=== PATIENT | female | born 1960 | race Caucasian/White ===

== ENCOUNTER 2021-10-26 16:06 | Outpatient (CLI) | payer OTHER, SELFPAY ==
--- OUTSIDE RECORDS SUMMARY | 2021-10-26 16:11 | XMS_ITS | Encounter Summary ---
:1960 Author Organization [facility] Address [address] [place] [address] Care Team Providers Name Role Phone Reagan Campos, Eva Primary Care Provider [phone] Encounter Details Date Type Department Care Team Description 03/03/2021 Orders Only [facility] Reagan Campos Screen ing Mammogram Breast Cancer; MNVirgilio [place], Screening Exam ination Diabetes Mellitus; M.D. Hypothyroidism [address] [place] [address] Social History Tobacco Use Types Packs/Day Years Used Date Smoking Tobacco: Former Cigarettes 0.8 38 1973 - 2011 Smokeless Tobacco: Never Alcohol Use Standard Drinks/Week Comments No 0 (1 standard drink = 0.6 oz pure alcoho l) Alcohol Habits Answer Date Recorded How often do you have a drink containing alcohol? Never 12/11/2018 How many drinks containing alcohol do you have on a typical Not asked day when you are drinking? How often do you have six or more drinks on one occasion? No t asked Comment: Not asked Social Isolation Answer Date Recorded In a typical week, how many times do you talk on the Patient refused 12/11/2018 phone with family, friends, or neighbors? How often do you get together with friends or Once a week 12/11/2018 relatives? How often do you attend taoism or roman catholic services? Patien t refused 12/11/2018 Do you belong to any clubs or organizations such as Patient refused 12/11/2018 taoism groups, unions, fraternal or athletic groups, or school groups? How often do you attend meetings of the clubs or Patient ref used 12/11/2018 organizations you belong to? Are you now , , , , 12/11/2018 never or living with a partner? Physical Activity Answer Date Recorded On average, how many days per week do you engage in moderate to 5 days 12/11/2018 strenuous exercise (like walking fast, running, jogging, dancing, swimming, biking, or other activities that cause a light or heavy sweat)? On average, how many minutes do you engage in exercise at th is 20 min 12/11/2018 level? Stress Answer Date Recorded Do you feel stress - tense, restless, nervous, or Only a lit tle 12/11/2018 anxious, or unable to sleep at night because your mind is troubled all the time - these days? Intimate Partner Violence Answer Date Recorded Within the last year, have you been afraid of your partner o r No 12/11/2018 ex-partner? Within the last year, have you been humiliated or emotionall y No 12/11/2018 abused in other ways by your partner or ex-partner? Within the last year, have you been kicked, hit, slapped, or No 12/11/2018 otherwise physically hurt by your partner or ex-partner? Within the last year, have you been raped or forced to have any No 12/11/2018 kind of sexual activity by your partner or ex-partner? Transportation Needs Answer Date Recorded In the past 12 months, has lack of transportation kept you f rom No 12/11/2018 medical appointments or from getting medications? In the past 12 months, has lack of transportation kept you f rom No 12/11/2018 meetings, work, or getting things needed for daily living? Education Answer Date Recorded What is the highest level of school you have completed or 12 th grade 12/11/2018 the highest degree you have received? Sex Assigned at Date Recorded Not on file documented as of this encounter Plan of Treatment Not on filedocumented as of this encounter Visit Diagnoses Diagnosis Screening Mammogram Breast Cancer Screening Examination Diabetes Mellitus Hypothyroidism documented in this encounter Additional Health Concerns Assessment Noted Time PHQ-9 Depression Total Score: 1 03/04/2020 1:48 PM DELICATESSEN DEPARTMENT MANAGER documented as of this encounter Care Teams Outside Machinist Helper Relationship Specialty Start Date End Date Reagan Campos M.B.BBrigitteSBrigitte, MEdward. PCP - General 01/27/[address] [place] [address] Jennifer Juarez, [place] [address] documented as of this encounter
--- OUTSIDE RECORDS SUMMARY | 2021-10-26 16:11 | XMS_ITS | Encounter Summary ---
:1960 Author Organization [facility] Address [address] [place] [address] Care Team Providers Name Role Phone Reagan Campos M.D. Primary Care Provider [phone] Reason for Visit Reason Comments Med Refill Encounter Details Date Type Department Care Team Description 07/20/2020 Refill Department of Family Medicine, Katina Regalado APRN, Med Refill [facility], in [place], [place] 300 [facility] 300 [place] [address] [place] [address] [phone] Social History Tobacco Use Types Packs/Day Years [...] 12/11/2018 relatives? How often do you attend denominational or spiritism services? Patien t refused 12/11/2018 Do you belong to any clubs or organizations such as Patient refused 12/11/2018 denominational groups, unions, fraternal or athletic groups, or [...] filedocumented as of this encounter Visit Diagnoses Not on filedocumented in this encounter Additional Health Concerns Assessment Noted Time PHQ-9 Depression Total Score: 1 03/04/2020 1:48 PM CS T documented as of this encounter Care Teams Car Pusher Relationship Specialty Start Date End Date Reagan Campos M.B.B.S., M.D. PCP - General 01/27/[address] [place] [address] [place] [phone] documented as of this encounter
--- OUTSIDE RECORDS SUMMARY | 2021-10-26 16:11 | XMS_ITS | Encounter Summary ---
:1960 Author Organization [facility] Address [address] [place] [address] Care Team Providers Name Role Phone Reagan Campos M.D. Primary Care Provider [phone] Reason for Visit Reason Comments Med Refill Encounter Details Date Type Department Care Team Description 04/07/2021 Refill Department of Family Medicine, Katina Regalado APRN, Med Refill [facility], in [place], [place] 300 [facility] 300 [place] [address] [place] [address] [phone] Social History Tobacco Use Types Packs/Day Years [...] 12/11/2018 relatives? How often do you attend islam or temple services? Patien t refused 12/11/2018 Do you belong to any clubs or organizations such as Patient refused 12/11/2018 islam groups, unions, fraternal or athletic groups, or [...] documented as of this encounter Care Teams Station Air Traffic Control Specialist Relationship Specialty Start Date End Date Reagan Campos M.B.B.S., M.D. PCP - General 01/27/[address] [place] [address] Glenn [place] [phone] documented as of this encounter
--- OUTSIDE RECORDS SUMMARY | 2021-10-26 16:11 | XMS_ITS | Encounter Summary ---
:1960 Author Organization [facility] Address [address] [place] [address] Care Team Providers Name Role Phone Reagan Campos M.D. Primary Care Provider [phone] Reason for Visit Reason Comments Med Refill Encounter Details Date Type Department Care Team Description 07/04/2021 Refill Department of Family Medicine, Reagan Campos I., Med Refill [facility], in [place], [place] 300 [facility] 300 [place] [address] [place] [address] [phone] Social History Tobacco Use Types Packs/Day Years [...] 12/11/2018 relatives? How often do you attend roman catholic or spiritism services? Patien t refused 12/11/2018 Do you belong to any clubs or organizations such as Patient refused 12/11/2018 roman catholic groups, unions, fraternal or athletic groups, or [...] Depression Total Score: 1 03/04/2020 1:48 PM SCREEN DOOR MAKER documented as of this encounter Care Teams Middle School Professional Relationship Specialty Start Date End Date Reagan Campos M.B.B.S., M.D. PCP - General 01/27/[address] [place] [address] [place] [address] documented as of this encounter
--- OUTSIDE RECORDS SUMMARY | 2021-10-26 16:11 | XMS_ITS | Encounter Summary ---
:1960 Author Organization [facility] Address [address] [place] [address] Care Team Providers Name Role Phone Reagan Campos M.D. Primary Care Provider [phone] Reason for Referral Specialty Diagnoses / Procedures Referred By Contact Refer red To Contact Reagan Campos M.B.B.S., [facility] Eva [address] [place] [address] Referral ID Status Reason Start Date Expiration Date Visits Requ ested Visits Authorized DING KENNEL OR CATTERY OPERATOR Encounter Details Date Type Department Care Team Description 02/18/2021 Orders Only [facility] Reagan Campos M.B.B.S., M.D. [address] [place], [place] [phone] (Wo rk) Social History Tobacco Use Types Packs/Day Years [...] 12/11/2018 relatives? How often do you attend moravian or shinto services? Patien t refused 12/11/2018 Do you belong to any clubs or organizations such as Patient refused 12/11/2018 moravian groups, unions, fraternal or athletic groups, or [...] as of this encounter Plan of Treatment Scheduled Referrals Name Type Priority Associated Order Schedule Diagnoses Covid immunization Outpatient Referral Routine Ex pected: office visit Booster 021 (Approximate), Expires: 02/18/2022 documented as of this encounter Visit Diagnoses Not on filedocumented in this encounter Additional Health Concerns Assessment Noted Time PHQ-9 Depression Total Score: 1 03/04/2020 1:48 PM BOARDING KENNEL OR CATTERY OPERATOR documented as of this encounter Care Teams Classer Relationship Specialty Start Date End Date Reagan Campos M.B.B.S., Ayla. PCP - General 01/27/[address] [place] [id number] documented as of this encounter
--- OUTSIDE RECORDS SUMMARY | 2021-10-26 16:11 | XMS_ITS | Encounter Summary ---
:1960 Author Organization [facility] Address [address] [place] [address] Care Team Providers Name Role Phone Reagan Campos M.D. Primary Care Provider [phone] Reason for Referral Specialty Diagnoses / Procedures Referred By Contact Refer red To Contact [address] [address] Referral ID Status Reason Start Date Expiration Date Visits Requ ested Visits Authorized Encounter Details Date Type Department Care Team Description 2020 Immunization Department of Daniela Ceballos Enco unter [facility], in [place] [address] [address] [facility] (Primary Dx) [address] [address] [place], [place] [phone] (Work) [phone] Social History Tobacco Use Types Packs/Day Years [...] 12/11/2018 relatives? How often do you attend yazidi or muslim services? Giulia t refused 12/11/2018 Do you belong to any clubs or organizations such as Patient refused 12/11/2018 yazidi groups, unions, fraternal or athletic groups, or [...] Treatment Scheduled Referrals Name Type Priority Associated Diagnoses Order S chedule Covid immunization Outpatient Referral Routine Encounter For E xpected: office visit COVID-19 Vaccine 08/11/2020, Subsequent; 21 days Immunization Expires: 07/22/2023 documented as of this encounter Visit Diagnoses Diagnosis Encounter For COVID-19 Vaccine Immunizat ion - Primary documented in this encounter Additional Health Concerns Assessment Noted Time PHQ-9 Depression Total Score: 1 03/04/2020 1:48 PM AIR QUALITY ENGINEER documented as of this encounter Care Teams Sweatband Perforator Relationship Specialty Start Date End Date Reagan Campos M.B.BJp, Ayla. PCP - General 01/27/[address] [place] [address] [place] [address] documented as of this encounter
--- OUTSIDE RECORDS SUMMARY | 2021-10-26 16:11 | XMS_ITS | Encounter Summary ---
:1960 Author Organization [facility] Address [address] [place] [address] Care Team Providers Name Role Phone Reagan Campos M.D. Primary Care Provider [phone] Reason for Visit Reason Comments Med Refill Encounter Details Date Type Department Care Team Description 08/30/2020 Refill Department of Family Medicine, Katina Regalado APRN, Med Refill [facility], in [place], [place] 300 [facility] 300 [place] [address] [place] [address] [phone] Social History Tobacco Use Types Packs/Day Years [...] 12/11/2018 relatives? How often do you attend scientologist or catholic services? Patien t refused 12/11/2018 Do you belong to any clubs or organizations such as Patient refused 12/11/2018 scientologist groups, unions, fraternal or athletic groups, or [...] documented as of this encounter Care Teams Bag Filler Relationship Specialty Start Date End Date Reagan Campos M.B.B.S., M.D. PCP - General 01/27/[address] [place] [address] [place] [phone] documented as of this encounter
--- OUTSIDE RECORDS SUMMARY | 2021-10-26 16:11 | XMS_ITS | Encounter Summary ---
:1960 Author Organization [facility] Address [address] [place] [address] Care Team Providers Name Role Phone Reagan Campos M.D. Primary Care Provider [phone] Encounter Details Date Type Department Care Team Description 08/16/2020 Immunization Department of [facility] For COVID-19 Medicine, [facility], in [place], [place] [address] [place] [address] [facility] [phone] Social History Tobacco Use Types Packs/Day Years [...] 12/11/2018 relatives? How often do you attend confucianism or quaker services? Patien t refused 12/11/2018 Do you belong to any clubs or organizations such as Patient refused 12/11/2018 confucianism groups, unions, fraternal or athletic groups, or [...] Diagnosis Encounter For COVID-19 Vaccine Immunizat ion documented in this encounter Additional Health Concerns Assessment Noted Time PHQ-9 Depression Total Score: 1 03/04/2020 1:48 PM ASSISTANT DISTRIBUTION MANAGER documented as of this encounter Care Teams Womens Health Nurse Practitioner Relationship Specialty Start Date End Date Reagan Campos M.B.BAyla Trammell. PCP - General 01/27/[address] [place] [address] [place], [place] [phone] documented as of this encounter
--- OUTSIDE RECORDS SUMMARY | 2021-10-26 16:11 | XMS_ITS | Clinical Summary ---
:1960 Author Organization [facility] Address [address] [place] [address] Care Team Providers Name Role Phone Reagan Campos M.D. Primary Care Provider [phone] Source Comments Patient records contain information from all sites at [facility]. For routine questions regarding patient records, call [phone] during business hours, M-F 8:00 AM - 5:00 PM Central Time. Record requests for emergency care only can be directed to [phone] at any time.[facility] Allergies Active Allergy Reactions Severity Noted Date Comments Codeine Other (see comments) 01/06/2014 Mood ch anges and several other symptoms. Medications Medication Sig Dispensed Refills Start Date End Date Status melatonin 5 mg tablet Take by mouth. 0 Active B complex-vitamins Take 1 tablet by 0 Active (BALANCE B-50) tablet mouth daily. buPROPion (WELLBUTRIN TAKE 1 180 tablet 3 11/22/2020 Active SR) 200 mg 12 hr TABLET(200 MG) tablet BY MOUTH TWICE DAILY levothyroxine TAKE 1 TABLET(75 90 tablet 3 01/25/2021 Active (SYNTHROID, MCG) BY MOUTH LEVOTHROID) 75 mcg DAILY tablet sertraline (ZOLOFT) TAKE 2 180 tablet 3 04/08/2021 Active 100 mg tablet TABLETS(200 MG) BY MOUTH DAILY gabapentin (NEURONTIN) TAKE 3 270 capsule 3 07/05/2021 Active 100 mg capsule CAPSULES(300 MG) BY MOUTH AT BEDTIME rosuvastatin (CRESTOR) TAKE 1 TABLET(20 90 tablet 3 08/17/2021 Active 20 mg tablet MG) BY MOUTH DAILY Active Problems Problem Noted Date Depression Major Recurrent 09/24/2017 Hypothyroidism 09/24/2017 Personal History Of Nicotine Dependence 09/24/2017 Overweight Body Mass Index 25-29.9 Adult 09/24/2017 Hyperlipidemia Mixed 09/24/2017 Impaired Fasting Glucose 07/13/2016 Overview: glucose 103 Osteoarthritis 12/15/2014 Restless Leg Syndrome 07/10/2013 Resolved Problems Problem Noted Date Resolved Date Incontinence Urinary Stress Female 11/02/201704/09 Depression Anxiety 03/24/2015 09/24/2017 Overview: Depression Anxiety Bone Disorder 02/23/2010 12/11/2018 Overview: DEXA 02/23/2010 low normal DEXA 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/11/2018 Dysthymia 09/01/2009 09/24/2017 Overview: Dysthymic Disorder Encounters Date Type Specialty Care Team Description 08/16/2021 Refill Family Medicine Reagan Campos M.B.B BrigitteSBrigitte, M.Nereyda Med Refill from Last 3 Months Immunizations Name Administration Dates Next Due SARS-COV-2 (COVID-19) - PFIZER (12 years or older) 1, 2020 Td (Adult), adsorbed 07/29/1996 influenza vaccine quad (FLUZONE/FLUARIX) (6 months 1 and older)(PF) Family History Medical History Relation Name Comments Bipolar Aunt Maternal Breast cancer Daughter 1 Depression Daughter 1 No Known Problems Daughter 2 Depression Daughter 3 Depression Daughter 4 Lung cancer Maternal Grandfather Smoker Hypothyroidism Maternal Grandmother Menieres disease Maternal Grandmother Diabetes mellitus - adult onset Mother Schizophrenia Mother Cancer Paternal Grandfather No Known Problems Paternal Grandmother Hypothyroidism Sister 1 Relation Name Status Comments Aunt Maternal Alive Brother Alive Daughter 1 Daughter 2 Daughter 3 Daughter 4 Father Alive Maternal Grandfather (Age 80) Maternal Grandmother Mother Alive Paternal Grandfather Paternal Grandmother (Age 88) Sister 1 Alive Sister 2 Alive Social History Tobacco Use Types Packs/Day Years [...] 12/11/2018 relatives? How often do you attend alevism or yarsanism services? Patien t refused 12/11/2018 Do you belong to any clubs or organizations such as Patient refused 12/11/2018 alevism groups, unions, fraternal or athletic groups, or [...] Assigned at Date Recorded Not on file Last Filed Vital Signs Vital Sign Reading Time Taken Comments Blood Pressure 124/74 03/04/2020 1:49 PM DIRECTOR OF RESEARCH Pulse 65 03/04/2020 1:49 PM DIRECTOR OF RESEARCH Temperature 36.4 ??C (97.5 ??F) 03/04/2020 1:49 PM DIRECTOR OF RESEARCH Respiratory Rate 16 03/04/2020 1:49 PM DIRECTOR OF RESEARCH Oxygen Saturation - - Inhaled Oxygen Concentration - - Weight 72.3 kg (159 lb 6.3 oz) 03/08/2020 9:05 AM DIRECTOR OF RESEARCH Height 168.2 cm (5' 6.22) 03/08/2020 9:05 AM DIRECTOR OF RESEARCH Body Mass Index 25.56 03/08/2020 9:05 AM DIRECTOR OF RESEARCH Plan of Treatment Health Maintenance Due Date Last Done Comments CT Colonography 1960 Cologuard 1960 FIT 1960 HIV Screening 1960 Hepatitis C Screening 1960 Lung Cancer Screening 1960 DTaP,Tdap,and Td Vaccines 07/30/1996 07/29/1996 (1 - Tdap) Zoster Vaccines (1 of 2) 2010 Depression Monitoring 07/02/2020 03/04/2020 (PHQ-9) COVID-19 Vaccine (3 - 01/16/2021 08/16/2020, 2020 Booster for Pfizer series) Fasting Glucose for 03/09/2021 03/09/2020, 12/12/2018, Diabetes Screening 11/01/2017, Additional history exists Thyroid Stimulating Hormone 03/09/2021 03/09/2020, 12/13/19 19, (TSH) test for thyroid 09/20/2017, Additional function history exists Mammogram 03/16/2021 03/16/2020, 03/04/2020, 12/12/2018, Additional history exists Influenza Vaccine (#1) 2021 03/04/2020 Cervical Cancer Screening 11/01/2022 11/01/2017, 11/01/2017 , 07/27/2014, Additional history exists Colonoscopy 01/14/2023 01/14/2013 Colorectal Cancer Screening 01/14/2023 Lipid (Cholesterol) 03/09/2025 03/09/2020, 12/12/2018, Screening 11/01/2017, Additional history exists Pneumococcal vaccine (0-64 Aged Out No lo nger eligible years) based on patient 's age to complete this topic Insurance Payer Benefit Plan / Subscriber ID Effective Phone Address T ype Group Dates [facility] [id number] 2018-Pres [phone] [address] [employer] [phone] [place] [address] Care Teams Bottle Label Inspector Relationship Specialty Start Date End Date Reagan Campos M.B.BBrigitteSBrigitte, MEdward. PCP - General 01/27/[address] [place] [address] [place] [phone]
--- OUTSIDE RECORDS SUMMARY | 2021-10-26 16:11 | XMS_ITS | Encounter Summary ---
:1960 Author Organization [facility] Address [address] [place] [address] Care Team Providers Name Role Phone Reagan Campos M.D. Primary Care Provider [phone] Reason for Visit Reason Comments Med Refill Encounter Details Date Type Department Care Team Description 01/23/2021 Refill Department of Family Medicine, Reagan Campos I., Med Refill [facility], in [place], [place] 300 [facility] 300 [place] [address] [place] [address] [phone] Social History Tobacco Use Types Packs/Day Years [...] 12/11/2018 relatives? How often do you attend mormon or sikh services? Patien t refused 12/11/2018 Do you belong to any clubs or organizations such as Patient refused 12/11/2018 mormon groups, unions, fraternal or athletic groups, or [...] on file documented as of this encounter Miscellaneous Notes Telephone Encounter - Roselia Corcoran - 01/25/2021 1:09 PM CST Lab Results Component Value Date TSH 1.3 03/09/2020 FITTER AMMONIA documented in this encounter Plan of Treatment Not on filedocumented as of this encounter Visit Diagnoses Not on filedocumented in this encounter Additional Health Concerns Assessment Noted Time PHQ-9 Depression Total Score: 1 03/04/2020 1:48 PM PIPE FITTER AMMONIA documented as of this encounter Care Teams System Sales Consultant Relationship Specialty Start Date End Date Reagan Campos M.B.B.S., M.D. PCP - General 01/27/[address] [place] [address] [place] [address] documented as of this encounter
--- OUTSIDE RECORDS SUMMARY | 2021-10-26 16:11 | XMS_ITS | Encounter Summary ---
:1960 Author Organization [facility] Address [address] [place] [address] Care Team Providers Name Role Phone Reagan Campos M.D. Primary Care Provider [phone] Reason for Visit Reason Comments Med Refill Encounter Details Date Type Department Care Team Description 11/19/2020 Refill Department of Family Medicine, Katina Regalado APRN, Med Refill [facility], in [place], [place] 300 [facility] 300 [place] [address] [place] [address] [phone] Social History Tobacco Use Types Packs/Day Years [...] 12/11/2018 relatives? How often do you attend druze or amish services? Patien t refused 12/11/2018 Do you belong to any clubs or organizations such as Patient refused 12/11/2018 druze groups, unions, fraternal or athletic groups, or [...] documented as of this encounter Care Teams Senior Operator Relationship Specialty Start Date End Date Reagan Campos M.B.B.S., M.D. PCP - General 01/27/[address] [place] [address] [place] [phone] documented as of this encounter
--- OUTSIDE RECORDS SUMMARY | 2021-10-26 16:11 | XMS_ITS | Encounter Summary ---
:1960 Author Organization [facility] Address [address] [place] [address] Care Team Providers Name Role Phone Reagan Campos M.D. Primary Care Provider [phone] Reason for Visit Reason Comments Med Refill Encounter Details Date Type Department Care Team Description 01/11/2021 Refill Department of Family Medicine, Reagan Campos I., Med [facility]ill [facility], in [place], [place] 300 [facility] 300 [place] [address] [place] [address] [phone] Social History Tobacco Use Types Packs/Day Years [...] 12/11/2018 relatives? How often do you attend hoahaoism or advent services? Patien t refused 12/11/2018 Do you belong to any clubs or organizations such as Patient refused 12/11/2018 hoahaoism groups, unions, fraternal or athletic groups, or [...] Depression Total Score: 1 03/04/2020 1:48 PM POULTICE MACHINE OPERATOR documented as of this encounter Care Teams Barrel Tester Relationship Specialty Start Date End Date Reagan Campos M.B.B.S., M.D. PCP - General 01/27/[address] [place] [address] [place] [address] documented as of this encounter
--- OUTSIDE RECORDS SUMMARY | 2021-10-26 16:12 | XMS_ITS | Encounter Summary ---
:1960 Author Organization [facility] Address [address] [place] [address] Care Team Providers Name Role Phone Reagan Campos M.D. Primary Care Provider [phone] Reason for Visit Reason Comments Med Refill Encounter Details Date Type Department Care Team Description 01/13/2020 Refill Department of Family Medicine, Carrie Hirsch APRN, Med Refill [facility], in [place], [place] [address] [address] [place] [address] [phone] Social History Tobacco Use Types Packs/Day Years Used Date Smoking Tobacco: Former Smokeless Tobacco: Never Alcohol Use Standard Drinks/Week [...] 12/11/2018 relatives? How often do you attend bahai or christianity services? Patien t refused 12/11/2018 Do you belong to any clubs or organizations such as Patient refused 12/11/2018 bahai groups, unions, fraternal or athletic groups, or [...] Assessment Noted Time PHQ-9 Depression Total Score: 5 12/12/2018 7:47 AM CDT documented as of this encounter Care Teams Supervisor Carbon Electrodes Relationship Specialty Start Date End Date Reagan Campos M.B.B.S., M.D. PCP - General 01/27/[address] [place], [place] [address]miranda [place], [place] [address] documented as of this encounter
--- OUTSIDE RECORDS SUMMARY | 2021-10-26 16:12 | XMS_ITS | Encounter Summary ---
:1960 Author Organization [facility] Address [address] [place] [address] Care Team Providers Name Role Phone Reagan Campos M.D. Primary Care Provider [phone] Encounter Details Date Type Department Care Team Description 02/18/2020 Clinical Communication Department of [place], Obstetrics and Sheri BLACK, Gynecology in [facility] [address] [place] [address] [facility] [phone] Social History Tobacco Use Types Packs/Day Years [...] 12/11/2018 relatives? How often do you attend jew or worship services? Patien t refused 12/11/2018 Do you belong to any clubs or organizations such as Patient refused 12/11/2018 jew groups, unions, fraternal or athletic groups, or [...] this encounter Miscellaneous Notes Telephone Encounter - Claudia Joe Millicent - 02/18/2020 10:21 AM CST Reason for Communication: Patient is requesting to see Dr. Torres for an annual well woman exam Current Can Nursing/Provider leave a detailed message?: yes Did the patient refuse triage through Nurse line? (for symptom based concerns): na Action Needed: please advise Name of Medication (if relevant): CREAM FREEZER documented in this encounter Plan of Treatment Not on filedocumented as of this encounter Visit Diagnoses Not on filedocumented in this encounter Additional Health Concerns Assessment Noted Time PHQ-9 Depression Total Score: 5 12/12/2018 7:47 AM CDT documented as of this encounter Care Teams House Carpenter Helper Relationship Specialty Start Date End Date Reagan Campos M.B.B.S., MEdward. PCP - General 01/27/[address] [place] [address] [place] [phone] documented as of this encounter
--- OUTSIDE RECORDS SUMMARY | 2021-10-26 16:12 | XMS_ITS | Encounter Summary ---
:1960 Author Organization [facility] Address [address] [place] [address] Care Team Providers Name Role Phone Reagan Campos M.D. Primary Care Provider [phone] Reason for Referral Outpatient (Routine) - Closed Specialty Diagnoses / Procedures Referred By Contact Refer red To Contact Diagnoses Abnormal Mammogram Reagan Campos [facility] [place] [facility] Procedures BI Breast Diagnostic Left with Tomosynthesis Eva Poole [address] [place] [address] Referral ID Status Reason Start Date Expiration Date Visits Requ ested Visits Authorized [id number] Closed 03/04/2020 03/04/2021 1 1 D HANGER Reason for Visit Outpatient (Routine) - Closed Specialty Diagnoses / Procedures Referred By Contact Refer red To Contact Diagnoses Abnormal Mammogram Reagan Campos [facility] [place] [facility] Procedures BI Breast Diagnostic Left with Tomosynthesis CristobalBBrigitteSEva Briggs [address] [place] [address] Referral ID Status Reason Start Date Expiration Date Visits Requ ested Visits Authorized [id number] Closed 03/04/2020 03/04/2021 1 1 Encounter Details Date Type Department Care Team Description 03/16/2020 Hospital Encounter Department of Reagan Campos Mammogram Radiology in Virgilio Rubin [place], [place] M.D. [address] [place] [phone] Social History Tobacco Use Types Packs/Day Years [...] 12/11/2018 relatives? How often do you attend gnosticist or sabianism services? Patien t refused 12/11/2018 Do you belong to any clubs or organizations such as Patient refused 12/11/2018 gnosticist groups, unions, fraternal or athletic groups, or [...] on file documented as of this encounter Medications at Time of Discharge Medication Sig Dispensed Refills Start Date End Date B complex-vitamins Take 1 tablet by 0 (BALANCE B-50) tablet mouth daily. melatonin 5 mg tablet Take by mouth. 0 buPROPion (WELLBUTRIN Take 1 tablet (200 180 tablet 1 202011/19/2020 SR) 200 mg 12 hr tablet mg total) by mouth 2 (two) times a day. gabapentin (NEURONTIN) Take 3 capsules 270 capsule 0 021 2020 100 mg capsule (300 mg total) by mouth at bedtime. levothyroxine Take 1 tablet (75 90 tablet 3 12/22/201912/29 (SYNTHROID, LEVOTHROID) mcg total) by mouth 75 mcg tablet daily. rosuvastatin (CRESTOR) Take 2 tablets (20 90 tablet 3 03/1008/31/2020 10 mg tablet mg total) by mouth daily. Start with one tab for 2 weeks, then increase to 2 tabs daily for a total of 20 mg daily. sertraline (ZOLOFT) 100 Take 2 tablets (200 180 tablet 3 08/202001/13/2021 mg tablet mg total) by mouth daily. documented as of this encounter Plan of Treatment Not on filedocumented as of this encounter Procedures Procedure Name Priority Date/Time Associated Comments Diagnosis BI BREAST DIAGNOSTIC RAD - Routine 03/16/2020 1:46 Abnormal Res ults for LEFT WITH (most inpatients PM BLIND HANGER Mammogram this proced ure TOMOSYNTHESIS and all are in the outpatients) results section. documented in this encounter Results BI Breast Diagnostic Left with Tomosynthesis (03/16/2020 1:46 PM BLIND HANGER) Anatomical Region Laterality Modality Breast, Breast Imaging RST LOS, Breast Imaging ARZ LOS, Shi st Left Mammography Imaging FLA LOS Specimen (Source) Anatomical Collection Method Collection Time Re ceived Time Location / / Volume Laterality 03/16/2020 3:55 PM BLIND HANGER Impressions 03/16/2020 4:00 PM BLIND HANGER No mammographic findings of malignancy. RECOMMENDATION: ??Annual Screening Mammo gram I discussed my findings and impression w ith the patient. Specifically, I discussed the concordance of the mammogr aphic finding with the ultrasound finding of a cystic structure typical of clustered microcysts without suspicious features such as mass or Doppler flow. W e briefly discussed the scientific underpinnings for clustered microcysts a s a benign finding. We discussed overall stability of the left breast. I recommen d patient return for annual screening mammography. I told the patient to repor t any new or changing symptoms in either breast to her primary care provider. All questions answered. ASSESSMENT: ??BI-RADS: 2: Benign. Narrative 03/16/2020 4:00 PM BLIND HANGER EXAM: ??BI BREAST DIAGNOSTIC LEFT WITH TOMOSYNTHESIS, BI ULTRASOUND BREAST FOCUSED LEFT INDICATION: ??Possible area of focal asy mmetry in the upper-outer depth left breast. COMPARISON: ??Prior studies dating back to 2009. DENSITY: ??c. The breast(s) are heteroge neously dense, which may obscure small masses. FINDINGS: ?? MAMMOGRAPHY: Possible focal asymmetry pe rsists as a lobulated isodense mass in the left slightly outer slightly lower b reast 1 cm from the nipple. ULTRASOUND: Targeted ultrasound of the l eft breast shows at the 4:00 position 1 cm from the nipple a circumscribed anech oic mass measuring 0.7 x 0.4 x 0.8 cm with small internal cysts/septations wit h features typical of clustered microcyst. This corresponds in size and location and morphology with the mammographic finding. I confirmed these findings myself with live ultrasound. Procedure Note Elton Calderon M.D. - 03/16/2020Formatt ing of this note might be different from the original. EXAM: BI BREAST DIAGNOSTIC LEFT WITH PETE OSYNTHESIS, BI ULTRASOUND BREAST FOCUSED LEFT INDICATION: Possible area of focal asymm etry in the upper-outer depth left breast. COMPARISON: Prior studies dating back to 2009. DENSITY: c. The breast(s) are heterogene ously dense, which may obscure small masses. FINDINGS: MAMMOGRAPHY: Possible focal asymmetry pe rsists as a lobulated isodense mass in the left slightly outer slightly lower b reast 1 cm from the nipple. ULTRASOUND: Targeted ultrasound of the l eft breast shows at the 4:00 position 1 cm from the nipple a circumscribed anech oic mass measuring 0.7 x 0.4 x 0.8 cm with small internal cysts/septations wit h features typical of clustered microcyst. This corresponds in size and location and morphology with the mammographic finding. I confirmed these findings myself with live ultrasound. IMPRESSION: No mammographic findings of malignancy. RECOMMENDATION: Annual Screening Mammogr am I discussed my findings and impression w ith the patient. Specifically, I discussed the concordance of the mammogr aphic finding with the ultrasound finding of a cystic structure typical of clustered microcysts without suspicious features such as mass or Doppler flow. W e briefly discussed the scientific underpinnings for clustered microcysts a s a benign finding. We discussed overall stability of the left breast. I recommen d patient return for annual screening mammography. I told the patient to repor t any new or changing symptoms in either breast to her primary care provider. All questions answered. ASSESSMENT: BI-RADS: 2: Benign. Reagan Poole M.D. IMG BI PROCEDURES documented in this encounter Visit Diagnoses Diagnosis Abnormal Mammogram documented in this encounter Additional Health Concerns Assessment Noted Time PHQ-9 Depression Total Score: 1 03/04/2020 1:48 PM BLIND HANGER documented as of this encounter Care Teams Commercial Loan Manager Relationship Specialty Start Date End Date Reagan Campos M.B.B.S., M.D. PCP - General 01/27/[address] [place] [phone] documented as of this encounter
--- OUTSIDE RECORDS SUMMARY | 2021-10-26 16:12 | XMS_ITS | Encounter Summary ---
:1960 Author Organization [facility] Address [address] [place] [address] Care Team Providers Name Role Phone Reagan Campos M.D. Primary Care Provider [phone] Reason for Visit Reason Comments Med Refill Encounter Details Date Type Department Care Team Description 12/22/2019 Refill Department of Family Medicine, Reagan Campos I., Med Refill [facility], in Stephen Poole [place], [place] 300 [facility] [address] [place] [address] [place] [address] [phone] Social History Tobacco Use Types Packs/Day Years [...] How often do you attend druze or samaritan services? Patien t refused 12/11/2018 Do you [...] documented as of this encounter Care Teams Design Studio Consultant Relationship Specialty Start Date End Date Reagan Campos M.B.B.S., M.D. PCP - General 01/27/[address] [place] [address] Jennifer [place] [phone] documented as of this encounter
--- OUTSIDE RECORDS SUMMARY | 2021-10-26 16:12 | XMS_ITS | Encounter Summary ---
:1960 Author Organization [facility] Address [address] [place] [address] Care Team Providers Name Role Phone Reagan Campos M.D. Primary Care Provider [phone] Reason for Referral Outpatient (Routine) - Closed Specialty Diagnoses / Procedures Referred By Contact Refer red To Contact Diagnoses Screening Mammogram Breast Cancer Reagan Campos [facility] [place] [facility] Procedures BI Breast Screening Bilateral Stephen.BBrigitteBEva Trammell [address] [place] [address] Referral ID Status Reason Start Date Expiration Date Visits Requ ested Visits Authorized [id number] Closed 12/01/2019 11/30/2020 1 1 H CLEANER Reason for Visit Outpatient (Routine) - Closed Specialty Diagnoses / Procedures Referred By Contact Refer red To Contact Diagnoses Screening Mammogram Breast Cancer Reagan Campos [facility] [place] [facility] Procedures BI Breast Screening Bilateral Stephen.BBrigitteBEva Trammell [address] [place] [address] Referral ID Status Reason Start Date Expiration Date Visits Requ ested Visits Authorized [id number] Closed 12/01/2019 11/30/2020 1 1 Encounter Details Date Type Department Care Team Description 03/04/2020 Hospital Encounter Department of Reagan Campos Mammogram Radiology in I., M.B.B.S., Breast Cancer [place], [place] Eva [address] [facility] 300 [facility] [place] [phone] Social History Tobacco Use Types Packs/Day Years Used Date Smoking Tobacco: Former Cigarettes 0.5 Quit : 2011 Smokeless Tobacco: Never Comments: Estimates 40 years of smoking history where she smoked .5-1 pack per day Alcohol Use Standard Drinks/Week Comments No 0 [...] 12/11/2018 relatives? How often do you attend zoroastrian or oriental orthodox services? Patien t refused 12/11/2018 Do you belong to any clubs or organizations such as Patient refused 12/11/2018 zoroastrian groups, unions, fraternal or athletic groups, or [...] a day. gabapentin (NEURONTIN) Take 3 capsules (300 270 capsule 0 2020 100 mg capsule mg total) by mouth at bedtime. levothyroxine Take 1 tablet (75 90 tablet 3 12/22/201912/29 (SYNTHROID, LEVOTHROID) mcg total) by mouth 75 mcg tablet daily. pravastatin (PRAVACHOL) Take 1 tablet (20 mg 90 tablet 3 03/10/2020 20 mg tablet total) by mouth at bedtime. A higher dose of medication would be advised sertraline (ZOLOFT) 100 Take 2 tablets (200 180 tablet 3 08/202001/13/2021 mg tablet mg total) by mouth daily. documented as of this encounter Plan of Treatment Not on filedocumented as of this encounter Procedures Procedure Name Priority Date/Time Associated Comments Diagnosis BI BREAST RAD - Routine 03/04/2020 1:20 Screening Results for this SCREENING (most inpatients PM BOOTH CLEANER Mammogram Breast procedu re are in BILATERAL and all Cancer the results outpatients) section. documented in this encounter Results (ABNORMAL) BI Breast Screening Bilateral (03/04/2020 1:20 PM BOOTH CLEANER) Anatomical Region Laterality Modality Breast, Breast Imaging RST LOS, Breast Imaging ARZ LOS, Shi st Bilateral Mammography Imaging FLA LOS Specimen (Source) Anatomical Collection Method Collection Time Re ceived Time Location / / Volume Laterality 03/04/2020 1:25 PM BOOTH CLEANER Impressions 03/04/2020 1:26 PM BOOTH CLEANER Incomplete. ??Need additional imaging evaluation. RECOMMENDATION: ??Additional Imaging Diagnostic imaging and breast ultrasound evaluation. ASSESSMENT: ??BI-RADS: 0 - Incomplete: N eeds Additional Imaging Evaluation. Narrative 03/04/2020 1:26 PM BOOTH CLEANER EXAM: ??BI BREAST SCREENING BILATERAL Current study was evaluated with a [employer] Aided Detection (CAD) system. INDICATION: ??Screening mammogram. COMPARISON: ??Prior exam(s) were availab le and reviewed for comparison. DENSITY: ??c. The breast(s) are heteroge neously dense, which may obscure small masses. FINDINGS: ??Possible area of focal asymm etry within the upper, outer anterior/middle depth of the left breast . Patient will recalled by the radiology d epartment for additional diagnostic evaluation of the left breast. Nothing for malignancy within the right breast. Procedure Note Tani Oseguera M.D. - 03/04/2020Forma tting of this note might be different from the original. EXAM: BI BREAST SCREENING BILATERAL Current study was evaluated with a [employer] Aided Detection (CAD) system. INDICATION: Screening mammogram. COMPARISON: Prior exam(s) were available and reviewed for comparison. DENSITY: c. The breast(s) are heterogene ously dense, which may obscure small masses. FINDINGS: Possible area of focal asymmet ry within the upper, outer anterior/middle depth of the left breast . Patient will recalled by the radiology d epartment for additional diagnostic evaluation of the left breast. Nothing for malignancy within the right breast. IMPRESSION: Incomplete. Need additional imaging eval uation. RECOMMENDATION: Additional Imaging Diagnostic imaging and breast ultrasound evaluation. ASSESSMENT: BI-RADS: 0 - Incomplete: Nee ds Additional Imaging Evaluation. Reagan Poole M.D. IMG BI PROCEDURES documented in this encounter Visit Diagnoses Diagnosis Screening Mammogram Breast Cancer documented in this encounter Additional Health Concerns Assessment Noted Time PHQ-9 Depression Total Score: 1 03/04/2020 1:48 PM BOOTH CLEANER documented as of this encounter Care Teams Inside Finisher Relationship Specialty Start Date End Date Reagan Campos M.B.B.S., M.D. PCP - General 01/27/[address] [place] [phone] documented as of this encounter
--- OUTSIDE RECORDS SUMMARY | 2021-10-26 16:12 | XMS_ITS | Encounter Summary ---
:1960 Author Organization [facility] Address [address] [place] [address] Care Team Providers Name Role Phone Danica England M.D. Primary Care Provider Encounter Details Date Type Department Care Team Description 12/12/2018 Hospital Encounter Department of Danica England Routine Screening Radiology in Eva Faria Breast Exam [address] [place] [phone] Social History Tobacco Use Types Packs/Day [...] 12/11/2018 relatives? How often do you attend jewish or latter day services? Patien t refused 12/11/2018 Do you belong to any clubs or organizations such as Patient refused 12/11/2018 jewish groups, unions, fraternal or athletic groups, or [...] (WELLBUTRIN Take 1 tablet (200 180 tablet 3 201801/17/2019 SR) 200 mg 12 hr tablet mg total) by mouth 2 (two) times a day. gabapentin (NEURONTIN) Take 3 capsules (300 270 capsule 3 02/03/2020 100 mg capsule mg total) by mouth at bedtime. levothyroxine Take 1 tablet (75 90 tablet 3 12/12/201811/27 (SYNTHROID, LEVOTHROID) mcg total) by mouth 75 mcg tablet daily. pravastatin (PRAVACHOL) Take 1 tablet (20 mg 90 tablet 0 03/12/2019 20 mg tablet total) by mouth at bedtime. A higher dose of medication would be advised sertraline (ZOLOFT) 100 Take 2 tablets (200 180 tablet 3 12/16/2019 mg tablet mg total) by mouth daily. documented as of this encounter Plan of Treatment Not on filedocumented as of this encounter Procedures Procedure Name Priority Date/Time Associated Comments Diagnosis BI BREAST RAD - Routine 12/12/2018 9:04 Routine Screening Result s for this SCREENING (most inpatients AM CDT Breast Exam procedure a re in BILATERAL and all the results outpatients) section. documented in this encounter Results BI Breast Screening Bilateral (12/12/2018 9:04 AM CDT) Anatomical Region Laterality Modality Breast, Breast Imaging RST LOS, Breast Imaging ARZ LOS, [place] st Bilateral Mammography Imaging FLA LOS Specimen (Source) Anatomical Collection Method Collection Time Re ceived Time Location / / Volume Laterality 12/12/2018 9:05 AM CDT Impressions 12/12/2018 9:06 AM CDT Negative. RECOMMENDATION: ??Annual Screening Mammo gram ASSESSMENT: ??BI-RADS: 1: Negative. Narrative 12/12/2018 9:06 AM CDT EXAM: ??BI BREAST SCREENING BILATERAL Current study was evaluated with a [employer] Aided Detection (CAD) system. INDICATION: ??Screening mammogram. COMPARISON: ??Prior exam(s) were availab le and reviewed for comparison. DENSITY: ??b. There are scattered areas of fibroglandular density. FINDINGS: ??No mammographic findings of malignancy. Procedure Note Tani Oseguera M.D. - 12/12/2018Forma tting of this note might be different from the original. EXAM: BI BREAST SCREENING BILATERAL Current study was evaluated with a [employer]u ter Aided Detection (CAD) system. INDICATION: Screening mammogram. COMPARISON: Prior exam(s) were available and reviewed for comparison. DENSITY: b. There are scattered areas of fibroglandular density. FINDINGS: No mammographic findings of ma lignancy. IMPRESSION: Negative. RECOMMENDATION: Annual Screening Mammogr am ASSESSMENT: BI-RADS: 1: Negative. Danica England M.D. IMG BI PROCEDURES documented in this encounter Visit Diagnoses Diagnosis Routine Screening Breast Exam documented in this encounter Additional Health Concerns Assessment Noted Time PHQ-9 Depression Total Score: 5 12/12/2018 7:47 AM CDT documented as of this encounter Care Teams Loan Workout Officer Relationship Specialty Start Date End Date Danica England M.D. PCP - General 08/10/16 01/26/19 documented as of this encounter
--- OUTSIDE RECORDS SUMMARY | 2021-10-26 16:12 | XMS_ITS | Encounter Summary ---
:[address] [facility] Address [address] [place] [address] Care Team Providers Name Role Phone Danica England M.D. Primary Care Provider Encounter Details Date Type Department Care Team Description 12/12/2018 Hospital Encounter Department of Danica England Defi ciency Vitamin Laboratory Medicine M.DBrigitte in [address] [phone] (Work) [phone] Social History Tobacco Use Types Packs/Day Years [...] 12/11/2018 relatives? How often do you attend congregational or denominational services? Patien t refused 12/11/2018 Do you belong to any clubs or organizations such as Patient refused 12/11/2018 congregational groups, unions, fraternal or athletic groups, or [...] 5 mg tablet Take by mouth. 0 documented as of this encounter Plan of Treatment Not on filedocumented as of this encounter Procedures Procedure Name Priority Date/Time Associated Diagnosis Comme nts VITAMIN B12 ASSAY, Routine 12/12/2018 8:27 AM Deficiency Vitam in Results for this S CDT procedure are i n the results section. documented in this encounter Results Vitamin B12 Assay (12/12/2018 8:27 AM CDT) P athologist Signature Vitamin B12 [phone] 12/12/2018 AUST Assay, S ng/L 4:39 PM CDT Comment: Biotin has been identified by the iraj felix as a potential interfering substance. ??Higher concentr ations of biotin may be found in multivitamins, hair/nail supple ments, and workout supplements. ??If the result does not ma [facility] clinical observations, repeat testing after patient refrains fr om the use of supplements for at least 12 hours. Specimen Anatomical Collection Method Collection Time Receive d Time (Source) Location / / Volume Laterality Blood (Blood, 12/12/2018 8:27 AM 12/13/19 19 4:00 Venous) CDT PM CDT Danica England M.D. LAB BLOOD ADD-ON Performing Organization Address City/State/ZIP Code Phon e Number [facility] [address] LAB AUST [facility] - [address] documented in this encounter Visit Diagnoses Diagnosis Deficiency Vitamin documented in this encounter Additional Health Concerns Assessment Noted Time PHQ-9 Depression Total Score: 5 12/12/2018 7:47 AM CDT documented as of this encounter Care Teams Yacht Master Relationship Specialty Start Date End Date Danica England M.D. PCP - General 08/10/16 01/26/19 documented as of this encounter
--- OUTSIDE RECORDS SUMMARY | 2021-10-26 16:12 | XMS_ITS | Encounter Summary ---
:1960 Author Organization [facility] Address [address] [place] [address] Care Team Providers Name Role Phone Danica England M.D. Primary Care Provider Reason for Visit Reason Comments Med Refill Encounter Details Date Type Department Care Team Description 12/06/2018 Refill Department of Family Medicine, Danica ndiaye M.D. Med Refill [facility], in [facility] [place] [address] [place] [address] [place] [address] [phone] Social History Tobacco Use Types Packs/Day Years [...] 12/11/2018 relatives? How often do you attend yarsani or jew services? Patien t refused 12/11/2018 Do you belong to any clubs or organizations such as Patient refused 12/11/2018 yarsani groups, unions, fraternal or athletic groups, or [...] or getting things needed for daily living? Sex Assigned at Date Recorded Not on file documented as of this encounter Miscellaneous Notes Telephone Encounter - Bernadette Vivas - 12/06/2018 12:58 PM CDT At last refill it was noted that the patient needed an appointment and this has yet to happen so please refill/refuse as you feel appropriate. Please let your schedulers know if an appointment is needed. documented in this encounter Plan of Treatment Not on filedocumented as of this encounter Visit Diagnoses Not on filedocumented in this encounter Additional Health Concerns Assessment Noted Time PHQ-9 Depression Total Score: 1 09/25/2017 9:39 AM CDT documented as of this encounter Care Teams Minute Clerk For Basic Traffic Relationship Specialty Start Date End Date Danica England M.D. PCP - General 08/10/16 01/26/19 documented as of this encounter
--- OUTSIDE RECORDS SUMMARY | 2021-10-26 16:12 | XMS_ITS | Encounter Summary ---
:1960 Author Organization [facility] Address [address] [place] [address] Care Team Providers Name Role Phone Reagan Campos M.D. Primary Care Provider [phone] Reason for Referral Outpatient (Routine) - Closed Specialty Diagnoses / Procedures Referred By Contact Refer red To Contact Pulmonary Medicine Diagnoses Smoking Tobacco Use Personal History David Milian M.D. [facility] [address] [place] [address] Referral ID Status Reason Start Date Expiration Date Visits Requ ested Visits Authorized [id number] Closed 03/08/2020 03/08/2021 1 1 Scheduling Instructions To be scheduled prior to CT scan URSEMENT CLERK MRI/CAT/PET Scan (Routine) - Closed Specialty Diagnoses / Procedures Referred By Contact Refer red To Contact Radiology Diagnoses Smoking Tobacco Use Personal History David Milian M.D. [facility] Procedures CT Chest Lung Cancer Screen Low Dose without IV Contrast [address] [place] [address] Referral ID Status Reason Start Date Expiration Date Visits Requ ested Visits Authorized [id number] Closed 03/08/2020 03/08/2021 1 1 URSEMENT CLERK Reason for Visit Reason Comments Lung Screening Initial Outpatient (Routine) - Closed Specialty Diagnoses / Procedures Referred By Contact Refer red To Contact Pulmonary Medicine Katina Regalado APRN, [place] C.N.P. [address] [place] [address] Referral ID Status Reason Start Date Expiration Date Visits Requ ested Visits Authorized [id number] Closed 03/04/2020 03/04/2021 1 1 Encounter Details Date Type Department Care Team Description 03/08/2020 Virtual Visit Division of Pulmonary Katina Regalado APRN, C.N.P. [address] [place] [address] Smoking Tobacco Use Medicine in [place], Dina Sadler, R.N. Personal History [place] (Primary Dx) [address] [place] [address] Social History Tobacco Use Types Packs/Day Years [...] 12/11/2018 relatives? How often do you attend hinduism or samaritan services? Patien t refused 12/11/2018 Do you belong to any clubs or organizations such as Patient refused 12/11/2018 hinduism groups, unions, fraternal or athletic groups, or [...] on file documented as of this encounter Last Filed Vital Signs Vital Sign Reading Time Taken Comments Blood Pressure - - Pulse - - Temperature - - Respiratory Rate - - Oxygen Saturation - - Inhaled Oxygen Concentration - - Weight 72.3 kg (159 lb 6.3 oz) 03/08/2020 9:05 AM DISBURSEMENT CLERK Height 168.2 cm (5' 6.22) 03/08/2020 9:05 AM DISBURSEMENT CLERK Body Mass Index 25.56 03/08/2020 9:05 AM DISBURSEMENT CLERK documented in this encounter Progress Notes Dina Sadler R.N. - 03/08/2020 9:00 AM CST [facility] Lung Screening Program Initial Eligibility Evaluation Antonina Harman is a 59 y.o. female referred to the [facility] lung screening program for assessment todetermine eligibility for enrollment. She was contacted today by phone and enrollment and exclusion criteria were reviewed. Patient reports that she quit smoking about 9 years ago. She has a 30.40 pack- year smoking history. Social History Tobacco Use Smoking status: Former Smoker Packs/day: 0.80 Years: 38.00 Pack years: 30.4 Types: Cigarettes Start date: 1973 Quit date: 2011 Years since quittin.0 Exclusion criteria History of lung cancer within the past 5-years (still in active surveillance; consider screening after 5 years). No Poor lung function or other serious conditions that would not allow you to be a candidate for surgery if needed. No Need for continuous oxygen supplementation. No An unexplained weight loss of more than 15 lbs. in the prior 12 months/year. No Recent hemoptysis (coughing up blood). No A chest CT examination in the prior 12 months. No Current symptoms of an acute or resolving respiratory tract infection (best to reschedule at least 1month after symptom resolution). No [facility] 2011 ([id number]) Lung Cancer Risk Prediction Model Percent probability of lung cancer in 6 years calculated from today's answers = 1.035% Personal history of any cancer: no Final Eligibility Determination Patient meets inclusion criteria based on USPSTF guidelines. Exclusion criteria do not apply. Patient is planning to contact their insurance company prior to the scan. She will then schedule theappointments pending insurance coverage. URSEMENT CLERK documented in this encounter Plan of Treatment Scheduled Orders Name Type Priority Associated Diagnoses Order S chedule CT Chest Lung Imaging RAD - Routine (most Smoking Tobacco Use Expected: Cancer Screen Low inpatients and all Personal History 03/08/2020 Dose without IV outpatients) (Approximate ), Contrast Expires: 03/08/2023 Scheduled Referrals Name Type Priority Associated Diagnoses Order S chedule PUL Lung screening Outpatient Referral Routine Smoking Tobacco Use Expected: program only Personal History 03/08/2020 (Approximate), Expires: 03/08/2023 documented as of this encounter Visit Diagnoses Diagnosis Smoking Tobacco Use Personal History - P rimary documented in this encounter Additional Health Concerns Assessment Noted Time PHQ-9 Depression Total Score: 1 03/04/2020 1:48 PM DISBURSEMENT CLERK documented as of this encounter Care Teams Marine Equipment Sales Engineer Relationship Specialty Start Date End Date Reagan Campos M.B.B.S., Ayla. PCP - General 01/27/[address] [place], [place] [address] [address] documented as of this encounter
--- OUTSIDE RECORDS SUMMARY | 2021-10-26 16:12 | XMS_ITS | Encounter Summary ---
:1960 Author Organization [facility] Address [address] [place] [address] Care Team Providers Name Role Phone Reagan Campos M.D. Primary Care Provider [phone] Encounter Details Date Type Department Care Team Description 03/17/2020 Clinical Communication Department of [facility] Katina Regalado, [facility], [place] WAYNE [facility], [address] [address] [place], [place] [phone] [address] (Work) [phone] Social History Tobacco Use Types Packs/Day Years [...] How often do you attend zoroastrian or episcopalian services? Patien t refused 12/11/2018 Do you [...] this encounter Miscellaneous Notes Telephone Encounter - Juan Mcmullen V. C.M.ABrigitte - 03/19/2020 8:33 AM AUGER OPERATOR SUBJECTIVE CHIEF COMPLAINT / REASON FOR CALL No chief complaint on file. Information Discussed Attempted to contact patient and left a voicemail with call back number. This is the third attempt to contact this patient. Will wait for a return call. PLAN Disposition/Recommendation: N/A Information/Education: not applicable Caller agreeable to plan of care: no N/A The following references were used: none R OPERATOR Telephone Encounter - EdgarTata calderon - 03/18/2020 9:17 AM CST Images from the original note were not included. Left message for patient to return our call. Does the patient need to speak to nursing? Yes Action needed: Katina Regalado APRN, C.N.P. P [facility] Nurse ? Please notify the patient that her bone mineral density scan shows osteopenia or low bone density. ??As we discussed she should obtain 1200 mg of calcium daily between her diet and a supplement. ??Supplementing with calcium 600 mg plus 400 IU of vitamin-D daily is recommended if she does not consume alot of calcium- rich foods. ??Continue daily weight-bearing activities. ??Thank you R OPERATOR Telephone Encounter - Juan Mcmullen C.MTherese - 03/17/2020 9:09 AM AUGER OPERATOR Images from the original note were not included. Left message for patient to return call to clinic. Does the patient need to speak to nursing? yes Action needed: Inform patient of the following Katina Regalado APRN, C.N.P. P [facility] Nurse ?? Please notify the patient that her bone mineral density scan shows osteopenia or low bone density. ??As we discussed she should obtain 1200 mg of calcium daily between her diet and a supplement. ??Supplementing with calcium 600 mg plus 400 IU of vitamin-D daily is recommended if she does not consume alot of calcium- rich foods. ??Continue daily weight-bearing activities. ??Thank you R OPERATOR documented in this encounter Plan of Treatment Not on filedocumented as of this encounter Visit Diagnoses Not on filedocumented in this encounter Additional Health Concerns Assessment Noted Time PHQ-9 Depression Total Score: 1 03/04/2020 1:48 PM AUGER OPERATOR documented as of this encounter Care Teams Plumber'S Assistant Relationship Specialty Start Date End Date Reagan Campos M.B.B.S., M.D. PCP - General 01/27/[address] [place] [address] [place] [address] documented as of this encounter
--- OUTSIDE RECORDS SUMMARY | 2021-10-26 16:12 | XMS_ITS | Encounter Summary ---
:1960 Author Organization [facility] Address [address] [place] [address] Care Team Providers Name Role Phone Reagan Campos M.D. Primary Care Provider [phone] Reason for Visit Reason Onset Date Comments Med Refill 03/12/2019 Encounter Details Date Type Department Care Team Description 03/12/2019 Refill Department of Family Medicine, Reagan Campos I., Med Refill [facility], in [place], [place] 300 [facility] [address] [place] [address] [place] [address] [phone] Social History Tobacco Use Types Packs/Day Years [...] How often do you attend jew or faith services? Patien t refused 12/11/2018 Do you [...] documented as of this encounter Care Teams Credit Assistant Relationship Specialty Start Date End Date Reagan Campos M.B.B.S., M.D. PCP - General 01/27/[address] [place] [address] [place] [address] documented as of this encounter
--- OUTSIDE RECORDS SUMMARY | 2021-10-26 16:12 | XMS_ITS | Encounter Summary ---
:1960 Author Organization [facility] Address [address] [place] [address] Care Team Providers Name Role Phone Danica England M.D. Primary Care Provider Encounter Details Date Type Department Care Team Description 12/12/2018 Orders Only Department of Family Shelley England M.D. Medicine, [facility], [facility] [place] [address] [place] [address] [place] [address] [phone] Social History Tobacco Use Types Packs/Day Years [...] 12/11/2018 relatives? How often do you attend oriental orthodox or samaritan services? Patien t refused 12/11/2018 Do you belong to any clubs or organizations such as Patient refused 12/11/2018 oriental orthodox groups, unions, fraternal or athletic groups, or [...] documented as of this encounter Care Teams Edger Tailer Relationship Specialty Start Date End Date Danica England M.D. PCP - General 08/10/16 01/26/19 documented as of this encounter
--- OUTSIDE RECORDS SUMMARY | 2021-10-26 16:12 | XMS_ITS | Encounter Summary ---
:1960 Author Organization [facility] Address [address] [place] [address] Care Team Providers Name Role Phone Reagan Campos M.D. Primary Care Provider [phone] Encounter Details Date Type Department Care Team Description 09/16/2019 Orders Only RST PCP [facility] MNT Reagan Campos Screenin g Examination Diabetes Mellitus; Virgilio Rubin M. D. [address] [address] Social History Tobacco Use Types Packs/Day [...] 12/11/2018 relatives? How often do you attend sabianism or muslim services? Patien t refused 12/11/2018 Do you belong to any clubs or organizations such as Patient refused 12/11/2018 sabianism groups, unions, fraternal or athletic groups, or [...] of this encounter Visit Diagnoses Diagnosis Screening Examination Diabetes Mellitus Hypothyroidism documented in this encounter Additional Health Concerns Assessment Noted Time PHQ-9 Depression Total Score: 5 12/12/2018 7:47 AM CDT documented as of this encounter Care Teams Soft Crab Shedder Relationship Specialty Start Date End Date Reagan Campos M.B.B.S., M.D. PCP - General 01/27/19 [facility] [place], [place] [address] documented as of this encounter
--- OUTSIDE RECORDS SUMMARY | 2021-10-26 16:12 | XMS_ITS | Encounter Summary ---
:1960 Author Organization [facility] Address [address] [place] [address] Care Team Providers Name Role Phone Reagan Campos M.D. Primary Care Provider [phone] Reason for Visit Reason Comments Med Refill Encounter Details Date Type Department Care Team Description 12/16/2019 Refill Department of Family Medicine, Reagan Campos I., Med Refill [facility], in [place], [place] 300 [facility] [address] [place] [address] [place] [address] [phone] Social History Tobacco Use Types Packs/Day Years [...] 12/11/2018 relatives? How often do you attend yarsanism or bahai services? Patien t refused 12/11/2018 Do you belong to any clubs or organizations such as Patient refused 12/11/2018 yarsanism groups, unions, fraternal or athletic groups, or [...] documented as of this encounter Care Teams Lead Software Qa Engineer Relationship Specialty Start Date End Date Reagan Campos M.B.B.S., M.D. PCP - General 01/27/[address] [place] [address] [place] [address] documented as of this encounter
--- OUTSIDE RECORDS SUMMARY | 2021-10-26 16:12 | XMS_ITS | Encounter Summary ---
:1960 Author Organization [facility] Address [address] [place] [id number] Care Team Providers Name Role Phone Reagan Campos M.D. Primary Care Provider [phone] Reason for Referral Outpatient (Routine) - Closed Specialty Diagnoses / Procedures Referred By Contact Refer red To Contact Pulmonary Medicine Katina [facility]ado APR[facility]rnot [facility] C.N.P. [address] [place] [address] Referral ID Status Reason Start Date Expiration Date Visits Requ ested Visits Authorized [id number] Closed 03/04/2020 03/04/2021 1 1 EXAMINATION CLERK Outpatient (Routine) - Closed Specialty Diagnoses / Procedures Referred By Contact Refer red To Contact Diagnoses Osteopenia Katina Regalado APRN, C.N.P. [facility] Procedures BMD Bone Density Spine Hips [address] [place] [address] Referral ID Status Reason Start Date Expiration Date Visits Requ ested Visits Authorized [id number] Closed 03/04/2020 03/04/2021 1 1 EXAMINATION CLERK Outpatient (Routine) - Closed Specialty Diagnoses / Procedures Referred By Contact Refer red To Contact Family Medicine Katina Regalado APRN, C.N.P. [facility] [address] [phone] Referral ID Status Reason Start Date Expiration Date Visits Requ ested Visits Authorized [id number] Closed 03/04/2020 03/04/2021 1 1 EXAMINATION CLERK Outpatient (Routine) - Closed Specialty Diagnoses / Procedures Referred By Contact Refer red To Contact Family Medicine Katina Regalado APRN, C.N.P. [address] [address] Referral ID Status Reason Start Date Expiration Date Visits Requ ested Visits Authorized [id number] Closed 03/04/2020 03/04/2021 1 1 EXAMINATION CLERK Reason for Visit Reason Comments Med Management Encounter Details Date Type Department Care Team Description 03/04/2020 Comprehensive Visit Department of Katina Regalado, Osteoa rthritis (Primary Dx); Family Medicine, WAYNE, C.N.P. General Medical Examination Adult; [facility], [facility] Restless Leg Syndrome; in [place], [place] Hypothyroidis m; [place] [address] Hyperlipidemia Mixed; [address] [place] [address] Impaired Fasting Glucose; [place], [place] (Work) Depression Major Recurrent (HCC); [id number] Osteopenia; Overweight Body Mass Index 25-29.9 Adult; Need Vaccine Im munization Influenza; Lump In The Lef t Breast Lower Inner Quadrant Social History Tobacco Use Types Packs/Day Years [...] often do you attend oriental orthodox or shinto services? Patien t refused 12/11/2018 Do you belong to any clubs or organizations such as Patient refused 12/11/2018 oriental orthodox groups, [employer], fraternal or athletic groups, or school groups? [...] Comments Blood Pressure 124/74 03/04/2020 1:49 PM DATA EXAMINATION CLERK Pulse 65 03/04/2020 1:49 PM DATA EXAMINATION CLERK Temperature 36.4 ??C (97.5 ??F) 03/04/2020 1:49 PM DATA EXAMINATION CLERK Respiratory Rate 16 03/04/2020 1:49 PM DATA EXAMINATION CLERK Oxygen Saturation - - Inhaled Oxygen Concentration - - Weight 72.3 kg (159 lb 8 oz) 03/04/2020 1:49 PM DATA EXAMINATION CLERK Height 168.2 cm (5' 6.22) 03/04/2020 1:49 PM DATA EXAMINATION CLERK Body Mass Index 25.57 03/04/2020 1:49 PM DATA EXAMINATION CLERK documented in this encounter Patient Instructions Patient InstructionsKatina Regalado, WAYNE, C.N.P. - 03/04/2020 2:00 PM DATA EXAMINATION CLERK Follow up on breast imaging. Return for lab work. Schedule bone mineral density. 1200 mg calcium per day. Coping Strategies for Depression and Anxiety ??? Take a time-out. Practice yoga, listen to music, meditate, get a massage, or learn relaxation techniques. Stepping back from the problem helps clear your head. ??? Eat well-balanced meals. Do not skip any meals. Do keep healthful, energy- boosting snacks on hand. ??? Limit alcohol and caffeine, which can aggravate anxiety and trigger panic attacks. ??? Get enough sleep. ??? Exercise daily to help you feel good and maintain your health. ??? Take deep breaths. Inhale and exhale slowly. ??? Meditate. Mindfulness, yoga, relaxation. ??? Try an enjoyable activity. Watch a movie, read a book, go for a walk, play a game, take a bath, call a friend/family member to reconnect, play with an animal. ??? Count to 10 slowly. Repeat, and count to 20 if necessary. ??? Do your best. Instead of aiming for perfection, which isn't possible, be proud of however close you get. ??? Accept that you cannot control everything. Put your stress in perspective: Is it really as bad as you think? Welcome humor. A good laugh goes a long way. ??? Maintain a positive attitude. Make an effort to replace negative thoughts with positive ones. ??? Get involved. Volunteer or find another way to be active in your community, which creates a support network and gives you a break from everyday stress. ??? Learn what triggers your anxiety. Is it work, family, school, or something else you can identify? Write in a journal when you???re feeling stressed or anxious, and look for a pattern. ??? Focus on what is going right. ??? Talk to someone. Tell friends and family you???re feeling overwhelmed, and let them know how they can help you. Talk to a physician or therapist for professional help. Fitness Tips: Stay Healthy, Manage Stress ??? 5 X 30: Jog, walk, bike, or dance three to five times a week for 30 minutes. ??? Set small daily goals and aim for daily consistency rather than perfect workouts. It's better towalk every day for 15-20 minutes than to wait until the weekend for a three-hour fitness marathon. Lots of scientific data suggests that frequency is most important. ??? Find forms of exercise that are fun or enjoyable. Extroverted people often like classes and group activities. People who are more introverted often prefer solo pursuits. ??? Distract yourself with an iPod or other portable media player to download audiobooks, podcasts, or music. Many people find it???s more fun to exercise while listening to something they enjoy. ??? Recruit an ???exercise patricia.?? It's often easier to stick to your exercise routine when you have to stay committed to a friend, partner, or colleague. ??? Be patient when you start a new exercise program. Most sedentary people require about four to eight weeks to feel coordinated and sufficiently in shape so that exercise feels easier. (Source www.[employer].com- Anxiety and Depression Association of [place]) Suicide Hotlines ??? National Suicide Prevention Lifeline o 791-401-OTOD (0367) ??? Crisis Text Line o Text BALDEV to 697-338 ??? [place] Domestic Violence Hotline o 958-945-DNUQ (5751) ??? Mental Health Crisis Program- [facility] o 427-691-3551 ??? 911 EXAMINATION CLERK documented in this encounter H&P Notes Katina Regalado APRN, C.N.P. - 03/04/2020 2:00 PM CST SUBJECTIVE CHIEF COMPLAINT/REASON FOR VISIT Chief Complaint Patient presents with ??? Med Management HISTORY OF PRESENT ILLNESS Antonina Harman is a 59 y.o. female who presents to the clinic today an annual wellness exam and medication renewal. She has no concerns today. She states that she lives with her in [place]. Sheis retired and enjoys spending time with her children and grandchildren. She was previously a patient of Dr. England. She was last seen in the clinic in November 2018. Pap Smear: 2018, results normal Mammogram: Mammogram completed today. Abnormal results. See assessment/plan Lipid panel: Last lipid panel November 2018. Diabetic screening: November 2018 Colon screening: Colonoscopy at age 50. DEXA Scan: History of osteopenia. Date of last BMD unknown. Influenza Vaccine: Has declined influenza vaccine in the past. Shingles Vaccine: Needs PHQ9 Score 09/25/2017 12/12/2018 03/04/2020 PHQ-9 Total Score (max 27) 1 5 1 CURRENT MEDICATIONS Current Outpatient Medications Medication Sig Dispense Refill ??? B complex-vitamins (BALANCE B-50) tablet Take 1 tablet by mouth daily. ??? buPROPion (WELLBUTRIN SR) 200 mg 12 hr tablet Take 1 tablet (200 mg total) by mouth 2 (two) times a day. 180 tablet 0 ??? gabapentin (NEURONTIN) 100 mg capsule Take 3 capsules (300 mg total) by mouth at bedtime. 270 capsule 0 ??? levothyroxine (SYNTHROID, LEVOTHROID) 75 mcg tablet Take 1 tablet (75 mcg total) by mouth daily.90 tablet 3 ??? melatonin 5 mg tablet Take by mouth. ??? pravastatin (PRAVACHOL) 20 mg tablet Take 1 tablet (20 mg total) by mouth at bedtime. A higher dose of medication would be advised 90 tablet 3 ??? sertraline (ZOLOFT) 100 mg tablet TAKE 2 TABLETS(200 MG) BY MOUTH DAILY 180 tablet 3 No current facility-administered medications for this visit. ALLERGIES/CONTRAINDICATIONS Allergies Allergen Reactions ??? Codeine Other (see comments) Mood changes and several other symptoms. REVIEW OF SYSTEMS Eyes: Negative for double vision and sudden loss of vision. Positive for slow decline in vision. No recent eye exam. Musculoskeletal: Positive for arthralgias and pain or stiffness in the joints. Negative for back pain, joint swelling and muscle pain/stiffness. Psychiatric/Behavioral: Positive for feeling nervous, anxious, or on edge in past two weeks. Negative for sleep disturbance, little interest or pleasure in doing things over past two weeks, feeling down, depressed, or hopeless over past two weeks and not being able to stop or control worrying over past two weeks. The following systems were negative: Constitutional, CV, Respiratory, GI, Neuro MEDICAL HISTORY Past Medical History: Diagnosis Date ??? Depression Major Recurrent (HCC) ??? Hyperlipidemia Mixed ??? Nicotine Dependence Cigarettes In Remission Quit cigarettes 2013 quit E cigarettes 2014 ??? Osteopenia ??? Overweight Body Mass Index 25-29.9 Adult ??? Periodontal Disease Resolved with dentures SURGICAL HISTORY Past Surgical History: Procedure Laterality Date ??? BREAST BIOPSY Left 2009ish ??? KNEE ARTHROSCOPY Left 1976 Residual pain SOCIAL HISTORY Social History Socioeconomic History ??? Marital status: Spouse name: None ??? Number of children: None ??? Years of education: None ??? Highest education level: 12th grade Occupational History ??? None Social Needs ??? Financial resource strain: None ??? Food insecurity Worry: None Inability: None ??? Transportation needs Medical: No Non-medical: No Tobacco Use ??? Smoking status: Former Smoker Packs/day: 0.50 Types: Cigarettes Quit date: 2011 Years since quittin.0 ??? Smokeless tobacco: Never Used ??? Tobacco comment: Estimates 40 years of smoking history Substance and Sexual Activity ??? Alcohol use: No Frequency: Never ??? Drug use: No ??? Sexual activity: Yes Partners: Male Comment: No history of STDs or abnormal pap smears. Lifestyle ??? Physical activity Days per week: 5 days Minutes per session: 20 min ??? Stress: Only a little Relationships ??? Social connections Talks on phone: Patient refused Gets together: Once a week Attends shinto service: Patient refused Active member of club or organization: Patient refused Attends meetings of clubs or organizations: Patient refused Relationship status: ??? Intimate partner violence Fear of current or ex partner: No Emotionally abused: No Physically abused: No Forced sexual activity: No Other Topics Concern ??? None Social History Narrative ??? None FAMILY HISTORY Family History Problem Relation Age of Onset ??? Schizophrenia Mother ??? Diabetes mellitus - adult onset Mother ??? Hypothyroidism Sister ??? Hypothyroidism Maternal Grandmother ??? Menieres disease Maternal Grandmother ??? Lung cancer Maternal Grandfather Smoker ??? No Known Problems Paternal Grandmother ??? Cancer Paternal Grandfather ??? Bipolar Aunt ??? Depression Daughter ??? Breast cancer Daughter ??? No Known Problems Daughter ??? Depression Daughter ??? Depression Daughter OBJECTIVE VITAL SIGNS BP 124/74 Pulse 65 Temp 36.4 ??C (Temporal) Resp 16 Ht 168.2 cm Wt 72.3 kg BMI 25.57 kg/m?? PHYSICAL EXAMINATION General: Patient is a pleasant, cooperative 59 y.o. female. She is alert, oriented x3, well-groomed,and reliable historian. She is in no acute distress. Skin: Color pink, warm, dry, and intact. No rashes or lesions noted. HEENT: Head: atraumatic, normocephalic, midline, and without tremor. Eyes: Sclerae are white, conjunctivae clear, pupils are equal round and reactive to light. Extraocular movements are intact. Red reflex intact bilateral. Ears: External auditory canals are clear, tympanic membranes intact and pearly frias with landmarks visible, hearing grossly intact. Mouth: oral mucosa and gums pink and moist without lesions present, posterior pharynx is pink without exudate or swelling, teeth are in good repair. Neck: Trachea is midline, no lymphadenopathy, thyroid smooth and non-tender, no thyromegaly. No carotid bruit. Cardiovascular: Heart rate and rhythm regular. S1, S2 heard with no abnormal heart sounds. No edema.Radial and pedal pulses 2+. Capillary refill brisk. Respiratory: Respirations regular and unlabored. Lungs are clear to auscultation bilaterally. Abdomen: Abdomen is soft, symmetric. Bowel sounds are active in all 4 quadrants. No tenderness, masses, or organomegaly noted on palpation. Breast: Breasts appear symmetric. No retractions or skin dimpling. Palpable mass on the left breast.Mass is the width of a finger tip and located below the areola on left breast, 7-8 o'clock position.No nipple discharge. No axillary lymphadenopathy. Extremities: Kennedy and warm. No edema. Neuro: Cranial nerves II through XII are grossly intact. Gait is smooth and coordinated. Strength and sensation are grossly normal in all 4 extremities. Patellar reflex 2+ bilateral. Psychosocial: Speech clear and fluid. Thought content logical and intact. DIAGNOSTICS: Lipid panel BMP CBC Thyroid cascade BMD Mammogram: Result Date: 03/04/2020 Impression: Incomplete. Need additional imaging evaluation. RECOMMENDATION: Additional Imaging Diagnostic imaging and breast ultrasound evaluation. ASSESSMENT: BI-RADS: 0 - Incomplete: Needs AdditionalImaging Evaluation. ASSESSMENT / PLAN #1 General Medical Examination Adult Pap Smear: due 2022 Mammogram: Mammogram completed today. Abnormal results. See below Lipid panel: Pending Diabetic screening: Pending Colon screening: Colonoscopy due at age 60 DEXA Scan: BMD ordered today Influenza Vaccine: Will receive today Shingles Vaccine: Will check with her insurance regarding coverage. Daily healthy habits were encouraged including: A diet rich with fruits and vegetables, 150 minutes a week of moderate aerobic intensity activity, avoiding tobacco, limited alcohol intake, and stress management. #3 Lump in Left Breast Lower Inner Quadrant Patient has a history of dense breasts. She reports she had an abnormal mammogram many years ago andhad a follow up ultrasound at an outside facility. She has since had normal mammograms. She performsself breast exams. She has been monitoring a lump on the left breast below the areola that she has had for quite some time. Her screening mammogram was abnormal today. She will follow up with the radiologists recommendations. Her daughter had breast cancer last year. #2 Osteoarthritis Continue to use Tylenol for pain. Continue to stay active with daily physical activity. #3 Restless Leg Syndrome Symptoms are well controlled with gabapentin. Continue current dose. #4 Hypothyroidism She has not had any labs since 2019. She is currently on 75 mcg of levothyroxine. She will return for annual labs that include a thyroid cascade. #5 Hyperlipidemia Mixed Current taking pravastatin 20 mg. She will return for fasting labs with a lipid panel. Encouraged a low cholesterol/low fat diet. #6 Impaired Fasting Glucose She has had an elevated fasting glucose in the past. A BMP will be drawn. She is following a healthydiet, rich in fruits, vegetables, and whole grains. Encouraged daily physical activity. #7 Depression Major Recurrent (HCC) Her symptoms are well controlled on Wellbutrin SR 200 mg twice daily and sertraline 200 mg daily. She has adequate social support. Discussed the importance of healthy diet and exercise for overall well-being. She was provided with a hand out on nonpharmacological strategies for depression. #8 Osteopenia Patient is due for a bone mineral density scan. She is currently not taking any medication for osteopenia. Recommended 1200 mg of calcium daily. She consumes very little for dairy products. We discussed alternative options for calcium intake. She will start an OTC calcium supplement. She performs 30 minutes of weight bearing activity most days. #9 Overweight Body Mass Index 25-29.9 Adult Recommend at least 30 minutes of aerobic exercise most days of the week. She was commended on her healthy diet and daily physical activity. #10 Need Vaccine Immunization Influenza She is requesting an influenza vaccine today. She was educated and the benefits and risks of this immunization. She will return to the clinic in one year for an annual physical or sooner as needed. - Family Medicine office visit (clinic); Future; Expected date: 07/02/2020 All questions were answered. Patient verbalizing understanding and is in agreement with the above outlined plan. EXAMINATION CLERK documented in this encounter Plan of Treatment Scheduled Referrals Name Type Priority Associated Diagnoses Order S omar Family Medicine Outpatient Referral Routine Expec hannah: office visit 07/02/2020 (clinic) (Approximate), Expires: 03/04/2023 Family Medicine Outpatient Referral Routine Expec hannah: office visit 03/04/2021 (clinic) (Approximate), Expires: 03/04/2023 PUL Lung Cancer Outpatient Referral Routine Expec hannah: screening program 03/04/2020 referral - initial (Approxim ate), and annual Expires: 03/04/2023 documented as of this encounter Results BMD Bone Density Spine Hips (03/16/2020 1:09 PM DATA EXAMINATION CLERK) Anatomical Region Laterality Modality Hip, Lumbar Spine, Nuclear Medicine RST LOS, N/A Radiographic Imaging Musculoskeletal ARZ LOS, Muskuloskeletal FLA LOS Specimen (Source) Anatomical Collection Method Collection Time Re ceived Time Location / / Volume Laterality 03/16/2020 2:33 PM DATA EXAMINATION CLERK Impressions 03/16/2020 2:35 PM DATA EXAMINATION CLERK Low bone density (osteopenia). Lumbar spine Narrative 03/16/2020 2:35 PM DATA EXAMINATION CLERK EXAM: BMD BONE DENSITY SPINE HIPS COMPARISON: None Director On Air/Model: [employer] FINDINGS: ?? LUMBAR SPINE Level: L1-L4 included unless otherwise i ndicated. Lumbar BMD: 0.950 gm/cm2 T-score: -2.0 BMD % change: N/A% Significance: N/A. LUMBAR TBS (equivalent levels): TBS: 1.256 gm/cm2 TBS T-score: -2.3 HIP(S) Lowest femoral BMD: 0.760 gm/cm 2 Lowest T-score: -2.0 Location, lowest T-score: Right femoral neck BMD % change: N/A% Significance: N/A. TBS adjusted FRAX 10 year probability of major osteoporoti c fracture 17.0 % 10 year probability of hip fracture ??2. 3 % FRAX scores: Not clinically validated fo r patients with history of therapy with bisphosphonates in the past two years, c alcitonin in the last year, PTH in the last year, Denosumab in the last year. ? ?Calcium and vitamin D do NOT constitute treatment' in this context. ??All treat ment decisions require clinical judgement and consideration of individual patient factors which may not be captured in the FRAX model and the risk of fracture may be over- or under-estimated by FRAX. Treatment recommended for: Patients with hip or vertebral fracture (clinical or morphometric). Patients with osteoporosis at the spine and/or hip as defined by T-score <= -2.5. Postmenopausal women or men age 50 and o lder with low bone mass (T-score -1 to -2.5, osteopenia) at the femoral neck, t otal hip, or spine and 10 year hip fracture probability >3% or a 10 year al l major osteoporosis related fracture probability of >20% based on the [place] apted WHO absolute risk model. Exclude secondary causes of low bone den sity in the appropriate clinical setting. Follow-up exams should be performed at n o sooner than two-year intervals. Direct comparison can only be performed on exams performed at the same facility. Normal TBS > 1.310, associated with a lo w risk for fracture Partially degraded TBS 1.310 - 1.230, as sociated with a medium risk for fracture Degraded < 1.230, associated with a high risk for fracture World Health Organization T-score criter ia: 0 to -1.0 ?? Normal range < -1.0 to > -2.5 ?? Low bone density (os teopenia) -2.5 or less ?? Osteoporosis Procedure Note Deo Streeter M.D. - 03/16/2020For matting of this note might be different from the original. EXAM: BMD BONE DENSITY SPINE HIPS COMPARISON: None Director On Air/Model: [employer] FINDINGS: LUMBAR SPINE Level: L1-L4 included unless otherwise i ndicated. Lumbar BMD: 0.950 gm/cm2 T-score: -2.0 BMD % change: N/A% Significance: N/A. LUMBAR TBS (equivalent levels): TBS: 1.256 gm/cm2 TBS T-score: -2.3 HIP(S) Lowest femoral BMD: 0.760 gm/cm 2 Lowest T-score: -2.0 Location, lowest T-score: Right femoral neck BMD % change: N/A% Significance: N/A. TBS adjusted FRAX 10 year probability of major osteoporoti c fracture 17.0 % 10 year probability of hip fracture 2.3 % FRAX scores: Not clinically validated fo r patients with history of therapy with bisphosphonates in the past two years, c alcitonin in the last year, PTH in the last year, Denosumab in the last year. C alcium and vitamin D do NOT constitute treatment' in this context. All treatme nt decisions require clinical judgement and consideration of individual patient factors which may not be captured in the FRAX model and the risk of fracture may be over- or under-estimated by FRAX. Treatment recommended for: Patients with hip or vertebral fracture (clinical or morphometric). Patients with osteoporosis at the spine and/or hip as defined by T-score <= -2.5. Postmenopausal women or men age 50 and o lder with low bone mass (T-score -1 to -2.5, osteopenia) at the femoral neck, t otal hip, or spine and 10 year hip fracture probability >3% or a 10 year al l major osteoporosis related fracture probability of >20% based on the [place] ad apted WHO absolute risk model. Exclude secondary causes of low bone den sity in the appropriate clinical setting. Follow-up exams should be performed at n o sooner than two-year intervals. Direct comparison can only be performed on exams performed at the same facility. Normal TBS > 1.310, associated with a lo w risk for fracture Partially degraded TBS 1.310 - 1.230, as sociated with a medium risk for fracture Degraded < 1.230, associated with a high risk for fracture World Health Organization T-score criter ia: 0 to -1.0 Normal range < -1.0 to > -2.5 Low bone density (osteo penia) -2.5 or less Osteoporosis IMPRESSION: Low bone density (osteopenia). Lumbar sp ine Katina Regalado APRN, C.N.P. IMG DXA PROCEDURES Thyroid Function [place] (03/09/2020 9:46 AM DATA EXAMINATION CLERK) athologist Signature TSH, Sensitive 1.3 0.3 - 4.2 03/09/2020 [place] mIU/L 2:26 PM DATA EXAMINATION CLERK Specimen Anatomical Collection Method Collection Time Receive d Time (Source) Location / / Volume Laterality Blood (Blood, 03/09/2020 9:46 AM 03/09/19 21 1:25 Venous) DATA EXAMINATION CLERK PM DATA EXAMINATION CLERK Katina Regalado APRN, C.N.P. LAB BLOOD ADD-ON Performing Organization Address City/State/ZIP Code Phon e Number [facility]- [address] [place] [address] [place] [address] System in [place] [address] CBC with Differential, Blood (03/09/2020 9:46 AM DATA EXAMINATION CLERK) athologist Signature Hemoglobin 13.0 11.6 - 03/09/2020 FB60 15.0 g/dL 10:07 AM DATA EXAMINATION CLERK Hematocrit 39.8 35.5 - 03/09/2020 FB60 44.9 % 10:07 AM DATA EXAMINATION CLERK Erythrocytes 4.34 3.92 - 03/09/2020 FB60 5.13 10:07 AM DATA EXAMINATION CLERK x10(12)/L MCV 91.7 78.2 - 03/09/2020 FB60 97.9 fL 10:07 AM DATA EXAMINATION CLERK RBC Distrib Width 13.6 12.2 - 03/09/2020 FB60 16.1 % 10:07 AM DATA EXAMINATION CLERK Platelet Count 217 157 - 371 03/09/2020 FB60 x10(9)/L 10:07 AM DATA EXAMINATION CLERK Leukocytes 4.0 3.4 - 9.6 03/09/2020 FB60 x10(9)/L 10:07 AM DATA EXAMINATION CLERK Neutrophils 2.08 1.56 - 03/09/2020 FB60 6.45 10:07 AM DATA EXAMINATION CLERK x10(9)/L Lymphocytes 1.55 0.95 - 03/09/2020 FB60 3.07 10:07 AM DATA EXAMINATION CLERK x10(9)/L Monocytes 0.33 0.26 - 03/09/2020 FB60 0.81 10:07 AM DATA EXAMINATION CLERK x10(9)/L Eosinophils 0.04 0.03 - 03/09/2020 FB60 0.48 10:07 AM DATA EXAMINATION CLERK x10(9)/L Basophils 0.03 0.01 - 03/09/2020 FB60 0.08 10:07 AM DATA EXAMINATION CLERK x10(9)/L Specimen Anatomical Collection Method Collection Time Receive d Time (Source) Location / / Volume Laterality Blood (Blood, 03/09/2020 9:46 AM 03/09/19 9:46 Venous) DATA EXAMINATION CLERK AM DATA EXAMINATION CLERK Katina Regalado APRN, C.N.P. LAB BLOOD ADD-ON Performing Organization Address City/State/ZIP Code Phon e Number [facility]- [address] [place] [address] [facility] [address] [place] [address] System in [place] [address] (ABNORMAL) Basic Metabolic Panel (03/09/2020 9:46 AM DATA EXAMINATION CLERK) P athologist Signature Potassium, P 4.2 3.6 - 5.2 03/09/2020 [place] mmol/L 2:18 PM DATA EXAMINATION CLERK Sodium, P 142 135 - 145 03/09/2020 [place] mmol/L 2:18 PM DATA EXAMINATION CLERK Chloride, P 104 98 - 107 03/09/2020 [place] mmol/L 2:18 PM DATA EXAMINATION CLERK Bicarbonate, P 32 (H) 22 - 29 03/09/2020 [place] mmol/L 2:18 PM DATA EXAMINATION CLERK Anion Gap, P 6 (L) 7 - 15 03/09/2020 [place] 2:18 PM DATA EXAMINATION CLERK BUN (Blood Urea 11 6 - 21 03/09/2020 OW[place] Nitrogen), P mg/dL 2:18 PM DATA EXAMINATION CLERK Creatinine 0.93 0.59 - 03/09/2020 [place] 1.04 mg/dL 2:18 PM DATA EXAMINATION CLERK eGFR-Black/Afri 78 >=60 03/09/2020 OW[facility] can Faroese mL/min/BSA 2:18 PM DATA EXAMINATION CLERK Comment: ----ADDITIONAL INFORMATION---- Estimated GFR calculated using the 2009 CKD_EPI creatinine equation. eGFR Non-Black/ 67 >=60 mL/min/BSA 2:18 PM DATA EXAMINATION CLERK [place] Comment: ----ADDITIONAL INFORMATION---- Estimated GFR calculated using the 2009 CKD_EPI creatinine equation. Calcium, Total, P 9.5 8.6 - 10.0 mg/dL 03/09/2020 2:18 PM DATA EXAMINATION CLERK [place] Glucose, P 111 70 - 140 mg/dL 03/09/2020 2:18 PM DATA EXAMINATION CLERK O EULALIA Specimen Anatomical Collection Method Collection Time Receive d Time (Source) Location / / Volume Laterality Blood (Blood, 03/09/2020 9:46 AM 03/09/19 1:25 Venous) DATA EXAMINATION CLERK PM DATA EXAMINATION CLERK Javier Estrada APRNNBrigittePBrigitte LAB BLOOD ADD-ON Performing Organization Address City/State/ZIP Code Phon e Number [facility]- [address] [place] [address] [place] [address] System in [place] [address] (ABNORMAL) Lipid Panel (03/09/2020 9:46 AM DATA EXAMINATION CLERK) P athologist Signature Cholesterol, 291 (H) mg/dL 03/09/2020 OW[facility] Total 2:18 PM DATA EXAMINATION CLERK Comment: ----REFERENCE VALUE---- Desirable: < 200 Borderline high: 200 - 239 High: > or = 240 Triglycerides 183 (H) mg/dL 03/09/2020 2:18 PM DATA EXAMINATION CLERK OWA T Comment: ----REFERENCE VALUE---- Normal: <150 Borderline high: 150-199 High: 200-499 Very high: > or =500 Cholesterol, HDL 50 >=50 mg/dL 03/09/2020 2:18 PM DATA EXAMINATION CLERK OW[place] Calculated LDL 204 (H) mg/dL 03/09/2020 2:18 PM DATA EXAMINATION CLERK OW AT Comment: The markedly elevated LDL level is sugge stive of a genetic condition such as familial hypercholesterolemia (FH) or familial defective apolipoprotei n B-100 (FDB). Molecular genetic testing for FH and FDB is available through [facility]: Hyperc holesterolemia Gene Panel (test FHRGP). Acquired (non-geneti c) causes of markedly increased LDL cholesterol include choles tatic liver disease due to the presence of LpX. If a genetic form of hypercholesterolemia is suspected, famil y studies including biochemical testing for lipids (total cholesterol, triglycerides, LDL cholesterol and HDL c holesterol) are recommended. ??Please contact the veronica oconnor at or the on-line test claire ramos at [employer] for informati on about how to order these tests or to speak with a [facility] counselor. Further interpretation would require cli nical information. ----REFERENCE VALUE---- Desirable: <100 Above Desirable: 100-129 Borderline high: 130-159 High: 160-189 Very high: > or =190 Cholesterol, Non-HDL, Calculated 241 (H) mg/dL 021 2:18 PM DATA EXAMINATION CLERK [place] Comment: ----REFERENCE VALUE---- Desirable: <130 Above Desirable: 130-159 Borderline high: 160-189 High: 190-219 Very high: > or =220 Specimen Anatomical Collection Method Collection Time Receive d Time (Source) Location / / Volume Laterality Blood (Blood, 03/09/2020 9:46 AM 03/09/19 21 1:25 Venous) DATA EXAMINATION CLERK PM DATA EXAMINATION CLERK Katina Regalado APRN, C.N.P. LAB BLOOD ADD-ON Performing Organization Address City/State/ZIP Code Phon e Number [facility]- [address] [place] [address] [place] [address] System in [place] [address] documented in this encounter Visit Diagnoses Diagnosis Osteoarthritis - Primary General Medical Examination Adult Restless Leg Syndrome Hypothyroidism Hyperlipidemia Mixed Impaired Fasting Glucose Depression Major Recurrent (HCC) Osteopenia Overweight Body Mass Index 25-29.9 Adult Need Vaccine Immunization Influenza Lump In The Left Breast Lower Inner Quad rant Osteopenia documented in this encounter Additional Health Concerns Assessment Noted Time PHQ-9 Depression Total Score: 1 03/04/2020 1:48 PM DATA EXAMINATION CLERK documented as of this encounter Care Teams Manager Home Improvement Relationship Specialty Start Date End Date Reagan Campos M.B.B.S., M.D. PCP - General 01/27/[address] [place] [address] [place] [address] documented as of this encounter
--- OUTSIDE RECORDS SUMMARY | 2021-10-26 16:12 | XMS_ITS | Encounter Summary ---
:1960 Author Organization [facility] Address [address] [place] [address] Care Team Providers Name Role Phone Reagan Campos M.D. Primary Care Provider [phone] Reason for Visit Reason Comments Med Refill Encounter Details Date Type Department Care Team Description 05/15/2020 Refill Department of Family Medicine, Homar Hurt M.D. Med Refill [facility], in [address] [address] Social History Tobacco Use Types Packs/Day Years [...] often do you attend roman catholic or taoism services? Patien t refused 12/11/2018 Do you [...] this encounter Miscellaneous Notes Telephone Encounter - Oksana Moran - 05/17/2020 1:28 PM CDT Rx was sent 03/04/2020, # 180 with refill documented in this encounter Plan of Treatment Not on filedocumented as of this encounter Visit Diagnoses Not on filedocumented in this encounter Additional Health Concerns Assessment Noted Time PHQ-9 Depression Total Score: 1 03/04/2020 1:48 PM OFFICE SUPPORT ASSOCIATE documented as of this encounter Care Teams Volleyball Referee Relationship Specialty Start Date End Date Reagan Campos M.B.B.S., M.D. PCP - General 01/27/[address] [place] [phone] documented as of this encounter
--- OUTSIDE RECORDS SUMMARY | 2021-10-26 16:12 | XMS_ITS | Encounter Summary ---
:1960 Author Organization [facility] Address [address] [place] [address] Care Team Providers Name Role Phone Danica England M.D. Primary Care Provider Reason for Visit Reason Comments Med Refill Encounter Details Date Type Department Care Team Description 12/08/2018 Refill Department of Family Medicine, Danica ndiaye M.D. Med Refill [facility], in [facility] [place] [address] [place] [address] [place] [address] [phone] Social History Tobacco Use Types Packs/Day Years [...] 12/11/2018 relatives? How often do you attend orthodoxy or uatsdin services? Patien t refused 12/11/2018 Do you belong to any clubs or organizations such as Patient refused 12/11/2018 orthodoxy groups, unions, fraternal or athletic groups, or [...] documented as of this encounter Care Teams Admin Asst Relationship Specialty Start Date End Date Danica England M.D. PCP - General 08/10/16 01/26/19 documented as of this encounter
--- OUTSIDE RECORDS SUMMARY | 2021-10-26 16:12 | XMS_ITS | Encounter Summary ---
:1960 Author Organization [facility] Address [address] [place] [address] Care Team Providers Name Role Phone Reagan Campos M.D. Primary Care Provider [phone] Encounter Details Date Type Department Care Team Description 03/10/2020 Orders Only Department of Family Katina Regalado, Mariial ipidemia (Primary Medicine, [place] COMMUNITY SERVICE DIRECTOR, C.N.P. Dx) Clinic, in [address] [address] [place], [place] [phone] [address] (Work) [phone] Social History Tobacco Use Types Packs/Day Years [...] 12/11/2018 relatives? How often do you attend holiness or muslim services? Patien t refused 12/11/2018 Do you belong to any clubs or organizations such as Patient refused 12/11/2018 holiness groups, unions, fraternal or athletic groups, or [...] of this encounter Plan of Treatment Scheduled Orders Name Type Priority Associated Diagnoses Order S chedule Lipid Panel Lab Routine Hyperlipidemia Expected: 02/2020 (Approximate), Expires: 2023 documented as of this encounter Visit Diagnoses Diagnosis Hyperlipidemia - Primary documented in this encounter Additional Health Concerns Assessment Noted Time PHQ-9 Depression Total Score: 1 03/04/2020 1:48 PM ELEMENT WINDING MACHINE TENDER documented as of this encounter Care Teams Forensic Examiner Relationship Specialty Start Date End Date Reagan Campos M.B.B.S., M.D. PCP - General 01/27/[address] [place] [address] [place] [address] documented as of this encounter
--- OUTSIDE RECORDS SUMMARY | 2021-10-26 16:12 | XMS_ITS | Encounter Summary ---
:1960 Author Organization [facility] Address [address] [place] [address] Care Team Providers Name Role Phone Danica England M.D. Primary Care Provider Encounter Details Date Type Department Care Team Description 12/12/2018 Hospital Encounter Department of Danica England Major Recurrent (HCC); Laboratory Medicine Eva Faria Impaired Fasting Glucose; [place] [address] Osteoarthritis; [place], [place] Restless Leg Syndrome; [address] [address] Hyperlipidemia Mixed; [place], [place] [phone] Overweight Bod y Mass Index 25-29.9 Adult; [address] (Work) Hypothyroidism [phone] Social History Tobacco Use Types Packs/Day Years [...] often do you attend roman catholic or sabianist services? Patien t refused 12/11/2018 Do you [...] Name Priority Date/Time Associated Diagnosis Comme nts LIPID PANEL, S Routine 12/12/2018 8:27 Depression Major Result s for this AM CDT Recurrent (HCC) procedure are in Hyperlipidemia Mixed the res ults section. CBC WITH DIFFERENTIAL, Routine 12/12/2018 8:27 Depression Avril r Results for this B AM CDT Recurrent (HCC) procedure are in Overweight Body Mass the res ults Index 25-29.9 Ad ult section. Osteoarthritis Restless Leg Syndrome ASPARTATE Routine 12/12/2018 8:27 Depression Major Results for this AMINOTRANSFERASE (AST), AM CDT Recurren t (HCC) procedure are in S/P Hyperlipidemia M ixed the results Osteoarthritis section. Restless Leg Syndrome THYROID-STIMULATING Routine 12/12/2018 8:27 Hypothyroidism Res ults for this HORMONE-SENSITIVE AM CDT procedure are in (S-TSH) the results section. BASIC METABOLIC PANEL, Routine 12/12/2018 8:27 Depression Avril r Results for this S/P AM CDT Recurrent (HCC) procedure are in Impaired Fasting the results Glucose section. Osteoarthritis Restless Leg Syndrome documented in this encounter Results S-TSH (Thyroid-Stimulating Hormone - Sensitive) (12/12/2018 8:27 AM CDT) P athologist Signature TSH, Sensitive 1.5 0.3 - 4.2 12/12/2018 OW[place] mIU/L 11:11 AM CDT Comment: Biotin has been identified by the iraj felix as a potential interfering substance. ??Higher concentr ations of biotin may be found in multivitamins, hair/nail supple ments, and workout supplements. ??If the result does not [facility] clinical observations, repeat testing after patient refrains fr om the use of supplements for at least 12 hours. Specimen Anatomical Collection Method Collection Time Receive d Time (Source) Location / / Volume Laterality Blood (Blood, 12/12/2018 8:27 AM 12/13/19 19 Venous) CDT 10:41 AM CDT Danica England M.D. LAB BLOOD ADD-ON Performing Organization Address City/State/ZIP Code Phon e Number [facility]- [address] [place] [address] [place] [address] System in [place] [address] CBC with Differential, Blood (12/12/2018 8:27 AM CDT) P athologist Signature Hemoglobin 13.2 11.6 - 12/12/2018 FB60 15.0 g/dL 9:07 AM CDT Hematocrit 40.7 35.5 - 12/12/2018 FB60 44.9 % 9:07 AM CDT Erythrocytes 4.44 3.92 - 12/12/2018 FB60 5.13 9:07 AM CDT x10(12)/L MCV 91.7 78.2 - 12/12/2018 FB60 97.9 fL 9:07 AM CDT RBC Distrib Width 13.4 12.2 - 12/12/2018 FB60 16.1 % 9:07 AM CDT Platelet Count 211 157 - 371 12/12/2018 FB60 x10(9)/L 9:07 AM CDT Leukocytes 5.4 3.4 - 9.6 12/12/2018 FB60 x10(9)/L 9:07 AM CDT Neutrophils 2.55 1.56 - 12/12/2018 FB60 6.45 9:07 AM CDT x10(9)/L Lymphocytes 2.39 0.95 - 12/12/2018 FB60 3.07 9:07 AM CDT x10(9)/L Monocytes 0.41 0.26 - 12/12/2018 FB60 0.81 9:07 AM CDT x10(9)/L Eosinophils 0.05 0.03 - 12/12/2018 FB60 0.48 9:07 AM CDT x10(9)/L Basophils 0.01 0.01 - 12/12/2018 FB60 0.08 9:07 AM CDT x10(9)/L Specimen Anatomical Collection Method Collection Time Receive d Time (Source) Location / / Volume Laterality Blood (Blood, 12/12/2018 8:27 AM 12/13/19 19 8:28 Venous) CDT AM CDT Danica England M.D. LAB BLOOD ADD-ON Performing Organization Address City/State/ZIP Code Phon e Number [facility]- [address] [place] [address] [facility] [address] [place] [address] System in [place] [address] (ABNORMAL) Lipid Panel (12/12/2018 8:27 AM CDT) P athologist Signature Cholesterol, 289 (H) mg/dL 12/12/2018 OWAT Total 11:38 AM CDT Comment: ----REFERENCE VALUE---- Desirable: < 200 Borderline high: 200 - 239 High: > or = 240 Triglycerides 224 (H) mg/dL 12/12/2018 11:38 AM CDT OW AT Comment: ----REFERENCE VALUE---- Normal: <150 Borderline high: 150-199 High: 200-499 Very high: > or =500 Cholesterol, HDL, S 55 >=50 mg/dL 12/12/2018 11:38 AM CDT OWAT Calculated LDL 189 (H) mg/dL 12/12/2018 11:38 AM CDT O EULALIA Comment: The markedly elevated LDL level is sugge stive of a genetic condition such as familial hypercholesterolemia (FH) or familial defective apolipoprotei n B-100 (FDB). Molecular genetic testing for FH and FDB is available through [facility]: FH/ADH Genetic Reflex Panel (test ADHP). Acquired (non-genetic ) causes of markedly increased LDL cholesterol include choles tatic liver disease due to the presence of LpX. If a genetic form of hypercholesterolemia is suspected, famil y studies including biochemical testing for lipids (total cholesterol, triglycerides, LDL cholesterol and HDL c holesterol) are recommended. ??Please contact the veronica oconnor at or the on-line test claire ramos at [employer] for informati on about how to order these tests or to speak with a [facility] counselor. Further interpretation would require i nical information. ----REFERENCE VALUE---- Desirable: <100 Above Desirable: 100-129 Borderline high: 130-159 High: 160-189 Very high: > or =190 Cholesterol, Non-HDL, Calculated 234 (H) mg/dL 019 11:38 AM CDT OWAT Comment: ----REFERENCE VALUE---- Desirable: <130 Above Desirable: 130-159 Borderline high: 160-189 High: 190-219 Very high: > or =220 Specimen Anatomical Collection Method Collection Time Receive d Time (Source) Location / / Volume Laterality Blood (Blood, 12/12/2018 8:27 AM 12/13/19 Venous) CDT 10:41 AM CDT Danica England M.D. LAB BLOOD ADD-ON Performing Organization Address City/State/ZIP Code Phon e Number [facility]- [address] [place] [address] [place] [address] System in [place] [address] AST (Aspartate Aminotransferase) (12/12/2018 8:27 AM CDT) Patholo gist Method Time Signature Aspartate 37 8 - 43 12/12/2018 [place] Aminotransferase U/L 11:38 AM CDT (AST), S Specimen Anatomical Collection Method Collection Time Receive d Time (Source) Location / / Volume Laterality Blood (Blood, 12/12/2018 8:27 AM 12/13/19 Venous) CDT 10:41 AM CDT Danica England M.D. LAB BLOOD ADD-ON Performing Organization Address City/[facility]/ZIP Code Phon e Number [facility]- [address] [place] [facility] [place] [address] [place] [address] System in [place] [address] (ABNORMAL) BMP (Basic Metabolic Panel) (12/12/2018 8:27 AM CDT) P athologist Signature Potassium, S 4.4 3.6 - 5.2 12/12/2018 OW[place] mmol/L 11:38 AM CDT Sodium, S 145 135 - 145 12/12/2018 [place] mmol/L 11:38 AM CDT Chloride, S 104 98 - 107 12/12/2018 [place] mmol/L 11:38 AM CDT Bicarbonate, S 31 (H) 22 - 29 12/12/2018 [place] mmol/L 11:38 AM CDT Anion Gap 10 7 - 15 12/12/2018 [place] 11:38 AM CDT BUN (Blood Urea 14 6 - 21 12/12/2018 [place] Nitrogen), S mg/dL 11:38 AM CDT Creatinine 0.83 0.59 - 12/12/2018 [place] 1.04 mg/dL 11:38 AM CDT eGFR-Non 78 >=60 12/12/2018 OW[place] Black/ mL/min/BSA 11:38 AM CDT [place] Comment: ----ADDITIONAL INFORMATION---- Estimated GFR calculated using the 2009 CKD_EPI creatinine equation. eGFR-Black/ 90 >=60 mL/min/BSA 2018 11:38 AM CDT OWAT Comment: ----ADDITIONAL INFORMATION---- Estimated GFR calculated using the 2009 CKD_EPI creatinine equation. Calcium, Total, S 9.7 8.6 - 10.0 mg/dL 12/12/2018 11:3 8 AM CDT OW[place] Glucose, S 113 70 - 140 mg/dL 12/12/2018 11:38 AM CDT OW[place] Specimen Anatomical Collection Method Collection Time Receive d Time (Source) Location / / Volume Laterality Blood (Blood, 12/12/2018 8:27 AM 12/13/19 19 Venous) CDT 10:41 AM CDT Danica England M.D. LAB BLOOD ADD-ON Performing Organization Address City/State/ZIP Code Phon e Number [facility]- [address] [place] [address] [place] [address] System in [place] [address] [facility] documented in this encounter Visit Diagnoses Diagnosis Depression Major Recurrent (HCC) Impaired Fasting Glucose Osteoarthritis Restless Leg Syndrome Hyperlipidemia Mixed Overweight Body Mass Index 25-29.9 Adult Hypothyroidism documented in this encounter Additional Health Concerns Assessment Noted Time PHQ-9 Depression Total Score: 5 12/12/2018 7:47 AM CDT documented as of this encounter Care Teams Professional Architect Relationship Specialty Start Date End Date Danica England M.D. PCP - General 08/10/16 01/26/19 documented as of this encounter
--- OUTSIDE RECORDS SUMMARY | 2021-10-26 16:12 | XMS_ITS | Encounter Summary ---
:1960 Author Organization [facility] Address [address] [place] [address] Care Team Providers Name Role Phone Reagan Campos M.D. Primary Care Provider [phone] Reason for Referral Specialty Diagnoses / Procedures Referred By Contact Refer red To Contact Daniela Flores M.D. [facility] [address] [place] [address] Referral ID Status Reason Start Date Expiration Date Visits Requ ested Visits Authorized Encounter Details Date Type Department Care Team Description 06/15/2020 Orders Only [facility] PCP [facility] MNT Sa carmella Flores M.D. [address] [place], [place] [phone] (Wo rk) Social History Tobacco Use Types [...] How often do you attend alevism or sikhism services? Patien t refused 12/11/2018 Do you [...] Outpatient Referral Routine Ex pected: office visit Initial 021 (Approximate), Expires: 06/15/2021 documented as of this encounter Visit Diagnoses Not on filedocumented in this encounter Additional Health Concerns Assessment Noted Time PHQ-9 Depression Total Score: 1 03/04/2020 1:48 PM [facility] [employer] documented as of this encounter Care Teams Painter Helper Spray Relationship Specialty Start Date End Date Reagan Campos M.B.B.S., Ayla. PCP - General 01/27/[address] [place] [address] [place] [address] documented as of this encounter
--- OUTSIDE RECORDS SUMMARY | 2021-10-26 16:12 | XMS_ITS | Encounter Summary ---
:1960 Author Organization [facility] Address [address] [place] [address] Care Team Providers Name Role Phone Reagan Campos M.D. Primary Care Provider [phone] Reason for Visit Reason Comments Med Refill Encounter Details Date Type Department Care Team Description 02/16/2020 Refill Department of Family Medicine, Reagan Campos I., Med Refill [facility], in [place], [place] 300 [facility] [address] [place] [address] [place] [address] [phone] Social History Tobacco Use Types Packs/Day Years [...] How often do you attend jew or tenriism services? Patien t refused 12/11/2018 Do you [...] this encounter Miscellaneous Notes Telephone Encounter - Dorothy Bledsoe - 02/17/2020 11:42 AM VICE PRESIDENT INTEGRATED Called and left a message for the patient to call back to schedule an appointment. PRESIDENT INTEGRATED Telephone Encounter - Sybil Leroy L.P.N. - 02/17/2020 11:25 AM VICE PRESIDENT INTEGRATED Please call and assist patient in making an appointment. PRESIDENT INTEGRATED Telephone Encounter - Louie Hurt M.D. - 02/17/2020 9:06 AM CST Patient requesting refill of bupropion. Last seen by Dr. England about 15 months ago. No visits with anyone since then. We will give 1 refill and advise of need for an appointment PRESIDENT INTEGRATED documented in this encounter Plan of Treatment Not on filedocumented as of this encounter Visit Diagnoses Not on filedocumented in this encounter Additional Health Concerns Assessment Noted Time PHQ-9 Depression Total Score: 5 12/12/2018 7:47 AM CDT documented as of this encounter Care Teams Wind Tunnel Mechanic Relationship Specialty Start Date End Date Reagan Campos M.B.B.S., M.D. PCP - General 01/27/[address] [place] [address] [place] [address] documented as of this encounter
--- OUTSIDE RECORDS SUMMARY | 2021-10-26 16:12 | XMS_ITS | Encounter Summary ---
:1960 Author Organization [facility] Address [address] [place] [address] Care Team Providers Name Role Phone Reagan Campos M.D. Primary Care Provider [phone] Reason for Visit Reason Comments Med Refill Encounter Details Date Type Department Care Team Description 01/17/2019 Refill Department of Family Medicine, Danica ndiaye M.D. Med Refill [facility], in [address] [place] [address] [address] [place] [address] [place] [address] [phone] Social History Tobacco Use Types Packs/Day Years [...] How often do you attend jew or sabianist services? Patien t refused 12/11/2018 [...] documented as of this encounter Care Teams Operator Technician Relationship Specialty Start Date End Date Reagan Campos M.B.B.S., M.D. PCP - General 01/27/[address] [place] [address] Jennifer Juarez, [place] [address] documented as of this encounter
--- OUTSIDE RECORDS SUMMARY | 2021-10-26 16:12 | XMS_ITS | Encounter Summary ---
:1960 Author Organization [facility] Address [address] [place] [address] Care Team Providers Name Role Phone Reagan Campos M.D. Primary Care Provider [phone] Reason for Referral Outpatient (Routine) - Closed Specialty Diagnoses / Procedures Referred By Contact Refer red To Contact Diagnoses Abnormal Mammogram Reagan Campos [facility] [place] [facility] Procedures BI Ultrasound Breast Focused Tricia Poole M.D. [address] [place] [address] Referral ID Status Reason Start Date Expiration Date Visits Requ ested Visits Authorized [id number] Closed 03/04/2020 03/04/2021 1 1 LE TACK PULLER HAND Reason for Visit Outpatient (Routine) - Closed Specialty Diagnoses / Procedures Referred By Contact Refer red To Contact Diagnoses Abnormal Mammogram Reagan Campos [facility] [place] [facility] Procedures BI Ultrasound Breast Focused Tricia Poole M.D. [address] [place] [address] Referral ID Status Reason Start Date Expiration Date Visits Requ ested Visits Authorized [id number] Closed 03/04/2020 03/04/2021 1 1 Encounter Details Date Type Department Care Team Description 03/16/2020 Hospital Encounter Department of Reagan Campos Mammogram Radiology in [place]., M.B.B.Gianna [place] M.D. [address] [place] [phone] Social History Tobacco Use Types Packs/Day Years [...] How often do you attend mormon or confucianist services? Patien t refused 12/11/2018 Do you [...] Name Priority Date/Time Associated Comments Diagnosis BI ULTRASOUND RAD - Routine 03/16/2020 3:13 Abnormal Results fo r this BREAST FOCUSED (most inpatients PM INSOLE TACK PULLER HAND Mammogram procedure are in LEFT and all the results outpatients) section. documented in this encounter Results BI Ultrasound Breast Focused Left (03/16/2020 3:13 PM INSOLE TACK PULLER HAND) Anatomical Region Laterality Modality Breast, Breast Imaging RST LOS, Breast Imaging ARZ LOS, Shi st Left Ultrasound Imaging FLA LOS Specimen (Source) Anatomical Collection Method Collection Time Re ceived Time Location / / Volume Laterality 03/16/2020 3:55 PM INSOLE TACK PULLER HAND Impressions 03/16/2020 4:00 PM INSOLE TACK PULLER HAND No mammographic findings of malignancy. RECOMMENDATION: ??Annual [...] ??BI-RADS: 2: Benign. Narrative 03/16/2020 4:00 PM INSOLE TACK PULLER HAND EXAM: ??BI BREAST DIAGNOSTIC LEFT WITH TOMOSYNTHESIS, [...] Depression Total Score: 1 03/04/2020 1:48 PM INSOLE TACK PULLER HAND documented as of this encounter Care Teams Solid Plasterer Relationship Specialty Start Date End Date Reagan Campos M.B.B.S., M.D. PCP - General 01/27/[address] [place] [address] [place] [phone] documented as of this encounter
--- OUTSIDE RECORDS SUMMARY | 2021-10-26 16:12 | XMS_ITS | Encounter Summary ---
:1960 Author Organization [facility] Address [address] [place] [address] Care Team Providers Name Role Phone Reagan Campos M.D. Primary Care Provider [phone] Encounter Details Date Type Department Care Team Description 03/09/2020 Hospital Encounter Department of aKtina Regalado, Hyperli pidemia Mixed; Laboratory Medicine TERMINAL OPERATIONS SUPERVISOR, C.N.P. Impaired Fasting Glucose; in [place] [address] [place], [place] 300 [facility] [address] [place], [place] [phone] [address] (Work) [phone] Social History Tobacco Use Types Packs/Day Years [...] 12/11/2018 relatives? How often do you attend christianity or rastafari services? Patien t refused 12/11/2018 Do you belong to any clubs or organizations such as Patient refused 12/11/2018 christianity groups, unions, fraternal or athletic groups, or [...] Diagnosis Comme nts LIPID PANEL, S Routine 03/09/2020 9:46 AM Hyperlipidemia Mixed Results for this SUPERVISOR PATCHING procedure are i n the results section. THYROID FUNCTION Routine 03/09/2020 9:46 AM Hypothyroidism Res ults for this CASCADE, S SUPERVISOR PATCHING procedure are i n the results section. CBC WITH Routine 03/09/2020 9:46 AM Hypothyroidism Results for this DIFFERENTIAL, B SUPERVISOR PATCHING procedure ar e in the results section. BASIC METABOLIC Routine 03/09/2020 9:46 AM Impaired Fasting Re sults for this PANEL, S/P SUPERVISOR PATCHING Glucose procedure are i n the results section. documented in this encounter Results Thyroid Function [facility] (03/09/2020 9:46 AM SUPERVISOR PATCHING) P athologist Signature TSH, Sensitive 1.3 0.3 - 4.2 03/09/2020 [facility] mIU/L 2:26 PM SUPERVISOR PATCHING Specimen Anatomical Collection Method Collection Time Receive d Time (Source) Location / / Volume Laterality Blood (Blood, 03/09/2020 9:46 AM 03/09/19 21 1:25 Venous) SUPERVISOR PATCHING PM SUPERVISOR PATCHING Katina Regalado APRN, C.N.P. LAB BLOOD ADD-ON Performing Organization Address City/State/ZIP Code Phon e Number [facility]- [address] [place] [address] [facility] [place] [address] System in [place] [address]199 CBC with Differential, Blood (03/09/2020 9:46 AM SUPERVISOR PATCHING) P athologist Signature Hemoglobin 13.0 11.6 - 03/09/2020 FB60 15.0 g/dL 10:07 AM SUPERVISOR PATCHING Hematocrit 39.8 35.5 - 03/09/2020 FB60 44.9 % 10:07 AM SUPERVISOR PATCHING Erythrocytes 4.34 3.92 - 03/09/2020 FB60 5.13 10:07 AM SUPERVISOR PATCHING x10(12)/L MCV 91.7 78.2 - 03/09/2020 FB60 97.9 fL 10:07 AM SUPERVISOR PATCHING RBC Distrib Width 13.6 12.2 - 03/09/2020 FB60 16.1 % 10:07 AM SUPERVISOR PATCHING Platelet Count 217 157 - 371 03/09/2020 FB60 x10(9)/L 10:07 AM SUPERVISOR PATCHING Leukocytes 4.0 3.4 - 9.6 03/09/2020 FB60 x10(9)/L 10:07 AM SUPERVISOR PATCHING Neutrophils 2.08 1.56 - 03/09/2020 FB60 6.45 10:07 AM SUPERVISOR PATCHING x10(9)/L Lymphocytes 1.55 0.95 - 03/09/2020 FB60 3.07 10:07 AM SUPERVISOR PATCHING x10(9)/L Monocytes 0.33 0.26 - 03/09/2020 FB60 0.81 10:07 AM SUPERVISOR PATCHING x10(9)/L Eosinophils 0.04 0.03 - 03/09/2020 FB60 0.48 10:07 AM SUPERVISOR PATCHING x10(9)/L Basophils 0.03 0.01 - 03/09/2020 FB60 0.08 10:07 AM SUPERVISOR PATCHING x10(9)/L Specimen Anatomical Collection Method Collection Time Receive d Time (Source) Location / / Volume Laterality Blood (Blood, 03/09/2020 9:46 AM 03/09/19 9:46 Venous) SUPERVISOR PATCHING AM SUPERVISOR PATCHING Katina Regalado APRN, C.N.P. LAB BLOOD ADD-ON Performing Organization Address City/State/ZIP Code Phon e Number [facility]- [address] [place] [address] [facility] [place] [address] System in [place] [address] (ABNORMAL) Basic Metabolic Panel (03/09/2020 9:46 AM SUPERVISOR PATCHING) P athologist Signature Potassium, P 4.2 3.6 - 5.2 03/09/2020 [place] mmol/L 2:18 PM SUPERVISOR PATCHING Sodium, P 142 135 - 145 03/09/2020 [facility] mmol/L 2:18 PM SUPERVISOR PATCHING Chloride, P 104 98 - 107 03/09/2020 [place] mmol/L 2:18 PM SUPERVISOR PATCHING Bicarbonate, P 32 (H) 22 - 29 03/09/2020 [facility] mmol/L 2:18 PM SUPERVISOR PATCHING Anion Gap, P 6 (L) 7 - 15 03/09/2020 [place] 2:18 PM SUPERVISOR PATCHING BUN (Blood Urea 11 6 - 21 03/09/2020 [facility] Nitrogen), P mg/dL 2:18 PM SUPERVISOR PATCHING Creatinine 0.93 0.59 - 03/09/2020 [place] 1.04 mg/dL 2:18 PM SUPERVISOR PATCHING eGFR-Black/Afri 78 >=60 03/09/2020 [facility] can Libyan mL/min/BSA 2:18 PM SUPERVISOR PATCHING Comment: ----ADDITIONAL INFORMATION---- Estimated GFR calculated using the 2009 CKD_EPI creatinine equation. eGFR Non-Black/ 67 >=60 mL/min/BSA 2:18 PM SUPERVISOR PATCHING [facility] Comment: ----ADDITIONAL INFORMATION---- Estimated GFR calculated using the 2009 CKD_EPI creatinine equation. Calcium, Total, P 9.5 8.6 - 10.0 mg/dL 03/09/2020 2:18 PM SUPERVISOR PATCHING [place] Glucose, P 111 70 - 140 mg/dL 03/09/2020 2:18 PM SUPERVISOR PATCHING O EULALIA Specimen Anatomical Collection Method Collection Time Receive d Time (Source) Location / / Volume Laterality Blood (Blood, 03/09/2020 9:46 AM 03/09/19 1:25 Venous) SUPERVISOR PATCHING PM SUPERVISOR PATCHING Katina Regalado APRN, C.N.P. LAB BLOOD ADD-ON Performing Organization Address City/State/ZIP Code Phon e Number [facility]- [address] [place] [address] [place] [address] System in [place] [address] (ABNORMAL) Lipid Panel (03/09/2020 9:46 AM SUPERVISOR PATCHING) P athologist Signature Cholesterol, 291 (H) mg/dL 03/09/2020 [facility] Total 2:18 PM SUPERVISOR PATCHING Comment: ----REFERENCE VALUE---- Desirable: < 200 Borderline high: 200 - 239 High: > or = 240 Triglycerides 183 (H) mg/dL 03/09/2020 2:18 PM SUPERVISOR PATCHING OWA T Comment: ----REFERENCE VALUE---- Normal: <150 Borderline high: 150-199 High: 200-499 Very high: > or =500 Cholesterol, HDL 50 >=50 mg/dL 03/09/2020 2:18 PM SUPERVISOR PATCHING [facility] Calculated LDL 204 (H) mg/dL 03/09/2020 2:18 PM SUPERVISOR PATCHING [facility] Comment: The markedly elevated LDL level is sugge stive of a genetic condition such as familial hypercholesterolemia (FH) or familial defective apolipoprotei n B-100 (FDB). Molecular genetic testing for FH and FDB is available through [facility]: Hyperc holesterolemia Gene Panel (test FHRGP). [...] veronica oconnor at or the on-line test catal rachel at [employer] for informati on about how to order these tests or to speak with a [facility] counselor. Further interpretation would require cli nical information. ----REFERENCE VALUE---- Desirable: <100 Above Desirable: 100-129 Borderline high: 130-159 High: 160-189 Very high: > or =190 Cholesterol, Non-HDL, Calculated 241 (H) mg/dL 021 2:18 PM SUPERVISOR PATCHING [facility] Comment: ----REFERENCE VALUE---- Desirable: <130 Above Desirable: 130-159 Borderline high: 160-189 High: 190-219 Very high: > or =220 Specimen Anatomical Collection Method Collection Time Receive d Time (Source) Location / / Volume Laterality Blood (Blood, 03/09/2020 9:46 AM 03/09/19 21 1:25 Venous) SUPERVISOR PATCHING PM SUPERVISOR PATCHING Katina Regalado APRN C.N.PBrigitte LAB BLOOD ADD-ON Performing Organization Address City/State/ZIP Code Phon e Number [facility]- [address] [place] [address] [place] [address] System in [place] [address] documented in this encounter Visit Diagnoses Diagnosis Hyperlipidemia Mixed Impaired Fasting Glucose Hypothyroidism documented in this encounter Additional Health Concerns Assessment Noted Time PHQ-9 Depression Total Score: 1 03/04/2020 1:48 PM SUPERVISOR PATCHING documented as of this encounter Care Teams Float Builder Relationship Specialty Start Date End Date Reagan Campos M.B.BBrigitteSBrigitte, MEdward. PCP - General 01/27/[address] [place] [address] [place] [phone] documented as of this encounter
--- OUTSIDE RECORDS SUMMARY | 2021-10-26 16:12 | XMS_ITS | Encounter Summary ---
:1960 Author Organization [facility] Address [address] [place] [address] Care Team Providers Name Role Phone Reagan Campos M.D. Primary Care Provider [phone] Reason for Visit Reason Comments Med Refill Encounter Details Date Type Department Care Team Description 02/03/2020 Refill Department of Family Medicine, Reagan Campos I., Med Refill [facility], in [place] Po[place], [place] 300 [facility] [address] [place] [address] [place] [address] [phone] Social History Tobacco Use Types Packs/Day Years [...] 12/11/2018 relatives? How often do you attend yazidism or advent services? Patien t refused 12/11/2018 Do you belong to any clubs or organizations such as Patient refused 12/11/2018 yazidism groups, unions, fraternal or athletic groups, or [...] documented as of this encounter Care Teams Rn Intern Relationship Specialty Start Date End Date Reagan Campos M.B.B.S., M.D. PCP - General 01/27/[address] [place] [address] [place] [phone] documented as of this encounter
--- OUTSIDE RECORDS SUMMARY | 2021-10-26 16:12 | XMS_ITS | Encounter Summary ---
:1960 Author Organization [facility] Address [address] [place] [address] Care Team Providers Name Role Phone Reagan Campos M.D. Primary Care Provider [phone] Reason for Referral Outpatient (Routine) - Closed Specialty Diagnoses / Procedures Referred By Contact Refer red To Contact Diagnoses Osteopenia Katina Regalado APRN, C.N.P. [facility] [place] [facility] Procedures BMD Bone Density Spine Hips [address] [place] [address] Referral ID Status Reason Start Date Expiration Date Visits Requ ested Visits Authorized [id number] Closed 03/04/2020 03/04/2021 1 1 NICAL SALES SUPPORT SPECIALIST Reason for Visit Outpatient (Routine) - Closed Specialty Diagnoses / Procedures Referred By Contact Refer red To Contact Diagnoses Osteopenia Katina Regalado APRN, C.N.P. [facility] [place] [facility] Procedures BMD Bone Density Spine Hips [address] [place] [address] Referral ID Status Reason Start Date Expiration Date Visits Requ ested Visits Authorized [id number] Closed 03/04/2020 03/04/2021 1 1 Encounter Details Date Type Department Care Team Description 03/16/2020 Hospital Encounter Department of Radiology Katina Regalado APRN, Osteopenia in [facility] C.N.P. [address] [place] [address] [place] [phone] (Wo rk) Social History Tobacco Use Types [...] 12/11/2018 relatives? How often do you attend latter-day or latter day services? Patien t refused 12/11/2018 Do you belong to any clubs or organizations such as Patient refused 12/11/2018 latter-day groups, unions, fraternal or athletic groups, or [...] Procedure Name Priority Date/Time Associated Comments Diagnosis BMD BONE DENSITY RAD - Routine 03/16/2020 1:09 Osteopenia Results for this SPINE HIPS (most inpatients PM TECHNICAL SALES SUPPORT SPECIALIST procedure a re in and all the results outpatients) section. documented in this encounter Results BMD Bone Density Spine Hips (03/16/2020 1:09 PM TECHNICAL SALES SUPPORT SPECIALIST) Anatomical Region Laterality Modality Hip, Lumbar Spine, Nuclear Medicine RST LOS, N/A Radiographic Imaging Musculoskeletal ARZ LOS, Muskuloskeletal FLA LOS Specimen (Source) Anatomical Collection Method Collection Time Re ceived Time Location / / Volume Laterality 03/16/2020 2:33 PM TECHNICAL SALES SUPPORT SPECIALIST Impressions 03/16/2020 2:35 PM TECHNICAL SALES SUPPORT SPECIALIST Low bone density (osteopenia). Lumbar spine Narrative 03/16/2020 2:35 PM TECHNICAL SALES SUPPORT SPECIALIST EXAM: BMD BONE DENSITY SPINE HIPS COMPARISON: None Simplex Operator/Model: Curvo FINDINGS: ?? LUMBAR SPINE Level: L1-L4 included [...] BMD BONE DENSITY SPINE HIPS COMPARISON: None Simplex Operator/Model: Curvo FINDINGS: LUMBAR SPINE Level: L1-L4 included unless [...] density (osteopenia). Lumbar sp ine Katina Regalado APRN C.N.PBrigitte IMG DXA PROCEDURES documented in this encounter Visit Diagnoses Diagnosis Osteopenia documented in this encounter Additional Health Concerns Assessment Noted Time PHQ-9 Depression Total Score: 1 03/04/2020 1:48 PM TECHNICAL SALES SUPPORT SPECIALIST documented as of this encounter Care Teams Director Of Speech Pathology Relationship Specialty Start Date End Date Reagan Campos M.B.BBrigitteSBrigitte, MEdward. PCP - General 01/27/[address] [place] [address] [place] [phone] documented as of this encounter
--- OUTSIDE RECORDS SUMMARY | 2021-10-26 16:12 | XMS_ITS | Encounter Summary ---
:1960 Author Organization [facility] Address [address] [place] [address] Care Team Providers Name Role Phone Reagan Campos M.D. Primary Care Provider [phone] Encounter Details Date Type Department Care Team Description 02/18/2020 Clinical Communication Department of [facility] Katina Regalado, Medicine, [place] C.NBrigittePBrigitte [facility], [address] [address] [place], [place] [phone] [address] (Work) [phone] Social History Tobacco Use Types Packs/Day Years [...] 12/11/2018 relatives? How often do you attend latter day or confucianism services? Patien t refused 12/11/2018 Do you belong to any clubs or organizations such as Patient refused 12/11/2018 latter day groups, unions, fraternal or athletic groups, or [...] this encounter Miscellaneous Notes Telephone Encounter - Warren Dennise Mitchell - 02/18/2020 10:28 AM CST What is the purpose of the call?: Standard Appointment Process Standard Appointment Process Have you tested positive for COVID-19 in the last 20 days OR do you have a pending COVID-19 test because you had symptoms?: No, neither apply What region is the appointment being requested?: Less than 20 days RST, SWWI or SEMN In the past 14 days are any of the following symptoms new to you and not related to an existing health condition?: No symptoms noted In the past 14 days have you had close contact* with a person who has a LABORATORY CONFIRMED case ofCOVID-19?: No exposure noted, follow appt process (End Screening) Testing Recommendation Endpoint Is testing recommended? : Not recommended to test Plan: Endpoint recommendation: Followed regional OTG *Reminder if sending patient for testing in RST or [facility], route encounter to the correct testing pool. ENTRY TEACHER documented in this encounter Plan of Treatment Not on filedocumented as of this encounter Visit Diagnoses Not on filedocumented in this encounter Additional Health Concerns Assessment Noted Time PHQ-9 Depression Total Score: 5 12/12/2018 7:47 AM CDT documented as of this encounter Care Teams Emergency Medical Technician/Driver Relationship Specialty Start Date End Date Reagan Campos M.B.B.S., M.D. PCP - General 01/27/[address] [place] [address] [place] [address] documented as of this encounter
--- OUTSIDE RECORDS SUMMARY | 2021-10-26 16:12 | XMS_ITS | Encounter Summary ---
:1960 Author Organization [facility] Address [address] [place] [address] Care Team Providers Name Role Phone Danica England M.D. Primary Care Provider Reason for Visit Reason Comments Medication Visit Appointment Request (Routine) - Closed Specialty Diagnoses / Procedures Referred By Contact Refer red To Contact Family Medicine Referral ID Status Reason Start Date Expiration Date Visits Requ ested Visits Authorized [id number] Closed 12/06/2018 12/06/2019 1 1 Encounter Details Date Type Department Care Team Description 12/11/2018 Office Visit Department of Family Danica England, Krista ression Major Recurrent (HCC) (Primary Dx); Medicine, Larry Velasquez Hypothyroidism; Clinic, in [address] Personal History Of Nicotine Dependence; [place], [place] Overweight Body Mass Index 2 5-29.9 Adult; [address] [address] Impaired Fasting Glucose; [place], [place] [phone] Hyperlipidemia Mixed; [id number] (Work) Osteoarthritis; [phone] Restless Leg Sy ndrome; (Fax) Routine Screeni ng Breast Exam; Deficiency Ariana min Social History Tobacco Use Types Packs/Day Years [...] How often do you attend yazidi or buddhism services? Patien t refused 12/11/2018 Do you [...] Sign Reading Time Taken Comments Blood Pressure 110/80 12/11/2018 1:31 PM CDT Pulse 76 12/11/2018 1:31 PM CDT Temperature 36.2 ??C (97.2 ??F) 12/11/2018 1:31 PM CDT Respiratory Rate 12 12/11/2018 1:31 PM CDT Oxygen Saturation - - Inhaled Oxygen Concentration - - Weight 75.3 kg (165 lb 14.3 oz) 12/11/2018 1:31 PM CDT Height 165.5 cm (5' 5.16) 12/11/2018 1:31 PM CDT Body Mass Index 27.47 12/11/2018 1:31 PM CDT documented in this encounter Progress Notes aDnica England M.D. - 12/11/2018 1:30 PM CDT CHIEF COMPLAINT/REASON FOR VISIT Medication review HISTORY OF PRESENT ILLNESS This 58-year old female presents to clinic secondary to medication review. She is generally speakingdoing quite well. She is somewhat frustrated with her weight gain over the last several years. She is not following a diet or exercising as much as she would like. She is planning on joining a gym to swim on a regular basis. She overall feels her mood is stable but she does have good and bad days. Sheis not interested in any medication adjustments at this time. She has added some vitamin-B complex to her medication regimen and feels much better. She is not interested in immunization updates with influenza at this time. She has new dentures and last had on reviewed October 2018. Her last ophthalmic exam was 2016. She continues to have some bladder leakage but is finding physical therapy somewhathelpful. She is taking her prescription medications as prescribed and would like refills. EMR reviewed. CURRENT MEDICATIONS Current Outpatient Medications: ??? B complex-vitamins (BALANCE B-50) tablet, Take 1 tablet by mouth daily., Disp: , Rfl: ??? buPROPion (WELLBUTRIN SR) 200 mg 12 hr tablet, Take 1 tablet (200 mg total) by mouth 2 (two) times a day., Disp: 180 tablet, Rfl: 3 ??? gabapentin (NEURONTIN) 100 mg capsule, TAKE 3 CAPSULES(300 MG) BY MOUTH DAILY. FOLLOW-UP, Disp: 90 capsule, Rfl: 0 ??? levothyroxine (SYNTHROID, LEVOTHROID) 75 mcg tablet, TAKE 1 TABLET(75 MCG) BY MOUTH DAILY, Disp:15 tablet, Rfl: 0 ??? melatonin 5 mg tablet, Take by mouth., Disp: , Rfl: ??? pravastatin (PRAVACHOL) 20 mg tablet, Take 1 tablet (20 mg total) by mouth at bedtime. A higher dose of medication would be advised, Disp: 90 tablet, Rfl: 1 ??? sertraline (ZOLOFT) 100 mg tablet, TAKE 2 TABLETS(200 MG) BY MOUTH DAILY. FOLLOW-UP, Disp: 15 tablet, Rfl: 0 Allergies Allergen Reactions ??? Codeine Other (see comments) Mood changes and several other symptoms. REVIEW OF SYSTEMS Negative review of major organ systems apart from that noted in the HPI and past medical surgical history. Past Medical History: Diagnosis Date ??? Depression Major Recurrent (HCC) ??? Gastroesophageal Reflux Disease ??? Hyperlipidemia Mixed ??? Nicotine Dependence Cigarettes In Remission Quit cigarettes 2013 quit E cigarettes 2014 ??? Osteopenia ??? Overweight Body Mass Index 25-29.9 Adult ??? Periodontal Disease Resolved with dentures Past Surgical History: Procedure Laterality Date ??? BREAST BIOPSY ??? KNEE ARTHROSCOPY Left 1977 Residual pain PREVENTIVE SERVICES Tobacco: ??Quit smoking cigarettes in 2013. ??Quit using e-cigarette since 07/27/2014. Mammogram: ??11/01/2017, advised. Pap smear: 11/08/2017. Colon screen: 01/14/[address] Marquis. Recheck plan for 10 years. Depression: Yes. PHQ-9 score 5. ? Asthma: No. Lipids: 11/01/2017, elevated-advised Tetanus: 2006. Pneumovax non applicable due to age. Influenza: Declined for season. DEXA scan: 02/23/2010. SOCIAL HISTORY No alcohol Caffeine; 1 cup of coffee each day with 2 cups of tea per week Family History Problem Relation Age of Onset ??? Schizophrenia Mother ??? Diabetes mellitus - adult onset Mother ??? Hypothyroidism Sister ??? Hypothyroidism Maternal Grandmother ??? Menieres disease Maternal Grandmother ??? Lung cancer Maternal Grandfather Smoker ??? No Known Problems Paternal Grandmother ??? Cancer Paternal Grandfather ??? Bipolar Aunt ??? Depression Daughter ??? Depression Daughter ??? Depression Daughter Vitals: 12/11/18 1331 BP: 110/80 BP Location: Left arm Patient Position: Sitting Cuff Size: Regular Pulse: 76 Resp: 12 Temp: 36.2 ??C TempSrc: Temporal Weight: 75.3 kg Height: 165.5 cm PHYSICAL EXAM General: Neatly dressed well groomed. HEENT: PERRL. EOMs are full. Ears: TMs are frias, good visualization of landmarks. Nose: Mucosal membranes pink and moist. Oral: No exudates. Teeth in good condition. No pharyngeal erythema. Neck: Rangeof motion consistent with patient's stated age body habitus. Trachea midline. Lymph nodes: No cervical adenopathy. Thyroid: No thyroid masses, tenderness or enlargement. Heart: Regular rate and rhythm. No clicks, rubs or murmurs. Lungs: Clear to auscultation. No palpable chest wall masses. Abdomen: Soft, nontender, bowel sounds present, no organomegaly. MENTAL:?? Speech is of normal rate and volume, articulate, coherent, spontaneous with no notation ofabnormalities.?? Thought processes reveal primarily concrete thing.?? No loose tangential circumstantial thoughts.?? No hallucinations.?? No delusions.?? No preoccupation with violence.?? No homicidal or suicidal ideations.?? Some psychosocial some ruminations.?? Gaining insight into situation and illness process.?? Oriented to person, place and time.?? Recent and remote memory are intact.?? Attention span and concentration are near baseline.?? Language and fund of knowledge suggest average intellect.?? Mood and affect reflect some evidence of depression, some anxiety, no agitation, no hypomania with some emotional lability.?? ASSESSMENT/PLAN 1. Hypothyroidism with evaluation in process 2. Overweight-slowly progressive with evaluation and treatment in process 3. Impaired fasting glucose with evaluation in process 4. Mixed hyperlipidemia with evaluation in process 5. Osteoarthritis-progressive 6. Restless legs syndrome currently stabilized with treatment 7. Personal history of nicotine dependence currently in remission 8. Major recurrent depression with patient's desire to maintain current dose of medication Supportive measures discussed in detail. Would be happy to update immunizations should patient changed her mind. Will check labs in the near future with a CBC, vitamin B12 assay, AST, lipid profile, basic metabolic profile, and TSH following up accordingly. Will give refills as appropriate. Will arrange for mammogram in the near future. Continue close follow-up with her OBGYN. Patient would likely benefit from a higher dose of her sertraline but she is not interested in this option at this time. Risks and benefits of medications discussed. All questions answered. Signs and symptoms to lead to emergent evaluation are reviewed. See the medication reconciliation and preventive services. She will consider her options. Spent 15 of the 25 minute visit in discussion. documented in this encounter Plan of Treatment Not on filedocumented as of this encounter Results BI Breast Screening Bilateral [...] BILATERAL Current study was evaluated with a Arteriocyte Medical Systemsu ter Aided Detection (CAD) system. INDICATION: ??Screening mammogram. COMPARISON: ??Prior exam(s) were availab le and reviewed for comparison. DENSITY: ??b. There are scattered areas of fibroglandular density. FINDINGS: ??No mammographic findings of malignancy. Procedure Note Tani Oseguera M.D. - 12/12/2018Forma tting of this note might be different from the original. EXAM: BI BREAST SCREENING BILATERAL Current study was evaluated with a Arteriocyte Medical Systemsu ter Aided Detection (CAD) system. INDICATION: Screening mammogram. COMPARISON: Prior exam(s) were available and reviewed for comparison. DENSITY: b. There are scattered areas of fibroglandular density. FINDINGS: No mammographic findings of ma lignancy. IMPRESSION: Negative. RECOMMENDATION: Annual Screening Mammogr am ASSESSMENT: BI-RADS: 1: Negative. Danica England M.D. IMG BI PROCEDURES Vitamin B12 Assay (12/12/2018 8:27 AM CDT) athologist Signature Vitamin B12 [phone] 9208 12/12/2018 AUST Assay, S ng/L 4:39 PM CDT Comment: Biotin has been identified by the iraj felix as a potential interfering substance. ??Higher concentr ations of biotin may be found in multivitamins, hair/nail supple ments, and workout supplements. ??If the result does not ma tc clinical observations, repeat testing after patient refrains fr om the use of supplements for at least 12 hours. Specimen Anatomical Collection Method Collection Time Receive d Time (Source) Location / / Volume Laterality Blood (Blood, 12/12/2018 8:27 AM 12/13/19 19 4:00 Venous) CDT PM CDT Danica England M.D. LAB BLOOD ADD-ON Performing Organization Address City/State/[facility] Code Phon e Number [facility]- [address] [place] [address] [place] - [address] S-TSH (Thyroid-Stimulating Hormone - Sensitive) (12/12/2018 8:27 AM CDT) athologist Signature TSH, Sensitive 1.5 0.3 - 4.2 12/12/2018 [place] mIU/L 11:11 AM CDT Comment: Biotin has been identified by the iraj felix as a potential interfering substance. ??Higher concentr ations of biotin may be found in multivitamins, hair/nail supple ments, and workout supplements. ??If the result does not ma tc clinical observations, repeat testing after patient refrains fr om the use of supplements for at least 12 hours. Specimen Anatomical Collection Method Collection Time Receive d Time (Source) Location / / Volume Laterality Blood (Blood, 12/12/2018 8:27 AM 12/13/19 19 Venous) CDT 10:41 AM CDT Danica England M.D. LAB BLOOD ADD-ON Performing Organization Address City/State/ZIP Code Phon e Number [facility]- [address] [place] [address] [place] [address] System in [place] [address] [facility] CBC with Differential, Blood (12/12/2018 8:27 AM [...] 19 8:28 Venous) CDT AM CDT Danica J Hurtt M.D. LAB BLOOD ADD-ON Performing Organization Address City/State/ZIP Code Phon e Number [facility]- [address] [place] [address] [facility] [address] [place] [address] System in [place] [address] (ABNORMAL) Lipid Panel (12/12/2018 8:27 AM CDT) [...] for FH and FDB is available through [facility]: FH/ADH Genetic Reflex Panel (test [...] or the on-line test claire ramos at [employer] for informati on about how to order these tests or to speak with a [facility] counselor. Further interpretation would require cli nical [...] M.D. LAB BLOOD ADD-ON Performing Organization Address City/[facility]/ZIP Code Phon e Number [facility]- [address] [place] [address] [place] [address] System in [place] [address] AST (Aspartate Aminotransferase) (12/12/2018 8:27 AM CDT) Patholo gist Method Time Signature Aspartate 37 8 - 43 12/12/2018 [place] Aminotransferase U/L 11:38 AM CDT (AST), S Specimen Anatomical Collection Method Collection Time Receive d Time (Source) Location / / Volume Laterality Blood (Blood, 12/12/2018 8:27 AM 12/13/19 Venous) CDT 10:41 AM CDT Danica England M.D. LAB BLOOD ADD-ON Performing Organization Address City/[facility]/ZIP Code Phon e Number [facility]- [address] [place] [address] [place] [address] System in [place] [address] (ABNORMAL) BMP (Basic Metabolic Panel) (12/12/2018 [...] 12/12/2018 [place] Black/ mL/min/BSA 11:38 AM CDT [place] Comment: ----ADDITIONAL INFORMATION---- Estimated GFR calculated using [...] Organization Address City/State/ZIP Code Phon e Number [facility]- [address] [place] [address] [place] [address] System in [place] [address] documented in this encounter Visit Diagnoses Diagnosis Depression Major Recurrent (HCC) - Prima ry Hypothyroidism Personal History Of Nicotine Dependence Overweight Body Mass Index 25-29.9 Adult Impaired Fasting Glucose Hyperlipidemia Mixed Osteoarthritis Restless Leg Syndrome Routine Screening Breast Exam Deficiency Vitamin Routine Screening Breast Exam documented in this encounter Additional Health Concerns Assessment Noted Time PHQ-9 Depression Total Score: 5 12/12/2018 7:47 AM CDT documented as of this encounter Care Teams Saturation Equipment Operator Relationship Specialty Start Date End Date Danica England M.D. PCP - General 08/10/16 01/26/19 documented as of this encounter
--- OUTSIDE RECORDS SUMMARY | 2021-10-26 16:13 | XMS_ITS | Encounter Summary ---
:1960 Author Organization [facility] Address [address] [place] [address] Care Team Providers Name Role Phone Danica England M.D. Primary Care Provider Encounter Details Date Type Department Care Team Description 11/05/2018 Orders Only Department of Family Shelley England M.D. Medicine, [facility], [address] [place] [address] [place] [address] [place] [address] [place] [address] [phone] Social History Tobacco Use Types Packs/Day Years [...] 12/11/2018 relatives? How often do you attend zoroastrianism or worship services? Patien t refused 12/11/2018 Do you belong to any clubs or organizations such as Patient refused 12/11/2018 zoroastrianism groups, unions, fraternal or athletic groups, or [...] documented as of this encounter Care Teams Coke Handling Supervisor Relationship Specialty Start Date End Date Danica England M.D. PCP - General 08/10/16 01/26/19 documented as of this encounter
--- OUTSIDE RECORDS SUMMARY | 2021-10-26 16:13 | XMS_ITS | Encounter Summary ---
:1960 Author Organization [facility] Address [address] [place] [address] Care Team Providers Name Role Phone Danica England M.D. Primary Care Provider Encounter Details Date Type Department Care Team Description 01/30/2018 Orders Only Department of Family Danica England Hyp erlipidemia [facility] MedicineLarry M.D. (Primary Dx) Clinic, in [address] [phone] (Work) [phone] Social History Tobacco Use Types Packs/Day Years [...] How often do you attend jewish or adventist services? Patien t refused 12/11/2018 Do you [...] of this encounter Visit Diagnoses Diagnosis Hyperlipidemia Mixed - Primary documented in this encounter Additional Health Concerns Assessment Noted Time PHQ-9 Depression Total Score: 1 09/25/2017 9:39 AM CDT documented as of this encounter Care Teams Parts Interpreter Relationship Specialty Start Date End Date Danica England M.D. PCP - General 08/10/16 01/26/19 documented as of this encounter
--- OUTSIDE RECORDS SUMMARY | 2021-10-26 16:13 | XMS_ITS | Encounter Summary ---
:1960 Author Organization [facility] Address [address] [place] [address] Care Team Providers Name Role Phone Danica England M.D. Primary Care Provider Reason for Referral Physical Therapy (Routine) - Closed Specialty Diagnoses / Procedures Referred By Contact Refer red To Contact Diagnoses Fracture Rib Single Closed Initial Right Danica England M.D. [facility] [address] [place] [address] [place] [address] Phone: [phone] Referral ID Status Reason Start Date Expiration Date Visits V isits Requested Authorized [id number] Closed Service not 04/09/2018 04/09/2019 1 1 available in [facility] ENT COUNSELOR Reason for Visit Reason Comments Pain In Limb rib pain right side, fell on ice Mar 16 Appointment Request (Routine) - Closed Specialty Diagnoses / Procedures Referred By Contact Refer red To Contact Family Medicine Referral ID Status Reason Start Date Expiration Date Visits Requ ested Visits Authorized [id number] Closed 04/09/2018 04/09/2019 1 Encounter Details Date Type Department Care Team Description 04/09/2018 Office Visit Department of Family Danica England Per sonal History Of Nicotine Dependence (Primary Dx); Medicine, Larry Velasquez Depression Major Recurrent (HCC); Clinic, in [place], [address] Overweight Body Mass Index 25-29.9 Adult ; [place], [place] Pain Chest Wall; [address] [address] Fracture Rib Single Closed Initial Right [place], [place] [phone] [address] (Work) [phone] Social History Tobacco Use Types Packs/Day Years [...] Sign Reading Time Taken Comments Blood Pressure 102/67 04/09/2018 10:38 AM STUDENT COUNSELOR Pulse 72 04/09/2018 10:38 AM STUDENT COUNSELOR Temperature 36.4 ??C (97.5 ??F) 04/09/2018 10:38 AM STUDENT COUNSELOR Respiratory Rate 16 04/09/2018 10:38 AM STUDENT COUNSELOR Oxygen Saturation - - Inhaled Oxygen Concentration - - Weight 77.9 kg (171 lb 11.8 oz) 04/09/2018 10:38 AM STUDENT COUNSELOR Height - - Body Mass Index 28.61 11/01/2017 9:34 AM CDT documented in this encounter Progress Notes Danica England M.D. - 04/09/2018 10:30 AM CST CHIEF COMPLAINT/REASON FOR VISIT Chest wall pain HISTORY OF PRESENT ILLNESS This 57-year old female presents to clinic secondary to right chest wall pain. She was cleaning off her car 03/16/2018 when she slipped landing on her right side. She has had increased pain since that time. She did not develop a bruise. She is frustrated with the duration of her symptoms. She is right-hand dominant. She has been taking 600 mg of ibuprofen 3 times per day with some relief of her symptoms. She has on occasion fall asleep with her heating pad which is somewhat helpful. She has not had a cold. She is having no other symptomatology. She is taking her other medications as prescribed. EMRreviewed. CURRENT MEDICATIONS Current Outpatient Prescriptions: ??? buPROPion (WELLBUTRIN SR) 200 mg 12 hr tablet, Take 1 tablet (200 mg total) by mouth 2 (two) times a day., Disp: 180 tablet, Rfl: 3 ??? gabapentin (NEURONTIN) 100 mg capsule, Take 3 capsules (300 mg total) by mouth daily., Disp: 270capsule, Rfl: 2 ??? levothyroxine (SYNTHROID, LEVOTHROID) 75 mcg tablet, Take 1 tablet (75 mcg total) by mouth daily., Disp: 90 tablet, Rfl: 3 ??? melatonin 5 mg tablet, Take by mouth., Disp: , Rfl: ??? pravastatin (PRAVACHOL) 20 mg tablet, Take 1 tablet (20 mg total) by mouth at bedtime. A higher dose of medication would be advised, Disp: 90 tablet, Rfl: 0 ??? sertraline (ZOLOFT) 100 mg tablet, Take 2 tablets (200 mg total) by mouth daily., Disp: 180 tablet, Rfl: 3 Allergies Allergen Reactions ??? Codeine Other (see [...] 2013. ??Quit using e-cigarette since 07/27/2014. Mammogram: ??06/06/2016. Advised. Pap smear: 07/27/2014. Planned with OBGYN in the near future. Colon screen: 01/14/[address] Marquis. Recheck plan for 10 years. Depression: Yes. PHQ-9 score 1. ? Asthma: No. Lipids: 06/07/2016. Planned for the near future. Tetanus: 2006. Pneumovax non applicable due to age. Influenza: Declined for season. DEXA scan: 02/23/2010. SOCIAL HISTORY No alcohol Seatbelt is utilized Family History Problem Relation Age of Onset ??? Schizophrenia Mother ??? Diabetes mellitus - adult onset Mother ??? Hypothyroidism Sister ??? Hypothyroidism Maternal Grandmother ??? Menieres disease Maternal Grandmother ??? Lung cancer Maternal Grandfather Smoker ??? No Known Problems Paternal Grandmother ??? Cancer Paternal Grandfather ??? Bipolar Aunt ??? Depression Daughter ??? Depression Daughter ??? Depression Daughter . Vitals: 04/09/18 1038 BP: 102/67 Patient Position: Sitting Pulse: 72 Temp: 36.4 ??C Resp: 16 Weight: 77.9 kg TempSrc: Temporal PHYSICAL EXAM General: Neatly dressed well groomed. [...] Clear to auscultation. No palpable chest wall masses but marked tenderness in the right anterior chest wall more prominently at about T 4 through 6 just barely anteriorly. No erythema or swelling is noted at the site of discomfort. LABS AND PROCEDURES EXAM: DX RIBS RIGHT 2 VIEWS WITH CHEST POSTEROANTERIOR 1 VIEW ? IMPRESSION: Acute nondisplaced fracture of the right fifth rib laterally. The lungs are clear. No pneumothorax ASSESSMENT/PLAN 1. Right 5th rib fracture with treatment in process 2. Personal history of nicotine dependence currently in remission 3. Major recurrent depression currently stable 4. Overweight-progressive 5. History of premature menopause Supportive measures discussed in detail. Patient is alerted as to the x-ray findings via letter and a phone call. She will begin physical therapy at the [facility] Physical therapy Department. EMR documentation is completed. She will continue her ibuprofen as well as her other medications. Risks and benefits of medications discussed. All questions answered. Signs and symptoms to lead to emergent evaluation are reviewed. See the medication reconciliation and preventive services. She is comfortable with the plan. ENT COUNSELOR documented in this encounter Plan of Treatment Not on filedocumented as of this encounter Results DX Ribs Right 2 Views with Chest Posteroanterior 1 View (04/09/2018 11:29 AM STUDENT COUNSELOR) Anatomical Region Laterality Modality Ribs, Chest, Musculoskeletal RST LOS, Musculoskeletal Right Digital Radiography ARZ LOS, Muskuloskeletal FLA LOS Specimen (Source) Anatomical Collection Method Collection Time Re ceived Time Location / / Volume Laterality 04/09/2018 12:38 PM STUDENT COUNSELOR Impressions 04/09/2018 12:41 PM STUDENT COUNSELOR IMPRESSION: Acute nondisplaced fracture of the right fifth rib laterally. The lungs are clear. No pneumothorax. Narrative 04/09/2018 12:41 PM STUDENT COUNSELOR EXAM: DX RIBS RIGHT 2 VIEWS WITH CHEST POSTEROANTERIOR 1 VIEW Procedure Note Deo Streeter M.D. - 04/09/2018For matting of this note might be different from the original. EXAM: DX RIBS RIGHT 2 VIEWS WITH CHEST P OSTEROANTERIOR 1 VIEW IMPRESSION: Acute nondisplaced fracture of the right fifth rib laterally. The lungs are clear. No pneumothorax. Danica England M.D. IMG DIAGNOSTIC IMAGING PROCE BOOKER documented in this encounter Visit Diagnoses Diagnosis Personal History Of Nicotine Dependence - Primary Depression Major Recurrent (HCC) Overweight Body Mass Index 25-29.9 Adult Pain Chest Wall Fracture Rib Single Closed Initial Right Pain Chest Wall documented in this encounter Additional Health Concerns Assessment Noted Time PHQ-9 Depression Total Score: 1 09/25/2017 9:39 AM CDT documented as of this encounter Care Teams Burglar Alarm Mechanic Relationship Specialty Start Date End Date Danica England M.D. PCP - General 08/10/16 01/26/19 documented as of this encounter
--- OUTSIDE RECORDS SUMMARY | 2021-10-26 16:13 | XMS_ITS | Encounter Summary ---
:1960 Author Organization [facility] Address [address] [place] [id number] Care Team Providers Name Role Phone Danica England M.D. Primary Care Provider Encounter Details Date Type Department Care Team Description 09/20/2017 Hospital Encounter Department of Danica England Hypo thyroidism Laboratory Medicine in [place] [address] [place] [id number] Social History Tobacco Use Types Packs/Day Years Used Date Smoking Tobacco: Former Alcohol Habits Answer Date Recorded How often [...] How often do you attend congregational or evangelical services? Patien t refused 12/11/2018 Do you [...] Sig Dispensed Refills Start Date End Date buPROPion (WELLBUTRIN SR) Take 1 tablet (200 180 tablet 3 11/05/2017 200 mg 12 hr tablet mg total) by mouth 2 (two) times a day. gabapentin (NEURONTIN) Take 3 capsules 90 capsule 0 09/04/19 18 10/08/2017 100 mg capsule (300 mg total) by mouth daily. Needs follow-up levothyroxine (SYNTHROID, Take 1 tablet (75 90 tablet 0 08/201710/08/2017 LEVOTHROID) 75 mcg tablet mcg total) by mouth daily. Due for labs pravastatin Take 1 tablet (20 90 tablet 2 01/11/20172017 (for_PRAVACHOL) 20 mg mg total) by mouth tablet at bedtime. sertraline (ZOLOFT) 100 Take 2 tablets (200 60 tablet 0 10/201710/08/2017 mg tablet mg total) by mouth daily. Needs follow-up documented as of this encounter Plan of Treatment Not on filedocumented as of this encounter Procedures Procedure Name Priority Date/Time Associated Diagnosis Comme nts THYROID-STIMULATING Routine 09/20/2017 10:14 Hypothyroidism Re sults for this HORMONE-SENSITIVE AM CDT procedure are in (S-TSH) the results section. documented in this encounter Results S-TSH (Thyroid-Stimulating Hormone - Sensitive) (09/20/2017 10:14 AM CDT) P athologist Signature TSH, Sensitive 0.8 0.3 - 4.2 09/20/2017 [facility] mIU/L 1:38 PM CDT [facility] Comment: Biotin has been identified by the iraj felix as a potential interfering substance. ??Higher concentr ations of biotin may be found in multivitamins, hair/nail supple ments, and workout supplements. ??If the result does not ma [facility] clinical observations, repeat testing after patient refrains fr om the use of supplements for at least 12 hours. Specimen Anatomical Collection Method Collection Time Receive d Time (Source) Location / / Volume Laterality Blood 09/20/2017 10:14 09/20/2017 AM CDT 12:55 PM CDT Danica England M.D. LAB BLOOD ADD-ON Performing Organization Address City/State/ZIP Code Phon e Number [facility] [address] [place] [id number] LAB documented in this encounter Visit Diagnoses Diagnosis Hypothyroidism documented in this encounter Additional Health Concerns Assessment Noted Time PHQ-9 Depression Total Score: 3 07/13/2016 12:46 PM CD T documented as of this encounter Care Teams Traffic Coordinator Relationship Specialty Start Date End Date Danica England M.D. PCP - General 08/10/16 01/26/19 documented as of this encounter
--- OUTSIDE RECORDS SUMMARY | 2021-10-26 16:13 | XMS_ITS | Encounter Summary ---
:1960 Author Organization [facility] Address [address] [place] [address] Care Team Providers Name Role Phone Danica England M.D. Primary Care Provider Encounter Details Date Type Department Care Team Description 10/08/2017 Orders Only Department of Family Shelley England M.D. Medicine, [facility], [facility] [place] [address] [place] [address] [place] [address] [phone] Social History Tobacco Use Types Packs/Day Years Used Date Smoking Tobacco: Former Smokeless Tobacco: Never Alcohol Habits Answer Date Recorded How often [...] 12/11/2018 relatives? How often do you attend caodaism or cheondoism services? Patien t refused 12/11/2018 Do you belong to any clubs or organizations such as Patient refused 12/11/2018 caodaism groups, unions, fraternal or athletic groups, or [...] documented as of this encounter Care Teams Faculty Head Relationship Specialty Start Date End Date Danica England M.D. PCP - General 08/10/16 01/26/19 documented as of this encounter
--- OUTSIDE RECORDS SUMMARY | 2021-10-26 16:13 | XMS_ITS | Encounter Summary ---
:1960 Author Organization [facility] Address [address] [place] [address] Care Team Providers Name Role Phone Danica England M.D. Primary Care Provider Encounter Details Date Type Department Care Team Description 11/05/2017 Orders Only Department of Family Shelley England M.D. Medicine, [facility], [facility] [place] [address] [place] [address] [place] [address] [phone] Social History Tobacco Use Types Packs/Day Years [...] How often do you attend zoroastrianism or caodaism services? Patien t refused 12/11/2018 Do you [...] documented as of this encounter Care Teams Splunk Consultant Relationship Specialty Start Date End Date Danica England M.D. PCP - General 08/10/16 01/26/19 documented as of this encounter
--- OUTSIDE RECORDS SUMMARY | 2021-10-26 16:13 | XMS_ITS | Encounter Summary ---
:1960 Author Organization [facility] Address [address] [place] [address] Care Team Providers Name Role Phone Danica England M.D. Primary Care Provider Reason for Visit Reason Comments Med Refill Encounter Details Date Type Department Care Team Description 06/04/2018 Refill Department of Family Medicine, Danica ndiaye M.D. Med Refill [facility], in [facility] [place] [address] [place] [address] [place] [address] [phone] Social History Tobacco Use Types Packs/Day Years [...] How often do you attend zoroastrianism or congregational services? Patien t refused 12/11/2018 Do you [...] documented as of this encounter Care Teams Brake [employer] Relationship Specialty Start Date End Date Danica England M.D. PCP - General 08/10/16 01/26/19 documented as of this encounter
--- OUTSIDE RECORDS SUMMARY | 2021-10-26 16:13 | XMS_ITS | Encounter Summary ---
:1960 Author Organization [facility] Address [address] [place] [address] Care Team Providers Name Role Phone Danica England M.D. Primary Care Provider Encounter Details Date Type Department Care Team Description 07/09/2018 Orders Only [facility] PCP [facility] MNT Danica England M onitoring For [facility] [address] [place] [address] Social History Tobacco Use Types Packs/Day Years [...] 12/11/2018 relatives? How often do you attend buddhist or episcopal services? Patien t refused 12/11/2018 Do you belong to any clubs or organizations such as Patient refused 12/11/2018 buddhist groups, unions, fraternal or athletic groups, or [...] as of this encounter Visit Diagnoses Diagnosis Monitoring For Therapeutic Drug Therapy documented in this encounter Additional Health Concerns Assessment Noted Time PHQ-9 Depression Total Score: 1 09/25/2017 9:39 AM CDT documented as of this encounter Care Teams Licensed Clinician Relationship Specialty Start Date End Date Danica England M.D. PCP - General 08/10/16 01/26/19 documented as of this encounter
--- OUTSIDE RECORDS SUMMARY | 2021-10-26 16:13 | XMS_ITS | Encounter Summary ---
:1960 Author Organization [facility] Address [address] [place] [address] Care Team Providers Name Role Phone Danica England M.D. Primary Care Provider Reason for Visit Reason Comments Medication Visit Encounter Details Date Type Department Care Team Description 09/24/2017 Office Visit Department of Family Danica England, Hyp othyroidism (Primary Dx); Medicine, Larry Velasquez Depression Major Recurrent (HCC); Clinic, in [place] [address] Hyperlipidemia Mixed; [place], [place] Overweight Body Mass Index 2 5-29.9 Adult; [address] [address] Personal History Of Nicotine Dependence; [place], [place] [phone] Restless Leg S yndrome; [phone] (Work) Routine Screening Breast Exam; [phone] Incontinence Ur inary Stress And Urge (Fax) Social History Tobacco Use Types Packs/Day Years [...] How often do you attend buddhist or judaism services? Patien t refused 12/11/2018 Do you [...] Sign Reading Time Taken Comments Blood Pressure 118/72 09/24/2017 8:57 AM CDT Pulse 64 09/24/2017 8:57 AM CDT Temperature 36.4 ??C (97.5 ??F) 09/24/2017 8:57 AM CDT Respiratory Rate 12 09/24/2017 8:57 AM CDT Oxygen Saturation - - Inhaled Oxygen Concentration - - Weight 72.5 kg (159 lb 13.3 oz) 09/24/2017 8:57 AM CDT Height 165.5 cm (5' 5.16) 09/24/2017 8:57 AM CDT Body Mass Index 26.47 09/24/2017 8:57 AM CDT documented in this encounter Progress Notes Danica England M.D. - 09/24/2017 9:00 AM CDT CHIEF COMPLAINT/REASON FOR VISIT Annual medication review and other issues HISTORY OF PRESENT ILLNESS This 57-year-old female presents to the clinic secondary to annual medication review and other issues. Her mood has stabilized. She may consider weaning off some of her medications in the future but atthe present time she would like to continue on her current dosages. She has been having more bladderleakage with position changes and heavy lifting. She has reviewed a bladder sling with an OBGYN in the past and wonders if she might be able to reconsider this option. Lavalette is comfortable. She wonders if any other treatment options might be possible be side surgery. She is not fasting today butwould be happy to come in sometime in the near future. She is due for a mammogram. Given the above issues she has deferred obtaining a Pap smear until that appointment.?? EMR reviewed. MEDICATIONS RECONCILIATION? Current Outpatient Prescriptions: ??? buPROPion (WELLBUTRIN SR) 200 mg 12 hr tablet, Take 1 tablet (200 mg total) by mouth 2 (two) times a day., Disp: 180 tablet, Rfl: 3 ??? gabapentin (NEURONTIN) 100 mg capsule, Take 3 capsules (300 mg total) by mouth daily. Needs follow-up, Disp: 90 capsule, Rfl: 0 ??? levothyroxine (SYNTHROID, LEVOTHROID) 75 mcg tablet, Take 1 tablet (75 mcg total) by mouth daily. Due for labs, Disp: 90 tablet, Rfl: 0 ??? melatonin 5 mg tablet, Take by mouth., Disp: , Rfl: ??? pravastatin (PRAVACHOL) 20 mg tablet, Take 1 tablet (20 mg total) by mouth at bedtime. Due for follow-up, Disp: 30 tablet, Rfl: 0 ??? sertraline (ZOLOFT) 100 mg tablet, Take 2 tablets (200 mg total) by mouth daily. Needs follow-up, Disp: 60 tablet, Rfl: 0 Allergies Allergen Reactions ??? Codeine Other (see comments) Mood changes and several other symptoms. REVIEW OF SYSTEMS CONSTITUTIONAL: No fevers, chills, night sweats, with slow weight gain over the years.?? EYES: No difficulties with blurred vision.?? Last ophthalmic exam November 2015. ENT: No hearing loss or oral problems.??Is happy with her dentures and had them recheck June of 2017. CARDIOVASCULAR: No chest pain, palpitations, edema or true claudication. See the HPI and past medical surgical history.?? RESPIRATORY: No cough, wheeze, hemoptysis or shortness of breath.?? GASTROINTESTINAL: No abdominal pain, hematemesis, melena, dysphagia or change in daily bowel habits.?? GENITOURINARY: No nocturia, hematuria, incontinence or dysuria.?? See the HPI and past medical surgical history. MUSCULOSKELETAL: No joint pain, swelling, stiffness or obvious deformities.?? INTEGUMENTARY: No rashes or pruritus.?? NEURO: No seizures or syncopal events.? PSYCHIATRIC: No history of anxiety or depression apart from that noted in the HPI and past medical surgical history.?? No problems with sleep except as noted in the past medical surgical history.?? ENDOCRINE: No history of diabetes or thyroid problems. See the HPI and pastmedical surgical history.?? HEMATOLOGIC/LYMPHATIC: No history of anemia or bleeding.?? ALLERGIC/IMMUNOLOGIC: Please see above Past Medical History: Diagnosis Date ??? Depression Major Recurrent (HCC) ??? Gastroesophageal Reflux Disease ??? Hyperlipidemia Mixed ??? Nicotine Dependence Cigarettes In Remission Quit cigarettes 2013 quit E cigarettes 2014 ??? Osteopenia ??? Overweight Body Mass Index 25-29.9 Adult ??? Periodontal Disease Resolved with dentures Past Surgical History: Procedure Laterality Date ??? ECHOCARDIOGRAM 07/07/2010 Secondary to atypical chest pain with ejection fraction of 65% ??? KNEE ARTHROSCOPY Left 1977 Residual pain ??? VAGINAL DELIVERY X4 PREVENTIVE SERVICES: Tobacco: Quit smoking cigarettes in 2013. Quit using e-cigarette since 07/27/2014. Mammogram: 06/06/2016. Advised. Pap smear: 07/27/2014. Planned with OBGYN in the near future. Colon screen: 01/14/[address] Marquis. Recheck plan for 10 years. Depression: Yes. PHQ-9 score 1. Asthma: No. Lipids: 06/07/2016. Planned for the near future. Tetanus: 2006. Pneumovax non applicable due to age. Influenza: Declined. DEXA scan: 02/23/2010. SOCIAL HISTORY No alcohol Seatbelt is utilized Calcium intake adequate No formal exercise program but is active Family History Problem Relation Age of Onset ??? Schizophrenia Mother ??? Diabetes mellitus - adult onset Mother ??? Hypothyroidism Sister ??? Hypothyroidism Maternal Grandmother ??? Menieres disease Maternal Grandmother ??? Lung cancer Maternal Grandfather Smoker ??? No Known Problems Paternal Grandmother ??? Cancer Paternal Grandfather ??? Bipolar Aunt ??? Depression Daughter ??? Depression Daughter ??? Depression Daughter Vitals: 09/24/17 0857 BP: 118/72 Patient Position: Sitting Pulse: 64 Temp: 36.4 ??C Resp: 12 Height: 165.5 cm Weight: 72.5 kg TempSrc: Temporal PHYSICAL EXAMINATION GENERAL:?? Neatly dressed.?? Well groomed. HEAD:?? No evidence of trauma, tenderness or masses.?? EYES: ??PERRL.?? Full EOM.?? Funduscopic examgrossly normal.??ENT:?? Ears: Tympanic membranes are frias.?? Subjectively intact hearing.?? Nose: Mucosal membranes pink and moist.?? Septum is midline.?? Oral: No exudates.?? Teeth in good condition.?? No pharyngeal erythema.?? Neck: Range of motion consistent with patient's stated age body habitus. Trachea midline.?? LYMPH NODES:?? No cervical or femoral adenopathy.?? THYROID:?? No thyroid masses, tenderness or enlargement. HEART:?? Regular rate and rhythm.? No clicks, rubs or murmurs.?? LUNGS:?? Clear to auscultation.?? No palpable chest wall masses.?? ABDOMEN:?? Soft, nontender, bowel sounds present, no organomegaly.?? EXTREMITIES:?? No ankle edema. NEURO:?? Reflexes 2+ triceps, biceps, knees and ankles. MENTAL:?? Speech is of normal rate and volume, articulate, coherent, spontaneous with no notation ofabnormalities.?? Thought processes reveal intact abstract reasoning and computation.?? No loose tangential circumstantial thoughts.?? No hallucinations.?? No delusions.?? No preoccupation with violence.?? No homicidal or suicidal ideations.?? No ruminations.?? Excellent insight into situation and illness process.?? Oriented to person, place and time.?? Recent and remote memory are intact.?? Attentionspan and concentration are at baseline.?? Language and fund of knowledge suggest average intellect.?? Mood and affect reflect no evidence of depression, anxiety, agitation, hypomania or emotional lability.?? ASSESSMENT/PLAN 1. Major recurrent depression currently stable with evaluation planned for the near future 2. Hypothyroidism with recent stable evaluation 3. Mixed hyperlipidemia with evaluation plan for the near future 4. Overweight-slowly progressive 5. Personal history of nicotine dependence in remission 6. Restless leg syndrome currently stable 7. Stress/urge incontinence with evaluation in process Supportive measures discussed in detail. Recommend checking labs at her upcoming OBGYN appointment for which order is placed. Labs to be reviewed include CBC, basic metabolic profile, AST and lipid profile. Arrange for mammogram in the near future. Would be happy to give refills of labs are stable. Did discuss weaning but at this time patient will hold off and may reconsider next spring. Risks and benefits of medications discussed. All questions answered. Signs and symptoms to lead to emergent evaluation are reviewed. See the medication reconciliation and preventive services. She will consider her options. Spent 20 of the 35 minute visit in discussion. documented in this encounter Plan of Treatment Not on filedocumented as of this encounter Results BI Breast Screening Bilateral (11/01/2017 11:43 AM CDT) Anatomical Region Laterality Modality Breast, Breast Imaging RST LOS Bilateral Mammograp hy Specimen (Source) Anatomical Collection Method Collection Time Re ceived Time Location / / Volume Laterality 11/01/2017 1:31 PM CDT Impressions 11/01/2017 1:35 PM CDT IMPRESSION: ??Negative RECOMMENDATION: ??Annual Screening Mammo gram ASSESSMENT: ??BI-RADS: 1: Negative. Narrative 11/01/2017 1:35 PM CDT EXAM: ??BI BREAST SCREENING BILATERAL Current study was evaluated with a Compu ter Aided Detection (CAD) system. INDICATION: ??Screening mammogram. COMPARISON: ??Prior exams were available for comparison. DENSITY: ??c. The breast(s) are heteroge neously dense, which may obscure small masses. FINDINGS: ??No mammographic findings of malignancy. Procedure Note Tani Oseguera M.D. - 11/01/2017Forma tting of this note might be different from the original. EXAM: BI BREAST SCREENING BILATERAL Current study was evaluated with a Compu ter Aided Detection (CAD) system. INDICATION: Screening mammogram. COMPARISON: Prior exams were available f or comparison. DENSITY: c. The breast(s) are heterogene ously dense, which may obscure small masses. FINDINGS: No mammographic findings of ma lignancy. IMPRESSION: Negative RECOMMENDATION: Annual Screening Mammogr am ASSESSMENT: BI-RADS: 1: Negative. Danica England M.D. IM BI PROCEDURES (ABNORMAL) Lipid Panel (11/01/2017 9:10 AM CDT) P athologist Signature Cholesterol, 282 (H) mg/dL 11/01/2017 [facility] Total 11:32 AM [facility] [place] [employer] [employer] LAB Comment: ----REFERENCE VALUE---- Desirable: < 200 Borderline high: 200 - 239 High: > or = 240 Triglycerides 174 (H) mg/dL 11/01/2017 11:32 AM CDT [facility] [place] (by [email or web address] LAB Comment: ----REFERENCE VALUE---- Normal: <150 Borderline high: 150-199 High: 200-499 Very high: > or =500 Cholesterol, HDL, S 61 >=50 mg/dL 11/01/2017 11:32 AM [facility]- [place] (by [email or web address] LAB Calculated LDL 186 (H) mg/dL 11/01/2017 11:32 AM [facility] [employer] SYSTEM- [place] (by is[facility]ankur)[place] LAB Comment: ----REFERENCE VALUE---- Desirable: <100 Above Desirable: 100-129 Borderline high: 130-159 High: 160-189 Very high: > or =190 Cholesterol, Non-HDL, 221 (H) mg/dL 11/01/2017 11:32 A M [facility] Calculated T SYSTEM- [employer] SKYLAR Campbell Comment: ----REFERENCE VALUE---- Desirable: <130 Above Desirable: 130-159 Borderline high: 160-189 High: 190-219 Very high: > or =220 Specimen Anatomical Collection Method Collection Time Receive d Time (Source) Location / / Volume Laterality Blood (Blood, 11/01/2017 9:10 AM 11/02/19 18 Venous) CDT 10:57 AM CDT Danica England M.D. LAB BLOOD ADD-ON Performing Organization Address City/[facility]/ZIP [facility] Phon e Number [facility] [place] (by [employer])[facility] [address] [place] [id number] LAB AST (Aspartate Aminotransferase) (11/01/2017 9:10 AM CDT) Patholo gist Method Time Signature Aspartate 31 8 - 43 11/01/2017 [facility] Aminotransferase U/L 11:32 AM CDT [email or web address] (AST), S SYSTEM- [employer] LAB Specimen Anatomical Collection Method Collection Time Receive d Time (Source) Location / / Volume Laterality Blood (Blood, 11/01/2017 9:10 AM 11/02/19 18 Venous) CDT 10:57 AM CDT Danica England M.D. LAB BLOOD ADD-ON Performing Organization Address City/[facility]/ZIP [facility] Phon e Number [facility] [address] [place] [address] LAB CBC with Differential, Blood (11/01/2017 9:10 AM CDT) P athologist Signature Hemoglobin 13.6 11.6 - 11/01/2017 [facility] 15.0 g/dL 9:17 AM CDT [facility] LAB Hematocrit 41.5 35.5 - 11/01/2017 [facility] 44.9 % 9:17 AM CDT [email or web address] [facility] LAB Erythrocytes 4.49 3.92 - 11/01/2017 [facility] 5.13 9:17 AM CDT HEALTH x10(12)/L [facility] LAB MCV 92.4 78.2 - 11/01/2017 [facility] 97.9 fL 9:17 AM CDT [facility] RBC Distrib Width 13.9 12.2 - 11/01/2017 [facility] 16.1 % 9:17 AM CDT [facility] [place] [facility] Platelet Count 208 157 - 371 11/01/2017 [facility] x10(9)/L 9:17 AM CDT [facility] LAB Leukocytes 6.2 3.4 - 9.6 11/01/2017 [facility] x10(9)/L 9:17 AM CDT [facility] LAB Neutrophils 3.25 1.56 - 11/01/2017 [facility] 6.45 9:17 AM CDT HEALTH x10(9)/L SYSTEM- [facility]ITALPagaTodo MobileM[facility]CAL[facility] LAB Lymphocytes 2.30 0.95 - 11/01/2017 [facility] 3.07 9:17 AM CDT HEALTH x10(9)/L SYSTEM- [employer] LAB Monocytes 0.55 0.26 - 11/01/2017 [facility] 0.81 9:17 AM CDT HEALTH x10(9)/L SYSTEM- Serious [facility] Eosinophils 0.06 0.03 - 11/01/2017 [facility] 0.48 9:17 AM CDT HEALTH x10(9)/L SYSTEM- [place] [facility] Basophils 0.02 0.01 - 11/01/2017 [facility] 0.08 9:17 AM CDT [facility] x10(9)/L SYSTEMRUSSELLV[facility]OSPITALTran[facility] LAB Specimen Anatomical Collection Method Collection Time Receive d Time (Source) Location / / Volume Laterality Blood (Blood, 11/01/2017 9:10 AM 11/02/19 18 9:11 Venous) CDT AM CDT Danica England M.D. LAB BLOOD ADD-ON Performing Organization Address City/State/ZIP Code Phon e Number [facility] [address] [place] [address] [facility]- [address] [place] [address] [place] [address] [place], [place] [address] LAB BMP (Basic Metabolic Panel) (11/01/2017 9:10 AM CDT) P athologist Signature Potassium, S 4.6 3.6 - 5.2 11/01/2017 [facility] mmol/L 11:32 AM [facility] [place] [facility] Sodium, S 143 135 - 145 11/01/2017 [facility] mmol/L 11:32 AM [facility] [place] [facility] Chloride, S 104 98 - 107 11/01/2017 [facility] mmol/L 11:32 AM [facility] [place] [facility] Bicarbonate, S 27 22 - 29 11/01/2017 [facility] mmol/L 11:32 AM [facility] [place] (by [employer] LAB Anion Gap 12 7 - 15 11/01/2017 [facility] 11:32 AM [facility] [place] (by [facility] BUN (Blood Urea 19 6 - 21 11/01/2017 [facility] Nitrogen), S mg/dL 11:32 AM [facility] [place] (by [facility] LAB Creatinine 0.99 0.59 - 11/01/2017 [facility] 1.04 mg/dL 11:32 AM [facility] [place] (by [facility] LAB eGFR-Non 63 >=60 11/01/2017 [facility] Black/ mL/min/BSA 11:32 AM [facility] [place] [facility] [place] (by [facility] LAB Comment: ----ADDITIONAL INFORMATION---- Estimated GFR calculated using the 2009 CKD_EPI creatinine equation. eGFR-Black/ 73 >=60 mL/min/BSA 2017 11:32 AM [facility] [place] (by [employer] LAB Comment: ----ADDITIONAL INFORMATION---- Estimated GFR calculated using the 2009 CKD_EPI creatinine equation. Calcium, Total, S 9.4 8.6 - 10.0 mg/dL 11/01/2017 11:3 2 AM [facility] [place] (by [employer] Glucose, S 105 70 - 140 mg/dL 11/01/2017 11:32 AM [facility]- [place] (by [employer] LAB Specimen Anatomical Collection Method Collection Time Receive d Time (Source) Location / / Volume Laterality Blood (Blood, 11/01/2017 9:10 AM 11/02/19 18 Venous) CDT 10:57 AM CDT Danica England M.D. LAB BLOOD ADD-ON Performing Organization Address City/State/ZIP Code Phon e Number [facility]ENTERCephasonicsN[facility] [address] [place] [address] LAB documented in this encounter Visit Diagnoses Diagnosis Hypothyroidism - Primary Depression Major Recurrent (HCC) Hyperlipidemia Mixed Overweight Body Mass Index 25-29.9 Adult Personal History Of Nicotine Dependence Restless Leg Syndrome Routine Screening Breast Exam Incontinence Urinary Stress And Urge Routine Screening Breast Exam documented in this encounter Additional Health Concerns Assessment Noted Time PHQ-9 Depression Total Score: 1 09/25/2017 9:39 AM CDT documented as of this encounter Care Teams Product Sales Engineer Relationship Specialty Start Date End Date Danica England M.D. PCP - General 08/10/16 01/26/19 documented as of this encounter
--- OUTSIDE RECORDS SUMMARY | 2021-10-26 16:13 | XMS_ITS | Encounter Summary ---
:1960 Author Organization [facility] Address [address] [place] [address] Care Team Providers Name Role Phone Danica England M.D. Primary Care Provider Reason for Visit Reason Comments Med Refill Encounter Details Date Type Department Care Team Description 09/24/2017 Refill Department of Family Medicine, Danica ndiaye M.D. Med Refill [facility], in [address] [place] [address] [place] [address] [place] [address] [place] [address] [phone] Social History Tobacco Use Types Packs/Day Years [...] 12/11/2018 relatives? How often do you attend voodoo or hindu services? Patien t refused 12/11/2018 Do you belong to any clubs or organizations such as Patient refused 12/11/2018 voodoo groups, unions, fraternal or athletic groups, or [...] documented as of this encounter Care Teams Yarn Inspector Relationship Specialty Start Date End Date Danica England M.D. PCP - General 08/10/16 01/26/19 documented as of this encounter
--- OUTSIDE RECORDS SUMMARY | 2021-10-26 16:13 | XMS_ITS | Encounter Summary ---
:1960 Author Organization [facility] Address [address] [place] [address] Care Team Providers Name Role Phone Danica England M.D. Primary Care Provider Reason for Visit Reason Comments Med Refill Encounter Details Date Type Department Care Team Description 02/28/2018 Refill Department of Family Medicine, Danica ndiaye M.D. Med Refill [facility], in [facility] [place] [address] [place] [address] [place] [address] [phone] Social History Tobacco Use Types Packs/Day Years [...] 12/11/2018 relatives? How often do you attend orthodox or scientology services? Patien t refused 12/11/2018 Do you belong to any clubs or organizations such as Patient refused 12/11/2018 orthodox groups, unions, fraternal or athletic groups, [...] documented as of this encounter Care Teams Electrical Design Technician Relationship Specialty Start Date End Date Danica England M.D. PCP - General 08/10/16 01/26/19 documented as of this encounter
--- OUTSIDE RECORDS SUMMARY | 2021-10-26 16:13 | XMS_ITS | Encounter Summary ---
:1960 Author Organization [facility] Address [address] [place] [address] Care Team Providers Name Role Phone Danica England M.D. Primary Care Provider Reason for Visit Reason Comments Med Refill Encounter Details Date Type Department Care Team Description 01/30/2018 Refill Department of Family Medicine, Danica ndiaye M.D. Med Refill [facility], in [facility] [place] [address] [place] [address] [place] [address] [phone] Social History Tobacco Use Types Packs/Day Years [...] 12/11/2018 relatives? How often do you attend amish or gnosticism services? Patien t refused 12/11/2018 Do you belong to any clubs or organizations such as Patient refused 12/11/2018 amish groups, unions, fraternal or athletic groups, or [...] documented as of this encounter Care Teams Pets Salesperson Relationship Specialty Start Date End Date Danica England M.D. PCP - General 08/10/16 01/26/19 documented as of this encounter
--- OUTSIDE RECORDS SUMMARY | 2021-10-26 16:13 | XMS_ITS | Encounter Summary ---
:1960 Author Organization [facility] Address [address] [place] [address] Care Team Providers Name Role Phone Danica England M.D. Primary Care Provider Encounter Details Date Type Department Care Team Description 11/01/2017 Hospital Encounter Department of Danica England Major Recurrent (HCC); Laboratory Medicine Eva Faria Overweight Body Mass Index 25-29.9 Adult ; in [address] Restless Leg Syndrome; [place], [place] Personal History Of Nicotine Dependence; [address] [address] Hyperlipidemia Mixed [place], [place] [phone] [address] (Work) [phone] Social History Tobacco Use Types Packs/Day Years [...] 12/11/2018 relatives? How often do you attend scientology or zoroastrianism services? Patien t refused 12/11/2018 Do you belong to any clubs or organizations such as Patient refused 12/11/2018 scientology groups, unions, fraternal or athletic groups, or [...] Sig Dispensed Refills Start Date End Date melatonin 5 mg tablet Take by mouth. 0 sulfamethoxazole-trimetho Take 1 tablet by 10 tablet 0 09/201711/08/2017 prim (BACTRIM DS) 800-160 mouth every 12 mg per tablet (twelve) hours for 5 days. buPROPion (WELLBUTRIN SR) Take 1 tablet (200 180 tablet 3 11/05/2017 200 mg 12 hr tablet mg total) by mouth 2 (two) times a day. gabapentin (NEURONTIN) Take 3 capsules 90 capsule 0 10/09/19 18 11/05/2017 100 mg capsule (300 mg total) by mouth daily. Due for labs levothyroxine (SYNTHROID, Take 1 tablet (75 30 tablet 0 11/05/2017 LEVOTHROID) 75 mcg tablet mcg total) by mouth daily. Due for labs pravastatin (PRAVACHOL) Take 1 tablet (20 30 tablet 0 09/2411/05/2017 20 mg tablet mg total) by mouth at bedtime. Due for follow-up sertraline (ZOLOFT) 100 Take 2 tablets (200 60 tablet 0 11/05/2017 mg tablet mg total) by mouth daily. Due for labs documented as of this encounter Plan of Treatment Not on filedocumented as of this encounter Procedures Procedure Name Priority Date/Time Associated Diagnosis Comme nts LIPID PANEL, S Routine 11/01/2017 9:10 Hyperlipidemia Mixed Re sults for this AM CDT procedure are i n the results section. CBC WITH DIFFERENTIAL, Routine 11/01/2017 9:10 Depression Avril r Results for this B AM CDT Recurrent (HCC) procedure are in Personal History Of the resu lts Nicotine Dependence section. ASPARTATE Routine 11/01/2017 9:10 Depression Major Results for this AMINOTRANSFERASE (AST), AM CDT Recurren t (HCC) procedure are in S/P Hyperlipidemia Mixed the res ults section. BASIC METABOLIC PANEL, Routine 11/01/2017 9:10 Depression Avril r Results for this S/P AM CDT Recurrent (HCC) procedure are in Overweight Body Mass the res ults Index 25-29.9 Ad ult section. Restless Leg Syndrome documented in this encounter Results (ABNORMAL) Lipid Panel (11/01/2017 9:10 AM CDT) P athologist Signature Cholesterol, 282 (H) mg/dL 11/01/2017 [facility] Total 11:32 AM CDT [facility] Comment: ----REFERENCE VALUE---- Desirable: < 200 Borderline high: 200 - 239 High: > or = 240 Triglycerides 174 (H) mg/dL 11/01/2017 11:32 AM CDT [facility] Comment: ----REFERENCE VALUE---- Normal: <150 Borderline high: 150-199 High: 200-499 Very high: > or =500 Cholesterol, HDL, S 61 >=50 mg/dL 11/01/2017 11:32 AM [facility] Calculated LDL 186 (H) mg/dL 11/01/2017 11:32 AM [facility] Comment: ----REFERENCE VALUE---- Desirable: <100 Above Desirable: 100-129 Borderline high: 130-159 High: 160-189 Very high: > or =190 Cholesterol, Non-HDL, 221 (H) mg/dL 11/01/2017 11:32 A [facility] [place] [facility] Comment: ----REFERENCE VALUE---- Desirable: <130 Above Desirable: 130-159 Borderline high: 160-189 High: 190-219 Very high: > or =220 Specimen Anatomical Collection Method Collection Time Receive d Time (Source) Location / / Volume Laterality Blood (Blood, 11/01/2017 9:10 AM 11/02/19 18 Venous) CDT 10:57 AM CDT Danica England M.D. LAB BLOOD ADD-ON Performing Organization Address City/State/ZIP Code Phon e Number [facility] [address] [place] [address] LAB AST (Aspartate Aminotransferase) (11/01/2017 9:10 AM CDT) [facility] gist Method Time Signature Aspartate 31 8 - 43 11/01/2017 [facility] Aminotransferase U/L 11:32 AM CDT [facility] S [facility] Specimen Anatomical Collection Method Collection Time Receive d Time (Source) Location / / Volume Laterality Blood (Blood, 11/01/2017 9:10 AM 11/02/19 18 Venous) CDT 10:57 AM CDT Danica England M.D. LAB BLOOD ADD-ON Performing Organization Address City/[facility] Code Phon e Number [facility] [address] [place] [address] LAB CBC with Differential, Blood (11/01/2017 9:10 AM CDT) P athologist Signature Hemoglobin 13.6 11.6 - 11/01/2017 [facility] 15.0 g/dL 9:17 AM CDT [employer] [facility] Hematocrit 41.5 35.5 - 11/01/2017 [facility] 44.9 % 9:17 AM CDT [employer] [facility] Erythrocytes 4.49 3.92 - 11/01/2017 [facility] 5.13 9:17 AM CDT HEALTH x10(12)/L SYSTEM- [facility] LAB MCV 92.4 78.2 - 11/01/2017 [facility] 97.9 fL 9:17 AM CDT [employer] [facility] LAB RBC Distrib Width 13.9 12.2 - 11/01/2017 [facility] 16.1 % 9:17 AM CDT [facility]- [facility] LAB Platelet Count 208 157 - 371 11/01/2017 [facility] x10(9)/L 9:17 AM CDT [employer] [facility] LAB Leukocytes 6.2 3.4 - 9.6 11/01/2017 [facility] x10(9)/L 9:17 AM CDT [employer] LAB Neutrophils 3.25 1.56 - 11/01/2017 [facility] 6.45 9:17 AM CDT HEALTH x10(9)/L [facility]- [facility] Lymphocytes 2.30 0.95 - 11/01/2017 [facility] 3.07 9:17 AM CDT [facility]ALTH x10(9)/L [facility]- [facility] Monocytes 0.55 0.26 - 11/01/2017 [facility] 0.81 9:17 AM CDT HEALTH x10(9)/L [facility]- [facility] Eosinophils 0.06 0.03 - 11/01/2017 [facility] 0.48 9:17 AM CDT [facility]ALTH x10(9)/L [facility]- [facility] Basophils 0.02 0.01 - 11/01/2017 [facility] 0.08 9:17 AM CDT HEALTH x10(9)/L SYSTEM- [facility] LAB Specimen Anatomical Collection Method Collection Time Receive d Time (Source) Location / / Volume Laterality Blood (Blood, 11/01/2017 9:10 AM 11/02/19 18 9:11 Venous) CDT AM CDT Danica England M.D. LAB BLOOD ADD-ON Performing Organization Address City/State/ZIP Code Phon e Number [facility]- [address] [place] [address] [facility]- [address] [place], [place] [address] [place] [address] [place] [facility] BMP (Basic Metabolic Panel) (11/01/2017 9:10 AM CDT) athologist Signature Potassium, S 4.6 3.6 - 5.2 11/01/2017 [facility] mmol/L 11:32 AM [facility] [place] [facility] Sodium, S 143 135 - 145 11/01/2017 [facility] mmol/L 11:32 AM [facility] Chloride, S 104 98 - 107 11/01/2017 [facility] mmol/L 11:32 AM [facility] Bicarbonate, S 27 22 - 29 11/01/2017 [facility] mmol/L 11:32 AM [facility] Anion Gap 12 7 - 15 11/01/2017 [facility] 11:32 AM [facility] BUN (Blood Urea 19 6 - 21 11/01/2017 [facility] Nitrogen), S mg/dL 11:32 AM [facility] Creatinine 0.99 0.59 - 11/01/2017 [facility] 1.04 mg/dL 11:32 AM [facility] [place] [facility] eGFR-Non 63 >=60 11/01/2017 [facility] Black/ mL/min/BSA 11:[address] [facility] [employer] [facility] [place] [facility] Comment: ----ADDITIONAL INFORMATION---- Estimated GFR calculated using the 2009 CKD_EPI creatinine equation. eGFR-Black/ 73 >=60 mL/min/BSA 2017 11:32 AM [facility] [place] [facility] Comment: ----ADDITIONAL INFORMATION---- Estimated GFR calculated using the 2009 CKD_EPI creatinine equation. Calcium, Total, S 9.4 8.6 - 10.0 mg/dL 11/01/2017 11:3 2 AM [facility] [place] [facility] Glucose, S 105 70 - 140 mg/dL 11/01/2017 11:[address] [facility] CDT SYSTEM- [facility] Specimen Anatomical Collection Method Collection Time Receive d Time (Source) Location / / Volume Laterality Blood (Blood, 11/01/2017 9:10 AM 11/02/19 18 Venous) CDT 10:57 AM CDT Danica England M.D. LAB BLOOD ADD-ON Performing Organization Address City/State/ZIP Code Phon e Number [facility] [address] [place] [address] LAB documented in this encounter Visit Diagnoses Diagnosis Depression Major Recurrent (HCC) Overweight Body Mass Index 25-29.9 Adult Restless Leg Syndrome Personal History Of Nicotine Dependence Hyperlipidemia Mixed documented in this encounter Additional Health Concerns Assessment Noted Time PHQ-9 Depression Total Score: 1 09/25/2017 9:39 AM CDT documented as of this encounter Care Teams Head Of Cytogenetics Relationship Specialty Start Date End Date Danica England M.D. PCP - General 08/10/16 01/26/19 documented as of this encounter
--- OUTSIDE RECORDS SUMMARY | 2021-10-26 16:13 | XMS_ITS | Encounter Summary ---
:1960 Author Organization [facility] Address [address] [place] [address] Care Team Providers Name Role Phone Danica England M.D. Primary Care Provider Encounter Details Date Type Department Care Team Description 07/02/2017 Orders Only Department of Family Shelley England M.D. Medicine, [facility], [address] [place] [address] [place] [address] [place] [address] [place] [address] [phone] Social History Tobacco Use Types Packs/Day Years [...] How often do you attend hoahaoism or shinto services? Patien t refused 12/11/2018 [...] documented as of this encounter Care Teams Ceramic Painter Relationship Specialty Start Date End Date Danica England M.D. PCP - General 08/10/16 01/26/19 documented as of this encounter
--- OUTSIDE RECORDS SUMMARY | 2021-10-26 16:13 | XMS_ITS | Encounter Summary ---
:1960 Author Organization [facility] Address [address] [place] [address] Care Team Providers Name Role Phone Danica England M.D. Primary Care Provider Reason for Visit Reason Comments Med Refill Encounter Details Date Type Department Care Team Description 10/08/2017 Refill Department of Family Medicine, Danica ndiaye M.D. Med Refill [facility], in [facility] [place] [address] [place] [address] [place] [address] [phone] Social History Tobacco Use Types Packs/Day Years [...] How often do you attend hoahaoism or latter-day services? Patien t refused 12/11/2018 Do you [...] documented as of this encounter Care Teams Information Coder Relationship Specialty Start Date End Date Danica England M.D. PCP - General 08/10/16 01/26/19 documented as of this encounter
--- OUTSIDE RECORDS SUMMARY | 2021-10-26 16:13 | XMS_ITS | Encounter Summary ---
:1960 Author Organization [facility] Address [address] [place] [address] Care Team Providers Name Role Phone Danica England M.D. Primary Care Provider Reason for Visit Reason Comments Med Refill Encounter Details Date Type Department Care Team Description 07/02/2017 Refill Department of Family Medicine, Danica ndiaye M.D. Med Refill [facility], in [facility] [place] [address] [place] [address] [place] [address] [phone] Social History Tobacco Use Types Packs/Day Years [...] 12/11/2018 relatives? How often do you attend baptism or congregational services? Patien t refused 12/11/2018 Do you belong to any clubs or organizations such as Patient refused 12/11/2018 baptism groups, unions, fraternal or athletic groups, or [...] documented as of this encounter Care Teams Sales Outfitter Relationship Specialty Start Date End Date Danica England M.D. PCP - General 08/10/16 01/26/19 documented as of this encounter
--- OUTSIDE RECORDS SUMMARY | 2021-10-26 16:13 | XMS_ITS | Encounter Summary ---
:1960 Author Organization [facility] Address [address] [place] [address] Care Team Providers Name Role Phone Danica England M.D. Primary Care Provider Encounter Details Date Type Department Care Team Description 04/09/2018 Hospital Encounter Department of Dancia England, Pain Chest Wall Radiology in .[place], [place] 200 [facility] [address] [place] [id number] Social History Tobacco Use Types Packs/Day [...] 12/11/2018 relatives? How often do you attend baptist or spiritism services? Patien t refused 12/11/2018 Do you belong to any clubs or organizations such as Patient refused 12/11/2018 baptist groups, unions, fraternal or athletic groups, or [...] Take 1 tablet (200 180 tablet 3 201712/12/2018 SR) 200 mg 12 hr tablet mg total) by mouth 2 (two) times a day. gabapentin (NEURONTIN) Take 3 capsules (300 270 capsule 2 11/04/2018 100 mg capsule mg total) by mouth daily. levothyroxine Take 1 tablet (75 90 tablet 3 11/05/201710/27 (SYNTHROID, LEVOTHROID) mcg total) by mouth 75 mcg tablet daily. pravastatin (PRAVACHOL) Take 1 tablet (20 mg 90 tablet 0 06/04/2018 20 mg tablet total) by mouth at bedtime. A higher dose of medication would be advised sertraline (ZOLOFT) 100 Take 2 tablets (200 180 tablet 3 11/201710/11/2018 mg tablet mg total) by mouth daily. documented as of this encounter Plan of Treatment Not on filedocumented as of this encounter Procedures Procedure Name Priority Date/Time Associated Comments Diagnosis DX RIBS RIGHT 2 VIEWS RAD - Routine 04/09/2018 Pain Chest Wall Re sults for WITH CHEST (most inpatients 11:29 AM PHYSICAL THERAPY SUPERVISOR this proced ure POSTEROANTERIOR 1 VIEW and all are i n the outpatients) results section. documented in this encounter Results DX Ribs Right 2 Views with Chest Posteroanterior 1 View (04/09/2018 11:29 AM PHYSICAL THERAPY SUPERVISOR) Anatomical Region Laterality Modality Ribs, Chest, Musculoskeletal RST LOS, Musculoskeletal Right Digital Radiography ARZ LOS, Muskuloskeletal FLA LOS Specimen (Source) Anatomical Collection Method Collection Time Re ceived Time Location / / Volume Laterality 04/09/2018 12:38 PM PHYSICAL THERAPY SUPERVISOR Impressions 04/09/2018 12:41 PM PHYSICAL THERAPY SUPERVISOR IMPRESSION: Acute nondisplaced fracture of the right fifth rib laterally. The lungs are clear. No pneumothorax. Narrative 04/09/2018 12:41 PM PHYSICAL THERAPY SUPERVISOR EXAM: DX RIBS RIGHT 2 VIEWS WITH [...] documented in this encounter Visit Diagnoses Diagnosis Pain Chest Wall documented in this encounter Additional Health Concerns Assessment Noted Time PHQ-9 Depression Total Score: 1 09/25/2017 9:39 AM CDT documented as of this encounter Care Teams Home Health Aide Relationship Specialty Start Date End Date Danica England M.D. PCP - General 08/10/16 01/26/19 documented as of this encounter
--- OUTSIDE RECORDS SUMMARY | 2021-10-26 16:13 | XMS_ITS | Encounter Summary ---
:1960 Author Organization [facility] Address [address] [place] [address] Care Team Providers Name Role Phone Danica England M.D. Primary Care Provider Reason for Visit Reason Comments Gynecologic Exam Pelvic exam and pap smear Urinary Incontinence Stress Appointment Request (Routine) - Closed Specialty Diagnoses / Procedures Referred By Contact Refer red To Contact Obstetrics and Gynecology Referral ID Status Reason Start Date Expiration Date Visits Requ ested Visits Authorized [id number] Closed 09/24/2017 09/24/2018 1 1 Encounter Details Date Type Department Care Team Description 11/01/2017 Comprehensive Visit Department of Elder Lemus Urinary Stress Female (Primary Dx); Obstetrics and Jarod, Pap Smear Exa mination Gynecology in [place], [place] [address] [place] [id number] Social History Tobacco Use Types Packs/Day Years [...] How often do you attend caodaism or latter day services? Patien t refused [...] Sign Reading Time Taken Comments Blood Pressure 82/60 11/01/2017 9:34 AM CDT Pulse 56 11/01/2017 9:34 AM CDT Temperature - - Respiratory Rate 14 11/01/2017 9:34 AM CDT Oxygen Saturation - - Inhaled Oxygen Concentration - - Weight 72.7 kg (160 lb 6.2 oz) 11/01/2017 9:34 AM CDT Height 165 cm (5' 4.96) 11/01/2017 9:34 AM CDT Body Mass Index 26.72 11/01/2017 9:34 AM CDT documented in this encounter Consult Notes Jarod Lemus M.D. - 11/01/2017 9:45 AM CDT ELECTRIC MOTOR MECHANIC CONSULT NOTE REASON FOR VISIT Patient was seen in consultation at the request of her primary provider, Danica England MD, for urinary incontinence. HISTORY OF PRESENT ILLNESS 57 y.o. female who presents in consultation for leakage of urine. This has been going on forquite some time. She has had worsening leakage of urine. She can wear a pad, and that takes care of it. Initially, it only occurred during intercourse. Now she has it if she yells really loud or strains to pick something up. She does not have urgency symptoms. When she sits down to void, it takes a while for her stream to start. Her urine stream is not slow, but it does stop sometimes and starts again. This is new in the last 6 months, and it requires her to sit for longer than usual. She feels likeshe empties completely, but she often has to go again shortly after she just went. She voids normal a mone, and she drinks a lot of water. Current Outpatient Prescriptions on File Prior to Visit Medication Sig Dispense Refill ??? buPROPion (WELLBUTRIN SR) 200 mg 12 hr tablet Take 1 tablet (200 mg total) by mouth 2 (two) times a day. 180 tablet 3 ??? gabapentin (NEURONTIN) 100 mg capsule Take 3 capsules (300 mg total) by mouth daily. Due for labs 90 capsule 0 ??? levothyroxine (SYNTHROID, LEVOTHROID) 75 mcg tablet Take 1 tablet (75 mcg total) by mouth daily.Due for labs 30 tablet 0 ??? melatonin 5 mg tablet Take by mouth. ??? pravastatin (PRAVACHOL) 20 mg tablet Take 1 tablet (20 mg total) by mouth at bedtime. Due for follow-up 30 tablet 0 ??? sertraline (ZOLOFT) 100 mg tablet Take 2 tablets (200 mg total) by mouth daily. Due for labs 60 tablet 0 No current facility-administered medications on file prior to visit. Allergies Allergen Reactions ??? Codeine Other (see comments) Mood changes and several other symptoms. REVIEW OF SYSTEMS: General: No fever, chills, fatigue, unintentional weight loss, or weight gain HEENT: No sore throat, nasal congestion, changes in vision or changes in hearing Cardiovascular: No chest pain, irregular heartbeat or racing heart Respiratory: No shortness of breath, cough, or wheezing Gastrointestinal: No nausea, vomiting, diarrhea, constipation or abdominal pain Genitourinary: + leaking urine and gas, No pain with urination, burning with urination, irregular vaginal bleeding, heavy periods, painful periods, abnormal vaginal discharge or leaking stool Skin: No rashes or skin lesions Breasts: No masses or lumps, or discharge from the nipples Neuro: No difficulty with memory, numbness, tingling, or falls Psych: No anxiety, + depression, No difficulty sleeping Endocrine: No excessive thirst, hair loss, intolerance of heat or cold Past Medical History: Diagnosis Date ??? Depression Major Recurrent (HCC) ??? Gastroesophageal Reflux Disease ??? Hyperlipidemia Mixed ??? Nicotine Dependence Cigarettes In Remission Quit cigarettes 2013 quit E cigarettes 2014 ??? Osteopenia ??? Overweight Body Mass Index 25-29.9 Adult ??? Periodontal Disease Resolved with dentures Past Surgical History: Procedure Laterality Date ??? KNEE ARTHROSCOPY Left 1976 Residual pain BUTTON SEWER HAND HISTORY OB History Para Term AB Living 5 5 4 1 5 SAB TAB Ectopic Molar Multiple Live Births 5 # Outcome Date GA Lbr Marin/2nd Weight Sex Delivery Anes PTL Lv 5 1980 35w0d F Vag-Spont JAZMYNE 4 Term Vag-Spont JAZMYNE 3 Term Vag-Spont JAZMYNE 2 Term Vag-Spont JAZMYNE 1 Term Vag-Spont JAZMYNE Menarche was at age 15. Menopause was at age 33. Menses were regular. She has not has bleeding sincemenopause. She is sexually active and has no issues with intercourse. Social History Social History ??? Marital status: Spouse name: N/A ??? Number of children: N/A ??? Years of education: N/A Occupational History ??? Not on file. Social History Main Topics ??? Smoking status: Former Smoker ??? Smokeless tobacco: Never Used ??? Alcohol use No ??? Drug use: No ??? Sexual activity: Yes Partners: Male Comment: No history of STDs or abnormal pap smears. Other Topics Concern ??? Not on file Social History Narrative ??? No narrative on file Family History Problem Relation Age of Onset ??? Schizophrenia Mother ??? Diabetes mellitus - adult onset Mother ??? Hypothyroidism Sister ??? Hypothyroidism Maternal Grandmother ??? Menieres disease Maternal Grandmother ??? Lung cancer Maternal Grandfather Smoker ??? No Known Problems Paternal Grandmother ??? Cancer Paternal Grandfather ??? Bipolar Aunt ??? Depression Daughter ??? Depression Daughter ??? Depression Daughter PHYSICAL EXAM Vitals: 11/01/17 0934 BP: (!) 82/60 Pulse: (!) 56 Resp: 14 Height: 165 cm Weight: 72.7 kg General: Well-nourished female in no acute distress Head: Normocephalic, atraumatic ENT: Vision and hearing grossly intact Heart: Regular rate and rhythm, no murmurs, rubs or gallops Chest: Clear to auscultation bilaterally, no wheezes or rales, breathing nonlabored Abdomen: Soft, nondistended, nontender, normoactive bowel sounds, no masses palpable, no rebound or guarding Pelvic exam: External genitalia without lesions or abnormalities, bulbocavernosus and anal wink reflexes absent bilaterally, sensation is not intact to differentiate light touch from pinprick on the perineum, normal pubic hair distribution, urethral meatus normal in appearance and without masses, there is no urethral hypermobility noted in the dorsal supine position and no leakage of urine noted in that position, there is mild urethral hypermobility noted with the patient erect and a small amount ofleakage of urine noted in this position, vaginal mucosa is pink and moist with a small amount of thin, clear discharge present in the posterior vaginal fornix, cervix appears parous and is without gross lesions or abnormalities, POP-Q: Aa -1, Ba -1, C -4, tvl 7, Ap -2, Bp -2, on bimanual examination, the bladder and urethra are nontender, there is no cervical motion or uterine tenderness to palpation, the uterus is normal in size and nontender, no adnexal masses or tenderness are noted Lower extremities: Nontender, no edema Skin: No rashes or lesions Neuro: Alert and oriented x3 IMPRESSION/PLAN: 57 y.o. female who presents in consultation for likely stress urinary incontinence. 1. Urinary incontinence: This is likely stress urinary incontinence. The patient has symptoms consistent with this. When she is erect, she has leakage of urine and urethral hypermobility noted. We discussed options for management of the symptoms including pelvic floor physical therapy, use of Poise Impressa inserts, or surgical management with a mid urethral sling. We discussed the risks and benefitsof each. At this point, the patient would like to proceed with physical therapy and use of the PoiseImpressa inserts. We discussed that if she sees results but her symptoms are not as adequately managed she would like, we could consider use of vaginal estrogen in addition to these things. Urine culture will also be obtained today to exclude infectious etiologies for her symptoms. Postvoid residual was obtained and was 0. We discussed that if her symptoms are not well managed with these options, we can always proceed with surgical management with placement of a mid urethral sling. However, I would plan simple cystometry in the office prior to proceeding with that, considering absence of the bulbocavernosus and anal wink reflexes and abnormal sensation throughout the perineum, to exclude other etiologies of her symptoms prior to placement of a sling. 2. Preventative services: Patient is due for a Pap smear at this time. A sample for cytology and HPVcode testing was collected today. 3. Follow up: The patient will be in touch with us in several months to let us know how she is doingwith this. documented in this encounter Miscellaneous Notes Addendum Note - Jarod Lemus M.D. - 11/01/2017 9:45 AM CDT Addended by: JAROD LEMUS on: 11/03/2017 03:41 PM Modules accepted: Orders Addendum Note - Jarod Lemus M.D. - 11/01/2017 9:45 AM CDT Addended by: JAROD LEMUS on: 11/08/2017 12:56 PM Modules accepted: Orders documented in this encounter Plan of Treatment Not on filedocumented as of this encounter Procedures Procedure Name Priority Date/Time Associated Diagnosis Comme nts BACTERIAL CULTURE, Routine 11/01/2017 12:23 Incontinence Urina ry Results for this AEROBIC + SUSC, PM CDT Stress Female procedure a re in URINE the results section. THINPREP W/HPV Routine 11/01/2017 12:20 Pap Smear Examination Results for this CO-TEST SCREEN PM CDT procedure are in the results section. HPV WITH Routine 11/01/2017 12:20 Results for this GENOTYPING, PCR, PM CDT procedure a re in THINPREP the results section. documented in this encounter Results (ABNORMAL) Bacterial Culture, Aerobic + Susc, Urine (11/01/2017 12:23 PM CDT) [facility] gist Method Time Signature Bacterial ESCHERICHIA COLI 11/03/2017 [facility] Culture, 10,000-100,000 cfu/mL 8:18 AM CDT HEALTH Aerobic, (A) SYSTEM- Urine [facility] Specimen Anatomical Collection Method Collection Time Receive d Time (Source) Location / / Volume Laterality Urine (Urine, 11/01/2017 12:23 11/01/2017 Midstream) PM CDT 11:28 PM CDT Comment: Specimen Source Site: Urine Organism Antibiotic Method Susceptibility Escherichia coli Ampicillin SUSCEPTIBILITY, 4 mcg/mL: Susce ptible FANG (MCG/ML) Escherichia coli Ampicillin + Sulbactam SUSCEPTIBILITY, <=2 mcg/ mL: Susceptible FANG (MCG/ML) Escherichia coli Piperacillin + Tazobactam SUSCEPTIBILITY, <=4 m cg/mL: Susceptible FANG (MCG/ML) Escherichia coli Cefazolin SUSCEPTIBILITY, <=4 mcg/mL: Laine ceptible FANG (MCG/ML) Escherichia coli Ceftazidime SUSCEPTIBILITY, <=1 mcg/mL: Laine ceptible FANG (MCG/ML) Escherichia coli Ceftriaxone SUSCEPTIBILITY, <=1 mcg/mL: Laine ceptible FANG (MCG/ML) Escherichia coli Cefepime SUSCEPTIBILITY, <=1 mcg/mL: Laine ceptible FANG (MCG/ML) Escherichia coli Aztreonam SUSCEPTIBILITY, <=1 mcg/mL: Laine ceptible FANG (MCG/ML) Escherichia coli Ertapenem SUSCEPTIBILITY, <=0.5 mcg/mL: FANG (MCG/ML) Susceptible Escherichia coli Meropenem SUSCEPTIBILITY, <=0.25 mcg/mL: FANG (MCG/ML) Susceptible Escherichia coli Gentamicin SUSCEPTIBILITY, <=1 mcg/mL: Laine ceptible FANG (MCG/ML) Escherichia coli Tobramycin SUSCEPTIBILITY, <=1 mcg/mL: Laine ceptible FANG (MCG/ML) Escherichia coli Levofloxacin SUSCEPTIBILITY, <=0.12 mcg/mL: FANG (MCG/ML) Susceptible Escherichia coli Nitrofurantoin SUSCEPTIBILITY, <=16 mcg/mL: Echavarria sceptible FANG (MCG/ML) Escherichia coli Trimethoprim + SUSCEPTIBILITY, <=20 mcg/mL: Echavarria sceptible Sulfamethoxazole FANG (MCG/ML) Jarod Lemus M.D. LAB MICROBIOLOGY - GENERAL O RDERABLES Performing Organization Address City/State/ZIP Code Phon e Number [address] [address] LAB (ABNORMAL) HPV with Genotyping, PCR, ThinPrep (11/01/2017 12:20 PM CDT) [facility] Method Time Signature HPV with Positive (A) Negative 11/06/2017 [facility] Genotyping, 9:50 PM CDT HEALTH ThinPrep, [facility] Comment: Positive for high risk HPV by nucleic ac id amplification. Positive for one or more of the following high risk types: 16, 18, 31, 33, 35, 39, 45, 51, 52, 56, 58, 59, 66, and 68. See genotyping result. HPV High Risk type Negative Negative 11/06/2017 9:50 PM CD T [facility] 16, PCR SYSTEM- [facility] HPV High Risk type Negative Negative 11/06/2017 9:50 PM CD T [facility] 18/45, [facility] Specimen Anatomical Collection Method Collection Time Receive d Time (Source) Location / / Volume Laterality Varies 11/01/2017 12:20 11/02/2017 8:16 PM CDT AM CDT Jarod Lemus M.D. LAB MICROBIOLOGY - GENERAL O RDERABLES Performing Organization Address City/State/[place] [address] LAB ThinPrep w/HPV Co-Test Screen (11/01/2017 12:20 PM CDT) Component Value Ref Test Analysis Performed Pathologis t Range Method Time At Signature 11/07/2017 [facility] 7:23 AM [facility] CDT [facility] Report JARED Tariq(ASCP) 11/07/2017 [facility] electronically I verify that I have examined all relevant slides/ma terials 7:23 AM HEALTH signed by for the specimen(s) and rendered or confirmed the diagnosi s. CDT [facility] Gross Description Received specimen 11/07/2017 [facility] in a ThinPrep 7:23 AM HEALTH vial. CDT [facility] [place] [facility] Pap Test Source Cervical/Endocervi 11/07/2017 [facility] mahesh 7:23 AM HEALTH CDT [facility] [facility] Clinical History Screening 11/07/2017 [facility] 7:23 AM HEALTH CDT [facility] [facility] Menstrual PM 11/07/2017 [facility] Status(LMP, PM, 7:23 AM HEALTH ) CDT [facility] [place] [facility] Hormone None/Not known 11/07/2017 [facility] Therapy/Contracep 7:23 AM HEALTH tives CDT [facility] [facility] Interpretation Cervical/Endocervical ??(ThinPrep): 11/07/2017 [facility] Satisfactory for Evaluation 7:23 AM HE ALTH Negative for Intraepithelial Lesion or Malignancy CDT SYSTEM- High Risk HPV Testing results are POSITIVE. [place] HPV with Genotyping, PCR ThinPrep: CYTOLOGY HPV High Risk Type 16, PCR: NEGATIVE HPV High Risk Type 18/45, PCR: NEGATIVE Other High Risk HPV types include: 31, 33, 35, 39, 51, 52, 56, 58, 59, 66, 68 Additional testing performed at [facility], [address] [place] [address]. Specimen Anatomical Collection Method Collection Time Receive d Time (Source) Location / / Volume Laterality Varies 11/01/2017 12:20 11/02/2017 8:16 (Cervix/Endocerv PM CDT AM CDT ix) Narrative This result has an attachment that is no t available. Jarod Lemus M.D. LAB PAP PATHDX ORDERABLES Performing Organization Address City/State/ZIP Code Phon e Number [place] [id number] [place] [address] CYTOLOGY documented in this encounter Visit Diagnoses Diagnosis Incontinence Urinary Stress Female - [facility] micki Pap Smear Examination documented in this encounter Additional Health Concerns Assessment Noted Time PHQ-9 Depression Total Score: 1 09/25/2017 9:39 AM CDT documented as of this encounter Care Teams Dairy Farm Worker Relationship Specialty Start Date End Date Danica England M.D. PCP - General 08/10/16 01/26/19 documented as of this encounter
--- OUTSIDE RECORDS SUMMARY | 2021-10-26 16:13 | XMS_ITS | Encounter Summary ---
:[address] [facility] Address [address] [place] [address] Care Team Providers Name Role Phone Danica England M.D. Primary Care Provider Encounter Details Date Type Department Care Team Description 11/01/2017 Orders Only Department of Family Shelley England M.D. Medicine, [facility], [address] [place] [address] [place] [address] [place] [address] [place] [address] [phone] Social History Tobacco Use Types Packs/Day Years [...] 12/11/2018 relatives? How often do you attend confucianist or congregation services? Patien t refused 12/11/2018 Do you belong to any clubs or organizations such as Patient refused 12/11/2018 confucianist groups, unions, fraternal or athletic groups, or [...] documented as of this encounter Care Teams Residential Solar Sales Consultant Relationship Specialty Start Date End Date Danica England M.D. PCP - General 08/10/16 01/26/19 documented as of this encounter
--- OUTSIDE RECORDS SUMMARY | 2021-10-26 16:13 | XMS_ITS | Encounter Summary ---
:1960 Author Organization [facility] Address [address] [place] [address] Care Team Providers Name Role Phone Danica England M.D. Primary Care Provider Reason for Visit Reason Comments Med Refill Encounter Details Date Type Department Care Team Description 10/11/2018 Refill Department of Family Medicine, Danica ndiaye M.D. Med Refill [facility], in [facility] [place] [address] [place] [address] [place] [address] [phone] Social History Tobacco Use Types Packs/Day Years [...] 12/11/2018 relatives? How often do you attend pentecostalism or jain services? Patien t refused 12/11/2018 Do you belong to any clubs or organizations such as Patient refused 12/11/2018 pentecostalism groups, unions, fraternal or athletic groups, or [...] documented as of this encounter Care Teams Pharmaceutical Scientist Relationship Specialty Start Date End Date Danica England M.D. PCP - General 08/10/16 01/26/19 documented as of this encounter
--- OUTSIDE RECORDS SUMMARY | 2021-10-26 16:13 | XMS_ITS | Encounter Summary ---
:1960 Author Organization [facility] Address [address] [place] [address] Care Team Providers Name Role Phone Danica England M.D. Primary Care Provider Reason for Visit Reason Comments Med Refill Encounter Details Date Type Department Care Team Description 11/08/2018 Refill Department of Family Medicine, Danica ndiaye M.D. Med Refill [facility], in [facility] [place] [address] [place] [address] [place] [address] [phone] Social History Tobacco Use Types Packs/Day Years [...] 12/11/2018 relatives? How often do you attend restorationist or mandaen services? Patien t refused 12/11/2018 Do you belong to any clubs or organizations such as Patient refused 12/11/2018 restorationist groups, unions, fraternal or athletic groups, or [...] documented as of this encounter Care Teams Telecommunications Network Engineer Relationship Specialty Start Date End Date Danica England M.D. PCP - General 08/10/16 01/26/19 documented as of this encounter
--- OUTSIDE RECORDS SUMMARY | 2021-10-26 16:13 | XMS_ITS | Encounter Summary ---
:1960 Author Organization [facility] Address [address] [place] [address] Care Team Providers Name Role Phone Danica England M.D. Primary Care Provider Reason for Visit Reason Comments Med Refill Encounter Details Date Type Department Care Team Description 10/08/2017 Refill Department of Family Medicine, Danica ndiaye M.D. Med Refill [facility], in [facility] [place] [address] [place] [address] [place] [address] [phone] Social History Tobacco Use Types Packs/Day Years [...] How often do you attend voodoo or episcopal services? Patien t refused 12/11/2018 [...] documented as of this encounter Care Teams Saddle Stitching Machine Operator Relationship Specialty Start Date End Date Danica England M.D. PCP - General 08/10/16 01/26/19 documented as of this encounter
--- OUTSIDE RECORDS SUMMARY | 2021-10-26 16:13 | XMS_ITS | Encounter Summary ---
:1960 Author Organization [facility] Address [address] [place] [address] Care Team Providers Name Role Phone Danica England M.D. Primary Care Provider Encounter Details Date Type Department Care Team Description 01/25/2017 Orders Only Department of Family Danica England, Beto osure Surveillance Medicine, Larry Velasquez Exam (Primary Dx) Clinic, in [address] [phone] [address] (Work) [phone] Social History Tobacco Use Types Packs/Day Years [...] 12/11/2018 relatives? How often do you attend jain or methodist services? Patien t refused 12/11/2018 Do you belong to any clubs or organizations such as Patient refused 12/11/2018 jain groups, unions, fraternal or athletic groups, or [...] as of this encounter Visit Diagnoses Diagnosis Exposure Surveillance Exam - Primary documented in this encounter Additional Health Concerns Assessment Noted Time PHQ-9 Depression Total Score: 3 07/13/2016 12:46 PM CD T documented as of this encounter Care Teams Voltage Regulator Assembler Relationship Specialty Start Date End Date Danica England M.D. PCP - General 08/10/16 01/26/19 documented as of this encounter
--- OUTSIDE RECORDS SUMMARY | 2021-10-26 16:13 | XMS_ITS | Encounter Summary ---
:1960 Author Organization [facility] Address [address] [place] [address] Care Team Providers Name Role Phone Danica England M.D. Primary Care Provider Reason for Visit Reason Comments Med Refill Encounter Details Date Type Department Care Team Description 11/10/2018 Refill Department of Family Medicine, Danica ndiaye M.D. Med Refill [facility], in [facility] [place] [address] [place] [address] [place] [address] [phone] Social History Tobacco Use Types Packs/Day Years [...] How often do you attend hoahaoism or adventist services? Patien t refused 12/11/2018 [...] this encounter Miscellaneous Notes Telephone Encounter - Libby Damon - 11/11/2018 12:42 PM CDT Patient was requested to follow up. documented in this encounter Plan of Treatment Not on filedocumented as of this encounter Visit Diagnoses Not on filedocumented in this encounter Additional Health Concerns Assessment Noted Time PHQ-9 Depression Total Score: 1 09/25/2017 9:39 AM CDT documented as of this encounter Care Teams Banking Representative Relationship Specialty Start Date End Date Danica England M.D. PCP - General 08/10/16 01/26/19 documented as of this encounter
--- OUTSIDE RECORDS SUMMARY | 2021-10-26 16:13 | XMS_ITS | Encounter Summary ---
:1960 Author Organization [facility] Address [address] [place] [address] Care Team Providers Name Role Phone Danica England M.D. Primary Care Provider Reason for Visit Reason Comments Med Refill Encounter Details Date Type Department Care Team Description 11/04/2018 Refill Department of Family Medicine, Danica ndiaye M.D. Med Refill [facility], in [facility] [place] [address] [place] [address] [place] [address] [phone] Social History Tobacco Use Types Packs/Day Years [...] How often do you attend baptism or anabaptist services? Patien t refused 12/11/2018 Do you [...] documented as of this encounter Care Teams Professor Of Spanish Relationship Specialty Start Date End Date Danica England M.D. PCP - General 08/10/16 01/26/19 documented as of this encounter
--- OUTSIDE RECORDS SUMMARY | 2021-10-26 16:13 | XMS_ITS | Encounter Summary ---
:1960 Author Organization [facility] Address [address] [place] [address] Care Team Providers Name Role Phone Danica England M.D. Primary Care Provider Reason for Visit Reason Comments Med Refill Encounter Details Date Type Department Care Team Description 09/10/2017 Refill Department of Family Medicine, Danica ndiaye M.D. Med Refill [facility], in [facility] [place] [address] [place] [address] [place] [address] [phone] Social History Tobacco Use Types Packs/Day Years [...] How often do you attend jew or adventist services? Patien t refused 12/11/2018 [...] documented as of this encounter Care Teams Pull Socket Assembler Relationship Specialty Start Date End Date Danica England M.D. PCP - General 08/10/16 01/26/19 documented as of this encounter
--- OUTSIDE RECORDS SUMMARY | 2021-10-26 16:13 | XMS_ITS | Encounter Summary ---
:1960 Author Organization [facility] Address [address] [place] [address] Care Team Providers Name Role Phone Danica England M.D. Primary Care Provider Reason for Visit Reason Comments Med Refill Encounter Details Date Type Department Care Team Description 09/03/2017 Refill Department of Family Medicine, Danica ndiaye M.D. Med Refill [facility], in [facility] [place] [place] [address] [place] [address] [place] [address] [phone] Social History Tobacco Use Types Packs/Day Years [...] often do you attend latter day or anglican services? Patien t refused 12/11/2018 Do you [...] documented as of this encounter Care Teams Executive Marketing Assistant Relationship Specialty Start Date End Date Danica England M.D. PCP - General 08/10/16 01/26/19 documented as of this encounter
--- OUTSIDE RECORDS SUMMARY | 2021-10-26 16:13 | XMS_ITS | Encounter Summary ---
:1960 Author Organization [facility] Address [address] [place] [address] Care Team Providers Name Role Phone Danica England M.D. Primary Care Provider Reason for Visit Reason Comments Med Refill Encounter Details Date Type Department Care Team Description 11/05/2017 Refill Department of Family Medicine, Danica ndiaye M.D. Med Refill [facility], in [facility] [place] [address] [place] [address] [place] [address] [phone] Social History Tobacco Use Types Packs/Day Years [...] How often do you attend baptist or orthodox services? Patien t refused 12/11/2018 Do [...] as of this encounter Care Teams Senior Premium Auditor Relationship Specialty Start Date End Date Danica England M.D. PCP - General 08/10/16 01/26/19 documented as of this encounter
--- OUTSIDE RECORDS SUMMARY | 2021-10-26 16:13 | XMS_ITS | Encounter Summary ---
:1960 Author Organization [facility] Address [address] [place] [address] Care Team Providers Name Role Phone Danica England M.D. Primary Care Provider Reason for Visit Reason Onset Date Comments return call 04/09/2018 Encounter Details Date Type Department Care Team Description 04/09/2018 Clinical Communication Department of [facility] [place], return call [facility], [facility], [address] [place] [address] [place], [place] [phone] [address] (Work) [phone] Social History Tobacco Use Types Packs/Day Years [...] How often do you attend jew or mosque services? Patien t refused 12/11/2018 Do you [...] this encounter Miscellaneous Notes Telephone Encounter - Chago Tompkins - 04/09/2018 1:12 PM CST PT returning call. Informed patient that the referral was sent to [facility]. Anything else needed to relay- please call [phone]. OLOGY ASSISTANT Telephone Encounter - Eileen Galeano L.P.N. - 04/09/2018 1:03 PM CST SUBJECTIVE CHIEF COMPLAINT / REASON FOR CALL No chief complaint on file. Patient is requesting the following information: Attempted to reach patient to notify her that a referral has been faxed to [facility] . Left a message to return call. PLAN The following information was provided : Noted above Information: not applicable The following references were used: provider Dr. Pretty OLOGY ASSISTANT documented in this encounter Plan of Treatment Not on filedocumented as of this encounter Visit Diagnoses Not on filedocumented in this encounter Additional Health Concerns Assessment Noted Time PHQ-9 Depression Total Score: 1 09/25/2017 9:39 AM CDT documented as of this encounter Care Teams Silver Buffer Relationship Specialty Start Date End Date Danica England M.D. PCP - General 08/10/16 01/26/19 documented as of this encounter
--- OUTSIDE RECORDS SUMMARY | 2021-10-26 16:13 | XMS_ITS | Encounter Summary ---
:1960 Author Organization [facility] Address [address] [place] [address] Care Team Providers Name Role Phone Danica England M.D. Primary Care Provider Encounter Details Date Type Department Care Team Description 09/24/2017 Orders Only Department of Family Shelley England M.D. Medicine, [facility], [facility] State [facility] [place] [address] [place] [address] [place] [address] [phone] Social History Tobacco Use Types Packs/Day Years [...] 12/11/2018 relatives? How often do you attend quaker or shinto services? Patien t refused 12/11/2018 Do you belong to any clubs or organizations such as Patient refused 12/11/2018 quaker groups, unions, fraternal or athletic groups, or [...] documented as of this encounter Care Teams Briefcase Sewer Relationship Specialty Start Date End Date Danica England M.D. PCP - General 08/10/16 01/26/19 documented as of this encounter
--- OUTSIDE RECORDS SUMMARY | 2021-10-26 16:13 | XMS_ITS | Encounter Summary ---
:1960 Author Organization [facility] Address [address] [place] [address] Care Team Providers Name Role Phone Danica England M.D. Primary Care Provider Encounter Details Date Type Department Care Team Description 09/03/2017 Orders Only Department of Family Shelley England M.D. Medicine, [facility], [address] [place] [address] [place] [address] [place] [address] [place] [address] [phone] Social History Tobacco Use Types Packs/Day Years [...] How often do you attend jain or alevism services? Patien t refused 12/11/2018 Do you [...] documented as of this encounter Care Teams Chief Of Staff Doctor Relationship Specialty Start Date End Date Danica England M.D. PCP - General 08/10/16 01/26/19 documented as of this encounter
--- OUTSIDE RECORDS SUMMARY | 2021-10-26 16:13 | XMS_ITS | Encounter Summary ---
:1960 Author Organization [facility] Address [address] [place] [address] Care Team Providers Name Role Phone Danica England M.D. Primary Care Provider Reason for Visit Reason Comments Med Refill Encounter Details Date Type Department Care Team Description 01/07/2018 Refill Department of Family Medicine, Danica ndiaye M.D. Med Refill [facility], in [facility] [place] [address] [place] [address] [place] [address] [phone] Social History Tobacco Use Types Packs/Day Years [...] 12/11/2018 relatives? How often do you attend congregation or baptist services? Patien t refused 12/11/2018 Do you belong to any clubs or organizations such as Patient refused 12/11/2018 congregation groups, unions, fraternal or athletic groups, or [...] documented as of this encounter Care Teams Template Cutter Relationship Specialty Start Date End Date Danica England M.D. PCP - General 08/10/16 01/26/19 documented as of this encounter
--- OUTSIDE RECORDS SUMMARY | 2021-10-26 16:13 | XMS_ITS | Encounter Summary ---
:1960 Author Organization [facility] Address [address] [place] [address] Care Team Providers Name Role Phone Danica England M.D. Primary Care Provider Encounter Details Date Type Department Care Team Description 06/04/2017 Orders Only Department of Family Danica England Scr eening Mammogram Medicine, [facility], in [address] (Primary Dx) [place], [place] [address] [address] [place], [place] [phone] [address] (Work) [phone] Social History Tobacco Use Types Packs/Day Years [...] How often do you attend buddhist or confucianist services? Patien t refused 12/11/2018 [...] this encounter Visit Diagnoses Diagnosis Screening Mammogram Average Risk Patient - Primary documented in this encounter Additional Health Concerns Assessment Noted Time PHQ-9 Depression Total Score: 3 07/13/2016 12:46 PM CD T documented as of this encounter Care Teams Policy Officer Relationship Specialty Start Date End Date Danica England M.D. PCP - General 08/10/16 01/26/19 documented as of this encounter
--- OUTSIDE RECORDS SUMMARY | 2021-10-26 16:13 | XMS_ITS | Encounter Summary ---
:1960 Author Organization [facility] Address [address] [place] [address] Care Team Providers Name Role Phone Danica England M.D. Primary Care Provider Encounter Details Date Type Department Care Team Description 11/01/2017 Hospital Encounter Department of Danica England Routine Screening Radiology in [place] [facility] Breast Exam [address] [place] [address] Social History Tobacco Use Types Packs/Day [...] How often do you attend pentecostalism or taoist services? Patien t refused 12/11/2018 Do you [...] Comments Diagnosis BI BREAST RAD - Routine 11/01/2017 11:43 Routine Screening Resul ts for this SCREENING (most inpatients AM CDT [...] BILATERAL Current study was evaluated with a Mingyian Aided Detection (CAD) system. INDICATION: ??Screening mammogram. COMPARISON: ??Prior exams were available for comparison. DENSITY: ??c. The breast(s) are heteroge neously dense, which may obscure small masses. FINDINGS: ??No mammographic findings of malignancy. Procedure Note Tani Oseguera M.D. - 11/01/2017Forma tting of this note might be different from the original. EXAM: BI BREAST SCREENING BILATERAL Current study was evaluated with a Mingyian Aided Detection (CAD) system. INDICATION: Screening mammogram. [...] as of this encounter Care Teams Emergency Room Registered Nurse Relationship Specialty Start Date End Date Danica England M.D. PCP - General 08/10/16 01/26/19 documented as of this encounter
--- OUTSIDE RECORDS SUMMARY | 2021-10-26 16:14 | XMS_ITS | Encounter Summary ---
:[address] [facility] Address [address] [place] [address] Care Team Providers Name Role Phone Unavailable Primary Care Provider Unavailable Encounter Details Date Type Department Care Team Description 12/15/2014 Hospital Encounter HX [facility] Ayden England M.D. [address] [place] [address] (Wo rk) Social History Tobacco Use Types Packs/Day Years Used Date Smoking Tobacco: Never Assessed Alcohol Habits Answer Date Recorded How often [...] How often do you attend voodoo or restorationist services? Patien t refused 12/11/2018 Do you [...] Sign Reading Time Taken Comments Blood Pressure 110/70 12/15/2014 10:46 AM CDT Pulse 76 12/15/2014 10:46 AM CDT Temperature - - Respiratory Rate 12 12/15/2014 10:46 AM CDT Oxygen Saturation - - Inhaled Oxygen Concentration - - Weight 74.5 kg (164 lb 3.9 oz) 12/15/2014 10:46 AM CDT Height 166 cm (5' 5.35) 12/15/2014 10:34 AM CDT Body Mass Index 27.04 12/15/2014 10:34 AM CDT documented in this encounter Progress Notes Danica England M.D. - 12/15/2014 10:31 AM CDT [id number] CHIEF COMPLAINT/REASON FOR VISIT Several issues. HISTORY OF PRESENT ILLNESS A 54-year-old female presents to clinic to discuss her cholesterol medication. She did not actually take the pravastatin due to some family issues but now she would be willing to try the product. She has not been sleeping as well and she is waking up more fatigued. Is having increasing migraines and symptoms of her legs moving at night. [place] her mood was doing very well during the summer and it is only over the last few weeks that these symptoms have reoccurred. She is having more pain in her fingers. Does have osteoarthritis. Did have premature menopause and wonders if there are any treatments andwhat type of exercise would be the best. EMR reviewed. MEDICATIONS 1. Sertraline 200 mg daily increased 06/05/2013. 2. Bupropion 200 mg orally twice per day. 3. Pravastatin 20 mg daily. Prescription given 12/15/2014. 4. Ibuprofen 200 mg 3 tablets at bedtime. Not at this time. 5. Gabapentin 100 mg titrating up to a 300 mg at bedtime. Prescription given 12/15/2014. PREVENTATIVE SERVICES Tobacco: Quit smoking cigarettes in 2013. Quit using e-cigarette since 07/27/2014. Mammogram: 02/23/2010, advised. Pap smear: 07/27/2014. Colon screen: 01/14/[address] Marquis. Recheck plan for 10 years. Depression: Yes. PHQ-9 score 4. Asthma: No. Lipids: 09/02/2014. Tetanus: 2006. Pneumovax non applicable due to age. Influenza: Declined. DEXA scan: 02/23/2010. VITAL SIGNS Weight 74.5 kg. Temperature 36.4, respiratory 12, pulse 76, systolic 110, diastolic 70. PHYSICAL EXAMINATION GENERAL: Neatly dressed, well groomed. HEENT: Head: No evidence of trauma, tenderness, masses. Ears: TMs are frias. Good visualization of landmarks. Nose: Mucosal membranes are pink and moist. Oral: No exudates. NECK: Range of motion consistent with patient's stated age, body habitus. Trachea midline. LYMPH NODES: No cervical adenopathy. THYROID: No masses, tenderness, or enlargement. LUNGS: Clear to auscultation. CARDIOVASCULAR: Regular rate and rhythm. EXTREMITIES: Hands: Some degenerative changes are noted but range of motion is full. MENTAL: Oriented x3 and at patient's baseline. IMPRESSION/REPORT/PLAN 1. Dysthymia, currently stable. 2. Hyperlipidemia. 3. Degenerative joint disease. PLAN: Risks and benefits of medications discussed. All questions answered. Signs and symptoms to lead to urgent evaluation are reviewed. Please see the medication reconciliation and the preventive services. She is comfortable with this plan and will follow up if any change occurs or as noted. Danica England M.D./melodie Electronically Signed By: DANICA ENGLAND MD On: 12/18/2014 04:09 PM Modified by and Electronically Signed by: DANICA ENGLAND MD On: 12/18/2014 04:09 PM Source: [facility] [id number] Document Id: [id number] documented in this encounter Miscellaneous Notes Miscellaneous - Danica England M.D. - 12/15/2014 1:09 PM CDT Ambulatory Patient Summary [address] [id number] Visit Information Name: GEMA JAUREGUI [facility] Number: [id number] Current Date: 12/15/2014 13:09:17 Physicians Attending Provider: DANICA ENGLAND MD Primary Care Provider: DANICA ENGLAND MD GEMA JAUREGUI has been given the following list of follow-up instructions, medication list, and patient education materials: Follow-up Instructions Your Medications Here is a list of your medications. It is important to take your medications as directed. Use a pillbox or chart to help remind you to take your medications. Please let your doctor or nurse know if you have problems taking your medications. Medication/Strength How to Take Indications/Special Instructions/Comments/Notes for Patient Medication Changes/Routing buPROPion (buPROPion SR 200 mg/12 hour oral sustained release tablet) 1 Tablet(s), Oral, two times aday correct amount gabapentin (gabapentin 100 mg oral capsule) See Instructions 1 cap(s) PO at bedtime for 7 days, increase to 2 caps at bedtime for 7 days then 3 caps at bedtime New Routed to [facility] [place], [place] [id number] melatonin (Melatonin 5 mg oral tablet) See Instructions 2 tab(s) PO Bedtime pravastatin (pravastatin 20 mg oral tablet) 1 Tablet(s), Oral, once a day (at bedtime) recheck labs in 10 days, if stable continue medication and recheck labs fasting in 2 months Routed to [facility] [place] [address] sertraline (sertraline 100 mg oral tablet) 2 Tablet(s), Oral, once a day Stop Taking the Following Medications: Medication list as of 12-15-14 13:09 Attention: If you have any medications at home that are not on this list, DO NOT take them until youcontact your provider for clarification. Give a copy of your medication list to your primary care provider. Update your medication list any time medications or doses are changed and carry your medication list at all times in case of emergency. Electronically Signed By: ADNICA ENGLAND MD Signed On:15-DEC-2014 13:09:07 Your Allergies & Intolerances Substance Reaction Symptoms Category Comments codeine Drug Your Problem List Problem Status Onset Comments Dysthymic Disorder Active Premature menopause Active 03/12/1994 Osteopenia Active 07/11/2003 02/21/10 DEXA; 02/23/10 02/23/2010 low normal DEXA Hyperlipidemia Active Restless legs Active Overweight Active DJD (OA) NOS Active Your Upcoming Appointments Date Time Location Provider No Appointments found Attention: Contact your local Clinic if further appointment detail needed. Consider Using Patient Online Services Patient Online Services is a secure online and Mobile application that lets you: ?? View lab and test results ?? View portions of your medical record including clinical notes, immunizations and discharge summaries ?? Request an appointment or medication refill ?? Review your appointment schedule ?? Send secure messages to your care team Its easy to create an account if you dont have one. Go to [email or web address] and click on Create Your Account. Then, follow the directions to complete the online form. Youll be asked for your [facility] number which you can find at the top of this document. Your Goals/Additional instructions: Source: [facility] POWERCHART Document Id: [id number] Miscellaneous - Danica England M.D. - 12/15/2014 1:09 PM CDT Ambulatory Discharge Medication List [address] [place] [id number] Visit Information Name: GEMA JAUREGUI [facility] Number: [id number] Visit Date: 12/15/2014 13:09:15 Attending Provider: DANICA ENGLAND MD Primary Care Provider: DANICA ENGLAND MD GEMA JAUREGUI has been given the following list of medications: Your Medications It is important to take your medications as directed. Use a pill box or chart to help remind you to take your medications. Please let your doctor or nurse know if you have problems taking your medications. Medication/Strength How to Take Indications/Special Instructions/Comments/Notes for Patient Medication Changes/Routing buPROPion (buPROPion SR 200 mg/12 hour oral sustained release tablet) 1 Tablet(s), Oral, two times aday correct amount gabapentin (gabapentin 100 mg oral capsule) See Instructions 1 cap(s) PO at bedtime for 7 days, increase to 2 caps at bedtime for 7 days then 3 caps at bedtime New Routed to [facility] [place] [address] melatonin (Melatonin 5 mg oral tablet) See Instructions 2 tab(s) PO Bedtime pravastatin (pravastatin 20 mg oral tablet) 1 Tablet(s), Oral, once a day (at bedtime) recheck labs in 10 days, if stable continue medication and recheck labs fasting in 2 months Routed to [facility] [place] [address] sertraline (sertraline 100 mg oral tablet) 2 Tablet(s), Oral, once a day Stop Taking the Following Medications: Medication list as of 12-15-14 13:09 Attention: If you have any medications at home that are not on this list, DO NOT take them until youcontact your provider for clarification. Give a copy of your medication list to your primary care provider. Update your medication list any time medications or doses are changed and carry your medication list at all times in case of emergency. Electronically Signed By: DANICA ENGLAND MD Signed On:15-DEC-2014 13:09:07 Additional Information: Source: [facility] 5 O'Clock RecordsCHART Document Id: [id number] Miscellaneous - Dominick Bradley LBrigitteP.N. - 12/15/2014 10:46 AM CDT Adult Warble Saw Operator Intake/History Adult Warble Saw Operator Intake/History Entered On: 12/15/2014 10:47 CDT Performed On: 12/15/2014 10:46 CDT by DOMINICK BRADLEY LPN Intake Chief Complaint : follow up Temperature Core : 36.4 DegC(Converted to: 97.5 DegF) (LOW) Peripheral Pulse Rate : 76 /min Respiratory Rate : 12 /min (LOW) Systolic Blood Pressure : 110 mmHg Diastolic Blood Pressure : 70 mmHg NIBP Mean : 83 mmHg BP Location : Left upper extremity Blood Pressure Cuff Size : Regular Actual Weight : 74.5 kg(Converted to: 164 lb 4 oz) Dosing Weight Clinic : 74.5 kg DOMINICK BRADLEY LPN - 12/15/2014 10:46 CDT General Info Languages : Maltese Is Patient Female and 13-50 no hysterectomy : No DOMINICK BRADLEY LPN - 12/15/2014 10:46 CDT Subjective Pain Symptoms : No DOMINICK BRADLEY LPN - 12/15/2014 10:46 CDT Dependent Habits Tobacco Use/Currently Using : No Tobacco Use/Last 12 months : No Exposure to Tobacco Smoke : Other: former Smoking Status : Former smoker DOMINICK BRADLEY LPN - 12/15/2014 10:46 CDT Source: [facility] 5 O'Clock RecordsCHART Document Id: [id number] CDT!23 documented in this encounter Plan of Treatment Not on filedocumented as of this encounter Visit Diagnoses Not on filedocumented in this encounter Additional Health Concerns Assessment Noted Time PHQ-9 Depression Total Score: 4 07/27/2014 12:26 PM CD T documented as of this encounter
--- OUTSIDE RECORDS SUMMARY | 2021-10-26 16:14 | XMS_ITS | Encounter Summary ---
:1960 Author Organization [facility] Address [address] [place] [address] Care Team Providers Name Role Phone Unavailable Primary Care Provider Unavailable Encounter Details Date Type Department Care Team Description 06/06/2016 Hospital Encounter HX [facility] FAMILYPRA Leila Hirsch, DISTRICT GAUGER, C.N.P. [address] [place], [place] [phone] (Wo rk) Social History Tobacco Use Types [...] How often do you attend jew or advent services? Patien t refused 12/11/2018 [...] Sign Reading Time Taken Comments Blood Pressure 108/72 06/06/2016 1:04 PM CDT Pulse 64 06/06/2016 1:04 PM CDT Temperature - - Respiratory Rate 16 06/06/2016 1:04 PM CDT Oxygen Saturation - - Inhaled Oxygen Concentration - - Weight 77.2 kg (170 lb 3.1 oz) 06/06/2016 1:04 PM CDT Height 165 cm (5' 4.96) 06/06/2016 1:04 PM CDT Body Mass Index 28.36 06/06/2016 1:04 PM CDT documented in this encounter H&P Notes Leila Hirsch, WAYNE, C.N.P. - 06/06/2016 1:53 PM CDT Clinic Full Note CHIEF COMPLAINT/REASON FOR VISIT Physical- Wants to review medication. Feels like she something in her throat for about 3 weeks. Bothers more at night when laying down. Having more hot flashes and more intense. HISTORY OF PRESENT ILLNESS Antonina is here for healthcare maintenance exam. She has depression and anxiety, currently stable on bupropion and sertraline. She refills. PHQ-9 score today 4. She has hyperlipidemia, several years agoissue was on pravastatin. Pravastatin was discontinued when she was having problems with depression and there were multiple medication changes. She is not fasting today for lab, will have her return for fasting lipids. She is postmenopausal. She has been having some hot flashes. She was on hormone replacement therapy for many years. Will check TSH today. MEDICATIONS buPROPion SR 200 mg/12 hour oral sustained release tablet, 200 mg, 1 tab(s), needs follow up, PO, 2xDay, 0 refills gabapentin 100 mg oral capsule, 300 mg, 3 cap(s), needs follow up, PO, Daily, 0 refills Melatonin 5 mg oral tablet, See Instructions, 2 tab(s) PO Bedtime sertraline 100 mg oral tablet, 200 mg, 2 tab(s), needs follow up, PO, Daily, 0 refills ALLERGIES codeine PAST MEDICAL HISTORY Chronic Depression Anxiety DJD (OA) NOS Hyperlipidemia Osteopenia Overweight Pain in knee Personal History of Tobacco Use Premature menopause < age 40 Restless legs Tobacco dependence Historical Aggressive Periodontitis, Generalized Chest pain, unspecified. PROCEDURES/SURGICAL HISTORY Colonoscopy, flexible, proximal to splenic flexure; diagnostic, with or without collection of specimen(s) by brushing or washing, with or without colon decompression (separate procedure).. (01/14/2013), Echocardiogram (07/07/2010), Arthroscopy of knee (03/12/1976), Vaginal delivery following previous section. SOCIAL HISTORY Date Time: 06/06/2016 13:04 Tobacco: Smoking Status: Former smoker Exposure: Other: former Alcohol: Use: No Recreational Drugs: Use: No Results Found Type: No Results Found FAMILY HISTORY Mother:Positive: Schizophrenia HEALTH MAINTENANCE Up to date. SYSTEMS REVIEW GENERAL: No weight gain, no weight loss, no fever in past month, no chills, sweats, no fatigue EENT: No blurred vision, no double vision, no eye pain, no sinus problems, no hoarseness, no difficulty swallowing, no mouth sores, no diminished hearing, no ringing in ears, no enlarged glands PULMONARY: No shortness of breath, no cough, no wheezing, no sputum, no hemoptysis CARDIAC: No valve problems, no Chest pain, no Chest pressure, no rapid beating, no irregular beating, no dependent edema, pain in calves or with walking, no difficulty moving arms and legs GI: No heartburn, no nausea, no vomiting, no stomach trouble, no constipation, no diarrhea, no blood in BM, no change in BM BREAST: No lumps of breast, no nipple discharge, no pain in breast : No vaginal discharge, no burning/pain with urination, no difficulty starting stream, no difficulty emptying bladder, no excessive urination MUSCULOSKELETAL: No joint pain, no joint swelling, no joint stiffness, no muscle pain, no muscle stiffness, no back pain, no back stiffness SKIN: No skin rashes, no skin sores, no change in moles NEURO: No significant headaches, no slurred speech, no seizures, no dizziness, no loss of consciousness, no memory loss ENDOCRINE: No excessive thirst, no excessive bruising VITAL SIGNS T: 36.2 ??C (Core) HR: 64 RR: 16 BP: 108 / 72 HT: 165 cm WT: 77.20 kg BMI: 28.36 PHYSICAL EXAMINATION GENERAL: In general, the patient is a pleasant female who appears her stated age. SKIN: Without lesion. EYES: PERRLA. EOMI intact. Fundi sharp discs. Conjunctiva and lids normal. ENT: Tympanic membranes clear bilaterally. Nasal mucosa without erythema or congestion. Mouth without erythema or exudate. LYMPH NODES: Neck: Supple without adenopathy, no thyromegaly. Carotid pulses are equal bilaterally. BREASTS: No skin or nipple retraction. No palpable mass. No axillary adenopathy. No nipple discharge. PERIPHERAL VESSELS: Femoral, dorsal, pedal and posterior tibial pulses are equal. HEART: Regular rate and rhythm without murmur. LUNGS: Clear to auscultation, good inspiratory effort. ABDOMEN: Soft, nontender, no palpable mass, no hepatosplenomegaly. GENITALIA: Bartholin, urethra, vagina without lesion. Bimanual examination reveals no masses or tenderness in the uterine or adnexal areas. SPINE: Normal range of motion. No CVA tenderness. JOINTS: Normal range of motion. EXTREMITIES: Warm, dry, no cyanosis or peripheral edema. MENTAL: Alert and oriented times three. NEUROLOGIC: Deep tendon reflexes are +2 and symmetrical. LAB RESULTS CBC, BMP, TSH, Lipids and AST are pending. DIAGNOSTIC RESULTS Mammogram is pending. IMPRESSION/REPORT/PLAN Anxiety Generalized Disorder Stable on sertraline 200 milligrams daily. Refill provided. Ordered: OV Est Pt Level 3 - 81129 - 15 min Depression Major Recurrent Moderate Stable on bupropion SR 200 milligrams, 1 twice daily. PHQ-9 score today 4. Ordered: OV Est Pt Level 3 - 04494 - 15 min Encounter for screening mammogram for malignant neoplasm of breast Ordered: MA Mammo Screening w/ CADD OV Est Pt Prev 40-64 - 24158 General Medical Exam Adult (GME) Continue to work on healthy diet and regular exercise program. I will mail laboratory results. Return for complete physical exam and mammogram in one year. Ordered: OV Est Pt Prev 40-64 - 40854 Hyperlipidemia Mixed She will return for fasting lipids. Will discuss return to statin therapy if indicated. Ordered: OV Est Pt Level 3 - 04505 - 15 min Iron Deficiency Anemia Screening Exam Ordered: OV Est Pt Prev 40-64 - 72451 Screening Exam Diabetes Mellitus Ordered: OV Est Pt Prev 40-64 - 10020 Screening Exam For Thyroid Disorder Ordered: OV Est Pt Prev 40-64 - 76219 Orders: buPROPion, 200 mg = 1 tab(s), PO, 2xDay, do not chew or break tablets, # 60 each, 5 Refill(s), Pharmacy: [facility] [id number] gabapentin, 300 mg = 3 cap(s), PO, Daily, # 90 each, 5 Refill(s), Maintenance, Pharmacy: [facility] [address] sertraline, 200 mg = 2 tab(s), PO, Daily, # 60 each, 5 Refill(s), Maintenance, Pharmacy: [facility] [address] AST Basic Metabolic Panel, Fasting* CBC (includes Auto Differential) Lipid Panel* Return Visit Fam Med Extended Thyroid Stimulating Hormone Electronically Signed By: LEILA HIRSCH APRN, CNP On: 06/06/2016 02:00 PM Source: [facility] POWERCHART Document Id: [id number] documented in this encounter Nursing Notes Leila Hirsch APRN, C.N.P. - 06/06/2016 1:29 PM CDT Ambulatory Patient Education The following Patient Education Materials have been given to the patient: Patient Education Materials: Health Promotion Prevention Guidelines, Women Ages 50 to 64 Health Promotion Prevention Guidelines, Women Ages 50 to 64 Screening tests and vaccines are an important part of managing your health. Health counseling is essential, too. Below are guidelines for these, for women ages 50 to 64. Talk with your health care provider to make sure youre up to date on what you need. Screening Who needs it How often Alcohol misuse All women in this age group At routine exams Blood pressure All women in this age group Every 2 years if your blood pressure is less than 120/80 mm Hg; yearly if your systolic blood pressure is 120 to 139 mm Hg, or your diastolic blood pressure reading is 80 to 89 mm Hg Breast cancer All women in this age group Yearly mammogram and clinical breast exam Cervical cancer All women in this age group, except women who have had a complete hysterectomy A Paptest plus an HPV test every 5 years Chlamydia Women at increased risk for infection At routine exams Colorectal cancer All women in this age group Flexible sigmoidoscopy every 5 years, or colonoscopy every 10 years, or double-contrast barium enema every 5 years; yearly fecal occult blood test or fecalimmunochemical test; or a stool DNA test as often as your health care provider advises; talk with your health care provider about which tests are best for you Depression All women in this age group At routine exams Diabetes mellitus, type 2 Women who have blood pressure higher than 135/80 mm Hg At least every 3 years Gonorrhea Sexually active women at increased risk for infection At routine exams High cholesterol or triglycerides All women in this age group who are at risk for coronary artery disease At least every 5 years HIV Women at increased risk for infection - talk with your health care provider At routine exams Obesity All women in this age group At routine exams Osteoporosis Women who are postmenopausal Ask your health care provider Syphilis Women at increased risk for infection - talk with your health care provider At routine exams Tuberculosis Women at increased risk for infection - talk with your health care provider Ask your health care provider Vision All women in this age group Ask your health care provider Vaccine Who needs it How often Chickenpox (varicella) All women in this age group who have no record of this infection or vaccine 2doses; the second dose should be given at least 4 weeks after the first dose Hepatitis A Women at increased risk for infection - talk with your health care provider 2 doses given at least 6 months apart Hepatitis B Women at increased risk for infection - talk with your health care provider 3 doses over6 months; second dose should be given 1 month after the first dose; the third dose should be given at least 2 months after the second dose and at least 4 months after the first dose Influenza (flu) All women in this age group Once a year Measles, mumps, rubella (MMR) All women in this age group who have no record of these infections or vaccines 1 dose Meningococcal Women at increased risk for infection - talk with your health care provider 1 or more doses Pneumococcal (polysaccharide) Women at increased risk for infection - talk with your health care provider 1 or more doses Tetanus/diphtheria/pertussis (Td/Tdap) booster All women in this age group Td every 10 years, or a one-time dose of Tdap instead of a Td booster after age 18, then Td every 10 years Zoster All women ages 60 and older 1 dose Counseling Who needs it How often BRCA gene mutation testing for breast and ovarian cancer susceptibility Women with increased risk for having gene mutation When your risk is known Breast cancer and chemoprevention Women at high risk for breast cancer When your risk is known Diet and exercise Women with high cholesterol or triglycerides, or other risk factors for cardiovascular or chronic disease affected by diet or exercise When diagnosed, and then at routine exams Use of daily aspirin Women ages 55 and up in this age group who are at risk for cardiovascular health problems such as stroke When your risk is known Use of tobacco and the health affects it can cause All women in this age group Every visit ?? 7535-3358 [facility], [address] [place] [address], [place] [address]. All rights reserved. This information is not intended as a substitute for professional medical care. Always follow your healthcare professional's instructions. Source: [facility] POWERCHART Document Id: [id number] documented in this encounter Miscellaneous Notes Miscellaneous - Beucler, Meri M, L.P.N. - 06/06/2016 1:31 PM CDT PHQ-9 PHQ-9 Entered On: 06/06/2016 13:31 CDT Performed On: 06/06/2016 13:31 CDT by MERI MORATAYA LPN PHQ-9 Little interest or pleasure in doing things : Several days Feeling down, depressed, or hopeless : Not at all Trouble falling or staying asleep, or sleeping too much : Several days Feeling tired or having little energy : Several days Poor appetite or overeating : Several days Feeling bad about yourself or that you are a failure : Not at all Trouble concentrating on things : Not at all Moving or speaking slowly; restless or fidgety : Not at all Thoughts that you would be better off /hurting self : Not at all PHQ-9 Calculated Score : 4 Problems make work, home, or dealing with others : Somewhat difficult MERI MORATAYA LPN - 06/06/2016 13:31 CDT Source: [employer] Document Id: [id number] CDT!13 Miscellaneous - Leila Hirsch APRN, JavierNBrigitteP. - 06/06/2016 1:29 PM CDT Ambulatory Patient Summary [facility] [address] [place] [id number] Visit Information Name: ANTONINA JAUREGUI [facility] Number: [id number] Current Date: 06/06/2016 13:29:34 Physicians Attending Provider: LEILA HIRSCH APRN [facility] Primary Care Provider: MELINDA REYES MD ANTONINA JAUREGUI has been given the following list [...] tablet) 1 Tablet(s), Oral, two times aday do not chew or break tablets This is a CHANGE Routed to [facility] [address] [place], [place] [phone] gabapentin (gabapentin 100 mg oral capsule) 3 cap, Oral, once a day Routed to [facility] [address] [place], [place] [phone] melatonin (Melatonin 5 mg oral tablet) See Instructions 2 tab(s) PO Bedtime sertraline (sertraline 100 mg oral tablet) 2 Tablet(s), Oral, once a day Routed to [facility] [address] [place], [place] [phone] Stop Taking the Following Medications: Medication list as of 06-06-16 13:29 Attention: If you have any medications at home that are not on this list, DO NOT take them until youcontact your provider for clarification. Give a copy of your medication list to your primary care provider. Update your medication list any time medications or doses are changed and carry your medication list at all times in case of emergency. Electronically Signed By: LEILA HIRSCH APRN, CNP Signed On:06-JUN-2016 13:29:12 Your Allergies & Intolerances Substance Reaction Symptoms Category Comments codeine Drug Your Problem List Problem Status Onset Comments Dysthymic Disorder Active Premature menopause Active 03/12/1994 Osteopenia Active 07/11/2003 02/21/10 DEXA; 02/23/10 02/23/2010 low normal DEXA Hyperlipidemia Active Restless legs Active Overweight Active DJD (OA) NOS Active Depression Anxiety Active Your Upcoming Appointments Date Time Location Provider No Appointments found Attention: Contact your local Clinic if further appointment detail needed. Prevention Guidelines, Women Ages 50 to 64 Screening tests and vaccines are an important part of managing your health. Health counseling is essential, too. Below are guidelines for these, for women ages 50 to 64. Talk with your health care provider to make sure youre up to date on what you need. Screening Who needs it How often Alcohol misuse All women in this age group At routine exams Blood pressure All women in this age group Every 2 years if your blood pressure is less than 120/80 mm Hg; yearly if your systolic blood pressure is 120 to 139 mm Hg, or your diastolic blood pressure reading is 80 to 89 mm Hg Breast cancer All women in this age group Yearly mammogram and clinical breast exam Cervical cancer All women in this age group, except women who have had a complete hysterectomy A Paptest plus an HPV test every 5 years Chlamydia Women at increased risk for infection At routine exams Colorectal cancer All women in this age group Flexible sigmoidoscopy every 5 years, or colonoscopy every 10 years, or double-contrast barium enema every 5 years; yearly fecal occult blood test or fecalimmunochemical test; or a stool DNA test as often as your health care provider advises; talk with your health care provider about which tests are best for you Depression All women in this age group At routine exams Diabetes mellitus, type 2 Women who have blood pressure higher than 135/80 mm Hg At least every 3 years Gonorrhea Sexually active women at increased risk for infection At routine exams High cholesterol or triglycerides All women in this age group who are at risk for coronary artery disease At least every 5 years HIV Women at increased risk for infection -- talk with your health care provider At routine exams Obesity All women in this age group At routine exams Osteoporosis Women who are postmenopausal Ask your health care provider Syphilis Women at increased risk for infection -- talk with your health care provider At routine exams Tuberculosis Women at increased risk for infection -- talk with your health care provider Ask your health care provider Vision All women in this age group Ask your health care provider Vaccine Who needs it How often Chickenpox (varicella) All women in this age group who have no record of this infection or vaccine 2doses; the second dose should be given at least 4 weeks after the first dose Hepatitis A Women at increased risk for infection -- talk with your health care provider 2 doses given at least 6 months apart Hepatitis B Women at increased risk for infection -- talk with your health care provider 3 doses over 6 months; second dose should be given 1 month after the first dose; the third dose should be given at least 2 months after the second dose and at least 4 months after the first dose Influenza (flu) All women in this age group Once a year Measles, mumps, rubella (MMR) All women in this age group who have no record of these infections or vaccines 1 dose Meningococcal Women at increased risk for infection -- talk with your health care provider 1 or moredoses Pneumococcal (polysaccharide) Women at increased risk for infection -- talk with your health care provider 1 or more doses Tetanus/diphtheria/pertussis (Td/Tdap) booster All women in this age group Td every 10 years, or a one-time dose of Tdap instead of a Td booster after age 18, then Td every 10 years Zoster All women ages 60 and older 1 dose Counseling Who needs it How often BRCA gene mutation testing for breast and ovarian cancer susceptibility Women with increased risk for having gene mutation When your risk is known Breast cancer and chemoprevention Women at high risk for breast cancer When your risk is known Diet and exercise Women with high cholesterol or triglycerides, or other risk factors for cardiovascular or chronic disease affected by diet or exercise When diagnosed, and then at routine exams Use of daily aspirin Women ages 55 and up in this age group who are at risk for cardiovascular health problems such as stroke When your risk is known Use of tobacco and the health affects it can cause All women in this age group Every visit ?? 4723-4921 [place] [address]. All rights reserved. This information is not intended as a substitute for professional medical care. Always follow your healthcare professional's instructions. Consider Using Patient Online Services Patient Online [...] if you dont have one. Go to [email or web address] and click on Create Your Account. Then, follow the directions to complete the online form. Youll be asked for your [facility] number which you can find at the top of this document. Your Goals/Additional instructions: Source: [facility] POWERCHART Document Id: [id number] Miscellaneous - Leila Hirsch APRN, C.N.P. - 06/06/2016 1:29 PM CDT Ambulatory Discharge Medication List [address] [id number] Visit Information Name: ANTONINA JAUREGUI [facility] Number: [id number] Current Date: 06/06/2016 13:29:34 Attending Provider: LEILA HIRSCH APRN, CNP Primary Care Provider: MELINDA REYES MD ANTONINA JAUREGUI has been given the following list [...] tablet) 1 Tablet(s), Oral, two times aday do not chew or break tablets This is a CHANGE Routed to [facility] [address] [place], [place] [phone] gabapentin (gabapentin 100 mg oral capsule) 3 cap, Oral, once a day Routed to [facility] [address], [place] [phone] melatonin (Melatonin 5 mg oral tablet) See Instructions 2 tab(s) PO Bedtime sertraline (sertraline 100 mg oral tablet) 2 Tablet(s), Oral, once a day Routed to [facility] [address] [place], [place] [phone] Stop Taking the Following Medications: Medication list as of 06-06-16 13:29 Attention: If you have any medications at home that are not on this list, DO NOT take them until youcontact your provider for clarification. Give a copy of your medication list to your primary care provider. Update your medication list any time medications or doses are changed and carry your medication list at all times in case of emergency. Electronically Signed By: LEILA HIRSCH APRN, CNP Signed On:06-JUN-2016 13:29:12 Additional Information: Source: [facility] POWERCHART Document Id: [id number] Miscellaneous - Meri Morataya L.P.N. - 06/06/2016 1:04 PM CDT Adult Photoengraving Retoucher Intake/History Document Has Been Updated Adult Photoengraving Retoucher Intake/History Entered On: 06/06/2016 13:07 CDT Performed On: 06/06/2016 13:04 CDT by MERI MORATAYA LPN Intake LMP Date : Postmenopausal Chief Complaint : Physical- Wants to review medication. Feels like she something in her throat for about 3 weeks. Bothers more at night when laying down. Having more hot flashes and more intense. MERI MORATAYA LPN - 06/06/2016 13:10 CDT Temperature Core : 36.2 DegC(Converted to: 97.2 DegF) (LOW) Peripheral Pulse Rate : 64 /min Respiratory Rate : 16 /min Heart Rhythm : Regular Systolic Blood Pressure : 108 mmHg Diastolic Blood Pressure : 72 mmHg NIBP Mean : 84 mmHg BP Location : Left upper extremity Blood Pressure Cuff Size : Regular Height : 165 cm(Converted to: 5 ft 5 inch(es), 65 inch(es)) Actual Weight : 77.20 kg(Converted to: 170 lb 3 oz) Weight Source : Standing scale Dosing Weight Clinic : 77.2 kg Clinic BSA : 1.88 Body Mass Index : 28.36 kg/m2 MERI MORATAYA LPN - 06/06/2016 13:04 CDT General Info Information Given By : Patient Preferred Communication Mode : Verbal Languages : Liberian Is Patient Female and 13-50 no hysterectomy : No MERI MORATAYA LPN - 06/06/2016 13:04 CDT Subjective Pain Symptoms : No MERI MORATAYA LPN - 06/06/2016 13:04 CDT Dependent Habits Exposure to Tobacco Smoke : Other: former Smoking Status : Former smoker Tobacco 2A : Yes Tobacco Use/Currently Using : No Tobacco Use/Last 30 Days : No Tobacco Use/Last 12 months : No Tobacco Last Use/Month : April Tobacco Last Use/Year : 2012 Alcohol Use : No MERI MORATAYA LUTE PACKER OR APPLIER - 06/06/2016 13:04 CDT Source: [employer] Document Id: [id number]!4 Miscellaneous - Meri Morataya L.PBrigitteNBrigitte - 06/06/2016 1:01 PM CDT Health Assessment Health Assessment Entered On: 06/06/2016 13:02 CDT Performed On: 06/06/2016 13:01 CDT by MERI MORATAYA LPN Health Assessment Complete Health Assessment Complete or Modified : Annual Health Assessment Annual Health Assessment Completed : Yes HOOD MERIRICK STALLINGS LPN - 06/06/2016 13:01 CDT Nutrition Nutrition Risk Factors by History Adult : None HOODMARVINMERIRICK STALLINGS LPN - 06/06/2016 13:01 CDT Functional Current Daily Living Assistance : None HOOD MERIRICK STALLINGS LPN - 06/06/2016 13:01 CDT Dependent Habits Exposure to Tobacco Smoke : Other: former Smoking Status : Former smoker Tobacco 2A : Yes Tobacco Use/Currently Using : No Tobacco Use/Last 30 Days : No Tobacco Use/Last 12 months : No Tobacco Last Use/Month : April Tobacco Last Use/Year : 2012 Alcohol Use : No RONISHOBHAMEIR Hunter CHANDRAKANT AYERS - 06/06/2016 13:01 CDT Psychosocial Domestic Abuse Concerns : None Behavioral Health Screen/Safety Assmt : No Yarsanism Preference : Unknown RONISHOBHAElsa MERIRICK STALLINGS LPN - 06/06/2016 13:01 CDT Advance Directive Advanced Directives : No Advance Directive Additional Information : No ADMERI Hunter CHANDRAKANT AYERS - 06/06/2016 13:01 CDT Educ Needs Learning Style Preference Adult Grid Patient : Printed materials, Verbal explanation Family : Verbal explanation, Printed materials RONISHOBHAMEIR HunterRadames AYERS - 06/06/2016 13:01 CDT Source: [employer] Document Id: [id number] CDT!29 documented in this encounter Plan of Treatment Not on filedocumented as of this encounter Procedures Procedure Name Priority Date/Time Associated Diagnosis Comme nts BI BREAST SCREENING Routine 06/06/2016 1:42 PM Re sults for this BILATERAL CDT procedure are i n the results section. documented in this encounter Results BI Breast Screening Bilateral (06/06/2016 1:42 PM CDT) Anatomical Region Laterality Modality Breast Bilateral Mammography Specimen (Source) Anatomical Collection Method Collection Time Re ceived Time Location / / Volume Laterality 06/06/2016 1:42 PM CDT Addenda Addendum by Provider, Eva Mcneill 06/06/2016 1:42 PM CDT RAD^^^OW [place] Mammo Screening w ??CADD 06/06/2016 13:42:10 Impressions 06/07/2016 9:16 AM CDT No mammographic findings for malignancy in either breast. Recommendations: ??I recommend a follow- up mammogram in 1 year, self breast exams at least once per month and clinical breast exam at least once per year. ??Of note, benign finding s should not deter biopsy in the setting of a palpable abnormality. ? ?The false negative rate of mammography is approximately 10%. CODE: 1-NEGATIVE Appropriate letter sent. Full field digital mammography is used a nd Computer Aided Detection is performed on the digital mammogram image s. Narrative 06/07/2016 9:16 AM CDT EXAM: [place] Mammo Screening w/ CADD INDICATION: screen COMPARISON: 02/23/2010, 11/24/2008, 008 FINDINGS: Heterogeneously dense breast p arenchyma bilaterally. ??Breast density diminishes mammographic sensitiv ity for detection of malignancy. ?? Procedure Note Tani Oseguera M.D. / Provider, Edith hu M.D. - 08/14/2016 EXAM: [place] Mammo Screening w/ CADD INDICATION: screen COMPARISON: 02/23/2010, 11/24/2008, 008 FINDINGS: Heterogeneously dense breast p arenchyma bilaterally. Breast density diminishes mammographic sensitiv ity for detection of malignancy. IMPRESSION: No mammographic findings for malignancy in either breast. Recommendations: I recommend a follow-up mammogram in 1 year, self breast exams at least once per month and clinical breast exam at least once per year. Of note, benign findings should not deter biopsy in the setting of a palpable abnormality. T cher false negative rate of mammography is approximately 10%. CODE: 1-NEGATIVE Appropriate letter sent. Full field digital mammography is used a nd Computer Aided Detection is performed on the digital mammogram image s. Mariella Cochran(R), RCristal(R)(M) IMG BI PROCEDU RES documented in this encounter Visit Diagnoses Not on filedocumented in this encounter Additional Health Concerns Assessment Noted Time PHQ-9 Depression Total Score: 4 06/06/2016 1:31 PM CDT documented as of this encounter
--- OUTSIDE RECORDS SUMMARY | 2021-10-26 16:14 | XMS_ITS | Encounter Summary ---
:1960 Author Organization [facility] Address [address] [place] [id number] Care Team Providers Name Role Phone Unavailable Primary Care Provider Unavailable Encounter Details Date Type Department Care Team Description 09/16/2013 Hospital Encounter HX [facility] Ayden England M.D. [address] [place] [address] [phone] (Wo rk) Social History Tobacco Use [...] 12/11/2018 relatives? How often do you attend lutheran or mu-ism services? Patien t refused 12/11/2018 Do you belong to any clubs or organizations such as Patient refused 12/11/2018 lutheran groups, unions, fraternal or athletic groups, or [...] Sign Reading Time Taken Comments Blood Pressure 98/60 09/16/2013 9:45 AM CDT Pulse 68 09/16/2013 9:45 AM CDT Temperature - - Respiratory Rate 12 09/16/2013 9:45 AM CDT Oxygen Saturation - - Inhaled Oxygen Concentration - - Weight 71.8 kg (158 lb 4.6 oz) 09/16/2013 9:45 AM CDT Height 169 cm (5' 6.54) 09/16/2013 9:30 AM CDT Body Mass Index 25.14 09/16/2013 9:30 AM CDT documented in this encounter Progress Notes Danica England M.D. - 11/06/2013 12:00 AM CDT [id number] Patient's lipid profile continues to be abnormal. Would recommend increasing her pravastatin to 40 mg each day. Card is sent to patient in regards to this issue. Danica England M.D./melodie Electronically Signed By: DANICA ENGLAND MD On: 11/07/2013 08:23 AM Modified by and Electronically Signed by: DANICA ENGLAND MD On: 11/07/2013 08:23 AM Source: [facility] Document Id: [id number] Danica England M.D. - 09/16/2013 9:29 AM CDT [id number] CHIEF COMPLAINT/REASON FOR VISIT Followup. HISTORY OF PRESENT ILLNESS A 53-year-old female presents to clinic secondary to continued knee pain. Initially she felt her a neoprene splint was helpful, but now she feels like it is definitely not helping as much as it had in the past. She did have surgery when she was a teenager. Does have a pin in and she was not even awareshe had a pin. Now she finds she cannot fully extend her leg without having a sensation that it locks, and this is worse if she stands by the sink to do dishes. If she sits for long periods of time or tries to get down to garden, she is very stiff in trying to get up and has to occasionally manually stretch out her leg. Has had no further injury since her last visit in July. EMR reviewed. MEDICATIONS 1. Sertraline 200 mg daily increased 06/05/2013. 2. Bupropion 200 mg orally twice per day. PREVENTIVE SERVICES Tobacco a couple of cigarettes per day. Has used electronic cigarettes, is in process of cessation. Mammogram: 02/23/2010, advised. Pap smear: 03/09/2011. Chlamydia not applicable due to stated age. Colon screen: 01/14/[address] Marquis. Recheck plan for 10 years. Depression: Yes. PHQ-9 score 4. Asthma: No. Lipids: 07/31/2013. Tetanus: 2006. Pneumovax non applicable due to age. Influenza Non applicable secondary to time of year. DEXA scan: 02/23/2010. VITAL SIGNS Weight 71.8 kg, temperature 36.4, respiratory rate 12, pulse 68, systolic 98, diastolic 60. PHYSICAL EXAMINATION Neatly dressed, well groomed. Well-healed incision on the left knee. Is able to extend to about 95%,and when she attempts to stretch out, she guards significantly and this is not a possible stance with her knee slightly bent and off kilter. She sits comfortably. No true joint space tenderness. No significant swelling. Range of motion of the ankle and the hip are full. Reflexes 2+ knees and ankles. DIAGNOSTICS X-ray not repeated. Please see note of 08/01/2003. IMPRESSION/REPORT/PLAN 1.Knee pain. History of surgery. PLAN: Would recommend following up with an orthopedist. Being as she does have hardware in her knee the study to be obtained would be difficult to determine, therefore we will defer this to the orthopedist. An appointment is arranged with Dr. Mullen for 09/23 at 8:50 a.m. In the interim she will continue with her neoprene splint. She will likely need some physical therapy, if not outright arthroscopic or open surgery given her above health history. Signs and symptoms leading to urgent evaluation are reviewed. She is comfortable with this plan and will follow up as noted. Danica England M.D./melodie Electronically Signed By: DANICA ENGLAND MD On: 09/17/2013 06:27 PM Modified by and Electronically Signed by: DANICA ENGLAND MD On: 09/17/2013 06:27 PM Source: [facility] Document Id: [id number] documented in this encounter Nursing Notes Dominick Bradley L.P.N. - 09/22/2013 2:31 PM CDT Physician Letter 7-23-14 Letter faxed. Electronically Signed By: DOMINICK BRADLEY LPN On: 09/22/2013 02:32 PM Source: [facility] Document Id: [id number] documented in this encounter Miscellaneous Notes Miscellaneous - Danica England M.D. - 09/17/2013 12:00 AM CDT [id number] [facility] [place] ANNI MULLEN MD [address] [place] [address] September 17, 2013 RE: Gema Jauregui : [address] Mullen: This letter is in regards to Gema Jauregui, a 53-year-old female who will be seeing you September 23, 2013 at 8:50 a.m. secondary to left knee pain with locking. She has a history of ORIF of this knee with a pin remaining in approximately 1976 secondary to a high school injury. Her current medication includes sertraline 200 mg orally each day along with bupropion 200 mg twice per day. She has sensitivities to codeine. She continues to smoke a couple of cigarettes per day and is trying to quit. She does not use alcohol. She drinks a couple of cups of coffee per day and a cup of tea each day. She is status post 3 vaginal deliveries, premature menopause at age 33, episodic GERD, osteopenia confirmed on a DEXA Scan on 2003, anxiety with depressive features currently stable, hyperlipidemia, overweight, episodic restless leg syndrome, periodontal disease which resolved with dentures and a history of atypical chest pain with a stable echocardiogram in 2010. Her family history is pertinent for a mother who is in the memory care unit. She also has diabetes, schizophrenia. Her father is in good health. Her maternal grandmother had hypothyroidism, Menieres, degenerative joint disease. Her maternal grandfather of lung cancer at age 80 and had been a smoker. Paternal grandmother at age 88 secondary to old age. Paternal grandfather is and hehad some type of poorly-defined cancer in his younger years. She has a brother in good health, a sister with hypothyroidism and 3 daughters with depression. Thank you for your care in regards to this delightful woman. If you have any questions, please contact our office. Sincerely, Danica England M.D. Department of Family Medicine ap Electronically Signed By: DANICA ENGLAND MD On: 09/18/2013 12:19 PM Modified by and Electronically Signed by: DANICA ENGLAND MD On: 09/18/2013 12:19 PM Source: [facility] Document Id: [id number] Miscellaneous - Danica England M.D. - 09/16/2013 12:59 PM CDT Ambulatory Patient Summary [address] [id number] Visit Information Name: GEMA JAUREGUI [facility] Number: [id number] Current Date: 09/16/2013 12:59:30 Physicians Attending Provider: DANICA ENGLAND MD Primary [...] tablet) 1 Tablet(s), Oral, two times aday pravastatin (pravastatin 20 mg oral tablet) 1 Tablet(s), Oral, once a day (at bedtime) check labs in10 days if stable continue medication recheck fasting labs in 2 months sertraline (sertraline 100 mg oral tablet) 2 Tablet(s), Oral, once a day Stop Taking the Following Medications: Medication list as of 09-16-13 12:59 Attention: If you have any medications at [...] Electronically Signed By: DANICA ENGLAND MD Signed On:16-SEP-2013 12:59:19 Your Allergies & Intolerances Substance Reaction Symptoms Category Comments codeine Drug Your Problem List Problem Status Onset Comments Dysthymic Disorder Active Premature menopause Active 03/12/1994 Osteopenia Active 07/11/2003 02/21/10 DEXA; 02/23/10 02/23/2010 low normal DEXA Hyperlipidemia Active Tobacco dependence Active Restless legs Active Overweight Active Your Upcoming Appointments Date Time Location Reason Provider No Appointments found Attention: Contact your local Clinic if further appointment detail needed. Your Goals/Additional instructions: Source: [facility] POWERCHART Document Id: [id number] Miscellaneous - Danica England M.D. - 09/16/2013 12:59 PM CDT Ambulatory Discharge Medication List [address] [id number] Visit Information Name: GEMA JAUREGUI [facility] Number: [id number] Visit Date: 09/16/2013 12:59:28 Attending Provider: DANICA ENGLAND MD Primary Care [...] tablet) 1 Tablet(s), Oral, two times aday pravastatin (pravastatin 20 mg oral tablet) 1 Tablet(s), Oral, once a day (at bedtime) check labs in10 days if stable continue medication recheck fasting labs in 2 months sertraline (sertraline 100 mg oral tablet) 2 Tablet(s), Oral, once a day Stop Taking the Following Medications: Medication list as of 09-16-13 12:59 Attention: If you have any medications at [...] Electronically Signed By: DANICA ENGLAND MD Signed On:16-SEP-2013 12:59:19 Additional Information: Source: [facility] POWERCHART Document Id: [id number] Miscellaneous - Dominick Bradley L.P.N. - 09/16/2013 9:45 AM CDT Adult Analytics Developer Intake/History Adult Analytics Developer Intake/History Entered On: 09/16/2013 9:47 CDT Performed On: 09/16/2013 9:45 CDT by DOMINICK BRADLEY LPN Intake Chief Complaint : recheck knee Temperature Core : 36.4 DegC(Converted to: 97.5 DegF) (LOW) Peripheral Pulse Rate : 68 /min Respiratory Rate : 12 /min (LOW) Systolic Blood Pressure : 98 mmHg Diastolic Blood Pressure : 60 mmHg NIBP Mean : 73 mmHg BP Location : Left upper extremity Blood Pressure Cuff Size : Regular Actual Weight : 71.8 kg(Converted to: 158 lb 5 oz) Dosing Weight Clinic : 71.8 kg DOMINICK BRADLEY LPN - 09/16/2013 9:45 CDT General Info Languages : Arabic DOMINICK BRADLEY LPN - 09/16/2013 9:45 CDT Subjective Pain Symptoms : Yes DOMINICK BRADLEY LPN - 09/16/2013 9:45 CDT Pain Pain Assessment Grid Pain 1 Location : Knee Laterality : Left DOMINICK BRADLEY LPN - 09/16/2013 9:45 CDT Dependent Habits Tobacco Use/Currently Using : Yes Exposure to Tobacco Smoke : Patient smokes Smoking Status : Current every day smoker DOMINICK BRADLEY LPN - 09/16/2013 9:45 CDT Source: [facility] [employer] Document Id: [id number] CDT!26 documented in this encounter Plan of Treatment Not on filedocumented as of this encounter Visit Diagnoses Not on filedocumented in this encounter Additional Health Concerns Assessment Noted Time PHQ-9 Depression Total Score: 4 06/04/2013 12:09 PM CD T documented as of this encounter
--- OUTSIDE RECORDS SUMMARY | 2021-10-26 16:14 | XMS_ITS | Encounter Summary ---
:1960 Author Organization [facility] Address [address] [place] [address] Care Team Providers Name Role Phone Unavailable Primary Care Provider Unavailable Encounter Details Date Type Department Care Team Description 07/27/2014 Hospital Encounter HX [facility] FAMILY[facility] Ayden England M.D. [address] [place] [phone] (Wo rk) Social History Tobacco [...] How often do you attend gnosticist or judaism services? Patien t refused 12/11/2018 [...] Sign Reading Time Taken Comments Blood Pressure 92/60 07/27/2014 8:41 AM CDT Pulse 80 07/27/2014 8:41 AM CDT Temperature - - Respiratory Rate 16 07/27/2014 8:41 AM CDT Oxygen Saturation - - Inhaled Oxygen Concentration - - Weight 73.5 kg (162 lb 0.6 oz) 07/27/2014 8:41 AM CDT Height 165.5 cm (5' 5.16) 07/27/2014 8:41 AM CDT Body Mass Index 26.83 07/27/2014 8:41 AM CDT documented in this encounter Progress Notes Danica England M.D. - 08/04/2014 12:00 AM CDT [id number] Total cholesterol 395, triglycerides 196, LDL 301. Would recommend following up in the clinic fasting to discuss her various evaluation and treatment options. Other labs are stable. Card is sent to patient in regard to this issue. Danica England M.D./melodie Electronically Signed By: DANICA ENGLAND MD On: 08/05/2014 06:09 PM Modified by and Electronically Signed by: DANICA ENGLAND MD On: 08/05/2014 06:09 PM Source: [facility] MHSDOLBEYNONRADSYS Document Id: [id number] documented in this encounter H&P Notes Danica England M.D. - 07/27/2014 8:28 AM CDT [id number] CHIEF COMPLAINT/REASON FOR VISIT Annual exam. HISTORY OF PRESENT ILLNESS A 54-year-old female presents to clinic for annual evaluation. Is fasting. Continues to have some problems with her restless legs. Takes 3 Motrin at bedtime and it is helpful, although she has a bit ofGI distress as she takes it on an empty stomach. Has not alternated it with any acetaminophen. She is in need of refills of her other medicines. Would be happy to have a mammogram if this would be possible, but is not scheduled for today. EMR reviewed. MEDICATIONS 1. Sertraline 200 mg daily increased 06/05/2013. 2. Bupropion 200 mg orally twice per day. 3. Pravastatin 20 mg daily, but not since her last prescription. 4. Ibuprofen 200 mg 3 tablets at bedtime. ALLERGIES Codeine, details not clear. SYSTEMS REVIEW CONSTITUTIONAL: Slow weight gain over the years, but fairly stable over the last year. No fevers, chills or night sweats. No change in her energy. EYES: No blurred or double vision and no eye pain. Last ophthalmic exam 2013. ENT: No hearing loss, no tinnitus, no ear pain, no dizziness, no nasal congestion, no sore throat and no hoarseness. Has dentures. Last evaluation July of 2013, goes every year. CARDIOVASCULAR: No palpitations, no ankle edema, no true claudication and no chest pain. See the HPI and past medical/surgical history. Stopped taking her cholesterol medication as she spent 9 months caring for her mother and her [id number] in [place] and did not get refills while she was gone, butis fasting, and does believe she will need to restart the product. RESPIRATORY: No cough, no wheezing, no hemoptysis and no shortness of breath. GASTROINTESTINAL: No abdominal pain and no heartburn. Noproblems with dysphagia, hematemesis. Daily bowel regimen. No hematochezia and no problems with hemor rhoids. See the past medical/surgical history. GENITOURINARY: No pain with urination. No urinary frequency. No vaginal bleeding or spotting. No vaginal discharge. No history of abnormal Pap smears. No concerns regarding sexually transmitted diseases. See the past medical/surgical history. MUSCULOSKELETAL: No back, neck or joint pain. No swelling or stiffness. No myalgias or weakness. INTEGUMENTARY: No changes in skin lesions, hair or nails. Does self-breast exams, wears sunscreen. NEUROLOGIC: No history of syncopal events or seizures. PSYCHIATRIC: See the past medical/surgical history and HPI. ENDOCRINE: No history of diabetes or thyroid problems. HEMATOLOGIC/LYMPHATIC: No history of anemia or bleeding. ALLERGIC/IMMUNOLOGIC: Please see above. PAST MEDICAL/SURGICAL HISTORY Surgeries: 1. Left knee surgery with residual episodic pain 1976. Other hospitalizations: vaginal delivery. Other injuries: See above. Other major illnesses: 1. Premature menopause at age 33. 2. Episodic GERD currently stable. 3. Osteopenia confirmed on DEXA scan . 4. Anxiety with depressive features. 5. Hyperlipidemia. 6. Overweight. 7. Restless legs, currently stable. 8. Periodontitis, resolved with placement of dentures. 9. Nicotine dependence. 10. Stable echocardiogram 07/07/2010 obtained secondary to atypical chest pain with ejection fractionof 65% PREVENTIVE SERVICES: Tobacco: Quit smoking cigarettes in 2013 and has an e-cigarette 2 times per week. Mammogram: 02/23/2010, advised. Pap smear: 07/27/2014. Colon screen: 01/14/[address] Marquis. Recheck plan for 10 years. Depression: Yes. PHQ-9 score 4. Asthma: No. Lipids: 01/08/2013. Tetanus: 2006. Pneumovax non applicable due to age. Influenza Non applicable secondary to time of year. DEXA scan: 02/23/2010. SOCIAL HISTORY ALCOHOL: None. OTHER SOCIAL DRUGS: No other social drugs. CAFFEINE USE: A cup coffee each day. Tea in the winter. SEATBELT USE: Wears a seatbelt. DIET: Tries to follow a healthy diet. LAST BREAST EXAM: 2013. CALCIUM INTAKE: Adequate. EXERCISES: With hula hooping in yoga. FAMILY HISTORY Mother in the memory care unit in [place] since 2013. Mother has diabetes mellitus and schizophrenia. Has been on Thorazine for many years. Father in good health. Parents are . Maternal grandmother hypothyroidism and Meniere's disease, degenerative joint disease. Maternal grandfather lung cancer dying at age 80 had been a smoker. Paternal grandmother at age 88 secondary to old age. Paternal grandfather secondary to ADA had some type of poorly defined cancer in his youngeryears. Brother in good health. Two sisters: One with hypothyroidism. Maternal aunt with bipolar disease. Three daughters with depression. VITAL SIGNS Height 165.5 cm, weight 73.5 kg. Temperature 36.3, respiratory rate 16, pulse 80, systolic 92, diastolic 60. PHYSICAL EXAMINATION GENERAL: Neatly dressed and well groomed and in no apparent distress. SKIN: Solar skin changes in a sun wear distribution. No palpable masses. HEAD: No trauma, tenderness or masses. EYES: Conjunctiva clear. PERRL. Full EOM. Funduscopic exam grossly normal. ENT: External ears and nose without gross abnormalities. Tympanic membranes are frias. Subjectively intact hearing. Nasal mucosa membranes pink and moist. Septum is midline. Oral: No exudates. Good-fitting dentures. No evidence of periodontal disease. No pharyngeal erythema or exudates. Neck supple. Trachea midline. LYMPH NODES: Negative evaluation of neck, axilla and groin. THYROID: No thyroid masses, tenderness or enlargement. BREASTS: Fibrocystic changes, but nontender. No galactorrhea. Negative evaluation of the axilla. PERIPHERAL VESSELS: Positive radial, ulnar, femoral, posterior tibial and dorsalis pedis pulses. HEART: Regular rate and rhythm. No clicks, rubs or murmurs. Carotid arteries reveal no bruits. Abdominal aorta is not prominent. No ankle edema. Some lower extremity varicosities, not worrisome. LUNGS: Clear to auscultation. No palpable chest wall masses. ABDOMEN: Soft and nontender. Bowel sounds present. No organomegaly. PELVIS: No bony abnormalities. RECTUM: Patent anus. Good sphincter tone. No hemorrhoids. Hemoccult negative stool in the vault. GENITALIA: External genitalia appropriate for stated age. Urethral meatus free from lesions. Supple vaginal vault. Multiparous, atrophic cervix. Pap smear with spatula and cytobrush obtained with no friability. Uterus freely mobile, no nodularity. No tenderness with either speculum or bimanual exam. SPINE: Range of motion consistent with stated age. No bony abnormalities. JOINTS: Range of motion consistent with stated age. No bony abnormalities. EXTREMITIES: Nails and digits in good condition. Range of motion of head, neck, ribs, right and leftupper extremity, right and left lower extremity consistent with the patients stated age. GAIT: Smooth easy. MENTAL: Oriented x3. NEUROLOGICAL: Reflexes 2+ in triceps, biceps, knees and ankles. IMPRESSION/REPORT/PLAN 1. Annual exam. 2. Restless legs. 3. Overweight. 4. Osteopenia. 5. Hyperlipidemia. 6. Dysthymia. 7. History of tobacco use. PLAN: Will recommend continue on her current medication regimen. Will recommend checking labs with aCBC, basic metabolic profile, urinalysis, AST, lipid profile, following up accordingly. Follow up the ThinPrep and the mammogram as well. Signs and symptoms leading to urgent evaluation are reviewed. She will consider all of her options. If labs are stable, would be happy to give refills. Reviewed exercise, cholesterol, diet/weight loss, calcium intake, alcohol use, immunizations, tobacco use, caffeine use, self-breast exams, mammography, colonic studies including colonoscopy or FIT testing, hormone replacement therapy as appropriate, seatbelt use, back care, depression, eye exams and other issues. Follow up if any change occurs or as noted. Danica England M.D./melodie Electronically Signed By: DANICA ENGLAND MD On: 07/29/2014 01:35 PM Modified by and Electronically Signed by: DANICA ENGLAND MD On: 07/29/2014 01:35 PM Source: [facility] MHSDOLBEYNONRADSYS Document Id: [id number] documented in this encounter Nursing Notes Dominick Bradley L.P.N. - 08/04/2014 10:57 AM CDT Labs 07-27-14 Result card sent. Electronically Signed By: DOMINICK BRADLEY LPN On: 08/04/2014 10:57 AM [facility] Document Id: [id number] documented in this encounter Miscellaneous Notes Miscellaneous - Danica England M.D. - 07/27/2014 12:26 PM CDT PHQ-9 PHQ-9 Entered On: 07/27/2014 12:26 CDT Performed On: 07/27/2014 12:26 CDT by DANICA ENGLAND MD PHQ-9 Little interest or pleasure in doing things : Not at all Feeling down, depressed, or hopeless : Not at all Trouble falling or staying asleep, or sleeping too much : Several days Feeling tired or having little energy : Several days Poor appetite or overeating : More than half the days Feeling bad about yourself or that you are a failure : Not at all Trouble concentrating on things : Not at all Moving or speaking slowly; restless or fidgety : Not at all Thoughts that you would be better off /hurting self : Not at all PHQ-9 Calculated Score : 4 Problems make work, home, or dealing with others : Not difficult at all DANICA ENGLAND MD - 07/27/2014 12:26 CDT Source: [facility] [employer] Document Id: [id number] CDT!13 Miscellaneous - Danica England M.D. - 07/27/2014 12:25 PM CDT Ambulatory Patient Summary [address] [id number] Visit Information Name: GEMA JAUREGUI [facility] Number: [id number] Current Date: 07/27/2014 12:25:25 Physicians Attending Provider: DANICA ENGLAND MD Primary [...] tablet) 1 Tablet(s), Oral, two times aday needs follow up *pravastatin (pravastatin 20 mg oral tablet) 1 Tablet(s), Oral, once a day (at bedtime) sertraline (sertraline 100 mg oral tablet) 2 Tablet(s), Oral, once a day needs follow up * You have let us know that you are not taking this medication as listed. Please talk with your primary care provider or the health care provider who prescribed the medication as soon as possible. Stop Taking the Following Medications: Medication list as of 07-27-14 12:25 Attention: If you have any medications at [...] Electronically Signed By: DANICA ENGLAND MD Signed On:27-JUL-2014 12:25:13 Your Allergies & Intolerances Substance Reaction Symptoms Category Comments codeine Drug Your Problem List Problem Status Onset Comments Dysthymic Disorder Active Premature menopause Active 03/12/1994 Osteopenia Active 07/11/2003 02/21/10 DEXA; 02/23/10 02/23/2010 low normal DEXA Hyperlipidemia Active Restless legs Active Overweight Active Your Upcoming Appointments Date Time Location Provider No Appointments found Attention: Contact your local Clinic if further appointment detail needed. Your Goals/Additional instructions: Source: [facility] POWERCHART Document Id: [id number] Miscellaneous - Danica England M.D. - 07/27/2014 12:25 PM CDT Ambulatory Discharge Medication List [address] [id number] Visit Information Name: GEMA JAUREGUI [facility] Number: [id number] Visit Date: 07/27/2014 12:25:24 Attending Provider: DANICA ENGLAND MD Primary Care [...] tablet) 1 Tablet(s), Oral, two times aday needs follow up *pravastatin (pravastatin 20 mg oral tablet) 1 Tablet(s), Oral, once a day (at bedtime) sertraline (sertraline 100 mg oral tablet) 2 Tablet(s), Oral, once a day needs follow up * You have let us know that you are not taking this medication as listed. Please talk with your primary care provider or the health care provider who prescribed the medication as soon as possible. Stop Taking the Following Medications: Medication list as of 07-27-14 12:25 Attention: If you have any medications at [...] Electronically Signed By: DANICA ENGLAND MD Signed On:27-JUL-2014 12:25:13 Additional Information: [facility] Document Id: [id number] Miscellaneous - Dominick Bradley L.P.N. - 07/27/2014 8:41 AM CDT Adult Plaster Pattern Caster Intake/History Adult Plaster Pattern Caster Intake/History Entered On: 07/27/2014 8:43 CDT Performed On: 07/27/2014 8:41 CDT by DOMINICK BRADLEY LPN Intake Chief Complaint : physical Temperature Core : 36.3 DegC(Converted to: 97.3 DegF) (LOW) Peripheral Pulse Rate : 80 /min Respiratory Rate : 16 /min Systolic Blood Pressure : 92 mmHg Diastolic Blood Pressure : 60 mmHg NIBP Mean : 71 mmHg BP Location : Left upper extremity Blood Pressure Cuff Size : Regular Height : 165.5 cm(Converted to: 5 ft 5 inch(es), 65 inch(es)) Actual Weight : 73.5 kg(Converted to: 162 lb 1 oz) Dosing Weight Clinic : 73.5 kg Clinic BSA : 1.84 Body Mass Index : 26.83 kg/m2 DOMINICK BRADLEY LPN - 07/27/2014 8:41 CDT General Info Languages : Ukrainian Is Patient Female and 13-50 no hysterectomy : No DOMINICK BRADLEY LPN - 07/27/2014 8:41 CDT Subjective Pain Symptoms : No DOMINICK BRADLEY LPN - 07/27/2014 8:41 CDT Dependent Habits Tobacco Use/Currently Using : No Tobacco Use/Last 12 months : No Exposure to Tobacco Smoke : Patient smokes Smoking Status : Former smoker DOMINICK BRADLEY LPN - 07/27/2014 8:41 CDT ID Screen Travel Within Last 21 Days : No Contact with someone with Ebola : DOMINICK Sanchez LPN - 07/27/2014 8:41 CDT [facility] Document Id: [id number] CDT!29 Miscellaneous - Dominick Bradley L.PBrigitteNBrigitte - 07/27/2014 8:41 AM CDT Health Assessment Health Assessment Entered On: 07/27/2014 8:44 CDT Performed On: 07/27/2014 8:41 CDT by DOMINICK BRADLEY LPN Health Assessment Complete Health Assessment Complete or Modified : Annual Health Assessment Annual Health Assessment Completed : Yes DOMINICK BRADLEY LPN - 07/27/2014 8:41 CDT Nutrition Nutrition Risk Factors by History Adult : None DOMINICK BRADLEY LPN - 07/27/2014 8:41 CDT Functional Current Daily Living Assistance : None DOMINICK BRADLEY LPN - 07/27/2014 8:41 CDT Dependent Habits Tobacco Use/Currently Using : No Tobacco Use/Last 12 months : No Exposure to Tobacco Smoke : Patient smokes Smoking Status : Former smoker DOMINICK BRADLEY LPN - 07/27/2014 8:41 CDT Psychosocial Domestic Abuse Concerns : None Behavioral Health Screen/Safety Assmt : No Sikhism Preference : Unknown DOMINICK BRADLEY LPN - 07/27/2014 8:41 CDT Advance Directive Advanced Directives : No Advance Directive Additional Information : No DOMINICK BRADLEY LPN - 07/27/2014 8:41 CDT Educ Needs Learning Style Preference Adult Grid Patient : Demonstration, Printed materials, Verbal explanation, Video/Educational TV Family : Demonstration, Printed materials, Verbal explanation, Video/Educational TV DOMINICK BRADLEY LPN - 07/27/2014 8:41 CDT Source: [facility] [employer]CHART Document Id: [id number] CDT!24 documented in this encounter Plan of Treatment Not on filedocumented as of this encounter Procedures Procedure Name Priority Date/Time Associated Comments Diagnosis LIPID PANEL, S Routine 07/27/2014 9:24 Results fo r this AM CDT procedure are i n the results section. AUTOMATED DIFFERENTIAL, Routine 07/27/2014 9:24 R esults for this B AM CDT procedure are i n the results section. DIPSTICK, U Routine 07/27/2014 9:24 Results for this AM CDT procedure are i n the results section. CBC WITH DIFFERENTIAL, B Routine 07/27/2014 9:24 Results for this AM CDT procedure are i n the results section. ASPARTATE Routine 07/27/2014 9:24 Results for this AMINOTRANSFERASE (AST), AM CDT proc edure are in S/P the results section. BASIC METABOLIC PANEL, Routine 07/27/2014 9:24 Re sults for this S/P AM CDT procedure are i n the results section. PATHOLOGY INSPECTOR BALL POINTS CYTOLOGY Routine 07/27/2014 12:00 R esults for this AM CDT procedure are i n the results section. documented in this encounter Results Automated Differential (07/27/2014 9:24 AM CDT) P athologist Signature Absolute 3.67 1.70 - POWERCHART Neutrophils 7.00 109L Lymphocytes 2.73 0.90 - POWERCHART 2.90 X109L Monocytes 0.73 0.30 - POWERCHART 0.90 X109L Eosinophils 0.13 0.05 - POWERCHART 0.50 X109L Absolute 0.04 0.00 - POWERCHART Basophil 0.30 X109L Specimen Anatomical Collection Method Collection Time Receive d Time (Source) Location / / Volume Laterality Blood 07/27/2014 9:24 AM 5 9:24 CDT AM CDT Danica England M.D. LAB BLOOD ADD-ON Performing Organization Address City/State/ZIP Code Phon e Number POWERCHART CBC with Differential (07/27/2014 9:24 AM CDT) P athologist Signature Leukocytes 7.3 3.4 - 10.5 POWERCHART X109L Erythrocytes 4.43 3.90 - 5.03 POWERCHART [id number] Hemoglobin 13.1 12.0 - 15.5 POWERCHART GDL Hematocrit 40.6 34.9 - 44.5 POWERCHART MCV 91.6 82.0 - 98.0 POWERCHART FL HX RDW 14.1 11.9 - 15.5 POWERCHART Platelet Count 240 150 - 450 POWERCHART X109L Specimen (Source) Anatomical Collection Method Collection Time Re ceived Time Location / / Volume Laterality Blood 07/27/2014 9:24 AM CDT Danica England M.D. LAB BLOOD ADD-ON Performing Organization Address City/State/ZIP Code Phon e Number POWERCHART BMP (Basic Metabolic Panel) (07/27/2014 9:24 AM CDT) P athologist Signature BUN (Blood Urea 19 6 - 21 POWERCHART Nitrogen), S MGDL Chloride, S 103 98 - 107 POWERCHART MMOLL CO2 Total 29 22 - 29 POWERCHART MMOLL Creatinine 0.9 0.6 - 1.1 POWERCHART MGDL Glucose 88 70 - 139 POWERCHART MGDL Calcium, Total, 9.8 8.0 - 10.3 POWERCHART S MGDL Sodium, S 145 135 - 145 POWERCHART MMOLL Potassium, S 4.1 3.6 - 5.2 POWERCHART MMOLL HXeGFR (MDRD) >60 >=60 POWERCHART [id number] eGFR >60 >=60 POWERCHART Black/ [id number] Brazilian Specimen (Source) Anatomical Collection Method Collection Time Re ceived Time Location / / Volume Laterality Blood 07/27/2014 9:24 AM CDT Danica England M.D. LAB BLOOD ADD-ON Performing Organization Address City/State/ZIP Code Phon e Number POWERCHART (ABNORMAL) Dipstick, Urine (07/27/2014 9:24 AM CDT) Patholo gist Method Time Signature HXUr Color Yellow Colorless POWERCHART Clarity Clear Clear POWERCHART Glucose Negative Negative POWERCHART MGDL HXBILIRUBIN Negative Negative POWERCHART Ketones, QL(U) Negative Negative POWERCHART MGDL Specific 1.025 POWERCHART Joaquin, POCT, U HXBLOOD Trace (A) Negative POWERCHART pH, POCT, Urine 5.5 <5.0 POWERCHART Protein, Ur, Dip Negative Negative POWERCHART MGDL Urobilinogen 0.2 0.2 MGDL POWERCHART HXNITRITE Negative Negative POWERCHART Leukocyte Trace (A) Negative POWERCHART Esterase Specimen (Source) Anatomical Collection Method Collection Time Re ceived Time Location / / Volume Laterality Urine, First 07/27/2014 9:24 AM Voided CDT Danica England M.D. LAB URINE ORDERABLES Performing Organization Address City/State/ZIP Code Phon e Number POWERCHART (ABNORMAL) Lipid Panel (07/27/2014 9:24 AM CDT) P athologist Signature Calculated LDL 301 (H) <=129 MGDL POWERCHART Comment: 2013 National Lipid Association recommen dations for LDL-C in adults ages 18 and up: Desirable <100 mg/dL Above desirable 100-129 mg/dL Borderline high 130-159 mg/dL High 160-189 mg/dL Very High 190 mg/dL 2014 National Lipid Association recommen dations for LDL-C in children ages 2 to 17. Acceptable <110 mg/dL Borderline High 110-129mg/dL High 130 mg/dL LDL-C >190mg/dL: The markedly elevated LDL level is suggestive of a genetic condition such as familial hypercholesterolemia(FH) or familial defective apolipoprotein B-100 (FDB). Molecular genetic t esting for FH and FDB is available mariana [facility]: FH/ADH Genetic Reflex [place] el (test ADHP). Acquired (non-genetic) causes of markedly increased LDL cholesterol include cholestatic liver disease due to the presence of LpX. If a genetic form of hypercholesterolemia is suspected, family studies including biochemical testing fo r lipids (total cholesterol,triglycerides, LDL cholesterol and HDL cholesterol) are recommended. ??Please contact the laboratory at or the on-line test catalog at [employer] for information about how to order these luna ts or to speak with a genetic counselor. Further interpretation would require clinical information. Total Cholesterol/HDL Ratio 7.18 PO WERCHART Cholesterol, Total 395 (H) <=199 MGDL POWERCHART Comment: 2013 National Lipid Association recommen dations for Total Cholesterol in adults ages 18 and up: Desirable <200 mg/dL Borderline high 200-239 mg/dL High 240 mg/dL 2014 National Lipid Association recommen dations for Total Cholesterol in children ages 2 to 17. Acceptable <170 mg/dL Borderline High 170-199 mg/dL High 200 mg/dL HX HDL 55 >=50 MGDL POWERCHART Comment: 2014 National Lipid Association recommen dations for HDL-C in adults ages 18 and up: Low <40 mg/dL (Men) Low <50 mg/dL (Women) 2013 National Lipid Association recommen dations for HDL-C in children ages 2 to 17. Low <40 mg/dL Borderline Low 40-45 mg/dL Acceptable >45 mg/dL Triglycerides 196 (H) <=149 MGDL POWERCHART Comment: 2013 National Lipid Association recommen dations for Triglycerides in adults ages 18 and up: Normal <150 mg/dL Borderline High 150-199 mg/dL High 200-499 mg/dL Very High 500 mg/dL 2014 National Lipid Association recommen dations for Triglycerides in children ages 2 to 9. Acceptable <75 mg/dL Borderline High 75-99 mg/dL High 100 mg/dL 2014 National Lipid Association recommen dations for Triglycerides in children ages 10 to 17. Acceptable <90 mg/dL Borderline High 90-129 mg/dL High 130 mg/dL Trigs >400mg/dL: Triglycerides >400 mg/ dL. Calculated LDL cholesterol is not valid. Non-HDL cholesterol may be used for risk assessment when triglycerides are >400mg/dL. HXLDL/HDL 5 POWERCHART Specimen (Source) Anatomical Collection Method Collection Time Re ceived Time Location / / Volume Laterality Blood 07/27/2014 9:24 AM CDT Danica England M.D. LAB BLOOD ADD-ON Performing Organization Address City/State/ZIP Code Phon e Number POWERCHART AST (Aspartate Aminotransferase) (07/27/2014 9:24 AM CDT) [facility] gist Method Time Signature Aspartate 28 8 - 43 POWERCHART Aminotransferase UNITL (AST), S Specimen (Source) Anatomical Collection Method Collection Time Re ceived Time Location / / Volume Laterality Blood 07/27/2014 9:24 AM CDT Danica England M.D. LAB BLOOD ADD-ON Performing Organization Address City/State/ZIP Code Phon e Number POWERCHART Pathology INSPECTOR BALL POINTS Cytology (07/27/2014 12:00 AM CDT) Specimen (Source) Anatomical Location Collection Method / Collectio n Time Received Time / Laterality Volume 07/27/2014 Narrative [facility] - 08/04/2014 6:04 AM CDT [facility] [address] [facility] [address] [place], [place] ??[id number] Patient Name: GEMA JAUREGUI Patient ID #: [id number] Collected: 07/27/2014 Address: [facility]/Zip: [address] [place] [address] ??[id number] Received: Reported: 07/28/2014 08/04/2014 Soc. Sec. #: ?/Age/Sex (Age: 54) ??F Physician(s): RODRI ENGLAND MD Copy To: ? [facility] ??[id number] [address] [facility], ??[place] ??[address] CYTOPATHOLOGY INSPECTOR BALL POINTS REPORT FINAL CYTOLOGIC DIAGNOSIS Pap Smear - ThinPrep: NEGATIVE FOR INTRAEPITHELIAL LESION OR MALIGNANCY ENDOCERVICAL CELLS/COMPONENT PRESENT. SATISFACTORY SPECIMEN FOR EVALUATION. Electronically Signed Out By amb/08/04/[address](ASCP) The Pap test is a screening procedure an d, as such, is subject to both false positive and false negative results as evidenced by published data. ??It is not a diagnostic test and results should be inter preted in the context of the patient's h istory and other clinical findings. ??Obtaining per iodic Pap tests may help to minimize the consequences of any false negatives that may occur. SPECIMEN(S) RECEIVED: Pap Smear - ThinPrep CLINICAL HISTORY: Date of Last Menstrual Period: MENOPAUSE Menstrual History: Postmenopausal Hormonal History: No hormonal therapy Other Clinical Conditions: HPV TYPING REQUESTED: IF ASCUS Danica England M.D. LAB PAP COPATH ORDERABLES Performing Organization Address City/[facility]/ZIP Code Phon e Number LCM LAB documented in this encounter Visit Diagnoses Not on filedocumented in this encounter Additional Health Concerns Assessment Noted Time PHQ-9 Depression Total Score: 4 07/27/2014 12:26 PM CD T documented as of this encounter
--- OUTSIDE RECORDS SUMMARY | 2021-10-26 16:14 | XMS_ITS | Encounter Summary ---
:1960 Author Organization [facility] Address [address] [place] [address] Care Team Providers Name Role Phone Danica England M.D. Primary Care Provider Encounter Details Date Type Department Care Team Description 09/11/2016 Hospital Encounter [facility]X [facility] Ayden England M.D. [address] [place], [place] [address] (Wo rk) Social History Tobacco [...] How often do you attend orthodoxy or sikhism services? Patien t refused 12/11/2018 [...] minutes do you engage in exercise at is 20 min 12/11/2018 level? Stress Answer [...] - Inhaled Oxygen Concentration - - Weight - - Height 165 cm (5' 4.96) 09/11/2016 9:15 AM CDT Body Mass Index - - documented in this encounter Medications at Time of Discharge Medication Sig Dispensed Refills Start Date End Date levothyroxine Take 1 tablet by 0 09/11/201601/11 (for_SYNTHROID, mouth daily. LEVOTHROID) 75 mcg tablet pravastatin Take 1 tablet by 0 09/11/2016 017 (for_PRAVACHOL) 20 mg mouth at bedtime. tablet documented as of this encounter Plan of Treatment Not on filedocumented as of this encounter Procedures Procedure Name Priority Date/Time Associated Diagnosis Comme nts THYROID-STIMULATING Routine 09/11/2016 9:28 AM Re sults for this HORMONE-SENSITIVE CDT procedure are in (S-TSH) the results section. documented in this encounter Results (ABNORMAL) S-TSH (Thyroid-Stimulating Hormone - Sensitive) (09/11/2016 9:28 AM CDT) P athologist Signature TSH 0.23 (L) 0.27 - POWERCHART (Thyrotropin) 4.20 MIUL Comment: Biotin has been identified by the iraj felix as a potential interfering substance. Higher concentrations of biotin may be found in multivitamins, hair/nail supplements, and workout supplements. If the result does not match clinical observat ions, repeat testing after patient refrains from the use of supplements for at least 12 hours. Specimen (Source) Anatomical Collection Method Collection Time Re ceived Time Location / / Volume Laterality Blood 09/11/2016 9:28 AM CDT Danica England M.D. LAB BLOOD ADD-ON Performing Organization Address City/State/ZIP Code Phon e Number POWERCHART POWERCHART NA documented in this encounter Visit Diagnoses Not on filedocumented in this encounter Additional Health Concerns Assessment Noted Time PHQ-9 Depression Total Score: 3 07/13/2016 12:46 PM CD T documented as of this encounter Care Teams Telecommunications Support Relationship Specialty Start Date End Date Danica England M.D. PCP - General 08/10/16 01/26/19 documented as of this encounter
--- OUTSIDE RECORDS SUMMARY | 2021-10-26 16:14 | XMS_ITS | Encounter Summary ---
:1960 Author Organization [facility] Address [address] [place] [address] Care Team Providers Name Role Phone Unavailable Primary Care Provider Unavailable Encounter Details Date Type Department Care Team Description 07/25/2016 Hospital Encounter HX [facility] Ayden England M.D. [address] [place] [address] (Wo rk) Social History Tobacco Use [...] 12/11/2018 relatives? How often do you attend worship or rastafarian services? Patien t refused 12/11/2018 Do you belong to any clubs or organizations such as Patient refused 12/11/2018 worship groups, unions, fraternal or athletic groups, or [...] on file documented as of this encounter Nursing Notes Dominick Bradley L.P.NBrigitte - 07/27/2016 7:47 AM CDT Lab 07-25-16 Result card sent per Dr. England. Electronically Signed By: DOMINICK BRADLEY LPN On: 07/27/2016 07:48 AM Source: [employer] Document Id: [id number] Elieen Becker L.PBrigitteNBrigitte - 07/26/2016 9:10 AM CDT lab results 07/25/16 Results card sent, Per Dr. England. Electronically Signed By: EILEEN BECKER LPN On: 07/26/2016 09:11 AM Source: [facility] Document Id: [id number] documented in this encounter Plan of Treatment Not on filedocumented as of this encounter Procedures Procedure Name Priority Date/Time Associated Comments Diagnosis ASPARTATE Routine 07/25/2016 11:04 Results for this AMINOTRANSFERASE (AST), AM CDT proc edure are in S/P the results section. documented in this encounter Results AST (Aspartate Aminotransferase) (07/25/2016 11:04 AM CDT) [facility] gist Method Time Signature Aspartate 39 8 - 43 POWERCHART Aminotransferase UNITL (AST), S Specimen (Source) Anatomical Collection Method Collection Time Re ceived Time Location / / Volume Laterality Blood 07/25/2016 11:04 AM CDT Danica England M.D. LAB BLOOD ADD-ON Performing Organization Address City/State/ZIP Code Phon e Number POWERCHART documented in this encounter Visit Diagnoses Not on filedocumented in this encounter Additional Health Concerns Assessment Noted Time PHQ-9 Depression Total Score: 3 07/13/2016 12:46 PM CD T documented as of this encounter
--- OUTSIDE RECORDS SUMMARY | 2021-10-26 16:14 | XMS_ITS | Encounter Summary ---
:1960 Author Organization [facility] Address [address] [place] [address] Care Team Providers Name Role Phone Unavailable Primary Care Provider Unavailable Encounter Details Date Type Department Care Team Description 06/07/2016 Hospital Encounter HX [facility] Ayden England M.D. [address] [place] [address] (Wo rk) Social History Tobacco Use [...] How often do you attend scientologist or jain services? Patien t refused 12/11/2018 [...] - - Height 165 cm (5' 4.96) 06/07/2016 10:03 AM CDT Body Mass Index - - documented in this encounter Plan of Treatment Not on filedocumented as of this encounter Procedures Procedure Name Priority Date/Time Associated Diagnosis Comme nts AUTOMATED Routine 06/07/2016 10:20 AM Results for this DIFFERENTIAL, B CDT procedure ar e in the results section. CBC WITH Routine 06/07/2016 10:20 AM Results for this DIFFERENTIAL, B CDT procedure ar e in the results section. THYROID-STIMULATING Routine 06/07/2016 10:20 AM R esults for this HORMONE-SENSITIVE CDT procedure are in (S-TSH) the results section. BASIC METABOLIC Routine 06/07/2016 10:20 AM Resul ts for this PANEL, S/P CDT procedure are i n the results section. documented in this encounter Results Automated Differential (06/07/2016 10:20 AM CDT) P athologist Signature Absolute 2.71 1.70 - POWERCHART Neutrophils 7.00 109L Lymphocytes 2.25 0.90 - POWERCHART 2.90 X109L Monocytes 0.41 0.30 - POWERCHART 0.90 X109L Eosinophils 0.06 0.05 - POWERCHART 0.50 X109L Absolute 0.03 0.00 - POWERCHART Basophil 0.30 X109L Specimen Anatomical Collection Method Collection Time Receive d Time (Source) Location / / Volume Laterality Blood 06/07/2016 10:20 06/07/2016 AM CDT 10:20 AM CDT Fadumo Hirsch APRN, C.N.P. LAB BLOOD ADD-ON Performing Organization Address City/State/ZIP Code Phon e Number POWERCHART CBC with Differential (06/07/2016 10:20 AM CDT) athologist Signature Leukocytes 5.5 3.4 - 10.5 POWERCHART X109L Erythrocytes 4.41 3.90 - 5.03 POWERCHART [id number] Hemoglobin 13.3 12.0 - 15.5 POWERCHART GDL Hematocrit 40.1 34.9 - 44.5 POWERCHART MCV 90.9 82.0 - 98.0 POWERCHART FL HX RDW 14.8 11.9 - 15.5 POWERCHART Platelet Count 219 150 - 450 POWERCHART X109L Specimen (Source) Anatomical Collection Method Collection Time Re ceived Time Location / / Volume Laterality Blood 06/07/2016 10:20 AM CDT Fadumo Hirsch APRN, C.N.P. LAB BLOOD ADD-ON Performing Organization Address City/State/ZIP Code Phon e Number POWERCHART (ABNORMAL) Thyroid-Stimulating Hormone-Sensitive (s-TSH) (06/07/2016 10:20 AM CDT) P athologist Signature TSH 6.49 (H) 0.27 - POWERCHART (Thyrotropin) 4.20 MIUL Comment: Biotin has been identified by the iraj cturer as a potential interfering substance. Higher concentrations of biotin may be found in multivitamins, hair/nail supplements, and workout supplements. If the result does not match clinical observat ions, repeat testing after patient refrains from the use of supplements for at least 12 hours. Specimen (Source) Anatomical Collection Method Collection Time Re ceived Time Location / / Volume Laterality Blood 06/07/2016 10:20 AM CDT Javier Vidal APRNN.P. LAB BLOOD ADD-ON Performing Organization Address City/State/ZIP Code Phon e Number POWERCHART (ABNORMAL) BMP (Basic Metabolic Panel) (06/07/2016 10:20 AM CDT) P athologist Signature Sodium, S 143 135 - 145 POWERCHART MMOLL Potassium, S 4.5 3.6 - 5.2 POWERCHART MMOLL Chloride, S 106 98 - 107 POWERCHART MMOLL CO2 Total 31 (H) 22 - 29 POWERCHART MMOLL Comment: Reference ranges have not been established for patients that are <12 months of age. Glucose, Fasting, S 103 (H) 70 - 99 MGDL POWERCH ART BUN (Blood Urea Nitrogen), S 12 6 - 21 MGDL POWERCHART Creatinine 0.97 0.60 - 1.10 MGDL POWERCHART Calcium, Total, S 9.5 8.0 - 10.3 MGDL POWERC HECK Anion Gap 6 (L) 7 - 15 MMOLL POWERCHART HXeGFR (MDRD) 60 >=60 [id number] POWERCHART eGFR Black/ >60 >=60 [id number] POWERCHART Specimen (Source) Anatomical Collection Method Collection Time Re ceived Time Location / / Volume Laterality Blood 06/07/2016 10:20 AM CDT Fadumo Hirsch APRN, C.N.P. LAB BLOOD ADD-ON Performing Organization Address City/State/ZIP Code Phon e Number POWERCHART documented in this encounter Visit Diagnoses Not on filedocumented in this encounter Additional Health Concerns Assessment Noted Time PHQ-9 Depression Total Score: 4 06/06/2016 1:31 PM CDT documented as of this encounter
--- OUTSIDE RECORDS SUMMARY | 2021-10-26 16:14 | XMS_ITS | Encounter Summary ---
:1960 Author Organization [facility] Address [address] [place] [address] Care Team Providers Name Role Phone Unavailable Primary Care Provider Unavailable Encounter Details Date Type Department Care Team Description 03/10/2015 Hospital Encounter HX [facility] FAMILY[facility]A Ayden England M.D. [address] [place] [address] 021 (Wo rk) Social History Tobacco Use [...] 12/11/2018 relatives? How often do you attend religious or episcopal services? Patien t refused 12/11/2018 Do you belong to any clubs or organizations such as Patient refused 12/11/2018 religious groups, unions, fraternal or athletic groups, or [...] Sign Reading Time Taken Comments Blood Pressure 102/60 03/10/2015 10:25 AM SEATING UPHOLSTERER Pulse 72 03/10/2015 10:25 AM SEATING UPHOLSTERER Temperature - - Respiratory Rate 16 03/10/2015 10:25 AM SEATING UPHOLSTERER Oxygen Saturation - - Inhaled Oxygen Concentration - - Weight 74 kg (163 lb 2.3 oz) 03/10/2015 10:25 AM SEATING UPHOLSTERER Height 166 cm (5' 5.35) 03/10/2015 10:17 AM SEATING UPHOLSTERER Body Mass Index 26.85 03/10/2015 10:17 AM SEATING UPHOLSTERER documented in this encounter Progress Notes Danica England M.D. - 03/10/2015 10:16 AM CST [id number] CHIEF COMPLAINT/REASON FOR VISIT Fatigue. HISTORY OF PRESENT ILLNESS A 54-year-old female presents to clinic secondary to increasing fatigue beginning around Christmastime. She is accompanied by her daughter. Her daughter does feel it might have been beginning a bit before that. She was to have been taking her statin, but further discussion reveals she was not taking any of her medication for her cholesterol at that time and plans to start it sometime in the future. When she did utilize the product, she did not note any fatigue. She does have some increased stress with holidays. This has been a longstanding difficulty. She does take her gabapentin for her leg movement and the side effect of sleep had been helpful, but she is not having this side effect of sleep on a regular basis. Had been taking melatonin. This was somewhat helpful but she discontinued this product. Her daughter does note her mood is not quite as it should be. She feels overall that it is significantly improved since the bupropion had been added. Has episodic abdominal pain and nausea not really related to anything, although she states she does avoid spicy foods. Her bowel regimen is every other day and firmer than it had been. She has been taking a Rolaids once per day, and she attributes the need for this due to she had been taking a bit more Motrin but she discontinued this product. She feels like her hair is falling out and her skin is more dry than it usually is. Did have a bit of a cold, but her symptoms do not feel like a cold at the present time. Had some achiness in her joints in the fall and did undergo some rheumatologic laboratory evaluations which were all stable, and she does have known osteoarthritis. Did have premature menopause. EMR reviewed. MEDICATIONS 1. Sertraline 200 mg daily increased 06/05/2013. 2. Bupropion 200 mg orally twice per day. 3. Pravastatin 20 mg daily. Prescription given 12/15/2014. 4. Ibuprofen 200 mg 3 tablets at bedtime. Not at this time. 5. Gabapentin 300 mg at bedtime. ALLERGIES Codeine, but the details are not clear. SYSTEMS REVIEW A bit of weight gain over the years but otherwise as noted in the HPI and the Past Medical/Surgical History. PAST MEDICAL/SURGICAL HISTORY SURGERIES: 1. Left knee surgery with residual episodic pain 1976. Other hospitalizations: vaginal delivery. OTHER MAJOR ILLNESSES: 1. Premature menopause at age 33. 2. Episodic GERD currently stable. 3. Osteopenia confirmed on DEXA scan . 4. Anxiety with depressive features. 5. Hyperlipidemia. 6. Overweight. 7. Restless legs, currently stable. 8. Periodontitis, resolved with placement of dentures. 9. Nicotine dependence. 10. Stable echocardiogram 07/07/2010 obtained secondary to atypical chest pain with ejection fractionof 65% PREVENTIVE SERVICES Tobacco: Quit smoking cigarettes in 2013. Quit using e-cigarette since 07/27/2014. Mammogram: 02/23/2010, advised. Pap smear: 07/27/2014. Colon screen: 01/14/[address] Marquis. Recheck plan for 10 years. Depression: Yes. PHQ-9 score 4. Asthma: No. Lipids: 09/02/2014. Tetanus: 2006. Pneumovax non applicable due to age. Influenza: Declined. DEXA scan: 02/23/2010. SOCIAL HISTORY No alcohol. Is not exercising at the present time. FAMILY HISTORY Mother in the memory care unit in the long-term since 2013. Mother has diabetes mellitus and [...] disease. Three daughters with depression. VITAL SIGNS Weight 74 kg. Temperature 36.4, respiratory rate 16, pulse 72, systolic 102, diastolic 60. PHYSICAL EXAMINATION GENERAL: Tired-appearing female. HEENT: Head: No evidence trauma, tenderness, masses. Ears: TMs are frias. Good visualization of landmarks. Nose: Mucosal membranes pink and moist. Oral: No exudates. NECK: Range of motion consistent with patient's stated age, body habitus. Trachea midline. Lymph nodes: No cervical adenopathy. Thyroid: No masses, tenderness, or enlargement. LUNGS: Clear to auscultation. CARDIOVASCULAR: Regular rate and rhythm. ABDOMEN: Bowel sounds present. Soft. The tenderness is primarily in her left lower quadrant and occasionally in her right upper quadrant, but today her exam is stable. No true guarding or rebound. Positive femoral pulses. IMPRESSION/REPORT/PLAN 1. Abdominal pain. 2. Nausea. 3. Hyperlipidemia. 4. Fatigue. 5. Depressive disorder. 6. Overweight. PLAN: While patient's symptoms could indeed be a flare of her anxiety and depression, she is really not interested in changing any of her medication. She will check in to whether or not Abilify might be covered, as if this is not helpful would likely need to change to a different SSRI which might exacerbate her symptomology, especially during the wintertime which is always difficult for her. Will rule out other health issues with an abdominal ultrasound. Will check her CBC, basic metabolic profile, hepatic function studies, amylase, lipase and TSH, following up accordingly. I do not suspect the statin is playing a role as she really has not been taking this product. She does have marked dyslipidemia, and treatment of this issue would be advised but will stabilize the above. Signs and symptoms leading to emergent evaluation are reviewed. Followup is planned after the above has been obtained and assessed or appropriate followup with specialty care providers has been arranged. See the medication reconciliation and preventive services.She and her daughter are comfortable with the above. Spent 20 of the 30-minute visit in discussion. Danica England M.D./melodie Electronically Signed By: DANICA ENGLAND MD On: 03/12/2015 07:33 PM Modified by and Electronically Signed by: DANICA ENGLAND MD On: 03/12/2015 07:33 PM Source: [facility] MHSDOLBEYNONRADSYS Document Id: [id number] ING UPHOLSTERER documented in this encounter Miscellaneous Notes Miscellaneous - Danica England M.D. - 03/10/2015 7:35 PM CST Ambulatory Patient Summary [address] [id number] Visit Information Name: GEMA JAUREGUI [facility] Number: [id number] Current Date: 03/10/2015 19:35:09 Physicians Attending Provider: DANICA ENGLAND MD Primary [...] Tablet(s), Oral, two times aday correct amount *gabapentin (gabapentin 100 mg oral capsule) 3 cap, Oral, once a day *melatonin (Melatonin 5 mg oral tablet) See Instructions 2 tab(s) PO Bedtime *pravastatin (pravastatin 20 mg oral tablet) 1 Tablet(s), Oral, once a day (at bedtime) recheck fasting labs in 6 weeks sertraline (sertraline 100 mg oral tablet) 2 Tablet(s), Oral, once a day * You have let us know that you are not taking this medication as listed. Please talk with your primary care provider or the health care provider who prescribed the medication as soon as possible. Stop Taking the Following Medications: Medication list as of 03-10-15 19:35 Attention: If you have any medications at [...] Electronically Signed By: DANICA ENGLAND MD Signed On:10-MAR-2015 19:34:58 Your Allergies & Intolerances Substance Reaction Symptoms Category Comments codeine Drug Your Problem List Problem Status Onset Comments Dysthymic Disorder Active Premature menopause Active 03/12/1994 Osteopenia Active 07/11/2003 02/21/10 DEXA; 02/23/10 02/23/2010 low normal DEXA Hyperlipidemia Active Restless legs Active Overweight Active DJD (OA) NOS Active Your Upcoming Appointments Date Time Location Provider 03/11/2015 15:30 [facility] Ultrasound [facility] US Room 1 Attention: Contact your local Clinic if further [...] if you dont have one. Go to [email or web address] and click on Create Your Account. Then, follow the directions to complete the online form. Youll be asked for your [facility] number which you can find at the top of this document. Your Goals/Additional instructions: Source: [facility] POWERCHART Document Id: [id number] ING UPHOLSTERER Miscellaneous - Danica England M.D. - 03/10/2015 7:35 PM CST Ambulatory Discharge Medication List [address] [id number] Visit Information Name: GEMA JAUREGUI [facility] Number: [id number] Visit Date: 03/10/2015 19:35:08 Attending Provider: DANICA ENGLAND MD Primary Care [...] Tablet(s), Oral, two times aday correct amount *gabapentin (gabapentin 100 mg oral capsule) 3 cap, Oral, once a day *melatonin (Melatonin 5 mg oral tablet) See Instructions 2 tab(s) PO Bedtime *pravastatin (pravastatin 20 mg oral tablet) 1 Tablet(s), Oral, once a day (at bedtime) recheck fasting labs in 6 weeks sertraline (sertraline 100 mg oral tablet) 2 Tablet(s), Oral, once a day * You have let us know that you are not taking this medication as listed. Please talk with your primary care provider or the health care provider who prescribed the medication as soon as possible. Stop Taking the Following Medications: Medication list as of 03-10-15 19:35 Attention: If you have any medications at [...] Electronically Signed By: DANICA ENGLAND MD Signed On:10-MAR-2015 19:34:58 Additional Information: Source: [facility] POWERCHART Document Id: [id number] ING UPHOLSTERER Miscellaneous - Dominick Bradley L.P.N. - 03/10/2015 10:25 AM CST Adult Professor Of Practice Intake/History Adult Professor Of Practice Intake/History Entered On: 03/10/2015 10:28 SEATING UPHOLSTERER Performed On: 03/10/2015 10:25 SEATING UPHOLSTERER by DOMINICK BRADLEY LPN Intake Chief Complaint : fatigue Temperature Core : 36.4 DegC(Converted to: 97.5 DegF) (LOW) Peripheral Pulse Rate : 72 /min Respiratory Rate : 16 /min Systolic Blood Pressure : 102 mmHg Diastolic Blood Pressure : 60 mmHg NIBP Mean : 74 mmHg BP Location : Left upper extremity Blood Pressure Cuff Size : Regular Actual Weight : 74 kg(Converted to: 163 lb 2 oz) Dosing Weight Clinic : 74 kg DOMINICK BRADLEY LPN - 03/10/2015 10:25 SEATING UPHOLSTERER General Info Languages : Welsh Is Patient Female and 13-50 no hysterectomy : No DOMINICK BRALDEY LPN - 03/10/2015 10:25 SEATING UPHOLSTERER Subjective Pain Symptoms : No DOMINICK BRADLEY LPN - 03/10/2015 10:25 SEATING UPHOLSTERER Dependent Habits Exposure to Tobacco Smoke : Other: former Smoking Status : Former smoker Tobacco 2A : Yes Tobacco Use/Currently Using : No Tobacco Use/Last 30 Days : No Tobacco Use/Last 12 months : No DOMINICK BRADLEY LPN - 03/10/2015 10:25 SEATING UPHOLSTERER Source: [facility] POWERCHART Document Id: [id number] SEATING UPHOLSTERER!25 ING UPHOLSTERER documented in this encounter Plan of Treatment Not on filedocumented as of this encounter Procedures Procedure Name Priority Date/Time Associated Diagnosis Comme nts HEPATIC FUNCTION Routine 03/10/2015 10:50 AM Resu lts for this PANEL, S SEATING UPHOLSTERER procedure are i n the results section. AUTOMATED Routine 03/10/2015 10:50 AM Results for this DIFFERENTIAL, B SEATING UPHOLSTERER procedure ar e in the results section. CBC WITH Routine 03/10/2015 10:50 AM Results for this DIFFERENTIAL, B SEATING UPHOLSTERER procedure ar e in the results section. THYROID-STIMULATING Routine 03/10/2015 10:50 AM R esults for this HORMONE-SENSITIVE SEATING UPHOLSTERER procedure are in (S-TSH) the results section. LIPASE, S/P Routine 03/10/2015 10:50 AM Results for this SEATING UPHOLSTERER procedure are i n the results section. AMYLASE, TOT, S Routine 03/10/2015 10:50 AM Resul ts for this SEATING UPHOLSTERER procedure are i n the results section. BASIC METABOLIC Routine 03/10/2015 10:50 AM Resul ts for this PANEL, S/P SEATING UPHOLSTERER procedure are i n the results section. documented in this encounter Results Automated Differential (03/10/2015 10:50 AM SEATING UPHOLSTERER) P athologist Signature Absolute 3.38 1.70 - POWERCHART Neutrophils 7.00 109L Lymphocytes 2.09 0.90 - POWERCHART 2.90 X109L Monocytes 0.59 0.30 - POWERCHART 0.90 X109L Eosinophils 0.08 0.05 - POWERCHART 0.50 X109L Absolute 0.03 0.00 - POWERCHART Basophil 0.30 X109L Specimen Anatomical Collection Method Collection Time Receive d Time (Source) Location / / Volume Laterality Blood 03/10/2015 10:50 03/10/2015 AM SEATING UPHOLSTERER 10:50 AM SEATING UPHOLSTERER Danica England M.D. LAB BLOOD ADD-ON Performing Organization Address City/State/ZIP Code Phon e Number POWERCHART CBC with Differential (03/10/2015 10:50 AM SEATING UPHOLSTERER) P athologist Signature Leukocytes 6.2 3.4 - 10.5 POWERCHART X109L Erythrocytes 4.41 3.90 - 5.03 POWERCHART P3385L Hemoglobin 12.8 12.0 - 15.5 POWERCHART GDL Hematocrit 39.9 34.9 - 44.5 POWERCHART MCV 90.5 82.0 - 98.0 POWERCHART FL HX RDW 13.8 11.9 - 15.5 POWERCHART Platelet Count 239 150 - 450 POWERCHART X109L Specimen (Source) Anatomical Collection Method Collection Time Re ceived Time Location / / Volume Laterality Blood 03/10/2015 10:50 AM SEATING UPHOLSTERER Danica England M.D. LAB BLOOD ADD-ON Performing Organization Address City/State/ZIP Code Phon e Number POWERCHART Lipase (03/10/2015 10:50 AM SEATING UPHOLSTERER) athologist Signature Lipase, S 34 10 - 73 UL POWERCHART Specimen (Source) Anatomical Collection Method Collection Time Re ceived Time Location / / Volume Laterality Blood 03/10/2015 10:50 AM SEATING UPHOLSTERER Danica England M.D. LAB BLOOD ADD-ON Performing Organization Address City/State/ZIP Code Phon e Number POWERCHART Amylase, Total (03/10/2015 10:50 AM SEATING UPHOLSTERER) P athologist Signature Amylase, Total, 79 26 - 128 POWERCHART S UNITL Specimen (Source) Anatomical Collection Method Collection Time Re ceived Time Location / / Volume Laterality Blood 03/10/2015 10:50 AM SEATING UPHOLSTERER Danica England M.D. LAB BLOOD ADD-ON Performing Organization Address City/State/ZIP Code Phon e Number POWERCHART Hepatic Function Panel (03/10/2015 10:50 AM SEATING UPHOLSTERER) Patholo gist Method Time Signature Alkaline 82 41 - 108 POWERCHART Phosphatase, S UNITL Alanine 34 7 - 45 POWERCHART Amniotransferase, LD UNITL Aspartate 27 8 - 43 POWERCHART Aminotransferase UNITL (AST), S Bilirubin, Direct, S <0.20 <=0.30 POWERCHAR T MGDL Bilirubin, Total, S 0.2 0.1 - 1.0 POWERCHART MGDL Total Protein, S 6.9 6.3 - 7.9 POWERCHART GDL Albumin, S 4.7 3.2 - 5.2 POWERCHART GDL HXGlobulin 2 POWERCHART Specimen (Source) Anatomical Collection Method Collection Time Re ceived Time Location / / Volume Laterality Blood 03/10/2015 10:50 AM SEATING UPHOLSTERER Danica England M.D. LAB BLOOD ADD-ON Performing Organization Address City/State/ZIP Code Phon e Number POWERCHART BMP (Basic Metabolic Panel) (03/10/2015 10:50 AM SEATING UPHOLSTERER) P athologist Signature Anion Gap 12 7 - 15 POWERCHART MMOLL BUN (Blood Urea 19 6 - 21 POWERCHART Nitrogen), S MGDL Chloride, S 102 98 - 107 POWERCHART MMOLL CO2 Total 29 22 - 29 POWERCHART MMOLL Creatinine 0.8 0.6 - 1.1 POWERCHART MGDL Glucose 100 70 - 139 POWERCHART MGDL Calcium, Total, 9.5 8.0 - 10.3 POWERCHART S MGDL Sodium, S 143 135 - 145 POWERCHART MMOLL Potassium, S 4.0 3.6 - 5.2 POWERCHART MMOLL HXeGFR (MDRD) >60 >=60 POWERCHART [id number] eGFR >60 >=60 POWERCHART Black/ [id number] Afghan Specimen (Source) Anatomical Collection Method Collection Time Re ceived Time Location / / Volume Laterality Blood 03/10/2015 10:50 AM SEATING UPHOLSTERER Danica England M.D. LAB BLOOD ADD-ON Performing Organization Address City/State/ZIP Code Phon e Number POWERCHART (ABNORMAL) Thyroid-Stimulating Hormone-Sensitive (s-TSH) (03/10/2015 10:50 AM SEATING UPHOLSTERER) P athologist Signature TSH 4.28 (H) 0.27 - POWERCHART (Thyrotropin) 4.20 MIUL Specimen (Source) Anatomical Collection Method Collection Time Re ceived Time Location / / Volume Laterality Blood 03/10/2015 10:50 AM SEATING UPHOLSTERER Danica England M.D. LAB BLOOD ADD-ON Performing Organization Address City/State/ZIP Code Phon e Number POWERCHART documented in this encounter Visit Diagnoses Not on filedocumented in this encounter Additional Health Concerns Assessment Noted Time PHQ-9 Depression Total Score: 4 07/27/2014 12:26 PM CD T documented as of this encounter
--- OUTSIDE RECORDS SUMMARY | 2021-10-26 16:14 | XMS_ITS | Encounter Summary ---
:1960 Author Organization [facility] Address [address] [place] [address] Care Team Providers Name Role Phone Unavailable Primary Care Provider Unavailable Encounter Details Date Type Department Care Team Description 12/24/2014 Hospital Encounter HX [facility] LAB Ayden England M.D. [address] [place] [address] 021 (Wo rk) Social History Tobacco Use [...] 12/11/2018 relatives? How often do you attend advent or methodist services? Patien t refused 12/11/2018 Do you belong to any clubs or organizations such as Patient refused 12/11/2018 advent groups, unions, fraternal or athletic groups, or [...] Concentration - - Weight - - Height 166 cm (5' 5.35) 12/24/2014 10:42 AM CDT Body Mass Index - - documented in this encounter Nursing Notes Dominick Bradley, L.P.N. - 12/25/2014 3:01 PM CDT Labs 12-24-14 Result card sent. Electronically Signed By: DOMINICK BRADLEY LPN On: 12/25/2014 03:01 PM Source: [facility] POWERCHART Document Id: [id number] documented in this encounter Plan of Treatment Not on filedocumented as of this encounter Procedures Procedure Name Priority Date/Time Associated Comments Diagnosis ASPARTATE Routine 12/24/2014 10:44 Results for this AMINOTRANSFERASE (AST), AM CDT proc edure are in S/P the results section. documented in this encounter Results AST (Aspartate Aminotransferase) (12/24/2014 10:44 AM CDT) [facility] gist Method Time Signature Aspartate 37 8 - 43 POWERCHART Aminotransferase UNITL (AST), S Specimen (Source) Anatomical Collection Method Collection Time Re ceived Time Location / / Volume Laterality Blood 12/24/2014 10:44 AM CDT Danica England M.D. LAB BLOOD ADD-ON Performing Organization Address City/State/ZIP Code Phon e Number POWERCHART documented in this encounter Visit Diagnoses Not on filedocumented in this encounter Additional Health Concerns Assessment Noted Time PHQ-9 Depression Total Score: 4 07/27/2014 12:26 PM CD T documented as of this encounter
--- OUTSIDE RECORDS SUMMARY | 2021-10-26 16:14 | XMS_ITS | Encounter Summary ---
:1960 Author Organization [facility] Address [address] [place] [address] Care Team Providers Name Role Phone Danica England M.D. Primary Care Provider Reason for Visit Reason Comments Med Refill Encounter Details Date Type Department Care Team Description 01/11/2017 Refill Department of Family Medicine, Danica ndiaye M.D. Med Refill [facility], in [facility] [place] [address] [place] [address] [place] [address] [phone] Social History Tobacco Use Types Packs/Day Years [...] How often do you attend jewish or pentecostalism services? Patien t refused 12/11/2018 Do you [...] documented as of this encounter Care Teams Hobbies [employer] Craft[employer] Sales Representative Relationship Specialty Start Date End Date Danica England M.D. PCP - General 08/10/16 01/26/19 documented as of this encounter
--- OUTSIDE RECORDS SUMMARY | 2021-10-26 16:14 | XMS_ITS | Encounter Summary ---
:1960 Author Organization [facility] Address [address] [place] [address] Care Team Providers Name Role Phone Unavailable Primary Care Provider Unavailable Encounter Details Date Type Department Care Team Description 07/27/2014 Hospital Encounter HX NO MAPPING Danica England M.D. [address] [place] [address] 021 (Wo rk) Social History Tobacco Use [...] How often do you attend islam or baptist services? Patien t refused 12/11/2018 [...] documented as of this encounter Miscellaneous Notes Miscellaneous - Conversion, Historical Provider Ser - 07/27/2014 11:59 PM CDT Coding Summary-Paper Based CODING DATE: 08/08/2014 FINAL [facility] STATUS: * Discharged to Home or Self Care PAYOR: [employer] ADMIT DX: REASON FOR VISIT DX: FINAL DX: PRINCIPAL: V76.2 Screening for Malignant Neoplasms of the Cervix SECONDARY: PROCEDURES DOCTOR NAME DATE NOTE: The code number assigned matches the documented diagnosis and / or procedure in the patient's chart. However, the narrative phrase printed from the coding software may appear abbreviated, or result in slightly different terminology. Coded By: MAHENDRA BAZZI Date Saved: 08/08/2014 00:38 am [facility] Document Id: [id number] documented in this encounter Plan of Treatment Not on filedocumented as of this encounter Visit Diagnoses Not on filedocumented in this encounter Additional Health Concerns Assessment Noted Time PHQ-9 Depression Total Score: 4 07/27/2014 12:26 PM CD T documented as of this encounter
--- OUTSIDE RECORDS SUMMARY | 2021-10-26 16:14 | XMS_ITS | Encounter Summary ---
:1960 Author Organization [facility] Address [address] [place] [address] Care Team Providers Name Role Phone Danica England M.D. Primary Care Provider Encounter Details Date Type Department Care Team Description 01/11/2017 Orders Only Department of Family Danica England Hyp othyroidism Primary Medicine, [facility] (Primary Dx) Clinic, in [address] [phone] (Work) [phone] Social History Tobacco Use Types Packs/Day Years [...] 12/11/2018 relatives? How often do you attend methodist or yazidi services? Patien t refused 12/11/2018 Do you belong to any clubs or organizations such as Patient refused 12/11/2018 methodist groups, unions, fraternal or athletic groups, or [...] as of this encounter Visit Diagnoses Diagnosis Hypothyroidism Primary - Primary documented in this encounter Additional Health Concerns Assessment Noted Time PHQ-9 Depression Total Score: 3 07/13/2016 12:46 PM CD T documented as of this encounter Care Teams Fruit Washer Relationship Specialty Start Date End Date Danica England M.D. PCP - General 08/10/16 01/26/19 documented as of this encounter
--- OUTSIDE RECORDS SUMMARY | 2021-10-26 16:14 | XMS_ITS | Encounter Summary ---
:1960 Author Organization [facility] Address [address] [place] [address] Care Team Providers Name Role Phone Unavailable Primary Care Provider Unavailable Encounter Details Date Type Department Care Team Description 04/21/2015 Hospital Encounter HX [facility] FAMILY[facility]A Ayden England M.D. [address] [place] [address] [phone] (Wo rk) Social History Tobacco [...] How often do you attend mormon or scientology services? Patien t refused 12/11/2018 [...] Sign Reading Time Taken Comments Blood Pressure 120/70 04/21/2015 8:55 AM BUTTON INSPECTOR Pulse 80 04/21/2015 8:55 AM BUTTON INSPECTOR Temperature - - Respiratory Rate 16 04/21/2015 8:55 AM BUTTON INSPECTOR Oxygen Saturation - - Inhaled Oxygen Concentration - - Weight 74 kg (163 lb 2.3 oz) 04/21/2015 8:55 AM BUTTON INSPECTOR Height 166 cm (5' 5.35) 04/21/2015 8:49 AM BUTTON INSPECTOR Body Mass Index 26.85 04/21/2015 8:49 AM BUTTON INSPECTOR documented in this encounter Progress Notes Danica England M.D. - 04/21/2015 8:49 AM CST [id number] CHIEF COMPLAINT/REASON FOR VISIT Followup. HISTORY OF PRESENT ILLNESS A 54-year-old female, presents to clinic for a followup since she began the Abilify she is feeling significantly better. Is making plans. Has not totally started her exercise program but it is in process. She had a cold and this did lead to some decreased energy level but she felt was related to a cold and not her mood. Is not accompanied by her daughter today as she was able to drive herself to the clinic. Is making plans for the upcoming the and has episodically had a bit of drainage from her eyes. It is not a pink-eye type quality but she wonders if there is anything that might bedone. Is sleeping better taking her medicines at night. All in all is feeling near her baseline. EMRreviewed. MEDICATIONS 1. Sertraline 200 mg daily increased 06/05/2013. 2. Bupropion 200 mg orally twice per day. 3. Pravastatin 20 mg daily. Prescription given 12/15/2014. 4. Ibuprofen 200 mg 3 tablets at bedtime. Not at this time. 5. Gabapentin 300 mg at bedtime. Prescription given 04/21/2015. 6. Abilify 2 mg daily, Prescription given 04/21/2015. 7. Flonase 2 squirts each nostril daily, prescription given 04/21/2015. ALLERGIES Codeine but the details are not clear. SYSTEMS REVIEW Negative review of major organ systems apart from that noted in the HPI and Past Medical/Surgical History. PAST MEDICAL/SURGICAL HISTORY SURGERIES: [...] for 10 years. Depression: Yes. PHQ-9 score 8. Asthma: No. Lipids: 09/02/2014. Tetanus: 2006. Pneumovax non applicable due to age. Influenza: Declined. DEXA scan: 02/23/2010. FAMILY HISTORY Mother in the memory care unit in the long term since 2013. Mother has diabetes mellitus and [...] with bipolar disease. Three daughters with depression. SOCIAL HISTORY No alcohol. VITAL SIGNS Weight 74 kg. Temperature 36.5, respiratory rate 16, pulse 80, systolic 120, diastolic 70. PHYSICAL EXAMINATION GENERAL: Neatly dressed, well groomed. HEENT: Head: No evidence of trauma, tenderness, masses. Ears: TMs are frias. Good visualization of landmarks. Eyes: PERRL. Funduscopic exam grossly stable. Nose: Mucosal membranes slightly boggy. Oral: No exudates. Good fitting dentures. NECK: Range of motion consistent with patient's stated age, body habitus. No JVD. No thyroid masses.No adenopathy. LUNGS: Clear to auscultation. CARDIOVASCULAR: Regular rate and rhythm. MENTAL: Speech is of normal rate and volume, articulate, coherent, spontaneous with no notation of abnormalities. Thought processes reveal intact abstract reasoning and computation. No loose tangentialcircumstantial thoughts. No hallucinations. No delusions. No preoccupation with violence. No homicidal or suicidal ideations. No ruminations. Excellent insight into situation and illness process. Oriented to person, place and time. Recent and remote memory are intact. Attention span and concentration are at baseline. Language and fund of knowledge suggest average intellect. Mood and affect reflect noevidence of depression, anxiety, agitation, hypomania or emotional lability. IMPRESSION/REPORT/PLAN 1. Anxiety with depression, stabilizing. 2. Memory complaints, resolved. 3. Lacrimal duct episodic issues, suspect related to allergic rhinitis. PLAN: Supportive measures discussed in detail. See the medication reconciliation and preventive services. Patient is near her baseline. Therefore, will give prescription of all of her above medicines and recommend following up in a couple of months for a recheck. Encouraged her lifestyle changes. Signs and symptoms to lead to urgent evaluation are reviewed. She is comfortable with this plan and will follow up accordingly. Danica England M.D./melodie Electronically Signed By: DANICA ENGLAND MD On: 04/28/2015 01:49 PM Modified by and Electronically Signed by: DANICA ENGLAND MD On: 04/28/2015 01:49 PM Source: [facility] MHSDOLBEYNONRADSYS Document Id: [id number] ON INSPECTOR documented in this encounter Miscellaneous Notes Nazcellaneous - Lindsey Tian - 03/20/2016 11:10 AM CST *General Message From: LINDSEY TIAN IMPROVEMENT NURSE To: EGMA JAUREGUI Sent: 03/20/2016 11:10:16 BUTTON INSPECTOR Subject: *General Message Gema, According to our records you are coming due for an office visit with review of medical conditions as well as medication refills with Dr. England. Please contact the clinic to schedule an office visit at [phone]. Thank you. Source: [facility] POWERCHART Document Id: [id number] Miscellaneous - Danica England M.D. - 04/21/2015 12:09 PM CST Ambulatory Patient Summary [address] [id number] Visit Information Name: SERENE JAUREGUIA [facility] Number: [id number] Current Date: 04/21/2015 12:09:47 Physicians Attending Provider: DANICA ENGLAND MD Primary [...] Take Indications/Special Instructions/Comments/Notes for Patient Medication Changes/Routing ARIPiprazole (Abilify 2 mg oral tablet) 1 Tablet(s), Oral, once a day Routed to [facility] [place] [address] buPROPion (buPROPion SR 200 mg/12 hour oral sustained release tablet) 1 Tablet(s), Oral, two times aday correct amount fluticasone nasal (Flonase 50 mcg/inh nasal spray) 2 Brave(s), Nostrils(Both), once a day New Routedto [facility] [place] [address] gabapentin (gabapentin 100 mg oral capsule) 3 cap, Oral, once a day Routed to [facility] [address] [place] [address] melatonin (Melatonin 5 mg oral tablet) See Instructions 2 tab(s) PO Bedtime pravastatin (pravastatin 20 mg oral tablet) 1 Tablet(s), Oral, once a day (at bedtime) recheck fasting labs in 6 weeks sertraline (sertraline 100 mg oral tablet) 2 Tablet(s), Oral, once a day Stop Taking the Following Medications: Medication list as of 04-21-15 12:09 Attention: If you have any medications at [...] Electronically Signed By: DANICA ENGLAND MD Signed On:21-APR-2015 12:09:36 Your Allergies & Intolerances Substance Reaction Symptoms [...] if you dont have one. Go to [email or web address] and click on Create Your Account. Then, follow the directions to complete the online form. Youll be asked for your [facility] number which you can find at the top of this document. Your Goals/Additional instructions: Source: [facility] POWERCHART Document Id: [id number] ON INSPECTOR Miscellaneous - Danica England M.D. - 04/21/2015 12:09 PM CST Ambulatory Discharge Medication List [address] [id number] Visit Information Name: GEMA JAUREGUI [facility] Number: [id number] Visit Date: 04/21/2015 12:09:45 Attending Provider: DANICA ENGLAND MD Primary Care [...] Take Indications/Special Instructions/Comments/Notes for Patient Medication Changes/Routing ARIPiprazole (Abilify 2 mg oral tablet) 1 Tablet(s), Oral, once a day Routed to [facility] [place] [address] buPROPion (buPROPion SR 200 mg/12 hour oral sustained release tablet) 1 Tablet(s), Oral, two times aday correct amount fluticasone nasal (Flonase 50 mcg/inh nasal spray) 2 Brave(s), Nostrils(Both), once a day New Routedto [facility] [place] [address] gabapentin (gabapentin 100 mg oral capsule) 3 cap, Oral, once a day Routed to [facility] [address] melatonin (Melatonin 5 mg oral tablet) See Instructions 2 tab(s) PO Bedtime pravastatin (pravastatin 20 mg oral tablet) 1 Tablet(s), Oral, once a day (at bedtime) recheck fasting labs in 6 weeks sertraline (sertraline 100 mg oral tablet) 2 Tablet(s), Oral, once a day Stop Taking the Following Medications: Medication list as of 04-21-15 12:09 Attention: If you have any medications at [...] Electronically Signed By: DANICA ENGLAND MD Signed On:21-APR-2015 12:09:36 Additional Information: Source: [facility] POWERCHART Document Id: [id number] ON INSPECTOR Miscellaneous - Danica England M.D. - 04/21/2015 12:04 PM CST PHQ-9 PHQ-9 Entered On: 04/21/2015 12:04 BUTTON INSPECTOR Performed On: 04/21/2015 12:04 BUTTON INSPECTOR by DANICA ENGLAND MD PHQ-9 Little interest or pleasure in doing things : Several days Feeling down, depressed, or hopeless : Not at all Trouble falling or staying asleep, or sleeping too much : Not at all Feeling tired or having little energy : Several days Poor appetite or overeating : Several days Feeling bad about yourself or that you are a failure : Not at all Trouble concentrating on things : Several days Moving or speaking slowly; restless or fidgety : Not at all Thoughts that you would be better off /hurting self : Not at all PHQ-9 Calculated Score : 4 Problems make work, home, or dealing with others : Somewhat difficult DANICA ENGLAND MD - 04/21/2015 12:04 BUTTON INSPECTOR Source: [employer] Document Id: [id number] BUTTON INSPECTOR!13 ON INSPECTOR Miscellaneous - Dominick Bradley L.P.N. - 04/21/2015 8:55 AM CST Adult Call Or Contact Centre Coach Intake/History Adult Call Or Contact Centre Coach Intake/History Entered On: 04/21/2015 8:55 BUTTON INSPECTOR Performed On: 04/21/2015 8:55 BUTTON INSPECTOR by DOMINICK BRALDEY LPN Intake Chief Complaint : med check Temperature Core : 36.5 DegC(Converted to: 97.7 DegF) Peripheral Pulse Rate : 80 /min Respiratory Rate : 16 /min Systolic Blood Pressure : 120 mmHg Diastolic Blood Pressure : 70 mmHg NIBP Mean : 87 mmHg BP Location : Left upper extremity Blood Pressure Cuff Size : Regular Actual Weight : 74 kg(Converted to: 163 lb 2 oz) Dosing Weight Clinic : 74 kg DOMINICK BRADLEY LPN - 04/21/2015 8:55 BUTTON INSPECTOR General Info Languages : Greek Is Patient Female and 13-50 no hysterectomy : No DOMINICK BRADLEY LPN - 04/21/2015 8:55 BUTTON INSPECTOR Subjective Pain Symptoms : No DOMINICK BRADLEY LPN - 04/21/2015 8:55 BUTTON INSPECTOR Dependent Habits Exposure to Tobacco Smoke : Other: former Smoking Status : Former smoker Tobacco 2A : Yes Tobacco Use/Currently Using : No Tobacco Use/Last 30 Days : No Tobacco Use/Last 12 months : No DOMINICK BRADLEY LPN - 04/21/2015 8:55 BUTTON INSPECTOR Source: [employer] Document Id: [id number] BUTTON INSPECTOR!25 ON INSPECTOR documented in this encounter Plan of Treatment Not on filedocumented as of this encounter Visit Diagnoses Not on filedocumented in this encounter Additional Health Concerns Assessment Noted Time PHQ-9 Depression Total Score: 4 04/21/2015 12:04 PM CS T documented as of this encounter
--- OUTSIDE RECORDS SUMMARY | 2021-10-26 16:14 | XMS_ITS | Encounter Summary ---
:1960 Author Organization [facility] Address [address] [place] [address] Care Team Providers Name Role Phone Unavailable Primary Care Provider Unavailable Encounter Details Date Type Department Care Team Description 11/06/2013 Hospital Encounter HX [facility] LAB Ayden England M.D. [address] [place] [address] 021 (Wo rk) Social History Tobacco Use [...] 12/11/2018 relatives? How often do you attend samaritan or jainism services? Patien t refused 12/11/2018 Do you belong to any clubs or organizations such as Patient refused 12/11/2018 samaritan groups, unions, fraternal or athletic groups, or [...] Concentration - - Weight - - Height 169 cm (5' 6.54) 11/06/2013 10:09 AM CDT Body Mass Index - - documented in this encounter Nursing Notes Dominick Bradley, L.P.N. - 11/07/2013 11:28 AM CDT Labs 11-06-13 Result card sent. Electronically Signed By: DOMINICK BRADLEY LPN On: 11/07/2013 11:28 AM Source: [facility] POWERCHART Document Id: [id number] documented in this encounter Miscellaneous Notes Telephone Encounter - Conversion, Historical Provider Ser - 12/25/2013 4:38 PM CDT *Phone Message Document Contains Addenda Addendum by DOMINICK BRADLEY LPN on 25 December 2013 17:34:27 CDT Attempted to call, left message to call back. From: MARLEN OGDEN (GRADY England Nurse) To: GRADY England Nurse; Sent: 12/25/2013 16:38:11 CDT Subject: *Phone Message Caller is: (x ) Patient ( ) Mother ( ) Father ( ) Spouse ( ) Daughter ( ) Son ( ) Pharmacy ( ) Other: Physician: Patient MRN #: Reason for Call: Message: william aragoning to speak to nurse b patient checking on a medication refill a r call her back at [phone] Advice/Action: Source used: ( ) Verbalizes understanding of instructions ( ) Instructed to call back if symptoms worsen or do not resolve ( ) Refused to see provider ( ) Appointment Scheduled ( ) OK to leave message on voice mail ( ) Patient told to expect return call: ( ) today ( ) tomorrow ( ) next work day ( ) Patient's email ( ) Patient told physician out of office, will call upon return call on ( ) ( ) Patient told physician out of office, routed to other physician ( ) Other ( ) Call back telephone number ( ) Call back cell phone number ( ) Source: [facility] Acid LabsCHART Document Id: [id number] documented in this encounter Plan of Treatment Not on filedocumented as of this encounter Procedures Procedure Name Priority Date/Time Associated Comments Diagnosis LIPID PANEL, S Routine 11/06/2013 10:28 Results f or this AM CDT procedure are i n the results section. ASPARTATE Routine 11/06/2013 10:28 Results for this AMINOTRANSFERASE (AST), AM CDT proc edure are in S/P the results section. documented in this encounter Results (ABNORMAL) Lipid Panel (11/06/2013 10:28 AM CDT) [facility] Method Time Signature Cholesterol, Total 289 (H) 0 - 200 POWERCHART MGDL HX HDL 48.0 40.0 - POWERCHART 60.0 MGDL Triglycerides 274 (H) 0 - 150 POWERCHART MGDL Calculated LDL 186 (H) 0 - 100 POWERCHART MGDL Specimen (Source) Anatomical Collection Method Collection Time Re ceived Time Location / / Volume Laterality Blood 11/06/2013 10:28 AM CDT Danica England M.D. LAB BLOOD ADD-ON Performing Organization Address City/State/ZIP Code Phon e Number POWERCHART AST (Aspartate Aminotransferase) (11/06/2013 10:28 AM CDT) [facility] gist Method Time Signature Aspartate 31 8 - 43 POWERCHART Aminotransferase UNITL (AST), S Specimen (Source) Anatomical Collection Method Collection Time Re ceived Time Location / / Volume Laterality Blood 11/06/2013 10:28 AM CDT Danica England M.D. LAB BLOOD ADD-ON Performing Organization Address City/State/ZIP Code Phon e Number POWERCHART documented in this encounter Visit Diagnoses Not on filedocumented in this encounter Additional Health Concerns Assessment Noted Time PHQ-9 Depression Total Score: 4 06/04/2013 12:09 PM CD T documented as of this encounter
--- OUTSIDE RECORDS SUMMARY | 2021-10-26 16:14 | XMS_ITS | Encounter Summary ---
:1960 Author Organization [facility] Address [address] [place] [address] Care Team Providers Name Role Phone Danica England M.D. Primary Care Provider Encounter Details Date Type Department Care Team Description 12/26/2016 Orders Only Department of Family Shelley England M.D. [address], [address] [place] [address] [place] [address] Social History Tobacco Use Types Packs/Day [...] How often do you attend jewish or mormon services? Patien t refused 12/11/2018 Do you [...] on filedocumented as of this encounter Results S-TSH (Thyroid-Stimulating Hormone - Sensitive) (09/20/2017 10:14 AM CDT) P athologist Signature TSH, Sensitive 0.8 0.3 - 4.2 09/20/2017 [facility] mIU/L 1:38 PM CDT [facility] Comment: Biotin has been identified by the iraj felix as a potential interfering substance. ??Higher concentr ations of biotin may be found in multivitamins, hair/nail supple ments, and workout supplements. ??If the result does not [facility] clinical observations, repeat testing after patient refrains fr om the use of supplements for at least 12 hours. Specimen Anatomical Collection Method Collection Time Receive d Time (Source) Location / / Volume Laterality Blood 09/20/2017 10:14 09/20/2017 AM CDT 12:55 PM CDT Danica England M.D. LAB BLOOD ADD-ON Performing Organization Address City/State/ZIP Code Phon e Number [facility] [address] [place] [address] LAB documented in this encounter Visit Diagnoses Diagnosis Hypothyroidism documented in this encounter Additional Health Concerns Assessment Noted Time PHQ-9 Depression Total Score: 3 07/13/2016 12:46 PM CD T documented as of this encounter Care Teams Hand Therapist Relationship Specialty Start Date End Date Danica England M.D. PCP - General 08/10/16 01/26/19 documented as of this encounter
--- OUTSIDE RECORDS SUMMARY | 2021-10-26 16:14 | XMS_ITS | Encounter Summary ---
:1960 Author Organization [facility] Address [address] [place] [id number] Care Team Providers Name Role Phone Unavailable Primary Care Provider Unavailable Encounter Details Date Type Department Care Team Description 03/24/2015 Hospital Encounter HX [facility] Ayden England M.D. [address] [place] [id number] (Wo rk) Social History Tobacco Use [...] How often do you attend congregational or yazidi services? Patien t refused 12/11/2018 [...] Reading Time Taken Comments Blood Pressure 98/60 03/24/2015 8:59 AM [facility] Pulse 76 03/24/2015 8:59 AM [facility] Temperature - - Respiratory Rate 16 03/24/2015 8:59 AM [facility] Oxygen Saturation - - Inhaled Oxygen Concentration - - Weight 72 kg (158 lb 11.7 oz) 03/24/2015 8:59 AM [facility] Height 166 cm (5' 5.35) 03/24/2015 8:56 AM [facility] Body Mass Index 26.13 03/24/2015 8:56 AM [facility] documented in this encounter Progress Notes Danica England M.D. - 03/24/2015 8:55 AM CST [id number] CHIEF COMPLAINT/REASON FOR VISIT Followup. HISTORY OF PRESENT ILLNESS A 54-year-old female, presents to the clinic to follow up her recent clinic appointment, laboratory evaluation and ultrasound. Continues to feel quite fatigued. Is accompanied by her daughter. Continues to have anxiety. Has problems focusing and is worried that she might have memory difficulties. Is ta roopa her medicines as before. She finds when she thinks about things she becomes anxious. Has a stomachache. Is not eating quite as healthfully as she had in the past. Is not doing any exercise, although she does have a daughter who is encouraging her to become a bit more active. States when she feelsbetter she is planning to join a gym. EMR reviewed. MEDICATIONS 1. Sertraline 200 mg daily increased 06/05/2013. 2. Bupropion 200 mg orally twice per day. 3. Pravastatin 20 mg daily. Prescription given 12/15/2014. 4. Ibuprofen 200 mg 3 tablets at bedtime. Not at this time. 5. Gabapentin 300 mg at bedtime. 6. Abilify 2 mg daily, Rx given 03/24/2015. ALLERGIES Codeine, but the details are not clear. SYSTEMS REVIEW See the HPI and the past medical/surgical history. Otherwise negative review of major organ systems. PAST MEDICAL/SURGICAL HISTORY SURGERIES: 1. Left knee [...] in the memory care unit in the group home since 2013. Mother has diabetes mellitus and [...] SOCIAL HISTORY No alcohol. VITAL SIGNS Weight 72 kg. Temperature 36.5, respiratory rate 16, pulse 76, systolic 98, diastolic 60. PHYSICAL EXAMINATION GENERAL: Neatly dressed, well-groomed but somewhat tired in appearance. MENTAL: Speech is of normal rate and volume, articulate but not as forthcoming as on her typical conversations. Coherent, spontaneous with no notation of abnormalities. Thought processes reveal primarily concrete thinking at this time. No loose tangential circumstantial thoughts. No hallucinations. No delusions. No preoccupation with violence. No homicidal or suicidal ideations. Marked psychosocial somatic ruminations. Gaining insight into situation and illness process. Oriented to person, place andtime. Recent and remote memory are intact. Attention span and concentration are decreased. Language and fund of knowledge suggest average intellect. Mood and affect reflect evidence of depression, anxiety. No agitation, no hypomania, and some emotional lability. IMPRESSION/REPORT/PLAN 1. Anxiety with depression. 2. Fatigue. 3. Memory complaints. 4. Borderline TSH. PLAN: Supportive measures discussed in detail. Will recommend checking TPO antibodies, following up accordingly. Will add Abilify. Risks and benefits of medications discussed. All questions answered. Of note, her mother, who had other psychiatric issues, was on this medicine and did have increase in her glucose, albeit she was at a higher dosage than the patient herself is planning to utilize. Will therefore recheck her laboratory evaluation at her upcoming appointment in 1 month. Signs and symptomsleading to urgent evaluation are reviewed. She will begin an exercise program with walking with her daughter 15 minutes each day. She will make attempts to improve her diet which her daughter does believe she would be able to assist. Please see the medication reconciliation and preventive services. She and her daughter are comfortable with this plan. Spent the 25-minute visit in discussion. Danica England M.D./melodie Electronically Signed By: DANICA ENGLAND MD On: 04/09/2015 07:54 AM Modified by and Electronically Signed by: DANICA ENGLAND MD On: 04/09/2015 07:54 AM Source: [facility] [email or web address] Document Id: [id number] [facility] documented in this encounter Nursing Notes Dominick Bradley L.P.N. - 03/25/2015 12:55 PM CST Labs 03-24-15 Result card sent. Electronically Signed By: DOMINICK BRADLEY LPN On: 03/25/2015 12:55 PM Source: [facility] POWERCHART Document Id: [id number] [facility] documented in this encounter Miscellaneous Notes Miscellaneous - Danica England M.D. - 03/24/2015 2:14 PM CST Ambulatory Patient Summary [address] [id number] Visit Information Name: GEMA JAUREGUI [facility] Number: [id number] Current Date: 03/24/2015 14:13:59 Physicians Attending Provider: DANICA ENGLAND MD Primary [...] tablet) 1 Tablet(s), Oral, once a day New Routed to [facility] [address] [place] [address] buPROPion (buPROPion SR 200 mg/12 hour oral sustained release tablet) 1 Tablet(s), Oral, two times aday correct amount gabapentin (gabapentin 100 mg oral capsule) 3 cap, Oral, once a day melatonin (Melatonin 5 mg oral tablet) See Instructions 2 tab(s) PO Bedtime pravastatin (pravastatin 20 mg oral tablet) 1 Tablet(s), Oral, once a day (at bedtime) recheck fasting labs in 6 weeks sertraline (sertraline 100 mg oral tablet) 2 Tablet(s), Oral, once a day Stop Taking the Following Medications: Medication list as of 03-24-15 14:14 Attention: If you have any medications at [...] Electronically Signed By: DANICA ENGLAND MD Signed On:24-MAR-2015 14:13:48 Your Allergies & Intolerances Substance Reaction Symptoms Category Comments codeine Drug Your Problem List Problem Status Onset Comments Dysthymic Disorder Active Premature menopause Active 03/12/1994 Osteopenia Active 07/11/2003 02/21/10 DEXA; 02/23/10 02/23/2010 low normal DEXA Hyperlipidemia Active Restless legs Active Overweight Active DJD (OA) NOS Active Depression Anxiety Active Your Upcoming Appointments Date Time Location Provider 04/21/2015 08:45 [facility] [address] [facility] MD Attention: Contact your local Clinic if further [...] if you dont have one. Go to [email or web address] and click on Create Your Account. Then, follow the directions to complete the online form. Dania be asked for your [facility] number which you can find at the top of this document. Your Goals/Additional instructions: Source: [facility] POWERCHART Document Id: [id number] [facility] Miscellaneous - Danica England M.D. - 03/24/2015 2:13 PM CST Ambulatory Discharge Medication List [address] [id number] Visit Information Name: GEMA JAUREGUI [facility] Number: [id number] Visit Date: 03/24/2015 14:13:58 Attending Provider: DANICA ENGLAND MD Primary Care [...] tablet) 1 Tablet(s), Oral, once a day New Routed to [facility] [place] [address] [place] [address] buPROPion (buPROPion SR 200 mg/12 hour oral sustained release tablet) 1 Tablet(s), Oral, two times aday correct amount gabapentin (gabapentin 100 mg oral capsule) 3 cap, Oral, once a day melatonin (Melatonin 5 mg oral tablet) See Instructions 2 tab(s) PO Bedtime pravastatin (pravastatin 20 mg oral tablet) 1 Tablet(s), Oral, once a day (at bedtime) recheck fasting labs in 6 weeks sertraline (sertraline 100 mg oral tablet) 2 Tablet(s), Oral, once a day Stop Taking the Following Medications: Medication list as of 03-24-15 14:13 Attention: If you have any medications at [...] Electronically Signed By: DANICA ENGLAND MD Signed On:24-MAR-2015 14:13:48 Additional Information: Source: [facility] [place] Document Id: [id number] [facility] Miscellaneous - Danica England M.D. - 03/24/2015 2:08 PM CST PHQ-9 PHQ-9 Entered On: 03/24/2015 14:08 [facility] Performed On: 03/24/2015 14:08 [facility] by DANICA ENGLAND MD PHQ-9 Little interest or pleasure in doing things : Several days Feeling down, depressed, or hopeless : Several days Trouble falling or staying asleep, or sleeping too much : Several days Feeling tired or having little energy : Several days Poor appetite or overeating : Several days Feeling bad about yourself or that you are a failure : Several days Trouble concentrating on things : Several days Moving or speaking slowly; restless or fidgety : Several days Thoughts that you would be better off /hurting self : Not at all PHQ-9 Calculated Score : 8 Problems make work, home, or dealing with others : Somewhat difficult DANICA ENGLAND MD - 03/24/2015 14:08 [facility] Source: [facility] [place] Document Id: [id number] [facility]!13 [facility] Miscellaneous - Dominick Bradley L.PBrigitteNBrigitte - 03/24/2015 8:59 AM CST Adult Program Management Intern Intake/History Adult Program Management Intern Intake/History Entered On: 03/24/2015 9:01 [facility] Performed On: 03/24/2015 8:59 [facility] by DOMINICK BRADLEY LPN Intake Chief Complaint : follow up Temperature Core : 36.5 DegC(Converted to: 97.7 DegF) Peripheral Pulse Rate : 76 /min Respiratory Rate : 16 /min Systolic Blood Pressure : 98 mmHg Diastolic Blood Pressure : 60 mmHg NIBP Mean : 73 mmHg BP Location : Left upper extremity Blood Pressure Cuff Size : Regular Actual Weight : 72 kg(Converted to: 158 lb 12 oz) Dosing Weight Clinic : 72 kg MADHAV DOMINICK FRANKLIN LPN - 03/24/2015 8:59 [facility] General Info Languages : Nigerien Is Patient Female and 13-50 no hysterectomy : No MADHAVDOMINICK RIGOBERTO AYERS - 03/24/2015 8:59 [facility] Subjective Pain Symptoms : No MADHAVDOMINICK RIGOBERTO AYERS - 03/24/2015 8:59 [facility] Dependent Habits Exposure to Tobacco Smoke : Other: former Smoking Status : Former smoker Tobacco 2A : Yes Tobacco Use/Currently Using : No Tobacco Use/Last 30 Days : No Tobacco Use/Last 12 months : No DOMINICK BRADLEY LPN - 03/24/2015 8:59 [facility] Source: [facility] POWERCHART Document Id: [id number] [facility]!25 [facility] documented in this encounter Plan of Treatment Not on filedocumented as of this encounter Procedures Procedure Name Priority Date/Time Associated Comments Diagnosis THYROPEROXIDASE (TPO) Routine 03/24/2015 9:25 Res ults for this ABS, S AM [facility] procedure are i n the results section. documented in this encounter Results Thyroperoxidase (TPO) Antibodies (03/24/2015 9:25 AM [facility]) [facility] gist Method Time Signature Thyroperoxidase Ab, 2.5 <9.0 POWERCHART S INTUML Comment: Test Performed by: [place] [address] Duct Layer Supervisor: Enzo Ricci II, M.D., Ph.D. Specimen (Source) Anatomical Collection Method Collection Time Re ceived Time Location / / Volume Laterality Blood 03/24/2015 9:25 AM [facility] Danica England M.D. LAB BLOOD ADD-ON Performing Organization Address City/State/ZIP Code Phon e Number POWERCHART documented in this encounter Visit Diagnoses Not on filedocumented in this encounter Additional Health Concerns Assessment Noted Time PHQ-9 Depression Total Score: 8 03/24/2015 2:08 PM [facility] documented as of this encounter
--- OUTSIDE RECORDS SUMMARY | 2021-10-26 16:14 | XMS_ITS | Encounter Summary ---
:1960 Author Organization [facility] Address [address] [place] [id number] Care Team Providers Name Role Phone Unavailable Primary Care Provider Unavailable Encounter Details Date Type Department Care Team Description 09/02/2014 Hospital Encounter HX [facility] Ayden England M.D. [address] [place] [address] [phone] (Wo rk) Social History Tobacco [...] How often do you attend orthodox or druze services? Patien t refused 12/11/2018 Do you [...] Sign Reading Time Taken Comments Blood Pressure 106/62 09/02/2014 10:18 AM CDT Pulse 72 09/02/2014 10:18 AM CDT Temperature - - Respiratory Rate 12 09/02/2014 10:18 AM CDT Oxygen Saturation - - Inhaled Oxygen Concentration - - Weight 74.5 kg (164 lb 3.9 oz) 09/02/2014 10:18 AM CDT Height 166 cm (5' 5.35) 09/02/2014 10:00 AM CDT Body Mass Index 27.04 09/02/2014 10:00 AM CDT documented in this encounter Progress Notes Danica England M.D. - 09/03/2014 12:00 AM CDT [id number] Patient's total cholesterol is 362, triglycerides 181, LDL 274. Would recommend following up in the clinic to discuss changing her medications. Her rheumatologic evaluation was negative. Card is sent to patient in regard to this issue. Danica England M.D./melodie Electronically Signed By: DANICA ENGLAND MD On: 09/06/2014 12:02 PM Modified by and Electronically Signed by: DANICA ENGLAND MD On: 09/06/2014 12:02 PM Source: [facility] MHSDOLBEYNONRADSYS Document Id: [id number] Danica England M.D. - 09/02/2014 9:58 AM CDT [id number] CHIEF COMPLAINT/REASON FOR VISIT Several issues. HISTORY OF PRESENT ILLNESS A 54-year-old female presents to clinic to recheck her fasting cholesterol. She felt she was fastingat the time of her appointment 07/27/2014 but when she got out to her car she realized she had eatena fair amount just prior to her laboratory evaluation and while she believes her cholesterol may indeed be elevated, she suspects it is not quite as impressively high as it was at her last evaluation and would really like to recheck this with a true fasting evaluation. She has been having more pains in her fingers, feels like they are stiff and they are a bit swollen primarily at the tips with any type of activity. This has been getting worse over the last few years. Her toes feel fine. She does have restless legs, has tried several eizr-spn-scdslum remedies with no significant relief of her symptoms. She is really not interested in taking any medication unless absolutely essential. She has taken some ibuprofen at bedtime in the past and this had been helpful but is not as helpful as it once was.She did have early premature menopause. She had smoked, quitting in 2013 and is at this time no longer using any E cigarettes. EMR reviewed. MEDICATIONS 1. Sertraline 200 mg daily increased 06/05/2013. 2. Bupropion 200 mg orally twice per day. 3. Pravastatin 20 mg daily. 4. Ibuprofen 200 mg 3 tablets at bedtime. Not at this time. PREVENTIVE SERVICES Tobacco: Quit smoking cigarettes in 2013. Quit using e-cigarette since 07/27/2014. Mammogram: 02/23/2010, advised. Pap smear: 07/27/2014. Colon screen: 01/14/[address] Marquis. Recheck plan for 10 years. Depression: Yes. PHQ-9 score 4. Asthma: No. Lipids: 09/02/2014. Tetanus: 2006. Pneumovax non applicable due to age. Influenza Non applicable secondary to time of year. DEXA scan: 02/23/2010. VITAL SIGNS Weight 74.5 kg. Temperature 36.4, respiratory rate 12, pulse 72, systolic 106, diastolic 62. PHYSICAL EXAMINATION GENERAL: Neatly dressed, well groomed. MUSCULOSKELETAL: Positive radial ulnar pulses. Joiner is intact. Degenerative changes more marked on the PIP and DIP joint spaces. A bit more inflammation is noted surrounding the DIP joint space of the right index finger but no gross infection. Toes with some mild degenerative changes consistent with patient's stated age, body habitus. Positive dorsal, pedal, posterior tib pulses. Gait smooth, easy. IMPRESSION/REPORT/PLAN 1. Hyperlipidemia unstable. 2. Restless legs syndrome unstable. 3. Arthralgias unstable. 4. Overweight unstable. 5. History of tobacco use. PLAN: Given the arthralgias with her history of premature menopause, cannot rule out the possibilityshe could indeed have an autoimmune disorder. Therefore, will recommend checking a sedimentation rate, CRP, rheumatoid factor and PEDRO, following up accordingly. Will also recheck her lipid profile as she is truly fasting today and adjust her medications accordingly. Supportive measures were discussed in detail as all of the above could indeed be related to a degenerative arthritis related to the factshe has had premature menopause. She verbalizes understanding and will follow up if any change occurs. Spent 20 of the 25 minute visit in discussion. Danica England M.D./melodie Electronically Signed By: DANICA ENGLAND MD On: 09/06/2014 12:12 PM Modified by and Electronically Signed by: DANICA ENGLAND MD On: 09/06/2014 12:12 PM Source: [facility] MHSDOLBEYNONRADSYS Document Id: [id number] documented in this encounter Nursing Notes Dominick Bradley L.P.N. - 09/07/2014 9:10 AM CDT Labs 09-02-14 Result card sent. Electronically Signed By: DOMINICK BRADLEY LPN On: 09/07/2014 09:11 AM Source: [facility] POWERCHART Document Id: [id number] documented in this encounter Miscellaneous Notes Miscellaneous - Danica England M.D. - 09/02/2014 12:44 PM CDT Ambulatory Patient Summary [address] [id number] Visit Information Name: GEMA JAUREGUI [facility] Number: [id number] Current Date: 09/02/2014 12:44:25 Physicians Attending Provider: DANICA ENGLAND MD Primary [...] Tablet(s), Oral, two times aday correct amount melatonin (Melatonin 5 mg oral tablet) See [...] the Following Medications: Medication list as of 09-02-14 12:44 Attention: If you have any medications at [...] Electronically Signed By: DANICA ENGLAND MD Signed On:02-SEP-2014 12:44:10 Your Allergies & Intolerances Substance Reaction Symptoms [...] if you dont have one. Go to [email or web address] and click on Create Your Account. Then, follow the directions to complete the online form. Youll be asked for your [facility] number which you can find at the top of this document. Your Goals/Additional instructions: Source: [facility] POWERCHART Document Id: [id number] Miscellaneous - Danica England M.D. - 09/02/2014 12:44 PM CDT Ambulatory Discharge Medication List [address] [id number] Visit Information Name: GEMA JAUREGUI [facility] Number: [id number] Visit Date: 09/02/2014 12:44:23 Attending Provider: DANICA ENGLAND MD Primary Care [...] Tablet(s), Oral, two times aday correct amount melatonin (Melatonin 5 mg oral tablet) See [...] the Following Medications: Medication list as of 09-02-14 12:44 Attention: If you have any medications at [...] Electronically Signed By: DANICA ENGLAND MD Signed On:02-SEP-2014 12:44:10 Additional Information: Source: [facility] POWERCHART Document Id: [id number] Miscellaneous - Dominick Bradley L.PBrigitteNBrigitte - 09/02/2014 10:18 AM CDT Adult Food Safety Field Specialist Intake/History Adult Food Safety Field Specialist Intake/History Entered On: 09/02/2014 10:20 CDT Performed On: 09/02/2014 10:18 CDT by DOMINICK BRADLEY LPN Intake Chief Complaint : finger pain/swelling recheck lipids Temperature Core : 36.4 DegC(Converted to: 97.5 DegF) (LOW) Peripheral Pulse Rate : 72 /min Respiratory Rate : 12 /min (LOW) Systolic Blood Pressure : 106 mmHg Diastolic Blood Pressure : 62 mmHg NIBP Mean : 77 mmHg BP Location : Left upper extremity Blood Pressure Cuff Size : Regular Actual Weight : 74.5 kg(Converted to: 164 lb 4 oz) Dosing Weight Clinic : 74.5 kg DOMINICK BRADLEY LPN - 09/02/2014 10:18 CDT General Info Languages : Polish Is Patient Female and 13-50 no hysterectomy : No DOMINICK BRADLEY LPN - 09/02/2014 10:18 CDT Subjective Pain Symptoms : No DOMINICK BRADLEY LPN - 09/02/2014 10:18 CDT Dependent Habits Tobacco Use/Currently Using : No Tobacco Use/Last 12 months : Yes Exposure to Tobacco Smoke : Other: former Smoking Status : Former smoker DOMINICK BRADLEY LPN - 09/02/2014 10:18 CDT Source: [place] Document Id: [id number] CDT!23 documented in this encounter Plan of Treatment Not on filedocumented as of this encounter Procedures Procedure Name Priority Date/Time Associated Comments Diagnosis LIPID PANEL, S Routine 09/02/2014 10:54 Results f or this AM CDT procedure are i n the results section. SEDIMENTATION RATE, B Routine 09/02/2014 10:54 Re sults for this AM CDT procedure are i n the results section. RHEUMATOID FACTOR, S/P Routine 09/02/2014 10:54 R esults for this AM CDT procedure are i n the results section. C-REACTIVE PROTEIN Routine 09/02/2014 10:54 Resul ts for this (CRP), S/P AM CDT procedure are i n the results section. ANTINUCLEAR ABS (PEDRO), Routine 09/02/2014 10:54 R esults for this S AM CDT procedure are i n the results section. documented in this encounter Results Sedimentation Rate (09/02/2014 10:54 AM CDT) Analysis Performed At Patho logist Time Signature Sedimentation 16 0 - 29 POWERCHART Rate, B MMHR Specimen (Source) Anatomical Collection Method Collection Time Re ceived Time Location / / Volume Laterality Blood 09/02/2014 10:54 AM CDT Danica England M.D. LAB BLOOD ADD-ON Performing Organization Address City/[facility]/ZIP Code Phon e Number POWERCHART PEDRO (Antinuclear Antibodies) (09/02/2014 10:54 AM CDT) athologist Signature Antinuclear Ab 0.2 <=1.0 POWERCHART Screen by IFA, S (Negative) UNITS Comment: Test Performed by: [address] [address] Camp Nurse: Enzo Ricci II, M.D., Ph.D. Specimen (Source) Anatomical Collection Method Collection Time Re ceived Time Location / / Volume Laterality Blood 09/02/2014 10:54 AM CDT Danica England M.D. LAB BLOOD ADD-ON Performing Organization Address City/[facility]/ZIP Code Phon e Number POWERCHART Rheumatoid Factor (09/02/2014 10:54 AM CDT) athologist Signature Rheumatoid 11 <=15 IUL POWERCHART Factor, S Specimen (Source) Anatomical Collection Method Collection Time Re ceived Time Location / / Volume Laterality Blood 09/02/2014 10:54 AM CDT Danica England M.D. LAB BLOOD ADD-ON Performing Organization Address City/[facility]/ZIP Code Phon e Number POWERCHART (ABNORMAL) Lipid Panel (09/02/2014 10:54 AM CDT) athologist Signature Calculated LDL 274 (H) <=129 MGDL POWERCHART Comment: 2014 National Lipid Association [...] for FH and FDB is available mariana arguello [facility]: FH/ADH Genetic Reflex [place] el (test ADHP). Acquired (non-genetic) causes of markedly increased LDL cholesterol include cholestatic liver disease due to the presence of LpX. If a genetic form of hypercholesterolemia is suspected, family studies including biochemical testing fo r lipids (total cholesterol,triglycerides, LDL cholesterol and HDL cholesterol) are recommended. ??Please contact the laboratory at or the on-line test catalog at [facility] for information about how to order these luna ts or to speak with a genetic counselor. Further interpretation would require clinical information. Total Cholesterol/HDL Ratio 6.96 PO WERCHART Cholesterol, Total 362 (H) <=199 MGDL POWERCHART Comment: 2014 National Lipid Association recommen dations for Total Cholesterol in adults ages 18 and up: Desirable <200 mg/dL Borderline high 200-239 mg/dL High 240 mg/dL 2014 National Lipid Association recommen dations for Total Cholesterol in children ages 2 to 17. Acceptable <170 mg/dL Borderline High 170-199 mg/dL High 200 mg/dL HX HDL 52 >=50 MGDL POWERCHART Comment: 2014 National Lipid Association recommen dations for HDL-C in adults ages 18 and up: Low <40 mg/dL (Men) Low <50 mg/dL (Women) 2014 National Lipid Association recommen dations for HDL-C in children ages 2 to 17. Low <40 mg/dL Borderline Low 40-45 mg/dL Acceptable >45 mg/dL Triglycerides 181 (H) <=149 MGDL POWERCHART Comment: 2014 National Lipid Association [...] Time Location / / Volume Laterality Blood 09/02/2014 10:54 AM CDT Danica England M.D. LAB BLOOD ADD-ON Performing Organization Address City/State/ZIP Code Phon e Number POWERCHART CRP (C-Reactive Protein) (09/02/2014 10:54 AM CDT) P athologist Signature C-Reactive <3.0 <=5.0 MGL POWERCHART Protein (CRP), S Specimen (Source) Anatomical Collection Method Collection Time Re ceived Time Location / / Volume Laterality Blood 09/02/2014 10:54 AM CDT Danica England M.D. LAB BLOOD ADD-ON Performing Organization Address City/State/ZIP Code Phon e Number POWERCHART documented in this encounter Visit Diagnoses Not on filedocumented in this encounter Additional Health Concerns Assessment Noted Time PHQ-9 Depression Total Score: 4 07/27/2014 12:26 PM CD T documented as of this encounter
--- OUTSIDE RECORDS SUMMARY | 2021-10-26 16:14 | XMS_ITS | Encounter Summary ---
:1960 Author Organization [facility] Address [address] [place] [address] Care Team Providers Name Role Phone Unavailable Primary Care Provider Unavailable Encounter Details Date Type Department Care Team Description 07/31/2013 Hospital Encounter HX [facility] FAMILYPRA Ayden England M.D. [address] [place] [address] [phone] (Wo rk) Social History Tobacco [...] How often do you attend religious or baptism services? Patien t refused 12/11/2018 Do you [...] Sign Reading Time Taken Comments Blood Pressure 112/74 07/31/2013 10:40 AM CDT Pulse 76 07/31/2013 10:40 AM CDT Temperature - - Respiratory Rate 16 07/31/2013 10:40 AM CDT Oxygen Saturation - - Inhaled Oxygen Concentration - - Weight 73 kg (160 lb 15 oz) 07/31/2013 10:40 AM CDT Height - - Body Mass Index 25.56 03/09/2011 8:52 AM EXPORT CLERK documented in this encounter Progress Notes Danica England M.D. - 07/31/2013 10:33 AM CDT [id number] CHIEF COMPLAINT/REASON FOR VISIT Knee pain. HISTORY OF PRESENT ILLNESS A 53-year-old female presents to clinic secondary to knee pain on the left. Feels like her kneecap is catching. Did have surgery in 1976, open type procedure. Had no particular trauma, but was helping her ewcctt-gw-mqp move and did a lot of twisting and she woke up on the after doing more twisting the night before with a limp and some increased pain. Has wrapped it with an Romel wrap. Has not taken any medication but would like to have it go away. Also would be able to do her lipid profile today as she is fasting. EMR reviewed. MEDICATIONS 1. Sertraline 200 mg [...] year. DEXA scan: 02/23/2010. VITAL SIGNS Weight 73 kg, temperature 36.6, respiratory rate 16, pulse 76, systolic 112, diastolic 74. PHYSICAL EXAMINATION GENERAL: Neatly dressed, well groomed. EXTREMITIES: Positive femoral pulses. No true joint space tenderness. Obvious degenerative changes noted of the knee. Range of motion of the ankle, knee and hip are full. Reflexes 2+ knees and ankles. Able to stand on toes and heels, squat. Slow steady gait. DIAGNOSTICS X-ray no acute bony abnormalities. A pin is noted in the proximal tibia consistent with above history. IMPRESSION/REPORT/PLAN 1. Knee pain. 2. Hyperlipidemia. PLAN: A neoprene splint is given which almost resolves all of her symptomology. She will continue supportive measures. Follow up if any change occurs. May need to consider trial of physical therapy. Update her cholesterol assessment as noted. Follow up if any change occurs. She is comfortable with this plan and will follow up as noted. Spent 15 of the 25 minute visit in discusssion. Danica England M.D./melodie Electronically Signed By: DANICA ENGLAND MD On: 08/06/2013 01:36 PM Modified by and Electronically Signed by: DANICA ENGLAND MD On: 08/06/2013 01:36 PM Source: [facility] MHSDOLBEYNONRADSYS Document Id: [id number] documented in this encounter Nursing Notes Dominick Bradley L.PBrigitteNBrigitte - 08/01/2013 10:37 AM CDT Labs 614 Result card sent. Electronically Signed By: DOMINICK BRADLEY LPN On: 08/01/2013 10:37 AM Source: [facility] POWERCHART Document Id: [id number] documented in this encounter Miscellaneous Notes Miscellaneous - Danica England M.D. - 07/31/2013 3:10 PM CDT Ambulatory Patient Summary [address] [id number] Visit Information Name: GEMA JAUREGUI [facility] Number: [id number] Current Date: 07/31/2013 15:10:54 Physicians Attending Provider: DANICA ENGLAND MD Primary [...] tablet) 1 Tablet(s), Oral, two times aday sertraline (sertraline 100 mg oral tablet) 2 Tablet(s), Oral, once a day Stop Taking the Following Medications: Medication list as of 07-31-13 15:10 Attention: If you have any medications at [...] Electronically Signed By: DANICA ENGLAND MD Signed On:31-JUL-2013 15:10:44 Your Allergies & Intolerances Substance Reaction Symptoms [...] appointment detail needed. Your Goals/Additional instructions: Source: [facility] POWERCHART Document Id: [id number] Miscellaneous - Danica England M.D. - 07/31/2013 3:10 PM CDT Ambulatory Discharge Medication List [address] [id number] Visit Information Name: GEMA JAUREGUI [facility] Number: [id number] Visit Date: 07/31/2013 15:10:52 Attending Provider: DANICA ENGLAND MD Primary Care [...] tablet) 1 Tablet(s), Oral, two times aday sertraline (sertraline 100 mg oral tablet) 2 Tablet(s), Oral, once a day Stop Taking the Following Medications: Medication list as of 07-31-13 15:10 Attention: If you have any medications at [...] Electronically Signed By: DANICA ENGLAND MD Signed On:31-JUL-2013 15:10:44 Additional Information: Source: [facility] POWERCHART Document Id: [id number] Miscellaneous - Dominick Bradley L.P.N. - 07/31/2013 10:40 AM CDT Adult Paper Sealer Intake/History Adult Paper Sealer Intake/History Entered On: 07/31/2013 10:42 CDT Performed On: 07/31/2013 10:40 CDT by DOMINICK BRADLEY LPN Intake Chief Complaint : knee pain Temperature Core : 36.6 DegC(Converted to: 97.9 DegF) Peripheral Pulse Rate : 76 /min Respiratory Rate : 16 /min Systolic Blood Pressure : 112 mmHg Diastolic Blood Pressure : 74 mmHg NIBP Mean : 87 mmHg BP Location : Left upper extremity Blood Pressure Cuff Size : Regular Actual Weight : 73 kg(Converted to: 160 lb 15 oz) Dosing Weight Clinic : 73 kg DOMINICK BRADLEY LPN - 07/31/2013 10:40 CDT General Info Languages : Maltese DOMINICK BRADLEY LPN - 07/31/2013 10:40 CDT Subjective Pain Symptoms : Yes DOMINICK BRADLEY LPN - 07/31/2013 10:40 CDT Pain Pain Assessment Grid Pain 1 Location : Knee Laterality : Left DOMINICK BRADLEY LPN - 07/31/2013 10:40 CDT Dependent Habits Tobacco Use/Currently Using : Yes Exposure to Tobacco Smoke : Patient smokes Smoking Status : Current every day smoker DOMINICK BRADLEY LPN - 07/31/2013 10:40 CDT Source: [facility] [employer] Document Id: [id number] CDT!26 Telephone Encounter - Danica England M.D. - 07/31/2013 12:00 AM CDT [id number] Patient's lipid profile was markedly abnormally. A low cholesterol diet has been advised. A cholesterol-lowering medication would be advised. She is advised to follow up in the clinic to discuss all ofthe above. Card is sent to patient in regards to this issue. Danica England M.D./melodie Electronically Signed By: DANICA ENGLAND MD On: 08/01/2013 05:28 PM Modified by and Electronically Signed by: DANICA ENGLAND MD On: 08/01/2013 05:28 PM Source: [facility] MHSDOLBEYNONRADSYS Document Id: [id number] documented in this encounter Plan of Treatment Not on filedocumented as of this encounter Procedures Procedure Name Priority Date/Time Associated Diagnosis Comme nts LIPID PANEL, S Routine 07/31/2013 11:59 AM Result s for this CDT procedure are i n the results section. DX KNEE LEFT 3 Routine 07/31/2013 11:00 AM Result s for this VIEWS CDT procedure are i n the results section. documented in this encounter Results (ABNORMAL) Lipid Panel (07/31/2013 11:59 AM CDT) [facility] gist Method Time Signature Cholesterol, Total 340 (H) 0 - 200 POWERCHART MGDL HX HDL 49.0 40.0 - POWERCHART 60.0 MGDL Triglycerides 218 (H) 0 - 150 POWERCHART MGDL Calculated LDL 247 (H) 0 - 100 POWERCHART MGDL Specimen (Source) Anatomical Collection Method Collection Time Re ceived Time Location / / Volume Laterality Blood 07/31/2013 11:59 AM CDT Danica England M.D. LAB BLOOD ADD-ON Performing Organization Address City/State/ZIP Code Phon e Number POWERCHART DX Knee Left 3 Views (07/31/2013 11:00 AM CDT) Anatomical Region Laterality Modality Lower Extremity, Knee Left Radiographic Imagi ng Specimen (Source) Anatomical Collection Method Collection Time Re ceived Time Location / / Volume Laterality 07/31/2013 11:00 AM CDT Addenda Addendum by Provider, Eva Mcneill n 07/31/2013 11:00 AM CDT RAD^^^OW XR Knee Left 3 views 07/31/2013 11:00:13 Addendum by Provider, Eva Mcneill n 07/31/2013 11:00 AM CDT RAD^^^MA XR KNEE LEFT 3 VIEWS 07/31/2013 11:00:13 Narrative 07/31/2013 11:40 AM CDT COMPARISON: None. HISTORY: 53 year old female with left kn ee pain with patellar history of open arthroplasty in 1976. Twisting i njury in June of this year, waking up with pain the day after. Findings: There is no acute left knee os seous abnormality. Bone mineralization is within normal limits. The visualized joint spaces are preserved. There is a fixation screw in the anterior tibial tuberosity region, the hardware appears intact. Impression: No acute left knee osseous a bnormality. Procedure Note Timothy Stinson M.D. / Provider, Sneha sweeney M.D. - 07/07/2016 COMPARISON: None. HISTORY: 53 year old female with left kn ee pain with patellar history of open arthroplasty in 1976. Twisting i njury in June of this year, waking up with pain the day after. Findings: There is no acute left knee os seous abnormality. Bone mineralization is within normal limits. The visualized joint spaces are preserved. There is a fixation screw in the anterior tibial tuberosity region, the hardware appears intact. Impression: No acute left knee osseous a bnormality. Claribel Kwon R.T.(R), R.T.(R)(M) IMG DIAGNOSTIC IM AGING PROCEDURES documented in this encounter Visit Diagnoses Not on filedocumented in this encounter Additional Health Concerns Assessment Noted Time PHQ-9 Depression Total Score: 4 06/04/2013 12:09 PM CD T documented as of this encounter
--- OUTSIDE RECORDS SUMMARY | 2021-10-26 16:14 | XMS_ITS | Encounter Summary ---
:1960 Author Organization [facility] Address [address] [place] [id number] Care Team Providers Name Role Phone Unavailable Primary Care Provider Unavailable Encounter Details Date Type Department Care Team Description 07/13/2016 Hospital Encounter HX [facility] FAMILYPRA Shelley England M.D. [address] [place], [place] [address] (Wo rk) Social History [...] How often do you attend buddhist or yazidi services? Patien t refused 12/11/2018 [...] Sign Reading Time Taken Comments Blood Pressure 114/64 07/13/2016 10:56 AM CDT Pulse 72 07/13/2016 10:52 AM CDT Temperature - - Respiratory Rate 16 07/13/2016 10:52 AM CDT Oxygen Saturation - - Inhaled Oxygen Concentration - - Weight 75.4 kg (166 lb 3.6 oz) 07/13/2016 10:52 AM CDT Height 165 cm (5' 4.96) 07/13/2016 10:40 AM CDT Body Mass Index 27.69 07/13/2016 10:52 AM CDT documented in this encounter Progress Notes Danica England M.D. - 07/13/2016 10:38 AM CDT [id number] CHIEF COMPLAINT/REASON FOR VISIT Abnormal labs. HISTORY OF PRESENT ILLNESS A 55-year-old female presents to clinic to follow up her abnormal labs. TSH was increasing in 2016. Her TPO antibodies were negative. 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 Her TSH is increasing. She has had known dyslipidemia for many years. Trialed simvastatin, had side effects, and then was to trial pravastatin but family issues occurred and this did not happen. She is trying to be active, walking a dog, although she does admit she is getting a bit older and can only go about 20 minutes. She did get an elliptical but with the last evaluation she was fearful about exercising as her lipids were in the 300+ range. She is having no true shortness of breath. No palpitations. Her mood is fairly stable although she does note she feels like she is more fatigued than she should be. She has been under some increased psychosocial stress but this is stabilizing. No change in herbowel or bladder regimen. Negative review of other major organ systems. EMR reviewed. MEDICATIONS 1. Sertraline 100 mg 2 tablets daily. 2. Gabapentin 100 mg 3 tablets daily. 3. Bupropion sustained release 200 mg 2 times per day. 4. Levothyroxine 75 mcg daily. Prescription given 07/13/2016. 5. Pravastatin 20 mg daily. Prescription given 07/13/2016. 6. Melatonin over the counter at bedtime. ALLERGIES Codeine but the details are not clear. SYSTEMS REVIEW Negative review of major organ systems apart from that noted in the HPI and the Past Medical Surgical History. PAST MEDICAL/SURGICAL HISTORY SURGERIES: Left knee surgery with residual episodic pain 1976. OTHER HOSPITALIZATION: vaginal delivery. OTHER MAJOR ILLNESSES: 1. Premature menopause at age 33. 2. Episodic GERD currently stable. 3. Osteopenia confirmed on DEXA scan . 4. Anxiety with depressive features. 5. Hyperlipidemia. 6. Overweight. 7. Restless legs, currently stable. 8. Periodontitis, resolved with placement of dentures. 9. Nicotine dependence. 10. Stable echocardiogram 07/07/2010 obtained secondary to atypical chest pain with ejection fractionof 65%. PREVENTIVE SERVICES Tobacco: Quit smoking cigarettes in 2013. Quit using e-cigarette since 07/27/2014. Mammogram: 06/06/2016. Pap smear: 07/27/2014. Colon screen: 01/14/[address] Marquis. Recheck plan for 10 years. Depression: Yes. PHQ-9 score 3. Asthma: No. Lipids: 06/07/2016. Tetanus: 2006. Pneumovax non applicable due to age. Influenza: Declined. DEXA scan: 02/23/2010. FAMILY HISTORY Mother in the memory care unit in the shelter since 2013. Mother has diabetes mellitus and [...] SOCIAL HISTORY No alcohol. VITAL SIGNS Weight 75.4 kg. Temperature 36.4, respiratory rate 16, pulse 72, systolic 114, diastolic 64. PHYSICAL EXAMINATION GENERAL: Neatly dressed, well groomed. HEENT: Head: No evidence of trauma, tenderness, masses. Ears: TMs are frias. Good visualization of landmarks. Nose: Mucosal membranes pink and moist. Oral: Good fitting dentures. NECK: Range of motion consistent with patient's stated age, body habitus. Trachea midline. LYMPH NODES: No cervical adenopathy. THYROID: No masses, tenderness, or enlargement. LUNGS: Clear to auscultation. CARDIOVASCULAR: Regular rate and rhythm. IMPRESSION/REPORT/PLAN 1. Hyperlipidemia. 2. Impaired fasting glucose. 3. Hypothyroidism. 4. Depression with anxiety. PLAN: Will recommend beginning medications for the above issues. Risks and benefits discussed. All questions answered. Handout is given in regard to low- cholesterol healthy diet. Will recommend checking her AST and TPO antibodies in about 10 days. If stable, continue on her lipid lowering agent and recheck a fasting AST, lipid profile in 2 months. Recommend checking a TSH in 10 weeks. If the TPO antibodies are stable this could indeed reflect changes due to the inflammation related to the markedly elevated lipid and her history of premature ovarian failure. However the if the TPO antibodies are elevating this could indeed reflect Del thyroiditis, which is found in multiple of her family members. Signs and symptoms to lead to emergent evaluation are reviewed. Please see the medication reconciliation and preventive services. She will consider her options. Spent 15 of the 25-minute visit in discussion. Danica England M.D./melodie Electronically Signed By: DANICA ENGLAND MD On: 07/19/2016 08:25 AM Modified by and Electronically Signed by: DANICA ENGLAND MD On: 07/19/2016 08:25 AM Source: [facility] MHSDOLBEYNONRADSYS Document Id: [id number] documented in this encounter Miscellaneous Notes Miscellaneous - Desiree Nelson - 12/07/2016 8:40 AM CDT Med Management From: DESIREE NELSON ( [employer] Business Intelligence Analyst) To: DANICA ENGLAND MD; Sent: 12/07/2016 08:40:54 CDT Subject: Med Management On hold pending signature Order:sertraline (sertraline 100 mg oral tablet) 2 tab(s) PO Daily Qty: 60 each Refills: 5 Substitutions Allowed Route To Fiiiling [id number] [facility] Document Id: [id number] Miscellaneous - Desiree Nelson - 12/07/2016 8:39 AM CDT Med Management From: DESIREE NELSON ( [employer] Business Intelligence Analyst) To: DANICA ENGLAND MD; Sent: 12/07/2016 08:39:08 CDT Subject: Med Management On hold pending signature Order:gabapentin (gabapentin 100 mg oral capsule) 3 cap(s) PO Daily Qty: 90 each Refills: 5 Substitutions Allowed Route To [facility] [id number] Source: [facility] Document Id: [id number] Miscellaneous - Desiree Nelson - 12/07/2016 8:38 AM CDT Med Management From: DESIREE NELSON ([facility] Business Intelligence Analyst) To: DANICA ENGLAND MD; Sent: 12/07/2016 08:38:21 CDT Subject: Med Management On hold pending signature Order:buPROPion (buPROPion SR 200 mg/12 hour oral sustained release tablet) 1 tab(s) PO 2xDay do notchew or break tablets Qty: 60 each Refills: 5 Route To Pharmacy - [facility] [address] Source: [facility] [employer]Living Document Id: [id number] Telephone Encounter - Danica England M.D. - 09/11/2016 12:00 AM CDT [id number] Lipid profile reveals total cholesterol 229, LDL 146, significantly improved. Could consider a higher dose of the statin. TSH is slightly suppressed at 0.23. Given the above history will recommend continuing the current dose and recheck her thyroid studies in about 10 weeks. Card is sent to patient [facility] to this issue. Danica England M.D./melodie Electronically Signed By: DANICA ENGLAND MD On: 09/12/2016 08:18 AM Modified by and Electronically Signed by: DANICA ENGLAND MD On: 09/12/2016 08:18 AM Source: [facility] MHSDOLBEYNONRADSYS Document Id: [id number] Telephone Encounter - Danica England M.D. - 07/26/2016 12:00 AM CDT [id number] TPO antibodies are stable. TSH is modestly elevated. Would recommend following up in clinic to recheck her other health issues and consider other additional thyroid labs. Card is sent to patient in regard to this issue. Danica England M.D./melodie Electronically Signed By: DANICA ENGLAND MD On: 07/27/2016 07:51 AM Source: [facility] MHSDOLBEYNONRADSYS Document Id: [id number] Miscellaneous - Danica England M.D. - 07/13/2016 12:52 PM CDT Ambulatory Patient Summary [address] [id number] Visit Information Name: GEMA JAUREGUI [facility] Number: [id number] Current Date: 07/13/2016 12:52:36 Physicians Attending Provider: DANICA ENGLAND MD Primary [...] aday do not chew or break tablets gabapentin (gabapentin 100 mg oral capsule) 3 cap, Oral, once a day levothyroxine (levothyroxine 75 mcg (0.075 mg) oral tablet) 1 Tablet(s), Oral, once a day recheck labs in 10 weeks New Routed to [address] [id number] melatonin (Melatonin 5 mg oral tablet) See Instructions 2 tab(s) PO Bedtime pravastatin (pravastatin 20 mg oral tablet) 1 Tablet(s), Oral, once a day (at bedtime) check labs in10 days, if stable continue medication and recheck labs in 2months New Routed to [facility] [address] [place], [place] [id number] sertraline (sertraline 100 mg oral tablet) 2 Tablet(s), Oral, once a day Stop Taking the Following Medications: Medication list as of 07-13-16 12:52 Attention: If you have any medications at [...] Electronically Signed By: DANICA ENGLAND MD Signed On:13-JUL-2016 12:52:28 Your Allergies & Intolerances Substance Reaction Symptoms Category Comments codeine Drug Your Problem List Problem Status Onset Comments Dysthymic Disorder Active Premature menopause Active 03/12/1994 Osteopenia Active 07/11/2003 02/21/10 DEXA; 02/23/10 02/23/2010 low normal DEXA Hyperlipidemia Active Restless legs Active Overweight Active DJD (OA) NOS Active Depression Anxiety Active Impaired (IFG) Fasting Glucose Active 06/07/2016 07/13/16 glucose 103 Your Upcoming Appointments Date Time Location Provider [...] if you dont have one. Go to [email or web address] and click on Create Your Account. Then, follow the directions to complete the online form. Youll be asked for your [facility] number which you can find at the top of this document. Your Goals/Additional instructions: Source: [facility] POWERCHART Document Id: [id number] Miscellaneous - Danica England M.D. - 07/13/2016 12:52 PM CDT Ambulatory Discharge Medication List [address] [id number] Visit Information Name: GEMA JAUREGUI [facility] Number: [id number] Current Date: 07/13/2016 12:52:35 Attending Provider: DANICA ENGLAND MD Primary Care [...] aday do not chew or break tablets gabapentin (gabapentin 100 mg oral capsule) 3 cap, Oral, once a day levothyroxine (levothyroxine 75 mcg (0.075 mg) oral tablet) 1 Tablet(s), Oral, once a day recheck labs in 10 weeks New Routed to [facility] [address] [place], [place] [phone] melatonin (Melatonin 5 mg oral tablet) See Instructions 2 tab(s) PO Bedtime pravastatin (pravastatin 20 mg oral tablet) 1 Tablet(s), Oral, once a day (at bedtime) check labs in10 days, if stable continue medication and recheck labs in 2months New Routed to [facility] [address] [place], [place] [phone] sertraline (sertraline 100 mg oral tablet) 2 Tablet(s), Oral, once a day Stop Taking the Following Medications: Medication list as of 07-13-16 12:52 Attention: If you have any medications at [...] Electronically Signed By: DANICA ENGLAND MD Signed On:13-JUL-2016 12:52:28 Additional Information: Source: [facility] [employer]plified Document Id: [id number] Zach - Danica England M.D. - 07/13/2016 12:46 PM CDT PHQ-9 PHQ-9 Entered On: 07/13/2016 12:46 CDT Performed On: 07/13/2016 12:46 CDT by DANICA ENGLAND MD PHQ-9 Little [...] Not at all PHQ-9 Calculated Score : 3 Problems make work, home, or dealing with others : Not difficult at all DANICA ENGLAND MD - 07/13/2016 12:46 CDT Source: [facility] [employer] Document Id: [id number] CDT!13 Zach - Dominick Bradley L.PCarlos - 07/13/2016 10:56 AM CDT Ambulatory Vitals Height Weight Ambulatory Vitals Height Weight Entered On: 07/13/2016 10:56 CDT Performed On: 07/13/2016 10:56 CDT by DOMINICK BRADLEY LPN Vitals/Ht/Wt Systolic Blood Pressure : 114 mmHg Diastolic Blood Pressure : 64 mmHg NIBP Mean : 81 mmHg BP Location : Left upper extremity Blood Pressure Cuff Size : Regular DOMINICK BRADLEY LPN - 07/13/2016 10:56 CDT [facility] Document Id: [id number] CDT!7 Miscellaneous - Dominick Bradley LBrigitteP.NBrigitte - 07/13/2016 10:52 AM CDT Adult Research Program Manager Intake/History Adult Research Program Manager Intake/History Entered On: 07/13/2016 10:56 CDT Performed On: 07/13/2016 10:52 CDT by DOMINICK BRADLEY LPN Intake Chief Complaint : follow up Temperature Core : 36.4 DegC(Converted to: 97.5 DegF) (LOW) Peripheral Pulse Rate : 72 /min Respiratory Rate : 16 /min Systolic Blood Pressure : 130 mmHg Diastolic Blood Pressure : 70 mmHg NIBP Mean : 90 mmHg BP Location : Left upper extremity Blood Pressure Cuff Size : Regular Actual Weight : 75.4 kg(Converted to: 166 lb 4 oz) Dosing Weight Clinic : 75.4 kg DOMINICK BRADLEY LPN - 07/13/2016 10:52 CDT General Info Languages : Guinean Is Patient Female and 13-50 no hysterectomy : No DOMINICK BRADLEY LPN - 07/13/2016 10:52 CDT Subjective Pain Symptoms : No DOMINICK BRADLEY LPN - 07/13/2016 10:52 CDT Dependent Habits Exposure to Tobacco Smoke : Other: former Smoking Status : Former smoker Tobacco 2A : Yes Tobacco Use/Currently Using : No Tobacco Use/Last 30 Days : No Tobacco Use/Last 12 months : No Tobacco Last Use/Month : April Tobacco Last Use/Year : 2012 DOMINICK BRADLEY LPN - 07/13/2016 10:52 CDT Source: [facility] [employer] Document Id: [id number] CDT!27 documented in this encounter Plan of Treatment Not on filedocumented as of this encounter Visit Diagnoses Not on filedocumented in this encounter Additional Health Concerns Assessment Noted Time PHQ-9 Depression Total Score: 3 07/13/2016 12:46 PM CD T documented as of this encounter
--- OUTSIDE RECORDS SUMMARY | 2021-10-26 16:14 | XMS_ITS | Encounter Summary ---
:1960 Author Organization [facility] Address [address] [place] [id number] Care Team Providers Name Role Phone Danica England M.D. Primary Care Provider Encounter Details Date Type Department Care Team Description 09/11/2016 Hospital Encounter HX [facility] LAB Ayden England M.D. [address] [place], [place] [address] (Wo rk) Social History [...] How often do you attend taoism or tenriism services? Patien t refused 12/11/2018 [...] - Height 165 cm (5' 4.96) 09/11/2016 9:16 AM CDT Body Mass Index - - documented in this encounter Medications at Time of Discharge Medication Sig Dispensed Refills Start Date End Date levothyroxine Take 1 tablet by 0 09/11/201601/11 (for_SYNTHROID, mouth daily. LEVOTHROID) 75 mcg tablet pravastatin Take 1 tablet by 0 09/11/2016 017 (for_PRAVACHOL) 20 mg mouth at bedtime. tablet documented as of this encounter Nursing Notes Eileen Becker L.P.N. - 09/11/2016 2:03 PM CDT lab results 09/11/16 Results card sent, per Dr. England. Electronically Signed By: EILEEN BECKER LPN On: 09/11/2016 02:03 PM Source: [facility] POWERCHART Document Id: [id number] documented in this encounter Plan of Treatment Not on filedocumented as of this encounter Procedures Procedure Name Priority Date/Time Associated Comments Diagnosis LIPID PANEL, S Routine 09/11/2016 9:28 Results fo r this AM CDT procedure are i n the results section. ASPARTATE Routine 09/11/2016 9:28 Results for this AMINOTRANSFERASE (AST), AM CDT proc edure are in S/P the results section. documented in this encounter Results (ABNORMAL) Lipid Panel (09/11/2016 9:28 AM CDT) P athologist Signature Cholesterol, 229 (H) <=199 MGDL POWERCHART Total Comment: 2014 National Lipid Association recommen dations for Total Cholesterol in adults ages 18 and up: Desirable <200 mg/dL Borderline high 200-239 mg/dL High 240 mg/dL 2014 National Lipid Association recommen dations for Total Cholesterol in children ages 2 to 17. Acceptable <170 mg/dL Borderline High 170-199 mg/dL High 200 mg/dL HX HDL 57 >=50 MGDL POWERCHART Comment: 2014 National Lipid Association recommen dations for HDL-C in adults ages 18 and up: Low <40 mg/dL (Men) Low <50 mg/dL (Women) 2014 National Lipid Association recommen dations for HDL-C in children ages 2 to 17. Low <40 mg/dL Borderline Low 40-45 mg/dL Acceptable >45 mg/dL Triglycerides 129 <=149 MGDL POWERCHART Comment: 2014 National Lipid [...] for risk assessment when triglycerides are >400mg/dL. Calculated LDL 146 (H) <=129 MGDL POWERCHART Comment: 2013 National Lipid Association recommen dations for LDL-C in adults ages 18 and up: Desirable <100 mg/dL Above desirable 100-129 mg/dL Borderline high 130-159 mg/dL High 160-189 mg/dL Very High 190 mg/dL 2013 National Lipid Association recommen dations for LDL-C in children ages 2 to 17. Acceptable <110 mg/dL Borderline High 110-129mg/dL High 130 mg/dL LDL-C >190mg/dL: The markedly elevated LDL level is suggestive of a genetic condition such as familial hypercholesterolemia(FH) or familial defective apolipoprotein B-100 (FDB). Molecular genetic t est[facility] FH and FDB [facility] FH/ADH Genetic Reflex [place] el (test ADHP). Acquired (non-genetic) causes of markedly increased LDL cholesterol include cholestatic liver disease due to the presence of LpX. If a genetic form of hypercholesterolemia is suspected, family studies including biochemical testing fo r lipids (total cholesterol,triglycerides, LDL cholesterol and HDL cholesterol) are recommended. ??Please contact the laboratory at or the on-line test catalog at [employer] for information about how to order these luna ts or to speak with a genetic counselor. Further interpretation would require clinical information. Total Cholesterol/HDL Ratio 4.00 PO WERCHART HXLDL/HDL 3 POWERCHART Specimen (Source) Anatomical Collection Method Collection Time Re ceived Time Location / / Volume Laterality Blood 09/11/2016 9:28 AM CDT Danica England M.D. LAB BLOOD ADD-ON Performing Organization Address City/State/ZIP Code Phon e Number POWERCHART POWERCHART NA AST (Aspartate Aminotransferase) (09/11/2016 9:28 AM CDT) Patholo gist Method Time Signature [...] as of this encounter Care Teams Manager Technical Training Relationship Specialty Start Date End Date Danica England M.D. PCP - General 08/10/16 01/26/19 documented as of this encounter
--- OUTSIDE RECORDS SUMMARY | 2021-10-26 16:14 | XMS_ITS | Encounter Summary ---
:1960 Author Organization [facility] Address [address] [place] [address] Care Team Providers Name Role Phone Unavailable Primary Care Provider Unavailable Encounter Details Date Type Department Care Team Description 06/07/2016 Hospital Encounter HX [facility] Ayden England M.D. [address] [place] [address] 021 (Wo rk) Social History Tobacco Use [...] 12/11/2018 relatives? How often do you attend muslim or faith services? Patien t refused 12/11/2018 Do you belong to any clubs or organizations such as Patient refused 12/11/2018 muslim groups, unions, fraternal or athletic groups, or [...] - Height 165 cm (5' 4.96) 06/07/2016 10:02 AM CDT Body Mass Index - - documented in this encounter Miscellaneous Notes Miscellaneous - Leila Lee APRN, C.N.P. - 06/07/2016 5:09 PM CDT From: LEILA LEE APRN WOOD HEEL CEMENTER To: GEMA HARMAN Sent: 06/07/2016 17:09:52 CDT Gema, Your cholesterol is very high, please schedule an appointment to discuss medication to treat. Your TSH (thyroid) test is also elevated indicating hypothyroidism. We will discuss at your appointment. Leila Results: Date Result Name Ind Value Ref Range 06/07/2016 10:20 AST 31 unit/L (8 - 43) 06/07/2016 10:20 Cholesterol (H) 388 mg/dL ( - <=199) 06/07/2016 10:20 Trig (H) 240 mg/dL ( - <=149) 06/07/2016 10:20 HDL 54 mg/dL (>=50 - ) 06/07/2016 10:20 LDL Calculated (H) 286 mg/dL ( - <=129) 06/07/2016 10:20 Chol/HDL Ratio 7.00 06/07/2016 10:20 LDL/HDL 5 06/07/2016 10:20 Sodium Lvl 143 mmol/L (135 - 145) 06/07/2016 10:20 Potassium Lvl 4.5 mmol/L (3.6 - 5.2) 06/07/2016 10:20 Chloride 106 mmol/L (98 - 107) 06/07/2016 10:20 CO2 (H) 31 mmol/L (22 - 29) 06/07/2016 10:20 AGAP (L) 6 mmol/L (7 - 15) 06/07/2016 10:20 Glucose Fasting (H) 103 mg/dL (70 - 99) 06/07/2016 10:20 Creatinine 0.97 mg/dL (0.60 - 1.10) 06/07/2016 10:20 EGFR (MDRD) 60 mL/min/1.73m2 (>=60 - ) 06/07/2016 10:20 EGFR (MDRD) >60 mL/min/1.73m2 (>=60 - ) 06/07/2016 10:20 BUN 12 mg/dL (6 - 21) 06/07/2016 10:20 Calcium Lvl 9.5 mg/dL (8.0 - 10.3) 06/07/2016 10:20 TSH (H) 6.49 mIU/L (0.27 - 4.20) 06/07/2016 10:20 Hgb 13.3 g/dL (12.0 - 15.5) 06/07/2016 10:20 Hct 40.1 % (34.9 - 44.5) 06/07/2016 10:20 WBC 5.5 x10(9)/L (3.4 - 10.5) 06/07/2016 10:20 RBC 4.41 x10(12)/L (3.90 - 5.03) 06/07/2016 10:20 MCV 90.9 fL (82.0 - 98.0) 06/07/2016 10:20 RDW 14.8 % (11.9 - 15.5) 06/07/2016 10:20 Platelet 219 x10(9)/L (150 - 450) 06/07/2016 10:20 Neutro Absolute 2.71 10(9)/L (1.70 - 7.00) 06/07/2016 10:20 Lymph Absolute 2.25 x10(9)/L (0.90 - 2.90) 06/07/2016 10:20 Whiteside Absolute 0.41 x10(9)/L (0.30 - 0.90) 06/07/2016 10:20 Eos Absolute 0.06 x10(9)/L (0.05 - 0.50) 06/07/2016 10:20 Baso Absolute 0.03 x10(9)/L (0.00 - 0.30) Source: [facility] POWERCHART Document Id: [id number] Electronically signed by Conversion, [facility] Home Appraiser [id number] at 08/08/2016 5:53 AM CDT documented in this encounter Plan of Treatment Not on filedocumented as of this encounter Procedures Procedure Name Priority Date/Time Associated Comments Diagnosis LIPID PANEL, S Routine 06/07/2016 10:20 Results f or this AM CDT procedure are i n the results section. ASPARTATE Routine 06/07/2016 10:20 Results for this AMINOTRANSFERASE (AST), AM CDT proc edure are in S/P the results section. documented in this encounter Results AST (Aspartate Aminotransferase) (06/07/2016 10:20 AM CDT) Patholo gist Method Time Signature Aspartate 31 8 - 43 POWERCHART Aminotransferase UNITL (AST), S Specimen (Source) Anatomical Collection Method Collection Time Re ceived Time Location / / Volume Laterality Blood 06/07/2016 10:20 AM CDT Leila Lee APRN, C.N.P. LAB BLOOD ADD-ON Performing Organization Address City/State/ZIP Code Phon e Number POWERCHART (ABNORMAL) Lipid Panel (06/07/2016 10:20 AM CDT) P athologist Signature Cholesterol, 388 (H) <=199 MGDL POWERCHART Total Comment: 2013 National Lipid Association recommen dations for Total Cholesterol in adults ages 18 and up: Desirable <200 mg/dL Borderline high 200-239 mg/dL High 240 mg/dL 2014 National Lipid Association recommen dations for Total Cholesterol in children ages 2 to 17. Acceptable <170 mg/dL Borderline High 170-199 mg/dL High 200 mg/dL HX HDL 54 >=50 MGDL POWERCHART Comment: 2014 National Lipid Association recommen dations for HDL-C in adults ages 18 and up: Low <40 mg/dL (Men) Low <50 mg/dL (Women) 2014 National Lipid Association recommen dations for HDL-C in children ages 2 to 17. Low <40 mg/dL Borderline Low 40-45 mg/dL Acceptable >45 mg/dL Triglycerides 240 (H) <=149 MGDL POWERCHART Comment: 2014 National [...] assessment when triglycerides are >400mg/dL. Calculated LDL 286 (H) <=129 MGDL POWERCHART Comment: 2013 National [...] FH and FDB is available mariana arguello [facility]: FH/ADH Genetic Reflex [place] el (test ADHP). Acquired (non-genetic) causes of markedly increased LDL cholesterol include cholestatic liver disease due to the presence of LpX. If a genetic form of hypercholesterolemia is suspected, family studies including biochemical testing fo r lipids (total cholesterol,triglycerides, LDL cholesterol and HDL cholesterol) are recommended. ??Please contact the laboratory at or the on-line test catalog at [facility] for information about how to order these luna ts or to speak with a genetic counselor. Further interpretation would require clinical information. Total Cholesterol/HDL Ratio 7.00 PO WERCHART HXLDL/HDL 5 POWERCHART Specimen (Source) Anatomical Collection Method Collection Time Re ceived Time Location / / Volume Laterality Blood 06/07/2016 10:20 AM CDT Leila Lee APRN, C.N.P. LAB BLOOD ADD-ON Performing Organization Address City/State/ZIP Code Phon e Number POWERCHART documented in this encounter Visit Diagnoses Not on filedocumented in this encounter Additional Health Concerns Assessment Noted Time PHQ-9 Depression Total Score: 4 06/06/2016 1:31 PM CDT documented as of this encounter
--- OUTSIDE RECORDS SUMMARY | 2021-10-26 16:14 | XMS_ITS | Encounter Summary ---
:1960 Author Organization [facility] Address [address] [place] [address] Care Team Providers Name Role Phone Unavailable Primary Care Provider Unavailable Encounter Details Date Type Department Care Team Description 07/25/2016 Hospital Encounter HX [facility] Ayden England M.D. [address] [place] [address] 021 (Wo rk) Social History Tobacco Use [...] How often do you attend quaker or roman catholic services? Patien t refused [...] Date/Time Associated Comments Diagnosis THYROPEROXIDASE (TPO) Routine 07/25/2016 11:04 Re sults for this ABS, S AM CDT procedure are i n the results section. documented in this encounter Results Thyroperoxidase (TPO) Antibodies (07/25/2016 11:04 AM CDT) [facility] gist Method Time Signature Thyroperoxidase Ab, 4.9 <9.0 POWERCHART S INTUML Comment: Test Performed by: [address] [address] Specimen (Source) Anatomical Collection Method Collection Time [...]
--- OUTSIDE RECORDS SUMMARY | 2021-10-26 16:14 | XMS_ITS | Encounter Summary ---
:1960 Author Organization [facility] Address [address] [place] [address] Care Team Providers Name Role Phone Unavailable Primary Care Provider Unavailable Encounter Details Date Type Department Care Team Description 03/11/2015 Hospital Encounter HX [facility] Ayden Luna M.D. [address] [place] [address] 021 (Wo rk) Social History Tobacco Use [...] 12/11/2018 relatives? How often do you attend faith or worship services? Patien t refused 12/11/2018 Do you belong to any clubs or organizations such as Patient refused 12/11/2018 faith groups, unions, fraternal or athletic groups, or [...] - - Height 166 cm (5' 5.35) 03/11/2015 3:27 PM WELDER AND FITTER Body Mass Index - - documented in this encounter Nursing Notes Dominick Bradley, L.P.N. - 03/12/2015 4:42 PM CST US Abd 03-11-15 Result card sent. Electronically Signed By: DOMINICK BRADLEY LPN On: 03/12/2015 04:42 PM Source: [facility] POWERCHART Document Id: [id number] ER AND FITTER documented in this encounter Plan of Treatment Not on filedocumented as of this encounter Procedures Procedure Name Priority Date/Time Associated Diagnosis Comme nts US ABDOMEN COMPLETE Routine 03/11/2015 3:30 PM Re sults for this WELDER AND FITTER procedure are i n the results section. documented in this encounter Results US Abdomen Complete (03/11/2015 3:30 PM WELDER AND FITTER) Anatomical Region Laterality Modality Abdomen N/A Ultrasound Specimen (Source) Anatomical Collection Method Collection Time Re ceived Time Location / / Volume Laterality 03/11/2015 3:30 PM WELDER AND FITTER Addenda Addendum by Provider, Eva Mcneill 03/11/2015 3:30 PM WELDER AND FITTER RAD^^^OW US Abdomen Complete 03/11/2015 15:30:00 Impressions 03/11/2015 4:13 PM WELDER AND FITTER No findings to explain abdominal pain and nausea. FINDINGS: Liver: ??Normal. Spleen: ??Normal. Gallbladder: ??Normal. Intrahepatic ducts: ??Not dilated. Common duct: ??Not dilated. Pancreas: ??Normal where seen. Right kidney: Survey views negative for solid mass and hydronephrosis. Kidney measures 11.3 cm. Left kidney: Survey views negative for s olid mass and hydronephrosis. Kidney measures 11.7 cm. Aorta: ??Normal caliber. IVC: ??Normal where seen. Narrative 03/11/2015 4:13 PM WELDER AND FITTER EXAM: ??US Abdomen Complete INDICATION: abdominal pain,nausea COMPARISON: ??None. Procedure Note Reagan Means M.D. / Provider, Rainer evans M.D. - 06/30/2016 EXAM: US Abdomen Complete INDICATION: abdominal pain,nausea COMPARISON: None. IMPRESSION: No findings to explain abdom inal pain and nausea. FINDINGS: Liver: Normal. Spleen: Normal. Gallbladder: Normal. Intrahepatic ducts: Not dilated. Common duct: Not dilated. Pancreas: Normal where seen. Right kidney: Survey views negative for solid mass and hydronephrosis. Kidney measures 11.3 cm. Left kidney: Survey views negative for s olid mass and hydronephrosis. Kidney measures 11.7 cm. Aorta: Normal caliber. IVC: Normal where seen. Gela Fine R.V.T., DelmerSBrigitte IMKofi US PROCEDURES documented in this encounter Visit Diagnoses Not on filedocumented in this encounter Additional Health Concerns Assessment Noted Time PHQ-9 Depression Total Score: 4 07/27/2014 12:26 PM CD T documented as of this encounter
--- OUTSIDE RECORDS SUMMARY | 2021-10-26 16:14 | XMS_ITS | Encounter Summary ---
:1960 Author Organization [facility] Address [address] [place] [address] Care Team Providers Name Role Phone Unavailable Primary Care Provider Unavailable Encounter Details Date Type Department Care Team Description 01/17/2013 Hospital Encounter HX [facility] SURGEON Gorge Mattson M.D. Social History Tobacco Use Types Packs/Day Years [...] How often do you attend latter-day or islam services? Patien t refused 12/11/2018 Do you [...] Sign Reading Time Taken Comments Blood Pressure 108/64 01/17/2013 10:11 AM GRADER PATROL Pulse - - Temperature - - Respiratory Rate - - Oxygen Saturation - - Inhaled Oxygen Concentration - - Weight - - Height - - Body Mass Index - - documented in this encounter Progress Notes Abe Mattson M.D. - 01/17/2013 10:06 AM CST [id number] She is here for postop colonoscopy. She had a normal colon. Biopsies we took in the terminal ileum and colon were negative. She has had some diarrhea with change in her bowel movements the last severalmonths. She wondered what that might be due to. I told she might try going off milk products, see ifthat improved, because she could be getting gas and irregular bowel from milk products, depending onwhat she takes in that particular day. We also talked a little bit about sprue, which is a possibility but I think less likely in her case. She has not lost any weight. It is kind of an infrequent problem that she gets. When it occurs, she does have some crampy pain, gas and diarrhea. I think, as far as re-scoping her, would be in 10 years because she has no family history. Abe Mattson M.D./mark Electronically Signed By: ABE MATTSON MD On: 01/30/2013 10:35 AM Source: [facility] MHSDOLBEYNONRADSYS Document Id: [id number] ER PATROL documented in this encounter Miscellaneous Notes Miscellaneous - Geneva Lazcano - 01/17/2013 11:06 AM CST Reminder Msg-Schedule Colonoscopy From: GENEVA LAZCANO ( Surgery Nurse) To: Surgery Nurse; Sent: 01/17/2013 11:06:15 GRADER PATROL Show up: 12/14/2022 11:06:00 CDT Subject: Reminder Msg-Schedule Colonoscopy Due Date/Time: 01/14/2023 11:06:00 GRADER PATROL Please Remember to: Schedule colonoscopy; rescope in [address] Mattson, last one 01-14-2013 PATIENT: ( ) Call Patient ( ) Ask Patient to ( ) ( ) Call Relative ( ) Schedule Patient ( ) ( ) Call for Soft Boarder ( ) Follow up on Results ( ) Other: PROVIDER: ( ) Call Physician ( ) Call Pharmacist ( ) Call Lab ( ) Other: Special Instructions: Comments: Source: [facility] POWERCHART Document Id: [id number] Miscellaneous - Abe Mattson M.D. - 01/17/2013 10:59 AM CST [place] [address] Visit Information Name: ANTONINA JAUREGUI [facility] Number: [id number] Current Date: 01/17/2013 10:59:42 Physicians Attending Provider: ABE MATTSON MD Primary Care Provider: MELINDA REYES MD ANTONINA [...] you have problems taking your medications. Medication/Strength Dose Route Frequency Indications/Special Instructions/Comments/Notes *polyethylene glycol 3350 with electrolytes (polyethylene glycol 3350 with electrolytes oral powder for reconstitution) See Instructions Mix 1 bottle (238 grams) with 64 oz of Gatorade in a pitcher. Drink an 8 oz glass of solution every 15 min until gone. *bisacodyl (bisacodyl 5 mg oral delayed release tablet) 10 mg Oral once Take between 12 noon and 4 pm with an 8 ounce glass of water. Take before you start the Miralax and Gatorade mixture. *magnesium citrate (magnesium citrate 1.745 g/30 mL oral liquid) 17.45 gm Oral once 4 hours before your procedure, drink the contents of this bottle with 10 ounces of water. nicotine (nicotine 21 mg/24 hr transdermal film, ER) 1 patch(es) Topical once a day *simvastatin (simvastatin 20 mg oral tablet) 20 mg Oral once a day (at bedtime) needs fasting labs sertraline (sertraline 100 mg oral tablet) 150 mg Oral once a day needs follow up buPROPion (buPROPion SR 200 mg/12 hour oral sustained release tablet) 200 mg Oral two times a day * You have let us know that you are not taking this medication as listed. Please talk with your primary care provider or the health care provider who prescribed the medication as soon as possible. Attention: If you have any medications at home that are not on this list, DO NOT take them until youcontact your provider for clarification. Your Allergies & Intolerances Substance Reaction Symptoms [...] appointment detail needed. Your Goals/Additional instructions: Source: [facility] POWERCHART Document Id: [id number] ER PATROL Miscellaneous - Abe Mattson M.D. - 01/17/2013 10:59 AM CST Ambulatory Depart Summary [address] [address] Visit Information Name: ANTONINA JAUREGUI [facility] Number: [id number] Visit Date: 01/17/2013 10:59:41 Attending Provider: ABE MATTSON MD Primary Care Provider: MELINDA REYES MD ANTONINA JAUREGUI has been given the following list of medications: Your Medications It is important to take your medications as directed. Use a pill box or chart to help remind you to take your medications. Please let your doctor or nurse know if you have problems taking your medications. Medication/Strength Dose Route Frequency Indications/Special Instructions/Comments/Notes *polyethylene glycol 3350 with electrolytes (polyethylene glycol 3350 with electrolytes oral powder for reconstitution) See Instructions Mix 1 bottle (238 grams) with 64 oz of Gatorade in a pitcher. Drink an 8 oz glass of solution every 15 min until gone. *bisacodyl (bisacodyl 5 mg oral delayed release tablet) 10 mg Oral once Take between 12 noon and 4 pm with an 8 ounce glass of water. Take before you start the Miralax and Gatorade mixture. *magnesium citrate (magnesium citrate 1.745 g/30 mL oral liquid) 17.45 gm Oral once 4 hours before your procedure, drink the contents of this bottle with 10 ounces of water. nicotine (nicotine 21 mg/24 hr transdermal film, ER) 1 patch(es) Topical once a day *simvastatin (simvastatin 20 mg oral tablet) 20 mg Oral once a day (at bedtime) needs fasting labs sertraline (sertraline 100 mg oral tablet) 150 mg Oral once a day needs follow up buPROPion (buPROPion SR 200 mg/12 hour oral sustained release tablet) 200 mg Oral two times a day * You have let us know that you are not taking this medication as listed. Please talk with your primary care provider or the health care provider who prescribed the medication as soon as possible. Attention: If you have any medications at home that are not on this list, DO NOT take them until youcontact your provider for clarification. Additional Information: [facility] Document Id: [id number] ER PATROL Miscellaneous - Geneva Lazcano - 01/17/2013 10:11 AM CST Adult Labor Union Business Representative Intake/History Adult Labor Union Business Representative Intake/History Entered On: 01/17/2013 10:13 GRADER PATROL Performed On: 01/17/2013 10:11 GRADER PATROL by GENEVA LAZCANO Intake Chief Complaint : colonoscopy results Temperature Core : 36.6 DegC(Converted to: 97.9 DegF) Systolic Blood Pressure : 108 mmHg Diastolic Blood Pressure : 64 mmHg NIBP Mean : 79 mmHg BP Location : Right upper extremity Blood Pressure Cuff Size : Regular GENEVA LAZCANO - 01/17/2013 10:11 GRADER PATROL General Info Languages : Chadian GENEVA LAZCANO - 01/17/2013 10:11 GRADER PATROL Subjective Pain Symptoms : No GENEVA LAZCANO - 01/17/2013 10:11 GRADER PATROL Dependent Habits Tobacco Use/Currently Using : No Exposure to Tobacco Smoke : Patient smokes Smoking Status : Former smoker GENEVA LAZCANO - 01/17/2013 10:11 GRADER PATROL Source[facility] Document Id: [id number] GRADER PATROL!17 ER PATROL documented in this encounter Plan of Treatment Not on filedocumented as of this encounter Visit Diagnoses Not on filedocumented in this encounter Additional Health Concerns Assessment Noted Time PHQ-9 Depression Total Score: 6 01/08/2013 9:31 AM GRADER PATROL documented as of this encounter
--- OUTSIDE RECORDS SUMMARY | 2021-10-26 16:14 | XMS_ITS | Encounter Summary ---
:1960 Author Organization [facility] Address [address] [place] [id number] Care Team Providers Name Role Phone Unavailable Primary Care Provider Unavailable Encounter Details Date Type Department Care Team Description 06/04/2013 Hospital Encounter HX [facility] FAMILY[facility] Ayden England M.D. [address] [place] [address] [phone] (Wo rk) Social History Tobacco [...] How often do you attend jain or pentecostalism services? 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 - 06/04/2013 11:03 AM CDT [id number] CHIEF COMPLAINT/REASON FOR VISIT Med check. HISTORY PRESENT ILLNESS This 52-year-old female, presents clinic for a med check. Has have been under a bit more stress due to her mother's recent placement in the memory care unit, as well as her [id number] moving into her home. She has actually started smoking a couple times per day but has plans to quit once again, in the near future. Is not fasting but will plan this in the near future as well. Has not scheduled her physical exam secondary to insurance difficulties. These appear to be coming to a head. She did discontinue the simvastatin secondary to increased liver function studies. Has not presented for repeat lipid profile. Although she is planning to sometime in the near future. EMR reviewed. MEDICATION reconciliation, 1. Sertraline 200 mg daily increased 06/05/2013. 2. Bupropion 200 mg orally twice per day. ALLERGIES CODEINE. Do not know specific symptomology. SYSTEMS REVIEW CONSTITUTIONAL: No fevers, chills, night sweats. Some unplanned weight loss. EYES: No difficulties with blurred vision. Last ophthalmic examination 2011. Has glasses. ENT: No hearing loss or oral problems. Last dental exam 2010 when she had her dentures and is planning to have a cleaning in the next couple of weeks. See the chart. CARDIOVASCULAR: No chest pain, palpitations, edema or true claudication. RESPIRATORY: No cough, wheeze, hemoptysis or shortness of breath. GASTROINTESTINAL: No abdominal pain, hematemesis, melena, dysphagia. Changing daily bowel regimen. See the chart. GENITOURINARY: See the chart. MUSCULOSKELETAL: No joint pain, swelling, stiffness or obvious deformities. INTEGUMENTARY:See the chart. NEURO: No seizures or syncopal events. PSYCHIATRIC: See the chart. ENDOCRINE: No history of diabetes or thyroid problems. HEMATOLOGIC/LYMPHATIC: No history of anemia or bleeding. ALLERGIC/IMMUNOLOGIC: Please see the chart. PAST MEDICAL HISTORY/SURGICAL HISTORY Surgeries 1.left knee surgery with residual episodic pain 1976. Other hospitalizations vaginal delivery. Other injuries: See above. Other major illnesses 1. Premature menopause at age 33. 2. Episodic GERD currently stable. 3. Osteopenia confirmed on DEXA scan . 4. Anxiety with depressive features. 5. Hyperlipidemia. 6. Overweight. 7. Restless legs, currently stable. 8. Periodontitis, resolved with placement of dentures. 9. Nicotine dependence. 10. Stable echocardiogram 07/07/2010 obtained secondary to atypical chest pain with ejection fractionof 65% PREVENTIVE SERVICES: Tobacco a couple of cigarettes per day. [...] of year. DEXA scan: 02/23/2010. SOCIAL HISTORY Alcohol: None. Couple of cups of coffee per day. A cup of tea each day. FAMILY HISTORY Mother in the memory care unit in the detention since 2013. Mother has diabetes mellitus and [...] daughters with depression. VITAL SIGNS Weight 74 kilos, temperature 36.2, respiratory rate 16, pulse 72, systolic 108, diastolic 66. PHYSICAL EXAMINATION Eyes: PERRL. ENT: Ears: Tympanic membranes are frias. Subjectively intact hearing. Nose: Mucosal membranes pink and moist. Septum is midline. Oral: No exudates. Good fitting dentures. No pharyngeal erythema. Neck: Supple. Trachea midline. THYROID: No thyroid masses, tenderness or enlargement. HEART: Regular rate and rhythm. No clicks, rubs or murmurs. LUNGS: Clear to auscultation. No palpable chest wall masses. ABDOMEN: Soft, nontender, bowel sounds present, no organomegaly. PERIPHERAL VESSELS: Positive radial, ulnar, femoral, posterior tib, dorsalis pulses. GAIT: Smooth, easy. MENTAL: Oriented times three. Speech is of normal rate and volume, articulate, coherent, spontaneouswith no notation of abnormalities. Thought processes reveal intact abstract reasoning and computation. No loose tangential circumstantial thoughts. No hallucinations. No delusions. No preoccupation with violence. No homicidal or suicidal ideations. Some increased psychosocial stress with some rumination. Excellent insight into situation and illness process. Oriented to person, place and time. Recent and remote memory are intact. Attention span and concentration are at baseline. Language and fund of knowledge suggest average intellect. Mood and affect reflect no evidence of depression, anxiety, agita tion, hypomania or emotional lability. IMPRESSION/REPORT/PLAN 1. Depression with anxiety. 2. Nicotine dependence. 3. Dyslipidemia. 4. Over weight. 5. Osteopenia. PLAN: Will recommend checking laboratory evaluation with a CBC, basic metabolic profile (BMP), AST, follow-up accordingly. Would recommend increasing the sertraline as needed. May need to consider addition of another medication if she does not stabilize. Encouraged her to continue her supportive measures and her excellent lifestyle changes including her plans to stop smoking. She will follow-up sometime in the future for a repeat lipid profile. Then will consider using another product as the simvastatin lead to liver function elevations. Signs and symptoms leading to urgent evaluation are reviewed.She is planning to have her well woman examination sometime in the future as well. Danica England M.D./pos Electronically Signed By: DANICA ENGLAND MD On: 06/09/2013 08:21 AM Modified by and Electronically Signed by: DANICA ENGLAND MD On: 06/09/2013 08:21 AM Source: [facility] MHSDOLBEYNONRADSYS Document Id: [id number] documented in this encounter Nursing Notes Dominick Bradley L.P.N. - 06/11/2013 11:42 AM CDT labs 06-04-13 Result card sent. Electronically Signed By: DOMINICK BRADLEY LPN On: 06/11/2013 11:43 AM Source: [facility] POWERCHART Document Id: [id number] documented in this encounter Miscellaneous Notes Miscellaneous - Danica England M.D. - 06/04/2013 12:12 PM CDT Ambulatory Patient Summary [place] [id number] [facility] POLLY Juarez [id number] Visit Information Name: GEMA JAUREGUI [facility] Number: [id number] Current Date: 06/04/2013 12:12:50 Physicians Attending Provider: DANICA ENGLAND MD Primary [...] tablet) 1 Tablet(s), Oral, two times aday Routed to [facility] [place] [address] [place] [address] sertraline (sertraline 100 mg oral tablet) 2 Tablet(s), Oral, once a day New Routed to [facility] [place] [address] Stop Taking the Following Medications: Medication list as of 06-04-13 12:12 Attention: If you have any medications at [...] Electronically Signed By: DANICA ENGLAND MD Signed On:04-JUN-2013 12:12:40 Your Allergies & Intolerances Substance Reaction Symptoms [...] appointment detail needed. Your Goals/Additional instructions: Source: [facility] POWERCHART Document Id: [id number] Miscellaneous - Danica England M.D. - 06/04/2013 12:12 PM CDT Ambulatory Discharge Medication List [place] [id number] [place], [place] [phone] Visit Information Name: GEMA JAUREGUI [facility] Number: [id number] Visit Date: 06/04/2013 12:12:49 Attending Provider: DANICA ENGLAND MD Primary Care [...] tablet) 1 Tablet(s), Oral, two times aday Routed to [facility] [place] [address] [place] [address] sertraline (sertraline 100 mg oral tablet) 2 Tablet(s), Oral, once a day New Routed to [facility] [place] [address] [place] [address] Stop Taking the Following Medications: Medication list as of 06-04-13 12:12 Attention: If you have any medications at [...] Electronically Signed By: DANICA ENGLAND MD Signed On:04-JUN-2013 12:12:40 Additional Information: Source: [facility] Patient Conversation Media Document Id: [id number] Nazcellariana - Danica England M.D. 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 Entered On: 06/04/2013 11:16 CDT Performed On: 06/04/2013 11:13 CDT by DOMINICK BRADLEY LPN Intake Chief Complaint : med check Temperature Core : 36.2 DegC(Converted to: 97.2 DegF) (LOW) Peripheral Pulse Rate : 76 /min Respiratory Rate : 16 /min Systolic Blood Pressure : 108 mmHg Diastolic Blood Pressure : 66 mmHg NIBP Mean : 80 mmHg BP Location : Left upper extremity Blood Pressure Cuff Size : Regular Actual Weight : 74 kg(Converted to: 163 lb 2 oz) Dosing Weight Clinic : 74 kg DOMINICK BRADLEY ANDRIA - 06/04/2013 11:13 CDT General Info Languages : Greenlandic DOMINICK BRADLEY [place]RI[place] - 06/04/2013 11:13 CDT Subjective Pain Symptoms : Yes DOMINICK BRADLEY [place] - 06/04/2013 11:13 CDT Pain Pain Assessment Grid Pain 1 Location : Hand (Comment: thumb [DOMINICK BRADLEYFranny AYERS - 06/04/2013 11:13 CDT] ) Laterality : Left DOMINICK BRADLEY [place] - 06/04/2013 11:13 CDT Dependent Habits Tobacco Use/Currently Using : Yes Exposure to Tobacco Smoke : Patient smokes Smoking Status : Current every day smoker DOMINICK BRADLEY RIGOBERTO AYERS - 06/04/2013 11:13 CDT Source: [employer] Document Id: [id number] CDT!26 documented in this encounter Plan of Treatment Not on filedocumented as of this encounter Procedures Procedure Name Priority Date/Time Associated Comments Diagnosis AUTOMATED DIFFERENTIAL, Routine 06/04/2013 11:50 Results for this B AM CDT procedure are i n the results section. CBC WITH DIFFERENTIAL, B Routine 06/04/2013 11:50 Results for this AM CDT procedure are i n the results section. ASPARTATE Routine 06/04/2013 11:50 Results for this AMINOTRANSFERASE (AST), AM CDT proc edure are in S/P the results section. BASIC METABOLIC PANEL, Routine 06/04/2013 11:50 R esults for this S/P AM CDT procedure are i n the results section. documented in this encounter Results Automated Differential (06/04/2013 11:50 AM CDT) P athologist Signature Neutro % 51.5 34.0 - POWERCHART 71.1 Lymphocytes % 38.6 19.3 - POWERCHART 51.7 HX [place] % 7.6 4.7 - 12.5 POWERCHART HX Eos % 2.0 0.7 - 5.8 POWERCHART HX Baso % 0.3 0.1 - 1.2 POWERCHART Absolute 3.52 1.70 - POWERCHART Neutrophils 7.00 109L Lymphocytes 2.64 0.90 - POWERCHART 2.90 X109L Monocytes 0.52 0.30 - POWERCHART 0.90 X109L Eosinophils 0.14 0.05 - POWERCHART 0.50 X109L Absolute 0.02 0.00 - POWERCHART Basophil 0.30 X109L Specimen Anatomical Collection Method Collection Time Receive d Time (Source) Location / / Volume Laterality Blood 06/04/2013 11:50 06/04/2013 AM CDT 11:50 AM CDT Danica England M.D. LAB BLOOD ADD-ON Performing Organization Address City/State/ZIP Code Phon e Number POWERCHART CBC with Differential (06/04/2013 11:50 AM CDT) P athologist Signature Leukocytes 6.8 3.4 - 10.5 POWERCHART X109L Erythrocytes 4.17 3.90 - POWERCHART 5.03 [id number] Hemoglobin 12.4 12.0 - POWERCHART 15.5 GDL Hematocrit 38.3 34.9 - POWERCHART 44.5 MCV 91.8 82.0 - POWERCHART 98.0 FL Platelet Count 222 150 - 450 POWERCHART X109L HX RDW 14.4 11.9 - POWERCHART 15.5 HXDifferential? Auto POWERCHART Specimen (Source) Anatomical Collection Method Collection Time Re ceived Time Location / / Volume Laterality Blood 06/04/2013 11:50 AM CDT Danica England M.D. LAB BLOOD ADD-ON Performing Organization Address City/State/ZIP Code Phon e Number POWERCHART AST (Aspartate Aminotransferase) (06/04/2013 11:50 AM CDT) Patholo gist Method Time Signature Aspartate 29 8 - 43 POWERCHART Aminotransferase UNITL (AST), S Specimen (Source) Anatomical Collection Method Collection Time Re ceived Time Location / / Volume Laterality Blood 06/04/2013 11:50 AM CDT Danica England M.D. LAB BLOOD ADD-ON Performing Organization Address City/State/ZIP Code Phon e Number POWERCHART (ABNORMAL) BMP (Basic Metabolic Panel) (06/04/2013 11:50 AM CDT) P athologist Signature BUN (Blood Urea 16 6 - 20 POWERCHART Nitrogen), S MGDL Creatinine 0.9 0.7 - 1.2 POWERCHART MGDL Glucose 87 POWERCHART Potassium, S 4.5 3.5 - 4.8 POWERCHART MMOLL Sodium, S 146 (H) 135 - 145 POWERCHART MMOLL Chloride, S 103 100 - 108 POWERCHART MMOLL CO2 Total 30 22 - 30 POWERCHART MMOLL Calcium, Total, 9.4 8.5 - 10.5 POWERCHART S MGDL HXeGFR (MDRD) >60 MLMIN POWERCHART eGFR >60 MLMIN POWERCHART Black/ Specimen (Source) Anatomical Collection Method Collection Time Re ceived Time Location / / Volume Laterality Blood 06/04/2013 11:50 AM CDT Danica England M.D. LAB BLOOD ADD-ON Performing Organization Address City/State/ZIP Code Phon e Number POWERCHART documented in this encounter Visit Diagnoses Not on filedocumented in this encounter Additional Health Concerns Assessment Noted Time PHQ-9 Depression Total Score: 4 06/04/2013 12:09 PM CD T documented as of this encounter
--- OUTSIDE RECORDS SUMMARY | 2021-10-26 16:15 | XMS_ITS | Encounter Summary ---
:1960 [facility] Address [address] [place] [id number] Care Team Providers Name Role Phone Unavailable Primary Care Provider Unavailable Encounter Details Date Type Department Care Team Description 03/09/2011 Hospital Encounter HX [facility] Ayden England M.D. [address] [place] [address] 021 (Wo rk) Social History Tobacco Use [...] How often do you attend lutheran or mormon services? Patien t refused 12/11/2018 [...] Sign Reading Time Taken Comments Blood Pressure 110/72 03/09/2011 8:52 AM PAYROLL AND BENEFITS MANAGER Pulse 68 03/09/2011 8:52 AM PAYROLL AND BENEFITS MANAGER Temperature - - Respiratory Rate 12 03/09/2011 8:52 AM PAYROLL AND BENEFITS MANAGER Oxygen Saturation - - Inhaled Oxygen Concentration - - Weight 76.3 kg (168 lb 3.4 oz) 03/09/2011 8:52 AM PAYROLL AND BENEFITS MANAGER Height 169 cm (5' 6.54) 03/09/2011 8:52 AM PAYROLL AND BENEFITS MANAGER Body Mass Index 26.72 03/09/2011 8:52 AM PAYROLL AND BENEFITS MANAGER documented in this encounter H&P Notes Danica England M.D. - 03/09/2011 12:00 AM CST [id number] CHIEF COMPLAINT/REASON FOR VISIT Annual exam. HISTORY OF PRESENT ILLNESS This 50-year-old female presents to the clinic for annual evaluation. Is feeling tired. Has quit working over the past two years. Has been under some psychosocial stress. All of the above are stabilizing but in this time period she did gain quite a bit of weight. She has just recently restarted exercising. Her daughter is wondering if she is depressed. The patient herself states she has good days and bad days and her only concern is that she is tired and she has difficulties following her diet. She is really not interested in changing her mediation particularly during the winter time when she has more symptomology. EMR is reviewed. Please see the chart. Clinic Face Sheet/Medication Sheet are reviewed. Please see the chart. CURRENT MEDICATIONS Post-visit Medication Reconciliation Wellbutrin sustained release 200 mg orally twice a day. Celexa 40 mg each day Calcium with vitamin D twice a day Multiple vitamin each day Fish oil each day. ALLERGIES Codeine. SYSTEMS REVIEW Constitutional: Slow weight gain over the past few years. No fevers, chills or night sweats. See above. Eyes: No blurred or double vision and no eye pain. Last ophthalmic exam January of 2011, new glasses are on their way. ENT: No hearing loss, no tinnitus, no ear pain, no dizziness, no nasal congestion, no sore throat and no hoarseness. Last dental exam when she received dentures. CV: No palpitations, no ankle edema, no true claudication and no chest pain. Respiratory: No cough, no wheezing, no hemoptysis and no shortness of breath. GI: No abdominal pain and no heartburn. No problems with dysphagia, hematemesis or change in daily bowel regimen. No hematochezia and no problems with hemorrhoids. See the chart. : No pain with urination. No urinary frequency. No vaginal bleeding or spotting. No vaginal discharge. No history of abnormal Pap smears. No concerns regarding sexually transmitted diseases. See the chart. Musculoskeletal: No back, neck or joint pain apart from episodic knee and back pain but currently stable. No swelling or stiffness. No myalgias or weakness. Integumentary: No changes in skin lesions, hair or nails. Wears sunscreen. Does self breast exams. Neuro: No history of syncopal events or seizures. Psychiatric: See the chart. Endocrine: No history of diabetes or thyroid problems. Hematologic/lymphatic: No history of anemia or bleeding. Allergic/immunologic: Please see above. PAST MEDICAL/SURGICAL HISTORY Surgeries: Left knee surgery with residual episodic pain 1976. Other hospitalizations vaginal delivery. Other injuries See above. Other major illnesses Premature menopause at age 33. Episodic GERD currently stable. Osteopenia confirmed on DEXA scan -2003. Anxiety with depressive features. Hyperlipidemia. Overweight. Restless legs, currently stable. Periodontitis, resolved with placement of dentures. Nicotine dependence. PREVENTIVE SERVICES Tobacco use: A couple of cigarettes each day and was well aware of the need to quit but is unable nor is she interested at this time. Mammogram: 02-23-2010 advised, planned for the near future. Pap smear: 03-09-2011. Chlamydia: Non applicable secondary to stated age. Colon screening: Advised. Paper work completed to see Dr. Marquis. Depression: Yes. PHQ-9 score of 9. Asthma: No Lipids: 03-09-2011 Tdap booster: 2006 Pneumovax: Non applicable secondary to stated age. Influenza: Declines. DEXA scan: 02-23-2010 SOCIAL HISTORY Alcohol: None. Other social drugs: None. Caffeine use: A couple of cups of coffee a month. A cup of tea a day. Seatbelt use: Wears. Diet: Tries to follow a healthy diet. See above. Last breast exam: 2009. Calcium intake: Adequate. Exercises one mile twice per day walking the dog. FAMILY HISTORY Mother has diabetes mellitus and schizophrenia. Has [...] type of poorly defined cancer in his younger years. Brother in good health. Two sisters: One with hypothyroidism. Maternal aunt with bipolar disease. Three daughters with depression. VITAL SIGNS DATE/TIME 03-09-2011 HEIGHT 169 cm WEIGHT 76.3 kg TEMPERATURE 36.2 degreesC RESP RATE 12 / min PULSE 68 SYSTOLIC 110 DIASTOLIC 72 PHYSICAL EXAM AREA EXAM TEXT GENERAL Neatly dressed and well groomed and in no apparent distress. SKIN Solar changes in a sun wear distribution. Free from lesions. No palpable masses. HEAD No trauma, tenderness or masses. EYES Conjunctiva clear. PERRL. Full EOM. Funduscopic exam grossly normal. ENT ENT: External ears and nose without gross abnormalities. Tympanic membranes are frias. Subjectively intact hearing. Nasal mucosa membranes pink and moist. Septum is midline. Oral: No exudates. Good fitting dentures are noted. No pharyngeal erythema or exudates. Neck supple. Trachea midline. LYMPH NODES Negative evaluation of neck, axilla and groin. THYROID No thyroid masses, tenderness or enlargement. BREASTS No masses or tenderness. No galactorrhea. Negative evaluation of the axilla. PERIPHERAL Positive radial, ulnar, femoral, posterior tibial and dorsalis VESSELS pedis pulses. HEART Regular rate and rhythm. No clicks, rubs or murmurs. Carotid arteries reveal no bruits. Abdominal aorta is not prominent. No ankle edema. No varicosities. LUNGS Clear to auscultation. No palpable chest wall masses. ABDOMEN Soft and nontender. Bowel sounds present. No organomegaly. PELVIS No bony abnormalities. RECTUM Patent anus. Good sphincter tone. No hemorrhoids. Hemoccult negative stool in the vault. GENITALIA External genitalia appropriate for stated age. Urethral meatus free from lesions. Supple vaginal vault. Multiparous appearing cervix with a grade I uterine distention noted. Pap smear with spatula and cytobrush obtained with no friability. Uterus freely mobile, no nodularity. Adnexal region free from nodules and nontender. No tenderness with either speculum or bimanual exam. SPINE Range of motion consistent with stated age. No bony abnormalities. JOINTS Range of motion consistent with stated age. No bony abnormalities. EXTREMITIES Nails and digits reflect some degenerative changes consistent with patient's stated age and body habitus. Range of motion of head, neck, ribs, right and left upper extremity, right and left lower extremity consistent with the patient's stated age. GAIT Smooth easy. MENTAL Speech is of normal rate and volume, articulate, coherent, spontaneous with no notation of abnormalities. Thought processes reveal intact abstract reasoning and computation. No loose tangential circumstantial thoughts. No hallucinations. No delusions. No preoccupation with violence. No homicidal or suicidal ideations. Increased psychosocial somatic ruminations. Excellent insight into situation and illness process. Oriented to person, place and time. Recent and remote memory are intact. Attention span and concentration are at baseline. Language and fund of knowledge suggest average intellect. Mood and affect reflect some evidence of depression, some anxiety, no agitation, no hypomania and no emotional lability. NEURO Reflexes 2+ in triceps, biceps, knees and ankles. IMPRESSION/REPORT/PLAN 1. Annual exam 2. Dysthymic disorder. 3. Hyperlipidemia. 4. Osteopenia. 5. Overweight. 6. History of premature menopause. 7. Nicotine dependence. PLAN: 1. Reviewed exercise, cholesterol, diet/weight loss, calcium intake, alcohol use, immunizations, tobacco use, caffeine use, self-breast exams, mammography, colonic studies including colonoscopy or hemoccult testing, hormone replacement therapy as appropriate, seatbelt use, back care, depression, eye exams and other issues. Following up if any change occurs or as noted. 2. Encouraged smoking cessation. Follow up ThinPrep accordingly. Will check CBC, basic metabolic profile, AST, lipid profile and follow up. Follow up the ThinPrep and the mammogram. Consider changing to a different antidepressant. The patient would prefer to wait until spring. Signs and symptoms to lead to a more urgent evaluation are reviewed. Otherwise as noted. RODRI/luis antonio Signed Danica England M.D. Family Medicine Electronically Signed By: DANICA ENGLAND MD On: 03/09/2011 03:38 PM Modified by and Electronically Signed by: DANICA ENGLAND MD On: 03/09/2011 03:38 PM Source: [facility] MHSDOLBEYNONRADSYS Document Id: [id number] OLL AND BENEFITS MANAGER documented in this encounter Nursing Notes Conversion, Historical Provider Ser - 03/21/2011 8:48 AM CST Regarding Colonoscopy Letter mailed to patient asking her to call to schedule a colonoscopy that has been requested by Dr. England. Electronically Signed By: MADHU CABA LPN On: 03/21/2011 08:48 AM Source: [facility] POWERCHART Document Id: [id number] Conversion, Historical Provider Ser - 03/15/2011 9:55 AM CST Regarding Colonoscopy Message left for the patient to call to schedule a colonoscopy. Electronically Signed By: MADHU CABA LPN On: 03/15/2011 09:56 AM Source: [employer] Document Id: [id number] Oksana Bradley L.P.N. - 03/14/2011 12:01 PM CST Labs 03-09-11 Result card sent. Electronically Signed By: OKSANA BRADLEY LPN On: 03/14/2011 12:02 PM Source: [employer] Document Id: [id number] OLL AND BENEFITS MANAGER Conversion, Historical Provider Ser - 03/13/2011 9:54 AM CST Regarding Colonoscopy Message left for the patient to call to schedule a colonoscopy. Electronically Signed By: MADHU CABA LPN On: 03/13/2011 09:54 AM Source: [employer] Document Id: [id number] documented in this encounter Miscellaneous Notes Miscellaneous - Bishop Jiménez L.P.N. - 11/30/2011 12:02 PM CDT Phq-9 due From: BISHOP JIMÉNEZ LPN To: OKSANA BRADLEY LPN; Sent: 11/30/2011 12:02:35 CDT Show up: 02/07/2012 12:02:00 PAYROLL AND BENEFITS MANAGER Subject: Phq-9 due Due Date/Time: 03/09/2012 12:02:00 PAYROLL AND BENEFITS MANAGER Please Remember to: Patient is due for 1 year PHQ-9 with in 30 days of 03/09/2012. This can be done over the phone or by a office visit. If done over the phone and patient scores 9 or greater please advise patient to see provider. Please call patient and advise. PATIENT: ( ) Call Patient ( ) Ask Patient to ( ) ( ) Call Relative ( ) Schedule Patient ( ) ( ) Call for Machine Grinder ( ) Follow up on Results ( ) Other: PROVIDER: ( ) Call Physician ( ) Call Pharmacist ( ) Call Lab ( ) Other: Special Instructions: Comments: Source: [employer] Document Id: [id number] Miscellaneous - Meri Morataya L.P.N. - 03/15/2011 3:51 PM CST PHQ-9 From: MERI MORATAYA LPN To: OKSANA BRADLEY LPN; Sent: 03/15/2011 15:51:37 PAYROLL AND BENEFITS MANAGER Show up: 08/09/2011 15:51:00 CDT Subject: PHQ-9 Due Date/Time: 09/07/2011 15:51:00 CDT Please Remember to: Call patient and have them schedule a 6 month follow up of depression. PHQ-9 needs wendy completed within 30 days of 09/07/2011 PATIENT: ( x ) Call Patient ( ) Ask Patient to ( ) ( ) Call Relative ( x ) Schedule Patient ( ) ( ) Call for Machine Grinder ( ) Follow up on Results ( ) Other: PROVIDER: ( ) Call Physician ( ) Call Pharmacist ( ) Call Lab ( ) Other: Special Instructions: Comments: Source: [employer] Document Id: [id number] Zach - Danica England M.D. - 03/09/2011 12:22 PM CST Meaningful Use Influenza Exclusion Meaningful Use Influenza Exclusion Entered On: 03/09/2011 12:22 PAYROLL AND BENEFITS MANAGER Performed On: 03/09/2011 12:22 PAYROLL AND BENEFITS MANAGER by DANICA ENGLAND MD Influenza Vaccine Exclusion Influenza Vaccine Exclusion : Patient declined DANICA ENGLAND MD - 03/09/2011 12:22 PAYROLL AND BENEFITS MANAGER Source: [facility] POWERCHART Document Id: [id number] PAYROLL AND BENEFITS MANAGER!3 OLL AND BENEFITS MANAGER Miscellaneous - Danica England M.D. - 03/09/2011 12:09 PM CST Ambulatory Patient Summary [address] [address] Visit Information Name: ANTONINA JAUREGUI Current Date: 03/09/2011 12:09:50 Primary Care Provider: DANICA ENGLAND MD Your Medications Here is a list of your medications. It is important to take your medications as directed. Use a pillbox or chart to help remind you to take your medications. Please let your doctor or nurse know if you have problems taking your medications. Medication/Strength Dose Route Frequency Indications/Special Instructions/Comments citalopram (citalopram 40 mg oral tablet) 40 mg Oral once a day needs follow up buPROPion (buPROPion SR 200 mg/12 hour oral sustained release tablet) 200 mg Oral two times a day omega-3 polyunsaturated fatty acids (Fish Oil) multivitamin (Multiple Vitamins oral tablet) calcium-vitamin D (Calcium 600+D) Your Allergies & Intolerances Substance Reaction Symptoms Category Comments codeine Drug Your Problem List Problem Status Onset Comments Dysthymic Disorder Active Premature menopause Active 03/12/1994 Osteopenia Active 07/11/2003 DEXA Osteopenia Active 07/11/2003 02/23/2010 low normal DEXA Hyperlipidemia Active Tobacco dependence Active Personal History of Tobacco Use Active Restless legs Active Pain in knee Active Overweight Active Aggressive Periodontitis, Generalized Active Chest pain, unspecified. Active 07/04/2010 Hospitalization NFD Negative R/O normal echocardiogram Your Recommendations We want to make sure you get the tests, immunizations, and guidance you need to stay healthy. Here is a customized list of recommendations, based on information we have in your medical record. Your doctor may have additional recommendations for you, based on your personal medical history and risk factors. You can help us by calling us to make an appointment when you are due for your tests. Additional information regarding recommendations: Test/Treatment Last Done Next Due Additional Information Depression: PHQ-9 every 6 months 03/09/2011 09/08/2011 Health Assessment every 1 year 03/09/2011 03/08/2012 Screening Colonoscopy or Flex Sig or Occult Blood 03/09/2011 Checks for signs of cancer of the colon. Lipid Panel every 5 years Age 20-75 03/09/2011 03/07/2016 Checks blood for good (HDL) and bad (LDL) cholesterol. Know your numbers, they are one indicator of your risk for heart attack and stroke. Vaccine: Flu every 1 year 03/09/2011 Immunization to help prevent you from getting the flu strain expected to be a problem for that year's flu season. Vaccine: Tetanus every 10 years 07/29/1996 07/27/2006 Immunization to help prevent you from getting the serious disease Tetanus (Lockjaw). Your Upcoming Appointments Date Time Location Reason Provider 03/14/2011 09:30 FB Mammo screen Your Goals/Additional instructions: Source: [facility] POWERCHART Document Id: [id number] OLL AND BENEFITS MANAGER Miscellaneous - Danica England M.D. - 03/09/2011 12:09 PM CST Ambulatory Depart Summary [address] [address] Visit Information Name: ANTONINA JAUREGUI Current Date: 03/09/2011 12:09:49 Physicians Attending Physician: DANICA ENGLAND MD Primary Care Provider: DANICA ENGLAND MD ANTONINA JAUREGUI has been given the following list of medications: Your Medications It is important to take your medications as directed. Use a pill box or chart to help remind you to take your medications. Please let your doctor or nurse know if you have problems taking your medications. Medication/Strength Dose Route Frequency Indications/Special Instructions/Comments citalopram (citalopram 40 mg oral tablet) 40 mg Oral once a day needs follow up buPROPion (buPROPion SR 200 mg/12 hour oral sustained release tablet) 200 mg Oral two times a day omega-3 polyunsaturated fatty acids (Fish Oil) multivitamin (Multiple Vitamins oral tablet) calcium-vitamin D (Calcium 600+D) Additional Information: Source: [facility] [employer] Document Id: [id number] OLL AND BENEFITS MANAGER Zach - Danica England M.D. - 03/09/2011 9:12 AM CST PHQ-9 PHQ-9 Entered On: 03/09/2011 9:12 PAYROLL AND BENEFITS MANAGER Performed On: 03/09/2011 9:12 PAYROLL AND BENEFITS MANAGER by DANICA ENGLAND MD PHQ-9 Little interest [...] Not at all PHQ-9 Calculated Score : 9 Problems make work, home, or dealing with others : Somewhat difficult DANICA ENGLAND MD - 03/09/2011 9:12 PAYROLL AND BENEFITS MANAGER Source: [facility] [employer] Document Id: [id number] PAYROLL AND BENEFITS MANAGER!13 OLL AND BENEFITS MANAGER Zach - Oksana Bradley L.P.N. - 03/09/2011 8:52 AM CST Adult Supervisor Hanging And Trimming Intake/History Adult Supervisor Hanging And Trimming Intake/History Entered On: 03/09/2011 8:53 PAYROLL AND BENEFITS MANAGER Performed On: 03/09/2011 8:52 PAYROLL AND BENEFITS MANAGER by OKSANA BRADLEY LPN Intake Chief Complaint : physical Temperature Core : 36.2C(Converted to: 97.2DegF) (LOW) Peripheral Pulse Rate : 68/min Respiratory Rate : 12/min (LOW) Systolic Blood Pressure : 110mmHg Diastolic Blood Pressure : 72mmHg NIBP Mean : 85mmHg BP Location : Left upper extremity Blood Pressure Cuff Size : Regular Height : 169cm(Converted to: 5ft 7inch(es), 66.54inch(es)) Actual Weight : 76.3kg(Converted to: 168lb 3oz) Dosing Weight Clinic : 76.30kg Clinic BSA : 1.89 Body Mass Index : 26.71kg/m2 OKSANA BRADLEY LPN - 03/09/2011 8:52 PAYROLL AND BENEFITS MANAGER Subjective Pain Symptoms : No OKSANA BRADLEY LPN - 03/09/2011 8:52 PAYROLL AND BENEFITS MANAGER Dependent Habits Tobacco Use/Currently Using : Yes Smoking Status : Current some day smoker OKSANA BRADLEY LPN - 03/09/2011 8:52 PAYROLL AND BENEFITS MANAGER Allergy Allergies (Active) codeine Estimated Onset Date: Unspecified ; Created By: DANICA ENGLAND MD; Reaction Status: Active ; Category: Drug ; Substance: codeine ; Type: Allergy ; Updated By: DANICA ENGLAND MD; Reviewed Date: 03/09/2011 8:48 PAYROLL AND BENEFITS MANAGER Source: [facility] POWERCHART Document Id: [id number] PAYROLL AND BENEFITS MANAGER!21 OLL AND BENEFITS MANAGER Miscellaneous - Oksana Bradley LBrigitteP.NBrigitte - 03/09/2011 8:52 AM CST Health Assessment Health Assessment Entered On: 03/09/2011 8:54 PAYROLL AND BENEFITS MANAGER Performed On: 03/09/2011 8:52 PAYROLL AND BENEFITS MANAGER by OKSANA BRADLEY LPN Health Assessment Complete Health Assessment Complete or Modified : Annual Health Assessment Annual Health Assessment Completed : Yes OKSANA BRADLEY LPN - 03/09/2011 8:52 PAYROLL AND BENEFITS MANAGER Nutrition Nutrition Risk Factors by History Adult : None OKSANA BRADLEY LPN - 03/09/2011 8:52 PAYROLL AND BENEFITS MANAGER Functional Current Daily Living Assistance : None OKSANA BRADLEY RIGOBERTO AYERS - 03/09/2011 8:52 PAYROLL AND BENEFITS MANAGER Dependent Habits Tobacco Use/Currently Using : Yes Smoking Status : Current some day smoker OKSANA BRADLEY RIGOBERTO AYERS - 03/09/2011 8:52 PAYROLL AND BENEFITS MANAGER Psychosocial Domestic Abuse Concerns : None OKSANA BRADLEY RIGOBERTO AYERS - 03/09/2011 8:52 PAYROLL AND BENEFITS MANAGER Advance Directive Advanced Directives : No OKSANA BRADLEY RIGOBERTO AYERS - 03/09/2011 8:52 PAYROLL AND BENEFITS MANAGER Educ Needs Learning Style Preference Adult Grid Patient : Printed materials Family : Printed materials OKSANA BRADELY RIGOBERTO AYERS - 03/09/2011 8:52 PAYROLL AND BENEFITS MANAGER Source: [employer] Document Id: [id number] PAYROLL AND BENEFITS MANAGER!19 OLL AND BENEFITS MANAGER documented in this encounter Plan of Treatment Not on filedocumented as of this encounter Procedures Procedure Name Priority Date/Time Associated Comments Diagnosis THINPREP SCREEN HPV Routine 03/09/2011 1:07 Resul ts for this REFLEX PM PAYROLL AND BENEFITS MANAGER procedure are i n the results section. DIPSTICK, U Routine 03/09/2011 9:38 Results for this AM PAYROLL AND BENEFITS MANAGER procedure are i n the results section. LIPID PANEL, S Routine 03/09/2011 9:36 Results fo r this AM PAYROLL AND BENEFITS MANAGER procedure are i n the results section. AUTOMATED DIFFERENTIAL, Routine 03/09/2011 9:36 R esults for this B AM PAYROLL AND BENEFITS MANAGER procedure are i n the results section. CBC WITH DIFFERENTIAL, B Routine 03/09/2011 9:36 Results for this AM PAYROLL AND BENEFITS MANAGER procedure are i n the results section. ASPARTATE Routine 03/09/2011 9:36 Results for this AMINOTRANSFERASE (AST), AM PAYROLL AND BENEFITS MANAGER proc edure are in S/P the results section. THYROID-STIMULATING Routine 03/09/2011 9:36 Resul ts for this HORMONE-SENSITIVE AM PAYROLL AND BENEFITS MANAGER procedure are in (S-TSH) the results section. BASIC METABOLIC PANEL, Routine 03/09/2011 9:36 Re sults for this S/P AM PAYROLL AND BENEFITS MANAGER procedure are i n the results section. documented in this encounter Results Pathology ThinPrep Screen HPV Reflex (03/09/2011 1:07 PM PAYROLL AND BENEFITS MANAGER) [facility] Method Time Signature Interpretation [id number] POWERCHART HXThPrep Scrn See Comment POWERCHART [facility] Comment: A. ??ThinPrep Pap Test Screen (Cervical/ Endocervical HPV Reflex): Satisfactory for evaluation. Negative for intraepithelial lesion or m alignancy. HXThPrep Scrn [facility] See Comment ADRY RCHART Comment: Report electronically signed by JASON Landeros (ASCP) 03/14/2011 08:11 Interpreted by: JASON Landeros (ASCP) [facility] See Comment POWERCHART Comment: A. ??ThinPrep Pap Test Screen (Cervical/ Endocervical HPV Reflex): Received cloudy specimen in ThinPrep via l. Test Performed by: [facility] D[facility] Lab Med and Pathology [address] [place] [address] Interpreter Deaf: Darius weston III, M.D. Specimen (Source) Anatomical Collection Method Collection Time Re ceived Time Location / / Volume Laterality Cervix/Endocervix 03/09/2011 1:07 PM PAYROLL AND BENEFITS MANAGER Danica England M.D. LAB PAP PATHDX ORDERABLES Performing Organization Address City/State/[facility] Code Phon e Number POWERCHART (ABNORMAL) Dipstick, Urine (03/09/2011 9:38 AM PAYROLL AND BENEFITS MANAGER) [facility] Method Time Signature Source Clean Void POWERCHART Urine HXUr Color Yellow POWERCHART Appearance Clear POWERCHART Glucose Negative Negative POWERCHART HXBILIRUBIN Negative Negative POWERCHART Ketones, QL(U) Trace (A) Negative POWERCHART Specific 1.025 (A) 1.020 POWERCHART Seney, POCT, U HXBLOOD Moderate (A) Negative POWERCHART pH, POCT, Urine 5.5 5.0 - 8.0 POWERCHART Protein, Ur, Dip Negative Negative POWERCHART Urobilinogen 0.2 0.2 - 1.0 POWERCHART HXNITRITE Negative Negative POWERCHART Leukocyte Trace (A) Negative POWERCHART Esterase Specimen (Source) Anatomical Collection Method Collection Time Re ceived Time Location / / Volume Laterality Urine 03/09/2011 9:38 AM PAYROLL AND BENEFITS MANAGER Danica England M.D. LAB URINE ORDERABLES Performing Organization Address City/State/ZIP Code Phon e Number POWERCHART Automated Differential (03/09/2011 9:36 AM PAYROLL AND BENEFITS MANAGER) P athologist Signature Neutro % 46.3 34.0 - 71.1 POWERCHART Lymphocytes % 42.7 19.3 - 51.7 POWERCHART HX [place] % 9.2 4.7 - 12.5 POWERCHART HX Eos % 1.5 0.7 - 5.8 POWERCHART HX Baso % 0.3 0.1 - 1.2 POWERCHART Specimen Anatomical Collection Method Collection Time Receive d Time (Source) Location / / Volume Laterality Blood 03/09/2011 9:36 AM 2 9:36 PAYROLL AND BENEFITS MANAGER AM PAYROLL AND BENEFITS MANAGER Danica England M.D. LAB BLOOD ADD-ON Performing Organization Address City/[facility]/ZIP Code Phon e Number POWERCHART CBC with Differential (03/09/2011 9:36 AM PAYROLL AND BENEFITS MANAGER) P athologist Signature Leukocytes 6.0 3.5 - 10.5 POWERCHART UNITL Erythrocytes 4.46 3.90 - POWERCHART 5.03 UNITL Hemoglobin 13.7 12.0 - POWERCHART 15.5 GDL Hematocrit 41.3 34.9 - POWERCHART 44.5 MCV 92.6 81.6 - POWERCHART 98.3 FL Platelet Count 272 150 - 450 POWERCHART UNITL HX RDW 13.2 11.9 - POWERCHART 15.5 HXDifferential? Auto POWERCHART Specimen (Source) Anatomical Collection Method Collection Time Re ceived Time Location / / Volume Laterality Blood 03/09/2011 9:36 AM PAYROLL AND BENEFITS MANAGER Danica England M.D. LAB BLOOD ADD-ON Performing Organization Address City/State/ZIP Code Phon e Number POWERCHART Thyroid-Stimulating Hormone-Sensitive (s-TSH) (03/09/2011 9:36 AM PAYROLL AND BENEFITS MANAGER) P athologist Signature TSH, Sensitive 2.4 0.3 - 5.0 POWERCHART MIUL Comment: Test Performed by: [facility] [address] [place] [id number] Interpreter Deaf: Darius weston III, M.D. Specimen (Source) Anatomical Collection Method Collection Time Re ceived Time Location / / Volume Laterality Blood 03/09/2011 9:36 AM PAYROLL AND BENEFITS MANAGER Danica England M.D. LAB BLOOD ADD-ON Performing Organization Address City/State/ZIP Code Phon e Number POWERCHART (ABNORMAL) BMP (Basic Metabolic Panel) (03/09/2011 9:36 AM PAYROLL AND BENEFITS MANAGER) P athologist Signature BUN (Blood Urea 15 6 - 20 POWERCHART Nitrogen), S MGDL Creatinine 0.8 0.7 - 1.2 POWERCHART MGDL Glucose 109 POWERCHART Potassium, S 4.3 3.5 - 4.8 POWERCHART MMOLL Sodium, S 144 135 - 145 POWERCHART MMOLL Chloride, S 102 100 - 108 POWERCHART MMOLL CO2 Total 32 (H) 22 - 29 POWERCHART MMOLL Calcium, Total, 9.9 8.5 - 10.5 POWERCHART S MGDL HXeGFR (MDRD) >60 MLMIN POWERCHART BUN/Creatinine 18 POWERCHART Ratio eGFR >60 MLMIN POWERCHART Black/ Specimen (Source) Anatomical Collection Method Collection Time Re ceived Time Location / / Volume Laterality Blood 03/09/2011 9:36 AM PAYROLL AND BENEFITS MANAGER Danica England M.D. LAB BLOOD ADD-ON Performing Organization Address City/State/ZIP Code Phon e Number POWERCHART (ABNORMAL) Lipid Panel (03/09/2011 9:36 AM PAYROLL AND BENEFITS MANAGER) [facility] Method Time Signature Cholesterol, Total 326 (H) 0 - 200 POWERCHART MGDL HX HDL 54.0 40.0 - POWERCHART 60.0 MGDL Triglycerides 139 0 - 150 POWERCHART MGDL Calculated LDL 244 (H) 0 - 100 POWERCHART MGDL Specimen (Source) Anatomical Collection Method Collection Time Re ceived Time Location / / Volume Laterality Blood 03/09/2011 9:36 AM PAYROLL AND BENEFITS MANAGER Danica England M.D. LAB BLOOD ADD-ON Performing Organization Address City/State/ZIP Code Phon e Number POWERCHART AST (Aspartate Aminotransferase) (03/09/2011 9:36 AM PAYROLL AND BENEFITS MANAGER) [facility] Method Time Signature Aspartate 35 8 - 43 POWERCHART Aminotransferase UNITL (AST), S Specimen (Source) Anatomical Collection Method Collection Time Re ceived Time Location / / Volume Laterality Blood 03/09/2011 9:36 AM PAYROLL AND BENEFITS MANAGER Danica England M.D. LAB BLOOD ADD-ON Performing Organization Address City/State/ZIP Code Phon e Number POWERCHART documented in this encounter Visit Diagnoses Not on filedocumented in this encounter Additional Health Concerns Assessment Noted Time PHQ-9 Depression Total Score: 9 03/09/2011 9:12 AM PAYROLL AND BENEFITS MANAGER documented as of this encounter
--- OUTSIDE RECORDS SUMMARY | 2021-10-26 16:15 | XMS_ITS | Encounter Summary ---
:1960 Author Organization [facility] Address [address] [place] [address] Care Team Providers Name Role Phone Unavailable Primary Care Provider Unavailable Encounter Details Date Type Department Care Team Description 12/31/2008 Hospital Encounter HX NO MAPPING Danica England M.D. [address] [place] [address] 021 (Wo rk) Social History Tobacco Use [...] How often do you attend zoroastrianism or lutheran services? Patien t refused 12/11/2018 Do you [...] of this encounter Miscellaneous Notes Miscellaneous - Sybil Mireles, MiguelangelPBrigitteN. - 06/23/2008 11:15 AM CDT PHQ-9 PHQ-9 Entered On: 09/01/2009 11:16 CDT Performed On: 06/23/2008 11:15 CDT by SYBIL MIRELES LPN PHQ-9 Little interest or pleasure in doing things: Not at all Feeling down, depressed, or hopeless: Several days Trouble falling or staying asleep, or sleeping too much: Several days Feeling tired or having little energy: Several days Poor appetite or overeating: More than half the days Feeling bad about yourself or that you are a failure: Several days Trouble concentrating on things: Several days Moving or speaking slowly; restless or fidgety: More than half the days Thoughts that you would be better off /hurting self: Not at all PHQ-9 Calculated Score: 9 PHQ-9 Date Completed: 06/23/2008 CDT Problems make work, home, or dealing with others: Somewhat difficult SYBIL MIRELES LPN - 09/01/2009 11:15 CDT Source: [facility] [employer] Document Id: [id number] CDT!14 documented in this encounter Plan of Treatment Not on filedocumented as of this encounter Procedures Procedure Name Priority Date/Time Associated Diagnosis Comme nts DX CHEST AP OR PA Routine 12/31/2008 4:34 PM Resu lts for this AND LATERAL 2 VIEWS [employer]ACLE DATABASE DEVELOPER procedur e are in the results section. documented in this encounter Results DX Chest AP or PA and Lateral 2 Views (12/31/2008 4:34 PM ORACLE DATABASE DEVELOPER) Anatomical Region Laterality Modality Chest N/A Radiographic Imaging Specimen (Source) Anatomical Collection Method Collection Time Re ceived Time Location / / Volume Laterality 12/31/2008 4:34 PM ORACLE DATABASE DEVELOPER Addenda Addendum by ProviderCharito M.D. o n 12/31/2008 4:34 PM ORACLE DATABASE DEVELOPER RAD^^^MA XR CHEST 2 VIEWS 12/31/2008 16:34:00 XR CHEST 2 VIEWS Addendum by ProviderCharito M.D. o n 12/31/2008 4:34 PM ORACLE DATABASE DEVELOPER RAD^^^MA XR CHEST 2 VIEWS 12/31/2008 16:34:00 XR CHEST 2 VIEWS Addendum by ProviderCharito M.D. o n 12/31/2008 4:34 PM ORACLE DATABASE DEVELOPER RAD^^^OW XR Chest 2 Views 12/31/2008 16:34:00 Impressions 12/31/2008 4:47 PM ORACLE DATABASE DEVELOPER Stable examination. No acute disease of the chest. Narrative 12/31/2008 4:47 PM ORACLE DATABASE DEVELOPER PA and lateral views of the chest were o btained. ?? COMPARISON: ??03/13/2005 ?? FINDINGS: ?? The cardiac mediastinal silhouette has a stable normal appearance. There is no pulmonary vascular congestio n. The lungs are clear of focal infiltrate or air space opacity. T here is a stable nodular density in the right lower lobe possibly relating to nipple shadow. No pleural effusion or pneumothorax is seen . The visualized osseous structures are unremarkable. ?? Procedure Note Hard, Ramon Mitchell M.D. / Provider, Edith hu M.D. - 08/01/2016 PA and lateral views of the chest were o btained. COMPARISON: 03/13/2005 FINDINGS: The cardiac mediastinal silhouette has a stable normal appearance. There is no pulmonary vascular congestio n. The lungs are clear of focal infiltrate or air space opacity. T here is a stable nodular density in the right lower lobe possibly relating to nipple shadow. No pleural effusion or pneumothorax is seen . The visualized osseous structures are unremarkable. IMPRESSION: Stable examination. No acute disease of the chest. Tomy Corrales Jr. REdward.M.S. IMG DIAGNOSTIC IMAGI NG PROCEDURES documented in this encounter Visit Diagnoses Not on filedocumented in this encounter Additional Health Concerns Assessment Noted Time PHQ-9 Depression Total Score: 9 06/23/2008 11:15 AM CD T documented as of this encounter
--- OUTSIDE RECORDS SUMMARY | 2021-10-26 16:15 | XMS_ITS | Encounter Summary ---
:1960 Author Organization [facility] Address [address] [place] [address] Care Team Providers Name Role Phone Unavailable Primary Care Provider Unavailable Encounter Details Date Type Department Care Team Description 09/06/2012 Hospital Encounter HX [facility] Ayden England M.D. [address] [place] [address] 021 (Wo rk) Social History Tobacco Use [...] How often do you attend congregation or christianity services? Patien t refused 12/11/2018 [...] as of this encounter Nursing Notes Dominick Bradley, L.P.N. - 09/06/2012 3:22 PM CDT Labs 09-06-12 Result card sent. Electronically Signed By: DOMINICK BRADLEY LPN On: 09/06/2012 03:22 PM Source: [facility] POWERCHART Document Id: [id number] documented in this encounter Plan of Treatment Not on filedocumented as of this encounter Procedures Procedure Name Priority Date/Time Associated Comments Diagnosis ASPARTATE Routine 09/06/2012 12:40 Results for this AMINOTRANSFERASE (AST), PM CDT proc edure are in S/P the results section. documented in this encounter Results AST (Aspartate Aminotransferase) (09/06/2012 12:40 PM CDT) [facility] gist Method Time Signature Aspartate 36 8 - 43 POWERCHART Aminotransferase UNITL (AST), S Specimen (Source) Anatomical Collection Method Collection Time Re ceived Time Location / / Volume Laterality Blood 09/06/2012 12:40 PM CDT Danica England M.D. LAB BLOOD ADD-ON Performing Organization Address City/State/ZIP Code Phon e Number POWERCHART documented in this encounter Visit Diagnoses Not on filedocumented in this encounter Additional Health Concerns Assessment Noted Time PHQ-9 Depression Total Score: 8 08/21/2012 4:36 PM CDT documented as of this encounter
--- OUTSIDE RECORDS SUMMARY | 2021-10-26 16:15 | XMS_ITS | Encounter Summary ---
:1960 Author Organization [facility] Address [address] [place] [address] Care Team Providers Name Role Phone Unavailable Primary Care Provider Unavailable Encounter Details Date Type Department Care Team Description 09/27/2012 Hospital Encounter HX [facility] Ayden England M.D. [address] [place] [phone] (Wo rk) Social History Tobacco [...] 12/11/2018 relatives? How often do you attend mandaeism or taoism services? Patien t refused 12/11/2018 Do you belong to any clubs or organizations such as Patient refused 12/11/2018 mandaeism groups, unions, fraternal or athletic groups, or [...] Reading Time Taken Comments Blood Pressure 110/70 09/27/2012 4:38 PM CDT Pulse 72 09/27/2012 4:38 PM CDT Temperature - - Respiratory Rate 12 09/27/2012 4:38 PM CDT Oxygen Saturation - - Inhaled Oxygen Concentration - - Weight 74.7 kg (164 lb 10.9 oz) 09/27/2012 4:38 PM CDT Height - - Body Mass Index 26.15 03/09/2011 8:52 AM DIRECTOR HYDROGEN STORAGE ENGINEERING documented in this encounter Progress Notes Danica England M.D. - 09/27/2012 4:21 PM CDT [id number] CHIEF COMPLAINT/REASON FOR VISIT Followup. HISTORY OF PRESENT ILLNESS Iooba-ljk-rqfm-old female presents to clinic for follow up. Is feeling a bit better but definitely not to her baseline. Feels like she has a bit more ambition and is trying to begin an exercise programand follow her diet a bit more closely, but continues to have down days. Has not started the nicotine patch. Wants to start it when she is feeling like her mood is back to a stable baseline. EMR reviewed. Please see the chart. CURRENT MEDICATIONS 1. Wellbutrin SR 200 mg orally 2 times a day. 2. Sertraline 100 mg 1.5 tablets orally each day, increased 09/28/2012. 3. Multivitamin 1 time a day. 4. Simvastatin 20 mg 1 time a day. 5. Nicotine patch to be started in the near future. PREVENTIVE SERVICES Tobacco use: Yes up to 1 pack per day, is somewhat interested in smoking cessation, has tried multiple products and is thinking about trying the patch again if she has prescription. Mammogram: 02/23/2010 advised on numerous occasions and is planning to go to [facility] in [place] in the near future. Pap smear: 03/09/2011. Chlamydia: Non applicable secondary to stated age. Colon screening: Has plans to discuss this with her provider in [place] and declines scheduling here in [place], declines FIT card. Depression: Yes. PHQ-9 score of 7. Asthma: No. Lipids: 06/03/2012. Tdap booster: 2005. Pneumovax: Non applicable secondary to stated age. Influenza: Nonapplicable secondary to time of year. DEXA scan: 02/23/2010. VITAL SIGNS WEIGHT: 74.7 kg. TEMPERATURE: 36.6. RESPIRATORY RATE: 12. PULSE: 72. BLOOD PRESSURE: 110/70. PHYSICAL EXAMINATION GENERAL: Neatly dresses, well-groomed. MENTAL: Speech is of normal rate and volume, articulate, coherent, spontaneous with no notation of abnormalities. Thought processes reveal intact abstract reasoning and computation. No loose tangentialcircumstantial thoughts. No hallucinations. No delusions. No preoccupation with violence. No homicidal or suicidal ideations. Continued psychosocial ruminations, but decreased. Gaining insight into situation and illness process. Oriented to person, place and time. Recent and remote memory are intact. Attention span and concentration are nearing baseline. Language and fund of knowledge suggest averageintellect. Mood and affect today reflect no evidence of depression, anxiety, agitation, hypomania oremotional lability. IMPRESSION/REPORT/PLAN 1. Anxiety with depression/dysthymic disorder. 2. Hyperlipidemia. PLAN: Will increase her sertraline. Risks and benefits discussed. All questions answered. She will follow up fasting in about a month and review her lipids as well as her sertraline. She is comfortablewith this plan. Spent the entire 20 minute visit in discussion. Danica England M.D./yayo Electronically Signed By: DANICA ENGLAND MD On: 10/02/2012 10:52 AM Modified by and Electronically Signed by: DANICA ENGLAND MD On: 10/02/2012 10:52 AM Source: [facility] MHSDOLBEYNONRADSYS Document Id: [id number] documented in this encounter Miscellaneous Notes Miscellaneous - Danica England M.D. - 09/27/2012 5:58 PM CDT Ambulatory Patient Summary [address] [address] Visit Information Name: GEMA HARMAN [facility] Number: [id number] Current Date: 09/27/2012 17:58:57 Physicians Attending Provider: DANICA ENGLAND MD Primary Care Provider: DANICA ENGLAND MD Your Medications Here is a list of your medications. It is important to take your medications as directed. Use a pillbox or chart to help remind you to take your medications. Please let your doctor or nurse know if you have problems taking your medications. Medication/Strength Dose Route Frequency Indications/Special Instructions/Comments/Notes sertraline (sertraline 100 mg oral tablet) 150 mg Oral once a day buPROPion (buPROPion SR 200 mg/12 hour oral sustained release tablet) 200 mg Oral two times a day needs follow up simvastatin (simvastatin 20 mg oral tablet) 20 mg Oral once a day (at bedtime) nicotine (nicotine 21 mg/24 hr transdermal film, ER) 1 patch(es) Topical once a day Attention: If you have any medications at [...] Time Location Reason Provider No Appointments found Your Goals/Additional instructions: [facility] Document Id: [id number] Miscellaneous - Danica England M.D. - 09/27/2012 5:58 PM CDT Ambulatory Depart Summary [address] [address] Visit Information Name: GEMA HARMAN [facility] Number: [id number] Visit Date: 09/27/2012 17:58:57 Attending Provider: DANICA ENGLAND MD Primary Care Provider: DANICA ENGLAND MD GEMA HARMAN has been given the following list of medications: Your Medications It is important to take your medications as directed. Use a pill box or chart to help remind you to take your medications. Please let your doctor or nurse know if you have problems taking your medications. Medication/Strength Dose Route Frequency Indications/Special Instructions/Comments/Notes sertraline (sertraline 100 mg oral tablet) 150 mg Oral once a day buPROPion (buPROPion SR 200 mg/12 hour oral sustained release tablet) 200 mg Oral two times a day needs follow up simvastatin (simvastatin 20 mg oral tablet) 20 mg Oral once a day (at bedtime) nicotine (nicotine 21 mg/24 hr transdermal film, ER) 1 patch(es) Topical once a day Attention: If you have any medications at home that are not on this list, DO NOT take them until youcontact your provider for clarification. Additional Information: [facility] Document Id: [id number] Miscellaneous - Danica England M.D. 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 Intake/History Entered On: 09/27/2012 16:40 CDT Performed On: 09/27/2012 16:38 CDT by DOMINICK BRADLEY LPN Intake Chief Complaint : recheck Temperature Core : 36.6 DegC(Converted to: 97.9 DegF) Peripheral Pulse Rate : 72 /min Respiratory Rate : 12 /min (LOW) Systolic Blood Pressure : 110 mmHg Diastolic Blood Pressure : 70 mmHg NIBP Mean : 83 mmHg BP Location : Left upper extremity Blood Pressure Cuff Size : Regular Actual Weight : 74.7 kg(Converted to: 164 lb 11 oz) Dosing Weight Clinic : 74.7 kg DOMINICK BRADLEY LPN - 09/27/2012 16:38 CDT General Info Languages : Qatari DOMINICK BRADLEY LPN - 09/27/2012 16:38 CDT Subjective Pain Symptoms : No SCOTT BRADLEYFER RIGOBERTO AYERS - 09/27/2012 16:38 CDT Dependent Habits Tobacco Use/Currently Using : Yes Exposure to Tobacco Smoke : Patient smokes Smoking Status : Current every day smoker DOMINICK BRADLEY LPN - 09/27/2012 16:38 CDT Source: [facility] Document Id: [id number] CDT!21 documented in this encounter Plan of Treatment Not on filedocumented as of this encounter Visit Diagnoses Not on filedocumented in this encounter Additional Health Concerns Assessment Noted Time PHQ-9 Depression Total Score: 7 09/27/2012 5:23 PM CDT documented as of this encounter
--- OUTSIDE RECORDS SUMMARY | 2021-10-26 16:15 | XMS_ITS | Encounter Summary ---
:1960 Author Organization [facility] Address [address] [place] [address] Care Team Providers Name Role Phone Unavailable Primary Care Provider Unavailable Encounter Details Date Type Department Care Team Description 12/01/2011 Hospital Encounter HX [facility] Ayden England M.D. [address] [place] [address] 021 (Wo rk) Social History Tobacco Use [...] How often do you attend christianity or pentecostalism services? Patien t refused 12/11/2018 [...] Sign Reading Time Taken Comments Blood Pressure 100/68 12/01/2011 9:48 AM CDT Pulse 80 12/01/2011 9:48 AM CDT Temperature - - Respiratory Rate 16 12/01/2011 9:48 AM CDT Oxygen Saturation - - Inhaled Oxygen Concentration - - Weight 75.8 kg (167 lb 1.7 oz) 12/01/2011 9:48 AM CDT Height - - Body Mass Index 26.54 03/09/2011 8:52 AM DIRECTOR PERIOPERATIVE documented in this encounter Progress Notes Danica England M.D. - 12/01/2011 9:41 AM CDT [id number] CHIEF COMPLAINT/REASON FOR VISIT Follow-up ankle HISTORY OF PRESENT ILLNESS 51-year-old female presents to clinic to follow-up her ankle sprain. Is in a type of a Cam walker since she twisted her ankle 10/28/2011. She was seen in the Urgent Care in [place]. had unremarkablex-rays but swelling was noted. Was placed in the walker which she has been wearing on a fairly regular basis. She does find if she takes it off she has significant pain. She does try to walk and is only able to walk on the inside aspect of her foot. Has marked pain with movement of the ankle. Continues to be a bit swollen. Episodically takes a bit of pain medication, [id number] in nature with some but not total relief of her symptoms. Is worried she may have done something more serious to her ankle. EMR reviewed. Please see the chart. CURRENT MEDICATIONS Post-visit Medication Reconciliation Wellbutrin sustained release 200 mg orally twice a day Celexa 40 mg each day Calcium with vitamin D twice a day Multiple vitamin each day Fish oil each day PREVENTIVE SERVICES Tobacco use: A couple of [...] Depression: Yes. PHQ-9 score of 9. Asthma: No. Lipids: 03-09-2011. Tdap booster: 2005. Pneumovax: Non applicable secondary to stated age. Influenza: Declines. DEXA scan: 02-23-2010. VITAL SIGNS WEIGHT: 75.8 kg TEMPERATURE: 36.6 RESP RATE: 60 PULSE: 80 SYSTOLIC: 100 DIASTOLIC: 68 PHYSICAL EXAM EXTREMITIES: Tenderness over the middle and posterior ligaments of the ankle. Positive dorsal, pedal, posterior tib pulses. Able to stand on toes and heels and support total body weight on the injured limb but it is markedly tender. X-RAY: No acute bony abnormalities. IMPRESSION / REPORT / PLAN Protracted ankle sprain PLAN: Would recommend continuing to wear her modified Cam boot. Will arrange for follow up with orthopedist. Appointment is scheduled with Dr. Mullen 12/19/2011 in [place]. Will likely need some physical therapy under the direction of the orthopedist if not other treatment modalities. Signs and symptoms that lead to urgent evaluation are reviewed. She is comfortable with this plan and will followup as noted. Danica England M.D./mary Electronically Signed By: DANICA ENGLAND MD On: 12/05/2011 12:16 PM Modified by and Electronically Signed by: DANICA ENGLAND MD On: 12/05/2011 12:16 PM Source: [facility] MHSDOLBEYNONRADSYS Document Id: [id number] documented in this encounter Miscellaneous Notes Miscellaneous - Danica England M.D. - 12/01/2011 5:51 PM CDT Ambulatory Patient Summary [address] [address] Visit Information Name: GEMA JAUREGUI Current Date: 12/01/2011 17:51:12 Physicians Attending Provider: DANICA ENGLAND MD Primary Care Provider: DANICA ENGLAND MD Your Medications Here is a list of your medications. It is important to take your medications as directed. Use a pillbox or chart to help remind you to take your medications. Please let your doctor or nurse know if you have problems taking your medications. Medication/Strength Dose Route Frequency Indications/Special Instructions/Comments buPROPion (buPROPion SR 200 mg/12 hour oral sustained release tablet) 200 mg Oral two times a day citalopram (citalopram 40 mg oral tablet) 40 mg Oral once a day needs follow up omega-3 polyunsaturated fatty acids (Fish Oil) multivitamin (Multiple Vitamins oral tablet) calcium-vitamin D (Calcium 600+D) Attention: If you have any medications at [...] Generalized Active Chest pain, unspecified. Active 07/04/2010 07/14/10 Hospitalization NFD Negative R/O normal echocardiogram Your Upcoming Appointments Date Time Location Reason Provider No Appointments found Your Goals/Additional instructions: Source: [facility] POWERCHART Document Id: [id number] Zach - Danica England M.D. - 12/01/2011 5:51 PM CDT Ambulatory Depart Summary [address] [address] Visit Information Name: GEMA JAUREGUI Visit Date: 12/01/2011 17:51:12 Attending Provider: DANICA ENGLAND MD Primary Care [...] medications. Medication/Strength Dose Route Frequency Indications/Special Instructions/Comments buPROPion (buPROPion SR 200 mg/12 hour oral sustained release tablet) 200 mg Oral two times a day citalopram (citalopram 40 mg oral tablet) 40 mg Oral once a day needs follow up omega-3 polyunsaturated fatty acids (Fish Oil) multivitamin (Multiple Vitamins oral tablet) calcium-vitamin D (Calcium 600+D) Attention: If you have any medications at home that are not on this list, DO NOT take them until youcontact your provider for clarification. Additional Information: Source: [facility] DAXKOCHART Document Id: [id number] Zach - Danica England M.D. - 12/01/2011 5:47 PM CDT PHQ-9 PHQ-9 Entered On: 12/01/2011 17:47 CDT Performed On: 12/01/2011 17:47 CDT by DANICA ENGLAND MD PHQ-9 Little interest or pleasure in doing things : Not at all Feeling down, depressed, or hopeless : Not at all Trouble falling or staying asleep, or sleeping too much : Not at all Feeling tired or having little energy : Not at all Poor appetite or overeating : Nearly every day Feeling bad about yourself or that you [...] difficult at all DANICA ENGLAND MD - 12/01/2011 17:47 CDT Source: [facility] Document Id: [id number] Miscellaneous - Dominick Bradley L.P.N. - 12/01/2011 9:48 AM CDT Adult Assembler Billiard Table Intake/History Adult Assembler Billiard Table Intake/History Entered On: 12/01/2011 9:49 CDT Performed On: 12/01/2011 9:48 CDT by DOMINICK BRADLEY LPN Intake Chief Complaint : recheck Temperature Core : 36.6C(Converted to: 97.9DegF) Peripheral Pulse Rate : 80/min Respiratory Rate : 16/min Systolic Blood Pressure : 100mmHg Diastolic Blood Pressure : 68mmHg NIBP Mean : 79mmHg BP Location : Left upper extremity Blood Pressure Cuff Size : Regular Actual Weight : 75.8kg(Converted to: 167lb 2oz) Dosing Weight Clinic : 75.80kg DOMINICK BRADLEY LPN - 12/01/2011 9:48 CDT Subjective Pain Symptoms : No DOMINICK BRADLEY LPN - 12/01/2011 9:48 CDT Dependent Habits Tobacco Use/Currently Using : No Smoking Status : Former smoker DOMINICK BRADLEY LPN - 12/01/2011 9:48 CDT Allergy Allergies (Active) codeine Estimated Onset Date: Unspecified ; Created By: DANICA ENGLAND MD; Reaction Status: Active ; Category: Drug ; Substance: codeine ; Type: Allergy ; Updated By: DANICA ENGLAND MD; Reviewed Date: 12/01/2011 9:47 CDT Source: [facility] POWERCHART Document Id: [id number] Miscellaneous - Danica England M.D. - 12/01/2011 12:00 AM CDT [id number] [facility] December 01, 2011 ANNI MULLEN MD [address] [place] [address] RE: Gema Jauregiu : [address] Mullen: This letter is in regards to Gema Jauregui, a 51-year-old female, who will be seeing you on December 18 at 9:50 a.m. secondary to a protracted ankle sprain. She is in a modified CAM walker which was placed by the Urgent Care in [place] on October 28, 2011, when she injured her ankle. She has been wearing it quite faithfully since that time, but her ankle continues to give her greater than one would expect discomfort and pain. She will be hand carrying her x-rays from this appointment and from her most recent evaluation in [place] for your perusal prior to her appointment. Her other health issues include a history of left knee surgery with residual episodic pain in 1976. She has had four vaginal deliveries. She did have premature menopause at age 33 and was episodically on hormones, but not on a regular basis. She has GERD which is currently stable. She has osteopenia co nfirmed on DEXA scan. She has anxiety with depression which has been fairly stable, hyperlipidemia, restless legs, periodontal disease, nicotine dependence and is slightly overweight. She continues to smoke a few cigarettes each day and is well aware of the risks of this issue. She does not use any alcohol. She drinks a couple cups of coffee per month and a cup of tea each day. Family history is pertinent for her mother with diabetes and schizophrenia. Her father is in good health. Maternal grandmother with hypothyroidism, Meniere's and degenerative joint disease. Maternal grandfather had lung cancer which lead to his at age 80 and he had been a smoker. Her paternal grandmother at age 88 secondary to old age. Paternal grandfather secondary to poorly defined cancer in his younger years. She has a brother in good health and two sisters; one with hypothyroidism. Three daughters with depression as well as an aunt who had bipolar disease. Thank you for your care in regards to this delightful lady. If you have any questions, please contact my office. Sincerely, Danica England M.D. Department of Family Medicine sks Electronically Signed By: DANICA ENGLAND MD On: 12/05/2011 09:50 AM Modified by and Electronically Signed by: DANICA ENGLAND MD On: 12/05/2011 09:50 AM Source: [facility] MHSDOLBEYNONRADSYS Document Id: [id number] documented in this encounter Plan of Treatment Not on filedocumented as of this encounter Procedures Procedure Name Priority Date/Time Associated Diagnosis Comme nts DX ANKLE LEFT 3+ Routine 12/01/2011 10:02 AM Resu lts for this VIEWS CDT procedure are i n the results section. documented in this encounter Results DX Ankle Left 3+ Views (12/01/2011 10:02 AM CDT) Anatomical Region Laterality Modality Lower Extremity, Ankle Left Radiographic Imag ing Specimen (Source) Anatomical Collection Method Collection Time Re ceived Time Location / / Volume Laterality 12/01/2011 10:02 AM CDT Addenda Addendum by ProviderCharito M.D. o n 12/01/2011 10:02 AM CDT RAD^^^OW XR Ankle Left 3 or more views 12/01/2011 10:02:00 Addendum by ProviderCharito M.D. o n 12/01/2011 10:02 AM CDT RAD^^^MA XR Ankle Left 3 or more views 12/01/2011 10:02:00 Narrative 12/01/2011 10:35 AM CDT 3 views of the left ankle demonstrate no evidence of an acute fracture or dislocation. The ankle morti se is normally aligned. Minimal plantar and Achilles spurs are i ncidentally noted off the calcaneus. The surrounding soft tissues appear normal. Impression: No acute pathology. Procedure Note Sam Lockett M.D. / Provider, Baldomero urbina M.D. - 07/19/2016 3 views of the left ankle demonstrate no evidence of an acute fracture or dislocation. The ankle morti se is normally aligned. Minimal plantar and Achilles spurs are i ncidentally noted off the calcaneus. The surrounding soft tissues appear normal. Impression: No acute pathology. Aithai See R.T.(R) IMG DIAGNOSTIC IMAGING PROCE BOOKER documented in this encounter Visit Diagnoses Not on filedocumented in this encounter Additional Health Concerns Assessment Noted Time PHQ-9 Depression Total Score: 3 12/01/2011 5:47 PM CDT documented as of this encounter
--- OUTSIDE RECORDS SUMMARY | 2021-10-26 16:15 | XMS_ITS | Encounter Summary ---
:1960 Author Organization [facility] Address [address] [place] [id number] Care Team Providers Name Role Phone Unavailable Primary Care Provider Unavailable Encounter Details Date Type Department Care Team Description 11/24/2008 Hospital Encounter HX NO MAPPING Danica England M.D. [address] [place] [address] 021 (Wo rk) Social History Tobacco Use [...] 12/11/2018 relatives? How often do you attend jehovah's witness or evangelical services? Patien t refused 12/11/2018 Do you belong to any clubs or organizations such as Patient refused 12/11/2018 jehovah's witness groups, unions, fraternal or athletic groups, or [...] Diagnosis Comme nts BI BREAST SCREENING Routine 11/24/2008 8:56 AM Re sults for this BILATERAL CDT procedure are i n the results section. documented in this encounter Results BI Breast Screening Bilateral (11/24/2008 8:56 AM CDT) Anatomical Region Laterality Modality Breast Bilateral Mammography Specimen (Source) Anatomical Collection Method Collection Time Re ceived Time Location / / Volume Laterality 11/24/2008 8:56 AM CDT Addenda Addendum by ProviderCharito M.D. o n 11/24/2008 8:56 AM CDT RAD^^^OW MA Mammo Screening w ??CADD 11/24/2008 08:56:00 Addendum by ProviderCharito M.D. o n 11/24/2008 9:19 AM CDT RAD^^^OW MA Mammo Screening w ??CADD 11/24/2008 09:19:00 Addendum by Provider, Eva Mcneill o n 11/24/2008 8:56 AM CDT RAD^^^MA MA MAMMO SCREENING W/CADD 11/24/2008 08:56:00 Addendum by Provider, Eva Mnceill o n 11/24/2008 9:19 AM CDT RAD^^^MA MA MAMMO SCREENING W/CADD 11/24/2008 09:19:00 Narrative 11/24/2008 10:12 AM CDT HISTORY: Routine screening. ?? COMPARISON: 04/30/2007 and 02/06/2005. ?? FINDINGS: Breasts are of intermediate ra diographic density in a stable pattern. No suspicious dominant mass or clustered microcalcifications suspicious for malignancy identified. Th ere is no suspicious interval change compared with 04/30/2007. ?? CAD was utilized in the interpretation o f this exam. ?? FINDINGS: Stable mammogram, no radiograp hic evidence of malignancy. ?? ACR code: 1, negative mammogram. Procedure Note Graham Kevin Jr., M.D. / Charito Hassan M.D. - 08/01/2016 HISTORY: Routine screening. COMPARISON: 04/30/2007 and 02/06/2005. FINDINGS: Breasts are of intermediate ra diographic density in a stable pattern. No suspicious dominant mass or clustered microcalcifications suspicious for malignancy identified. Th ere is no suspicious interval change compared with 04/30/2007. CAD was utilized in the interpretation o f this exam. FINDINGS: Stable mammogram, no radiograp hic evidence of malignancy. ACR code: 1, negative mammogram. Claribel Kwon R.T.(R), R.T.(R)(M) IMG BI PROCEDURES documented in this encounter Visit Diagnoses Not on filedocumented in this encounter Additional Health Concerns Assessment Noted Time PHQ-9 Depression Total Score: 9 06/23/2008 11:15 AM CD T documented as of this encounter
--- OUTSIDE RECORDS SUMMARY | 2021-10-26 16:15 | XMS_ITS | Encounter Summary ---
:1960 Author Organization [facility] Address [address] [place] [address] Care Team Providers Name Role Phone Unavailable Primary Care Provider Unavailable Encounter Details Date Type Department Care Team Description 08/21/2012 Hospital Encounter HX [facility] Ayden England M.D. [address] [place] [phone] (Wo rk) Social History Tobacco [...] How often do you attend methodist or mandaen services? 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 - 08/21/2012 2:15 PM CDT [id number] CHIEF COMPLAINT/REASON FOR VISIT Multiple issues. HISTORY OF PRESENT ILLNESS 52-year-old female presents to clinic secondary to multiple issues. Interested in beginning a cholesterol lowering medication. Has just increased her sertraline up to 100 mg. Has been on this dose for a week or two. [place] worse after she weaned off the Celexa. Continues to smoke. Is trying to follow her diet but it is difficult. Has plans for well woman examination with her CATERING CONVENTION SERVICES MANAGER in [place]. She has also had a cold for the last few days with headache and congestion. EMR reviewed. Please see the chart. CURRENT MEDICATIONS 1. Wellbutrin SR 200 mg orally 2 times a day. 2. Sertraline 100 mg 1 time a day recently increased. 3. Multivitamin 1 time a day. 4. Simvastatin 20 mg 1 time a day. 5. Nicotine patch to be started tomorrow. PAST MEDICAL/SURGICAL HISTORY PREVENTIVE SERVICES Tobacco use: Yes up to 1 pack per day, is somewhat interested in smoking cessation, has tried multiple products and is thinking about trying the patch again if she has prescription. Mammogram: 02/23/2010 advised on numerous occasions and is planning to go to [facility] in [place] in the near future. Pap smear: 03/09/2011. Chlamydia: Non applicable secondary to stated age. Colon screening: Has plans to discuss this with her provider in [place] and declines scheduling here in [place], declines FIT card. Depression: Yes. PHQ-9 score of 8. Asthma: No. Lipids: 06/03/2012. Tdap booster: 2006. Pneumovax: Non applicable secondary to stated age. Influenza: Nonapplicable secondary to time of year. DEXA scan: 02/23/2010. VITAL SIGNS WEIGHT: 74.7 kg. TEMPERATURE: 36.4. RESPIRATORY RATE: 16. PULSE: 80. BLOOD PRESSURE: 110/68. PHYSICAL EXAMINATION GENERAL: Obvious congestion. HEAD: No evidence of trauma, tenderness or masses. ENT: Ears: Tympanic membranes are frias. Subjectively intact hearing. Nose: Mucosal membranes slightly boggy. Oral: Minimal pharyngeal erythema. Good fitting dentures. Neck: Range of motion consistent with patient's stated age body habitus. Trachea midline. LYMPH NODES: No cervical adenopathy. THYROID: No thyroid masses, tenderness or enlargement. HEART: Regular rate and rhythm. LUNGS: Clear to auscultation. MENTAL: Speech is of normal rate and volume, articulate, coherent, spontaneous with no notation of abnormalities. Thought processes reveal intact abstract reasoning and computation. No loose tangentialcircumstantial thoughts. No hallucinations. No delusions. No preoccupation with violence. No homicidal or suicidal ideations. Continued psychosocial somatic ruminations. Gaining insight into situation and illness process. Oriented to person, place and time. Recent and remote memory are intact. Attention span and concentration are decreased. Language and fund of knowledge suggest average intellect. Mood and affect reflect evidence of depression, some anxiety, no agitation, no hypomania, some emotional lability. IMPRESSION/REPORT/PLAN 1. Upper respiratory infection. 2. Nicotine dependence. 3. Overweight. 4. Hyperlipidemia. 5. Dysthymia. PLAN: Risks and benefits of medications discussed. All questions answered. Signs and symptoms to lead to urgent evaluation are reviewed. Recheck AST in 10 days and recheck AST and lipid profile in 2 months if initial evaluation is stable. Recheck of her dysthymia in 1 month. Continue supportive measures for upper respiratory infection. She is comfortable with this plan and will follow up if any change occurs or as noted. Danica England M.D./alexandria Electronically Signed By: DANICA ENGLAND MD On: 08/23/2012 12:08 PM Modified by and Electronically Signed by: DANICA ENGLAND MD On: 08/23/2012 12:08 PM Source: [facility] MHSDOLBEYNONRADSYS Document Id: [id number] documented in this encounter Miscellaneous Notes Miscellaneous - Danica England M.D. - 08/21/2012 4:42 PM CDT Ambulatory Patient Summary [address] [address] Visit Information Name: GEMA JAUREGUI [facility] Number: [id number] Current Date: 08/21/2012 16:42:29 Physicians Attending Provider: DANICA ENGLAND MD Primary Care Provider: DANICA ENGLAND MD Your Medications Here is a list of your medications. It is important to take your medications as directed. Use a pillbox or chart to help remind you to take your medications. Please let your doctor or nurse know if you have problems taking your medications. Medication/Strength Dose Route Frequency Indications/Special Instructions/Comments/Notes simvastatin (simvastatin 20 mg oral tablet) 20 mg Oral once a day (at bedtime) nicotine (nicotine 21 mg/24 hr transdermal film, ER) 1 patch(es) Topical once a day sertraline (sertraline 100 mg oral tablet) 100 mg Oral once a day buPROPion (buPROPion SR 200 mg/12 hour oral sustained release tablet) 200 mg Oral two times a day needs follow up omega-3 polyunsaturated fatty acids (Fish Oil) multivitamin (Multiple Vitamins oral tablet) Attention: If you have any medications at [...] No Appointments found Your Goals/Additional instructions: Source: [facility] POWERCHART Document Id: [id number] Miscellaneous - Danica England M.D. - 08/21/2012 4:42 PM CDT Ambulatory Depart Summary [address] [address] Visit Information Name: GEMA JAUREGUI [facility] Number: [id number] Visit Date: 08/21/2012 16:42:28 Attending Provider: DANICA ENGLAND MD Primary Care [...] medications. Medication/Strength Dose Route Frequency Indications/Special Instructions/Comments/Notes simvastatin (simvastatin 20 mg oral tablet) 20 mg Oral once a day (at bedtime) nicotine (nicotine 21 mg/24 hr transdermal film, ER) 1 patch(es) Topical once a day sertraline (sertraline 100 mg oral tablet) 100 mg Oral once a day buPROPion (buPROPion SR 200 mg/12 hour oral sustained release tablet) 200 mg Oral two times a day needs follow up omega-3 polyunsaturated fatty acids (Fish Oil) multivitamin (Multiple Vitamins oral tablet) Attention: If you have any medications at home that are not on this list, DO NOT take them until youcontact your provider for clarification. Additional Information: [facility] Document Id: [id number] Zach - Danica England M.D. - 08/21/2012 4:36 PM CDT PHQ-9 PHQ-9 Entered On: 08/21/2012 16:37 CDT Performed On: 08/21/2012 16:36 CDT by DANICA ENGLAND MD PHQ-9 Little [...] : Somewhat difficult DANICA ENGLAND MD - 08/21/2012 16:36 CDT [facility] Document Id: [id number] CDT!13 Miscellaneous - Dominick Bradley L.P.N. - 08/21/2012 2:26 PM CDT Adult Small Business Representative Intake/History Adult Small Business Representative Intake/History Entered On: 08/21/2012 14:29 CDT Performed On: 08/21/2012 14:26 CDT by DOMINICK BRADLEY LPN Intake Chief Complaint : med check Temperature Core : 36.4 DegC(Converted to: 97.5 DegF) (LOW) Peripheral Pulse Rate : 80 /min Respiratory Rate : 16 /min Systolic Blood Pressure : 110 mmHg Diastolic Blood Pressure : 68 mmHg NIBP Mean : 82 mmHg BP Location : Left upper extremity Blood Pressure Cuff Size : Regular Actual Weight : 74.7 kg(Converted to: 164 lb 11 oz) Dosing Weight Clinic : 74.7 kg DOMINICK BRADLEY LPN - 08/21/2012 14:26 CDT General Info Languages : Wolof DOMINICK BRADLEY LPN - 08/21/2012 14:26 CDT Subjective Pain Symptoms : Yes DOMINICK BRADLEY LPN - 08/21/2012 14:26 CDT Pain Pain Assessment Grid Pain 1 Location : Head DOMINICK BRADLEY LPN - 08/21/2012 14:26 CDT Dependent Habits Tobacco Use/Currently Using : Yes Exposure to Tobacco Smoke : Patient smokes Smoking Status : Current every day smoker DOMINICK BRADLEY LPN - 08/21/2012 14:26 CDT Source: [employer] Document Id: [id number] CDT!25 documented in this encounter Plan of Treatment Not on filedocumented as of this encounter Visit Diagnoses Not on filedocumented in this encounter Additional Health Concerns Assessment Noted Time PHQ-9 Depression Total Score: 8 08/21/2012 4:36 PM CDT documented as of this encounter
--- OUTSIDE RECORDS SUMMARY | 2021-10-26 16:15 | XMS_ITS | Encounter Summary ---
:1960 Author Organization [facility] Address [address] [place] [address] Care Team Providers Name Role Phone Unavailable Primary Care Provider Unavailable Encounter Details Date Type Department Care Team Description 01/08/2013 Hospital Encounter HX [facility] FAMILYPRA Ayden England M.D. [address] [place] [address] [phone] (Wo rk) Social History Tobacco [...] 12/11/2018 relatives? How often do you attend gnosticism or mandaeism services? Patien t refused 12/11/2018 Do you belong to any clubs or organizations such as Patient refused 12/11/2018 gnosticism groups, unions, fraternal or athletic groups, or [...] Reading Time Taken Comments Blood Pressure 110/68 01/08/2013 9:15 AM FURNITURE PACKER Pulse 76 01/08/2013 9:15 AM FURNITURE PACKER Temperature - - Respiratory Rate 12 01/08/2013 9:15 AM FURNITURE PACKER Oxygen Saturation - - Inhaled Oxygen Concentration - - Weight 62.9 kg (138 lb 10.7 oz) 01/08/2013 9:15 AM FURNITURE PACKER Height - - Body Mass Index 22.02 03/09/2011 8:52 AM FURNITURE PACKER documented in this encounter Progress Notes Danica England M.D. - 01/08/2013 9:06 AM CST [id number] CHIEF COMPLAINT/REASON FOR VISIT Followup. HISTORY OF PRESENT ILLNESS A 52-year-old female presents to clinic to follow up her dysthymia. Sertraline is up to 150 mg each day. Is feeling more tired, sleeping up to 10 hours per day but continues to feel tired. Initially was feeling quite good on the product, but over the last few weeks, the fatigue is significantly interrupting her activities of daily living. Her daughter is on this product and takes it in the afternoon and does well. She is taking her other medications as before. She had been planning to have her well-woman exam in [place] but has changed her mind and is interested in following through in [place]. Is fasting today. EMR reviewed. Please see the records. MEDICATIONS 1. Wellbutrin SR 200 mg orally 2 times a day. 2. Sertraline 100 mg 1.5 tablets orally each day, planned short trial at night. 3. Multivitamin 1 time a day. 4. Simvastatin 20 mg 1 time a day. 5. Nicotine patch to be started in the near future. PREVENTIVE SERVICES: Tobacco: Yes up to 1 pack per day, is somewhat interested in smoking cessation, has been on multipleproducts including the nicotine patch which she periodically utilizes. Mammogram: 02/23/2010 advised. Pap smear: 03/09/2011. Chlamydia: Non applicable secondary to stated age. Colon screening: Advised. EMR documentation completed. Depression: Yes. PHQ-9 score of 6. Asthma: No. Lipids: 01/08/2013. Tetanus: 2005. Pneumovax: Not applicable secondary to stated age. Influenza: Declined. DEXA scan: 02/23/2010. VITAL SIGNS WEIGHT: 62.9 but may be a typo and is actually 72.9. TEMP: 36.4. RESP RATE: 12. PULSE: 76. BLOOD PRESSURE: 110/68. PHYSICAL EXAMINATION Neatly dressed, well groomed. MENTAL: Speech is of normal rate and [...] are intact. Attention span and concentration are near baseline. Language and fund of knowledge suggest average intellect. Mood and affect reflect some evidence of depression, some anxiety, no agitation, no hypomania and no emotional lability. IMPRESSION/REPORT/PLAN 1. Dysthymia. 2. Hyperlipidemia. PLAN: Will check her lipid profile and AST today. Arrange for a well-woman exam in the near future. She will also schedule her mammogram for that day. She has had recent stable laboratory evaluation. She will trial taking her Zoloft in the evening. If this is successful, she will continue on this product and contact medical doctor for refills. If it is not successful, she will increase up to 200 mg each day. Signs and symptoms leading to urgent evaluation are reviewed. Spent the entire 20-minute visit in discussion of her multiple health issues. Danica England M.D./tonya Electronically Signed By: DANICA ENGLAND MD On: 01/08/2013 04:28 PM Modified by and Electronically Signed by: DANICA ENGLAND MD On: 01/08/2013 04:28 PM Source: [facility] MHSDOLBEYNONRADSYS Document Id: [id number] ITURE PACKER documented in this encounter Nursing Notes Geneva Lazcano - 01/09/2013 10:58 AM CST Colonoscopy Document Contains Addenda Addendum by GENEVA LAZCANO on 13 January 2013 9:19 FURNITURE PACKER [facility] [place] [address] Referral Authorization: Procedure or visit authorized for: Colonoscopy (CPT 09721) Referred by: Dr. England Contact Location: [facility] Contact Referred to: Dr. Mattson Contact Location: [facility] Contact Authorization Needed: yes or _ X _ no If yes, Referral valid: From: To: Number of visits approved for: Authorized by: Claudia Melendez Contact Number: Date Authorized: 01-13-2013 Reference Number: or __ X _ not applicable per Optometrist Assistant. Individual that received the Referral Authorization: LML Modified by and Electronically Signed by: GENEVA LAZCANO On: 01/13/2013 09:19 AM DATE: 01-09-2013 SCHEDULED FOR: Colonoscopy AT [facility] WITH DR. MATTSON DATE of Procedure: 01-14-13 TIME of Procedure: 1030 PER: DR. ENGLAND /DR. VASQUEZ ORDERS. Prep instructions have been sent to the patient. Patient advised to not take aspirin or ibuprofen for 10 days prior to the scheduled procedure. Insurance referral done XYes __No Copies of referring healthcare provider notes sent to [facility]. Electronically Signed By: GENEVA LAZCANO On: 01/09/2013 10:59 AM Source: [employer] Document Id: [id number] ITURE PACKER Oksana Bradley L.PBrigitteN. - 01/08/2013 2:29 PM CST Labs 01-08-13 Result card sent. Electronically Signed By: OKSANA BRADLEY LPN On: 01/08/2013 02:29 PM Source: [employer] Document Id: [id number] ITURE PACKER documented in this encounter Miscellaneous Notes Miscellaneous - Danica England M.D. - 01/08/2013 9:57 AM CST Ambulatory Patient Summary [address] [address] Visit Information Name: ANTONINA JAUREGUI [facility] Number: [id number] Current Date: 01/08/2013 09:57:54 Physicians Attending Provider: DANICA ENGLAND MD Primary [...] medications. Medication/Strength Dose Route Frequency Indications/Special Instructions/Comments/Notes nicotine (nicotine 21 mg/24 hr transdermal film, ER) 1 patch(es) Topical once a day simvastatin (simvastatin 20 mg oral tablet) 20 mg Oral once a day (at bedtime) needs fasting labs sertraline (sertraline 100 mg oral tablet) 150 mg Oral once a day needs follow up buPROPion (buPROPion SR 200 mg/12 hour oral sustained release tablet) 200 mg Oral two times a day Attention: If you have any [...] appointment detail needed. Your Goals/Additional instructions: Source: [facility] POWERCHART Document Id: [id number] ITURE PACKER Miscellaneous - Danica England M.D. - 01/08/2013 9:57 AM CST Ambulatory Depart Summary [address] [address] Visit Information Name: ANTONINA JAUREGUI [facility] Number: [id number] Visit Date: 01/08/2013 09:57:53 Attending Provider: DANICA ENGLAND MD Primary Care [...] medications. Medication/Strength Dose Route Frequency Indications/Special Instructions/Comments/Notes nicotine (nicotine 21 mg/24 hr transdermal film, ER) 1 patch(es) Topical once a day simvastatin (simvastatin 20 mg oral tablet) 20 mg Oral once a day (at bedtime) needs fasting labs sertraline (sertraline 100 mg oral tablet) 150 mg Oral once a day needs follow up buPROPion (buPROPion SR 200 mg/12 hour oral sustained release tablet) 200 mg Oral two times a day Attention: If you have any medications at home that are not on this list, DO NOT take them until youcontact your provider for clarification. Additional Information: Source: [facility] POWERCHART Document Id: [id number] ITURE PACKER Nazcellariana - Danica England M.D. - 01/08/2013 9:44 AM CST General Message Document Contains Addenda Addendum by GENEVA LAZCANO on 09 January 2013 11:00:44 FURNITURE PACKER From: GENEVA LAZCANO To: DANICA ENGLAND MD; Sent: 01/09/2013 11:00:44 FURNITURE PACKER Subject: RE: General Message Scheduled for 01-14-2013 at 1030. From: DANICA ENGLAND MD To: GENEVA LAZCANO; Sent: 01/08/2013 09:44:37 FURNITURE PACKER Subject: General Message Please schedule a screening colonoscopy for Ms. Antonina Jauregui. Thank you. Source: [facility] POWERCHART Document Id: [id number] Nazcellariana - Dancia England M.D. - 01/08/2013 9:31 AM CST PHQ-9 PHQ-9 Entered On: 01/08/2013 9:32 FURNITURE PACKER Performed On: 01/08/2013 9:31 FURNITURE PACKER by DANICA ENGLAND MD PHQ-9 Little interest or pleasure in doing things : Several days Feeling down, depressed, or hopeless : Not at all Trouble falling or staying asleep, or sleeping too much : More than half the days Feeling tired or having little energy : More than half the days Poor appetite or overeating : Several days Feeling bad about yourself or that you are a failure : Not at all Trouble concentrating on things : Not at all Moving or speaking slowly; restless or fidgety : Not at all Thoughts that you would be better off /hurting self : Not at all PHQ-9 Calculated Score : 6 Problems make work, home, or dealing with others : Somewhat difficult DANICA ENGLAND MD - 01/08/2013 9:31 FURNITURE PACKER [facility] Document Id: [id number] FURNITURE PACKER!13 ITURE PACKER Miscellaneous - Oksana Bradley L.P.N. - 01/08/2013 9:15 AM CST Adult Shellfish Shucker Intake/History Adult Shellfish Shucker Intake/History Entered On: 01/08/2013 9:17 FURNITURE PACKER Performed On: 01/08/2013 9:15 FURNITURE PACKER by OKSANA BRADLEY LPN Intake Chief Complaint : med check Temperature Core : 36.4 DegC(Converted to: 97.5 DegF) (LOW) Peripheral Pulse Rate : 76 /min Respiratory Rate : 12 /min (LOW) Systolic Blood Pressure : 110 mmHg Diastolic Blood Pressure : 68 mmHg NIBP Mean : 82 mmHg BP Location : Left upper extremity Blood Pressure Cuff Size : Regular Actual Weight : 62.9 kg(Converted to: 138 lb 11 oz) Dosing Weight Clinic : 62.9 kg OKSANA BRADLEY LPN - 01/08/2013 9:15 FURNITURE PACKER General Info Languages : Italian OKSANA BRADLEY LPN - 01/08/2013 9:15 FURNITURE PACKER Subjective Pain Symptoms : No OKSANA BRADLEY LPN - 01/08/2013 9:15 FURNITURE PACKER Dependent Habits Tobacco Use/Currently Using : Yes Exposure to Tobacco Smoke : Patient smokes Smoking Status : Current every day smoker OKSANA BRADLEY LPN - 01/08/2013 9:15 FURNITURE PACKER Source: [employer] Document Id: [id number] FURNITURE PACKER!21 ITURE PACKER Telephone Encounter - Danica England M.D. - 01/08/2013 12:00 AM CST [id number] Patient's lipid profile is obviously abnormal. Her liver function study is high. Will recommend discontinuing her current medication. She has an appointment coming up in the near future. Will discuss her various treatment options at that time. Will need to recheck her liver function studies prior to making any other intervention. Card is sent to patient in regards to this issue. Danica England M.D./jay Electronically Signed By: DANICA ENGLAND MD On: 01/09/2013 08:07 AM Modified by and Electronically Signed by: DANICA ENGLAND MD On: 01/09/2013 08:07 AM Source: [facility] MHSDOLBEYNONRADSYS Document Id: [id number] ITURE PACKER Miscellaneous - Meri Morataya L.P.N. - 01/07/2013 3:02 PM CST PHQ-9 From: MERI MORATAYA LPN To: OKSANA BRADLEY LPN; Sent: 01/07/2013 15:02:36 FURNITURE PACKER Show up: 05/02/2013 15:02:00 FURNITURE PACKER Subject: PHQ-9 Due Date/Time: 05/31/2013 15:02:00 CDT Please Remember to: PHQ-9 due within 30 days of 05/31/2013. Can be done by phone. If patient scores 9 or greater advise a follow up with provider. Please call and advise. PATIENT: ( x ) Call Patient ( ) Ask Patient to ( ) ( ) Call Relative ( ) Schedule Patient ( ) ( ) Call for Acoustical Logging Engineer ( ) Follow up on Results ( ) Other: PROVIDER: ( ) Call Physician ( ) Call Pharmacist ( ) Call Lab ( ) Other: Special Instructions: Comments: Source: [facility] POWERCHART Document Id: [id number] documented in this encounter Plan of Treatment Not on filedocumented as of this encounter Procedures Procedure Name Priority Date/Time Associated Comments Diagnosis LIPID PANEL, S Routine 01/08/2013 9:53 Results fo r this AM FURNITURE PACKER procedure are i n the results section. ASPARTATE Routine 01/08/2013 9:53 Results for this AMINOTRANSFERASE (AST), AM FURNITURE PACKER proc edure are in S/P the results section. documented in this encounter Results (ABNORMAL) AST (Aspartate Aminotransferase) (01/08/2013 9:53 AM FURNITURE PACKER) [facility] Method Time Signature Aspartate 62 (H) 8 - 43 POWERCHART Aminotransferase UNITL (AST), S Specimen (Source) Anatomical Collection Method Collection Time Re ceived Time Location / / Volume Laterality Blood 01/08/2013 9:53 AM FURNITURE PACKER Danica England M.D. LAB BLOOD ADD-ON Performing Organization Address City/State/ZIP Code Phon e Number POWERCHART (ABNORMAL) Lipid Panel (01/08/2013 9:53 AM FURNITURE PACKER) [facility] Method Time Signature Cholesterol, Total 269 (H) 0 - 200 POWERCHART MGDL HX HDL 52.0 40.0 - POWERCHART 60.0 MGDL Triglycerides 156 (H) 0 - 150 POWERCHART MGDL Calculated LDL 186 (H) 0 - 100 POWERCHART MGDL Specimen (Source) Anatomical Collection Method Collection Time Re ceived Time Location / / Volume Laterality Blood 01/08/2013 9:53 AM FURNITURE PACKER Danica England M.D. LAB BLOOD ADD-ON Performing Organization Address City/State/ZIP Code Phon e Number POWERCHART documented in this encounter Visit Diagnoses Not on filedocumented in this encounter Additional Health Concerns Assessment Noted Time PHQ-9 Depression Total Score: 6 01/08/2013 9:31 AM FURNITURE PACKER documented as of this encounter
--- OUTSIDE RECORDS SUMMARY | 2021-10-26 16:15 | XMS_ITS | Encounter Summary ---
:1960 Author Organization [facility] Address [address] [place] [address] Care Team Providers Name Role Phone Unavailable Primary Care Provider Unavailable Encounter Details Date Type Department Care Team Description 07/07/2010 Hospital Encounter HX [facility] FBHB Shelley Johnson M.D. [address] [phone] (Wo rk) Social History Tobacco Use [...] How often do you attend worship or jehovah's witness services? Patien t refused 12/11/2018 Do you [...] encounter Nursing Notes Dominick Bradley, L.P.N. - 07/13/2010 11:04 AM CDT Echo 07-07-10 Result card sent. Electronically Signed By: DOMINICK BRADLEY LPN On: 07/13/2010 11:04 am Source: [facility] POWERCHART Document Id: [id number] documented in this encounter Plan of Treatment Not on filedocumented as of this encounter Visit Diagnoses Not on filedocumented in this encounter Additional Health Concerns Assessment Noted Time PHQ-9 Depression Total Score: 3 02/23/2010 11:56 AM CS T documented as of this encounter
--- OUTSIDE RECORDS SUMMARY | 2021-10-26 16:15 | XMS_ITS | Encounter Summary ---
:1960 Author Organization [facility] Address [address] [place] [address] Care Team Providers Name Role Phone Unavailable Primary Care Provider Unavailable Encounter Details Date Type Department Care Team Description 02/23/[address] [facility] FBHB BONE DENS Ayden England M.D. [address] [place] [phone] (Wo rk) Social History Tobacco [...] 12/11/2018 relatives? How often do you attend mosque or zoroastrianism services? Patien t refused 12/11/2018 Do you belong to any clubs or organizations such as Patient refused 12/11/2018 mosque groups, unions, fraternal or athletic groups, or [...]
--- OUTSIDE RECORDS SUMMARY | 2021-10-26 16:15 | XMS_ITS | Encounter Summary ---
:1960 Author Organization [facility] Address [address] [place] [address] Care Team Providers Name Role Phone Unavailable Primary Care Provider Unavailable Encounter Details Date Type Department Care Team Description 06/23/2008 Hospital Encounter HX NO MAPPING Danica England M.D. [address] [place] [address] (Wo rk) Social History Tobacco Use [...] 12/11/2018 relatives? How often do you attend catholic or denominational services? Patien t refused 12/11/2018 Do you belong to any clubs or organizations such as Patient refused 12/11/2018 catholic groups, unions, fraternal or athletic groups, [...] Priority Date/Time Associated Diagnosis Comme nts DX FINGERS LEFT 2 Routine 06/23/2008 10:16 AM Res ults for this VIEWS CDT procedure are i n the results section. documented in this encounter Results DX Fingers Left 2 Views (06/23/2008 10:16 AM CDT) Anatomical Region Laterality Modality Upper Extremity, Fingers Left Radiographic Im aging Specimen (Source) Anatomical Collection Method Collection Time Re ceived Time Location / / Volume Laterality 06/23/2008 10:16 AM CDT Impressions 06/23/2008 10:16 AM CDT Normal examination of the left thumb. Narrative 06/23/2008 10:16 AM CDT Originally Signed By UNKNOWN, PERSONNEL Reason for exam: THUMB PAIN COMPARISON: No Prior ?? TECHNIQUE: Frontal, oblique and lateral views of the left from were obtained. ?? FINDINGS: ?? There is no evidence of fracture, disloc ation or acute osseous abnormality. No focal osseous erosion or periosteal reaction is identified. There is normal osseous mine ralization. ??No significant soft tissue swelling is identified. ? Procedure Note Provider, Eva Mcneill - 08/01/2016F ormatting of this note might be different from the original. Originally Signed By UNKNOWN, PERSONNEL Reason for exam: THUMB PAIN COMPARISON: No Prior TECHNIQUE: Frontal, oblique and lateral views of the left from were obtained. FINDINGS: There is no evidence of fracture, disloc ation or acute osseous abnormality. No focal osseous erosion or periosteal reaction is identified. There is normal osseous mine ralization. No significant soft tissue swelling is identified. IMPRESSION: Normal examination of the left thumb. Historical Provider [facility]ON CELESTE documented in this encounter Visit Diagnoses Not on filedocumented in this encounter Additional Health Concerns Assessment Noted Time PHQ-9 Depression Total Score: 9 06/23/2008 11:15 AM CD T documented as of this encounter
--- OUTSIDE RECORDS SUMMARY | 2021-10-26 16:15 | XMS_ITS | Encounter Summary ---
:1960 Author Organization [facility] Address [address] [place] [address] Care Team Providers Name Role Phone Unavailable Primary Care Provider Unavailable Encounter Details Date Type Department Care Team Description 05/31/2012 Hospital Encounter HX [facility] Ayden England M.D. [address] [place] [address] [phone] (Wo rk) Social History Tobacco [...] How often do you attend restorationist or latter day services? 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 - 05/31/2012 4:03 PM CDT [id number] CHIEF COMPLAINT/REASON FOR VISIT Medication check HISTORY OF PRESENT ILLNESS 51-year-old female presents to clinic for medication check. Is finding that her citalopram is not ashelpful as it had been in the past. Continues to be under increased psychosocial stress. Continues to have decreased energy. Has had a change of her bowel regimen. Is planning to see a provider [facility] her daughters [facility] in [place] and is wondering if they will arrange for colonoscopy. She was under the impression that the [facility] [employer] [employer] [facility] would be able to provide this service. She has been taking her Wellbutrin for many years which has been helpful in the past in cutting back on hersmoking habit and she is almost up to 3/4 of a pack per day but is not every day. Has not been exercising this winter. Is expecting a grandchild any day. EMR reviewed. Please see the record. CURRENT MEDICATIONS 1. Wellbutrin sustained release 200 mg orally twice daily 2. Celexa to be weaned over the next week or two 3. Sertraline 50 mg 1/2 tablet times 6 days increasing to 1 tablet daily after her Celexa wean has been completed 4. Multivitamin daily 5. Fish oil daily ALLERGIES Codeine SYSTEMS REVIEW Constitutional: No fevers, chills, night sweats, slow weight gain over the years. Eyes: No difficulties with blurred vision. Has new glasses since 2010. ENT: No hearing loss or oral problems. Last dental examination 05/2010 when she received her denturesupper and lower plates. CV: No chest pain, palpitations, edema or true claudication. Would be happy to come in fasting on the . Respiratory: No cough, wheeze, hemoptysis or shortness of breath. GI: No abdominal pain, hematemesis, melena, dysphagia or change in irregular bowel habits frequentlywill have two times per month when she has very crampy painful stools to the point she is crying sitting on the toilet with loose stools for about half hour. [facility] Please see above. : No nocturia, hematuria, incontinence or dysuria. See above. Musculoskeletal: No acute joint pain, swelling, stiffness or obvious deformities. Did have an ankle injury which responded to physical therapy and is currently doing well. Integumentary: No rashes or pruritus. See above. Neuro: No seizures or syncopal events. Psychiatric: See the chart. Endocrine: No history of diabetes or thyroid problems. Hematologic/lymphatic: No acute history of anemia or bleeding although she did have some with her pregnancies. Allergic/immunologic: Please see the chart. PAST MEDICAL/SURGICAL HISTORY Surgeries Left knee surgery with residual episodic pain 1976. Other hospitalizations vaginal delivery. Other injuries See above. Other major illnesses 1. Premature menopause at age 33. 2. Episodic GERD currently stable. 3. Osteopenia confirmed on DEXA scan . 4. Anxiety with depressive features. 5. Hyperlipidemia. 6. Overweight. 7. Restless legs, currently stable. 8. Periodontitis, resolved with placement of dentures. 9. Nicotine dependence. 10. Stable echocardiogram 07/07/2010 obtained secondary to atypical chest pain with ejection fractionof 65% PREVENTIVE SERVICES Tobacco use: Yes up to 3/4 pack per day with no plans for cessation at the present time. Mammogram: 02/23/2010 advised on numerous occasions and is planning to go to [facility] [place] in the near future. Pap smear: 03/09/2011. Chlamydia: Non applicable secondary to stated age. Colon screening: Advised see above. Depression: Yes. PHQ-9 score of 10. Asthma: No Lipids: 03/09/2011 Advised Tdap booster: 2006 Pneumovax: Non applicable secondary to stated age. Influenza: Nonapplicable secondary to time of year and patient currently declines. DEXA scan: 02/23/2010 SOCIAL HISTORY Alcohol: None. Caffeine: A cup of tea 3 to 4 times per week but occasionally daily, soda couple times per week. FAMILY HISTORY Mother has diabetes mellitus and [...] disease. Three daughters with depression. VITAL SIGNS WEIGHT: 76.5 TEMPERATURE: 36.6 RESPIRATORY RATE: 12 PULSE: 72 BLOOD PRESSURE: 98/62 PHYSICAL EXAM GENERAL: Neatly dressed. Well groomed. SKIN: Warm and dry. HEAD: No evidence of trauma, tenderness or masses. EYES: PERRL. Full EOM. Funduscopic exam grossly normal. ENT: Ears: Tympanic membranes are frias. Subjectively intact hearing. Nose: Mucosal membranes pink and moist. Septum is midline. Oral: No exudates. Good fitting dentures. No pharyngeal erythema. Neck: Supple. Trachea midline. PERIPHERAL VESSELS: Positive radial ulnar femoral posterior tib dorsalis pulses. LYMPH NODES: No cervical or femoral adenopathy. THYROID: No thyroid masses, tenderness or enlargement. HEART: Regular rate and rhythm. No clicks, rubs or murmurs. LUNGS: Clear to auscultation. No palpable chest wall masses. ABDOMEN: Soft, nontender, bowel sounds present, no organomegaly. EXTREMITIES: No ankle edema. GAIT: Smooth easy. MENTAL: Speech is of normal rate and volume, articulate, coherent, spontaneous with no notation of abnormalities. Thought processes reveal intact abstract reasoning and computation. No loose tangentialcircumstantial thoughts. No hallucinations. No delusions. No preoccupation with violence. No homicidal or suicidal ideations. Marked psychosocial somatic ruminations. Gaining insight into situation andillness process. Oriented to person, place and time. Recent and remote memory are intact. Attention span and concentration are decreased. Language and fund of knowledge suggest average intellect. Mood and affect reflect some evidence of depression, some anxiety, no agitation, no hypomania and some emotional lability. NEURO: Reflexes 2+ triceps, biceps, knees. IMPRESSION/REPORT/PLAN 1. Abdominal pain with changed bowel habit 2. Dysthymic disorder 3. Hyperlipidemia 4. Osteopenia 5. Overweight 6. Tobacco dependence PLAN: Will recommend checking CBC, basic metabolic profile, AST, lipid profile, urinalysis, on Sunday the . Follow up with her [facility] as planned. If they are unable to arrange colonoscopy for her [facility] which would be more convenient as that is where she lives, she will contact MD who will arrange evaluation with Dr. Marquis, Surgeon. Signs and symptoms to lead to urgent evaluation are reviewed. Risk and benefits of medications discussed. All questions answered. Follow up is planned for 1 month. She is comfortable with this plan. Danica England M.D./alexandria Electronically Signed By: DANICA ENGLAND MD On: 06/05/2012 03:06 PM Modified by and Electronically Signed by: DANICA ENGLAND MD On: 06/05/2012 03:06 PM Source: [facility] MHSDOLBEYNONRADSYS Document Id: [id number] documented in this encounter Miscellaneous Notes Miscellaneous - Heladio Morataya L.P.N. - 06/13/2012 8:21 AM CDT PHQ-9 From: HELADIO MORATAYA LPN To: DOMINICK BRADLEY LPN; Sent: 06/13/2012 08:21:49 CDT Show up: 11/01/2012 08:21:00 CDT Subject: PHQ-9 Due Date/Time: 11/30/2012 08:21:00 CDT Please Remember to: PHQ-9 due within 30 days of 11/30/2012. Can be done by phone. If patient scores 9or greater advise a follow up with provider. Please call and advise. PATIENT: ( x ) Call Patient ( ) Ask Patient to ( ) ( ) Call Relative ( ) Schedule Patient ( ) ( ) Call for Jira Developer ( ) Follow up on Results ( ) Other: PROVIDER: ( ) Call Physician ( ) Call Pharmacist ( ) Call Lab ( ) Other: Special Instructions: Comments: Source: [facility] POWERCHART Document Id: [id number] Electronically signed by Cayetano [facility] Pediatric Licensed Practical Nurse [id number] at 07/26/2016 6:15 AM CDT Telephone Encounter - Danica England M.D. - 06/03/2012 12:00 AM CDT [id number] Patient's cholesterol is elevated. Would recommend following up in the clinic to discuss a cholesterol lowering medication. Other laboratories are fairly stable apart from urine which appears to be consistent with the above history. Card is sent to patient in regards to this issue. Danica England M.D./clf Electronically Signed By: DANICA ENGLAND MD On: 06/05/2012 01:42 PM Modified by and Electronically Signed by: DANICA ENGLAND MD On: 06/05/2012 01:42 PM Source: [facility] MHSDOLBEYNONRADSYS Document Id: [id number] Miscellaneous - Danica England M.D. - 05/31/2012 4:58 PM CDT Ambulatory Depart Summary [address] [place] [address] Visit Information Name: GEMA JAUREGUI [facility] Number: [id number] Visit Date: 05/31/2012 16:58:58 Attending Provider: DANICA ENGLAND MD Primary Care [...] medications. Medication/Strength Dose Route Frequency Indications/Special Instructions/Comments sertraline (sertraline 50 mg oral tablet) See Instructions 0.5 tab(s) PO Daily for 6 days then 1 PO daily buPROPion (buPROPion SR 200 mg/12 hour oral sustained release tablet) 200 mg Oral two times a day omega-3 polyunsaturated fatty acids (Fish Oil) multivitamin (Multiple Vitamins oral tablet) Attention: If you have any medications at home that are not on this list, DO NOT take them until youcontact your provider for clarification. Additional Information: Source: [facility] POWERCHART Document Id: [id number] Miscellaneous - Danica England M.D. - 05/31/2012 4:58 PM CDT Ambulatory Patient Summary [address] [place] [address] Visit Information Name: GEMA JAUREGUI [facility] Number: [id number] Current Date: 05/31/2012 16:58:59 Physicians Attending Provider: DANICA ENGLAND MD Primary Care Provider: DANICA ENGLAND MD Your Medications Here is a list of your medications. It is important to take your medications as directed. Use a pillbox or chart to help remind you to take your medications. Please let your doctor or nurse know if you have problems taking your medications. Medication/Strength Dose Route Frequency Indications/Special Instructions/Comments sertraline (sertraline 50 mg oral tablet) See Instructions 0.5 tab(s) PO Daily for 6 days then 1 PO daily buPROPion (buPROPion SR 200 mg/12 hour oral [...] Upcoming Appointments Date Time Location Reason Provider 06/03/2012 09:15 [facility] Lab Your Goals/Additional instructions: Source: [facility] POWERCHART Document Id: [id number] Miscellaneous - Danica England M.D. - 05/31/2012 4:49 PM CDT PHQ-9 PHQ-9 Entered On: 05/31/2012 16:49 CDT Performed On: 05/31/2012 16:49 CDT by DANICA ENGLAND MD PHQ-9 Little interest or pleasure in doing things : Several days Feeling down, depressed, or hopeless : Several days Trouble falling or staying asleep, or sleeping too much : Several days Feeling tired or having little energy : Several days Poor appetite or overeating : Nearly every day Feeling bad about yourself or that you are a failure : Several days Trouble concentrating on things : Several days Moving or speaking slowly; restless or fidgety : Several days Thoughts that you would be better off /hurting self : Not at all PHQ-9 Calculated Score : 10 Problems make work, home, or dealing with others : Somewhat difficult DANICA ENGLAND MD - 05/31/2012 16:49 CDT Source: [email or web address] Document Id: [id number] Miscellaneous - Dominick Bradley L.P.N. - 05/31/2012 4:12 PM CDT Adult Director Clinical Data Intake/History Adult Director Clinical Data Intake/History Entered On: 05/31/2012 16:15 CDT Performed On: 05/31/2012 16:12 CDT by DOMINICK BRADLEY LPN Intake Chief Complaint : med check Temperature Core : 36.6DegC(Converted to: 97.9DegF) Peripheral Pulse Rate : 72/min Respiratory Rate : 12/min (LOW) Systolic Blood Pressure : 98mmHg Diastolic Blood Pressure : 62mmHg NIBP Mean : 74mmHg BP Location : Left upper extremity Blood Pressure Cuff Size : Regular Actual Weight : 76.5kg(Converted to: 168lb 10oz) Dosing Weight Clinic : 76.50kg DOMINICK BRADLEY LPN - 05/31/2012 16:12 CDT General Info Languages : Syriac DOMINICK BRADLEY LPN - 05/31/2012 16:12 CDT Subjective Pain Symptoms : No DOMINICK BRADLEY LPN - 05/31/2012 16:12 CDT Dependent Habits Tobacco Use/Currently Using : Yes Exposure to Tobacco Smoke : Patient smokes Smoking Status : Current every day smoker DOMINICK BRADLEY LPN - 05/31/2012 16:12 CDT Allergy Allergies (Active) codeine Estimated Onset Date: Unspecified ; Created By: DANICA ENGLAND MD; Reaction Status: Active ; Category: Drug ; Substance: codeine ; Type: Allergy ; Updated By: DANICA ENGLAND MD; Reviewed Date: 05/31/2012 16:12 CDT Source: [facility] Document Id: [id number] documented in this encounter Plan of Treatment Not on filedocumented as of this encounter Visit Diagnoses Not on filedocumented in this encounter Additional Health Concerns Assessment Noted Time PHQ-9 Depression Total Score: 10 05/31/2012 4:49 PM CD T documented as of this encounter
--- OUTSIDE RECORDS SUMMARY | 2021-10-26 16:15 | XMS_ITS | Encounter Summary ---
:1960 Author Organization [facility] Address [address] [place] [address] Care Team Providers Name Role Phone Unavailable Primary Care Provider Unavailable Encounter Details Date Type Department Care Team Description 06/03/2012 Hospital Encounter HX [facility] Ayden England M.D. [address] [place] [address] 021 (Wo rk) Social History Tobacco Use [...] 12/11/2018 relatives? How often do you attend spiritism or restoration services? Patien t refused 12/11/2018 Do you belong to any clubs or organizations such as Patient refused 12/11/2018 spiritism groups, unions, fraternal or athletic groups, or [...] encounter Nursing Notes Dominick Bradley, L.P.N. - 06/05/2012 3:20 PM CDT Labs 06-03-12 Result card sent. Electronically Signed By: DOMINICK BRADLEY LPN On: 06/05/2012 03:20 PM Source: [facility] POWERCHART Document Id: [id number] documented in this encounter Plan of Treatment Not on filedocumented as of this encounter Procedures Procedure Name Priority Date/Time Associated Comments Diagnosis DIPSTICK, U Routine 06/03/2012 9:40 Results for this AM CDT procedure are i n the results section. LIPID PANEL, S Routine 06/03/2012 9:37 Results fo r this AM CDT procedure are i n the results section. AUTOMATED DIFFERENTIAL, Routine 06/03/2012 9:37 R esults for this B AM CDT procedure are i n the results section. CBC WITH DIFFERENTIAL, B Routine 06/03/2012 9:37 Results for this AM CDT procedure are i n the results section. ASPARTATE Routine 06/03/2012 9:37 Results for this AMINOTRANSFERASE (AST), AM CDT proc edure are in S/P the results section. BASIC METABOLIC PANEL, Routine 06/03/2012 9:37 Re sults for this S/P AM CDT procedure are i n the results section. documented in this encounter Results (ABNORMAL) Dipstick, Urine (06/03/2012 9:40 AM CDT) [facility] Time Signature Source Clean Void POWERCHART Urine HXUr Color Yellow POWERCHART Appearance Slightly POWERCHART Cloudy (A) Glucose Negative Negative POWERCHART HXBILIRUBIN Trace (A) Negative POWERCHART Ketones, QL(U) Trace (A) Negative POWERCHART Specific 1.025 (A) 1.020 POWERCHART [place], POCT, U HXBLOOD Trace Intact Negative POWERCHART (A) pH, POCT, Urine 6.0 5.0 - 8.0 POWERCHART Protein, Ur, Dip Trace (A) Negative POWERCHART Urobilinogen 1.0 0.2 - 1.0 POWERCHART HXNITRITE Negative Negative POWERCHART Leukocyte Trace (A) Negative POWERCHART Esterase Specimen (Source) Anatomical Collection Method Collection Time Re ceived Time Location / / Volume Laterality Urine 06/03/2012 9:40 AM CDT Danica England M.D. LAB URINE ORDERABLES Performing Organization Address City/State/ZIP Code Phon e Number POWERCHART Automated Differential (06/03/2012 9:37 AM CDT) athologist Signature Neutro % 50.2 34.0 - 71.1 POWERCHART Lymphocytes % 39.6 19.3 - 51.7 POWERCHART HX [place] % 8.4 4.7 - 12.5 POWERCHART HX Eos % 1.5 0.7 - 5.8 POWERCHART HX Baso % 0.3 0.1 - 1.2 POWERCHART Specimen Anatomical Collection Method Collection Time Receive d Time (Source) Location / / Volume Laterality Blood 06/03/2012 9:37 AM 3 9:37 CDT AM CDT Danica England M.D. LAB BLOOD ADD-ON Performing Organization Address City/State/ZIP Code Phon e Number POWERCHART CBC with Differential (06/03/2012 9:37 AM CDT) P athologist Signature Leukocytes 7.1 3.4 - 10.5 POWERCHART X109L Erythrocytes 4.31 3.90 - POWERCHART 5.03 [id number] Hemoglobin 13.4 12.0 - POWERCHART 15.5 GDL Hematocrit 39.2 34.9 - POWERCHART 44.5 MCV 91.0 82.0 - POWERCHART 98.0 FL Platelet Count 246 150 - 450 POWERCHART X109L HX RDW 13.6 11.9 - POWERCHART 15.5 HXDifferential? Auto POWERCHART Specimen (Source) Anatomical Collection Method Collection Time Re ceived Time Location / / Volume Laterality Blood 06/03/2012 9:37 AM CDT Danica England M.D. LAB BLOOD ADD-ON Performing Organization Address City/State/ZIP Code Phon e Number POWERCHART (ABNORMAL) Lipid Panel (06/03/2012 9:37 AM CDT) [facility] gist Method Time Signature Cholesterol, Total 300 (H) 0 - 200 POWERCHART MGDL HX HDL 45.0 40.0 - POWERCHART 60.0 MGDL Triglycerides 228 (H) 0 - 150 POWERCHART MGDL Calculated LDL 209 (H) 0 - 100 POWERCHART MGDL Specimen (Source) Anatomical Collection Method Collection Time Re ceived Time Location / / Volume Laterality Blood 06/03/2012 9:37 AM CDT Danica England M.D. LAB BLOOD ADD-ON Performing Organization Address City/State/ZIP Code Phon e Number POWERCHART AST (Aspartate Aminotransferase) (06/03/2012 9:37 AM CDT) [facility] gist Method Time Signature Aspartate 32 8 - 43 POWERCHART Aminotransferase UNITL (AST), S Specimen (Source) Anatomical Collection Method Collection Time Re ceived Time Location / / Volume Laterality Blood 06/03/2012 9:37 AM CDT Danica England M.D. LAB BLOOD ADD-ON Performing Organization Address City/State/ZIP Code Phon e Number POWERCHART (ABNORMAL) BMP (Basic Metabolic Panel) (06/03/2012 9:37 AM CDT) P athologist Signature BUN (Blood Urea 12 6 - 20 POWERCHART Nitrogen), S MGDL Creatinine 0.7 0.7 - 1.2 POWERCHART MGDL Glucose 99 POWERCHART Potassium, S 4.4 3.5 - 4.8 POWERCHART MMOLL Sodium, S 144 135 - 145 POWERCHART MMOLL Chloride, S 105 100 - 108 POWERCHART MMOLL CO2 Total 30 (H) 22 - 29 POWERCHART MMOLL Calcium, Total, 9.4 8.5 - 10.5 POWERCHART S MGDL HXeGFR (MDRD) >60 MLMIN POWERCHART eGFR >60 MLMIN POWERCHART Black/ Specimen (Source) Anatomical Collection Method Collection Time Re ceived Time Location / / Volume Laterality Blood 06/03/2012 9:37 AM CDT Danica England M.D. LAB BLOOD ADD-ON Performing Organization Address City/State/ZIP Code Phon e Number POWERCHART documented in this encounter Visit Diagnoses Not on filedocumented in this encounter Additional Health Concerns Assessment Noted Time PHQ-9 Depression Total Score: 10 05/31/2012 4:49 PM CD T documented as of this encounter
--- OUTSIDE RECORDS SUMMARY | 2021-10-26 16:15 | XMS_ITS | Encounter Summary ---
:1960 Author Organization [facility] Address [address] [place] [address] Care Team Providers Name Role Phone Unavailable Primary Care Provider Unavailable Encounter Details Date Type Department Care Team Description 02/23/2010 Hospital Encounter [facility] Kim Lyons M.D. [address] [place] [address] 021 (Wo rk) Social History Tobacco Use [...] How often do you attend orthodox or gnosticism services? Patien t refused 12/11/2018 [...] Diagnosis Comme nts BI BREAST SCREENING Routine 02/23/2010 10:46 AM R esults for this BILATERAL COMPLAINT INVESTIGATOR procedure are i n the results section. documented in this encounter Results BI Breast Screening Bilateral (02/23/2010 10:46 AM COMPLAINT INVESTIGATOR) Anatomical Region Laterality Modality Breast Bilateral Mammography Specimen (Source) Anatomical Collection Method Collection Time Re ceived Time Location / / Volume Laterality 02/23/2010 10:46 AM COMPLAINT INVESTIGATOR Addenda Addendum by ProviderCharito M.D. o n 02/23/2010 10:46 AM COMPLAINT INVESTIGATOR RAD^^^OW MA Mammo Screening w ??CADD 02/23/2010 10:46:00 Addendum by Charito Campa M.D. o n 02/23/2010 10:32 AM COMPLAINT INVESTIGATOR RAD^^^MA MA MAMMO SCREENING W CADD 02/23/2010 10:32:00 Impressions 02/23/2010 12:58 PM COMPLAINT INVESTIGATOR Negative mammogram. ??Recommend annual screening mammography. ?? BREAST MAMMOGRAPHY - GENERAL OBSERVATION S: ??The false negative rate for mammography is 15-20%. ??It cannot b e used, therefore, to replace the regular physical examination. ??A no rmal or noncontributory mammogram report also should not deter t he aggressive further workup of any suspected palpable masses. ?? ACR Code 1. Narrative 02/23/2010 12:58 PM COMPLAINT INVESTIGATOR COMPARISON: 04/30/2007, 11/24/2008. ?? FINDINGS: Breast tissue demonstrates sca ttered fibroglandular tissue. ?? No suspicious mass, clustered microcalci fication, architectural distortion. ?? Computer aided detection utilized during interpretation of this exam. ?? Procedure Note Deandre Harrell M.D. / Provider, His heaven M.D. - 2016 COMPARISON: 04/30/2007, 11/24/2008. FINDINGS: Breast tissue demonstrates sca ttered fibroglandular tissue. No suspicious mass, clustered microcalci fication, architectural distortion. Computer aided detection utilized during interpretation of this exam. IMPRESSION: Negative mammogram. Recommen d annual screening mammography. BREAST MAMMOGRAPHY - GENERAL OBSERVATION S: The false negative rate for mammography is 15-20%. It cannot be used, therefore, to replace the regular physical examination. A norm al or noncontributory mammogram report also should not deter t he aggressive further workup of any suspected palpable masses. ACR Code 1. Claribel Kwon R.T.(R), R.T.(R)(M) IMG BI PROCEDURES documented in this encounter Visit Diagnoses Not on filedocumented in this encounter Additional Health Concerns Assessment Noted Time PHQ-9 Depression Total Score: 3 02/23/2010 11:56 AM CS T documented as of this encounter
--- OUTSIDE RECORDS SUMMARY | 2021-10-26 16:15 | XMS_ITS | Encounter Summary ---
:1960 Author Organization [facility] Address [address] [place] [address] Care Team Providers Name Role Phone Unavailable Primary Care Provider Unavailable Encounter Details Date Type Department Care Team Description 02/23/2010 Hospital Encounter HX [facility] Ayden England M.D. [address] [place] [address] [phone] (Wo rk) Social History Tobacco [...] How often do you attend yazidi or denominational services? Patien t refused 12/11/2018 [...] on file documented as of this encounter H&P Notes Danica England M.D. - 02/23/2010 12:00 AM CST [id number] IMPRESSION/REPORT/PLAN 1. Annual exam 2. Periodontitis. 3. Dysthymic disorder. 4. Hyperlipidemia. 5. Osteopenia. 6. Overweight. 7. Episodic knee pain. 8. History of nicotine dependence. 9. Restless leg syndrome. 10. History of premature menopause. PLAN 1. Reviewed exercise, cholesterol, diet/weight loss, calcium intake, alcohol use, immunizations, tobacco use, caffeine use, self-breast exams, mammography, colonic studies including colonoscopy or hemoccult testing, hormone replacement therapy as appropriate, seatbelt use, back care, depression, eye exams and other issues. Following up if any change occurs or as noted. 2. Will check laboratory evaluation with CBC, basic metabolic profile, TSH, AST, urinalysis following up accordingly. Follow up ThinPrep accordingly. Will arrange for a mammogram, DEXA scan in the near future. Will arrange for a fasting lipid profile in the near future. Signs and symptoms to lead to a more urgent evaluation are reviewed. Will be happy to give refills of her medication if her laboratory evaluation is stable. Signs and symptoms to lead to a more urgent evaluation are reviewed. Otherwise as noted. CHIEF COMPLAINT/REASON FOR VISIT Annual exam. HISTORY OF PRESENT ILLNESS This 49-year-old female presents to the clinic for annual evaluation. [place] a sensation that her legs move at night. If she takes a couple of Motrin before this occurs or at the time it occurs she is able to get back to sleep. Also notes a bit of stiffness in her hands right greater than left. She attributes this to her arthritis. Has some discomfort in her left leg feeling like her knee is not moving as it should. Did have surgery when she was a teenager and these symptoms began after she had a large amount of dental work preparing for dentures to be placed in the next couple of months. She has had some shortness of breath with exertion after she walks up a couple of flights of stairs but no palpitations. She has occasional hot flashes since discontinuing her hormones. She has gained some weight after she quit smoking. Does not that she eats a fair amount of sweets which was not her former habit in the past. She is under increased psychosocial stress and is going to marriage counseling. Clinic Face Sheet/Medication Sheet are reviewed. Please see the chart. CURRENT MEDICATIONS Post-visit Medication Reconciliation Wellbutrin sustained release 150 mg orally twice a day. Celexa 40 mg orally each day. Calcium with vitamin D twice a day. Multiple vitamin each day Fish oil each day. ALLERGIES Codeine. SYSTEMS REVIEW Constitutional: Weight gain over the last couple of years. No fevers, chills or night sweats. No change in her energy. Eyes: No blurred or double vision and no eye pain. Last ophthalmic exam 2007. Has glasses but she is not wearing them. ENT: No hearing loss, no tinnitus, no ear pain, no dizziness, no nasal congestion, no sore throat and no hoarseness. See above. CV: No palpitations, no ankle edema, no true claudication and no chest pain. Respiratory: No cough, no wheezing, no hemoptysis. See above. GI: No abdominal pain and no heartburn. No problems with dysphagia, hematemesis or change in daily bowel regimen. No hematochezia and no problems with hemorrhoids. : No pain with urination. No urinary frequency. No vaginal bleeding or spotting. No vaginal discharge. No history of abnormal Pap smears. No concerns regarding sexually transmitted diseases. See the chart. Musculoskeletal: No back, neck or joint pain apart from that described above. No swelling or stiffness. No myalgias or weakness. Integumentary: No changes in skin lesions, hair or nails. Does self breast exams. Wears sunscreen on occasion. Neuro: No history of syncopal events or [...] currently stable. Osteopenia confirmed on DEXA scan . Anxiety with depressive features. Hyperlipidemia. Overweight. Restless legs. Periodontitis. History of nicotine dependence. PREVENTIVE SERVICES Tobacco use: Quit 08-31-2008 Mammogram: 11-24-2008, planned for 02-28-2010 Pap smear: 02-23-2010 Chlamydia: Non applicable secondary to stated age. Colon screening: Non applicable secondary to stated age. Depression: Yes PHQ-9 score 3. Asthma: No Lipids: 11-24-2008 Tdap booster: 2006 Pneumovax: Non applicable secondary to stated age. Influenza: Declines. DEXA scan: , advised. SOCIAL HISTORY Alcohol: None. Other social drugs: None. Caffeine use: A cup or two of tea each day. Soda two to three times a week. Seatbelt use: Wears. Diet: Tries to follow a healthy diet. See above. Last breast exam: 2008. Calcium intake: Adequate. Exercises with walking a couple of blocks each day. FAMILY HISTORY Mother has diabetes mellitus and [...] Three daughters with depression. VITAL SIGNS DATE/TIME 02-23-2010 HEIGHT 165 cm WEIGHT 74.6 kg TEMPERATURE 36.6 degreesC RESP RATE 16 / min PULSE 80 SYSTOLIC 116 DIASTOLIC 72 PHYSICAL EXAM AREA EXAM TEXT GENERAL Neatly dressed and well groomed and in no apparent distress. SKIN Solar changes in a sun wear distribution. No palpable masses. HEAD No trauma, tenderness or masses. EYES Conjunctiva clear. PERRL. Full EOM. Funduscopic exam grossly normal. ENT ENT: External ears and nose without gross abnormalities. Tympanic membranes are frias. Subjectively intact hearing. Nasal mucosa membranes pink and moist. Septum is midline. Oral: No exudates. Teeth in poor condition with marked evidence of periodontal disease and missing teeth. No pharyngeal erythema or exudates. Neck supple. [...] free from lesions. Supple vaginal vault. Multiparous cervix. Pap smear with spatula and cytobrush obtained with no friability. Uterus freely mobile, no nodularity. Adnexal region free from nodules and nontender. No tenderness with either speculum or bimanual exam. SPINE Range of motion consistent with stated age. No bony abnormalities. JOINTS Range of motion consistent with stated age. No bony abnormalities. EXTREMITIES Nails and digits in good condition. Range of motion of head, neck, ribs, right and left upper extremity, right and left lower extremity consistent with the patient's stated age. GAIT Smooth easy. MENTAL Oriented x 3. NEURO Reflexes 2+ in triceps, biceps, knees and ankles. [facility]/kmk Signed Danica England M.D. Family Medicine Electronically Signed By:DANICA ENGLAND MD On 02/24/2010 12:07 pm Modified by:DANICA ENGLAND MD On 02/24/2010 12:07 pm Source: [facility] MHSDOLBEYNONRADSYS Document Id: [id number] ED COIL INSPECTOR documented in this encounter Nursing Notes Dominick Bradley L.P.NBrigitte - 04/01/2010 11:49 AM CST Labs 04-01-10 Result card sent per Dr. England. Electronically Signed By:DOMINICK BRADLEY LPN On 04/01/2010 11:49 am Source: [facility] VitaPortal Document Id: [id number] ED COIL INSPECTOR Dominick Bradley L.P.N. - 03/02/2010 4:33 PM CST Labs 02-23-10 Result card sent per Dr. England. Electronically Signed By:DOMINICK BRADLEY LPN On 03/02/2010 04:33 pm Source: [facility]itaPortal Document Id: [id number] ED COIL INSPECTOR documented in this encounter Miscellaneous Notes Miscellaneous - Danica England M.D. - 02/23/2010 11:56 AM CST PHQ-9 PHQ-9 Entered On: 02/23/2010 11:56 COILED COIL INSPECTOR Performed On: 02/23/2010 11:56 COILED COIL INSPECTOR by DANICA ENGLAND MD PHQ-9 Little interest or pleasure in doing things: Not at all Feeling down, depressed, or hopeless: Not at all Trouble falling or staying asleep, or sleeping too much: Not at all Feeling tired or having little energy: Not at all Poor appetite or overeating: Nearly every day Feeling bad about yourself or that you are a failure: Not at all Trouble concentrating on things: Not at all Moving or speaking slowly; restless or fidgety: Not at all Thoughts that you would be better off /hurting self: Not at all PHQ-9 Calculated Score: 3 Problems make work, home, or dealing with others: Not difficult at all DANICA ENGLAND MD - 02/23/2010 11:56 COILED COIL INSPECTOR Source: [facility]Port[facility] Document Id: [id number] COILED COIL INSPECTOR!13 ED COIL INSPECTOR Miscellaneous - Danica England M.D. - 02/23/2010 10:04 AM CST Ambulatory Patient Summary [address] [id number] Visit Information Name: GEMA JAUREGUI Current Date: 02/23/2010 10:04:58 Primary Care Provider: DANICA ENGLADN MD [id number] Your Medications Here is a list of your medications. It is important to take your medications as directed. Use a pillbox or chart to help remind you to take your medications. Please let your doctor or nurse know if you have problems taking your medications. Medication/Strength Dose Route Frequency Indications/Special Instructions/Comments omega-3 polyunsaturated fatty acids (Fish Oil) multivitamin (Multiple Vitamins oral tablet) calcium-vitamin D (Calcium 600+D) buPROPion (buPROPion SR 150 mg oral tablet, sustained release) 150 mg Oral two times a day needs follow up citalopram (citalopram 40 mg oral tablet) 40 mg Oral once a day needs follow up Your Allergies & Intolerances Substance Reaction Symptoms Category Comments codeine Drug Your Problem List Problem Status Onset Comments Dysthymic Disorder Active Premature menopause Active 03/12/1994 Osteopenia Active 07/11/2003 DEXA Hyperlipidemia Active Tobacco dependence Active Personal History of Tobacco Use Active Restless legs Active Pain in knee Active Overweight Active Aggressive Periodontitis, Generalized Active Your Recommendations We want to make sure [...] Additional Information Depression: PHQ-9 every 6 months 06/23/2008 12/23/2008 Screening Mammogram every 1 year Women 40-75 11/24/2008 11/24/2009 X-rays of breast to check for breast cancer. Lipid Panel every 5 years Age 20-75 11/24/2008 11/23/2013 Checks blood for good (HDL) and bad (LDL) cholesterol. Know your numbers, they are one indicator of your risk for heart attack and stroke. Vaccine: Tetanus every 10 years 07/29/1996 07/27/2006 Immunization to help prevent you from getting the serious disease Tetanus (Lockjaw). Your Upcoming Appointments Date Time Location Reason Provider 02/28/2010 08:00 [facility] Mammo annual 02/28/2010 08:30 [facility] Bone Dens osteopenia 02/28/2010 09:15 [facility] Lab Your Goals/Additional instructions: Source: [facility] POWERCHART Document Id: [id number] Electronically signed by [facility] Labeling Specialist [id number] at 07/31/2016 6:24 AM CDT Miscellaneous - Danica England M.D. - 02/23/2010 10:04 AM CST Ambulatory Depart Summary [address] [id number] Visit Information Name: JUVENTINO GEMA Current Date: 02/23/2010 10:04:57 Primary Care Provider: DANICA ENGLAND MD [id number] GEMA JAUREGUI has been given the following list of medications: Your Medications It is important to take your medications as directed. Use a pill box or chart to help remind you to take your medications. Please let your doctor or nurse know if you have problems taking your medications. Medication/Strength Dose Route Frequency Indications/Special Instructions/Comments omega-3 polyunsaturated fatty acids (Fish Oil) multivitamin (Multiple Vitamins oral tablet) calcium-vitamin D (Calcium 600+D) buPROPion (buPROPion SR 150 mg oral tablet, sustained release) 150 mg Oral two times a day needs follow up citalopram (citalopram 40 mg oral tablet) 40 mg Oral once a day needs follow up Additional Information: Source: [facility] VitaPortal Document Id: [id number] Electronically signed by [facility] Labeling Specialist [id number] at 07/31/2016 6:24 AM CDT Miscellaneous - Dominick Bradley L.P.N. - 02/23/2010 8:45 AM CST Adult Gis Technician Intake/History Adult Gis Technician Intake/History Entered On: 02/23/2010 8:46 COILED COIL INSPECTOR Performed On: 02/23/2010 8:45 COILED COIL INSPECTOR by DOMINICK BRADLEY LPN Intake Chief Complaint: physical Temperature Core: 36.6C(Converted to: 97.9DegF) Peripheral Pulse Rate: 80/min Respiratory Rate: 16/min Systolic Blood Pressure: 116mmHg Diastolic Blood Pressure: 72mmHg NIBP Mean: 87mmHg BP Location: Left upper extremity Height: 165.00cm(Converted to: 5ft 5in, 64.96in) Actual Weight: 74.600kg(Converted to: 164lb 7oz) Dosing Weight Clinic: 74.60kg Clinic BSA: 1.85 Body Mass Index: 27kg/m2 DOMINICK BRADLEY LPN - 02/23/2010 8:45 COILED COIL INSPECTOR Subjective Pain Symptoms: No DOMINICK BRADLEY LPN - 02/23/2010 8:45 COILED COIL INSPECTOR Dependent Habits Tobacco Use/Currently Using: No DOMINICK BRADLEY LPN - 02/23/2010 8:45 COILED COIL INSPECTOR Allergies Allergies (Active) codeine Estimated Onset Date: Unspecified ; Created By: DANICA ENGLAND MD; Reaction Status: Active ; Category: Drug ; Substance: codeine ; Type: Allergy ; Updated By: DANICA ENGLAND MD; Reviewed Date: 02/23/2010 8:41 COILED COIL INSPECTOR Source: [facility] POWERCHART Document Id: [id number] COILED COIL INSPECTOR!19 ED COIL INSPECTOR documented in this encounter Plan of Treatment Not on filedocumented as of this encounter Procedures Procedure Name Priority Date/Time Associated Diagnosis Comme nts THINPREP SCREEN HPV Routine 02/23/2010 9:25 AM Re sults for this REFLEX COILED COIL INSPECTOR procedure are i n the results section. documented in this encounter Results ThinPrep Screen HPV Reflex (02/23/2010 9:25 AM COILED COIL INSPECTOR) [facility] Method Time Signature Interpretation [id number] POWERCHART HXThPrep Scrn See Comment POWERCHART [facility] Comment: A. ??ThinPrep Pap Test Screen (Cervical/ Endocervical HPV Reflex): Satisfactory for evaluation. Negative for intraepithelial lesion or m alignancy. Screened at [facility] Cytology Analysi s Office [address] [place] [address] HXThPrep Scrn [facility] See Comment ADRY CONTRERAS Comment: Report electronically signed by JARED Garcia(ASCP) 03/01/2010 11:28 Interpreted by: JARED Garcia(ASCP) [facility] See Comment POWERCHART Comment: A. ??ThinPrep Pap Test Screen (Cervical/ Endocervical HPV Reflex): Received cloudy specimen in ThinPrep via l. Test Performed by: [facility] Dpt of Lab Med and Pathology [address] [place] [address] Panel Assembler: Darius weston III, M.D. Specimen (Source) Anatomical Collection Method Collection Time Re ceived Time Location / / Volume Laterality Cervix/Endocervix 02/23/2010 9:25 AM COILED COIL INSPECTOR Danica England M.D. LAB PAP PATHDX ORDERABLES Performing Organization Address City/State/ZIP Code Phon e Number POWERCHART documented in this encounter Visit Diagnoses Not on filedocumented in this encounter Additional Health Concerns Assessment Noted Time PHQ-9 Depression Total Score: 3 02/23/2010 11:56 AM CS T documented as of this encounter
--- OUTSIDE RECORDS SUMMARY | 2021-10-26 16:15 | XMS_ITS | Encounter Summary ---
:1960 Author Organization [facility] Address [address] [place] [address] Care Team Providers Name Role Phone Unavailable Primary Care Provider Unavailable Encounter Details Date Type Department Care Team Description 01/14/2013 Hospital Encounter HX NO MAPPING Abe Marquis M. D. Social History Tobacco Use Types Packs/Day Years [...] How often do you attend zoroastrian or buddhist services? Patien t refused 12/11/2018 Do you [...] Depression Total Score: 6 01/08/2013 9:31 AM BARREL RACER documented as of this encounter
--- OUTSIDE RECORDS SUMMARY | 2021-10-26 16:16 | XMS_ITS | Clinical Summary ---
:1960 Author Organization [facility] [place] [address] Care Team Providers Name Role Phone Danica England MD Primary Care Provider Allergies Active Allergy Reactions Severity Noted Date Comments Codeine Behavioral Disturbances 05/08/2011 Medications Medication Sig Dispensed Refills Start Date End Date Status buPROPion SR Take 1 tablet by 0 05/08/2011 Active (WELLBUTRIN SR) 200 mg mouth 2 times tablet daily. calcium Take 1 tablet by 0 05/08/2011 Ac tive carbonate-vitamin D3, mouth 2 times 600 mg-400 unit, daily with meals. (CALCIUM 600 + D) tablet multivitamin (MVI) Take 1 tablet by 0 05/08/2011 Active tablet mouth once daily. Fish Oil-Hoyt-3 Fatty Take by mouth. 0 05/08/2011 Active Acids (FISH OIL OMEGA 3-6-9) 300-1,000 mg CpDR sertraline (ZOLOFT) 100 Take 1.5 tablets 0 3 Active mg tablet by mouth once daily. simvastatin (ZOCOR) 20 Take 1 tablet by 0 10/14/2012 Active mg tablet mouth at bedtime. Active Problems Problem Noted Date Adjustment disorder with mixed anxiety and depressed m ood 01/07/2010 Social History Tobacco Use Types Packs/Day Years Used Date Former Smoker Quit: 12/15/19 11 Smokeless Tobacco: Never Used Comments: 5-10 cigs a day Alcohol Use Standard Drinks/Week Comments Not Asked 0 (1 standard drink = 0.6 oz pure alcoho l) Sex Assigned at Date Recorded Not on file Obstetrics History Last Filed Vital Signs Vital Sign Reading Time Taken Comments Blood Pressure 94/63 10/14/2012 2:11 PM CDT Pulse 88 10/14/2012 2:11 PM CDT Temperature 36.6 ??C (97.9 ??F) 10/14/2012 2:11 PM CDT Respiratory Rate - - Oxygen Saturation 98% 10/14/2012 2:11 PM CDT Inhaled Oxygen Concentration - - Weight 73 kg (161 lb) 10/14/2012 2:11 PM CDT Height 166.4 cm (5' 5.5) 10/14/2012 2:11 PM CDT Body Mass Index 26.38 10/14/2012 2:11 PM CDT Plan of Treatment Health Maintenance Due Date Last Done Comments COVID-19 vaccine series (#1) 01[birth year]21/1961 Tdap 07/22/1971 Depression screening for age 12+ 1972 BMI (ht and wt on same day) for age 18+ 1978 Hepatitis C screening for age 18-79 1978 Tetanus booster 1980 Colonoscopy through age 75 2005 Mammogram for age 45-75 2005 Pap test for age 21-65 01/24/2009 01/24/2006 Zoster (shingles) series for age 50+ (1 of 2) 2010 Lipids for age 45-75 01/24/2011 01/24/2006 Influenza for age 50-64 10/27/2021 Results Not on filefrom Last 3 Months Insurance Payer Benefit Plan / Subscriber ID Effective Dates Phone Addre ss Type Group PREFERRED ONE PREFERRED [id number] 2009-[id number] [place] [address] BRIELLE TANG (Home) [place], [place] [phone] (Work) Care Teams Discharge Planner Relationship Specialty Start Date End Date Danica England MD PCP - General Family Practice 07/08/10
[2021-10-26 17:29] LABS: Albumin* 4.6 g/dL (3.3-5.0)
[2021-10-26 17:30] LABS: Chloride* 104 mmol/L (96-114); Potassium* 3.9 mmol/L (3.6-5.1); Sodium* 142 mmol/L (135-149)
[2021-10-26 17:32] LABS: Bilirubin Total* 0.4 mg/dL (0.1-1.5); Carbon Dioxide* 27 mmol/L (20-32); Cholesterol* 178 mg/dL (90-199); Creatinine* 0.9 mg/dL (0.5-1.5); Estimated Glomerular Filt Rate 73 ml/min; Total Protein* 7.2 g/dL (6.0-8.3)
[2021-10-26 17:33] LABS: Alanine Aminotransferase* 42 U/L (4-35); Alkaline Phosphatase* 81 U/L (40-150); Aspartate Amino Transferase* 51 U/L (12-35); Blood Urea Nitrogen* 14 mg/dL (7-30); Calcium* 9.6 mg/dL (8.4-10.6); Glucose* 71 mg/dL (60-115); HDL Cholesterol* 64 mg/dL (>=50); LDL Cholesterol Calculated 90 mg/dL (<100); Triglycerides* 119 mg/dL (40-149)
[2021-10-26 18:02] LABS: TSH With Reflex to FT4* 0.497 uIU/mL (0.270-4.200)
[2021-10-26 18:04] LABS: Ferritin* 47.4 ng/mL (11.1-264.0)
== END 2021-10-26 16:07 | disposition home or self-care (01) ==
PROVIDERS: PCP Family Medicine; Visit Provider Family Medicine
DX: Z01.419 Encounter for gynecological examination (general) (routine) without abnormal findings (principal); E03.9 Hypothyroidism, unspecified; E78.5 Hyperlipidemia, unspecified; F32.A Depression, unspecified; G25.81 Restless legs syndrome; Z13.6 Encounter for screening for cardiovascular disorders
CPT/HCPCS: 80053; 80061; 82728; 84443

== ENCOUNTER 2021-12-15 10:56 | Outpatient (CLI) | payer SELFPAY ==
--- OUTSIDE RECORDS SUMMARY | 2021-12-15 11:04 | XMS_ITS | Encounter Summary ---
:1960 Author Organization [facility] Address [address] [place] [address] Care Team Providers Name Role Phone Reagan Campos M.D. Primary Care Provider [phone] Reason for Referral Outpatient (Routine) - Closed Specialty Diagnoses / Procedures Referred By Contact Refer red To Contact Diagnoses Abnormal Mammogram Reagan Campos [facility] [place] [facility] Procedures BI Breast Diagnostic Left with Tomosynthesis Eva Poole [address] [place] [address] Referral ID Status Reason Start Date Expiration Date Visits Requ ested Visits Authorized [id number] Closed 03/04/2020 03/04/2021 1 1 TRUCK OPERATOR Reason for Visit Outpatient (Routine) - Closed Specialty Diagnoses / Procedures Referred By Contact Refer red To Contact Diagnoses Abnormal Mammogram Reagan Campos [facility] [place] [facility] Procedures BI Breast Diagnostic Left with Tomosynthesis CristobalBBrigitteSEva Briggs [address] [place] [address] Referral ID Status Reason Start Date Expiration Date Visits Requ ested Visits Authorized [id number] Closed 03/04/2020 03/04/2021 1 1 Encounter Details Date Type Department Care Team Description 03/16/2020 Hospital Encounter Department of Reagan Campos Mammogram Radiology in Virgilio Rubin [place], [place] M.D. [address] [place] [phone] Social [...] drinks on one occasion? No t asked Social Isolation Answer Date Recorded In a typical week, how many times do you talk on the Patient refused 12/11/2018 phone with family, friends, or neighbors? How often do you get together with friends or Once a week 12/11/2018 relatives? How often do you attend yarsanism or baptism services? Patien t refused 12/11/2018 [...] ults for LEFT WITH (most inpatients PM LIFT TRUCK OPERATOR Mammogram this proced ure TOMOSYNTHESIS and all are in the outpatients) results section. documented in this encounter Results BI Breast Diagnostic Left with Tomosynthesis (03/16/2020 1:46 PM LIFT TRUCK OPERATOR) Anatomical Region Laterality Modality Breast, Breast Imaging RST LOS, Breast Imaging ARZ LOS, Shi st Left Mammography Imaging FLA LOS Specimen (Source) Anatomical Collection Method Collection Time Re ceived Time Location / / Volume Laterality 03/16/2020 3:55 PM LIFT TRUCK OPERATOR Impressions 03/16/2020 4:00 PM LIFT TRUCK OPERATOR No mammographic findings of malignancy. RECOMMENDATION: ??Annual [...] ??BI-RADS: 2: Benign. Narrative 03/16/2020 4:00 PM LIFT TRUCK OPERATOR EXAM: ??BI BREAST DIAGNOSTIC LEFT WITH TOMOSYNTHESIS, [...] Depression Total Score: 1 03/04/2020 1:48 PM LIFT TRUCK OPERATOR documented as of this encounter Care Teams Nuclear Station Operator Relationship Specialty Start Date End Date Reagan Campos M.B.B.S., M.D. PCP - General 01/27/[address] [place] [phone] documented as of this encounter
--- OUTSIDE RECORDS SUMMARY | 2021-12-15 11:04 | XMS_ITS | Encounter Summary ---
:1960 Author Organization [facility] Address [address] [place] [address] Care Team Providers Name Role Phone Reagan Campos M.D. Primary Care Provider [phone] Reason for Visit Reason Comments Med Refill Encounter Details Date Type Department Care Team Description 05/15/2020 Refill Department of Family Medicine, Homar Hurt M.D. Med Refill [facility], in [address] [phone] Social History Tobacco Use Types Packs/Day [...] How often do you attend mandaeism or methodist services? Patien t refused 12/11/2018 [...] Depression Total Score: 1 03/04/2020 1:48 PM DIRECTOR CASE MANAGEMENT documented as of this encounter Care Teams Voice Pathologist Relationship Specialty Start Date End Date Reagan Campos M.B.B.S., M.D. PCP - General 01/27/[address] [place] [address] [place] [phone] documented as of this encounter
--- OUTSIDE RECORDS SUMMARY | 2021-12-15 11:04 | XMS_ITS | Encounter Summary ---
:1960 Author Organization [facility] Address [address] [place] [address] Care Team Providers Name Role Phone Reagan Campos, Eva Primary Care Provider [phone] Encounter Details Date Type Department Care Team Description 03/03/2021 Orders Only [facility] Reagan Campos Screen ing Mammogram Breast Cancer; MNVirgilio [place], Screening Exam ination Diabetes Mellitus; M.D. Hypothyroidism [address] [place] [phone] Social History Tobacco Use Types Packs/Day Years [...] How often do you attend yarsani or episcopalian services? 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 PCP - General 01/27/[address] [place] [address] [place] [address] documented as of this encounter
--- OUTSIDE RECORDS SUMMARY | 2021-12-15 11:04 | XMS_ITS | Encounter Summary ---
:1960 Author Organization [facility] Address [address] [place] [address] Care Team Providers Name Role Phone Reagan Campos M.D. Primary Care Provider [phone] Reason for Visit Reason Comments Med Refill Encounter Details Date Type Department Care Team Description 01/23/2021 Refill Department of Family Medicine, Reagan Campos I., Med Refill [facility], in [place], [place] 300 [facility] 300 [place] [address] [place] [address] [phone] Social History Tobacco Use Types Packs/Day Years [...] How often do you attend confucianist or pentecostalism services? Patien t refused 12/11/2018 [...] Results Component Value Date TSH 1.3 03/09/2020 FLUME WATCHER documented in this encounter Plan of Treatment Not on filedocumented as of this encounter Visit Diagnoses Not on filedocumented in this encounter Additional Health Concerns Assessment Noted Time PHQ-9 Depression Total Score: 1 03/04/2020 1:48 PM CANE FLUME WATCHER documented as of this encounter Care Teams Health Care Liaison Relationship Specialty Start Date End Date Reagan Campos M.B.BJp, Ayla. PCP - General 01/27/[address] [place] [address] [place] [address] documented as of this encounter
--- OUTSIDE RECORDS SUMMARY | 2021-12-15 11:04 | XMS_ITS | Encounter Summary ---
:[address] [facility] Address [address] [place] [address] Care Team Providers Name Role Phone Reagan Campos M.D. Primary Care Provider [phone] Reason for Referral Outpatient (Routine) - Closed Specialty Diagnoses / Procedures Referred By Contact Refer red To Contact Diagnoses Osteopenia Katina Regalado APRN, C.N.P. [facility] Region Procedures BMD Bone Density Spine Hips Referral ID Status Reason Start Date Expiration Date Visits Requ ested Visits Authorized [id number] Closed 03/04/2020 03/04/2021 1 1 NSION EDGER Reason for Visit Outpatient (Routine) - Closed Specialty Diagnoses / Procedures Referred By Contact Refer red To Contact Diagnoses Osteopenia Katina Regalado APRN, C.N.P. [facility] Region Procedures BMD Bone Density Spine Hips Referral ID Status Reason Start Date Expiration Date Visits Requ ested Visits Authorized [id number] Closed 03/04/2020 03/04/2021 1 1 Encounter Details Date Type Department Care Team Description 03/16/2020 Hospital Encounter Department of Radiology Katina Regalado, Osteopenia in [place], [facility], C.N[facility]P. [address] [place] [address] [facility] [phone] Social History Tobacco Use Types Packs/Day Years [...] How often do you attend scientologist or quaker services? Patien t refused 12/11/2018 [...] for this SPINE HIPS (most inpatients PM EXTENSION EDGER procedure a re in and all the results outpatients) section. documented in this encounter Results BMD Bone Density Spine Hips (03/16/2020 1:09 PM EXTENSION EDGER) Anatomical Region Laterality Modality Hip, Lumbar Spine, Nuclear Medicine RST LOS, N/A Radiographic Imaging Musculoskeletal ARZ LOS, Muskuloskeletal FLA LOS Specimen (Source) Anatomical Collection Method Collection Time Re ceived Time Location / / Volume Laterality 03/16/2020 2:33 PM EXTENSION EDGER Impressions 03/16/2020 2:35 PM EXTENSION EDGER Low bone density (osteopenia). Lumbar spine Narrative 03/16/2020 2:35 PM EXTENSION EDGER EXAM: BMD BONE DENSITY SPINE HIPS COMPARISON: None Seasonal Clerk/Model: [employer] FINDINGS: ?? LUMBAR SPINE Level: L1-L4 included [...] BMD BONE DENSITY SPINE HIPS COMPARISON: None Seasonal Clerk/Model: [employer] FINDINGS: LUMBAR SPINE Level: L1-L4 included unless [...] Depression Total Score: 1 03/04/2020 1:48 PM EXTENSION EDGER documented as of this encounter Care Teams Hydroponics Worker Relationship Specialty Start Date End Date Reagan Campos M.B.B.S., M.D. PCP - General 01/27/[address] [place] [address] [place] [address] documented as of this encounter
--- OUTSIDE RECORDS SUMMARY | 2021-12-15 11:04 | XMS_ITS | Encounter Summary ---
:1960 Author Organization [facility] Address [address] [place] [address] Care Team Providers Name Role Phone Reagan Campos M.D. Primary Care Provider [phone] Reason for Referral Outpatient (Routine) - Authorized Specialty Diagnoses / Procedures Referred By Contact Refer red To Contact Diagnoses Screening Mammogram Breast Cancer Reagan Campos [facility] Region Procedures BI Breast Screening Bilateral with Tomosynthesis Virgilio, Ayla. [address] [place] [address] Referral ID Status Reason Start Date Expiration Date Visits V isits Requested Authorized [id number] Authorized 11/29/2021 11/29/2022 1 1 Encounter Details Date Type Department Care Team Description 11/29/2021 Orders Only [facility] PCP Reagan Velasquez Screen ing Examination Diabetes Mellitus; Virgilio ABBOTT, Screening Mamm ogram Breast Cancer; M.DBrigitte Hypothyroidism [address] [place] [address] Social History Tobacco Use Types Packs/Day [...] How often do you attend jew or judaism services? Patien t refused 12/11/2018 [...] Type Priority Associated Diagnoses Order S chedule Glucose, Fasting Lab Routine Screening Examination Ex pected: Diabetes Mellitus 12/13/2021 , Expires: 05/28/2022 BI Breast Screening Imaging RAD - Routine Screening Mammogram Expected: Bilateral with (most inpatients Breast Cancer 12/30/19 22, Tomosynthesis and all Expires: outpatients) 05/28/2022 S-TSH Lab Routine Hypothyroidism Expected: (Thyroid-Stimulating 022, Hormone - Sensitive) Expires : 05/28/2022 documented as of this encounter Visit Diagnoses Diagnosis Screening Examination Diabetes Mellitus Screening Mammogram Breast Cancer Hypothyroidism documented in this encounter Additional Health Concerns Assessment Noted Time PHQ-9 Depression Total Score: 1 03/04/2020 1:48 PM CHAUFFEUR documented as of this encounter Care Teams Fashion Consultant Selling Relationship Specialty Start Date End Date Reagan Campos M.B.BBrigitteSBrigitte, MEdward. PCP - General 01/27/[address] [place] [phone] documented as of this encounter
--- OUTSIDE RECORDS SUMMARY | 2021-12-15 11:04 | XMS_ITS | Encounter Summary ---
:1960 Author Organization [facility] Address [address] [place] [address] Care Team Providers Name Role Phone Reagan Campos M.D. Primary Care Provider [phone] Reason for Referral Specialty Diagnoses / Procedures Referred By Contact Refer red To Contact Reagan Campos M.B.B.S., [facility] [address] [place] [address] Referral ID Status Reason Start Date Expiration Date Visits Requ ested Visits Authorized OGRAPH PRESS FEEDER Encounter Details Date Type Department Care Team Description 02/18/2021 Orders Only [facility] PCP [facility] Reagan Campos M.B.B.S., M.D. [address] [place], [place] [phone] (Wo rk) Social History [...] How often do you attend gnosticist or jew services? Patien t refused 12/11/2018 [...] Depression Total Score: 1 03/04/2020 1:48 PM LITHOGRAPH PRESS FEEDER documented as of this encounter Care Teams Polymer Tester Relationship Specialty Start Date End Date Reagan Campos M.B.B.S., M.D. PCP - General 01/27/[address] [place] [phone] documented as of this encounter
--- OUTSIDE RECORDS SUMMARY | 2021-12-15 11:04 | XMS_ITS | Encounter Summary ---
:1960 Author Organization [facility] Address [address] [place] [address] Care Team Providers Name Role Phone Reagan Campos M.D. Primary Care Provider [phone] Reason for Visit Reason Comments Med Refill Encounter Details Date Type Department Care Team Description 01/11/2021 Refill Department of Family Medicine, Reagan Campos I., Med Refill [facility], in [place], [place] 300 [facility] 300 [place] [address] [place] [address] [phone] Social History Tobacco Use Types Packs/Day Years [...] How often do you attend sabianism or adventist services? Patien t refused 12/11/2018 [...] Depression Total Score: 1 03/04/2020 1:48 PM BOWLING ALLEY OPERATOR documented as of this encounter Care Teams Staff Forester Relationship Specialty Start Date End Date Reagan Campos M.B.B.S., M.D. PCP - General 01/27/[address] [place] [address] [place] [address] documented as of this encounter
--- OUTSIDE RECORDS SUMMARY | 2021-12-15 11:04 | XMS_ITS | Encounter Summary ---
:[address] [facility] Address [address] [place] [address] Care Team Providers Name Role Phone Reagan Campos M.D. Primary Care Provider [phone] Reason for Visit Reason Comments Med Refill Encounter Details Date Type Department Care Team Description 08/30/2020 Refill Department of Family Medicine, Katina Regalado APRN, Med Refill [facility], in [address] [address] Social History Tobacco Use Types Packs/Day [...] 12/11/2018 relatives? How often do you attend shinto or taoist services? Patien t refused 12/11/2018 Do you belong to any clubs or organizations such as Patient refused 12/11/2018 shinto groups, unions, fraternal or athletic groups, or [...] Depression Total Score: 1 03/04/2020 1:48 PM AV SPECIALIST documented as of this encounter Care Teams Steel Roller Relationship Specialty Start Date End Date Reagan Campos M.B.BBrigitteSBrigitte, Ayla. PCP - General 01/27/[address] [place] [address] [place] Ju[place] [phone] documented as of this encounter
--- OUTSIDE RECORDS SUMMARY | 2021-12-15 11:04 | XMS_ITS | Encounter Summary ---
:1960 Author Organization [facility] Address [address] [place] [address] Care Team Providers Name Role Phone Reagan Campos M.D. Primary Care Provider [phone] Encounter Details Date Type Department Care Team Description 08/16/2020 Immunization Department of [facility] For COVID-19 Medicine, [facility], in [place], [place] [address] [place] [address] [facility] [phone] Social History Tobacco Use Types Packs/Day Years [...] often do you attend roman catholic or restorationist services? Patien t refused 12/11/2018 [...] Depression Total Score: 1 03/04/2020 1:48 PM TOLL RELIEF OPERATOR documented as of this encounter Care Teams Sourcing Assistant Relationship Specialty Start Date End Date Reagan Campos M.B.BJp, MEdward. PCP - General 01/27/19 [address] [place] Juarez, [place] [phone] documented as of this encounter
--- OUTSIDE RECORDS SUMMARY | 2021-12-15 11:04 | XMS_ITS | Encounter Summary ---
:1960 Author Organization [facility] Address [address] [place] [address] Care Team Providers Name Role Phone Reagan Campos M.D. Primary Care Provider [phone] Reason for Visit Reason Comments Med Refill Encounter Details Date Type Department Care Team Description 07/04/2021 Refill Department of Family Medicine, Reagan Campos I., Med Refill [facility], in [place], [place] 300 [facility] 300 [place] [address] [place] [address] [phone] Social History Tobacco Use Types Packs/Day Years [...] How often do you attend pentecostalism or restorationism services? Patien t refused 12/11/2018 Do you [...] Depression Total Score: 1 03/04/2020 1:48 PM QA ARCHITECT documented as of this encounter Care Teams Color Finisher Relationship Specialty Start Date End Date Reagan Campos M.B.B.S., M.D. PCP - General 01/27/[address] [place] [address] [place] [address] documented as of this encounter
--- OUTSIDE RECORDS SUMMARY | 2021-12-15 11:04 | XMS_ITS | Encounter Summary ---
:1960 Author Organization [facility] Address [address] [place] [address] Care Team Providers Name Role Phone Reagan Campos M.D. Primary Care Provider [phone] Encounter Details Date Type Department Care Team Description 03/10/2020 Orders Only Department of Family Katina Regalado, Mariial ipidemia (Primary Medicine, [place] [facility], C.N.P. Dx) Clinic, [place] [address] [place] [address] Social History Tobacco Use Types Packs/Day Years [...] How often do you attend zoroastrian or mormonism services? Patien t refused 12/11/2018 Do you [...] Depression Total Score: 1 03/04/2020 1:48 PM EXTRUDING MACHINE OPERATOR documented as of this encounter Care Teams Header Operator Relationship Specialty Start Date End Date Reagan Campos M.B.BBrigitteSBrigitte, MEdward. PCP - General 01/27/[address] [place] [address] Jennifer Juarez, [place] [phone] documented as of this encounter
--- OUTSIDE RECORDS SUMMARY | 2021-12-15 11:04 | XMS_ITS | Encounter Summary ---
:1960 Author Organization [facility] Address [address] [place] [address] Care Team Providers Name Role Phone Reagan Campos M.D. Primary Care Provider [phone] Reason for Visit Reason Comments Med Refill Encounter Details Date Type Department Care Team Description 04/07/2021 Refill Department of Family Medicine, Katina Regalado APRN, Med Refill [facility], in [address] [address] Social History Tobacco Use Types Packs/Day [...] 12/11/2018 relatives? How often do you attend anglican or presybeterian services? Patien t refused 12/11/2018 Do you belong to any clubs or organizations such as Patient refused 12/11/2018 anglican groups, unions, fraternal or athletic groups, or [...] Depression Total Score: 1 03/04/2020 1:48 PM SCREW SUPERVISOR documented as of this encounter Care Teams White Sugar Boiler Relationship Specialty Start Date End Date Reagan Campos M.B.BBrigitteSBrigitte, Ayla. PCP - General 01/27/[address] [place] [address] [place] Juarez [place] [phone] documented as of this encounter
--- OUTSIDE RECORDS SUMMARY | 2021-12-15 11:04 | XMS_ITS | Encounter Summary ---
:1960 Author Organization [facility] Address [address] [place] [address] Care Team Providers Name Role Phone Reagan Campos M.D. Primary Care Provider [phone] Reason for Visit Reason Comments Med Refill Encounter Details Date Type Department Care Team Description 08/16/2021 Refill Department of Family Medicine, Reagan Campos I., Med Refill [facility], in [place], [place] 300 [facility] 300 [place] [address] [place] [address] [phone] Social History Tobacco Use Types Packs/Day Years [...] 12/11/2018 relatives? How often do you attend buddhism or gnosticism services? Patien t refused 12/11/2018 Do you belong to any clubs or organizations such as Patient refused 12/11/2018 buddhism groups, unions, fraternal or athletic groups, or [...] Depression Total Score: 1 03/04/2020 1:48 PM INSPECTOR FLOOR documented as of this encounter Care Teams Cloth Bleaching Range Tender Relationship Specialty Start Date End Date Reagan Campos M.B.B.S., M.D. PCP - General 01/27/[address] [place] [address] [place] [address] documented as of this encounter
--- OUTSIDE RECORDS SUMMARY | 2021-12-15 11:04 | XMS_ITS | Encounter Summary ---
:1960 Author Organization [facility] Address [address] [place] [address] Care Team Providers Name Role Phone Reagan Campos M.D. Primary Care Provider [phone] Reason for Visit Reason Comments Med Refill Encounter Details Date Type Department Care Team Description 07/20/2020 Refill Department of Family Medicine, Katina Regalado APRN, Med Refill [facility], in [address] [address] Social History Tobacco Use Types Packs/Day [...] How often do you attend caodaism or anabaptism services? Patien t refused 12/11/2018 Do you [...] Depression Total Score: 1 03/04/2020 1:48 PM EDUCATIONAL INSTITUTION PRESIDENT documented as of this encounter Care Teams Patient Account Liaison Relationship Specialty Start Date End Date Reagan Campos M.B.BBrigitteSBrigitte, Ayla. PCP - General 01/27/[address] [place] [address] Jennifer Juaerz [place] [phone] documented as of this encounter
--- OUTSIDE RECORDS SUMMARY | 2021-12-15 11:04 | XMS_ITS | Encounter Summary ---
:1960 Author Organization [facility] Address [address] [place] [address] Care Team Providers Name Role Phone Reagan Campos M.D. Primary Care Provider [phone] Reason for Referral Specialty Diagnoses / Procedures Referred By Contact Refer red To Contact Daniela Flores M.D. [facility] Region [address] [place] [address] Referral ID Status Reason Start Date Expiration Date Visits Requ ested Visits Authorized Encounter Details Date Type Department Care Team Description 06/15/2020 Orders Only [facility] PCP [facility] MNT Sa carmella Flores M.D. [address] [place] [phone] (Wo rk) Social History Tobacco [...] How often do you attend jew or restoration services? Patien t refused 12/11/2018 [...] Depression Total Score: 1 03/04/2020 1:48 PM STATION BAGGAGE AGENT documented as of this encounter Care Teams Cigar Head Holer Relationship Specialty Start Date End Date Reagan Campos M.B.B.S., MEdward. PCP - General 01/27/[address] [place] [phone] documented as of this encounter
--- OUTSIDE RECORDS SUMMARY | 2021-12-15 11:04 | XMS_ITS | Encounter Summary ---
:[address] [facility] Address [address] [place] [address] Care Team Providers Name Role Phone Reagan Campos M.D. Primary Care Provider [phone] Reason for Visit Reason Comments Med Refill Encounter Details Date Type Department Care Team Description 11/19/2020 Refill Department of Family Medicine, Katina Regalado APRN, Med Refill [facility], in [address] [address] Social History Tobacco Use Types Packs/Day [...] 12/11/2018 relatives? How often do you attend episcopalian or baptism services? Patien t refused 12/11/2018 Do you belong to any clubs or organizations such as Patient refused 12/11/2018 episcopalian groups, unions, fraternal or athletic groups, or [...] Depression Total Score: 1 03/04/2020 1:48 PM CURTAIN CLEANER documented as of this encounter Care Teams Temporary Staff Accountant Relationship Specialty Start Date End Date Reagan Campos M.B.BBrigitteSBrigitte, Ayla. PCP - General 01/27/[address] [place] [address] [place] Juarez [place] [phone] documented as of this encounter
--- OUTSIDE RECORDS SUMMARY | 2021-12-15 11:04 | XMS_ITS | Encounter Summary ---
:1960 Author Organization [facility] Address [address] [place] [address] Care Team Providers Name Role Phone Reagan Campos M.D. Primary Care Provider [phone] Encounter Details Date Type Department Care Team Description 03/17/2020 Clinical Communication Department of [facility] Katina Regalado, [facility], [place] [facility] C.NBrigittePBrigitte [facility], in [address] [address] Social History Tobacco Use Types [...] How often do you attend alevism or baptist services? Patien t refused 12/11/2018 [...] Miscellaneous Notes Telephone Encounter - Juan Mcmullen V., C.M.A. - 03/19/2020 8:33 AM LOADING MACHINE OPERATOR SUBJECTIVE CHIEF COMPLAINT / REASON FOR CALL No chief complaint on file. Information Discussed Attempted to contact patient and left a voicemail with call back number. This is the third attempt to contact this patient. Will wait for a return call. PLAN Disposition/Recommendation: N/A Information/Education: not applicable Caller agreeable to plan of care: no N/A The following references were used: none ING MACHINE OPERATOR Telephone Encounter - Tata Khan - 03/18/2020 9:17 AM CST Images from the original note were not included. Left message for patient to return our call. Does the patient need to speak to nursing? Yes Action needed: Katina Regalado APRN, C.N.P. [facility] Nurse ? Please notify the patient [...] foods. ??Continue daily weight-bearing activities. ??Thank you ING MACHINE OPERATOR Telephone Encounter - Juan Mcmullen V. C.MBrigitteABrigitte - 03/17/2020 9:09 AM LOADING MACHINE OPERATOR Images from the original note were not included. Left message for patient to return call to clinic. Does the patient need to speak to nursing? yes Action needed: Inform patient of the following Katina Regalado APRN, C.N.P. [facility] Nurse ?? Please notify the patient [...] foods. ??Continue daily weight-bearing activities. ??Thank you ING MACHINE OPERATOR documented in this encounter Plan of Treatment Not on filedocumented as of this encounter Visit Diagnoses Not on filedocumented in this encounter Additional Health Concerns Assessment Noted Time PHQ-9 Depression Total Score: 1 03/04/2020 1:48 PM LOADING MACHINE OPERATOR documented as of this encounter Care Teams Family Law Mediator Relationship Specialty Start Date End Date Reagan Campos M.B.B.S., M.D. PCP - General 01/27/[address] [place] [address] [place] [address] documented as of this encounter
--- OUTSIDE RECORDS SUMMARY | 2021-12-15 11:04 | XMS_ITS | Encounter Summary ---
:1960 Author Organization [facility] Address [address] [place] [address] Care Team Providers Name Role Phone Reagan Campos M.D. Primary Care Provider [phone] Reason for Referral Specialty Diagnoses / Procedures Referred By Contact Refer red To Contact [facility] [address] [address] Referral ID Status Reason Start Date Expiration Date Visits Requ ested Visits Authorized Encounter Details Date Type Department Care Team Description 2020 Immunization Department of Daniela Ceballos [facility] unter For COVID-19 Medicine, Onel Huang M.D. Vaccine Immunization Building, in [place] [address] [address] [facility] (Primary Dx) [address] [address] [place], [place] [phone] [address] (Work) [phone] Social History Tobacco Use Types Packs/Day Years [...] 12/11/2018 relatives? How often do you attend restoration or church services? Giulia t refused 12/11/2018 Do you belong to any clubs or organizations such as Patient refused 12/11/2018 restoration groups, unions, fraternal or athletic groups, or [...] Depression Total Score: 1 03/04/2020 1:48 PM AMBULATORY TECHNOLOGIST documented as of this encounter Care Teams House Registry Rn Relationship Specialty Start Date End Date Reagan Campos M.B.B.S., M.D. PCP - General 01/27/[address] [place], [place] [address] [address] documented as of this encounter
--- OUTSIDE RECORDS SUMMARY | 2021-12-15 11:04 | XMS_ITS | Clinical Summary ---
:1960 Author Organization [facility] Address [address] [place] [address] Care Team Providers Name Role Phone Reagan Campos M.D. Primary Care Provider [phone] Source Comments Patient records contain information from all sites at [facility]. For routine questions regarding patient records, call [phone] during business hours, M-F 8:00 AM - 5:00 PM Central Time. Record requests for emergency care only can be directed to [phone] at any time.[facility] Allergies Active Allergy Reactions Severity Noted Date [...] Encounters Date Type Specialty Care Team Description 11/29/2021 Orders Only Reagan Campos I., Calvin santizo Examination Diabetes Mellitus; M.B.B.S., M.Loan. Screening [facility] Breast Cancer; Hypothyroidism from Last 3 Months Immunizations Name Administration [...] 12/11/2018 relatives? How often do you attend taoist or sabianism services? Patien t refused 12/11/2018 Do you belong to any clubs or organizations such as Patient refused 12/11/2018 taoist groups, unions, fraPlaynomics or athletic groups, or school groups? How [...] Comments Blood Pressure 124/74 03/04/2020 1:49 PM ADDING MACHINE SERVICER Pulse 65 03/04/2020 1:49 PM ADDING MACHINE SERVICER Temperature 36.4 ??C (97.5 ??F) 03/04/2020 1:49 PM ADDING MACHINE SERVICER Respiratory Rate 16 03/04/2020 1:49 PM ADDING MACHINE SERVICER Oxygen Saturation - - Inhaled Oxygen Concentration - - Weight 72.3 kg (159 lb 6.3 oz) 03/08/2020 9:05 AM ADDING MACHINE SERVICER Height 168.2 cm (5' 6.22) 03/08/2020 9:05 AM ADDING MACHINE SERVICER Body Mass Index 25.56 03/08/2020 9:05 AM ADDING MACHINE SERVICER Plan of Treatment Health Maintenance Due Date Last Done Comments CT Colonography 1960 Cologuard 1960 FIT 1960 HIV Screening 1960 Hepatitis C Screening 1960 Lung Cancer Screening 1960 DTaP,Tdap,and Td Vaccines 07/30/1996 07/29/1996 (1 - Tdap) Zoster Vaccines (1 of 2) 2010 Depression Monitoring 07/02/2020 03/04/2020 (PHQ-9) COVID-19 Vaccine (3 - 10/11/2020 08/16/2020, 2020 Booster for Pfizer series) Fasting [...] Effective Phone Address T ype Group Dates [facility] [id number] 2018-Pres [phone] [employer] [phone] [place] [address] Care Teams Distributed Generation Project Manager Relationship Specialty Start Date End Date Reagan Campos M.B.BBrigitteSBrigitte, M.Loan. PCP - General 01/27/[address] [place] [address] [place] [phone]
--- OUTSIDE RECORDS SUMMARY | 2021-12-15 11:04 | XMS_ITS | Encounter Summary ---
:1960 Author Organization [facility] Address [address] [place] [address] Care Team Providers Name Role Phone Reagan Campos M.D. Primary Care Provider [phone] Reason for Referral Outpatient (Routine) - Closed Specialty Diagnoses / Procedures Referred By Contact Refer red To Contact Diagnoses Abnormal Mammogram Reagan Campso [facility] [place] [facility] Procedures BI Ultrasound Breast Focused Tricia Poole M.D. [address] [place] [address] Referral ID Status Reason Start Date Expiration Date Visits Requ ested Visits Authorized [id number] Closed 03/04/2020 03/04/2021 1 1 STRIAL REAL ESTATE AGENT Reason for Visit Outpatient (Routine) - Closed Specialty Diagnoses / Procedures Referred By Contact Refer red To Contact Diagnoses Abnormal Mammogram Reagan Campos [facility] [place] [facility] Procedures BI Ultrasound Breast Focused Tricia Poole M.D. [address] [place] [address] Referral ID Status Reason Start Date Expiration Date Visits Requ ested Visits Authorized [id number] Closed 03/04/2020 03/04/2021 1 1 Encounter Details Date Type Department Care Team Description 03/16/2020 Hospital Encounter Department of Reagna Campos Mammogram Radiology Virgilio Mantilla, Brenda Gonzalez.D. [address] [place] [id number] Social History Tobacco Use Types Packs/Day Years [...] 12/11/2018 relatives? How often do you attend uatsdin or scientology services? Patien t refused 12/11/2018 Do you belong to any clubs or organizations such as Patient refused 12/11/2018 uatsdin groups, unions, fraternal or athletic groups, or [...] r this BREAST FOCUSED (most inpatients PM INDUSTRIAL REAL ESTATE AGENT Mammogram procedure are in LEFT and all the results outpatients) section. documented in this encounter Results BI Ultrasound Breast Focused Left (03/16/2020 3:13 PM INDUSTRIAL REAL ESTATE AGENT) Anatomical Region Laterality Modality Breast, Breast Imaging RST LOS, Breast Imaging ARZ LOS, [place] [address] Left Ultrasound Imaging FLA LOS Specimen (Source) Anatomical Collection Method Collection Time Re ceived Time Location / / Volume Laterality 03/16/2020 3:55 PM INDUSTRIAL REAL ESTATE AGENT Impressions 03/16/2020 4:00 PM INDUSTRIAL REAL ESTATE AGENT No mammographic findings of malignancy. RECOMMENDATION: ??Annual [...] ??BI-RADS: 2: Benign. Narrative 03/16/2020 4:00 PM INDUSTRIAL REAL ESTATE AGENT EXAM: ??BI BREAST DIAGNOSTIC LEFT WITH TOMOSYNTHESIS, [...] Depression Total Score: 1 03/04/2020 1:48 PM INDUSTRIAL REAL ESTATE AGENT documented as of this encounter Care Teams Relationship Associate Relationship Specialty Start Date End Date Reagan Campos M.B.B.S., M.D. PCP - General 01/27/[address] [place] [address] [place] [address] documented as of this encounter
--- OUTSIDE RECORDS SUMMARY | 2021-12-15 11:05 | XMS_ITS | Encounter Summary ---
:1960 Author Organization [facility] Address [address] [place] [address] Care Team Providers Name Role Phone Reagan Campos M.D. Primary Care Provider [phone] Reason for Referral Outpatient (Routine) - Closed Specialty Diagnoses / Procedures Referred By Contact Refer red To Contact Pulmonary Medicine [facility] Referral ID Status Reason Start Date Expiration Date Visits Requ ested Visits Authorized [id number] Closed 03/04/2020 03/04/2021 1 1 TE MEDICAL CODER Outpatient (Routine) - Closed Specialty Diagnoses / Procedures Referred By Contact Refer red To Contact Diagnoses Osteopenia Katina Regalado APRN, C.N.P. [facility] Procedures BMD Bone Density Spine Hips Referral ID Status Reason Start Date Expiration Date Visits Requ ested Visits Authorized [id number] Closed 03/04/2020 03/04/2021 1 1 TE MEDICAL CODER Outpatient (Routine) - Closed Specialty Diagnoses / Procedures Referred By Contact Refer red To Contact Family Medicine Katina Regalado APRN, C.N.P. [facility] Region Referral ID Status Reason Start Date Expiration Date Visits Requ ested Visits Authorized [id number] Closed 03/04/2020 03/04/2021 1 1 TE MEDICAL CODER Outpatient (Routine) - Closed Specialty Diagnoses / Procedures Referred By Contact Refer red To Contact Family Medicine Katina Regalado APRN, C.N.P. [facility] Region Referral ID Status Reason Start Date Expiration Date Visits Requ ested Visits Authorized [id number] Closed 03/04/2020 03/04/2021 1 1 TE MEDICAL CODER Reason for Visit Reason Comments Med Management Encounter Details Date Type Department Care Team Description 03/04/2020 Comprehensive Visit Department of Katina Regalado, Osteoa rthritis (Primary Dx); Family Medicine, WAYNE, C.N.P. General Med ical Examination Adult; [facility], Restless L eg Syndrome; in [place], Hypothyroidism ; [place] Hyperlipidemia Mixed; [address] Impaired Fasting Glucose; [place], [place] Depression [place] or Recurrent (HCC); [id number] Osteopenia; [phone] Overweight Body Mass Index 25-29.9 Adult; Need [...] 12/11/2018 relatives? How often do you attend christian or adventism services? Patien t refused 12/11/2018 Do you belong to any clubs or organizations such as Patient refused 12/11/2018 christian groups, unions, fraternal or athletic groups, or [...] Comments Blood Pressure 124/74 03/04/2020 1:49 PM REMOTE MEDICAL CODER Pulse 65 03/04/2020 1:49 PM REMOTE MEDICAL CODER Temperature 36.4 ??C (97.5 ??F) 03/04/2020 1:49 PM REMOTE MEDICAL CODER Respiratory Rate 16 03/04/2020 1:49 PM REMOTE MEDICAL CODER Oxygen Saturation - - Inhaled Oxygen Concentration - - Weight 72.3 kg (159 lb 8 oz) 03/04/2020 1:49 PM REMOTE MEDICAL CODER Height 168.2 cm (5' 6.22) 03/04/2020 1:49 PM REMOTE MEDICAL CODER Body Mass Index 25.57 03/04/2020 1:49 PM REMOTE MEDICAL CODER documented in this encounter Patient Instructions Patient InstructionsKatina Regalado APRN, JavierNBrigitteP. - 03/04/2020 2:00 PM REMOTE MEDICAL CODER Follow up on breast imaging. Return for [...] shape so that exercise feels easier. (Source www.[employer].Vtap- Anxiety and Depression Association of [place]) Suicide Hotlines ??? National Suicide Prevention Lifeline o 155-346-DJVS (1809) ??? Crisis Text Line o Text BALDEV to 218-359 ??? [place] Domestic Violence Hotline o 169-406-NENC (7233) ??? Mental Health Crisis Program- [facility] o 526-466-2599 ??? 911 TE MEDICAL CODER documented in this encounter H&P Notes Katina [...] states that she lives with her in [place]. Sheis retired and enjoys spending time with [...] Smoker Packs/day: 0.50 Types: Cigarettes Quit date: 2012 Years since quittin.0 ??? Smokeless tobacco: Never [...] refused Gets together: Once a week Attends adventism service: Patient refused Active member of club [...] position.No nipple discharge. No axillary lymphadenopathy. Extremities: [place] and warm. No edema. Neuro: Cranial nerves [...] in agreement with the above outlined plan. TE MEDICAL CODER documented in this encounter Plan of Treatment Scheduled Referrals Name Type Priority Associated Diagnoses Order [facility] Family Medicine Outpatient Referral Routine Expec hannah: office visit 07/02/2020 (clinic) (Approximate), Expires: 03/04/2023 Family Medicine Outpatient Referral Routine Expec hannah: office visit 03/04/2021 (clinic) (Approximate), Expires: 03/04/2023 PUL Lung Cancer Outpatient Referral Routine Expec hannah: screening program 03/04/2020 referral - initial (Approxim ate), and annual Expires: 03/04/2023 documented as of this encounter Results BMD Bone Density Spine Hips (03/16/2020 1:09 PM REMOTE MEDICAL CODER) Anatomical Region Laterality Modality Hip, Lumbar Spine, Nuclear Medicine RST LOS, N/A Radiographic Imaging Musculoskeletal ARZ LOS, Muskuloskeletal FLA LOS Specimen (Source) Anatomical Collection Method Collection Time Re ceived Time Location / / Volume Laterality 03/16/2020 2:33 PM REMOTE MEDICAL CODER Impressions 03/16/2020 2:35 PM REMOTE MEDICAL CODER Low bone density (osteopenia). Lumbar spine Narrative 03/16/2020 2:35 PM REMOTE MEDICAL CODER EXAM: BMD BONE DENSITY SPINE HIPS COMPARISON: None Sports Attorney/Model: Blue [place]illar FINDINGS: ?? LUMBAR SPINE Level: L1-L4 included [...] BMD BONE DENSITY SPINE HIPS COMPARISON: None Sports Attorney/Model: [place] FINDINGS: LUMBAR SPINE Level: L1-L4 included unless [...] APRN, C.N.P. IMG DXA PROCEDURES Thyroid Function [place] (03/09/2020 9:46 AM REMOTE MEDICAL CODER) athologist Signature TSH, Sensitive 1.3 0.3 - 4.2 03/09/2020 [place] mIU/L 2:26 PM REMOTE MEDICAL CODER Specimen Anatomical Collection Method Collection Time Receive d Time (Source) Location / / Volume Laterality Blood (Blood, 03/09/2020 9:46 AM 03/09/19 1:25 Venous) REMOTE MEDICAL CODER PM REMOTE MEDICAL CODER Katina Regalado APRN, C.N.P. LAB BLOOD ADD-ON Performing Organization Address City/State/ZIP Code Phon e Number [facility]- [address] [place] [address] [place] [address] System in [place] [address] CBC with Differential, Blood (03/09/2020 9:46 AM REMOTE MEDICAL CODER) athologist Signature Hemoglobin 13.0 11.6 - 03/09/2020 FB60 15.0 g/dL 10:07 AM REMOTE MEDICAL CODER Hematocrit 39.8 35.5 - 03/09/2020 FB60 44.9 % 10:07 AM REMOTE MEDICAL CODER Erythrocytes 4.34 3.92 - 03/09/2020 FB60 5.13 10:07 AM REMOTE MEDICAL CODER x10(12)/L MCV 91.7 78.2 - 03/09/2020 FB60 97.9 fL 10:07 AM REMOTE MEDICAL CODER RBC Distrib Width 13.6 12.2 - 03/09/2020 FB60 16.1 % 10:07 AM REMOTE MEDICAL CODER Platelet Count 217 157 - 371 03/09/2020 FB60 x10(9)/L 10:07 AM REMOTE MEDICAL CODER Leukocytes 4.0 3.4 - 9.6 03/09/2020 FB60 x10(9)/L 10:07 AM REMOTE MEDICAL CODER Neutrophils 2.08 1.56 - 03/09/2020 FB60 6.45 10:07 AM REMOTE MEDICAL CODER x10(9)/L Lymphocytes 1.55 0.95 - 03/09/2020 FB60 3.07 10:07 AM REMOTE MEDICAL CODER x10(9)/L Monocytes 0.33 0.26 - 03/09/2020 FB60 0.81 10:07 AM REMOTE MEDICAL CODER x10(9)/L Eosinophils 0.04 0.03 - 03/09/2020 FB60 0.48 10:07 AM REMOTE MEDICAL CODER x10(9)/L Basophils 0.03 0.01 - 03/09/2020 FB60 0.08 10:07 AM REMOTE MEDICAL CODER x10(9)/L Specimen Anatomical Collection Method Collection Time Receive d Time (Source) Location / / Volume Laterality Blood (Blood, 03/09/2020 9:46 AM 03/09/19 9:46 Venous) REMOTE MEDICAL CODER AM REMOTE MEDICAL CODER Katina Regalado APRN, C.N.P. LAB BLOOD ADD-ON Performing Organization Address City/State/ZIP Code Phon e Number [facility] [place] [address] [place] [facility] [address] [place] [address] (ABNORMAL) Basic Metabolic Panel (03/09/2020 9:46 AM REMOTE MEDICAL CODER) P athologist Signature Potassium, P 4.2 3.6 - 5.2 03/09/2020 [place] mmol/L 2:18 PM REMOTE MEDICAL CODER Sodium, P 142 135 - 145 03/09/2020 [place] mmol/L 2:18 PM REMOTE MEDICAL CODER Chloride, P 104 98 - 107 03/09/2020 [place] mmol/L 2:18 PM REMOTE MEDICAL CODER Bicarbonate, P 32 (H) 22 - 29 03/09/2020 [place] mmol/L 2:18 PM REMOTE MEDICAL CODER Anion Gap, P 6 (L) 7 - 15 03/09/2020 [place] 2:18 PM REMOTE MEDICAL CODER BUN (Blood Urea 11 6 - 21 03/09/2020 [place] Nitrogen), P mg/dL 2:18 PM REMOTE MEDICAL CODER Creatinine 0.93 0.59 - 03/09/2020 [place] 1.04 mg/dL 2:18 PM REMOTE MEDICAL CODER eGFR-Black/Afri 78 >=60 03/09/2020 [place] can [place] mL/min/BSA 2:18 PM REMOTE MEDICAL CODER Comment: ----ADDITIONAL INFORMATION---- Estimated GFR calculated using the 2009 CKD_EPI creatinine equation. eGFR Non-Black/ 67 >=60 mL/min/BSA 2:18 PM REMOTE MEDICAL CODER [place] Comment: ----ADDITIONAL INFORMATION---- Estimated GFR calculated using the 2009 CKD_EPI creatinine equation. Calcium, Total, P 9.5 8.6 - 10.0 mg/dL 03/09/2020 2:18 PM REMOTE MEDICAL CODER [place] Glucose, P 111 70 - 140 mg/dL 03/09/2020 2:18 PM REMOTE MEDICAL CODER O [place]UL[place] Specimen Anatomical Collection Method Collection Time Receive d Time (Source) Location / / Volume Laterality Blood (Blood, 03/09/2020 9:46 AM 03/09/19 1:25 Venous) REMOTE MEDICAL CODER PM REMOTE MEDICAL CODER Katina Regalado APRN C.N.P. LAB BLOOD ADD-ON Performing Organization Address City/State/ZIP Code Phon e Number [facility] [address] [place] [address] [facility] [place] [address] System in [place] [address] [facility] (ABNORMAL) Lipid Panel (03/09/2020 9:46 AM REMOTE MEDICAL CODER) athologist Signature Cholesterol, 291 (H) mg/dL 03/09/2020 [place] Total 2:18 PM REMOTE MEDICAL CODER Comment: ----REFERENCE VALUE---- Desirable: < 200 Borderline high: 200 - 239 High: > or = 240 Triglycerides 183 (H) mg/dL 03/09/2020 2:18 PM REMOTE MEDICAL CODER O[place] T Comment: ----REFERENCE VALUE---- Normal: <150 Borderline high: 150-199 High: 200-499 Very high: > or =500 Cholesterol, HDL 50 >=50 mg/dL 03/09/2020 2:18 PM REMOTE MEDICAL CODER [place] Calculated LDL 204 (H) mg/dL 03/09/2020 2:18 PM REMOTE MEDICAL CODER [place] Comment: The markedly elevated LDL level is sugge stive of a genetic condition such as familial hypercholesterolemia (FH) or familial defective apolipoprotei n B-100 (FDB). Molecular genetic testing for FH and FDB is available through [facility]: Hyperc holesterolemia Gene Panel (test FHRGP). [...] or the on-line test claire ramos at [facility] for informati on about how to order these tests or to speak with a [facility] counselor. Further interpretation would require cli nical information. ----REFERENCE VALUE---- Desirable: <100 Above Desirable: 100-129 Borderline high: 130-159 High: 160-189 Very high: > or =190 Cholesterol, Non-HDL, Calculated 241 (H) mg/dL 021 2:18 PM REMOTE MEDICAL CODER [place] Comment: ----REFERENCE VALUE---- Desirable: <130 Above Desirable: 130-159 Borderline high: 160-189 High: 190-219 Very high: > or =220 Specimen Anatomical Collection Method Collection Time Receive d Time (Source) Location / / Volume Laterality Blood (Blood, 03/09/2020 9:46 AM 03/09/19 21 1:25 Venous) REMOTE MEDICAL CODER PM REMOTE MEDICAL CODER Katina Regalado APRN C.N.P. LAB BLOOD ADD-ON Performing Organization Address City/State/ZIP Code Phon e Number [facility]- [address] [place] [address] [place] [address] System in [place] [address] documented in this encounter Visit [...] Depression Total Score: 1 03/04/2020 1:48 PM REMOTE MEDICAL CODER documented as of this encounter Care Teams Commercial Green Building Architect Relationship Specialty Start Date End Date [place], Reagan I., M.B.B.S., M.D. PCP - General 01/27/[address] [place] [address] [place] [phone] documented as of this encounter
--- OUTSIDE RECORDS SUMMARY | 2021-12-15 11:05 | XMS_ITS | Encounter Summary ---
:1960 Author Organization [facility] Address [address] [place] [address] Care Team Providers Name Role Phone Danica England M.D. Primary Care Provider Reason for Visit Reason Comments Med Refill Encounter Details Date Type Department Care Team Description 11/10/2018 Refill Department of Family Medicine, Danica ndiaye M.D. Med Refill [facility], in [address] [place] [address] [place] [address] [place] [address] [place] [address] [phone] Social History Tobacco Use Types Packs/Day Years [...] How often do you attend muslim or hinduism services? Patien t refused 12/11/2018 Do you [...] documented as of this encounter Care Teams Vp Of Technology Relationship Specialty Start Date End Date Danica England M.D. PCP - General 08/10/16 01/26/19 documented as of this encounter
--- OUTSIDE RECORDS SUMMARY | 2021-12-15 11:05 | XMS_ITS | Encounter Summary ---
:[address] [facility] Address [address] [place] [address] Care Team Providers Name Role Phone Reagan Campos M.D. Primary Care Provider [phone] Encounter Details Date Type Department Care Team Description 03/09/2020 Hospital Encounter Department of Katina Regalado, Hyperli pidemia Mixed; Laboratory Medicine DYE MACHINE TENDER, C.N.P. Impaired Fasting Glucose; in [place], [place] [address] [address] [facility] [place] [phone] Social History Tobacco Use Types Packs/Day Years [...] 12/11/2018 relatives? How often do you attend yazdanism or adventism services? Patien t refused 12/11/2018 Do you belong to any clubs or organizations such as Patient refused 12/11/2018 yazdanism groups, unions, fraternal or athletic groups, or [...] 9:46 AM Hyperlipidemia Mixed Results for this RESOURCE AGENT procedure are i n the results section. THYROID FUNCTION Routine 03/09/2020 9:46 AM Hypothyroidism Res ults for this CASCADE, S RESOURCE AGENT procedure are i n the results section. CBC WITH Routine 03/09/2020 9:46 AM Hypothyroidism Results for this DIFFERENTIAL, B RESOURCE AGENT procedure ar e in the results section. BASIC METABOLIC Routine 03/09/2020 9:46 AM Impaired Fasting Re sults for this PANEL, S/P RESOURCE AGENT Glucose procedure are i n the results section. documented in this encounter Results Thyroid Function Frio (03/09/2020 9:46 AM RESOURCE AGENT) P athologist Signature TSH, Sensitive 1.3 0.3 - 4.2 03/09/2020 [place] mIU/L 2:26 PM RESOURCE AGENT Specimen Anatomical Collection Method Collection Time Receive d Time (Source) Location / / Volume Laterality Blood (Blood, 03/09/2020 9:46 AM 03/09/19 21 1:25 Venous) RESOURCE AGENT PM RESOURCE AGENT Javier Estrada APRNN.P. LAB BLOOD ADD-ON Performing Organization Address City/State/ZIP Code Phon e Number [facility]- [address] [place] [address] [facility] [place] [address] System in [place] [address] CBC with Differential, Blood (03/09/2020 9:46 AM RESOURCE AGENT) P athologist Signature Hemoglobin 13.0 11.6 - 03/09/2020 FB60 15.0 g/dL 10:07 AM RESOURCE AGENT Hematocrit 39.8 35.5 - 03/09/2020 FB60 44.9 % 10:07 AM RESOURCE AGENT Erythrocytes 4.34 3.92 - 03/09/2020 FB60 5.13 10:07 AM RESOURCE AGENT x10(12)/L MCV 91.7 78.2 - 03/09/2020 FB60 97.9 fL 10:07 AM RESOURCE AGENT RBC Distrib Width 13.6 12.2 - 03/09/2020 FB60 16.1 % 10:07 AM RESOURCE AGENT Platelet Count 217 157 - 371 03/09/2020 FB60 x10(9)/L 10:07 AM RESOURCE AGENT Leukocytes 4.0 3.4 - 9.6 03/09/2020 FB60 x10(9)/L 10:07 AM RESOURCE AGENT Neutrophils 2.08 1.56 - 03/09/2020 FB60 6.45 10:07 AM RESOURCE AGENT x10(9)/L Lymphocytes 1.55 0.95 - 03/09/2020 FB60 3.07 10:07 AM RESOURCE AGENT x10(9)/L Monocytes 0.33 0.26 - 03/09/2020 FB60 0.81 10:07 AM RESOURCE AGENT x10(9)/L Eosinophils 0.04 0.03 - 03/09/2020 FB60 0.48 10:07 AM RESOURCE AGENT x10(9)/L Basophils 0.03 0.01 - 03/09/2020 FB60 0.08 10:07 AM RESOURCE AGENT x10(9)/L Specimen Anatomical Collection Method Collection Time Receive d Time (Source) Location / / Volume Laterality Blood (Blood, 03/09/2020 9:46 AM 03/09/19 9:46 Venous) RESOURCE AGENT AM RESOURCE AGENT Katina Regalado APRN, C.N.P. LAB BLOOD ADD-ON Performing Organization Address City/State/ZIP Code Phon e Number [facility] [address] [place] [address] [facility] [address] [place] [address] System in [place] [address] (ABNORMAL) Basic Metabolic Panel (03/09/2020 9:46 AM RESOURCE AGENT) P athologist Signature Potassium, P 4.2 3.6 - 5.2 03/09/2020 OW[place] mmol/L 2:18 PM RESOURCE AGENT Sodium, P 142 135 - 145 03/09/2020 [place] mmol/L 2:18 PM RESOURCE AGENT Chloride, P 104 98 - 107 03/09/2020 [place] mmol/L 2:18 PM RESOURCE AGENT Bicarbonate, P 32 (H) 22 - 29 03/09/2020 [place] mmol/L 2:18 PM RESOURCE AGENT Anion Gap, P 6 (L) 7 - 15 03/09/2020 [place] 2:18 PM RESOURCE AGENT BUN (Blood Urea 11 6 - 21 03/09/2020 OW[place] Nitrogen), P mg/dL 2:18 PM RESOURCE AGENT Creatinine 0.93 0.59 - 03/09/2020 OW[place] 1.04 mg/dL 2:18 PM RESOURCE AGENT eGFR-Black/Afri 78 >=60 03/09/2020 OW[place] can Ethiopian mL/min/BSA 2:18 PM RESOURCE AGENT Comment: ----ADDITIONAL INFORMATION---- Estimated GFR calculated using the 2009 CKD_EPI creatinine equation. eGFR Non-Black/ 67 >=60 mL/min/BSA 2:18 PM RESOURCE AGENT OWAT Comment: ----ADDITIONAL INFORMATION---- Estimated GFR calculated using the 2009 CKD_EPI creatinine equation. Calcium, Total, P 9.5 8.6 - 10.0 mg/dL 03/09/2020 2:18 PM RESOURCE AGENT OW[place] Glucose, P 111 70 - 140 mg/dL 03/09/2020 2:18 PM RESOURCE AGENT O EULALIA Specimen Anatomical Collection Method Collection Time Receive d Time (Source) Location / / Volume Laterality Blood (Blood, 03/09/2020 9:46 AM 03/09/19 1:25 Venous) RESOURCE AGENT PM RESOURCE AGENT Katina Regalado APRN CBrigitteNBrigitteP. LAB BLOOD ADD-ON Performing Organization Address City/State/ZIP Code Phon e Number [facility]- [address] [place] [address] [place] [address] System in [place] [address] (ABNORMAL) Lipid Panel (03/09/2020 9:46 AM RESOURCE AGENT) P athologist Signature Cholesterol, 291 (H) mg/dL 03/09/2020 [place] Total 2:18 PM RESOURCE AGENT Comment: ----REFERENCE VALUE---- Desirable: < 200 Borderline high: 200 - 239 High: > or = 240 Triglycerides 183 (H) mg/dL 03/09/2020 2:18 PM RESOURCE AGENT OWA T Comment: ----REFERENCE VALUE---- Normal: <150 Borderline high: 150-199 High: 200-499 Very high: > or =500 Cholesterol, HDL 50 >=50 mg/dL 03/09/2020 2:18 PM RESOURCE AGENT OW[place] Calculated LDL 204 (H) mg/dL 03/09/2020 2:18 PM RESOURCE AGENT OW AT Comment: The markedly elevated LDL level is sugge stive of a genetic condition such as familial hypercholesterolemia (FH) or familial defective apolipoprotei n B-100 (FDB). Molecular genetic testing for FH and FDB is available through [facility]: Hyperc holesterolemia Gene Panel (test FHRGP). [...] or the on-line test claire ramos at [employer] for informati on about how to order these tests or to speak with a [facility] counselor. Further interpretation would require cli nical information. ----REFERENCE VALUE---- Desirable: <100 Above Desirable: 100-129 Borderline high: 130-159 High: 160-189 Very high: > or =190 Cholesterol, Non-HDL, Calculated 241 (H) mg/dL 021 2:18 PM RESOURCE AGENT OW[place] Comment: ----REFERENCE VALUE---- Desirable: <130 Above Desirable: 130-159 Borderline high: 160-189 High: 190-219 Very high: > or =220 Specimen Anatomical Collection Method Collection Time Receive d Time (Source) Location / / Volume Laterality Blood (Blood, 03/09/2020 9:46 AM 03/09/19 21 1:25 Venous) RESOURCE AGENT PM RESOURCE AGENT Katina Regalado APRN, C.N.P. LAB BLOOD ADD-ON Performing Organization Address City/State/ZIP Code Phon e Number [facility]- [address] [place] [address] [facility] [place] [address] System in [place] [address] documented in this encounter Visit Diagnoses Diagnosis Hyperlipidemia Mixed Impaired Fasting Glucose Hypothyroidism documented in this encounter Additional Health Concerns Assessment Noted Time PHQ-9 Depression Total Score: 1 03/04/2020 1:48 PM RESOURCE AGENT documented as of this encounter Care Teams Vice President Of News Relationship Specialty Start Date End Date Reagan Campos M.B.B.S., M.D. PCP - General 01/27/[address] [place] [address] [place] [phone] documented as of this encounter
--- OUTSIDE RECORDS SUMMARY | 2021-12-15 11:05 | XMS_ITS | Encounter Summary ---
:1960 Author Organization [facility] Address [address] [place] [address] Care Team Providers Name Role Phone Reagan Campos M.D. Primary Care Provider [phone] Reason for Referral Outpatient (Routine) - Closed Specialty Diagnoses / Procedures Referred By Contact Refer red To Contact Pulmonary Medicine Diagnoses Smoking Tobacco Use Personal History David Milian M.D. [facility] [address] [place] [address] Referral ID Status Reason Start Date Expiration Date Visits Requ ested Visits Authorized [id number] Closed 03/08/2020 03/08/2021 1 1 Scheduling Instructions To be scheduled prior to CT scan ECT ESTIMATOR MRI/CAT/PET Scan (Routine) - Closed Specialty Diagnoses / Procedures Referred By Contact Refer red To Contact Radiology Diagnoses Smoking Tobacco Use Personal History David Milian M.D. [facility] Procedures CT Chest Lung Cancer Screen Low Dose without IV Contrast 200 [place] [address] Referral ID Status Reason Start Date Expiration Date Visits Requ ested Visits Authorized [id number] Closed 03/08/2020 03/08/2021 1 1 ECT ESTIMATOR Reason for Visit Reason Comments Lung Screening Initial Outpatient (Routine) - Closed Specialty Diagnoses / Procedures Referred By Contact Refer red To Contact Pulmonary Medicine [facility] C.[facility] Referral ID Status Reason Start Date Expiration Date Visits Requ ested Visits Authorized [id number] Closed 03/04/2020 03/04/2021 1 1 Encounter Details Date Type Department Care Team Description 03/08/2020 Virtual Visit Division of Pulmonary Katina Regalado APRN C.N.P. Smoking Tobacco Use Medicine in [place], Dina Sadler, R.N. Personal History [place] (Primary Dx) [address] [place] [address] Social History Tobacco Use Types Packs/Day Years [...] How often do you attend shinto or orthodox services? Patien t refused 12/11/2018 [...] (159 lb 6.3 oz) 03/08/2020 9:05 AM PROJECT ESTIMATOR Height 168.2 cm (5' 6.22) 03/08/2020 9:05 AM PROJECT ESTIMATOR Body Mass Index 25.56 03/08/2020 9:05 AM PROJECT ESTIMATOR documented in this encounter Progress Notes Dina Sadler RBrigitteN. - 03/08/2020 9:00 AM CST [facility] Lung Screening Program Initial Eligibility Evaluation Antonina Harman is a 59 y.o. female referred to the [facility] lung screening program for assessment todetermine eligibility [...] at least 1month after symptom resolution). No Tammemagi 2011 ([id number]) Lung Cancer Risk Prediction Model Percent probability of lung cancer in 6 years calculated from today's answers = 1.035% Personal history of any cancer: no Final Eligibility Determination Patient meets inclusion criteria based on USPSTF guidelines. Exclusion criteria do not apply. Patient is planning to contact their insurance company prior to the scan. She will then schedule theappointments pending insurance coverage. ECT ESTIMATOR documented in this encounter Plan of Treatment [...] Depression Total Score: 1 03/04/2020 1:48 PM PROJECT ESTIMATOR documented as of this encounter Care Teams Bar Welder Relationship Specialty Start Date End Date Reagan Campos M.B.B.S., M.D. PCP - General 01/27/[address] [place] [address] [place] [phone] documented as of this encounter
--- OUTSIDE RECORDS SUMMARY | 2021-12-15 11:05 | XMS_ITS | Encounter Summary ---
:1960 Author Organization [facility] Address [address] [place] [address] Care Team Providers Name Role Phone Danica England M.D. Primary Care Provider Encounter Details Date Type Department Care Team Description 12/12/2018 Hospital Encounter Department of Danica England Major Recurrent (HCC); Laboratory Medicine Eva Faria Impaired Fasting Glucose; [place] [address] Osteoarthritis; [place], [place] Restless Leg Syndrome; [address] [address] Hyperlipidemia Mixed; [place], [place] [phone] Overweight Bod y Mass Index 25-29.9 Adult; [address] (Work) Hypothyroidism [phone] Social History Tobacco Use Types Packs/Day Years [...] How often do you attend alevism or jainism services? Patien t refused 12/11/2018 [...] supplements. ??If the result does not [facility] clinical observations, repeat testing after patient refrains fr om the use of supplements for at least 12 hours. Specimen Anatomical Collection Method Collection Time Receive d Time (Source) Location / / Volume Laterality Blood (Blood, 12/12/2018 8:27 AM 12/13/19 19 Venous) CDT 10:41 AM CDT Danica England M.D. LAB BLOOD ADD-ON Performing Organization Address City/State/ZIP Code Phon e Number [facility]- [address] [place] [address] [place] [address] System in [place] [address] CBC with Differential, [...] Organization Address City/State/ZIP Code Phon e Number [facility]- [address] [place] [address] [facility] [address] [place] [address] System in [place] [address] (ABNORMAL) Lipid Panel (12/12/2018 [...] and FDB is available through [facility]: FH/ADH Genetic Reflex Panel (test [...] or the on-line test claire ramos at [employer] for informati on about how to order these tests or to speak with a [facility] counselor. Further interpretation would require cli nical [...] M.D. LAB BLOOD ADD-ON Performing Organization Address City/[facility] Code Phon e Number [facility]- [address] [place] [address] [place] [address] System in [place] [address] [place] [address] AST (Aspartate Aminotransferase) (12/12/2018 8:27 AM CDT) Patholo gist Method Time Signature Aspartate 37 8 - 43 12/12/2018 OW[place] Aminotransferase U/L 11:38 AM CDT (AST), S Specimen Anatomical Collection Method Collection Time Receive d Time (Source) Location / / Volume Laterality Blood (Blood, 12/12/2018 8:27 AM 12/13/19 Venous) CDT 10:41 AM CDT Danica England M.D. LAB BLOOD ADD-ON Performing Organization Address City/[facility] Code Phon e Number [facility]- [address] [place] [address] [place] [address] System in [place] [address] [place] [address] (ABNORMAL) BMP (Basic Metabolic Panel) (12/12/2018 8:27 [...] 12/12/2018 OWAT Black/ mL/min/BSA 11:38 AM CDT Iranian Comment: ----ADDITIONAL INFORMATION---- Estimated GFR calculated using [...] Organization Address City/State/ZIP Code Phon e Number [facility]- [address] [place] [address] [facility] [place] [address] System in [place] [address] [facility] documented in this encounter Visit Diagnoses Diagnosis Depression Major Recurrent (HCC) Impaired Fasting Glucose Osteoarthritis Restless Leg Syndrome Hyperlipidemia Mixed Overweight Body Mass Index 25-29.9 Adult Hypothyroidism documented in this encounter Additional Health Concerns Assessment Noted Time PHQ-9 Depression Total Score: 5 12/12/2018 7:47 AM CDT documented as of this encounter Care Teams Fast Food Shift Supervisor Relationship Specialty Start Date End Date Danica England M.D. PCP - General 08/10/16 01/26/19 documented as of this encounter
--- OUTSIDE RECORDS SUMMARY | 2021-12-15 11:05 | XMS_ITS | Encounter Summary ---
:1960 Author Organization [facility] Address [address] [place] [address] Care Team Providers Name Role Phone Danica England M.D. Primary Care Provider Encounter Details Date Type Department Care Team Description 12/12/2018 Hospital Encounter Department of Danica England Defi ciency Vitamin Laboratory Medicine M.DBrigitte in [address] [phone] (Work) [phone] Social History Tobacco Use Types Packs/Day Years [...] often do you attend roman catholic or pentecostalism services? Patien t refused 12/11/2018 [...] AM CDT) P athologist Signature Vitamin B12 131 420 - 5337 12/12/2018 AUST Assay, S ng/L 4:39 PM CDT Comment: Biotin has been identified by the iraj felix as a potential interfering substance. ??Higher concentr ations of biotin may be found in multivitamins, hair/nail supple ments, and workout supplements. ??If the result does not [facility] clinical observations, repeat testing after patient refrains fr om the use of supplements for at least 12 hours. Specimen Anatomical Collection Method Collection Time Receive d Time (Source) Location / / Volume Laterality Blood (Blood, 12/12/2018 8:27 AM 12/13/19 4:00 Venous) CDT PM CDT Danica England M.D. LAB BLOOD ADD-ON Performing Organization Address City/State/ZIP Code Phon e Number [facility]- [address] LAB [facility] - [address] documented in this encounter Visit Diagnoses Diagnosis Deficiency Vitamin documented in this encounter Additional Health Concerns Assessment Noted Time PHQ-9 Depression Total Score: 5 12/12/2018 7:47 AM CDT documented as of this encounter Care Teams Big Data Engineer Relationship Specialty Start Date End Date Danica England M.D. PCP - General 08/10/16 01/26/19 documented as of this encounter
--- OUTSIDE RECORDS SUMMARY | 2021-12-15 11:05 | XMS_ITS | Encounter Summary ---
:1960 Author Organization [facility] Address [address] [place] [address] Care Team Providers Name Role Phone Reagan Campos M.D. Primary Care Provider [phone] Reason for Referral Outpatient (Routine) - Closed Specialty Diagnoses / Procedures Referred By Contact Refer red To Contact Diagnoses Screening Mammogram Breast Cancer Reagan Campos [facility] [place] [facility] Procedures BI Breast Screening Bilateral Stephen.B.BEva Trammell [address] [place] [address] Referral ID Status Reason Start Date Expiration Date Visits Requ ested Visits Authorized [id number] Closed 12/01/2019 11/30/2020 1 1 ONNEL MANAGER Reason for Visit Outpatient (Routine) - Closed Specialty Diagnoses / Procedures Referred By Contact Refer red To Contact Diagnoses Screening Mammogram Breast Cancer Reagan Campos [facility] [place] [facility] Procedures BI Breast Screening Bilateral Stephen.BBrigitteBEva Trammell [address] [place] [address] Referral ID Status Reason Start Date Expiration Date Visits Requ ested Visits Authorized [id number] Closed 12/01/2019 11/30/2020 1 1 Encounter Details Date Type Department Care Team Description 03/04/2020 Hospital Encounter Department of Reagan Campos Mammogram Radiology in [place]., M.B.B.S., Breast Cancer [place], [place] [address] [facility] [address] [facility] [place] [phone] Social History Tobacco Use Types Packs/Day Years [...] How often do you attend pentecostalism or latter day services? Patien t refused [...] Results for this SCREENING (most inpatients PM PERSONNEL MANAGER Mammogram Breast procedu re are in BILATERAL and all Cancer the results outpatients) section. documented in this encounter Results (ABNORMAL) BI Breast Screening Bilateral (03/04/2020 1:20 PM PERSONNEL MANAGER) Anatomical Region Laterality Modality Breast, Breast Imaging RST LOS, Breast Imaging ARZ LOS, Shi st Bilateral Mammography Imaging FLA LOS Specimen (Source) Anatomical Collection Method Collection Time Re ceived Time Location / / Volume Laterality 03/04/2020 1:25 PM PERSONNEL MANAGER Impressions 03/04/2020 1:26 PM PERSONNEL MANAGER Incomplete. ??Need additional imaging evaluation. RECOMMENDATION: ??Additional Imaging Diagnostic imaging and breast ultrasound evaluation. ASSESSMENT: ??BI-RADS: 0 - Incomplete: N eeds Additional Imaging Evaluation. Narrative 03/04/2020 1:26 PM PERSONNEL MANAGER EXAM: ??BI BREAST SCREENING BILATERAL Current study was evaluated with a [employer] Aided Detection (CAD) system. INDICATION: ??Screening mammogram. [...] BILATERAL Current study was evaluated with a [employer] Preo Aided Detection (CAD) system. INDICATION: Screening mammogram. [...] Depression Total Score: 1 03/04/2020 1:48 PM PERSONNEL MANAGER documented as of this encounter Care Teams Warehouse Driver Relationship Specialty Start Date End Date Reagan Campos M.B.B.S., M.D. PCP - General 01/27/[address] [place] [phone] documented as of this encounter
--- OUTSIDE RECORDS SUMMARY | 2021-12-15 11:05 | XMS_ITS | Encounter Summary ---
:1960 Author Organization [facility] Address [address] [place] [address] Care Team Providers Name Role Phone Reagan Campos M.D. Primary Care Provider [phone] Reason for Referral Outpatient (Routine) - Closed Specialty Diagnoses / Procedures Referred By Contact Refer red To Contact Diagnoses Screening Mammogram Breast Cancer Reagan Campos [facility] Procedures BI Breast Screening Bilateral Eva Poole [address] [place] [address] Referral ID Status Reason Start Date Expiration Date Visits Requ ested Visits Authorized [id number] Closed 12/01/2019 11/30/2020 1 1 Encounter Details Date Type Department Care Team Description 12/01/2019 Orders Only [facility]pos Al reening Mammogram Cristobal RubinBJp, Breast Cancer M.DBrigitte [address] [place] [address] Social History Tobacco Use Types [...] How often do you attend faith or yazdanism services? Patien t refused 12/11/2018 Do you belong to any clubs or organizations such as Patient refused 12/11/2018 faith groups, [employer], [employer] or athletic groups, or school groups? How [...] on filedocumented as of this encounter Results (ABNORMAL) BI Breast Screening Bilateral (03/04/2020 1:20 PM SECURITY VEHICLE PATROL OFFICER) Anatomical Region Laterality Modality Breast, Breast Imaging RST LOS, Breast Imaging ARZ LOS, [place] st Bilateral Mammography Imaging FLA LOS Specimen (Source) Anatomical Collection Method Collection Time Re ceived Time Location / / Volume Laterality 03/04/2020 1:25 PM SECURITY VEHICLE PATROL OFFICER Impressions 03/04/2020 1:26 PM SECURITY VEHICLE PATROL OFFICER Incomplete. ??Need additional imaging evaluation. RECOMMENDATION: ??Additional Imaging Diagnostic imaging and breast ultrasound evaluation. ASSESSMENT: ??BI-RADS: 0 - Incomplete: N eeds Additional Imaging Evaluation. Narrative 03/04/2020 1:26 PM SECURITY VEHICLE PATROL OFFICER EXAM: ??BI BREAST SCREENING BILATERAL Current study was evaluated with a Status Over[employer]u [employer] Aided Detection (CAD) system. INDICATION: ??Screening mammogram. [...] BILATERAL Current study was evaluated with a Status Overloadu [employer] Aided Detection (CAD) system. INDICATION: Screening mammogram. [...] Diagnoses Diagnosis Screening Mammogram Breast Cancer Screening Mammogram Breast Cancer documented in this encounter Additional Health Concerns Assessment Noted Time PHQ-9 Depression Total Score: 5 12/12/2018 7:47 AM CDT documented as of this encounter Care Teams Community Health Nurse Staff Relationship Specialty Start Date End Date Reagan Campos M.B.B.S., M.D. PCP - General 01/27/[address] [place] [phone] documented as of this encounter
--- OUTSIDE RECORDS SUMMARY | 2021-12-15 11:05 | XMS_ITS | Encounter Summary ---
:1960 Author Organization [facility] Address [address] [place] [address] Care Team Providers Name Role Phone Reagan Campos M.D. Primary Care Provider [phone] Encounter Details Date Type Department Care Team Description 02/18/2020 Clinical Communication Department of [facility] Katina Regalado, Medicine, [place] WAYNE C.N.PBrigitte [facility], in [address] [address] Social History Tobacco Use Types [...] How often do you attend moravian or restorationism services? Patien t refused 12/11/2018 [...] this encounter Miscellaneous Notes Telephone Encounter - Dennise Kelley Stephen - 02/18/2020 10:28 AM CST What is [...] sending patient for testing in [facility] or [facility], route encounter to the correct testing pool. APHONE MECHANIC documented in this encounter Plan of Treatment Not on filedocumented as of this encounter Visit Diagnoses Not on filedocumented in this encounter Additional Health Concerns Assessment Noted Time PHQ-9 Depression Total Score: 5 12/12/2018 7:47 AM CDT documented as of this encounter Care Teams Juvenile Probation Officer Relationship Specialty Start Date End Date Reagan Campos M.B.B.S., M.D. PCP - General 01/27/[address] [place] [phone] documented as of this encounter
--- OUTSIDE RECORDS SUMMARY | 2021-12-15 11:05 | XMS_ITS | Encounter Summary ---
:1960 Author Organization [facility] Address [address] [place] [address] Care Team Providers Name Role Phone Danica Engladn M.D. Primary Care Provider Reason for Visit Reason Comments Med Refill Encounter Details Date Type Department Care Team Description 12/08/2018 Refill Department of Family Medicine, Danica ndiaye M.D. Med Refill [facility], in [address] [place] [address] [place] [address] [place] [address] [place] [address] [phone] Social History Tobacco Use Types Packs/Day Years [...] How often do you attend scientologist or latter day services? Patien t refused [...] documented as of this encounter Care Teams Drug And Alcohol Counsellor Relationship Specialty Start Date End Date Danica England M.D. PCP - General 08/10/16 01/26/19 documented as of this encounter
--- OUTSIDE RECORDS SUMMARY | 2021-12-15 11:05 | XMS_ITS | Encounter Summary ---
:1960 Author Organization [facility] Address [address] [place] [address] Care Team Providers Name Role Phone Reagan Campos M.D. Primary Care Provider [phone] Reason for Visit Reason Comments Med Refill Encounter Details Date Type Department Care Team Description 12/16/2019 Refill Department of Family Medicine, Reagan Campos I., Med Refill [facility], in Stephen Poole [place], [place] 300 [facility] 300 [place] [address] [place] [address] [phone] Social History Tobacco Use Types Packs/Day Years [...] 12/11/2018 relatives? How often do you attend temple or synagogue services? Patien t refused 12/11/2018 Do you belong to any clubs or organizations such as Patient refused 12/11/2018 temple groups, unions, fraternal or athletic groups, or [...] documented as of this encounter Care Teams Plant Maintenance Supervisor Relationship Specialty Start Date End Date Reagan Campos M.B.B.S., Ayla. PCP - General 01/27/[address] [place] [address] Jennifer Juarez, [place] [phone] documented as of this encounter
--- OUTSIDE RECORDS SUMMARY | 2021-12-15 11:05 | XMS_ITS | Encounter Summary ---
:1960 Author Organization [facility] Address [address] [place] [address] Care Team Providers Name Role Phone Reagan Campos M.D. Primary Care Provider [phone] Reason for Visit Reason Comments Med Refill Encounter Details Date Type Department Care Team Description 02/16/2020 Refill Department of Family Medicine, Reagan Campos I., Med Refill [facility], in Stephen Poole [place], [place] 300 [facility] 300 [place] [address] [place] [address] [phone] Social History Tobacco Use Types Packs/Day Years [...] How often do you attend alevism or pentecostalism services? Patien t refused 12/11/2018 [...] - Dorothy Bledsoe - 02/17/2020 11:42 AM WEIGHT ANALYST Called and left a message for the patient to call back to schedule an appointment. HT ANALYST Telephone Encounter - Sybil Leroy L.P.N. - 02/17/2020 11:25 AM WEIGHT ANALYST Please call and assist patient in making an appointment. HT ANALYST Telephone Encounter - Louie Hurt M.D. - 02/17/2020 9:06 AM CST Patient requesting refill of bupropion. Last seen by Dr. England about 15 months ago. No visits with anyone since then. We will give 1 refill and advise of need for an appointment HT ANALYST documented in this encounter Plan of Treatment Not on filedocumented as of this encounter Visit Diagnoses Not on filedocumented in this encounter Additional Health Concerns Assessment Noted Time PHQ-9 Depression Total Score: 5 12/12/2018 7:47 AM CDT documented as of this encounter Care Teams Custom Shoemaker Relationship Specialty Start Date End Date Reagan Campos M.B.BAlya Trammell. PCP - General 01/27/[address] [place] [address] [place] [address] documented as of this encounter
--- OUTSIDE RECORDS SUMMARY | 2021-12-15 11:05 | XMS_ITS | Encounter Summary ---
:1960 Author Organization [facility] Address [address] [place] [address] Care Team Providers Name Role Phone Reagan Campos M.D. Primary Care Provider [phone] Reason for Visit Reason Comments Med Refill Encounter Details Date Type Department Care Team Description 02/03/2020 Refill Department of Family Medicine, Reagan Campos I., Med Refill [facility], in Stephen Poole [place], [place] 300 [facility] 300 [place] [address] [place] [address] [phone] Social History Tobacco Use Types Packs/Day Years [...] 12/11/2018 relatives? How often do you attend tenriism or presybeterian services? Patien t refused 12/11/2018 Do you belong to any clubs or organizations such as Patient refused 12/11/2018 tenriism groups, unions, fraternal or athletic groups, or [...] documented as of this encounter Care Teams Retail Sales Consultant Relationship Specialty Start Date End Date Reagan Campos M.B.B.S., Ayla. PCP - General 01/27/[address] [place] [address] Jennifer Juarez, [place] [phone] documented as of this encounter
--- OUTSIDE RECORDS SUMMARY | 2021-12-15 11:05 | XMS_ITS | Encounter Summary ---
:1960 Author Organization [facility] Address [address] [place] [address] Care Team Providers Name Role Phone Reagan Campos M.D. Primary Care Provider [phone] Reason for Visit Reason Comments Med Refill Encounter Details Date Type Department Care Team Description 01/17/2019 Refill Department of Family Medicine, Danica ndiaye M.D. Med Refill [facility], in [address] [place] [address] [place] [address] [place] [address] [phone] Social History Tobacco Use Types Packs/Day Years [...] How often do you attend muslim or alevism services? Patien t refused 12/11/2018 [...] documented as of this encounter Care Teams Quality Assurance Engineer Relationship Specialty Start Date End Date Reagan Campos M.B.B.S., M.D. PCP - General 01/27/[address] [place] [address] Jennifer Juarez, [place] [phone] documented as of this encounter
--- OUTSIDE RECORDS SUMMARY | 2021-12-15 11:05 | XMS_ITS | Encounter Summary ---
:1960 Author Organization [facility] Address [address] [place] [address] Care Team Providers Name Role Phone Reagan Campos M.D. Primary Care Provider [phone] Reason for Visit Reason Comments Med Refill Encounter Details Date Type Department Care Team Description 12/22/2019 Refill Department of Family Medicine, Reagan Campos I., Med Refill [facility], in Stephen Poole [place], [place] 300 [facility] 300 [place] [address] [place] [address] [phone] Social History Tobacco Use Types Packs/Day Years [...] often do you attend latter day or yarsani services? Patien t refused 12/11/2018 Do you [...] documented as of this encounter Care Teams Sound Art Instructor Relationship Specialty Start Date End Date Reagan Campos M.B.B.S., Ayla. PCP - General 01/27/[address] [place] [address] Jennifer Juarez, [place] [phone] documented as of this encounter
--- OUTSIDE RECORDS SUMMARY | 2021-12-15 11:05 | XMS_ITS | Encounter Summary ---
:1960 Author Organization [facility] Address [address] [place] [address] Care Team Providers Name Role Phone Danica Egnland M.D. Primary Care Provider Encounter Details Date Type Department Care Team Description 12/12/2018 Hospital Encounter Department of Danica England Routine Screening Radiology in [place] Breast Exam [address] 300 [place] [address] Social History Tobacco Use Types Packs/Day [...] How often do you attend zoroastrian or roman catholic services? Patien t refused [...] Imaging RST LOS, Breast Imaging ARZ LOS, [place] [address] Bilateral Mammography Imaging FLA LOS Specimen (Source) Anatomical Collection Method Collection Time Re ceived Time Location / / Volume Laterality 12/12/2018 9:05 AM CDT Impressions 12/12/2018 9:06 AM CDT Negative. RECOMMENDATION: ??Annual Screening Mammo gram ASSESSMENT: ??BI-RADS: 1: Negative. Narrative 12/12/2018 9:06 AM CDT EXAM: ??BI BREAST SCREENING BILATERAL Current study was evaluated with a LAN-Power Aided Detection (CAD) system. INDICATION: ??Screening mammogram. COMPARISON: ??Prior exam(s) were availab le and reviewed for comparison. DENSITY: ??b. There are scattered areas of fibroglandular density. FINDINGS: ??No mammographic findings of malignancy. Procedure Note Tani Oseguera M.D. - 12/12/2018Forma tting of this note might be different from the original. EXAM: BI BREAST SCREENING BILATERAL Current study was evaluated with a LAN-Power Aided Detection (CAD) system. INDICATION: Screening mammogram. [...] documented as of this encounter Care Teams Yard Coupler Relationship Specialty Start Date End Date Danica England M.D. PCP - General 08/10/16 01/26/19 documented as of this encounter
--- OUTSIDE RECORDS SUMMARY | 2021-12-15 11:05 | XMS_ITS | Encounter Summary ---
:1960 Author Organization [facility] Address [address] [place] [address] Care Team Providers Name Role Phone Reagan Camops M.D. Primary Care Provider [phone] Reason for Visit Reason Comments Med Refill Encounter Details Date Type Department Care Team Description 01/13/2020 Refill Department of Family Medicine, Carrie Hirsch APRN, Med Refill [facility], in [place], [place] [address] [address] [place] [address] [phone] Social History Tobacco Use Types Packs/Day Years [...] 12/11/2018 relatives? How often do you attend presybeterian or catholic services? Patien t refused 12/11/2018 Do you belong to any clubs or organizations such as Patient refused 12/11/2018 presybeterian groups, unions, fraternal or athletic groups, or [...] documented as of this encounter Care Teams Pot Tender Relationship Specialty Start Date End Date Reagan Campos M.B.BBrigitteSBrigitte, MEdward. PCP - General 01/27/[address] [place] [address] Jennifer Juarez, [place] [phone] documented as of this encounter
--- OUTSIDE RECORDS SUMMARY | 2021-12-15 11:05 | XMS_ITS | Encounter Summary ---
:1960 Author Organization [facility] Address [address] [place] [address] Care Team Providers Name Role Phone Danica England M.D. Primary Care Provider Reason for Visit Reason Comments Med Refill Encounter Details Date Type Department Care Team Description 10/11/2018 Refill Department of Family Medicine, Danica ndiaye M.D. Med Refill [facility], in [address] [place] [address] [place] [address] [place] [address] [place] [address] [phone] Social History Tobacco Use Types Packs/Day Years [...] 12/11/2018 relatives? How often do you attend rastafarian or jew services? Patien t refused 12/11/2018 Do you belong to any clubs or organizations such as Patient refused 12/11/2018 rastafarian groups, unions, fraternal or athletic groups, or [...] documented as of this encounter Care Teams Therapist Occupational Relationship Specialty Start Date End Date Danica England M.D. PCP - General 08/10/16 01/26/19 documented as of this encounter
--- OUTSIDE RECORDS SUMMARY | 2021-12-15 11:05 | XMS_ITS | Encounter Summary ---
:1960 Author Organization [facility] Address [address] [place] [address] Care Team Providers Name Role Phone Reagan Campos M.D. Primary Care Provider [phone] Encounter Details Date Type Department Care Team Description 02/18/2020 Clinical Communication [place], Obstetrics and Sheri BLACK, Gynecology in [facility] [address] [place] [address] [facility] [phone] Social History Tobacco Use Types Packs/Day Years [...] How often do you attend druze or church services? Patien t refused 12/11/2018 Do you [...] please advise Name of Medication (if relevant): IC OFFICE COORDINATOR documented in this encounter Plan of Treatment Not on filedocumented as of this encounter Visit Diagnoses Not on filedocumented in this encounter Additional Health Concerns Assessment Noted Time PHQ-9 Depression Total Score: 5 12/12/2018 7:47 AM CDT documented as of this encounter Care Teams Weatherization Field Technician Relationship Specialty Start Date End Date Reagan Campos M.B.B.S., M.D. PCP - General 01/27/[address] [place] [phone] documented as of this encounter
--- OUTSIDE RECORDS SUMMARY | 2021-12-15 11:05 | XMS_ITS | Encounter Summary ---
:1960 Author Organization [facility] Address [address] [place] [address] Care Team Providers Name Role Phone Danica England M.D. Primary Care Provider Reason for Visit Reason Comments Med Refill Encounter Details Date Type Department Care Team Description 11/04/2018 Refill Department of Family Medicine, Danica ndiaye M.D. Med Refill [facility], in [address] [place] [address] [place] [address] [place] [address] [place] [address] [phone] Social History Tobacco Use Types Packs/Day Years [...] How often do you attend gnosticist or latter-day services? Patien t refused 12/11/2018 [...] as of this encounter Care Teams Director Enterprise Data Architecture Relationship Specialty Start Date End Date Danica England M.D. PCP - General 08/10/16 01/26/19 documented as of this encounter
--- OUTSIDE RECORDS SUMMARY | 2021-12-15 11:05 | XMS_ITS | Encounter Summary ---
:1960 Author Organization [facility] Address [address] [place] [address] Care Team Providers Name Role Phone Danica England M.D. Primary Care Provider Reason for Visit Reason Comments Med Refill Encounter Details Date Type Department Care Team Description 11/08/2018 Refill Department of Family Medicine, Danica ndiaye M.D. Med Refill [facility], in [address] [place] [address] [place] [address] [place] [address] [place] [address] [phone] Social History Tobacco Use Types Packs/Day Years [...] How often do you attend congregational or hindu services? Patien t refused 12/11/2018 [...] documented as of this encounter Care Teams Customer Assistance Representative Relationship Specialty Start Date End Date Danica England M.D. PCP - General 08/10/16 01/26/19 documented as of this encounter
--- OUTSIDE RECORDS SUMMARY | 2021-12-15 11:05 | XMS_ITS | Encounter Summary ---
:1960 Author Organization [facility] Address [address] [place] [address] Care Team Providers Name Role Phone Danica England M.D. Primary Care Provider Reason for Visit Reason Comments Medication Visit Appointment Request (Routine) - Closed Specialty Diagnoses / Procedures Referred By Contact Refer red To Contact Family Medicine Referral ID Status Reason Start Date Expiration Date Visits Requ ested Visits Authorized [id number] Closed 12/06/2018 12/06/2019 1 1 Encounter Details Date Type Department Care Team Description 12/11/2018 Office Visit Department of Family Danica England, Krista ression Major Recurrent (HCC) (Primary Dx); Medicine, Larry Velasquez Hypothyroidism; Clinic, in [address] Personal History Of Nicotine Dependence; [place], [place] Overweight Body Mass Index 2 5-29.9 Adult; [address] [address] Impaired Fasting Glucose; [place], [place] [phone] Hyperlipidemia Mixed; [address] (Work) Osteoarthritis; [phone] Restless Leg Sy ndrome; (Fax) Routine Screeni [...] How often do you attend congregation or buddhist services? Giulia t refused 12/11/2018 Do you [...] encounter Progress Notes Danica England M.D. - 12/11/2018 1:30 PM CDT [...] BILATERAL Current study was evaluated with a Spotcast Communicationsu ter Aided Detection (CAD) system. INDICATION: Screening mammogram. COMPARISON: Prior exam(s) were available and reviewed for comparison. DENSITY: b. There are scattered areas of fibroglandular density. FINDINGS: No mammographic findings of ma lignancy. IMPRESSION: Negative. RECOMMENDATION: Annual Screening Mammogr am ASSESSMENT: BI-RADS: 1: Negative. Danica England M.D. IMG BI PROCEDURES Vitamin B12 Assay (12/12/2018 8:27 AM CDT) athologist Signature Vitamin B12 446 187 - 8719 12/12/2018 AUST Assay, S ng/L 4:39 PM [...] M.D. LAB BLOOD ADD-ON Performing Organization Address City/[facility] Phon e Number [facility]- [address] LAB AUST [facility] - [address] S-TSH (Thyroid-Stimulating [...] LAB BLOOD ADD-ON Performing Organization Address City/State/[facility] Code Phon e Number [facility]- [address] [address] [place] [facility] [place], [place] [address] System in [place] 2199 CBC with Differential, Blood (12/12/2018 8:27 AM [...] Organization Address City/State/ZIP Code Phon e Number [facility]- [address] [place] [address] [facility] [address] [place] [address] System in [place] [address] (ABNORMAL) Lipid Panel (12/12/2018 [...] for FH and FDB is available through [facility]: FH/ADH Genetic Reflex Panel (test ADHP). [...] or the on-line test claire ramos at [employer] for informati on about how to order these tests or to speak with a [facility] counselor. Further interpretation would require [...] M.D. LAB BLOOD ADD-ON Performing Organization Address City/[facility]/ZIP Code Phon e Number [facility]- [address] [place] [address] [place] [address] System in [place] [address] AST (Aspartate Aminotransferase) (12/12/2018 8:27 AM CDT) Patholo gist Method Time Signature Aspartate 37 8 - 43 12/12/2018 [place] Aminotransferase U/L 11:38 AM CDT (AST), S Specimen Anatomical Collection Method Collection Time Receive d Time (Source) Location / / Volume Laterality Blood (Blood, 12/12/2018 8:27 AM 12/13/19 Venous) CDT 10:41 AM CDT Danica England M.D. LAB BLOOD ADD-ON Performing Organization Address City/[facility] Code Phon e Number [facility]- [address] [place] [address] [place] [address] System in [place] [address] (ABNORMAL) BMP (Basic Metabolic Panel) [...] 12/12/2018 [place] Black/ mL/min/BSA 11:38 AM CDT Slovak Comment: ----ADDITIONAL INFORMATION---- Estimated GFR calculated using [...] Organization Address City/State/ZIP Code Phon e Number [facility]- [address] [place] [address] [place] [address] System in [place] [address] documented in this encounter Visit [...] documented as of this encounter Care Teams Education Program Coordinator Relationship Specialty Start Date End Date Danica England M.D. PCP - General 08/10/16 01/26/19 documented as of this encounter
--- OUTSIDE RECORDS SUMMARY | 2021-12-15 11:05 | XMS_ITS | Encounter Summary ---
:1960 Author Organization [facility] Address [address] [place] [address] Care Team Providers Name Role Phone Danica England M.D. Primary Care Provider Encounter Details Date Type Department Care Team Description 11/05/2018 Orders Only Department of Family Shelley England M.D. Medicine, [facility], [address] [place] [address] [place] [address] [place] [address] [place] [address] [phone] Social History Tobacco Use Types Packs/Day Years [...] How often do you attend alevism or roman catholic services? Patien t refused [...] documented as of this encounter Care Teams Fairground Operator Relationship Specialty Start Date End Date Danica England M.D. PCP - General 08/10/16 01/26/19 documented as of this encounter
--- OUTSIDE RECORDS SUMMARY | 2021-12-15 11:05 | XMS_ITS | Encounter Summary ---
:1960 Author Organization [facility] Address [address] [place] [address] Care Team Providers Name Role Phone Reagan Campos M.D. Primary Care Provider [phone] Reason for Visit Reason Onset Date Comments Med Refill 03/12/2019 Encounter Details Date Type Department Care Team Description 03/12/2019 Refill Department of Family Medicine, Reagan Campos I., Med Refill [facility], in Stephen Poole [place], [place] [address] [facility] 300 [place] [address] [place] [address] [phone] Social History Tobacco Use Types Packs/Day Years [...] How often do you attend episcopalian or islam services? Patien t refused 12/11/2018 [...] as of this encounter Care Teams Health Counselor Relationship Specialty Start Date End Date Reagan Campos M.B.B.S., M.D. PCP - General 01/27/[address] [place] [address] [place] [address] documented as of this encounter
--- OUTSIDE RECORDS SUMMARY | 2021-12-15 11:05 | XMS_ITS | Encounter Summary ---
:1960 Author Organization [facility] Address [address] [place] [address] Care Team Providers Name Role Phone Danica England M.D. Primary Care Provider Encounter Details Date Type Department Care Team Description 12/12/2018 Orders Only Department of Family Shelley England M.D. Medicine, [facility], [address] [place] [address] [place] [address] [place] [address] [place] [address] [phone] Social History Tobacco Use Types Packs/Day Years [...] How often do you attend taoism or hoahaoism services? Patien t refused 12/11/2018 Do you [...] documented as of this encounter Care Teams Wrapper Hands Sprayer Relationship Specialty Start Date End Date Danica England M.D. PCP - General 08/10/16 01/26/19 documented as of this encounter
--- OUTSIDE RECORDS SUMMARY | 2021-12-15 11:05 | XMS_ITS | Encounter Summary ---
:1960 Author Organization [facility] Address [address] [place] [address] Care Team Providers Name Role Phone Danica England M.D. Primary Care Provider Reason for Visit Reason Comments Med Refill Encounter Details Date Type Department Care Team Description 12/06/2018 Refill Department of Family Medicine, Danica ndiaye M.D. Med Refill [facility], in [address] [place] [address] [place] [address] [place] [address] [place] [address] [phone] Social History Tobacco Use Types Packs/Day Years [...] How often do you attend zoroastrianism or yarsani services? Patien t refused 12/11/2018 [...] documented as of this encounter Care Teams Campus Manager Relationship Specialty Start Date End Date Danica England M.D. PCP - General 08/10/16 01/26/19 documented as of this encounter
--- OUTSIDE RECORDS SUMMARY | 2021-12-15 11:05 | XMS_ITS | Encounter Summary ---
:1960 Author Organization [facility] Address [address] [place] [address] Care Team Providers Name Role Phone Reagan Campos M.D. Primary Care Provider [phone] Encounter Details Date Type Department Care Team Description 09/16/2019 Orders Only RST PCP HLTH MNT Reagan Campos Screenin g Examination Diabetes Mellitus; Virgilio Rubin M. D. [facility] [address] [place] [address] Social History Tobacco Use Types [...] 12/11/2018 relatives? How often do you attend cheondoism or islam services? Patien t refused 12/11/2018 Do you belong to any clubs or organizations such as Patient refused 12/11/2018 cheondoism groups, unions, fraternal or athletic groups, or [...] documented as of this encounter Care Teams Bung Dropper Relationship Specialty Start Date End Date Reagan Campos M.B.BAyla Trammell. PCP - General 01/27/[address] [place] [address] Jennifer Juarez [place] [address] documented as of this encounter
--- OUTSIDE RECORDS SUMMARY | 2021-12-15 11:06 | XMS_ITS | Encounter Summary ---
:1960 Author Organization [facility] Address [address] [place] [address] Care Team Providers Name Role Phone Danica England M.D. Primary Care Provider Reason for Visit Reason Comments Med Refill Encounter Details Date Type Department Care Team Description 01/30/2018 Refill Department of Family Medicine, Danica ndiaye M.D. Med Refill [facility], in [address] [place] [address] [place] [address] [place] [address] [place] [address] [phone] Social History Tobacco Use Types Packs/Day Years [...] How often do you attend yarsani or rastafarian services? Patien t refused 12/11/2018 [...] as of this encounter Care Teams Hand Spring Repairer Relationship Specialty Start Date End Date Danica England M.D. PCP - General 08/10/16 01/26/19 documented as of this encounter
--- OUTSIDE RECORDS SUMMARY | 2021-12-15 11:06 | XMS_ITS | Encounter Summary ---
:1960 Author Organization [facility] Address [address] [place] [address] Care Team Providers Name Role Phone Danica England M.D. Primary Care Provider Encounter Details Date Type Department Care Team Description 11/01/2017 Orders Only Department of Family Shelley England M.D. Medicine, [facility], [address] [place] [address] [place] [address] [place] [address] [place] [address] [phone] Social History Tobacco Use Types Packs/Day Years [...] How often do you attend yazdanism or yazdanism services? Patien t refused 12/11/2018 [...] documented as of this encounter Care Teams Machinist Outside Relationship Specialty Start Date End Date Danica England M.D. PCP - General 08/10/16 01/26/19 documented as of this encounter
--- OUTSIDE RECORDS SUMMARY | 2021-12-15 11:06 | XMS_ITS | Encounter Summary ---
:1960 Author Organization [facility] Address [address] [place] [address] Care Team Providers Name Role Phone Danica England M.D. Primary Care Provider Reason for Visit Reason Comments Gynecologic Exam Pelvic exam and pap smear Urinary Incontinence Stress Appointment Request (Routine) - Closed Specialty Diagnoses / Procedures Referred By Contact Refer red To Contact Obstetrics and Gynecology Referral ID Status Reason Start Date Expiration Date Visits Requ ested Visits Authorized [id number] Closed 09/24/2017 09/24/2018 1 1 Encounter Details Date Type Department Care Team Description 11/01/2017 Comprehensive Visit Department of Elder Lemus Urinary Stress Female (Primary Dx); Obstetrics and Jarod, Pap Smear Exa mination Gynecology in [place], [place] [address] [facility] [place] [phone] Social History Tobacco Use Types Packs/Day Years [...] How often do you attend yazidism or methodist services? Patien t refused 12/11/2018 [...] Lemus M.D. - 11/01/2017 9:45 AM CDT MCAT INSTRUCTOR CONSULT NOTE REASON FOR VISIT Patient was [...] ??? KNEE ARTHROSCOPY Left 1976 Residual pain ROPEMAN HISTORY OB History Para Term AB Living [...] + Susc, Urine (11/01/2017 12:23 PM CDT) [facility] gist Method Time Signature Bacterial ESCHERICHIA COLI 11/03/2017 [facility] Culture, 10,000-100,000 cfu/mL 8:18 AM CDT HEALTH Aerobic, (A) SYSTEM- Urine [facility] Specimen Anatomical Collection Method Collection Time [...] Lemus M.D. LAB MICROBIOLOGY - GENERAL O [facility] Performing Organization Address City/State/ZIP Code Phon e Number [place] [id number] [place] [address] LAB (ABNORMAL) HPV with Genotyping, PCR, ThinPrep (11/01/2017 12:20 PM CDT) [facility] Method Time Signature HPV with Positive (A) Negative 11/06/2017 [facility] Genotyping, 9:50 PM CDT HEALTH ThinPrep, PCR [facility] Comment: Positive for high risk HPV by nucleic ac id amplification. Positive for one or more of the following high risk types: 16, 18, 31, 33, 35, 39, 45, 51, 52, 56, 58, 59, 66, and 68. See genotyping result. HPV High Risk type Negative Negative 11/06/2017 9:[address] [facility] 16, PCR [facility] HPV High Risk type Negative Negative 11/06/2017 9:[address] [facility] 18/45, PCR [facility] Specimen Anatomical Collection Method Collection Time Receive d Time (Source) Location / / Volume Laterality Varies 11/01/2017 12:20 11/02/2017 8:16 PM CDT AM CDT Jarod Lemus M.D. LAB MICROBIOLOGY - GENERAL O RDERABLES Performing Organization Address City/State/[place] [address] LAB ThinPrep w/HPV Co-Test Screen (11/01/2017 12:20 PM CDT) Component Value Ref Test Analysis Performed Pathologis t Range Method Time At Signature 11/07/2017 [facility] 7:23 AM HEALTH CDT [facility] CYTOLOGY Report JARED Tariq(ASCP) 11/07/2017 [facility] electronically I verify that I have examined all relevant slides/ma terials 7:23 AM HEALTH signed by for the specimen(s) and rendered or confirmed the diagnosi s. CDT [facility] Gross Description Received specimen 11/07/2017 [facility] in a ThinPrep 7:23 AM HEALTH vial. CDT SYSTEM- [facility] Pap Test Source Cervical/Endocervi 11/07/2017 [facility] mahesh 7:23 AM HEALTH CDT SYSTEM- [facility] Clinical History Screening 11/07/2017 [facility] 7:23 AM HEALTH CDT [facility]- [facility] Menstrual PM 11/07/2017 [facility] Status(LMP, PM, 7:23 AM HEALTH ) CDT [facility]- [facility] Hormone None/Not known 11/07/2017 [facility] Therapy/Contracep 7:23 AM HEALTH tives CDT [facility]- [facility] Interpretation Cervical/Endocervical ??(ThinPrep): 11/07/2017 [facility] Satisfactory for Evaluation 7:23 AM HE ALTH Negative for Intraepithelial Lesion or Malignancy CDT SYSTEM- High Risk HPV Testing results are POSITIVE. [facility] HPV with Genotyping, PCR ThinPrep: CYTOLOGY HPV High Risk Type 16, PCR: NEGATIVE HPV High Risk Type 18/45, PCR: NEGATIVE Other High Risk HPV types include: 31, 33, 35, 39, 51, 52, 56, 58, 59, 66, 68 Additional testing performed at [facility], [place], [address] [place] [address]. Specimen Anatomical Collection Method Collection Time Receive d Time (Source) Location / / Volume Laterality Varies 11/01/2017 12:20 11/02/2017 8:16 (Cervix/Endocerv PM CDT AM CDT ix) Narrative This result has an attachment that is no t available. Jarod Lemus M.D. LAB PAP PATHDX ORDERABLES Performing Organization Address City/State/ZIP Code Phon e Number [place] [id number] [place] [address] CYTOLOGY documented in this encounter Visit Diagnoses Diagnosis Incontinence Urinary Stress Female - [facility] micki Pap Smear Examination documented in this encounter Additional Health Concerns Assessment Noted Time PHQ-9 Depression Total Score: 1 09/25/2017 9:39 AM CDT documented as of this encounter Care Teams Collateral Analyst Relationship Specialty Start Date End Date Danica England M.D. PCP - General 08/10/16 01/26/19 documented as of this encounter
--- OUTSIDE RECORDS SUMMARY | 2021-12-15 11:06 | XMS_ITS | Encounter Summary ---
:1960 Author Organization [facility] Address [address] [place] [address] Care Team Providers Name Role Phone Danica England M.D. Primary Care Provider Reason for Visit Reason Comments Med Refill Encounter Details Date Type Department Care Team Description 01/07/2018 Refill Department of Family Medicine, Danica ndiaye M.D. Med Refill [facility], in [address] [place] [address] [place] [address] [place] [address] [place] [address] [phone] Social History Tobacco Use Types Packs/Day Years [...] How often do you attend orthodoxy or nondenominational services? Patien t refused 12/11/2018 Do you [...] documented as of this encounter Care Teams Caustic Operator Relationship Specialty Start Date End Date Danica England M.D. PCP - General 08/10/16 01/26/19 documented as of this encounter
--- OUTSIDE RECORDS SUMMARY | 2021-12-15 11:06 | XMS_ITS | Encounter Summary ---
:1960 Author Organization [facility] Address [address] [place] [address] Care Team Providers Name Role Phone Danica England M.D. Primary Care Provider Reason for Visit Reason Comments Med Refill Encounter Details Date Type Department Care Team Description 06/04/2018 Refill Department of Family Medicine, Danica ndiaye M.D. Med Refill [facility], in [address] [place] [address] [place] [address] [place] [address] [place] [address] [phone] Social History Tobacco Use Types Packs/Day Years [...] How often do you attend restorationist or amish services? Patien t refused 12/11/2018 [...] documented as of this encounter Care Teams Tanning Drum Operator Relationship Specialty Start Date End Date Danica England M.D. PCP - General 08/10/16 01/26/19 documented as of this encounter
--- OUTSIDE RECORDS SUMMARY | 2021-12-15 11:06 | XMS_ITS | Encounter Summary ---
:1960 Author Organization [facility] Address [address] [place] [address] Care Team Providers Name Role Phone Danica England M.D. Primary Care Provider Encounter Details Date Type Department Care Team Description 04/09/2018 Hospital Encounter Department of Danica England, Pain Chest Wall Radiology in [place], [place] 200 [facility] [address] [place] [address] Social History Tobacco Use Types Packs/Day [...] How often do you attend restorationist or muslim services? Patien t refused 12/11/2018 [...] for WITH CHEST (most inpatients 11:29 AM ELEVATOR CONSTRUCTOR SUPERVISOR this proced ure POSTEROANTERIOR 1 VIEW and all are i n the outpatients) results section. documented in this encounter Results DX Ribs Right 2 Views with Chest Posteroanterior 1 View (04/09/2018 11:29 AM ELEVATOR CONSTRUCTOR SUPERVISOR) Anatomical Region Laterality Modality Ribs, Chest, Musculoskeletal RST LOS, Musculoskeletal Right Digital Radiography ARZ LOS, Muskuloskeletal FLA LOS Specimen (Source) Anatomical Collection Method Collection Time Re ceived Time Location / / Volume Laterality 04/09/2018 12:38 PM ELEVATOR CONSTRUCTOR SUPERVISOR Impressions 04/09/2018 12:41 PM ELEVATOR CONSTRUCTOR SUPERVISOR IMPRESSION: Acute nondisplaced fracture of the right fifth rib laterally. The lungs are clear. No pneumothorax. Narrative 04/09/2018 12:41 PM ELEVATOR CONSTRUCTOR SUPERVISOR EXAM: DX RIBS RIGHT 2 VIEWS [...] as of this encounter Care Teams Electrical Manufacturing Technician Relationship Specialty Start Date End Date Danica England M.D. PCP - General 08/10/16 01/26/19 documented as of this encounter
--- OUTSIDE RECORDS SUMMARY | 2021-12-15 11:06 | XMS_ITS | Encounter Summary ---
:1960 Author Organization [facility] Address [address] [place] [address] Care Team Providers Name Role Phone Danica England M.D. Primary Care Provider Reason for Visit Reason Comments Med Refill Encounter Details Date Type Department Care Team Description 02/28/2018 Refill Department of Family Medicine, Danica ndiaye M.D. Med Refill [facility], in [address] [place] [address] [place] [address] [place] [address] [place] [address] [phone] Social History Tobacco Use Types Packs/Day Years [...] How often do you attend uatsdin or restorationist services? Patien t refused 12/11/2018 [...] documented as of this encounter Care Teams Chemical Librarian Relationship Specialty Start Date End Date Danica England M.D. PCP - General 08/10/16 01/26/19 documented as of this encounter
--- OUTSIDE RECORDS SUMMARY | 2021-12-15 11:06 | XMS_ITS | Encounter Summary ---
:1960 Author Organization [facility] Address [address] [place] [address] Care Team Providers Name Role Phone Danica England M.D. Primary Care Provider Encounter Details Date Type Department Care Team Description 01/30/2018 Orders Only Department of Family Danica England Hyp erlipidemia [facility] MedicineLarry M.D. (Primary Dx) Clinic, in [address] [phone] [address] (Work) [phone] Social History Tobacco Use Types Packs/Day Years [...] How often do you attend gnosticism or episcopal services? Patien t refused 12/11/2018 [...] documented as of this encounter Care Teams Reinforced Concrete Inspector Relationship Specialty Start Date End Date Danica England M.D. PCP - General 08/10/16 01/26/19 documented as of this encounter
--- OUTSIDE RECORDS SUMMARY | 2021-12-15 11:06 | XMS_ITS | Encounter Summary ---
:1960 Author Organization [facility] Address [address] [place] [address] Care Team Providers Name Role Phone Danica England M.D. Primary Care Provider Encounter Details Date Type Department Care Team Description 11/01/2017 Hospital Encounter Department of Danica England Major Recurrent (HCC); Laboratory Medicine Eva Faria Overweight Body Mass Index 25-29.9 Adult ; in [address] Restless Leg Syndrome; [place], [place] Personal History Of Nicotine Dependence; [address] [address] Hyperlipidemia Mixed [place], [place] [phone] [address] (Work) [phone] Social History Tobacco Use Types Packs/Day Years [...] How often do you attend jew or latter-day services? Patien t refused 12/11/2018 [...] Signature Cholesterol, 282 (H) mg/dL 11/01/2017 [facility] Total 11:32 AM CDT [facility] [place] [facility] Comment: ----REFERENCE VALUE---- Desirable: < 200 Borderline high: 200 - 239 High: > or = 240 Triglycerides 174 (H) mg/dL 11/01/2017 11:32 AM CDT [facility] Comment: ----REFERENCE VALUE---- Normal: <150 Borderline high: 150-199 High: 200-499 Very high: > or =500 Cholesterol, HDL, S 61 >=50 mg/dL 11/01/2017 11:32 AM [facility] [place] [facility] Calculated LDL 186 (H) mg/dL 11/01/2017 11:32 AM [facility] Comment: ----REFERENCE VALUE---- Desirable: <100 Above Desirable: 100-129 Borderline high: 130-159 High: 160-189 Very high: > or =190 Cholesterol, Non-HDL, 221 (H) mg/dL 11/01/2017 11:32 A [facility] Calculated CDT SYSTEM- [facility] [place] [facility] Comment: ----REFERENCE VALUE---- Desirable: <130 Above Desirable: 130-159 Borderline high: 160-189 High: 190-219 Very high: > or =220 Specimen Anatomical Collection Method Collection Time Receive d Time (Source) Location / / Volume Laterality Blood (Blood, 11/01/2017 9:10 AM 11/02/19 18 Venous) CDT 10:57 AM CDT Danica England M.D. LAB BLOOD ADD-ON Performing Organization Address City/State/ZIP Code Phon e Number [facility] [address] [place] [address] LAB AST (Aspartate Aminotransferase) (11/01/2017 9:10 AM CDT) [facility] gist Method Time Signature Aspartate 31 8 - 43 11/01/2017 [facility] Aminotransferase U/L 11:32 AM CDT HEALTH (AST), S [facility]- [facility] Specimen Anatomical Collection Method Collection Time Receive d Time (Source) Location / / Volume Laterality Blood (Blood, 11/01/2017 9:10 AM 11/02/19 18 Venous) CDT 10:57 AM CDT Danica England M.D. LAB BLOOD ADD-ON Performing Organization Address City/[facility]/ZIP Code Phon e Number [facility] [address] [place] [address] LAB CBC with Differential, Blood (11/01/2017 9:10 AM CDT) P athologist Signature Hemoglobin 13.6 11.6 - 11/01/2017 [facility] 15.0 g/dL 9:17 AM CDT [email or web address] Hematocrit 41.5 35.5 - 11/01/2017 [facility] 44.9 % 9:17 AM CDT [email or web address] Erythrocytes 4.49 3.92 - 11/01/2017 [facility] 5.13 9:17 AM CDT HEALTH x10(12)/L [facility] MCV 92.4 78.2 - 11/01/2017 [facility] 97.9 fL 9:17 AM CDT [facility] RBC Distrib Width 13.9 12.2 - 11/01/2017 [facility] 16.1 % 9:17 AM CDT [facility] Platelet Count 208 157 - 371 11/01/2017 [facility] x10(9)/L 9:17 AM CDT [email or web address] [facility] Leukocytes 6.2 3.4 - 9.6 11/01/2017 [facility] x10(9)/L 9:17 AM CDT [email or web address] [facility] LAB Neutrophils 3.25 1.56 - 11/01/2017 [facility] 6.45 9:17 AM CDT HEALTH x10(9)/L SYSTEM- [facility] Lymphocytes 2.30 0.95 - 11/01/2017 [facility] 3.07 9:17 AM CDT HEALTH x10(9)/L SYSTEM- [facility] Monocytes 0.55 0.26 - 11/01/2017 [facility] 0.81 9:17 AM CDT HEALTH x10(9)/L SYSTEM- [facility] Eosinophils 0.06 0.03 - 11/01/2017 [facility] 0.48 9:17 AM CDT HEALTH x10(9)/L SYSTEM- [facility] Basophils 0.02 0.01 - 11/01/2017 [facility] 0.08 9:17 AM CDT HEALTH x10(9)/L SYSTEM- [facility] Specimen Anatomical Collection Method Collection Time Receive d Time (Source) Location / / Volume Laterality Blood (Blood, 11/01/2017 9:10 AM 11/02/19 18 9:11 Venous) CDT AM CDT Danica England M.D. LAB BLOOD ADD-ON Performing Organization Address City/State/ZIP Code Phon e Number [facility]- [address] [facility] [place] [address] [place] [facility]- [address] [facility] [place], [place] [address] [place] [address] [facility] BMP (Basic Metabolic Panel) (11/01/2017 9:10 AM T) P athologist Signature Potassium, S 4.6 3.6 - 5.2 11/01/2017 [facility] mmol/L 11:32 AM [facility] [place] [facility] Sodium, S 143 135 - 145 11/01/2017 [facility] mmol/L 11:32 AM [facility] [place] [facility] Chloride, S 104 98 - 107 11/01/2017 [facility] mmol/L 11:32 AM [facility] Bicarbonate, S 27 22 - 29 11/01/2017 [facility] mmol/L 11:32 AM [facility] [place] [facility] Anion Gap 12 7 - 15 11/01/2017 [facility] 11:32 AM [facility] BUN (Blood Urea 19 6 - 21 11/01/2017 [facility] Nitrogen), S mg/dL 11:32 AM [facility] [place] [facility] Creatinine 0.99 0.59 - 11/01/2017 [facility] 1.04 mg/dL 11:32 AM [facility] [place] [facility] eGFR-Non 63 >=60 11/01/2017 [facility] Black/ mL/min/BSA 11:32 AM [facility] [email or web address] [facility] [place] [facility] Comment: ----ADDITIONAL INFORMATION---- Estimated GFR calculated using the 2009 CKD_EPI creatinine equation. eGFR-Black/ 73 >=60 mL/min/BSA 2017 11:32 AM [facility] [place] [facility] Comment: ----ADDITIONAL INFORMATION---- Estimated GFR calculated using the 2009 CKD_EPI creatinine equation. Calcium, Total, S 9.4 8.6 - 10.0 mg/dL 11/01/2017 11:3 2 AM [facility] [place] [facility] Glucose, S 105 70 - 140 mg/dL 11/01/2017 11:32 AM [facility] CDT SYSTEM- [facility] LAB Specimen Anatomical Collection Method Collection Time Receive d Time (Source) Location / / Volume Laterality Blood (Blood, 11/01/2017 9:10 AM 11/02/19 18 Venous) CDT 10:57 AM CDT Danica England M.D. LAB BLOOD ADD-ON Performing Organization Address City/State/ZIP Code Phon e Number [facility]- [facility] [address] [place] [address] LAB documented in this encounter Visit Diagnoses Diagnosis Depression Major Recurrent (HCC) Overweight Body Mass Index 25-29.9 Adult Restless Leg Syndrome Personal History Of Nicotine Dependence Hyperlipidemia Mixed documented in this encounter Additional Health Concerns Assessment Noted Time PHQ-9 Depression Total Score: 1 09/25/2017 9:39 AM CDT documented as of this encounter Care Teams Web Content & Social Media Manager Relationship Specialty Start Date End Date Danica England M.D. PCP - General 08/10/16 01/26/19 documented as of this encounter
--- OUTSIDE RECORDS SUMMARY | 2021-12-15 11:06 | XMS_ITS | Encounter Summary ---
:1960 Author Organization [facility] Address [address] [place] [address] Care Team Providers Name Role Phone Danica England M.D. Primary Care Provider Reason for Visit Reason Onset Date Comments return call 04/09/2018 Encounter Details Date Type Department Care Team Description 04/09/2018 Clinical [facility], [address] [place] [address] [place], [place] [phone] [address] (Work) [phone] Social History Tobacco Use Types Packs/Day Years [...] How often do you attend baptism or congregation services? Patien t refused 12/11/2018 [...] Anything else needed to relay- please call [phone]. ISION LATHE OPERATOR Telephone Encounter - Eileen Galeano L.P.N. - [...] following references were used: provider Dr. Pretty ISION LATHE OPERATOR documented in this encounter Plan of Treatment Not on filedocumented as of this encounter Visit Diagnoses Not on filedocumented in this encounter Additional Health Concerns Assessment Noted Time PHQ-9 Depression Total Score: 1 09/25/2017 9:39 AM CDT documented as of this encounter Care Teams Sueding And Buffing Machine Operator Relationship Specialty Start Date End Date Danica England M.D. PCP - General 08/10/16 01/26/19 documented as of this encounter
--- OUTSIDE RECORDS SUMMARY | 2021-12-15 11:06 | XMS_ITS | Encounter Summary ---
:1960 Author Organization [facility] Address [address] [place] [address] Care Team Providers Name Role Phone Danica England M.D. Primary Care Provider Reason for Visit Reason Comments Med Refill Encounter Details Date Type Department Care Team Description 11/05/2017 Refill Department of Family Medicine, Danica ndiaye M.D. Med Refill [facility], in [address] [place] [address] [place] [address] [place] [address] [place] [address] [phone] Social History Tobacco Use Types Packs/Day Years [...] How often do you attend worship or mormon services? Patien t refused 12/11/2018 [...] documented as of this encounter Care Teams Material Dispatcher Relationship Specialty Start Date End Date Danica England M.D. PCP - General 08/10/16 01/26/19 documented as of this encounter
--- OUTSIDE RECORDS SUMMARY | 2021-12-15 11:06 | XMS_ITS | Encounter Summary ---
:1960 Author Organization [facility] Address [address] [place] [address] Care Team Providers Name Role Phone Danica England M.D. Primary Care Provider Encounter Details Date Type Department Care Team Description 07/09/2018 Orders Only [facility] England M onitoring For Eva [facility] [address] [place] [address] Social History Tobacco Use Types Packs/Day Years [...] How often do you attend presybeterian or congregational services? Patien t refused 12/11/2018 [...] documented as of this encounter Care Teams Pet Training Instructor Relationship Specialty Start Date End Date Danica England M.D. PCP - General 08/10/16 01/26/19 documented as of this encounter
--- OUTSIDE RECORDS SUMMARY | 2021-12-15 11:06 | XMS_ITS | Encounter Summary ---
:1960 Author Organization [facility] Address [address] [place] [address] Care Team Providers Name Role Phone Danica England M.D. Primary Care Provider Reason for Referral Physical Therapy (Routine) - Closed Specialty Diagnoses / Procedures Referred By Contact Refer red To Contact Diagnoses Fracture Rib Single Closed Initial Right Danica England M.D. [facility] Physical Therapy [address] [place] [address] [place] [address] Phone: [phone] Referral ID Status Reason Start Date Expiration Date Visits V isits Requested Authorized [id number] Closed Service not 04/09/2018 04/09/2019 1 1 available in [facility] AND GAME CLUB MANAGER Reason for Visit Reason Comments Pain In Limb rib pain right side, fell on ice Mar 16 Appointment Request (Routine) - Closed Specialty Diagnoses / Procedures Referred By Contact Refer red To Contact Family Medicine Referral ID Status Reason Start Date Expiration Date Visits Requ ested Visits Authorized [id number] Closed 04/09/2018 04/09/2019 1 Encounter Details Date Type Department Care Team Description 04/09/2018 Office Visit Department of Family Danica England Per sonal History Of Nicotine Dependence (Primary Dx); Medicine, Larry Velasquez Depression Major Recurrent (HCC); Clinic, in [place], [address] Overweight Body Mass Index 25-29.9 Adult ; [place], [place] Pain Chest Wall; [address] [address] Fracture Rib Single Closed Initial Right [place] [phone] [address] (Work) [phone] Social History Tobacco Use Types Packs/Day Years [...] How often do you attend tenriism or adventism services? Patien t refused 12/11/2018 [...] Comments Blood Pressure 102/67 04/09/2018 10:38 AM FISH AND GAME CLUB MANAGER Pulse 72 04/09/2018 10:38 AM FISH AND GAME CLUB MANAGER Temperature 36.4 ??C (97.5 ??F) 04/09/2018 10:38 AM FISH AND GAME CLUB MANAGER Respiratory Rate 16 04/09/2018 10:38 AM FISH AND GAME CLUB MANAGER Oxygen Saturation - - Inhaled Oxygen Concentration - - Weight 77.9 kg (171 lb 11.8 oz) 04/09/2018 10:38 AM FISH AND GAME CLUB MANAGER Height - - Body Mass Index 28.61 [...] future. Colon screen: 01/14/[address] Marquis. Isidro plan for 10 years. Depression: Yes. PHQ-9 [...] She will begin physical therapy at the [facility] Physical therapy Department. EMR documentation is completed. She will continue her ibuprofen as well as her other medications. Risks and benefits of medications discussed. All questions answered. Signs and symptoms to lead to emergent evaluation are reviewed. See the medication reconciliation and preventive services. She is comfortable with the plan. AND GAME CLUB MANAGER documented in this encounter Plan of Treatment Not on filedocumented as of this encounter Results DX Ribs Right 2 Views with Chest Posteroanterior 1 View (04/09/2018 11:29 AM FISH AND GAME CLUB MANAGER) Anatomical Region Laterality Modality Ribs, Chest, Musculoskeletal RST LOS, Musculoskeletal Right Digital Radiography ARZ LOS, Muskuloskeletal FLA LOS Specimen (Source) Anatomical Collection Method Collection Time Re ceived Time Location / / Volume Laterality 04/09/2018 12:38 PM FISH AND GAME CLUB MANAGER Impressions 04/09/2018 12:41 PM FISH AND GAME CLUB MANAGER IMPRESSION: Acute nondisplaced fracture of the right fifth rib laterally. The lungs are clear. No pneumothorax. Narrative 04/09/2018 12:41 PM FISH AND GAME CLUB MANAGER EXAM: DX RIBS RIGHT 2 VIEWS WITH [...] documented as of this encounter Care Teams Pairing Machine Operator Relationship Specialty Start Date End Date Danica England M.D. PCP - General 08/10/16 01/26/19 documented as of this encounter
--- OUTSIDE RECORDS SUMMARY | 2021-12-15 11:06 | XMS_ITS | Encounter Summary ---
:1960 Author Organization [facility] Address [address] [place] [address] Care Team Providers Name Role Phone Danica England M.D. Primary Care Provider Encounter Details Date Type Department Care Team Description 11/05/2017 Orders Only Department of Family Shelley England M.D. Medicine, [facility], [address] [place] [address] [place] [address] [place] [address] [place] [address] [phone] Social History Tobacco Use Types Packs/Day Years [...] How often do you attend sabianism or shinto services? Patien t refused 12/11/2018 [...] as of this encounter Care Teams Rn Neurosurgical Relationship Specialty Start Date End Date Danica England M.D. PCP - General 08/10/16 01/26/19 documented as of this encounter
--- OUTSIDE RECORDS SUMMARY | 2021-12-15 11:07 | XMS_ITS | Encounter Summary ---
:1960 Author Organization [facility] Address [address] [place] [address] Care Team Providers Name Role Phone Unavailable Primary Care Provider Unavailable Encounter Details Date Type Department Care Team Description 04/21/2015 Hospital Encounter HX [facility] FAMILYPRA Ayden England M.D. 200 [place], [place] [address] (Wo rk) Social History [...] How often do you attend yazidi or oriental orthodox services? Patien t refused [...] Comments Blood Pressure 120/70 04/21/2015 8:55 AM STRAP BUCKLER Pulse 80 04/21/2015 8:55 AM STRAP BUCKLER Temperature - - Respiratory Rate 16 04/21/2015 8:55 AM STRAP BUCKLER Oxygen Saturation - - Inhaled Oxygen Concentration - - Weight 74 kg (163 lb 2.3 oz) 04/21/2015 8:55 AM STRAP BUCKLER Height 166 cm (5' 5.35) 04/21/2015 8:49 AM STRAP BUCKLER Body Mass Index 26.85 04/21/2015 8:49 AM STRAP BUCKLER documented in this encounter Progress Notes Danica England M.D. - 04/21/2015 8:49 AM CST [id number] CHIEF COMPLAINT/REASON FOR VISIT Followup. HISTORY OF [...] in the memory care unit in the senior care since 2013. Mother has diabetes mellitus and [...] ENGLAND MD On: 04/28/2015 01:49 PM Source: [facility] MHSDOLBEYNONRADSYS Document Id: [id number] P BUCKLER documented in this encounter Miscellaneous Notes Miscellaneous - Lindsey Tian - 03/20/2016 11:10 AM CST *General Message From: LINDSEY TIAN LPN To: GEMA JAUREGUI Sent: 03/20/2016 11:10:16 STRAP BUCKLER Subject: *General Message Gema, According to our records you are coming due for an office visit with review of medical conditions as well as medication refills with Dr. England. Please contact the clinic to schedule an office visit at [phone]. Thank you. Source: [facility] POWERCHART Document Id: [id number] Miscellaneous - Danica England M.D. - 04/21/2015 12:09 PM CST Ambulatory Patient Summary [address] [id number] Visit Information Name: GEMA JAUREGUI [facility] Number: [id number] Current Date: 04/21/2015 [...] Tablet(s), Oral, once a day Routed to [facility] [address] [place] [address] buPROPion (buPROPion SR 200 mg/12 hour oral sustained release tablet) 1 Tablet(s), Oral, two times aday correct amount fluticasone nasal (Flonase 50 mcg/inh nasal spray) 2 [place](s), Nostrils(Both), once a day New Routedto [facility] [address] [place] [address] gabapentin (gabapentin 100 mg oral capsule) 3 cap, Oral, once a day Routed to [facility] [address] [address] melatonin (Melatonin 5 mg oral tablet) [...] if you dont have one. Go to [email or web address] and click on Create Your Account. Then, follow the directions to complete the online form. Youll be asked for your [facility] number which you can find at the top of this document. Your Goals/Additional instructions: Source: [facility] POWERCHART Document Id: [id number] P BUCKLER Miscellaneous - Danica England M.D. - 04/21/2015 12:09 PM CST Ambulatory Discharge Medication List [address] [id number] Visit Information Name: GEMA JAUREGUI [facility] Number: [id number] Visit Date: 04/21/2015 12:09:45 Attending Provider: DANICA ENGALND MD Primary Care Provider: DANICA ENGLAND MD [...] Tablet(s), Oral, once a day Rout[facility] to [facility] [place] [address] buPROPion (buPROPion SR 200 mg/12 hour oral sustained release tablet) 1 Tablet(s), Oral, two times aday correct amount fluticasone nasal (Flonase 50 mcg/inh nasal spray) 2 [place](s), Nostrils(Both), once a day New Routedto [facility] [address] [place] [address] gabapentin (gabapentin 100 mg oral capsule) 3 cap, Oral, once a day Routed to [facility] [address] [address] melatonin (Melatonin 5 mg oral [...] MD Signed On:21-APR-2015 12:09:36 Additional Information: Source: [facility] POWERCHART Document Id: [id number] P BUCKLER Miscellaneous - Danica England M.D. - 04/21/2015 12:04 PM CST PHQ-9 PHQ-9 Entered On: 04/21/2015 12:04 STRAP BUCKLER Performed On: 04/21/2015 12:04 STRAP BUCKLER by DANICA ENGLAND MD PHQ-9 Little interest [...] difficult DANICA ENGLAND MD - 04/21/2015 12:04 STRAP BUCKLER Source: [place] Document Id: [id number] STRAP BUCKLER!13 P BUCKLER Miscellaneous - Dominick Bradley L.P.N. - 04/21/2015 8:55 AM CST Adult Veterinary Practice Manager Intake/History Adult Veterinary Practice Manager Intake/History Entered On: 04/21/2015 8:55 STRAP BUCKLER Performed On: 04/21/2015 8:55 STRAP BUCKLER by DOMINICK BRADLEY LPN Intake Chief Complaint [...] kg DOMINICK BRADLEY LPN - 04/21/2015 8:55 STRAP BUCKLER General Info Languages : Swazi Is Patient Female and 13-50 no hysterectomy : No DOMINICK BRADLEY LPN - 04/21/2015 8:55 STRAP BUCKLER Subjective Pain Symptoms : No DOMINICK BRADLEY LPN - 04/21/2015 8:55 STRAP BUCKLER Dependent Habits Exposure to Tobacco Smoke : Other: former Smoking Status : Former smoker Tobacco 2A : Yes Tobacco Use/Currently Using : No Tobacco Use/Last 30 Days : No Tobacco Use/Last 12 months : No DOMINICK BRADLEY LPN - 04/21/2015 8:55 STRAP BUCKLER Source: [place] Document Id: [id number] STRAP BUCKLER!25 P BUCKLER documented in this encounter Plan of Treatment Not on filedocumented as of this encounter Visit Diagnoses Not on filedocumented in this encounter Additional Health Concerns Assessment Noted Time PHQ-9 Depression Total Score: 4 04/21/2015 12:04 PM CS T documented as of this encounter
--- OUTSIDE RECORDS SUMMARY | 2021-12-15 11:07 | XMS_ITS | Encounter Summary ---
:1960 Author Organization [facility] Address [address] [place] [address] Care Team Providers Name Role Phone Danica England M.D. Primary Care Provider Encounter Details Date Type Department Care Team Description 06/04/2017 Orders Only Department of Family Danica England Scr eening Mammogram Medicine, Larry Velasquez Average Risk Patient Clinic, in [address] (Primary Dx) [place], [place] [address] [address] [place], [place] [phone] [address] (Work) [phone] Social History Tobacco Use Types Packs/Day Years [...] 12/11/2018 relatives? How often do you attend adventist or moravian services? Patien t refused 12/11/2018 Do you belong to any clubs or organizations such as Patient refused 12/11/2018 adventist groups, unions, fraternal or athletic groups, or [...] documented as of this encounter Care Teams Jewel Gauger Relationship Specialty Start Date End Date Danica England M.D. PCP - General 08/10/16 01/26/19 documented as of this encounter
--- OUTSIDE RECORDS SUMMARY | 2021-12-15 11:07 | XMS_ITS | Encounter Summary ---
:1960 Author Organization [facility] Address [address] [place] [address] Care Team Providers Name Role Phone Danica England M.D. Primary Care Provider Encounter Details Date Type Department Care Team Description 09/11/2016 Hospital Encounter HX [facility] Ayden England M.D. 200 [place], [place] [address] (Wo rk) Social History [...] 12/11/2018 relatives? How often do you attend hindu or latter day services? Patien t refused 12/11/2018 Do you belong to any clubs or organizations such as Patient refused 12/11/2018 hindu groups, unions, fraternal or athletic groups, or [...] of this encounter Nursing Notes Eileen Becker L.PBrigitteN. - 09/11/2016 2:03 PM CDT lab results 09/11/16 Results card sent, per Dr. England. Electronically Signed By: EILEEN BECKER LPN On: 09/11/2016 02:03 PM Source: [facility] POWERCHART Document Id: [id number] documented in this encounter Plan of Treatment [...] LDL 146 (H) <=129 MGDL POWERCHART Comment: 2014 National [...] for FH and FDB is available mariana [facility] Laboratories: FH/ADH Genetic Reflex [place] el (test ADHP). Acquired (non-genetic) causes of markedly increased LDL cholesterol include cholestatic liver disease due to the presence of LpX. If a genetic form of hypercholesterolemia is suspected, family studies including biochemical testing fo r lipids (total cholesterol,triglycerides, LDL cholesterol and HDL cholesterol) are recommended. ??Please contact the laboratory at or the on-line test catalog at [employer] for information about how to order these [...] documented as of this encounter Care Teams Assembling Motor Builder Relationship Specialty Start Date End Date Danica England M.D. PCP - General 08/10/16 01/26/19 documented as of this encounter
--- OUTSIDE RECORDS SUMMARY | 2021-12-15 11:07 | XMS_ITS | Encounter Summary ---
:1960 Author Organization [facility] Address [address] [place] [address] Care Team Providers Name Role Phone Danica England M.D. Primary Care Provider Reason for Visit Reason Comments Medication Visit Encounter Details Date Type Department Care Team Description 09/24/2017 Office Visit Department of Family Danica England, Hyp othyroidism (Primary Dx); Medicine, Larry Velasquez Depression Major Recurrent (HCC); Clinic, in [place] [address] Hyperlipidemia Mixed; [place], [place] Overweight Body Mass Index 2 5-29.9 Adult; [address] [address] Personal History Of Nicotine Dependence; [place], [place] [phone] Restless Leg S yndrome; [address] (Work) Routine Screening Breast Exam; [phone] Incontinence Ur inary Stress And Urge (Fax) [...] How often do you attend alevism or gnosticist services? Patien t refused 12/11/2018 Do you [...] might be able to reconsider this option. [place] is comfortable. She wonders if any other [...] 06/07/2016. Planned for the near future. Tetanus: 2005. Pneumovax non applicable due to age. Influenza: [...] Negative. Danica England M.D. IMG BI PROCEDURES (ABNORMAL) Lipid Panel (11/01/2017 9:10 AM CDT) P athologist Signature Cholesterol, 282 (H) mg/dL 11/01/2017 [facility] Total 11:32 AM [facility] dax [place] Comment: ----REFERENCE VALUE---- Desirable: < 200 Borderline high: 200 - 239 High: > or = 240 Triglycerides 174 (H) mg/dL 11/01/2017 11:32 AM CDT [facility]- [employer] LAB Comment: ----REFERENCE VALUE---- Normal: <150 Borderline high: 150-199 High: 200-499 Very high: > or =500 Cholesterol, HDL, S 61 >=50 mg/dL 11/01/2017 11:32 AM [employer] [facility]- [facility] LAB Calculated LDL 186 (H) mg/dL 11/01/2017 11:32 AM [employer] [facility]- [facility] LAB Comment: ----REFERENCE VALUE---- Desirable: <100 Above Desirable: 100-129 Borderline high: 130-159 High: 160-189 Very high: > or =190 Cholesterol, Non-HDL, 221 (H) mg/dL 11/01/2017 11:32 A [facility] [place] Comment: ----REFERENCE VALUE---- Desirable: <130 Above Desirable: 130-159 Borderline high: 160-189 High: 190-219 Very high: > or =220 Specimen Anatomical Collection Method Collection Time Receive d Time (Source) Location / / Volume Laterality Blood (Blood, 11/01/2017 9:10 AM 11/02/19 18 Venous) CDT 10:57 AM CDT Danica England M.D. LAB BLOOD ADD-ON Performing Organization Address City/[facility]/ZIP [facility] Phon e Number [facility] [address] [place] [address] LAB AST (Aspartate Aminotransferase) (11/01/2017 9:10 AM CDT) Patholo gist Method Time Signature Aspartate 31 8 - 43 11/01/2017 [facility] Aminotransferase U/L 11:32 AM T i-Nalysis (AST), S SYSTEM- [facility] Specimen Anatomical Collection Method Collection Time Receive d Time (Source) Location / / Volume Laterality Blood (Blood, 11/01/2017 9:10 AM 11/02/19 18 Venous) CDT 10:57 AM CDT Danica England M.D. LAB BLOOD ADD-ON Performing Organization Address City/[facility]/ZIP [facility] Phon e Number [facility] [address] [place] [address] LAB CBC with Differential, Blood (11/01/2017 9:10 AM CDT) P athologist Signature Hemoglobin 13.6 11.6 - 11/01/2017 [facility] 15.0 g/dL 9:17 AM CDT [employer] LAB Hematocrit 41.5 35.5 - 11/01/2017 [facility] 44.9 % 9:[address] AM CDT [facility] LAB Erythrocytes 4.49 3.92 - 11/01/2017 [facility] 5.13 9:17 AM CDT HEALTH x10(12)/L SYSTEMZanAqua LAB MCV 92.4 78.2 - 11/01/2017 [facility] 97.9 fL 9:17 AM CDT [facility] [employer] [facility] RBC Distrib Width 13.9 12.2 - 11/01/2017 [facility] 16.1 % 9:17 AM CDT [facility] [facility] Platelet Count 208 157 - 371 11/01/2017 [facility] x10(9)/L 9:17 AM CDT [facility] LAB Leukocytes 6.2 3.4 - 9.6 11/01/2017 [facility] x10(9)/L 9:17 AM CDT [facility] Neutrophils 3.25 1.56 - 11/01/2017 [facility] 6.45 9:17 AM CDT HEALTH x10(9)/L SYSTEM- [employer] LAB Lymphocytes 2.30 0.95 - 11/01/2017 [facility] 3.07 9:17 AM CDT HEALTH x10(9)/L SYSTEM- [facility] Monocytes 0.55 0.26 - 11/01/2017 [facility] 0.81 9:17 AM CDT HEALTH x10(9)/L SYSTEM- [employer] LAB Eosinophils 0.06 0.03 - 11/01/2017 [facility] 0.48 9:17 AM CDT HEALTH x10(9)/L SYSTEM- [facility] Basophils 0.02 0.01 - 11/01/2017 [facility] 0.08 9:17 AM CDT [facility] x10(9)/L SYSTEM [employer] LAB Specimen Anatomical Collection Method Collection Time Receive d Time (Source) Location / / Volume Laterality Blood (Blood, 11/01/2017 9:10 AM 11/02/19 18 9:11 Venous) CDT AM CDT Danica England M.D. LAB BLOOD ADD-ON Performing Organization Address City/State/ZIP Code Phon e Number [facility] [address] [place] [address] [place] [facility] [address] [place] [address] [place], [place] [address] [place], [place] [address] [facility] BMP (Basic Metabolic Panel) (11/01/2017 9:10 AM CDT) P athologist Signature Potassium, S 4.6 3.6 - 5.2 11/01/2017 [facility] mmol/L 11:32 AM CDT [facility] Sodium, S 143 135 - 145 11/01/2017 [facility] mmol/L 11:32 AM [facility] Chloride, S 104 98 - 107 11/01/2017 [facility] mmol/L 11:32 AM [facility] Bicarbonate, S 27 22 - 29 11/01/2017 [facility] mmol/L 11:32 AM [facility] Anion Gap 12 7 - 15 11/01/2017 [facility] 11:32 AM [facility] [place] [facility] BUN (Blood Urea 19 6 - 21 11/01/2017 [facility] Nitrogen), S mg/dL 11:32 AM [facility] LAB Creatinine 0.99 0.59 - 11/01/2017 [facility] 1.04 mg/dL 11:32 AM [facility] LAB eGFR-Non 63 >=60 11/01/2017 [facility] Black/ mL/min/BSA 11:32 AM [facility] [employer] - [place] [facility] LAB Comment: ----ADDITIONAL INFORMATION---- Estimated GFR calculated using the 2009 CKD_EPI creatinine equation. eGFR-Black/ 73 >=60 mL/min/BSA 2017 11:32 AM [facility]- [facility] LAB Comment: ----ADDITIONAL INFORMATION---- Estimated GFR calculated using the 2009 CKD_EPI creatinine equation. Calcium, Total, S 9.4 8.6 - 10.0 mg/dL 11/01/2017 11:3 2 AM [facility]- [employer] [facility] LAB Glucose, S 105 70 - 140 mg/dL 11/01/2017 11:32 AM [facility] Specimen Anatomical Collection Method Collection Time Receive d Time (Source) Location / / Volume Laterality Blood (Blood, 11/01/2017 9:10 AM 11/02/19 18 Venous) CDT 10:57 AM CDT Danica England M.D. LAB BLOOD ADD-ON Performing Organization Address City/State/ZIP Code Phon e Number [facility]ITAL[facility]works [facility]AT[facility] [address] [place] [address] LAB documented in this encounter Visit Diagnoses [...] documented as of this encounter Care Teams Ground Systems Engineer Relationship Specialty Start Date End Date Danica England M.D. PCP - General 08/10/16 01/26/19 documented as of this encounter
--- OUTSIDE RECORDS SUMMARY | 2021-12-15 11:07 | XMS_ITS | Encounter Summary ---
:1960 Author Organization [facility] Address [address] [place] [address] Care Team Providers Name Role Phone Danica England M.D. Primary Care Provider Reason for Visit Reason Comments Med Refill Encounter Details Date Type Department Care Team Description 09/03/2017 Refill Department of Family Medicine, Danica ndiaye M.D. Med Refill [facility], in [address] [place] [address] [place] [address] [place] [address] [place] [address] [phone] Social History Tobacco Use Types Packs/Day Years [...] How often do you attend denominational or restoration services? Patien t refused 12/11/2018 [...] documented as of this encounter Care Teams Transformer Molder Relationship Specialty Start Date End Date Danica England M.D. PCP - General 08/10/16 01/26/19 documented as of this encounter
--- OUTSIDE RECORDS SUMMARY | 2021-12-15 11:07 | XMS_ITS | Encounter Summary ---
:1960 Author Organization [facility] Address [address] [place] [address] Care Team Providers Name Role Phone Danica England M.D. Primary Care Provider Reason for Visit Reason Comments Med Refill Encounter Details Date Type Department Care Team Description 09/10/2017 Refill Department of Family Medicine, Danica ndiaye M.D. Med Refill [facility], in [address] [place] [address] [place] [address] [place] [address] [place] [address] [phone] Social History Tobacco Use Types Packs/Day Years [...] as of this encounter Care Teams Family Advocate Relationship Specialty Start Date End Date Danica England M.D. PCP - General 08/10/16 01/26/19 documented as of this encounter
--- OUTSIDE RECORDS SUMMARY | 2021-12-15 11:07 | XMS_ITS | Encounter Summary ---
:[address] [facility] Address [address] [place] [address] Care Team Providers Name Role Phone Unavailable Primary Care Provider Unavailable Encounter Details Date Type Department Care Team Description 06/07/2016 Hospital Encounter HX [facility] Ayden England M.D. 200 [place], [place] [address] (Wo rk) Social History [...] 12/11/2018 relatives? How often do you attend mormonism or buddhist services? Patien t refused 12/11/2018 Do you belong to any clubs or organizations such as Patient refused 12/11/2018 mormonism groups, unions, fraternal or athletic groups, or [...] Results Automated Differential (06/07/2016 10:20 AM CDT) athologist Signature Absolute 2.71 1.70 - POWERCHART [...] X109L Erythrocytes 4.41 3.90 - 5.03 POWERCHART [id number] Hemoglobin 13.3 12.0 - 15.5 POWERCHART GDL [...] Thyroid-Stimulating Hormone-Sensitive (s-TSH) (06/07/2016 10:20 AM CDT) athologist Signature TSH 6.49 (H) 0.27 - [...] 15 MMOLL POWERCHART HXeGFR (MDRD) 60 >=60 [id number] POWERCHART eGFR Black/ >60 >=60 [id number] POWERCHART Specimen (Source) Anatomical Collection Method Collection [...]
--- OUTSIDE RECORDS SUMMARY | 2021-12-15 11:07 | XMS_ITS | Encounter Summary ---
:1960 Author Organization [facility] Address [address] [place] [address] Care Team Providers Name Role Phone Unavailable Primary Care Provider Unavailable Encounter Details Date Type Department Care Team Description 07/25/2016 Hospital Encounter HX [facility] Ayden England M.D. 200 [place], [place] [address] (Wo rk) Social History [...] How often do you attend anglican or jain services? Patien t refused 12/11/2018 [...] Thyroperoxidase (TPO) Antibodies (07/25/2016 11:04 AM CDT) [facility] gist Method Time Signature Thyroperoxidase Ab, 4.9 <9.0 POWERCHART S INTUML Comment: Test Performed by: [facility] [address] [place] [id number] Specimen (Source) Anatomical Collection Method Collection Time [...]
--- OUTSIDE RECORDS SUMMARY | 2021-12-15 11:07 | XMS_ITS | Encounter Summary ---
:1960 Author Organization [facility] Address [address] [place] [address] Care Team Providers Name Role Phone Danica England M.D. Primary Care Provider Encounter Details Date Type Department Care Team Description 10/08/2017 Orders Only Department of Family Shelley England M.D. Medicine, [facility], [address] [place] [address] [place] [address] [place] [address] [place] [address] [phone] Social History Tobacco Use Types Packs/Day Years [...] 12/11/2018 relatives? How often do you attend anabaptism or hindu services? Patien t refused 12/11/2018 Do you belong to any clubs or organizations such as Patient refused 12/11/2018 anabaptism groups, unions, fraternal or athletic groups, or [...] documented as of this encounter Care Teams Batch Heat Treat Operator Relationship Specialty Start Date End Date Danica England M.D. PCP - General 08/10/16 01/26/19 documented as of this encounter
--- OUTSIDE RECORDS SUMMARY | 2021-12-15 11:07 | XMS_ITS | Encounter Summary ---
:1960 Author Organization [facility] Address [address] [place] [address] Care Team Providers Name Role Phone Danica England M.D. Primary Care Provider Encounter Details Date Type Department Care Team Description 01/11/2017 Orders Only Department of Family Danica England Hyp othyroidism Primary Medicine, Larry Velasquez (Primary Dx) Clinic, in [address] [phone] [address] (Work) [phone] Social History Tobacco Use Types Packs/Day Years [...] How often do you attend hoahaoism or mormon services? Patien t refused 12/11/2018 [...] documented as of this encounter Care Teams Wedding Day Coordinator Relationship Specialty Start Date End Date Danica England M.D. PCP - General 08/10/16 01/26/19 documented as of this encounter
--- OUTSIDE RECORDS SUMMARY | 2021-12-15 11:07 | XMS_ITS | Encounter Summary ---
:1960 Author Organization [facility] Address [address] [place] [address] Care Team Providers Name Role Phone Danica England M.D. Primary Care Provider Reason for Visit Reason Comments Med Refill Encounter Details Date Type Department Care Team Description 10/08/2017 Refill Department of Family Medicine, Danica ndiaye M.D. Med Refill [facility], in [address] [place] [address] [place] [address] [place] [address] [place] [address] [phone] Social History Tobacco Use Types Packs/Day Years [...] How often do you attend gnosticist or moravian services? Patien t refused 12/11/2018 [...] documented as of this encounter Care Teams Densitometer Reader Relationship Specialty Start Date End Date Danica England M.D. PCP - General 08/10/16 01/26/19 documented as of this encounter
--- OUTSIDE RECORDS SUMMARY | 2021-12-15 11:07 | XMS_ITS | Encounter Summary ---
:1960 Author Organization [facility] Address [address] [place] [address] Care Team Providers Name Role Phone Unavailable Primary Care Provider Unavailable Encounter Details Date Type Department Care Team Description 07/13/2016 Hospital Encounter HX [facility] FAMILYPRA Shelley England M.D. 200 [place], [place] [address] (Wo rk) Social History [...] England M.D. - 07/13/2016 10:38 AM CDT [id number] CHIEF COMPLAINT/REASON FOR VISIT Abnormal labs. HISTORY [...] the memory care unit in the senior living since 2013. Mother has diabetes mellitus and [...] ENGLAND MD On: 07/19/2016 08:25 AM Source: [facility] MHSDOLBEYNONRADSYS Document Id: [id number] documented in this encounter Miscellaneous Notes Miscellaneous - Desiree Nelson - 12/07/2016 8:40 AM CDT Med Management From: DESIREE NELSON ( [employer] Associate Juvenile Court Judge) To: DANICA ENGLAND MD; Sent: 12/07/2016 08:40:54 CDT Subject: Med Management On hold pending signature Order:sertraline (sertraline 100 mg oral tablet) 2 tab(s) PO Daily Qty: 60 each Refills: 5 Substitutions Allowed Route To SHERPA assistant [address] Source: [facility] [employer] Document Id: [id number] Miscellaneous - Desiree Nelson - 12/07/2016 8:39 AM CDT Med Management From: DESIREE NELSON ( [employer] Associate Juvenile Court Judge) To: DANICA ENGLAND MD; Sent: 12/07/2016 08:39:08 CDT Subject: Med Management On hold pending signature Order:gabapentin (gabapentin 100 mg oral capsule) 3 cap(s) PO Daily Qty: 90 each Refills: 5 Substitutions Allowed Route To Pharmacy [facility] [address] Source: [facility] [employer] Document Id: [id number] Miscellaneous - Desiree Nelson - 12/07/2016 8:38 AM CDT Med Management From: DESIREE NELSON ([facility] Associate Juvenile Court Judge) To: DANICA ENGLAND MD; Sent: 12/07/2016 08:38:21 CDT Subject: Med Management On hold pending signature Order:buPROPion (buPROPion SR 200 mg/12 hour oral sustained release tablet) 1 tab(s) PO 2xDay do notchew or break tablets Qty: 60 each Refills: 5 Route To Pharmacy - [facility] [address] Source: [facility] [employer] Document Id: [id number] Telephone Encounter - Danica England M.D. - 09/11/2016 12:00 AM CDT [id number] Lipid profile reveals total cholesterol 229, LDL 146, significantly improved. Could consider a higher dose of the statin. TSH is slightly suppressed at 0.23. Given the above history will recommend continuing the current dose and recheck her thyroid studies in about 10 weeks. [facility] to [facility] issue. Danica England M.D./melodie Electronically Signed By: DANICA ENGLAND MD On: 09/12/2016 08:18 AM Modified by and Electronically Signed by: DANICA ENGLAND MD On: 09/12/2016 08:18 AM Source: [facility] MHSDOLBEYNONRADSYS Document Id: [id number] Telephone Encounter - Danica England M.D. - 07/26/2016 12:00 AM CDT [id number] TPO antibodies are stable. TSH is modestly elevated. Would recommend following up in clinic to recheck her other health issues and consider other additional thyroid labs. Card is sent to patient in regard to this issue. Danica England M.D./melodie Electronically Signed By: DANICA ENGLAND MD On: 07/27/2016 07:51 AM Source: [facility] MHSDOLBEYNONRADSYS Document Id: [id number] Miscellaneous - Danica England M.D. - 07/13/2016 12:52 PM CDT Ambulatory Patient Summary [address] [id number] Visit Information Name: GEMA JAUREGUI [facility] Number: [id number] Current Date: 07/13/2016 12:52:36 Physicians [...] labs in 10 weeks New Routed to [address] [id number] melatonin (Melatonin 5 mg oral tablet) See Instructions 2 tab(s) PO Bedtime pravastatin (pravastatin 20 mg oral tablet) 1 Tablet(s), Oral, once a day (at bedtime) check labs in10 days, if stable continue medication and recheck labs in 2months New Routed to [facility] [address] [place], [place] [id number] sertraline (sertraline 100 mg oral tablet) 2 [...] if you dont have one. Go to [email or web address] and click on Create Your Account. Then, follow the directions to complete the online form. Youll be asked for your [facility] number which you can find at the top of this document. Your Goals/Additional instructions: Source: [facility] POWERCHART Document Id: [id number] Miscellaneous - Danica England M.D. - 07/13/2016 12:52 PM CDT Ambulatory Discharge Medication List [address] [id number] Visit Information Name: GEMA JAUREGUI [facility] Number: [id number] Current Date: 07/13/2016 12:52:35 Attending [...] labs in 10 weeks New Routed to [address] [id number] melatonin (Melatonin 5 mg oral tablet) See Instructions 2 tab(s) PO Bedtime pravastatin (pravastatin 20 mg oral tablet) 1 Tablet(s), Oral, once a day (at bedtime) check labs in10 days, if stable continue medication and recheck labs in 2months New Routed to [facility] [address] [place], [place] [id number] sertraline (sertraline 100 mg oral tablet) 2 [...] MD Signed On:13-JUL-2016 12:52:28 Additional Information: Source: [facility] [employer] Document Id: [id number] Zach - Danica England M.D. - 07/13/2016 [...] ENGLAND MD - 07/13/2016 12:46 CDT Source: [facility] [employer] Document Id: [id number] CDT!13 Zach - Dominick Bradley L.P.N. - 07/13/2016 10:56 AM CDT Ambulatory Vitals [...] BRADLEY LPN - 07/13/2016 10:56 CDT Source: [facility] [employer] Document Id: [id number] CDT!7 Miscellaneous - Dominick Bradley L.P.NBrigitte - 07/13/2016 10:52 AM CDT Adult Rn Er Intake/History Adult Rn Er Intake/History Entered On: 07/13/2016 10:56 CDT Performed [...] 07/13/2016 10:52 CDT General Info Languages : Argentine Is Patient Female and 13-50 no hysterectomy [...] BRADLEY LPN - 07/13/2016 10:52 CDT Source: [facility] [employer] Document Id: [id number] CDT!27 documented in this encounter Plan of Treatment Not on filedocumented as of this encounter Visit Diagnoses Not on filedocumented in this encounter Additional Health Concerns Assessment Noted Time PHQ-9 Depression Total Score: 3 07/13/2016 12:46 PM CD T documented as of this encounter
--- OUTSIDE RECORDS SUMMARY | 2021-12-15 11:07 | XMS_ITS | Encounter Summary ---
:1960 Author Organization [facility] Address [address] [place] [address] Care Team Providers Name Role Phone Danica England M.D. Primary Care Provider Encounter Details Date Type Department Care Team Description 09/24/2017 Orders Only Department of Family Shelley England M.D. Medicine, [facility], [address] [place] [address] [place] [address] [place] [address] [place] [address] [phone] Social History Tobacco Use Types Packs/Day Years [...] How often do you attend gnosticist or tenriism services? Patien t refused 12/11/2018 [...] documented as of this encounter Care Teams Hse Manager Relationship Specialty Start Date End Date Danica England M.D. PCP - General 08/10/16 01/26/19 documented as of this encounter
--- OUTSIDE RECORDS SUMMARY | 2021-12-15 11:07 | XMS_ITS | Encounter Summary ---
:1960 Author Organization [facility] Address [address] [place] [address] Care Team Providers Name Role Phone Unavailable Primary Care Provider Unavailable Encounter Details Date Type Department Care Team Description 07/25/2016 Hospital Encounter HX [facility] Ayden England M.D. 200 [place], [place] [address] (Wo rk) Social History [...] 12/11/2018 relatives? How often do you attend sabianist or gnosticist services? Patien t refused 12/11/2018 Do you belong to any clubs or organizations such as Patient refused 12/11/2018 sabianist groups, unions, fraternal or athletic groups, or [...] of this encounter Nursing Notes Dominick Bradley L.P.N. - 07/27/2016 7:47 AM CDT Lab 07-25-16 Result card sent per Dr. England. Electronically Signed By: DOMINICK BRADLEY LPN On: 07/27/2016 07:48 AM Source: [employer] Document Id: [id number] Eileen Becker L.PBrigitteNBrigitte - 07/26/2016 9:10 AM CDT lab results 07/25/16 Results card sent, Per Dr. England. Electronically Signed By: EILEEN BECKER LPN On: 07/26/2016 09:11 AM Source: [facility] POWERCHART Document Id: [id number] documented in this encounter Plan of Treatment Not on filedocumented as of this encounter Procedures Procedure Name Priority Date/Time Associated Comments Diagnosis ASPARTATE Routine 07/25/2016 11:04 Results for this AMINOTRANSFERASE (AST), AM CDT proc edure are in S/P the results section. documented in this encounter Results AST (Aspartate Aminotransferase) (07/25/2016 11:04 AM CDT) [facility] gist Method Time Signature Aspartate 39 8 [...]
--- OUTSIDE RECORDS SUMMARY | 2021-12-15 11:07 | XMS_ITS | Encounter Summary ---
:1960 Author Organization [facility] Address [address] [place] [address] Care Team Providers Name Role Phone Danica England M.D. Primary Care Provider Encounter Details Date Type Department Care Team Description 01/25/2017 Orders Only Department of Family Danica England, Beto osure Surveillance Medicine, Larry Velasquez Exam (Primary Dx) Clinic, in [address] [phone] [address] (Work) [phone] Social History Tobacco Use Types Packs/Day Years [...] How often do you attend mandaeism or baptism services? Patien t refused 12/11/2018 [...] documented as of this encounter Care Teams Data Lead Relationship Specialty Start Date End Date Danica England M.D. PCP - General 08/10/16 01/26/19 documented as of this encounter
--- OUTSIDE RECORDS SUMMARY | 2021-12-15 11:07 | XMS_ITS | Encounter Summary ---
:1960 Author Organization [facility] Address [address] [place] [address] Care Team Providers Name Role Phone Unavailable Primary Care Provider Unavailable Encounter Details Date Type Department Care Team Description 03/24/2015 Hospital Encounter HX [facility] FAMILYPRA Ayden England M.D. 200 [place], [place] [address] (Wo rk) Social History [...] How often do you attend sabianism or orthodoxy services? Patien t refused 12/11/2018 Do you [...] Comments Blood Pressure 98/60 03/24/2015 8:59 AM BAGGAGE AGENT SUPERVISOR Pulse 76 03/24/2015 8:59 AM BAGGAGE AGENT SUPERVISOR Temperature - - Respiratory Rate 16 03/24/2015 8:59 AM BAGGAGE AGENT SUPERVISOR Oxygen Saturation - - Inhaled Oxygen Concentration - - Weight 72 kg (158 lb 11.7 oz) 03/24/2015 8:59 AM BAGGAGE AGENT SUPERVISOR Height 166 cm (5' 5.35) 03/24/2015 8:56 AM BAGGAGE AGENT SUPERVISOR Body Mass Index 26.13 03/24/2015 8:56 AM BAGGAGE AGENT SUPERVISOR documented in this encounter Progress Notes Danica England M.D. - 03/24/2015 8:55 AM CST [id number] CHIEF COMPLAINT/REASON FOR VISIT Followup. HISTORY OF [...] in the memory care unit in the residential since 2013. Mother has diabetes mellitus and [...] ENGLAND MD On: 04/09/2015 07:54 AM Source: [facility] MHSDOLBEYNONRADSYS Document Id: [id number] AGE AGENT SUPERVISOR documented in this encounter Nursing Notes Dominick Bradley LBrigitteP.N. - 03/25/2015 12:55 PM CST Labs 03-24-15 Result card sent. Electronically Signed By: DOMINICK BRADLEY LPN On: 03/25/2015 12:55 PM Source: [facility] POWERCHART Document Id: [id number] AGE AGENT SUPERVISOR documented in this encounter Miscellaneous Notes Miscellaneous - Danica England M.D. - 03/24/2015 2:14 PM CST Ambulatory Patient Summary [address] [id number] Visit Information Name: GEMA JAUREGUI [facility] Number: [id number] Current Date: 03/24/2015 14:13:59 Physicians [...] Oral, once a day New Routed to [facility] [address] [place] [address] buPROPion (buPROPion SR 200 mg/12 hour oral [...] Appointments Date Time Location Provider 04/21/2015 08:45 [facility] FamilyPra Danica England MD Attention: Contact your local [...] if you dont have one. Go to [email or web address] and click on Create Your Account. Then, follow the directions to complete the online form. Youll be asked for your [facility] number which you can find at the top of this document. Your Goals/Additional instructions: Source: [facility] POWERCHART Document Id: [id number] AGE AGENT SUPERVISOR Miscellaneous - Danica England M.D. - 03/24/2015 2:13 PM CST Ambulatory Discharge Medication List [address] [id number] Visit Information Name: GEMA JAUREGUI [facility] Number: [id number] Visit Date: 03/24/2015 14:13:58 Attending [...] Oral, once a day New Routed to [facility] [address] [place] [address] buPROPion (buPROPion SR 200 mg/12 hour oral [...] MD Signed On:24-MAR-2015 14:13:48 Additional Information: Source: [facility] [employer] Document Id: [id number] AGE AGENT SUPERVISOR Miscellaneous - Danica England M.D. - 03/24/2015 2:08 PM CST PHQ-9 PHQ-9 Entered On: 03/24/2015 14:08 BAGGAGE AGENT SUPERVISOR Performed On: 03/24/2015 14:08 BAGGAGE AGENT SUPERVISOR by DANICA ENGLAND MD PHQ-9 Little interest [...] difficult DANICA ENGLAND MD - 03/24/2015 14:08 BAGGAGE AGENT SUPERVISOR Source: [facility] [employer] Document Id: [id number] BAGGAGE AGENT SUPERVISOR!13 AGE AGENT SUPERVISOR Miscellaneous - Dominick Bradley L.PBrigitteNBrigitte - 03/24/2015 8:59 AM CST Adult Preboarder Intake/History Adult Preboarder Intake/History Entered On: 03/24/2015 9:01 BAGGAGE AGENT SUPERVISOR Performed On: 03/24/2015 8:59 BAGGAGE AGENT SUPERVISOR by DOMINICK BRADLEY LPN Intake Chief Complaint [...] oz) Dosing Weight Clinic : 72 kg DOMINICK BRADLEY LPN - 03/24/2015 8:59 BAGGAGE AGENT SUPERVISOR General Info Languages : Cameroonian Is Patient Female and 13-50 no hysterectomy : No MADHAVGOKULDOMINICK RIGOBERTO AYERS - 03/24/2015 8:59 BAGGAGE AGENT SUPERVISOR Subjective Pain Symptoms : No MADHAV DOMINICK RIGOBERTO AYERS - 03/24/2015 8:59 BAGGAGE AGENT SUPERVISOR Dependent Habits Exposure to Tobacco Smoke : Other: former Smoking Status : Former smoker Tobacco 2A : Yes Tobacco Use/Currently Using : No Tobacco Use/Last 30 Days : No Tobacco Use/Last 12 months : No DOMINICK BRADLEY LPN - 03/24/2015 8:59 BAGGAGE AGENT SUPERVISOR Source: [facility] POWERCHART Document Id: [id number] BAGGAGE AGENT SUPERVISOR!25 AGE AGENT SUPERVISOR documented in this encounter Plan of Treatment Not on filedocumented as of this encounter Procedures Procedure Name Priority Date/Time Associated Comments Diagnosis THYROPEROXIDASE (TPO) Routine 03/24/2015 9:25 Res ults for this ABS, S AM BAGGAGE AGENT SUPERVISOR procedure are i n the results section. documented in this encounter Results Thyroperoxidase (TPO) Antibodies (03/24/2015 9:25 AM BAGGAGE AGENT SUPERVISOR) [facility] gist Method Time Signature Thyroperoxidase Ab, 2.5 <9.0 POWERCHART S INTUML Comment: Test Performed by: [place] [address] Door Liner: Enzo Ricci II, M.D., Ph.D. Specimen (Source) Anatomical Collection Method Collection Time Re ceived Time Location / / Volume Laterality Blood 03/24/2015 9:25 AM BAGGAGE AGENT SUPERVISOR Danica England M.D. LAB BLOOD ADD-ON Performing Organization Address City/State/ZIP Code Phon e Number POWERCHART documented in this encounter Visit Diagnoses Not on filedocumented in this encounter Additional Health Concerns Assessment Noted Time PHQ-9 Depression Total Score: 8 03/24/2015 2:08 PM BAGGAGE AGENT SUPERVISOR documented as of this encounter
--- OUTSIDE RECORDS SUMMARY | 2021-12-15 11:07 | XMS_ITS | Encounter Summary ---
:[address] [facility] Address [address] [place] [address] Care Team Providers Name Role Phone Danica England M.D. Primary Care Provider Encounter Details Date Type Department Care Team Description 12/26/2016 Orders Only Department of Family Shelley England M.D. [facility], [address], [address] [place] [address] [place] [address] Social History Tobacco Use [...] How often do you attend confucianist or advent services? Patien t refused 12/11/2018 [...] TSH, Sensitive 0.8 0.3 - 4.2 09/20/2017 [facility] mIU/L 1:38 PM T [facility] Comment: Biotin has been identified by the iraj felix as a potential interfering substance. ??Higher concentr ations of biotin may be found in multivitamins, hair/nail supple ments, and workout supplements. ??If the result does not [facility] clinical observations, repeat testing after patient refrains fr om the use of supplements for at least 12 hours. Specimen Anatomical Collection Method Collection Time Receive d Time (Source) Location / / Volume Laterality Blood 09/20/2017 10:14 09/20/2017 AM CDT 12:55 PM CDT Danica England M.D. LAB BLOOD ADD-ON Performing Organization Address City/State/ZIP Code Phon e Number [facility] [address] [place] [address] LAB documented in this encounter Visit Diagnoses Diagnosis Hypothyroidism documented in this encounter Additional Health Concerns Assessment Noted Time PHQ-9 Depression Total Score: 3 07/13/2016 12:46 PM CD T documented as of this encounter Care Teams Central Supply Nurse Relationship Specialty Start Date End Date Danica England M.D. PCP - General 08/10/16 01/26/19 documented as of this encounter
--- OUTSIDE RECORDS SUMMARY | 2021-12-15 11:07 | XMS_ITS | Encounter Summary ---
:1960 Author Organization [facility] Address [address] [place] [address] Care Team Providers Name Role Phone Unavailable Primary Care Provider Unavailable Encounter Details Date Type Department Care Team Description 03/11/2015 Hospital Encounter HX [facility] Ayden Luna M.D. [address] [place], [place] [address] (Wo rk) Social History [...] How often do you attend sabianism or cheondoism services? Patien t refused 12/11/2018 [...] 166 cm (5' 5.35) 03/11/2015 3:27 PM PROGRAM HOST Body Mass Index - - documented in this encounter Nursing Notes Dominick Bradley, L.P.N. - 03/12/2015 4:42 PM CST US Abd 03-11-15 Result card sent. Electronically Signed By: DOMINICK BRADLEY LPN On: 03/12/2015 04:42 PM Source: [facility] POWERCHART Document Id: [id number] RAM HOST documented in this encounter Plan of Treatment Not on filedocumented as of this encounter Procedures Procedure Name Priority Date/Time Associated Diagnosis Comme nts US ABDOMEN COMPLETE Routine 03/11/2015 3:30 PM Re sults for this PROGRAM HOST procedure are i n the results section. documented in this encounter Results US Abdomen Complete (03/11/2015 3:30 PM PROGRAM HOST) Anatomical Region Laterality Modality Abdomen N/A Ultrasound Specimen (Source) Anatomical Collection Method Collection Time Re ceived Time Location / / Volume Laterality 03/11/2015 3:30 PM PROGRAM HOST Addenda Addendum by Provider, Eva Mcneill 03/11/2015 3:30 PM PROGRAM HOST RAD^^^OW US Abdomen Complete 03/11/2015 15:30:00 Impressions 03/11/2015 4:13 PM PROGRAM HOST No findings to explain abdominal pain and [...] ??Normal where seen. Narrative 03/11/2015 4:13 PM PROGRAM HOST EXAM: ??US Abdomen Complete INDICATION: abdominal pain,nausea [...] IVC: Normal where seen. Gela Fine R.V.T., DelmreSBrigitte IMG US PROCEDURES documented in this encounter Visit Diagnoses Not on filedocumented in this encounter Additional Health Concerns Assessment Noted Time PHQ-9 Depression Total Score: 4 07/27/2014 12:26 PM CD T documented as of this encounter
--- OUTSIDE RECORDS SUMMARY | 2021-12-15 11:07 | XMS_ITS | Encounter Summary ---
:1960 Author Organization [facility] Address [address] [place] [address] Care Team Providers Name Role Phone Danica England M.D. Primary Care Provider Reason for Visit Reason Comments Med Refill Encounter Details Date Type Department Care Team Description 07/02/2017 Refill Department of Family Medicine, Danica ndiaye M.D. Med Refill [facility], in [address] [place] [address] [place] [address] [place] [address] [place] [address] [phone] Social History Tobacco Use Types Packs/Day Years [...] How often do you attend taoism or sikh services? Patien t refused 12/11/2018 [...] documented as of this encounter Care Teams Historical Archeologist Relationship Specialty Start Date End Date Danica England M.D. PCP - General 08/10/16 01/26/19 documented as of this encounter
--- OUTSIDE RECORDS SUMMARY | 2021-12-15 11:07 | XMS_ITS | Encounter Summary ---
:1960 Author Organization [facility] Address [address] [place] [address] Care Team Providers Name Role Phone Unavailable Primary Care Provider Unavailable Encounter Details Date Type Department Care Team Description 06/06/2016 Hospital Encounter HX [facility] Leila Hirsch, PLUG PASTER, C.N.P. [address] [place], [place] [address] (Wo rk) Social History [...] Ordered: OV Est Pt Level 3 - 15643 - 15 min Depression Major Recurrent Moderate Stable on bupropion SR 200 milligrams, 1 twice daily. PHQ-9 score today 4. Ordered: OV Est Pt Level 3 - 63713 - 15 min Encounter for screening mammogram for malignant neoplasm of breast Ordered: MA Mammo Screening w/ CADD OV Est Pt Prev 40-64 - 13552 General Medical Exam Adult (GME) Continue to work on healthy diet and regular exercise program. I will mail laboratory results. Return for complete physical exam and mammogram in one year. Ordered: OV Est Pt Prev 40-64 - 96084 Hyperlipidemia Mixed She will return for fasting lipids. Will discuss return to statin therapy if indicated. Ordered: OV Est Pt Level 3 - 80000 - 15 min Iron Deficiency Anemia Screening Exam Ordered: OV Est Pt Prev 40-64 - 94667 Screening Exam Diabetes Mellitus Ordered: OV Est Pt Prev 40-64 - 53389 Screening Exam For Thyroid Disorder Ordered: OV Est Pt Prev 40-64 - 68461 Orders: buPROPion, 200 mg = 1 tab(s), PO, 2xDay, do not chew or break tablets, # 60 each, 5 Refill(s), Pharmacy: [facility] [address] gabapentin, 300 mg = 3 cap(s), PO, Daily, # 90 each, 5 Refill(s), Maintenance, Pharmacy: [facility] [address] sertraline, 200 mg = 2 tab(s), PO, Daily, # 60 each, 5 Refill(s), Maintenance, Pharmacy: [facility] [address] AST Basic Metabolic Panel, Fasting* CBC (includes Auto Differential) Lipid Panel* Return Visit Fam Med Extended Thyroid Stimulating Hormone Electronically Signed By: LEILA HIRSCH APRN, CNP On: 06/06/2016 02:00 PM Source: [facility] POWERCHART Document Id: [id number] documented in this encounter Nursing Notes Leila [...] in this age group Every visit ?? [phone] [facility], [address] [place] [address], [place] [address]. All rights reserved. This information is not intended as a substitute for professional medical care. Always follow your healthcare professional's instructions. Source: [facility] POWERCHART Document Id: [id number] documented in this encounter Miscellaneous Notes Miscellaneous - Meri Morataya L.P.NBrigitte - 06/06/2016 1:31 PM CDT PHQ-9 PHQ-9 [...] MORATAYA LPN - 06/06/2016 13:31 CDT Source: [facility] Document Id: [id number] CDT!13 Miscellaneous - Leila Hirsch APRN, C.N.P. - 06/06/2016 1:29 PM CDT Ambulatory Patient Summary [facility] [address] [place] [id number] Visit Information Name: ANTONINA JAUREGUI [facility] Number: [id number] Current Date: 06/06/2016 13:29:34 Physicians Attending Provider: LEILA HIRSCH APRN [facility] Primary Care Provider: MELINDA REYES MD ANTONINA [...] tablets This is a CHANGE Routed to [facility] [address] [place], [place] [id number] gabapentin (gabapentin 100 mg oral capsule) 3 cap, Oral, once a day Routed to [facility] [address] [place], [place] [phone] melatonin (Melatonin 5 mg oral tablet) See Instructions 2 tab(s) PO Bedtime sertraline (sertraline 100 mg oral tablet) 2 Tablet(s), Oral, once a day Routed to [facility] [address] [place], [place] [phone] Stop Taking the Following Medications: Medication list [...] in this age group Every visit ?? [phone] [facility], [address] [place] [address]. All rights reserved. This information is not [...] if you dont have one. Go to [email or web address] and click on Create Your Account. Then, follow the directions to complete the online form. Youll be asked for your [facility] number which you can find at the top of this document. Your Goals/Additional instructions: Source: [facility] POWERCHART Document Id: [id number] Miscellaneous - Leila Hirsch APRN, C.N.P. - 06/06/2016 1:29 PM CDT Ambulatory Discharge Medication List [address] [id number] Visit Information Name: ANTONINA JAUREGUI [facility] Number: [id number] Current Date: 06/06/2016 13:29:34 Attending [...] tablets This is a CHANGE Routed to [facility] [address] [place], [place] [phone] gabapentin (gabapentin 100 mg oral capsule) 3 cap, Oral, once a day Routed to [facility] [address] [place], [place] [phone] melatonin (Melatonin 5 mg oral tablet) See Instructions 2 tab(s) PO Bedtime sertraline (sertraline 100 mg oral tablet) 2 Tablet(s), Oral, once a day Routed to [facility] [address] [place], [place] [phone] Stop Taking the Following Medications: Medication list [...] CNP Signed On:06-JUN-2016 13:29:12 Additional Information: Source: [facility] POWERCHART Document Id: [id number] Miscellaneous - Meri Morataya L.P.N. - 06/06/2016 1:04 PM CDT Adult Field Operator Intake/History Document Has Been Updated Adult Field Operator Intake/History Entered On: 06/06/2016 13:07 CDT Performed [...] Preferred Communication Mode : Verbal Languages : Thai Is Patient Female and 13-50 no hysterectomy [...] 2012 Alcohol Use : No MERI MORATAYA LPN - 06/06/2016 13:04 CDT Source: [facility] Document Id: [id number] CDT!4 Miscellaneous - Meri Morataya L.PBrigitteNBrigitte - [...] Risk Factors by History Adult : None HOODMERI CHANDRAKANT AYERS - 06/06/2016 13:01 CDT Functional Current Daily [...] Use/Year : 2012 Alcohol Use : No RONISHOBHAMERI Hunter CHANDRAKANT AYERS - 06/06/2016 13:01 CDT Psychosocial Domestic Abuse Concerns : None Behavioral Health Screen/Safety Assmt : No Buddhist Preference : Unknown HOOD MERIRICK STALLINGS LPN - 06/06/2016 13:01 CDT Advance Directive Advanced Directives : No Advance Directive Additional Information : No RONIDEEPTHI MERI CHANDRAKANT AYERS - 06/06/2016 13:01 CDT Educ Needs Learning Style Preference Adult Grid Patient : Printed materials, Verbal explanation Family : Verbal explanation, Printed materials RONISHOBHAMERI HunterRadames AYERS - 06/06/2016 13:01 CDT [facility] Document Id: [id number] CDT!29 documented in this encounter Plan of [...] s. Narrative 06/07/2016 9:16 AM CDT EXAM: [place] Mammo Screening w/ CADD INDICATION: screen COMPARISON: 02/23/2010, 11/24/2008, 008 FINDINGS: Heterogeneously dense breast p arenchyma bilaterally. ??Breast density diminishes mammographic sensitiv ity for detection of malignancy. ?? Procedure Note Tani Oseguera M.D. / Provider, Edith hu M.D. - 08/14/2016 EXAM: [place] Mammo Screening w/ CADD INDICATION: screen COMPARISON: [...] in the setting of a palpable abnormality. Luca kwon false negative rate of mammography is approximately [...]
--- OUTSIDE RECORDS SUMMARY | 2021-12-15 11:07 | XMS_ITS | Encounter Summary ---
:1960 Author Organization [facility] Address [address] [place] [address] Care Team Providers Name Role Phone Danica England M.D. Primary Care Provider Reason for Visit Reason Comments Med Refill Encounter Details Date Type Department Care Team Description 09/24/2017 Refill Department of Family Medicine, Danica ndiaye M.D. Med Refill [facility], in [address] [place] [address] [place] [address] [place] [address] [place] [address] [phone] Social History Tobacco Use Types Packs/Day Years [...] How often do you attend temple or yazdanism services? Patien t refused 12/11/2018 [...] as of this encounter Care Teams Manager Primary Relationship Specialty Start Date End Date Danica England M.D. PCP - General 08/10/16 01/26/19 documented as of this encounter
--- OUTSIDE RECORDS SUMMARY | 2021-12-15 11:07 | XMS_ITS | Encounter Summary ---
:1960 Author Organization [facility] Address [address] [place] [address] Care Team Providers Name Role Phone Unavailable Primary Care Provider Unavailable Encounter Details Date Type Department Care Team Description 06/07/2016 Hospital Encounter HX [facility] Ayden England M.D. [address] [place], [place] [address] (Wo rk) Social History [...] How often do you attend baptism or anabaptism services? Patien t refused 12/11/2018 [...] 5:09 PM CDT From: LEILA LEE APRN SNUFF BLENDER To: GEMA JAUREGUI Sent: 06/07/2016 17:09:52 CDT Gema, Your cholesterol [...] 2.25 x10(9)/L (0.90 - 2.90) 06/07/2016 10:20 [place] Absolute 0.41 x10(9)/L (0.30 - 0.90) 06/07/2016 10:20 Eos Absolute 0.06 x10(9)/L (0.05 - 0.50) 06/07/2016 10:20 Baso Absolute 0.03 x10(9)/L (0.00 - 0.30) Source: [facility] POWERCHART Document Id: [id number] Electronically signed by Conversion, [facility] [id number] at 08/08/2016 5:53 AM CDT documented in [...] AST (Aspartate Aminotransferase) (06/07/2016 10:20 AM CDT) [facility] gist Method Time Signature Aspartate 31 8 [...] FH and FDB is available mariana arguello [facility]: FH/ADH Genetic Reflex [place]anan el (test ADHP). Acquired (non-genetic) causes of markedly increased LDL cholesterol include cholestatic liver disease due to the presence of LpX. If a genetic form of hypercholesterolemia is suspected, family studies including biochemical testing fo r lipids (total cholesterol,triglycerides, LDL cholesterol and HDL cholesterol) are recommended. ??Please contact the laboratory at or the on-line test catalog at [employer] for information about how to order these [...]
--- OUTSIDE RECORDS SUMMARY | 2021-12-15 11:07 | XMS_ITS | Encounter Summary ---
:1960 Author Organization [facility] Address [address] [place] [address] Care Team Providers Name Role Phone Danica England M.D. Primary Care Provider Encounter Details Date Type Department Care Team Description 09/03/2017 Orders Only Department of Family Shelley England M.D. Medicine, [facility], [address] [place] [address] [place] [address] [place] [address] [place] [address] [phone] Social History Tobacco Use Types Packs/Day Years [...] How often do you attend yazidi or yarsanism services? Patien t refused 12/11/2018 [...] documented as of this encounter Care Teams Marketing Research Coordinator Relationship Specialty Start Date End Date Danica England M.D. PCP - General 08/10/16 01/26/19 documented as of this encounter
--- OUTSIDE RECORDS SUMMARY | 2021-12-15 11:07 | XMS_ITS | Encounter Summary ---
:1960 Author Organization [facility] Address [address] [place] [address] Care Team Providers Name Role Phone Danica England M.D. Primary Care Provider Reason for Visit Reason Comments Med Refill Encounter Details Date Type Department Care Team Description 01/11/2017 Refill Department of Family Medicine, Danica ndiaye M.D. Med Refill [facility], in [address] [place] [address] [place] [address] [place] [address] [place] [address] [phone] Social History Tobacco Use Types Packs/Day Years [...] How often do you attend islam or faith services? Patien t refused 12/11/2018 [...] documented as of this encounter Care Teams Hard Hat Diver Relationship Specialty Start Date End Date Danica England M.D. PCP - General 08/10/16 01/26/19 documented as of this encounter
--- OUTSIDE RECORDS SUMMARY | 2021-12-15 11:07 | XMS_ITS | Encounter Summary ---
:1960 Author Organization [facility] Address [address] [place] [address] Care Team Providers Name Role Phone Danica England M.D. Primary Care Provider Encounter Details Date Type Department Care Team Description 07/02/2017 Orders Only Department of Family Shelley England M.D. Medicine, [facility], [address] [place] [address] [place] [address] [place] [address] [place] [address] [phone] Social History Tobacco Use Types Packs/Day Years [...] How often do you attend bahai or baptist services? Patien t refused 12/11/2018 [...] documented as of this encounter Care Teams Lug Loader Relationship Specialty Start Date End Date Danica England M.D. PCP - General 08/10/16 01/26/19 documented as of this encounter
--- OUTSIDE RECORDS SUMMARY | 2021-12-15 11:07 | XMS_ITS | Encounter Summary ---
:1960 Author Organization [facility] Address [address] [place] [address] Care Team Providers Name Role Phone Danica England M.D. Primary Care Provider Encounter Details Date Type Department Care Team Description 09/20/2017 Hospital Encounter Department of Danica England, [place] [facility] Medicine in [place] [address] [place] [address] [place] [address] Social History Tobacco Use Types Packs/Day [...] How often do you attend orthodox or sikh services? Patien t refused 12/11/2018 [...] TSH, Sensitive 0.8 0.3 - 4.2 09/20/2017 [facility] mIU/L 1:38 PM CDT [facility] Comment: Biotin has been identified by the iraj felix as a potential interfering substance. ??Higher concentr ations of biotin may be found in multivitamins, hair/nail supple ments, and workout supplements. ??If the result does not ma [facility] clinical observations, repeat testing after patient refrains fr om the use of supplements for at least 12 hours. Specimen Anatomical Collection Method Collection Time Receive d Time (Source) Location / / Volume Laterality Blood 09/20/2017 10:14 09/20/2017 AM CDT 12:55 PM CDT Danica England M.D. LAB BLOOD ADD-ON Performing Organization Address City/State/ZIP Code Phon e Number [facility] [address] [place] [address] LAB documented in this encounter Visit Diagnoses Diagnosis Hypothyroidism documented in this encounter Additional Health Concerns Assessment Noted Time PHQ-9 Depression Total Score: 3 07/13/2016 12:46 PM CD T documented as of this encounter Care Teams Chief Lifestyle Officer Relationship Specialty Start Date End Date Danica England M.D. PCP - General 08/10/16 01/26/19 documented as of this encounter
--- OUTSIDE RECORDS SUMMARY | 2021-12-15 11:07 | XMS_ITS | Encounter Summary ---
:1960 Author Organization [facility] Address [address] [place] [address] Care Team Providers Name Role Phone Danica England M.D. Primary Care Provider Reason for Visit Reason Comments Med Refill Encounter Details Date Type Department Care Team Description 10/08/2017 Refill Department of Family Medicine, Danica ndiaye M.D. Med Refill [facility], in [address] [place] [address] [place] [address] [place] [address] [place] [address] [phone] Social History Tobacco Use Types Packs/Day Years [...] How often do you attend yarsanism or jain services? Patien t refused 12/11/2018 [...] documented as of this encounter Care Teams Hem Inspector Relationship Specialty Start Date End Date Danica England M.D. PCP - General 08/10/16 01/26/19 documented as of this encounter
--- OUTSIDE RECORDS SUMMARY | 2021-12-15 11:07 | XMS_ITS | Encounter Summary ---
:1960 Author Organization [facility] Address [address] [place] [address] Care Team Providers Name Role Phone Danica England M.D. Primary Care Provider Encounter Details Date Type Department Care Team Description 09/11/2016 Hospital Encounter HX [facility] Ayden England M.D. 200 [place], [place] [address] (Wo rk) Social History [...] How often do you attend worship or spiritism services? Patien t refused 12/11/2018 [...] documented as of this encounter Care Teams Goggles Assembler Relationship Specialty Start Date End Date Danica England M.D. PCP - General 08/10/16 01/26/19 documented as of this encounter
--- OUTSIDE RECORDS SUMMARY | 2021-12-15 11:07 | XMS_ITS | Encounter Summary ---
:1960 Author Organization [facility] Address [address] [place] [address] Care Team Providers Name Role Phone Danica England M.D. Primary Care Provider Encounter Details Date Type Department Care Team Description 11/01/2017 Hospital Encounter Department of Danica England Routine Screening Radiology in [place] Breast Exam [address] [place] [address] Social History Tobacco Use Types Packs/Day [...] 12/11/2018 relatives? How often do you attend mu-ism or church services? Patien t refused 12/11/2018 Do you belong to any clubs or organizations such as Patient refused 12/11/2018 mu-ism groups, unions, fraternal or athletic groups, or [...] BILATERAL Current study was evaluated with a [employer] Aided Detection (CAD) system. INDICATION: ??Screening mammogram. COMPARISON: ??Prior exams were available for comparison. DENSITY: ??c. The breast(s) are heteroge neously dense, which may obscure small masses. FINDINGS: ??No mammographic findings of malignancy. Procedure Note Tani Oseguera M.D. - 11/01/2017Forma tting of this note might be different from the original. EXAM: BI BREAST SCREENING BILATERAL Current study was evaluated with a [employer] Aided Detection (CAD) system. INDICATION: Screening mammogram. [...] documented as of this encounter Care Teams Aquatic Laborer Relationship Specialty Start Date End Date Danica England M.D. PCP - General 08/10/16 01/26/19 documented as of this encounter
--- OUTSIDE RECORDS SUMMARY | 2021-12-15 11:08 | XMS_ITS | Encounter Summary ---
:1960 Author Organization [facility] Address [address] [place] [address] Care Team Providers Name Role Phone Unavailable Primary Care Provider Unavailable Encounter Details Date Type Department Care Team Description 03/10/2015 Hospital Encounter HX [facility] FB[facility] FAMILYPRA Ayden England M.D. 200 [place], [place] [address] (Wo rk) Social History [...] often do you attend jehovah's witness or christianity services? Patien t refused 12/11/2018 [...] Comments Blood Pressure 102/60 03/10/2015 10:25 AM ULTRASONIC SOLDERER Pulse 72 03/10/2015 10:25 AM ULTRASONIC SOLDERER Temperature - - Respiratory Rate 16 03/10/2015 10:25 AM ULTRASONIC SOLDERER Oxygen Saturation - - Inhaled Oxygen Concentration - - Weight 74 kg (163 lb 2.3 oz) 03/10/2015 10:25 AM ULTRASONIC SOLDERER Height 166 cm (5' 5.35) 03/10/2015 10:17 AM ULTRASONIC SOLDERER Body Mass Index 26.85 03/10/2015 10:17 AM ULTRASONIC SOLDERER documented in this encounter Progress Notes Danica England M.D. - 03/10/2015 10:16 AM CST [id number] CHIEF COMPLAINT/REASON FOR VISIT Fatigue. HISTORY OF [...] in the memory care unit in the care home since 2013. Mother has diabetes mellitus [...] ENGLAND MD On: 03/12/2015 07:33 PM Source: [facility] MHSDOLBEYNONRADSYS Document Id: [id number] ASONIC SOLDERER documented in this encounter Miscellaneous Notes Miscellaneous - Danica England M.D. - 03/10/2015 7:35 PM CST Ambulatory Patient Summary [address] [id number] Visit Information Name: GEMA JAUREGUI [facility] Number: [id number] Current Date: 03/10/2015 19:35:09 Physicians [...] if you dont have one. Go to [email or web address] and click on Create Your Account. Then, follow the directions to complete the online form. Youll be asked for your [facility] number which you can find at the top of this document. Your Goals/Additional instructions: Source: [facility] POWERCHART Document Id: [id number] ASONIC SOLDERER Miscellaneous - Danica England M.D. - 03/10/2015 7:35 PM CST Ambulatory Discharge Medication List [address] [id number] Visit Information Name: GEMA JAUREGUI [facility] Number: [id number] Visit Date: 03/10/2015 19:35:08 Attending [...] MD Signed On:10-MAR-2015 19:34:58 Additional Information: Source: [facility] POWERCHART Document Id: [id number] ASONIC SOLDERER Miscellaneous - Dominick Bradley L.P.N. - 03/10/2015 10:25 AM CST Adult Inside Sales Supervisor Intake/History Adult Inside Sales Supervisor Intake/History Entered On: 03/10/2015 10:28 ULTRASONIC SOLDERER Performed On: 03/10/2015 10:25 ULTRASONIC SOLDERER by DOMINICK BRADLEY LPN Intake Chief Complaint [...] kg DOMINICK BRADLEY LPN - 03/10/2015 10:25 ULTRASONIC SOLDERER General Info Languages : Malay Is Patient Female and 13-50 no hysterectomy : No DOMINICK BRADLEY LPN - 03/10/2015 10:25 ULTRASONIC SOLDERER Subjective Pain Symptoms : No DOMINICK BRADLEY LPN - 03/10/2015 10:25 ULTRASONIC SOLDERER Dependent Habits Exposure to Tobacco Smoke : Other: former Smoking Status : Former smoker Tobacco 2A : Yes Tobacco Use/Currently Using : No Tobacco Use/Last 30 Days : No Tobacco Use/Last 12 months : No DOMINICK BRADLEY LPN - 03/10/2015 10:25 ULTRASONIC SOLDERER Source: [facility] POWERCHART Document Id: [id number] ULTRASONIC SOLDERER!25 ASONIC SOLDERER documented in this encounter Plan of Treatment Not on filedocumented as of this encounter Procedures Procedure Name Priority Date/Time Associated Diagnosis Comme nts HEPATIC FUNCTION Routine 03/10/2015 10:50 AM Resu lts for this PANEL, S ULTRASONIC SOLDERER procedure are i n the results section. AUTOMATED Routine 03/10/2015 10:50 AM Results for this DIFFERENTIAL, B ULTRASONIC SOLDERER procedure ar e in the results section. CBC WITH Routine 03/10/2015 10:50 AM Results for this DIFFERENTIAL, B ULTRASONIC SOLDERER procedure ar e in the results section. THYROID-STIMULATING Routine 03/10/2015 10:50 AM R esults for this HORMONE-SENSITIVE ULTRASONIC SOLDERER procedure are in (S-TSH) the results section. LIPASE, S/P Routine 03/10/2015 10:50 AM Results for this ULTRASONIC SOLDERER procedure are i n the results section. AMYLASE, TOT, S Routine 03/10/2015 10:50 AM Resul ts for this ULTRASONIC SOLDERER procedure are i n the results section. BASIC METABOLIC Routine 03/10/2015 10:50 AM Resul ts for this PANEL, S/P ULTRASONIC SOLDERER procedure are i n the results section. documented in this encounter Results Automated Differential (03/10/2015 10:50 AM ULTRASONIC SOLDERER) P athologist Signature Absolute 3.38 1.70 - POWERCHART Neutrophils 7.00 109L Lymphocytes 2.09 0.90 - POWERCHART 2.90 X109L Monocytes 0.59 0.30 - POWERCHART 0.90 X109L Eosinophils 0.08 0.05 - POWERCHART 0.50 X109L Absolute 0.03 0.00 - POWERCHART Basophil 0.30 X109L Specimen Anatomical Collection Method Collection Time Receive d Time (Source) Location / / Volume Laterality Blood 03/10/2015 10:50 03/10/2015 AM ULTRASONIC SOLDERER 10:50 AM ULTRASONIC SOLDERER Danica England M.D. LAB BLOOD ADD-ON Performing Organization Address City/State/ZIP Code Phon e Number POWERCHART CBC with Differential (03/10/2015 10:50 AM ULTRASONIC SOLDERER) P athologist Signature Leukocytes 6.2 3.4 - 10.5 POWERCHART X109L Erythrocytes 4.41 3.90 - 5.03 POWERCHART [id number] Hemoglobin 12.8 12.0 - 15.5 POWERCHART GDL Hematocrit 39.9 34.9 - 44.5 POWERCHART MCV 90.5 82.0 - 98.0 POWERCHART FL HX RDW 13.8 11.9 - 15.5 POWERCHART Platelet Count 239 150 - 450 POWERCHART X109L Specimen (Source) Anatomical Collection Method Collection Time Re ceived Time Location / / Volume Laterality Blood 03/10/2015 10:50 AM ULTRASONIC SOLDERER Danica England M.D. LAB BLOOD ADD-ON Performing Organization Address City/State/ZIP Code Phon e Number POWERCHART Lipase (03/10/2015 10:50 AM ULTRASONIC SOLDERER) P athologist Signature Lipase, S 34 10 - 73 UL POWERCHART Specimen (Source) Anatomical Collection Method Collection Time Re ceived Time Location / / Volume Laterality Blood 03/10/2015 10:50 AM ULTRASONIC SOLDERER Danica England M.D. LAB BLOOD ADD-ON Performing Organization Address City/State/ZIP Code Phon e Number POWERCHART Amylase, Total (03/10/2015 10:50 AM ULTRASONIC SOLDERER) P athologist Signature Amylase, Total, 79 26 - 128 POWERCHART S UNITL Specimen (Source) Anatomical Collection Method Collection Time Re ceived Time Location / / Volume Laterality Blood 03/10/2015 10:50 AM ULTRASONIC SOLDERER Danica England M.D. LAB BLOOD ADD-ON Performing Organization Address City/State/ZIP Code Phon e Number POWERCHART Hepatic Function Panel (03/10/2015 10:50 AM ULTRASONIC SOLDERER) Patholo gist Method Time Signature Alkaline 82 [...] / Volume Laterality Blood 03/10/2015 10:50 AM ULTRASONIC SOLDERER Danica England M.D. LAB BLOOD ADD-ON Performing Organization Address City/State/ZIP Code Phon e Number POWERCHART BMP (Basic Metabolic Panel) (03/10/2015 10:50 AM ULTRASONIC SOLDERER) P athologist Signature Anion Gap 12 7 [...] POWERCHART MMOLL HXeGFR (MDRD) >60 >=60 POWERCHART [id number] eGFR >60 >=60 POWERCHART Black/ [id number] Iranian Specimen (Source) Anatomical Collection Method Collection Time Re ceived Time Location / / Volume Laterality Blood 03/10/2015 10:50 AM ULTRASONIC SOLDERER Danica England M.D. LAB BLOOD ADD-ON Performing Organization Address City/State/ZIP Code Phon e Number POWERCHART (ABNORMAL) Thyroid-Stimulating Hormone-Sensitive (s-TSH) (03/10/2015 10:50 AM ULTRASONIC SOLDERER) P athologist Signature TSH 4.28 (H) 0.27 - POWERCHART (Thyrotropin) 4.20 MIUL Specimen (Source) Anatomical Collection Method Collection Time Re ceived Time Location / / Volume Laterality Blood 03/10/2015 10:50 AM ULTRASONIC SOLDERER Danica England M.D. LAB BLOOD ADD-ON Performing Organization Address City/State/ZIP Code Phon e Number POWERCHART documented in this encounter Visit Diagnoses Not on filedocumented in this encounter Additional Health Concerns Assessment Noted Time PHQ-9 Depression Total Score: 4 07/27/2014 12:26 PM CD T documented as of this encounter
--- OUTSIDE RECORDS SUMMARY | 2021-12-15 11:08 | XMS_ITS | Encounter Summary ---
:1960 Author Organization [facility] Address [address] [place] [address] Care Team Providers Name Role Phone Unavailable Primary Care Provider Unavailable Encounter Details Date Type Department Care Team Description 05/31/2012 Hospital Encounter HX [facility] FBHB FAMILYPRA Ayden England M.D. 200 [place], [place] [address] (Wo rk) Social History [...] How often do you attend yazdanism or episcopalian services? 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 - 05/31/2012 4:03 PM CDT [id number] CHIEF COMPLAINT/REASON FOR VISIT Medication check HISTORY [...] Health Unit where her daughters go in [place] and is wondering if they will arrange for colonoscopy. She was under the impression that the [facility] would be able to provide this service. [...] Has been advised to [place] and this has not occurred. Please see [...] to go to [facility] in [place] in the near future. Pap smear: 03/09/2011. [...] Sunday the . Follow up with her [facility] as planned. If they are unable to arrange colonoscopy for her [facility] which would be more convenient as that is where she lives, she will contact who will arrange evaluation with Dr. Marquis, [...] ENGLAND MD On: 06/05/2012 03:06 PM Source: [facility] MHSDOLBEYNONRADSYS Document Id: [id number] documented in this encounter Miscellaneous Notes Miscellaneous [...] Patient ( ) ( ) Call for Seamer Operator ( ) Follow up on Results ( ) Other: PROVIDER: ( ) Call Physician ( ) Call Pharmacist ( ) Call Lab ( ) Other: Special Instructions: Comments: Source: [facility] POWERCHART Document Id: [id number] Electronically signed by Cayetano [facility] Oracle Specialist [id number] at 07/26/2016 6:15 AM CDT Telephone Encounter - Danica England M.D. - 06/03/2012 12:00 AM CDT [id number] Patient's cholesterol is elevated. Would recommend following [...] ENGLAND MD On: 06/05/2012 01:42 PM Source: [facility] MHSDOLBEYNONRADSYS Document Id: [id number] Miscellaneous - Danica England M.D. - 05/31/2012 4:58 PM CDT Ambulatory Depart Summary [address] [facility] [place] [address] Visit Information Name: GEMA JAUREGUI [facility] Number: [id number] Visit Date: 05/31/2012 16:58:58 Attending [...] your provider for clarification. Additional Information: Source: [facility] POWERCHART Document Id: [id number] Zach - Danica England M.D. - 05/31/2012 4:58 PM CDT Ambulatory Patient Summary [id number] [facility] [place] [address] Visit Information Name: GEMA JAUREGUI [facility] Number: [id number] Current Date: 05/31/2012 16:58:59 Physicians [...] Date Time Location Reason Provider 06/03/2012 09:15 FB Lab Your Goals/Additional instructions: Source: [facility] POWERCHART Document Id: [id number] Miscellaneous - Danica England M.D. - 05/31/2012 [...] ENGLAND MD - 05/31/2012 16:49 CDT Source: [facility] Document Id: [id number] Miscellaneous - Dominick Bradley L.P.N. - 05/31/2012 4:12 PM CDT Adult Ranch Hand Intake/History Adult Ranch Hand Intake/History Entered On: 05/31/2012 16:15 CDT Performed [...] 05/31/2012 16:12 CDT General Info Languages : Hungarian DOMINICK BRADLEY LPN - 05/31/2012 16:12 CDT [...] MD; Reviewed Date: 05/31/2012 16:12 CDT Source: [facility] [employer] Document Id: [id number] documented in this encounter Plan of Treatment Not on filedocumented as of this encounter Visit Diagnoses Not on filedocumented in this encounter Additional Health Concerns Assessment Noted Time PHQ-9 Depression Total Score: 10 05/31/2012 4:49 PM CD T documented as of this encounter
--- OUTSIDE RECORDS SUMMARY | 2021-12-15 11:08 | XMS_ITS | Encounter Summary ---
:1960 Author Organization [facility] Address [address] [place] [address] Care Team Providers Name Role Phone Unavailable Primary Care Provider Unavailable Encounter Details Date Type Department Care Team Description 09/27/2012 Hospital Encounter HX [facility] FBHB FAMILYPRA Ayden England M.D. 200 [place], [place] [address] (Wo rk) Social History [...] How often do you attend hindu or yazidi services? 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 - 09/27/2012 4:21 PM CDT [id number] CHIEF COMPLAINT/REASON FOR VISIT Followup. HISTORY OF PRESENT ILLNESS Kdyzk[age]sxu[age]lie-old female presents to clinic for follow up. [...] to go to [facility] Unit in [place] in the near future. Pap smear: 03/09/2011. Chlamydia: Non applicable secondary to stated age. Colon screening: Has plans to discuss this with her provider in [place] and declines scheduling [place], declines FIT card. Depression: Yes. PHQ-9 score of 7. Asthma: No. Lipids: 06/03/2012. Tdap booster: 2006. [...] ENGLAND MD On: 10/02/2012 10:52 AM Source: [facility] MHSDOLBEYNONRADSYS Document Id: [id number] documented in this encounter Miscellaneous Notes Miscellaneous - Danica England M.D. - 09/27/2012 5:58 PM CDT Ambulatory Patient Summary [address] [address] Visit Information Name: GEMA HARMAN [facility] Number: [id number] Current Date: 09/27/2012 17:58:57 Physicians [...] No Appointments found Your Goals/Additional instructions: [facility] Rem[facility] Document Id: [id number] Miscellaneous - Danica England M.D. - 09/27/2012 5:58 PM CDT Ambulatory Depart Summary [address] [address] Visit Information Name: GEMA HARMAN [facility] Number: [id number] Visit Date: 09/27/2012 17:58:57 Attending [...] your provider for clarification. Additional Information: [facility] Rem[facility] Document Id: [id number] Miscellaneous - Danica England M.D. - 09/27/2012 [...] ENGLAND MD - 09/27/2012 17:23 CDT Source: [employer] Document Id: [id number] CDT!13 Miscellaneous - Dominick Bradley L.P.N. - 09/27/2012 4:38 PM CDT Adult Fun House Operator Intake/History Adult Fun House Operator Intake/History Entered On: 09/27/2012 16:40 CDT [...] Weight Clinic : 74.7 kg DOMINICK BRADLEY EMT DRIVER - 09/27/2012 16:38 CDT General Info Languages : Lao MADHAVGOKULDOMINICK RIGOBERTO AYERS - 09/27/2012 16:38 CDT Subjective Pain Symptoms : No DOMINICK BRADLEY LPN - 09/27/2012 16:38 CDT Dependent Habits Tobacco Use/Currently Using : Yes Exposure to Tobacco Smoke : Patient smokes Smoking Status : Current every day smoker DOMINICK BRADLEY LPN - 09/27/2012 16:38 CDT Source: [employer] Document Id: [id number] CDT!21 documented in this encounter Plan of Treatment Not on filedocumented as of this encounter Visit Diagnoses Not on filedocumented in this encounter Additional Health Concerns Assessment Noted Time PHQ-9 Depression Total Score: 7 09/27/2012 5:23 PM CDT documented as of this encounter
--- OUTSIDE RECORDS SUMMARY | 2021-12-15 11:08 | XMS_ITS | Encounter Summary ---
:1960 Author Organization [facility] Address [address] [place] [address] Care Team Providers Name Role Phone Unavailable Primary Care Provider Unavailable Encounter Details Date Type Department Care Team Description 09/16/2013 Hospital Encounter HX [facility] FBHB FAMILYPRA Ayden England M.D. 200 [place], [place] [address] (Wo rk) Social History [...] How often do you attend latter-day or jain services? Patien t refused 12/11/2018 [...] England M.D. - 11/06/2013 12:00 AM CDT [id number] Patient's lipid profile continues to be abnormal. Would recommend increasing her pravastatin to 40 mg each day. Card is sent to patient in regards to this issue. Danica England M.D./melodie Electronically Signed By: DANICA ENGLAND MD On: 11/07/2013 08:23 AM Modified by and Electronically Signed by: DANICA ENGLAND MD On: 11/07/2013 08:23 AM Source: [facility] MHSDOLBEYNONRADSYS Document Id: [id number] Danica England M.D. - 09/16/2013 9:29 AM CDT [id number] CHIEF COMPLAINT/REASON FOR VISIT Followup. HISTORY OF [...] ENGLAND MD On: 09/17/2013 06:27 PM Source: [facility] MHSDOLBEYNONRADSYS Document Id: [id number] documented in this encounter Nursing Notes Dominick Bradley L.P.N. - 09/22/2013 2:31 PM CDT Physician Letter 7-23-14 Letter faxed. Electronically Signed By: DOMINICK BRADLEY LPN On: 09/22/2013 02:32 PM Source: [facility] POWERCHART Document Id: [id number] documented in this encounter Miscellaneous Notes Miscellaneous - Danica England M.D. - 09/17/2013 12:00 AM CDT [id number] [facility] ANNI MULLEN MD [address] [place] [address] September 17, 2013 RE: Gema Jauregui : [...] any questions, please contact our office. Sincerely, Daniac England M.D. Department of Family Medicine ap Electronically Signed By: DANICA ENGLAND MD On: 09/18/2013 12:19 PM Modified by and Electronically Signed by: DANICA ENGLAND MD On: 09/18/2013 12:19 PM Source: [facility] MHSDOLBEYNONRADSYS Document Id: [id number] Miscellaneous - Danica England M.D. - 09/16/2013 12:59 PM CDT Ambulatory Patient Summary [address] [id number] Visit Information Name: GEMA JAUREGUI [facility] Number: [id number] Current Date: 09/16/2013 [...] appointment detail needed. Your Goals/Additional instructions: Source: [facility] POWERCHART Document Id: [id number] Miscellaneous - Danica England M.D. - 09/16/2013 12:59 PM CDT Ambulatory Discharge Medication List [address] [id number] Visit Information Name: GEMA JAUREGUI [facility] Number: [id number] Visit Date: 09/16/2013 [...] MD Signed On:16-SEP-2013 12:59:19 Additional Information: Source: [facility] POWERCHART Document Id: [id number] Miscellaneous - Dominick Bradley L.P.N. - 09/16/2013 9:45 AM CDT Adult Lace Sewer Intake/History Adult Lace Sewer Intake/History Entered On: 09/16/2013 9:47 CDT Performed [...] 09/16/2013 9:45 CDT General Info Languages : Zambian DOMINICK BRADLEY LPN - 09/16/2013 9:45 CDT [...] BRADLEY LPN - 09/16/2013 9:45 CDT Source: [facility] Rank By Search Document Id: [id number] CDT!26 documented in this encounter Plan of Treatment Not on filedocumented as of this encounter Visit Diagnoses Not on filedocumented in this encounter Additional Health Concerns Assessment Noted Time PHQ-9 Depression Total Score: 4 06/04/2013 12:09 PM CD T documented as of this encounter
--- OUTSIDE RECORDS SUMMARY | 2021-12-15 11:08 | XMS_ITS | Encounter Summary ---
:1960 Author Organization [facility] Address [address] [place] [address] Care Team Providers Name Role Phone Unavailable Primary Care Provider Unavailable Encounter Details Date Type Department Care Team Description 02/23/2010 Hospital Encounter [facility]X [facility] FB[facility] BONE DENS Ayden England M.D. 200 [place], [place] [address] (Wo rk) Social History [...]
--- OUTSIDE RECORDS SUMMARY | 2021-12-15 11:08 | XMS_ITS | Encounter Summary ---
:1960 Author Organization [facility] Address [address] [place] [address] Care Team Providers Name Role Phone Unavailable [...] How often do you attend caodaism or jew services? 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
--- OUTSIDE RECORDS SUMMARY | 2021-12-15 11:08 | XMS_ITS | Encounter Summary ---
:1960 Author Organization [facility] Address [address] [place] [address] Care Team Providers Name Role Phone Unavailable Primary Care Provider Unavailable Encounter Details Date Type Department Care Team Description 07/31/2013 Hospital Encounter HX [facility] FBHB FAMILYPRA Ayden England M.D. 200 [place], [place] [address] (Wo rk) Social History [...] How often do you attend restoration or zoroastrian services? 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 - 07/31/2013 10:33 AM CDT [id number] CHIEF COMPLAINT/REASON FOR VISIT Knee pain. HISTORY OF PRESENT ILLNESS A 53-year-old female presents to clinic secondary to knee pain on the left. Feels like her kneecap is catching. Did have surgery in 1976, open type procedure. Had no particular trauma, but was helping her bykbcd-mb-abj move and did a lot of twisting [...] ENGLAND MD On: 08/06/2013 01:36 PM Source: [facility] MHSDOLBEYNONRADSYS Document Id: [id number] documented in this encounter Nursing Notes Dominick Bradley L.PCarlos - 08/01/2013 10:37 AM CDT Labs 14 Result card sent. Electronically Signed By: DOMINICK BRADLEY LPN On: 08/01/2013 10:37 AM Source: [facility] POWERCHART Document Id: [id number] documented in this encounter Miscellaneous Notes Miscellaneous - Danica England M.D. - 07/31/2013 3:10 PM CDT Ambulatory Patient Summary [address] [id number] Visit Information Name: GEMA JAUREGUI [facility] Number: [id number] Current Date: 07/31/2013 15:10:54 Physicians [...] appointment detail needed. Your Goals/Additional instructions: [facility] POWERCH[facility] Document Id: [id number] Miscellaneous - Danica England M.D. - 07/31/2013 3:10 PM CDT Ambulatory Discharge Medication List [address] [id number] Visit Information Name: GEMA JAUREGUI [facility] Number: [id number] Visit Date: 07/31/2013 15:10:52 Attending [...] MD Signed On:31-JUL-2013 15:10:44 Additional Information: Source: [facility] POWERCHART Document Id: [id number] Miscellaneous - Dominick Bradley L.P.N. - 07/31/2013 10:40 AM CDT Adult Strategic Account Executive Intake/History Adult Strategic Account Executive Intake/History Entered On: 07/31/2013 10:42 CDT Performed [...] 07/31/2013 10:40 CDT General Info Languages : Cook Islander DOMINICK BRADLEY LPN - 07/31/2013 10:40 CDT [...] BRADLEY LPN - 07/31/2013 10:40 CDT Source: [facility] POWERCHART Document Id: [id number] CDT!26 Telephone Encounter - Danica England M.D. - 07/31/2013 12:00 AM CDT [id number] Patient's lipid profile was markedly abnormally. A [...] ENGLAND MD On: 08/01/2013 05:28 PM Source: [facility] MHSDOLBEYNONRADSYS Document Id: [id number] documented in this encounter Plan of Treatment [...] (ABNORMAL) Lipid Panel (07/31/2013 11:59 AM CDT) [facility] Method Time Signature Cholesterol, Total 340 (H) [...]
--- OUTSIDE RECORDS SUMMARY | 2021-12-15 11:08 | XMS_ITS | Encounter Summary ---
:1960 Author Organization [facility] Address [address] [place] [address] Care Team Providers Name Role Phone Unavailable Primary Care Provider Unavailable Encounter Details Date Type Department Care Team Description 07/27/2014 Hospital Encounter HX NO MAPPING Danica England M.D. [address] [place] [address] (Wo rk) Social History Tobacco [...] How often do you attend scientology or pentecostalism services? Patien t refused 12/11/2018 [...] Coding Summary-Paper Based CODING DATE: 08/08/2014 FINAL [facility] STATUS: * Discharged to Home or Self [...] BAZZI Date Saved: 08/08/2014 00:38 am Source: [facility] Document Id: [id number] documented in this encounter Plan of Treatment Not on filedocumented as of this encounter Visit Diagnoses Not on filedocumented in this encounter Additional Health Concerns Assessment Noted Time PHQ-9 Depression Total Score: 4 07/27/2014 12:26 PM CD T documented as of this encounter
--- OUTSIDE RECORDS SUMMARY | 2021-12-15 11:08 | XMS_ITS | Encounter Summary ---
:1960 Author Organization [facility] Address [address] [place] [address] Care Team Providers Name Role Phone Unavailable Primary Care Provider Unavailable Encounter Details Date Type Department Care Team Description 11/06/2013 Hospital Encounter HX [facility] LAB Ayden England M.D. 200 [place], [place] [address] (Wo rk) Social History [...] How often do you attend worship or restorationism services? Patien t refused 12/11/2018 [...] BRADLEY LPN On: 11/07/2013 11:28 AM [facility] POWERCHART Document Id: [id number] documented in this encounter Miscellaneous Notes Telephone [...] MRN #: Reason for Call: Message: william son to speak to nurse b patient checking on a medication refill a r call her back at [phone] Advice/Action: Source used: ( ) Verbalizes understanding [...] back cell phone number ( ) Source: [facility] [employer] Document Id: [id number] documented in this encounter Plan of Treatment [...] (ABNORMAL) Lipid Panel (11/06/2013 10:28 AM CDT) [facility] Method Time Signature Cholesterol, Total 289 [...] AST (Aspartate Aminotransferase) (11/06/2013 10:28 AM CDT) [facility] gist Method Time Signature Aspartate 31 8 [...]
--- OUTSIDE RECORDS SUMMARY | 2021-12-15 11:08 | XMS_ITS | Encounter Summary ---
:1960 Author Organization [facility] Address [address] [place] [address] Care Team Providers Name Role Phone Unavailable Primary Care Provider Unavailable Encounter Details Date Type Department Care Team Description 12/01/2011 Hospital Encounter HX [facility] FAMILYPRA Ayden England M.D. 200 [place], [place] [address] (Wo rk) Social History [...] How often do you attend yazdanism or caodaism services? Patien t refused 12/11/2018 [...] Body Mass Index 26.54 03/09/2011 8:52 AM [employer] documented in this encounter Progress Notes Danica England M.D. - 12/01/2011 9:41 AM CDT [id number] CHIEF COMPLAINT/REASON FOR VISIT Follow-up ankle HISTORY OF PRESENT ILLNESS 51-year-old female presents to clinic to follow-up her ankle sprain. Is in a type of a Cam walker since she twisted her ankle 10/28/2011. She was seen in the Urgent Care in [place]. had unremarkablex-rays but swelling was noted. Was [...] Episodically takes a bit of pain medication, daxf-zrm-xhvxizo in nature with some but not total [...] is scheduled with Dr. Mullen 12/19/2011 in [place]. Will likely need some physical therapy under [...] ENGLAND MD On: 12/05/2011 12:16 PM Source: [facility] [employer]OLBEYNON[employer]SYS Document Id: [id number] documented in this encounter Miscellaneous Notes Miscellaneous - Danica England M.D. - 12/01/2011 5:51 PM CDT Ambulatory Patient Summary [address] [address] Visit Information Name: GEMA JAUREGUI Current Date: [...] No Appointments found Your Goals/Additional instructions: Source: [facility] POWERCHART Document Id: [id number] Zach - Danica England M.D. - 12/01/2011 5:51 PM CDT Ambulatory Depart Summary [address] [address] Visit Information Name: GEMA JAUREGUI Visit Date: [...] your provider for clarification. Additional Information: Source: [facility] POWERCHART Document Id: [id number] Zach - Danica England M.D. - 12/01/2011 [...] ENGLAND MD - 12/01/2011 17:47 CDT [facility] Document Id: [id number] Miscellaneous - Dominick Bradley L.P.N. 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 - 12/01/2011 12:00 AM CDT [id number] [facility] December 01, 2011 ANNI MULLEN MD [address] [place] [address] RE: Gema Jauregui : [address] Mullen: This letter is in regards to Gema Jauregui, a 51-year-old female, who will be seeing you on December 18 at 9:50 a.m. secondary to a protracted ankle sprain. She is in a modified CAM walker which was placed by the Urgent Care in [place] on October 28, 2011, when she injured her ankle. She has been wearing it quite faithfully since that time, but her ankle continues to give her greater than one would expect discomfort and pain. She will be hand carrying her x-rays from this appointment and from her most recent evaluation in [place] for your perusal prior to her appointment. [...] ENGLAND MD On: 12/05/2011 09:50 AM Source: [facility] MHSDOLBEYNONRADSYS Document Id: [id number] documented in this encounter Plan of Treatment [...] Aithai See R.T.(R) IMG DIAGNOSTIC IMAGING PROCE DURLISET documented in this encounter Visit Diagnoses Not on filedocumented in this encounter Additional Health Concerns Assessment Noted Time PHQ-9 Depression Total Score: 3 12/01/2011 5:47 PM CDT documented as of this encounter
--- OUTSIDE RECORDS SUMMARY | 2021-12-15 11:08 | XMS_ITS | Encounter Summary ---
:1960 Author Organization [facility] Address [address] [place] [address] Care Team Providers Name Role Phone Unavailable Primary Care Provider Unavailable Encounter Details Date Type Department Care Team Description 07/27/2014 Hospital Encounter HX [facility] FAMILYPRA Ayden England M.D. 200 [place], [place] [address] (Wo rk) Social History [...] How often do you attend confucianist or uatsdin services? Patien t refused 12/11/2018 [...] England M.D. - 08/04/2014 12:00 AM CDT [id number] Total cholesterol 395, triglycerides 196, LDL 301. [...] ENGLAND MD On: 08/05/2014 06:09 PM Source: [facility] MHSDOLBEYNONRADSYS Document Id: [id number] documented in this encounter H&P Notes Danica England M.D. - 07/27/2014 8:28 AM CDT [id number] CHIEF COMPLAINT/REASON FOR VISIT Annual exam. HISTORY [...] months caring for her mother and her rfckia-as-bwm in [place] and did not get refills while she [...] in [place]. Mother has diabetes mellitus and [...] ENGLAND MD On: 07/29/2014 01:35 PM Source: [facility] MHSDOLBEYNONRADSYS Document Id: [id number] documented in this encounter Nursing Notes Dominick Bradley L.PBrigitteN. - 08/04/2014 10:57 AM CDT Labs 07-27-14 Result card sent. Electronically Signed By: DOMINICK BRADLEY LPN On: 08/04/2014 10:57 AM Source: [employer] Document Id: [id number] documented in this encounter Miscellaneous Notes Miscellaneous - Daniac England M.D. - 07/27/2014 12:26 PM CDT [...] ENGLAND MD - 07/27/2014 12:26 CDT Source: [employer] Document Id: [id number] CDT!13 Miscellaneous - Danica England M.D. - 07/27/2014 12:25 PM CDT Ambulatory Patient Summary [address] [place], [place] [id number] Visit Information Name: GEMA JAUREGUI [facility] Number: [id number] Current Date: 07/27/2014 12:25:25 Physicians [...] appointment detail needed. Your Goals/Additional instructions: Source: [facility] POWERCHART Document Id: [id number] Miscellaneous - Danica England M.D. - 07/27/2014 12:25 PM CDT Ambulatory Discharge Medication List [address] [id number] Visit Information Name: GEMA JAUREGUI [facility] Number: [id number] Visit Date: 07/27/2014 12:25:24 Attending [...] MD Signed On:27-JUL-2014 12:25:13 Additional Information: Source: [employer] Document Id: [id number] Miscellaneous - Dominick Bradley L.P.N. - 07/27/2014 8:41 AM CDT Adult Manager Php Intake/History Adult Manager Php Intake/History Entered On: 07/27/2014 8:43 CDT Performed [...] 07/27/2014 8:41 CDT General Info Languages : Sudanese Is Patient Female and 13-50 no hysterectomy [...] Sanchez LPN - 07/27/2014 8:41 CDT Source: [employer] Document Id: [id number] CDT!29 Miscellaneous - Dominick Bradley L.P.NBrigitte - 07/27/2014 8:41 AM CDT Health Assessment [...] None Behavioral Health Screen/Safety Assmt : No Jainism Preference : Unknown DOMINICK BRADLEY LPN - 07/27/2014 8:41 CDT Advance Directive Advanced Directives : No Advance Directive Additional Information : No DOMINICK BRADLEY LPN - 07/27/2014 8:41 CDT Educ Needs Learning Style Preference Adult Grid Patient : Demonstration, Printed materials, Verbal explanation, Video/Educational TV Family : Demonstration, Printed materials, Verbal explanation, Video/Educational TV DOMINICK BRADLEY LPN - 07/27/2014 8:41 CDT Source: [facility] POWERCHART Document Id: [id number] CDT!24 documented in this encounter Plan of [...] are i n the results section. PATHOLOGY SUSTAINABILITY EXECUTIVE DIRECTOR CYTOLOGY Routine 07/27/2014 12:00 R esults for this AM CDT procedure are i n the results section. documented in this encounter Results Automated Differential (07/27/2014 9:24 AM CDT) athologist Signature Absolute 3.67 1.70 - POWERCHART [...] [id number] Erythrocytes 4.43 3.90 - 5.03 POWERCHART [id number] Hemoglobin 13.1 12.0 - 15.5 POWERCHART GDL [...] POWERCHART MMOLL HXeGFR (MDRD) >60 >=60 POWERCHART [id number] eGFR >60 >=60 POWERCHART Black/ [id number] Belizean Specimen (Source) Anatomical Collection Method Collection Time [...] Negative Negative POWERCHART MGDL Specific 1.025 POWERCHART [place], POCT, U HXBLOOD Trace (A) Negative POWERCHART [...] for FH and FDB is available mariana [facility]: FH/ADH Genetic Reflex [place] el (test ADHP). Acquired (non-genetic) causes of markedly increased LDL cholesterol include cholestatic liver disease due to the presence of LpX. If a genetic form of hypercholesterolemia is suspected, family studies including biochemical testing fo r lipids (total cholesterol,triglycerides, LDL cholesterol and HDL cholesterol) are recommended. ??Please contact the laboratory at or the on-line test catalog at [employer] for information about how to order these [...] AST (Aspartate Aminotransferase) (07/27/2014 9:24 AM CDT) [facility] gist Method Time Signature Aspartate 28 8 - 43 POWERCHART Aminotransferase UNITL (AST), S Specimen (Source) Anatomical Collection Method Collection Time Re ceived Time Location / / Volume Laterality Blood 07/27/2014 9:24 AM CDT Danica England M.D. LAB BLOOD ADD-ON Performing Organization Address City/State/ZIP Code Phon e Number POWERCHART Pathology SUSTAINABILITY EXECUTIVE DIRECTOR Cytology (07/27/2014 12:00 AM CDT) Specimen (Source) Anatomical Location Collection Method / Collectio n Time Received Time / Laterality Volume 07/27/2014 Narrative [facility] LAB - 08/04/2014 6:04 AM CDT [facility] in [address] [place], [place] ??[address] Patient Name: GEMA JAUREGUI Patient ID #: [id number] Collected: 07/27/2014 Address: [facility]/Zip: [address] [place] [address] ??[phone] Received: Reported: 07/28/2014 08/04/2014 Soc. Sec. #: ?/Age/Sex (Age: 54) ??F Physician(s): RODRI ENGLAND MD Copy To: ? [facility] ??[id number] [facility], ??[place] ??[address] CYTOPATHOLOGY SUSTAINABILITY EXECUTIVE DIRECTOR REPORT FINAL CYTOLOGIC DIAGNOSIS Pap Smear - [...] LAB PAP COPATH ORDERABLES Performing Organization Address City/State/ZIP Code Phon e Number [facility] documented in this encounter Visit Diagnoses Not on filedocumented in this encounter Additional Health Concerns Assessment Noted Time PHQ-9 Depression Total Score: 4 07/27/2014 12:26 PM CD T documented as of this encounter
--- OUTSIDE RECORDS SUMMARY | 2021-12-15 11:08 | XMS_ITS | Encounter Summary ---
:1960 Author Organization [facility] Address [address] [place] [address] Care Team Providers Name Role Phone Unavailable Primary Care Provider Unavailable Encounter Details Date Type Department Care Team Description 09/06/2012 Hospital Encounter HX [facility] Ayden England M.D. 200 [place], [place] [address] (Wo rk) Social History [...] How often do you attend mosque or christian services? Patien t refused 12/11/2018 Do you [...] BRADLEY LPN On: 09/06/2012 03:22 PM [facility] Document Id: [id number] documented in this encounter Plan of Treatment Not on filedocumented as of this encounter Procedures Procedure Name Priority Date/Time Associated Comments Diagnosis ASPARTATE Routine 09/06/2012 12:40 Results for this AMINOTRANSFERASE (AST), PM CDT proc edure are in S/P the results section. documented in this encounter Results AST (Aspartate Aminotransferase) (09/06/2012 12:40 PM CDT) [facility] gist Method Time Signature Aspartate 36 8 [...]
--- OUTSIDE RECORDS SUMMARY | 2021-12-15 11:08 | XMS_ITS | Encounter Summary ---
:1960 Author Organization [facility] Address [address] [place] [address] Care Team Providers Name Role Phone Unavailable Primary Care Provider Unavailable Encounter Details Date Type Department Care Team Description 07/07/2010 Hospital Encounter HX [facility] Shelley Johnson M.D. 200 [place], [place] [address] (Wo rk) Social [...] How often do you attend zoroastrianism or restorationism services? Patien t refused 12/11/2018 [...] BRADLEY LPN On: 07/13/2010 11:04 am [facility] Document Id: [id number] documented in this encounter Plan of Treatment Not on filedocumented as of this encounter Visit Diagnoses Not on filedocumented in this encounter Additional Health Concerns Assessment Noted Time PHQ-9 Depression Total Score: 3 02/23/2010 11:56 AM CS T documented as of this encounter
--- OUTSIDE RECORDS SUMMARY | 2021-12-15 11:08 | XMS_ITS | Encounter Summary ---
:1960 Author Organization [facility] Address [address] [place] [address] Care Team Providers Name Role Phone Unavailable Primary Care Provider Unavailable Encounter Details Date Type Department Care Team Description 06/04/2013 Hospital Encounter HX [facility] FAMILYPRA Ayden England M.D. 200 [place], [place] [address] (Wo rk) Social History [...] How often do you attend confucianism or yarsani services? 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 - 06/04/2013 11:03 AM CDT [id number] CHIEF COMPLAINT/REASON FOR VISIT Med check. HISTORY PRESENT ILLNESS This 52-year-old female, presents clinic for a med check. Has have been under a bit more stress due to her mother's recent placement in the memory care unit, as well as her dywlhy-ds-zxq moving into her home. She has actually [...] ENGLAND MD On: 06/09/2013 08:21 AM Source: [facility] MHSDOLBEYNONRADSYS Document Id: [id number] documented in this encounter Nursing Notes Dominick Bradley LBrigitteP.N. - 06/11/2013 11:42 AM CDT labs 06-04-13 Result card sent. Electronically Signed By: DOMINICK BRADLEY LPN On: 06/11/2013 11:43 AM Source: [facility] POWERCHART Document Id: [id number] documented in this encounter Miscellaneous Notes Miscellaneous - Danica England M.D. - 06/04/2013 12:12 PM CDT Ambulatory Patient Summary [address] [place] [id number] Visit Information Name: GEMA JAUREGUI [facility] Number: [id number] Current Date: 06/04/2013 12:12:50 Physicians [...] Tablet(s), Oral, two times aday Routed to [facility] [place], [place] [id number] sertraline (sertraline 100 mg oral tablet) 2 Tablet(s), Oral, once a day New Routed to [facility] [place], [place] [id number] Stop Taking the Following Medications: Medication list [...] appointment detail needed. Your Goals/Additional instructions: Source: [facility] POWERCHART Document Id: [id number] Miscellaneous - Danica England M.D. - 06/04/2013 12:12 PM CDT Ambulatory Discharge Medication List [place] [id number] [place], [place] [phone] Visit Information Name: GEMA JAUREGUI [facility] Number: [id number] Visit Date: 06/04/2013 12:12:49 Attending [...] Tablet(s), Oral, two times aday Routed to [facility] [place] [address] sertraline (sertraline 100 mg oral tablet) 2 Tablet(s), Oral, once a day New Routed to [facility] [place] [address] Stop Taking the Following Medications: [...] MD Signed On:04-JUN-2013 12:12:40 Additional Information: Source: [facility] [employer] Document Id: [id number] Zach - Danica England M.D. - 06/04/2013 12:09 [...] ENGLAND MD - 06/04/2013 12:09 CDT Source: [facility] [employer] Document Id: [id number] CDT!13 Miscellaneous - Dominick Bradley LBrigittePBrigitteNBrigitte - 06/04/2013 11:13 AM CDT Adult Travel Money Advisor Intake/History Adult Travel Money Advisor Intake/History Entered On: 06/04/2013 11:16 CDT Performed [...] Dosing Weight Clinic : 74 kg DOMINICK BRADLEYFranny AYERS - 06/04/2013 11:13 CDT General Info Languages : Chinese DOMINICK BRADLEY ANDRIA - 06/04/2013 11:13 CDT Subjective Pain Symptoms : Yes DOMINICK BRADLEY ANDRIA - 06/04/2013 11:13 CDT Pain Pain Assessment Grid Pain 1 Location : Hand (Comment: thumb [DOMINICK BRADLEY RIGOBERTO AYERS - 06/04/2013 11:13 CDT] ) Laterality : Left DOMINICK BRADLEY ANDRIA - 06/04/2013 11:13 CDT Dependent Habits Tobacco Use/Currently Using : Yes Exposure to Tobacco Smoke : Patient smokes Smoking Status : Current every day smoker GOKUL BRADLEYNIFER RIGOBERTO AYERS - 06/04/2013 11:13 CDT Source: [employer] Document Id: [id number] CDT!26 documented in this encounter Plan of [...] % 38.6 19.3 - POWERCHART 51.7 HX [place] % 7.6 4.7 - 12.5 POWERCHART HX [...] X109L Erythrocytes 4.17 3.90 - POWERCHART 5.03 G5724C Hemoglobin 12.4 12.0 - POWERCHART 15.5 GDL [...]
--- OUTSIDE RECORDS SUMMARY | 2021-12-15 11:08 | XMS_ITS | Encounter Summary ---
:1960 Author Organization [facility] Address [address] [place] [address] Care Team Providers Name Role Phone Unavailable Primary Care Provider Unavailable Encounter Details Date Type Department Care Team Description 01/08/2013 Hospital Encounter HX [facility] FAMILYPRA Ayden England M.D. 200 [place], [place] [address] (Wo rk) Social History [...] 12/11/2018 relatives? How often do you attend protestant or jew services? Patien t refused 12/11/2018 Do you belong to any clubs or organizations such as Patient refused 12/11/2018 protestant groups, unions, fraternal or athletic groups, or [...] Comments Blood Pressure 110/68 01/08/2013 9:15 AM JUNIOR ESTIMATOR Pulse 76 01/08/2013 9:15 AM JUNIOR ESTIMATOR Temperature - - Respiratory Rate 12 01/08/2013 9:15 AM JUNIOR ESTIMATOR Oxygen Saturation - - Inhaled Oxygen Concentration - - Weight 62.9 kg (138 lb 10.7 oz) 01/08/2013 9:15 AM JUNIOR ESTIMATOR Height - - Body Mass Index 22.02 03/09/2011 8:52 AM JUNIOR ESTIMATOR documented in this encounter Progress Notes Danica England M.D. - 01/08/2013 9:06 AM CST [id number] CHIEF COMPLAINT/REASON FOR VISIT Followup. HISTORY OF [...] planning to have her well-woman exam in [place] but has changed her mind and is interested in following through in [place]. Is fasting today. EMR reviewed. Please see [...] of 6. Asthma: No. Lipids: 01/08/2013. Tetanus: 2006. Pneumovax: Not applicable secondary to stated age. [...] ENGLAND MD On: 01/08/2013 04:28 PM Source: [facility] MHSDOLBEYNONRADSYS Document Id: [id number] OR ESTIMATOR documented in this encounter Nursing Notes Geneva Lazcano - 01/09/2013 10:58 AM CST Colonoscopy Document Contains Addenda Addendum by GENEVA LAZCANO on 13 January 2013 9:19 JUNIOR ESTIMATOR [facility] [place] [address] Referral Authorization: Procedure or visit authorized for: Colonoscopy (CPT 32582) Referred by: Dr. England Contact Location: [facility] Contact Referred to: Dr. Mattson Contact Location: [facility] Contact Authorization Needed: yes or _ X _ no If yes, Referral valid: From: To: Number of visits approved for: Authorized by: Claudia Melendez Contact Number: Date Authorized: 01-13-2013 Reference Number: or __ X _ not applicable per Graphic Design Manager. Individual that received the Referral Authorization: LML Modified by and Electronically Signed by: GENEVA LAZCANO On: 01/13/2013 09:19 AM DATE: 01-09-2013 SCHEDULED FOR: Colonoscopy AT [facility] WITH DR. MATTSON DATE of Procedure: 01-14-13 TIME of Procedure: 1030 PER: DR. ENGLAND /DR. VASQUEZ ORDERS. Prep instructions have been sent to the patient. Patient advised to not take aspirin or ibuprofen for 10 days prior to the scheduled procedure. Insurance referral done XYes __No Copies of referring healthcare provider notes sent to [facility]. Electronically Signed By: GENEVA LAZCANO On: 01/09/2013 10:59 AM [facility] Document Id: [id number] OR ESTIMATOR Oksana Bradley L.PBrigitteN. - 01/08/2013 2:29 PM CST Labs 01-08-13 Result card sent. Electronically Signed By: OKSANA BRADLEY LPN On: 01/08/2013 02:29 PM Source: [employer] Document Id: [id number] OR ESTIMATOR documented in this encounter Miscellaneous Notes Miscellaneous - Danica England M.D. - 01/08/2013 9:57 AM CST Ambulatory Patient Summary [address] [address] Visit Information Name: ANTONINA JAUREGUI [facility] Number: [id number] Current Date: 01/08/2013 09:57:54 Physicians [...] appointment detail needed. Your Goals/Additional instructions: Source: [facility] POWERCHART Document Id: [id number] OR ESTIMATOR Miscellaneous - Danica England M.D. - 01/08/2013 9:57 AM CST Ambulatory Depart Summary [address] [address] Visit Information Name: ANTONINA JAUREGUI [facility] Number: [id number] Visit Date: 01/08/2013 09:57:53 Attending [...] your provider for clarification. Additional Information: Source: [facility] POWERCHART Document Id: [id number] OR ESTIMATOR Zach - Danica England M.D. - 01/08/2013 9:44 AM CST General Message Document Contains Addenda Addendum by GENEVA LAZCANO on 09 January 2013 11:00:44 JUNIOR ESTIMATOR From: GENEVA LAZCANO To: DANICA ENGLAND MD; Sent: 01/09/2013 11:00:44 JUNIOR ESTIMATOR Subject: RE: General Message Scheduled for 01-14-2013 at 1030. From: DANICA ENGLAND MD To: GENEVA LAZCANO; Sent: 01/08/2013 09:44:37 JUNIOR ESTIMATOR Subject: General Message Please schedule a screening colonoscopy for Ms. Antonina Jauregui. Thank you. Source: [facility] POWERCHART Document Id: [id number] Zach - Danica England M.D. - 01/08/2013 9:31 AM CST PHQ-9 PHQ-9 Entered On: 01/08/2013 9:32 JUNIOR ESTIMATOR Performed On: 01/08/2013 9:31 JUNIOR ESTIMATOR by DANICA ENGLAND MD PHQ-9 Little interest [...] difficult DANICA ENGLAND MD - 01/08/2013 9:31 JUNIOR ESTIMATOR Source: [employer] Document Id: [id number] JUNIOR ESTIMATOR!13 OR ESTIMATOR Miscellaneous - Oksana Bradley L.P.N. 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 Operator Intake/History Entered On: 01/08/2013 9:17 JUNIOR ESTIMATOR Performed On: 01/08/2013 9:15 JUNIOR ESTIMATOR by OKSANA BRADLEY LPN Intake Chief Complaint [...] kg OKSANA BRADLEY LPN - 01/08/2013 9:15 JUNIOR ESTIMATOR General Info Languages : Marshallese OKSANA BRADLEY LPN - 01/08/2013 9:15 JUNIOR ESTIMATOR Subjective Pain Symptoms : No OKSANA BRADLEY LPN - 01/08/2013 9:15 JUNIOR ESTIMATOR Dependent Habits Tobacco Use/Currently Using : Yes Exposure to Tobacco Smoke : Patient smokes Smoking Status : Current every day smoker OKSANA BRADLEY LPN - 01/08/2013 9:15 JUNIOR ESTIMATOR Source: [employer] Document Id: [id number] JUNIOR ESTIMATOR!21 OR ESTIMATOR Telephone Encounter - Danica England M.D. - 01/08/2013 12:00 AM CST [id number] Patient's lipid profile is obviously abnormal. Her [...] ENGLAND MD On: 01/09/2013 08:07 AM Source: [facility] MHSDOLBEYNONRADSYS Document Id: [id number] OR ESTIMATOR Miscellaneous - Meri Morataya L.P.N. - 01/07/2013 3:02 PM CST PHQ-9 From: MERI MORATAYA LPN To: OKSANA BRADLEY LPN; Sent: 01/07/2013 15:02:36 JUNIOR ESTIMATOR Show up: 05/02/2013 15:02:00 JUNIOR ESTIMATOR Subject: PHQ-9 Due Date/Time: 05/31/2013 15:02:00 CDT [...] Patient ( ) ( ) Call for Software Development Intern ( ) Follow up on Results ( ) Other: PROVIDER: ( ) Call Physician ( ) Call Pharmacist ( ) Call Lab ( ) Other: Special Instructions: Comments: Source: [facility] POWERCHART Document Id: [id number] documented in this encounter Plan of Treatment Not on filedocumented as of this encounter Procedures Procedure Name Priority Date/Time Associated Comments Diagnosis LIPID PANEL, S Routine 01/08/2013 9:53 Results fo r this AM JUNIOR ESTIMATOR procedure are i n the results section. ASPARTATE Routine 01/08/2013 9:53 Results for this AMINOTRANSFERASE (AST), AM JUNIOR ESTIMATOR proc edure are in S/P the results section. documented in this encounter Results (ABNORMAL) AST (Aspartate Aminotransferase) (01/08/2013 9:53 AM JUNIOR ESTIMATOR) [facility] [employer] Method Time Signature Aspartate 62 (H) 8 - 43 POWERCHART Aminotransferase UNITL (AST), S Specimen (Source) Anatomical Collection Method Collection Time Re ceived Time Location / / Volume Laterality Blood 01/08/2013 9:53 AM JUNIOR ESTIMATOR Danica England M.D. LAB BLOOD ADD-ON Performing Organization Address City/State/ZIP Code Phon e Number POWERCHART (ABNORMAL) Lipid Panel (01/08/2013 9:53 AM JUNIOR ESTIMATOR) [facility] [employer] Method Time Signature Cholesterol, Total 269 (H) 0 - 200 POWERCHART MGDL HX HDL 52.0 40.0 - POWERCHART 60.0 MGDL Triglycerides 156 (H) 0 - 150 POWERCHART MGDL Calculated LDL 186 (H) 0 - 100 POWERCHART MGDL Specimen (Source) Anatomical Collection Method Collection Time Re ceived Time Location / / Volume Laterality Blood 01/08/2013 9:53 AM JUNIOR ESTIMATOR Danica England M.D. LAB BLOOD ADD-ON Performing Organization Address City/State/ZIP Code Phon e Number POWERCHART documented in this encounter Visit Diagnoses Not on filedocumented in this encounter Additional Health Concerns Assessment Noted Time PHQ-9 Depression Total Score: 6 01/08/2013 9:31 AM JUNIOR ESTIMATOR documented as of this encounter
--- OUTSIDE RECORDS SUMMARY | 2021-12-15 11:08 | XMS_ITS | Encounter Summary ---
:1960 Author Organization [facility] Address [address] [place] [address] Care Team Providers Name Role Phone Unavailable Primary Care Provider Unavailable Encounter Details Date Type Department Care Team Description 12/15/2014 Hospital Encounter HX [facility] FBHB FAMILYPRA Ayden England M.D. 200 [place], [place] [address] (Wo rk) Social History [...] How often do you attend rastafarian or jehovah's witness services? Patien t refused [...] England M.D. - 12/15/2014 10:31 AM CDT [id number] CHIEF COMPLAINT/REASON FOR VISIT Several issues. HISTORY [...] symptoms of her legs moving at night. [place] her mood was doing very well during [...] ENGLAND MD On: 12/18/2014 04:09 PM Source: [facility] MHSDOLBEYNONRADSYS Document Id: [id number] documented in this encounter Miscellaneous Notes Miscellaneous - Danica England M.D. - 12/15/2014 1:09 PM CDT Ambulatory Patient Summary [address] [id number] Visit Information Name: GEMA JAUREGUI [facility] Number: [id number] Current Date: 12/15/2014 13:09:17 Physicians [...] 3 caps at bedtime New Routed to [facility] [address] [place] [address] melatonin (Melatonin 5 mg oral tablet) See Instructions 2 tab(s) PO Bedtime pravastatin (pravastatin 20 mg oral tablet) 1 Tablet(s), Oral, once a day (at bedtime) recheck labs in 10 days, if stable continue medication and recheck labs fasting in 2 months Routed to [facility] [address] [place] [address] sertraline (sertraline 100 mg oral [...] By: DANICA ENGLAND MD Signed On:15-DEC-2014 13:09:07 Your Allergies [...] if you dont have one. Go to [email or web address] and click on Create Your Account. Then, follow the directions to complete the online form. Youll be asked for your [facility] number which you can find at the top of this document. Your Goals/Additional instructions: Source: [facility] POWERCHART Document Id: [id number] Miscellaneous - Danica England M.D. - 12/15/2014 1:09 PM CDT Ambulatory Discharge Medication List [address] [place], [place] [phone] Visit Information Name: GEMA JAUREGUI [facility] Number: [id number] Visit Date: 12/15/2014 13:09:15 Attending [...] 3 caps at bedtime New Routed to [address] [address] melatonin (Melatonin 5 mg oral tablet) See Instructions 2 tab(s) PO Bedtime pravastatin (pravastatin 20 mg oral tablet) 1 Tablet(s), Oral, once a day (at bedtime) recheck labs in 10 days, if stable continue medication and recheck labs fasting in 2 months Routed to [address] [address] sertraline (sertraline 100 mg oral tablet) [...] MD Signed On:15-DEC-2014 13:09:07 Additional Information: Source: [facility] [employer] Document Id: [id number] Miscellaneous - Dominick Bradley L.P.NBrigitte - 12/15/2014 10:46 AM CDT 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/History 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 Intake/History Entered On: 12/15/2014 10:47 CDT Performed [...] 12/15/2014 10:46 CDT General Info Languages : Romanian Is Patient Female and 13-50 no hysterectomy : No DOMINICK BRADLEY LPN - 12/15/2014 10:46 CDT Subjective Pain Symptoms : No DOMINICK BRADLEY LPN - 12/15/2014 10:46 CDT Dependent Habits Tobacco Use/Currently Using : No Tobacco Use/Last 12 months : No Exposure to Tobacco Smoke : Other: former Smoking Status : Former smoker DOMINICK BRADLEY LPN - 12/15/2014 10:46 CDT Source: [facility] [employer] Document Id: [id number] CDT!23 documented in this encounter Plan of Treatment Not on filedocumented as of this encounter Visit Diagnoses Not on filedocumented in this encounter Additional Health Concerns Assessment Noted Time PHQ-9 Depression Total Score: 4 07/27/2014 12:26 PM CD T documented as of this encounter
--- OUTSIDE RECORDS SUMMARY | 2021-12-15 11:08 | XMS_ITS | Encounter Summary ---
:1960 Author Organization [facility] Address [address] [place] [address] Care Team Providers Name Role Phone Unavailable Primary Care Provider Unavailable Encounter Details Date Type Department Care Team Description 01/17/2013 Hospital Encounter HX [facility] FBCV SURGEON Groge Mattson M.D. Social History Tobacco Use Types [...] often do you attend latter day or pentecostalism services? Patien t refused 12/11/2018 [...] Comments Blood Pressure 108/64 01/17/2013 10:11 AM FLIGHT ENGINEER HELICOPTER Pulse - - Temperature - - Respiratory Rate - - Oxygen Saturation - - Inhaled Oxygen Concentration - - Weight - - Height - - Body Mass Index - - documented in this encounter Progress Notes Abe Mattson M.D. - 01/17/2013 10:06 AM CST [id number] She is here for postop colonoscopy. She [...] MATTSON MD On: 01/30/2013 10:35 AM Source: [facility] MHSDOLBEYNONRADSYS Document Id: [id number] HT ENGINEER HELICOPTER documented in this encounter Miscellaneous Notes Miscellaneous - Geneva Lazcano - 01/17/2013 11:06 AM CST Reminder Msg-Schedule Colonoscopy From: GENEVA LAZCANO ( Surgery Nurse) To: Surgery Nurse; Sent: 01/17/2013 11:06:15 FLIGHT ENGINEER HELICOPTER Show up: 12/14/2022 11:06:00 CDT Subject: Reminder Msg-Schedule Colonoscopy Due Date/Time: 01/14/2023 11:06:00 FLIGHT ENGINEER HELICOPTER Please Remember to: Schedule colonoscopy; rescope in [address] Mattson, last one 01-14-2013 PATIENT: ( ) Call Patient ( ) Ask Patient to ( ) ( ) Call Relative ( ) Schedule Patient ( ) ( ) Call for Boiler Washer ( ) Follow up on Results ( ) Other: PROVIDER: ( ) Call Physician ( ) Call Pharmacist ( ) Call Lab ( ) Other: Special Instructions: Comments: Source: [facility] POWERCHART Document Id: [id number] Miscellaneous - Abe Mattson M.D. - 01/17/2013 10:59 AM CST [place] [address] Visit Information Name: ANTONINA JAUREGUI [facility] Number: [id number] Current Date: 01/17/2013 10:59:42 Physicians Attending Provider: [...] appointment detail needed. Your Goals/Additional instructions: Source: [facility] POWERCHART Document Id: [id number] HT ENGINEER HELICOPTER Miscellaneous - Abe Mattson M.D. - 01/17/2013 10:59 AM CST [place] [address] Visit Information Name: ANTONINA JAUREGUI [facility] Number: [id number] Visit Date: 01/17/2013 10:59:41 [...] provider for clarification. Additional Information: [facility] Document Id: [id number] HT ENGINEER HELICOPTER Miscellaneous - Geneva Lazcano - 01/17/2013 10:11 AM CST Adult Account Information Clerk Intake/History Adult Account Information Clerk Intake/History Entered On: 01/17/2013 10:13 FLIGHT ENGINEER HELICOPTER Performed On: 01/17/2013 10:11 FLIGHT ENGINEER HELICOPTER by GENEVA LAZCANO Intake Chief Complaint : colonoscopy results Temperature Core : 36.6 DegC(Converted to: 97.9 DegF) Systolic Blood Pressure : 108 mmHg Diastolic Blood Pressure : 64 mmHg NIBP Mean : 79 mmHg BP Location : Right upper extremity Blood Pressure Cuff Size : Regular GENEVA LAZCANO - 01/17/2013 10:11 FLIGHT ENGINEER HELICOPTER General Info Languages : Kiswahili GENEVA LAZCANO - 01/17/2013 10:11 FLIGHT ENGINEER HELICOPTER Subjective Pain Symptoms : No GENEVA LAZCANO - 01/17/2013 10:11 FLIGHT ENGINEER HELICOPTER Dependent Habits Tobacco Use/Currently Using : No Exposure to Tobacco Smoke : Patient smokes Smoking Status : Former smoker GENEVA LAZCANO - 01/17/2013 10:11 FLIGHT ENGINEER HELICOPTER [facility] Document Id: [id number] FLIGHT ENGINEER HELICOPTER!17 HT ENGINEER HELICOPTER documented in this encounter Plan of Treatment Not on filedocumented as of this encounter Visit Diagnoses Not on filedocumented in this encounter Additional Health Concerns Assessment Noted Time PHQ-9 Depression Total Score: 6 01/08/2013 9:31 AM FLIGHT ENGINEER HELICOPTER documented as of this encounter
--- OUTSIDE RECORDS SUMMARY | 2021-12-15 11:08 | XMS_ITS | Encounter Summary ---
:1960 Author Organization [facility] Address [address] [place] [address] Care Team Providers Name Role Phone Unavailable Primary Care Provider Unavailable Encounter Details Date Type Department Care Team Description 12/24/2014 Hospital Encounter HX [facility] FBHB LAB Ayden England M.D. 200 [place], [place] [address] (Wo rk) Social History [...] 12/11/2018 relatives? How often do you attend nondenominational or mandaen services? Patien t refused 12/11/2018 Do you belong to any clubs or organizations such as Patient refused 12/11/2018 nondenominational groups, unions, fraternal or athletic groups, or [...] BRADLEY LPN On: 12/25/2014 03:01 PM Source: [facility] POWERCHART Document Id: [id number] documented in this encounter Plan of Treatment Not on filedocumented as of this encounter Procedures Procedure Name Priority Date/Time Associated Comments Diagnosis ASPARTATE Routine 12/24/2014 10:44 Results for this AMINOTRANSFERASE (AST), AM CDT proc edure are in S/P the results section. documented in this encounter Results AST (Aspartate Aminotransferase) (12/24/2014 10:44 AM CDT) [facility] gist Method Time Signature Aspartate 37 8 [...]
--- OUTSIDE RECORDS SUMMARY | 2021-12-15 11:08 | XMS_ITS | Encounter Summary ---
:1960 Author Organization [facility] Address [address] [place] [address] Care Team Providers Name Role Phone Unavailable Primary Care Provider Unavailable Encounter Details Date Type Department Care Team Description 03/09/2011 Hospital Encounter HX [facility]ILY[facility] Ayden England M.D. 200 [place], [place] [address] (Wo rk) Social History [...] How often do you attend congregational or anglican services? Patien t refused 12/11/2018 [...] Comments Blood Pressure 110/72 03/09/2011 8:52 AM PLANT CONTROL AIDE Pulse 68 03/09/2011 8:52 AM PLANT CONTROL AIDE Temperature - - Respiratory Rate 12 03/09/2011 8:52 AM PLANT CONTROL AIDE Oxygen Saturation - - Inhaled Oxygen Concentration - - Weight 76.3 kg (168 lb 3.4 oz) 03/09/2011 8:52 AM PLANT CONTROL AIDE Height 169 cm (5' 6.54) 03/09/2011 8:52 AM PLANT CONTROL AIDE Body Mass Index 26.72 03/09/2011 8:52 AM PLANT CONTROL AIDE documented in this encounter H&P Notes Danica England M.D. - 03/09/2011 12:00 AM CST [id number] CHIEF COMPLAINT/REASON FOR VISIT Annual exam. HISTORY [...] 9. Asthma: No Lipids: 03-09-2011 Tdap booster: 2005 Pneumovax: Non applicable secondary to stated age. [...] urgent evaluation are reviewed. Otherwise as noted. [facility]/shawnk Signed Danica England M.D. Family Medicine Electronically Signed By: DANICA ENGLAND MD On: 03/09/2011 03:38 PM Modified by and Electronically Signed by: DANICA ENGLAND MD On: 03/09/2011 03:38 PM Source: [facility] MHSDOLBEYNONRADSYS Document Id: [id number] T CONTROL AIDE documented in this encounter Nursing Notes Conversion, Historical Provider Ser - 03/21/2011 8:48 AM CST Regarding Colonoscopy Letter mailed to patient asking her to call to schedule a colonoscopy that has been requested by Dr. England. Electronically Signed By: MADHU CABA LPN On: 03/21/2011 08:48 AM Source: [facility] POWERCHART Document Id: [id number] Conversion, Historical Provider Ser - 03/15/2011 9:55 AM CST Regarding Colonoscopy Message left for the patient to call to schedule a colonoscopy. Electronically Signed By: MADHU CABA LPN On: 03/15/2011 09:56 AM Source: [employer] Document Id: [id number] Oksana Bradley L.P.N. - 03/14/2011 12:01 PM CST Labs 03-09-11 Result card sent. Electronically Signed By: OKSANA BRADLEY LPN On: 03/14/2011 12:02 PM Source: [employer] Document Id: [id number] T CONTROL AIDE Conversion, Historical Provider Ser - 03/13/2011 9:54 AM CST Regarding Colonoscopy Message left for the patient to call to schedule a colonoscopy. Electronically Signed By: MADHU CABA LPN On: 03/13/2011 09:54 AM Source: [employer] Document Id: [id number] documented in this encounter Miscellaneous Notes Miscellaneous - Bishop Jiménez L.P.N. - 11/30/2011 12:02 PM CDT Phq-9 due From: BISHOP JIMÉNEZ LPN To: OKSANA BRADLEY LPN; Sent: 11/30/2011 12:02:35 CDT Show up: 02/07/2012 12:02:00 PLANT CONTROL AIDE Subject: Phq-9 due Due Date/Time: 03/09/2012 12:02:00 PLANT CONTROL AIDE Please Remember to: Patient is due for [...] Patient ( ) ( ) Call for Last Turner ( ) Follow up on Results ( ) Other: PROVIDER: ( ) Call Physician ( ) Call Pharmacist ( ) Call Lab ( ) Other: Special Instructions: Comments: Source: [employer] Document Id: [id number] Electronically signed by Conversion, [employer] Customer Service Associate [id number] at 07/29/2016 1:19 PM CDT Miscellaneous - Meri Morataya L.PBrigitteNBrigitte - 03/15/2011 3:51 PM CST PHQ-9 From: MERI MORATAYA LPN To: OKSANA BRADLEY LPN; Sent: 03/15/2011 15:51:37 PLANT CONTROL AIDE Show up: 08/09/2011 15:51:00 CDT Subject: PHQ-9 [...] Patient ( ) ( ) Call for Last Turner ( ) Follow up on Results ( ) Other: PROVIDER: ( ) Call Physician ( ) Call Pharmacist ( ) Call Lab ( ) Other: Special Instructions: Comments: Source: [employer] Document Id: [id number] Electronically signed by Conversion, [employer] Customer Service Associate [id number] at 07/29/2016 1:19 PM CDT Zach - Danica England M.D. - 03/09/2011 12:22 PM CST Meaningful Use Influenza Exclusion Meaningful Use Influenza Exclusion Entered On: 03/09/2011 12:22 PLANT CONTROL AIDE Performed On: 03/09/2011 12:22 PLANT CONTROL AIDE by DANICA ENGLAND MD Influenza Vaccine Exclusion Influenza Vaccine Exclusion : Patient declined DANICA ENGLAND MD - 03/09/2011 12:22 PLANT CONTROL AIDE Source: [facility] POWERCHART Document Id: [id number] PLANT CONTROL AIDE!3 T CONTROL AIDE Miscellaneous - Danica England M.D. - 03/09/2011 12:09 PM CST Ambulatory Patient Summary [address] [address] Visit Information Name: ANTONINA JAUREGUI Current Date: [...] Date Time Location Reason Provider 03/14/2011 09:30 [facility] Mammo screen Your Goals/Additional instructions: Source: [facility] POWERCHART Document Id: [id number] T CONTROL AIDE Miscellaneous - Danica England M.D. - 03/09/2011 12:09 PM CST Ambulatory Depart Summary [address] [address] Visit Information Name: ANTONINA JAUREGUI Current Date: [...] calcium-vitamin D (Calcium 600+D) Additional Information: Source: [facility] [employer] Document Id: [id number] T CONTROL AIDE Zach - Danica England M.D. - 03/09/2011 9:12 AM CST PHQ-9 PHQ-9 Entered On: 03/09/2011 9:12 PLANT CONTROL AIDE Performed On: 03/09/2011 9:12 PLANT CONTROL AIDE by DANICA ENGLAND MD PHQ-9 Little interest [...] difficult DANICA ENGLAND MD - 03/09/2011 9:12 PLANT CONTROL AIDE Source: [facility] Figure 1CHART Document Id: [id number] PLANT CONTROL AIDE!13 T CONTROL AIDE Zach - Oksana Bradley L.P.N. 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 Intake/History Entered On: 03/09/2011 8:53 PLANT CONTROL AIDE Performed On: 03/09/2011 8:52 PLANT CONTROL AIDE by OKSANA BRADLEY LPN Intake Chief Complaint [...] 26.71kg/m2 OKSANA BRADLEY LPN - 03/09/2011 8:52 PLANT CONTROL AIDE Subjective Pain Symptoms : No OKSANA BRADLEY LPN - 03/09/2011 8:52 PLANT CONTROL AIDE Dependent Habits Tobacco Use/Currently Using : Yes Smoking Status : Current some day smoker OKSANA BRADLEY LPN - 03/09/2011 8:52 PLANT CONTROL AIDE Allergy Allergies (Active) codeine Estimated Onset Date: Unspecified ; Created By: DANICA ENGLAND MD; Reaction Status: Active ; Category: Drug ; Substance: codeine ; Type: Allergy ; Updated By: DANICA ENGLAND MD; Reviewed Date: 03/09/2011 8:48 PLANT CONTROL AIDE Source: [facility] POWERCHART Document Id: [id number] PLANT CONTROL AIDE!21 T CONTROL AIDE Miscellaneous - Oksana Bradley L.PBrigitteNBrigitte - 03/09/2011 8:52 AM CST Health Assessment Health Assessment Entered On: 03/09/2011 8:54 PLANT CONTROL AIDE Performed On: 03/09/2011 8:52 PLANT CONTROL AIDE by OKSANA BRADLEY LPN Health Assessment Complete Health Assessment Complete or Modified : Annual Health Assessment Annual Health Assessment Completed : Yes OKSANA BRADLEY LPN - 03/09/2011 8:52 PLANT CONTROL AIDE Nutrition Nutrition Risk Factors by History Adult : None OKSANA BRADLEY LPN - 03/09/2011 8:52 PLANT CONTROL AIDE Functional Current Daily Living Assistance : None OKSANA BRADLEYFranny AYERS - 03/09/2011 8:52 PLANT CONTROL AIDE Dependent Habits Tobacco Use/Currently Using : Yes Smoking Status : Current some day smoker OKSANA BRADLEY ANDRIA - 03/09/2011 8:52 PLANT CONTROL AIDE Psychosocial Domestic Abuse Concerns : None OKSANA BRADLEYFranny AYERS - 03/09/2011 8:52 PLANT CONTROL AIDE Advance Directive Advanced Directives : No OSKANA BRADLEY ANDRIA - 03/09/2011 8:52 PLANT CONTROL AIDE Educ Needs Learning Style Preference Adult Grid Patient : Printed materials Family : Printed materials OKSANA BRADLEYFranny AYERS - 03/09/2011 8:52 PLANT CONTROL AIDE Source: [employer] Document Id: [id number] PLANT CONTROL AIDE!19 T CONTROL AIDE documented in this encounter Plan of Treatment Not on filedocumented as of this encounter Procedures Procedure Name Priority Date/Time Associated Comments Diagnosis THINPREP SCREEN HPV Routine 03/09/2011 1:07 Resul ts for this REFLEX PM PLANT CONTROL AIDE procedure are i n the results section. DIPSTICK, U Routine 03/09/2011 9:38 Results for this AM PLANT CONTROL AIDE procedure are i n the results section. LIPID PANEL, S Routine 03/09/2011 9:36 Results fo r this AM PLANT CONTROL AIDE procedure are i n the results section. AUTOMATED DIFFERENTIAL, Routine 03/09/2011 9:36 R esults for this B AM PLANT CONTROL AIDE procedure are i n the results section. CBC WITH DIFFERENTIAL, B Routine 03/09/2011 9:36 Results for this AM PLANT CONTROL AIDE procedure are i n the results section. ASPARTATE Routine 03/09/2011 9:36 Results for this AMINOTRANSFERASE (AST), AM PLANT CONTROL AIDE proc edure are in S/P the results section. THYROID-STIMULATING Routine 03/09/2011 9:36 Resul ts for this HORMONE-SENSITIVE AM PLANT CONTROL AIDE procedure are in (S-TSH) the results section. BASIC METABOLIC PANEL, Routine 03/09/2011 9:36 Re sults for this S/P AM PLANT CONTROL AIDE procedure are i n the results section. documented in this encounter Results Pathology ThinPrep Screen HPV Reflex (03/09/2011 1:07 PM PLANT CONTROL AIDE) [facility] Method Time Signature Interpretation [id number] POWERCHART HXThPrep Scrn See Comment POWERCHART Fnl-Russell Comment: A. ??ThinPrep Pap Test Screen (Cervical/ Endocervical HPV Reflex): Satisfactory for evaluation. Negative for intraepithelial lesion or m alignancy. HXThPrep Scrn Cyto-Russell See Comment ADRY RCHART Comment: Report electronically signed by JASON Landeros (ASCP) 03/14/2011 08:11 Interpreted by: JASON Landeros (ASCP) HX Spec [facility] See Comment POWERCHART Comment: A. ??ThinPrep Pap Test Screen (Cervical/ Endocervical HPV Reflex): Received cloudy specimen in ThinPrep via l. Test Performed by: [facility] Dpt of Lab Med and Pathology [address] [place] [address] Executive Candidate Developer: Darius weston III, M.D. Specimen (Source) Anatomical Collection Method Collection Time Re ceived Time Location / / Volume Laterality Cervix/Endocervix 03/09/2011 1:07 PM PLANT CONTROL AIDE Danica England M.D. LAB PAP PATHDX ORDERABLES Performing Organization Address City/[facility]/ZIP Code Phon e Number POWERCHART (ABNORMAL) Dipstick, Urine (03/09/2011 9:38 AM PLANT CONTROL AIDE) [facility] Method Time Signature Source Clean Void POWERCHART Urine HXUr Color Yellow POWERCHART Appearance Clear POWERCHART Glucose Negative Negative POWERCHART HXBILIRUBIN Negative Negative POWERCHART Ketones, QL(U) Trace (A) Negative POWERCHART Specific 1.025 (A) 1.020 POWERCHART [place], POCT, U HXBLOOD Moderate (A) Negative POWERCHART pH, POCT, Urine 5.5 5.0 - 8.0 POWERCHART Protein, Ur, Dip Negative Negative POWERCHART Urobilinogen 0.2 0.2 - 1.0 POWERCHART HXNITRITE Negative Negative POWERCHART Leukocyte Trace (A) Negative POWERCHART Esterase Specimen (Source) Anatomical Collection Method Collection Time Re ceived Time Location / / Volume Laterality Urine 03/09/2011 9:38 AM PLANT CONTROL AIDE Danica England M.D. LAB URINE ORDERABLES Performing Organization Address City/State/ZIP Code Phon e Number POWERCHART Automated Differential (03/09/2011 9:36 AM PLANT CONTROL AIDE) P athologist Signature Neutro % 46.3 34.0 - 71.1 POWERCHART Lymphocytes % 42.7 19.3 - 51.7 POWERCHART HX [place] % 9.2 4.7 - 12.5 POWERCHART HX Eos % 1.5 0.7 - 5.8 POWERCHART HX Baso % 0.3 0.1 - 1.2 POWERCHART Specimen Anatomical Collection Method Collection Time Receive d Time (Source) Location / / Volume Laterality Blood 03/09/2011 9:36 AM 2 9:36 PLANT CONTROL AIDE AM PLANT CONTROL AIDE Danica England M.D. LAB BLOOD ADD-ON Performing Organization Address City/[facility]/ZIP Code Phon e Number POWERCHART CBC with Differential (03/09/2011 9:36 AM PLANT CONTROL AIDE) P athologist Signature Leukocytes 6.0 3.5 - [...] / Volume Laterality Blood 03/09/2011 9:36 AM PLANT CONTROL AIDE Danica England M.D. LAB BLOOD ADD-ON Performing Organization Address City/State/ZIP Code Phon e Number POWERCHART Thyroid-Stimulating Hormone-Sensitive (s-TSH) (03/09/2011 9:36 AM PLANT CONTROL AIDE) P athologist Signature TSH, Sensitive 2.4 0.3 - 5.0 POWERCHART MIUL Comment: Test Performed by: [facility] Dpt of Lab Med and Pathology [address] [place] [address] Executive Candidate Developer: Darius weston III, M.D. Specimen (Source) Anatomical Collection Method Collection Time Re ceived Time Location / / Volume Laterality Blood 03/09/2011 9:36 AM PLANT CONTROL AIDE Danica England M.D. LAB BLOOD ADD-ON Performing Organization Address City/State/ZIP Code Phon e Number POWERCHART (ABNORMAL) BMP (Basic Metabolic Panel) (03/09/2011 9:36 AM PLANT CONTROL AIDE) athologist Signature BUN (Blood Urea 15 6 [...] / Volume Laterality Blood 03/09/2011 9:36 AM PLANT CONTROL AIDE Danica England M.D. LAB BLOOD ADD-ON Performing Organization Address City/State/ZIP Code Phon e Number POWERCHART (ABNORMAL) Lipid Panel (03/09/2011 9:36 AM PLANT CONTROL AIDE) [facility] gist Method Time Signature Cholesterol, Total 326 (H) 0 - 200 POWERCHART MGDL HX HDL 54.0 40.0 - POWERCHART 60.0 MGDL Triglycerides 139 0 - 150 POWERCHART MGDL Calculated LDL 244 (H) 0 - 100 POWERCHART MGDL Specimen (Source) Anatomical Collection Method Collection Time Re ceived Time Location / / Volume Laterality Blood 03/09/2011 9:36 AM PLANT CONTROL AIDE Danica England M.D. LAB BLOOD ADD-ON Performing Organization Address City/State/ZIP Code Phon e Number POWERCHART AST (Aspartate Aminotransferase) (03/09/2011 9:36 AM PLANT CONTROL AIDE) [facility] gist Method Time Signature Aspartate 35 8 - 43 POWERCHART Aminotransferase UNITL (AST), S Specimen (Source) Anatomical Collection Method Collection Time Re ceived Time Location / / Volume Laterality Blood 03/09/2011 9:36 AM PLANT CONTROL AIDE Danica England M.D. LAB BLOOD ADD-ON Performing Organization Address City/State/ZIP Code Phon e Number POWERCHART documented in this encounter Visit Diagnoses Not on filedocumented in this encounter Additional Health Concerns Assessment Noted Time PHQ-9 Depression Total Score: 9 03/09/2011 9:12 AM PLANT CONTROL AIDE documented as of this encounter
--- OUTSIDE RECORDS SUMMARY | 2021-12-15 11:08 | XMS_ITS | Encounter Summary ---
:1960 Author Organization [facility] Address [address] [place] [address] Care Team Providers Name Role Phone Unavailable Primary Care Provider Unavailable Encounter Details Date Type Department Care Team Description 08/21/2012 Hospital Encounter HX [facility] FBHB FAMILYPRA Ayden England M.D. 200 [place], [place] [address] (Wo rk) Social History [...] How often do you attend worship or moravian services? 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 - 08/21/2012 2:15 PM CDT [id number] CHIEF COMPLAINT/REASON FOR VISIT Multiple issues. HISTORY OF PRESENT ILLNESS 52-year-old female presents to clinic secondary to multiple issues. Interested in beginning a cholesterol lowering medication. Has just increased her sertraline up to 100 mg. Has been on this dose for a week or two. [place] worse after she weaned off the Celexa. Continues to smoke. Is trying to follow her diet but it is difficult. Has plans for well woman examination with her [facility] in [place]. She has also had a cold for [...] to go to [facility] in [place] in the near future. Pap smear: 03/09/2011. Chlamydia: Non applicable secondary to stated age. Colon screening: Has plans to discuss this with her provider in [place] and declines scheduling here in [place], declines FIT card. Depression: Yes. PHQ-9 score [...] ENGLAND MD On: 08/23/2012 12:08 PM Source: [facility] MHSDOLBEYNONRADSYS Document Id: [id number] documented in this encounter Miscellaneous Notes Miscellaneous - Danica England M.D. - 08/21/2012 4:42 PM CDT Ambulatory Patient Summary [address] [address] Visit Information Name: GEMA JAUREGUI [facility] Number: [id number] Current Date: 08/21/2012 16:42:29 Physicians [...] No Appointments found Your Goals/Additional instructions: Source: [facility] POWERCHART Document Id: [id number] Miscellaneous - Danica England M.D. - 08/21/2012 4:42 PM CDT Ambulatory Depart Summary [address] [address] Visit Information Name: GEMA JAUREGUI [facility] Number: [id number] Visit Date: 08/21/2012 16:42:28 Attending [...] Additional Information: Source: [facility] [employer] Document Id: [id number] Zach - Danica England M.D. - 08/21/2012 [...] ENGLAND MD - 08/21/2012 16:36 CDT Source: [facility] [employer] Document Id: [id number] CDT!13 Miscellaneous - Dominick Bradley L.PCarlos - 08/21/2012 2:26 PM CDT Adult Medical Physiologist Intake/History Adult Medical Physiologist Intake/History Entered On: 08/21/2012 14:29 CDT Performed [...] 08/21/2012 14:26 CDT General Info Languages : Ukrainian DOMINICK BRADLEY LPN - 08/21/2012 14:26 CDT [...] BRADLEY LPN - 08/21/2012 14:26 CDT Source: [employer] Document Id: [id number] CDT!25 documented in this encounter Plan of Treatment Not on filedocumented as of this encounter Visit Diagnoses Not on filedocumented in this encounter Additional Health Concerns Assessment Noted Time PHQ-9 Depression Total Score: 8 08/21/2012 4:36 PM CDT documented as of this encounter
--- OUTSIDE RECORDS SUMMARY | 2021-12-15 11:08 | XMS_ITS | Encounter Summary ---
:1960 Author Organization [facility] Address [address] [place] [address] Care Team Providers Name Role Phone Unavailable Primary Care Provider Unavailable Encounter Details Date Type Department Care Team Description 06/03/2012 Hospital Encounter HX [facility] LAB Ayden England M.D. 200 [place], [place] [address] (Wo rk) Social History [...] How often do you attend episcopalian or moravian services? Patien t refused 12/11/2018 [...] BRADLEY LPN On: 06/05/2012 03:20 PM [facility] POWERCHART Document Id: [id number] documented in this encounter Plan of Treatment [...] (ABNORMAL) Dipstick, Urine (06/03/2012 9:40 AM CDT) [facility] gist Method Time Signature Source Clean Void POWERCHART Urine HXUr Color Yellow POWERCHART Appearance Slightly POWERCHART Cloudy (A) Glucose Negative Negative POWERCHART HXBILIRUBIN Trace (A) Negative POWERCHART Ketones, QL(U) Trace (A) Negative POWERCHART Specific 1.025 (A) 1.020 POWERCHART [place], POCT, U HXBLOOD Trace Intact Negative POWERCHART [...] % 39.6 19.3 - 51.7 POWERCHART HX [place] % 8.4 4.7 - 12.5 POWERCHART HX [...] X109L Erythrocytes 4.31 3.90 - POWERCHART 5.03 [id number] Hemoglobin 13.4 12.0 - POWERCHART 15.5 GDL [...] (ABNORMAL) Lipid Panel (06/03/2012 9:37 AM CDT) Patholo gist Method Time Signature Cholesterol, Total 300 [...] AST (Aspartate Aminotransferase) (06/03/2012 9:37 AM CDT) Patholo gist Method Time Signature Aspartate 32 8 [...]
--- OUTSIDE RECORDS SUMMARY | 2021-12-15 11:08 | XMS_ITS | Encounter Summary ---
:1960 Author Organization [facility] Address [address] [place] [address] Care Team Providers Name Role Phone Unavailable Primary Care Provider Unavailable Encounter Details Date Type Department Care Team Description 09/02/2014 Hospital Encounter HX [facility] FAMILYPRA Ayden England M.D. 200 [place], [place] [address] (Wo rk) Social History [...] How often do you attend spiritism or anabaptist services? Patien t refused 12/11/2018 [...] England M.D. - 09/03/2014 12:00 AM CDT [id number] Patient's total cholesterol is 362, triglycerides 181, LDL 274. Would recommend following up in the clinic to discuss changing her medications. Her rheumatologic evaluation was negative. Card is sent to patient in regard to this issue. Danica England M.D./melodie Electronically Signed By: DANICA ENGLAND MD On: 09/06/2014 12:02 PM Modified by and Electronically Signed by: DANICA ENGLAND MD On: 09/06/2014 12:02 PM Source: [facility] MHSDOLBEYNONRADSYS Document Id: [id number] Danica England M.D. - 09/02/2014 9:58 AM CDT [id number] CHIEF COMPLAINT/REASON FOR VISIT Several issues. HISTORY [...] does have restless legs, has tried several phof-bwl-hdrrwga remedies with no significant relief of her [...] well groomed. MUSCULOSKELETAL: Positive radial ulnar pulses. Weigher And Grader is intact. Degenerative changes more marked on [...] ENGLAND MD On: 09/06/2014 12:12 PM Source: [facility] MHSDOLBEYNONRADSYS Document Id: [id number] documented in this encounter Nursing Notes Dominick Bradley L.P.N. - 09/07/2014 9:10 AM CDT Labs 09-02-14 Result card sent. Electronically Signed By: DOMINICK BRADLEY LPN On: 09/07/2014 09:11 AM Source: [facility] POWERCHART Document Id: [id number] documented in this encounter Miscellaneous Notes Miscellaneous - Danica England M.D. - 09/02/2014 12:44 PM CDT Ambulatory Patient Summary [address] [id number] Visit Information Name: GEMA JAUREGUI [facility] Number: [id number] Current Date: 09/02/2014 12:44:25 Physicians [...] if you dont have one. Go to [email or web address] and click on Create Your Account. Then, follow the directions to complete the online form. Youll be asked for your [facility] number which you can find at the top of this document. Your Goals/Additional instructions: Source: [facility] POWERCHART Document Id: [id number] Miscellaneous - Danica England M.D. - 09/02/2014 12:44 PM CDT Ambulatory Discharge Medication List [address] [id number] Visit Information Name: GEMA JAUREGUI [facility] Number: [id number] Visit Date: 09/02/2014 12:44:23 Attending [...] MD Signed On:02-SEP-2014 12:44:10 Additional Information: Source: [facility] POWERCHART Document Id: [id number] Miscellaneous - Dominick Bradley L.P.NBrigitte - 09/02/2014 10:18 AM CDT Adult Web Knitter Intake/History Adult Web Knitter Intake/History Entered On: 09/02/2014 10:20 CDT Performed [...] 09/02/2014 10:18 CDT General Info Languages : Yakut Is Patient Female and 13-50 no hysterectomy : No DOMINICK BRADLEY LPN - 09/02/2014 10:18 CDT Subjective Pain Symptoms : No DOMINICK BRADLEY LPN - 09/02/2014 10:18 CDT Dependent Habits Tobacco Use/Currently Using : No Tobacco Use/Last 12 months : Yes Exposure to Tobacco Smoke : Other: former Smoking Status : Former smoker DOMINICK BRADLEY LPN - 09/02/2014 10:18 CDT Source: [facility] Document Id: [id number] CDT!23 documented in this encounter Plan of [...] LAB BLOOD ADD-ON Performing Organization Address City/[facility]/ZIP Code Phon e Number POWERCHART PEDRO (Antinuclear Antibodies) (09/02/2014 10:54 AM CDT) P athologist Signature Antinuclear Ab 0.2 <=1.0 POWERCHART Screen by IFA, S (Negative) UNITS Comment: Test Performed by: [place] [address] Assistive Technology Specialist: Enzo Ricci II, M.D., Ph.D. Specimen (Source) Anatomical Collection Method Collection Time Re ceived Time Location / / Volume Laterality Blood 09/02/2014 10:54 AM CDT Danica England M.D. LAB BLOOD ADD-ON Performing Organization Address City/[facility] Code Phon e Number POWERCHART Rheumatoid Factor (09/02/2014 10:54 AM CDT) athologist Signature Rheumatoid 11 <=15 IUL POWERCHART Factor, S Specimen (Source) Anatomical Collection Method Collection Time Re ceived Time Location / / Volume Laterality Blood 09/02/2014 10:54 AM CDT Danica England M.D. LAB BLOOD ADD-ON Performing Organization Address City/[facility]/ZIP Code Phon e Number POWERCHART (ABNORMAL) Lipid [...] FH and FDB is available mariana arguello [facility] Laboratories: FH/ADH Genetic Reflex [place] el (test ADHP). Acquired (non-genetic) causes of markedly increased LDL cholesterol include cholestatic liver disease due to the presence of LpX. If a genetic form of hypercholesterolemia is suspected, family studies including biochemical testing fo r lipids (total cholesterol,triglycerides, LDL cholesterol and HDL cholesterol) are recommended. ??Please contact the laboratory at or the on-line test catalog at [employer] for information about how to order these [...]
--- OUTSIDE RECORDS SUMMARY | 2021-12-15 11:09 | XMS_ITS | Encounter Summary ---
:1960 Author Organization [facility] Address [address] [place] [address] Care Team Providers Name Role Phone Unavailable Primary Care Provider Unavailable Encounter Details Date Type Department Care Team Description 11/24/2008 Hospital Encounter HX NO MAPPING Danica England M.D. [address] [place] [phone] (Wo rk) Social History Tobacco [...] How often do you attend jew or scientology services? Patien t refused 12/11/2018 [...] 11/24/2008 8:56 AM CDT Addenda Addendum by Provider, Eva Mcneill 11/24/2008 8:56 AM CDT RAD^^^OW MA Mammo Screening w ??CADD 11/24/2008 08:56:00 Addendum by ProviderCharito M.D. o n 11/24/2008 9:19 AM CDT RAD^^^OW MA Mammo Screening w ??CADD 11/24/2008 09:19:00 Addendum by Provider, Eva Mcneill o n 11/24/2008 8:56 AM CDT RAD^^^MA MA MAMMO SCREENING W/CADD 11/24/2008 08:56:00 Addendum by Provider, Eva Mcneill o n 11/24/2008 9:19 AM CDT RAD^^^MA [...]
--- OUTSIDE RECORDS SUMMARY | 2021-12-15 11:09 | XMS_ITS | Encounter Summary ---
:1960 Author Organization [facility] Address [address] [place] [address] Care Team Providers Name Role Phone Unavailable Primary Care Provider Unavailable Encounter Details Date Type Department Care Team Description 06/23/2008 Hospital Encounter HX NO MAPPING Danica England M.D. [address] [place] [phone] (Wo rk) Social History Tobacco [...] How often do you attend yarsani or roman catholic services? Patien t refused [...] tissue swelling is identified. ? Procedure Note ProviderCharito M.D. - 08/01/2016F ormatting of this note might [...] left thumb. Historical Provider IMG DIAGNOSTIC IMAGING PROCE BOOKER documented in this encounter Visit Diagnoses Not on filedocumented in this encounter Additional Health Concerns Assessment Noted Time PHQ-9 Depression Total Score: 9 06/23/2008 11:15 AM CD T documented as of this encounter
--- OUTSIDE RECORDS SUMMARY | 2021-12-15 11:09 | XMS_ITS | Encounter Summary ---
:1960 Author Organization [facility] Address [address] [place] [address] Care Team Providers Name Role Phone Unavailable Primary Care Provider Unavailable Encounter Details Date Type Department Care Team Description 02/23/2010 Hospital Encounter HX [facility] FBHB FAMILYPRA Ayden England M.D. 200 [place], [place] [address] (Wo rk) Social [...] How often do you attend adventist or pentecostalism services? Patien t refused 12/11/2018 [...] England M.D. - 02/23/2010 12:00 AM CST [id number] IMPRESSION/REPORT/PLAN 1. Annual exam 2. Periodontitis. 3. [...] 2+ in triceps, biceps, knees and ankles. BJ/kmk Signed Danica England M.D. Family Medicine Electronically Signed By:DANICA ENGLAND MD On 02/24/2010 12:07 pm Modified by:DANICA ENGLAND MD On 02/24/2010 12:07 pm Source: [facility] MHSDOLBEYNONRADSYS Document Id: [id number] IFIED NURSES' AIDE documented in this encounter Nursing Notes Dominick Bradley LBrigitteP.N. - 04/01/2010 11:49 AM CST Labs 04-01-10 Result card sent per Dr. England. Electronically Signed By:DOMINICK BRADLEY LPN On 04/01/2010 11:49 am Source: [facility] [employer] Document Id: [id number] IFIED NURSES' AIDE Dominick Bradley L.P.N. - 03/02/2010 4:33 PM CST Labs 02-23-10 Result card sent per Dr. England. Electronically Signed By:DOMINICK BRADLEY LPN On 03/02/2010 04:33 pm Source: [facility] [employer] Document Id: [id number] IFIED NURSES' AIDE documented in this encounter Miscellaneous Notes Miscellaneous - Danica England M.D. - 02/23/2010 11:56 AM CST PHQ-9 PHQ-9 Entered On: 02/23/2010 11:56 CERTIFIED NURSES' AIDE Performed On: 02/23/2010 11:56 CERTIFIED NURSES' AIDE by DANICA ENGLAND MD PHQ-9 Little [...] all DANICA ENGLAND MD - 02/23/2010 11:56 CERTIFIED NURSES' AIDE Source: [facility] [employer] Document Id: [id number] CERTIFIED NURSES' AIDE!13 IFIED NURSES' AIDE Miscellaneous - Danica England M.D. - 02/23/2010 10:04 AM CST Ambulatory Patient Summary [address] [id number] Visit Information Name: GEMA JAUREGUI Current Date: 02/23/2010 10:04:58 Primary Care Provider: DANICA ENGLAND MD [phone] Your Medications Here is a list of [...] 09:15 FBHB Lab Your Goals/Additional instructions: Source: [facility] POWERCHART Document Id: [id number] Miscellaneous - Danica England M.D. - 02/23/2010 10:04 AM CST Ambulatory Depart Summary [address] [id number] Visit Information Name: JUVENTINOSERENEA Current Date: 02/23/2010 10:04:57 Primary Care Provider: DANICA ENGLAND MD [phone] GEMA JAUREGUI has been given the following [...] day needs follow up Additional Information: Source: [facility] [employer] Document Id: [id number] Miscellaneous - Dominick Bradley L.P.NBrigitte - 02/23/2010 8:45 AM CST Adult Tube Sorter Intake/History Adult Tube Sorter Intake/History Entered On: 02/23/2010 8:46 CERTIFIED NURSES' AIDE Performed On: 02/23/2010 8:45 CERTIFIED NURSES' AIDE by DOMINICK BRADLEY LPN Intake Chief Complaint: [...] 27kg/m2 DOMINICK BRADLEY LPN - 02/23/2010 8:45 CERTIFIED NURSES' AIDE Subjective Pain Symptoms: No DOMINICK BRADLEY LPN - 02/23/2010 8:45 CERTIFIED NURSES' AIDE Dependent Habits Tobacco Use/Currently Using: No DOMINICK BRADLEY LPN - 02/23/2010 8:45 CERTIFIED NURSES' AIDE Allergies Allergies (Active) codeine Estimated Onset Date: Unspecified ; Created By: DANICA ENGLAND MD; Reaction Status: Active ; Category: Drug ; Substance: codeine ; Type: Allergy ; Updated By: DANICA ENGLAND MD; Reviewed Date: 02/23/2010 8:41 CERTIFIED NURSES' AIDE Source: [facility] [employer] Document Id: [id number] CERTIFIED NURSES' AIDE!19 IFIED NURSES' AIDE documented in this encounter Plan of Treatment Not on filedocumented as of this encounter Procedures Procedure Name Priority Date/Time Associated Diagnosis Comme nts THINPREP SCREEN HPV Routine 02/23/2010 9:25 AM Re sults for this REFLEX CERTIFIED NURSES' AIDE procedure are i n the results section. documented in this encounter Results ThinPrep Screen HPV Reflex (02/23/2010 9:25 AM CERTIFIED NURSES' AIDE) [facility] Method Time Signature Interpretation [id number] POWERCHART HXThPrep Scrn See Comment POWERCHART [facility] Comment: A. ??ThinPrep Pap Test Screen (Cervical/ Endocervical HPV Reflex): Satisfactory for evaluation. Negative for intraepithelial lesion or m alignancy. Screened at [facility] Cytology Analysi s Office [address] [place] [address] HXThPrep Scrn [facility] See Comment ADRY CONTRERAS Comment: Report electronically signed by JARED Garcia(ASCP) 03/01/2010 11:28 Interpreted by: AJRED Garcia(ASCP) HX Spec Desc-[place] See Comment POWERCHART Comment: A. ??ThinPrep Pap Test Screen (Cervical/ Endocervical HPV Reflex): Received cloudy specimen in ThinPrep via l. Test Performed by: [facility] Dpt of Lab Med and Pathology [address] [place] [address] Technical Staff Assistant: Darius weston III, M.D. Specimen (Source) Anatomical Collection Method Collection Time Re ceived Time Location / / Volume Laterality Cervix/Endocervix 02/23/2010 9:25 AM CERTIFIED NURSES' AIDE Danica England M.D. LAB PAP PATHDX ORDERABLES Performing Organization Address City/State/ZIP Code Phon e Number POWERCHART documented in this encounter Visit Diagnoses Not on filedocumented in this encounter Additional Health Concerns Assessment Noted Time PHQ-9 Depression Total Score: 3 02/23/2010 11:56 AM CS T documented as of this encounter
--- OUTSIDE RECORDS SUMMARY | 2021-12-15 11:09 | XMS_ITS | Encounter Summary ---
:1960 Author Organization [facility] Address [address] [place] [address] Care Team Providers Name Role Phone Unavailable Primary Care Provider Unavailable Encounter Details Date Type Department Care Team Description 02/23/2010 Hospital Encounter HX [facility] FB Kim Lyons M.D. 200 [place], [place] [address] (Wo rk) Social History [...] How often do you attend yazidism or protestant services? Patien t refused 12/11/2018 Do you [...] Procedure Name Priority Date/Time Associated Diagnosis Comme [facility] BI BREAST SCREENING Routine 02/23/2010 10:46 AM R esults for this BILATERAL OPTICAL FABRICATOR procedure are i n the results section. documented in this encounter Results BI Breast Screening Bilateral (02/23/2010 10:46 AM OPTICAL FABRICATOR) Anatomical Region Laterality Modality Breast Bilateral Mammography Specimen (Source) Anatomical Collection Method Collection Time Re ceived Time Location / / Volume Laterality 02/23/2010 10:46 AM OPTICAL FABRICATOR Addenda Addendum by ProviderCharito M.D. o n 02/23/2010 10:46 AM OPTICAL FABRICATOR RAD^^^OW MA Mammo Screening w ??CADD 02/23/2010 10:46:00 Addendum by ProviderCharito M.D. o n 02/23/2010 10:32 AM OPTICAL FABRICATOR RAD^^^MA MA MAMMO SCREENING W CADD 02/23/2010 10:32:00 Impressions 02/23/2010 12:58 PM OPTICAL FABRICATOR Negative mammogram. ??Recommend annual screening mammography. ?? BREAST MAMMOGRAPHY - GENERAL OBSERVATION S: ??The false negative rate for mammography is 15-20%. ??It cannot b e used, therefore, to replace the regular physical examination. ??A no rmal or noncontributory mammogram report also should not deter t he aggressive further workup of any suspected palpable masses. ?? ACR Code 1. Narrative 02/23/2010 12:58 PM OPTICAL FABRICATOR COMPARISON: 04/30/2007, 11/24/2008. ?? FINDINGS: Breast tissue [...]
--- OUTSIDE RECORDS SUMMARY | 2021-12-15 11:09 | XMS_ITS | Encounter Summary ---
:1960 Author Organization [facility] Address [address] [place] [address] Care Team Providers Name Role Phone Unavailable Primary Care Provider Unavailable Encounter Details Date Type Department Care Team Description 12/31/2008 Hospital Encounter HX NO MAPPING Danica England M.D. [address] [place] [phone] (Wo rk) Social History Tobacco [...] How often do you attend spiritism or sabianist services? Patien t refused 12/11/2018 [...] encounter Miscellaneous Notes Miscellaneous - Sybil Mireles, L.P.N. - 06/23/2008 11:15 AM CDT PHQ-9 PHQ-9 [...] MIRELES LPN - 09/01/2009 11:15 CDT Source: [facility] [employer] Document Id: [id number] CDT!14 documented in this encounter Plan of Treatment Not on filedocumented as of this encounter Procedures Procedure Name Priority Date/Time Associated Diagnosis Comme nts DX CHEST AP OR PA Routine 12/31/2008 4:34 PM Resu lts for this AND LATERAL 2 VIEWS BONE DRIER OPERATOR procedur e are in the results section. documented in this encounter Results DX Chest AP or PA and Lateral 2 Views (12/31/2008 4:34 PM BONE DRIER OPERATOR) Anatomical Region Laterality Modality Chest N/A Radiographic Imaging Specimen (Source) Anatomical Collection Method Collection Time Re ceived Time Location / / Volume Laterality 12/31/2008 4:34 PM BONE DRIER OPERATOR Addenda Addendum by ProviderCharito M.D. o n 12/31/2008 4:34 PM BONE DRIER OPERATOR RAD^^^MA XR CHEST 2 VIEWS 12/31/2008 16:34:00 XR CHEST 2 VIEWS Addendum by ProviderCharito M.D. o n 12/31/2008 4:34 PM BONE DRIER OPERATOR RAD^^^MA XR CHEST 2 VIEWS 12/31/2008 16:34:00 XR CHEST 2 VIEWS Addendum by ProviderCharito M.D. o n 12/31/2008 4:34 PM BONE DRIER OPERATOR RAD^^^OW XR Chest 2 Views 12/31/2008 16:34:00 Impressions 12/31/2008 4:47 PM BONE DRIER OPERATOR Stable examination. No acute disease of the chest. Narrative 12/31/2008 4:47 PM BONE DRIER OPERATOR PA and lateral views of the chest [...] acute disease of the chest. Tomy Corrales Jr., R.D.M.S. IMG DIAGNOSTIC IMAGI NG PROCEDURES documented in this encounter Visit Diagnoses Not on filedocumented in this encounter Additional Health Concerns Assessment Noted Time PHQ-9 Depression Total Score: 9 06/23/2008 11:15 AM CD T documented as of this encounter
--- OUTSIDE RECORDS SUMMARY | 2021-12-15 11:10 | XMS_ITS | Clinical Summary ---
:1960 Author Organization [facility] [place] [address] Care Team Providers Name Role Phone Danica [...] 05/08/2011 Active tablet mouth once daily. Fish Oil-[place]-3 Fatty Take by mouth. 0 05/08/2011 Active [...] Addre ss Type Group PREFERRED ONE PREFERRED [id number] 2009-Presen [address] [place] [address] BRIELLE TANG (Home) [place], [place] [phone] (Work) Care Teams Media Relations Manager Relationship Specialty Start Date End Date Danica England MD PCP - General Family Practice 07/08/10
[2021-12-15 12:07] LABS: Albumin* 4.7 g/dL (3.3-5.0); Chloride* 104 mmol/L (96-114)
[2021-12-15 12:08] LABS: Sodium* 142 mmol/L (135-149)
[2021-12-15 12:10] LABS: Bilirubin Total* 0.3 mg/dL (0.1-1.5); Carbon Dioxide* 31 mmol/L (20-32); Creatinine* 0.8 mg/dL (0.5-1.5); Estimated Glomerular Filt Rate 84 ml/min
[2021-12-15 12:11] LABS: Alanine Aminotransferase* 34 U/L (4-35); Alkaline Phosphatase* 77 U/L (40-150); Aspartate Amino Transferase* 39 U/L (12-35); Blood Urea Nitrogen* 14 mg/dL (7-30); Calcium* 9.1 mg/dL (8.4-10.6); Glucose* 110 mg/dL (60-115); Total Protein* 6.8 g/dL (6.0-8.3)
[2021-12-15 12:29] LABS: Vitamin D 25 Hydroxy* 69 ng/mL (30-80)
[2021-12-15 12:47] LABS: Ferritin* 28.4 ng/mL (11.1-264.0)
[2021-12-15 13:02] LABS: Vitamin B12* 303 pg/mL (243-894)
== END 2021-12-15 10:57 | disposition home or self-care (01) ==
PROVIDERS: PCP Family Medicine; Visit Provider Family Medicine
DX: Z01.419 Encounter for gynecological examination (general) (routine) without abnormal findings (principal); R53.83 Other fatigue; G25.81 Restless legs syndrome; F41.9 Anxiety disorder, unspecified; E03.9 Hypothyroidism, unspecified; E78.5 Hyperlipidemia, unspecified
CPT/HCPCS: 80053; 82306; 82607; 82728

== ENCOUNTER 2023-05-10 14:57 | Outpatient (CLI) | payer OTHER, SELFPAY | END 2023-05-10 14:58 | disposition home or self-care (01) | PROVIDERS: PCP Family Medicine; Visit Provider Family Medicine | DX: E03.9 Hypothyroidism, unspecified (principal); E78.2 Mixed hyperlipidemia; G25.81 Restless legs syndrome; M85.80 Other specified disorders of bone density and structure, unspecified site | CPT/HCPCS: 80053; 80061; 82306; 82728; 84439; 84443 ==

== ENCOUNTER 2023-07-25 13:43 | Outpatient (CLI) | payer OTHER, SELFPAY ==
--- OUTSIDE RECORDS SUMMARY | 2023-07-25 13:45 | XMS_ITS | Clinical Summary ---
Author Organization [facility] Address [place], [place] [address] Care Team Providers Care Thermal Cutter Hand Name Role Phone Danica England MD Primary Care Provider [phone] Allergies Active Allergy Reactions Criticality Noted Date Comments Codeine Behavioral Disturbances 05/08/2011 Medications Medication Sig Dispensed Refills Start Date End Date Status buPROPion SR (WELLBUTRIN SR) 200 mg tablet Take 1 tablet by mouth 2 times daily. 0 05/08/2011 Active calcium carbonate-vitamin D3, 600 mg-400 unit, (CALCIUM 600 + D) tablet Take 1 tablet by mouth 2 times daily with meals. 0 05/08/2011 Active multivitamin (MVI) tablet Take 1 tablet by mouth once daily. 0 05/08/2011 Active Fish Oil-[place]-3 Fatty Acids (FISH OIL OMEGA 3-6-9) 300-1,000 mg CpDR Take by mouth. 0 05/08/2011 Active sertraline (ZOLOFT) 100 mg tablet Take 1.5 tablets by mouth once daily. 0 10/14/2012 Active simvastatin (ZOCOR) 20 mg tablet Take 1 tablet by mouth at bedtime. 0 10/14/2012 Active Active Problems Problem Noted Date Diagnosed Date Adjustment disorder with mixed anxiety and depre ssed mood 01/07/2010 Social History Tobacco Use Types Packs/Day Years Used Date Smoking Tobacco: Former Cigarettes Q uit: 12/14/2010 Smokeless Tobacco: Never Comments:5-10 cigs a day Alcohol Use Standard Drinks/Week Comments Not Asked 0 (1 standard drink = 0.6 oz pur e alcohol) Sex and Gender Information Value Date Recorded Sex Assigned at Not on file Gender Identity Not on file Sexual Orientation Not on file Obstetrics History Last Filed Vital Signs Vital Sign Reading Time Taken Comments Blood Pressure 94/63 10/14/2012 2:11 PM CDT Pulse 88 10/14/2012 2:11 PM CDT Temperature 36.6 ??C (97.9 ??F) 10/14/2012 2:11 PM CD T Respiratory Rate - - Oxygen Saturation 98% 10/14/2012 2:11 PM CDT Inhaled Oxygen Concentration - - Weight 73 kg (161 lb) 10/14/2012 2:11 PM CDT Height 166.4 cm (5' 5.5) 10/14/2012 2:11 PM CDT Body Mass Index 26.38 10/14/2012 2:11 PM CDT Plan of Treatment Health Maintenance Due Date Last Done Comments Tdap 07/22/1971 Depression screening for age 12+ 1972 HIV for age 15-65 07/22/1975 BMI (ht and wt on same day) for age 18+ 1978 Hepatitis C screening for ag e 18-79 1978 Tetanus booster 1980 Colonoscopy through age 75 2005 Mammogram for age 45-75 2005 Zoster (shingles) series for age 50+ (1 of 2) 2010 Lipids for age 45-75 01/24/2011 01/24/2006 COVID-19 vaccine series (3 2022- season) 2022 08/16/2020, 2020 Influenza for age 50-64 10/28/2023 Pap test for age 21-65 12/15/2024 2, 12/15/2021, 01/24/2006 Pneumococcal series for age 6-64 Aged Out No longer eligible b ased on patient's age to complete this topic Procedures Procedure Name Priority Date/Time Associated Diagnosis Comments HPV THIN PREP Routine 12/15/2021 11:11 AM CDT LIPID PANEL Timed 01/24/2006 9:18 AM MACHINE PACKAGER from Last 3 Months or Most Recently Relevant to Health Maintenance Results * (ABNORMAL) HPV HIGH RISK (12/15/2021 11:11 AM CDT) TYPE 16 Negative Negative 12/21/2021 2:27 PM CDT [facility] TYPE 18 Negative Negative 12/21/2021 2:27 PM CDT [facility] OTHER HIGH RISK TYPES Positive(A) Negative 12/21/2021 2:27 PM CDT [facility] Other (Cervical) 12/15/2021 11:11 AM CDT 12/20/2021 1:33 PM CDT Narrative [facility] - 12/21/2021 2:27 PM CDT Specimen is positive for the DNA of any one of, or combination of, the following high risk HPV types: 31, 33, 35, 39, 45, 51, 52, 56, 58, 59, 66, 68. HPV types 16 and 18 DNA were undetectable or below the pre-set threshold. ? Methodology: Mukesh Reyes 4800 HPV Test Karen Laguna MD MICROBIOLOGY [facility] [address] * (ABNORMAL) LIPID PANEL (01/24/2006 9:18 AM MACHINE PACKAGER) CHOLESTEROL,TOTAL 269(H) 110 - 199 mg/dL [facility] TRIGLYCERIDES 132 <150 mg/dL [facility] HDL CHOLESTEROL 71 >40 mg/dL [facility] CHOL/HDL RATIO 3.79 <4.51 [facility] LDL CHOLESTEROL 172(H) <131 mg/dL [facility] PATIENT STATUS Fasting [facility] 01/24/2006 9:18 AM MACHINE PACKAGER 01/24/2006 9:18 AM MACHINE PACKAGER Iona Velazquez MD CHEMISTRY [facility] [address] [place] [address] from Last 3 Months or Most Recently Relevant to Health Maintenance Care Teams Thermal Cutter Hand Relationship Specialty Start Date End Date Danica England MD PCP - General Family Practice 07/08/10
== END 2023-07-25 13:44 | disposition home or self-care (01) ==
LOC: NFLDREF 13:44
PROVIDERS: PCP Family Medicine; Visit Provider Obstetrics & Gynecology
DX: Z11.3 Encounter for screening for infections with a predominantly sexual mode of transmission (principal); Z12.4 Encounter for screening for malignant neoplasm of cervix
CPT/HCPCS: 87086; 87186

== ENCOUNTER 2024-07-02 08:11 | Outpatient (CLI) | payer OTHER, SELFPAY | END 2024-07-02 08:12 | disposition home or self-care (01) | LOC: NFLDREF 07-08 23:51 | PROVIDERS: PCP Family Medicine; Referring Provider Family Medicine; Visit Provider Family Medicine | DX: E78.5 Hyperlipidemia, unspecified (principal); E03.9 Hypothyroidism, unspecified; R53.83 Other fatigue; M81.0 Age-related osteoporosis without current pathological fracture | CPT/HCPCS: 80053; 80061; 82306; 84439; 84443 ==